=== PATIENT | female | born 1960 | race Caucasian/White ===

== ENCOUNTER → 2016-05-19 | Outpatient (CLI) | payer MEDICARE, MEDICAID ==
[~2016-05-19] MED LIST: AGM875T PO; ALBU17AE23 IH; ALBU8.5H2 IH; ALEN70TA2 PO; ALEN70TA47 PO; ALLERGY RELIEF PO; ALN70T PO; ARTHROTEC; ASP325T PO; ASP81TEC PO; ASPIRIN; AZMACORT INH; CHOL10003 PO; CHOL100084 PO; CRESTOR40 MG PO; CYCL10TA9 PO; CYMBALTA; DCS100C PO; DICL/MIS50 PO; DICL1TAB27 PO; DOXY-233 PO; DULO60CA6 PO; ESOM20SU PO; FEXO-104 PO; FLOVENT; FLT11013 IH; FLUT50DI2 INH; FOSAMAX; GABA300T PO; GABA600T2 PO; GABA800T2 PO; GABAPENTIN; GBPN300C PO; GLIP5TAB13 PO; HCT25T PO; HYDR-2890 PO; HYDR-34 PO; HYDR-3816 PO; HYDR-700 PO; HYDR12.56 PO; HYDR1TAB66 PO; IPRA3AMP11 INH; LEVO500T69 PO; LISI1TAB6 PO; LISI2.5T56 PO; LISINOPRIL; LOTREL PO; LRT10T PO; METF-380 PO; METF1000 PO; METFORMIN; METO-354 PO; METO10TA3 PO; METO25TA2 PO; MIRT15TA6 PO; MIRT30TA6 PO; MIRT45TA5 PO; MTF500T PO; MTP50T PO; NF-ESOM40C PO; OMEG-34 PO; OMG1KC PO; OXYC-309 PO; PREG100C22 PO; PREVACID; PROVENTIL; REGLAN; RNT150T PO; SCR1T1 PO; SIMV20TA3 PO; SIMV80TA3 PO; SIMVASTATIN; SRTR100T PO; SULF1TAB23 PO; TIZA4CAP PO; TRM50T PO
--- NOTE | 2016-05-19 14:46 | Diagnostic Imaging Report ---
EXAMINATION: DEXA scan. INDICATION: Osteopenia. TECHNIQUE: Bone mineral density estimated based on dual energy radiography over the lumbar spine and femoral necks, was performed. FINDINGS: The lumbar spine T-score is -1.2. This is 6% increased density compared to the previous study. The T score over the left femoral neck is -0.2 and on the right is -0.6. This is unchanged from previous measurements in 2014. IMPRESSION: Osteopenia. Dictated by: Dictated on workstation # [id number]
--- NOTE | 2016-05-19 18:27 | Diagnostic Imaging Report ---
Bilateral screening mammogram The current study was also evaluated with a Computer Aided Detection (CAD) system. INDICATION: Screening. No current complaints stated on the questionnaire. COMPARISON: 04/25/2014. FINDINGS: The breasts are composed of scattered fibroglandular densities. There are scattered benign-appearing calcifications. Allowing for technique and positional differences, no suspicious change is seen. IMPRESSION: No significant change. ACR BI-RADS Category 2: Benign findings. Result letter will be mailed to the patient. Note: At least 10% of breast cancer is not imaged by mammography. Dictated by: Dictated on workstation # [id number]
== END ==
LOC: RAD 10:16
PROVIDERS: ATTEND Nurse Practitioner Family
DX: Z12.31 Encounter for screening mammogram for malignant neoplasm of breast (principal); M85.88 Other specified disorders of bone density and structure, other site
CPT/HCPCS: 77080

== ENCOUNTER → 2016-10-13 | Outpatient (CLI) | payer MEDICARE, MEDICAID ==
--- NOTE | 2016-10-13 18:47 | ECHOCARDIOGRAPHY REPORT ---
DATE OF SERVICE: 10/13/2016 TWO DIMENSIONAL ECHOCARDIOGRAM REFERRING PHYSICIAN: Dr. Ambar Harrison MEASUREMENT: LVID end diastolic 3.7. IVS thickness 1.0. LVPW thickness 0.7. Left atrial diameter 4.6. Ejection fraction 60%. FINDINGS: 1. Technical quality is good. 2. The left ventricle is normal in size with normal contractility, systolic function appeared to be normal, estimated ejection fraction 60%, diastolic dysfunction is suggested by Doppler. 3. The left atrium is dilated. No clot or thrombus were seen within the left atrium. 4. The right atrium and right ventricle are normal in size. No clot or thrombus were seen within the right side. 5. Mitral valve is normal in morphology with mild mitral regurgitation noted by color Doppler flow. Doppler across the mitral valve showed E-A reversal, which is suggestive of diastolic dysfunction. 6. Aortic valve is trileaflet with normal opening and closing pattern. No significant aortic stenosis or regurgitation was seen. 7. Tricuspid valve is normal in morphology with mild tricuspid regurgitation noted by color Doppler flow. Doppler across the tricuspid valve estimated pulmonary artery pressure of 24+ right atrial pressure. 8. Pulmonic valve is functioning normally. 9. No pericardial effusion. CONCLUSION: 1. Normal left ventricular size and systolic function. Estimated ejection fraction 60%. Diastolic dysfunction is suggested by Doppler. 2. Left atrial dilatation. 3. Mild mitral and tricuspid regurgitation. 4. Estimated pulmonary artery pressure of 30 mmHg. Job ID: [id number] DocumentID: [id number] Dictated Date: 10/13/2016 12:32:42 Rn Homecare Date: 10/13/2016 13:00:16 Dictated By: CAROLINA ABAD MD
== END ==
LOC: CARD 11:06
PROVIDERS: ATTEND Physician Assistant
DX: I25.10 Atherosclerotic heart disease of native coronary artery without angina pectoris (principal); R00.2 Palpitations; E78.2 Mixed hyperlipidemia; E66.01 Morbid (severe) obesity due to excess calories; I08.1 Rheumatic disorders of both mitral and tricuspid valves
CPT/HCPCS: 93306

== ENCOUNTER → 2016-12-28 | Outpatient (CLI) | payer MEDICARE, MEDICAID ==
[~2016-12-28] VITALS: Ht 165.1 cm; Wt 113.4 kg
[~2016-12-28] MED LIST changes: +CATHETER FLUSH 10 ML SYR IV PRN; +REGADENOSON 0.4 MG/5 ML SYR (LEXISCAN) IV ONE
[2016-12-28 09:00] VITALS: BP 144/83
--- NOTE | 2016-12-29 04:59 | STRESS TEST ---
DATE OF SERVICE: 12/28/2016 LEXISCAN MYOVIEW STRESS TEST REPORT REFERRING PHYSICIAN: Dr. Indira Skaggs, [facility]. Baseline heart rate is 87. Baseline blood pressure is 144/83. Baseline EKG is sinus rhythm with no ischemic changes. In summary, the patient was injected with 10.53 mCi of technetium-99 Myoview and the resting images were obtained and the patient received 0.4 mg of Lexiscan followed by 31.1 mCi of technetium-99 Myoview. Throughout the test, there were no EKG changes. The resting and stress images were reviewed and compared in the short axis, horizontal long axis and vertical long axis views. Review of the images showed breast attenuation affecting the quality of the images, overall there is no significant ischemia or infarction on SPECT images. SSS is 1, SDS 1, TID value 1.01. On the gated images, the left ventricle appeared to be prominent with normal contractility, calculated ejection fraction 50%. CONCLUSION: 1. The patient tolerated Lexiscan well. 2. Breast attenuation with typical female pattern with no significant ischemia or infarction on SPECT images. 3. Prominent left ventricle with normal contractility, calculated ejection fraction 50%. Job ID: [id number] DocumentID: [id number] Dictated Date: 12/28/2016 16:11:45 Nutritional Assistant Date: 12/28/2016 17:22:16 Dictated By: CAROLINA ABAD MD
== END ==
LOC: CARD 07:30
PROVIDERS: ATTEND Physician Assistant
DX: I25.10 Atherosclerotic heart disease of native coronary artery without angina pectoris (principal); R00.2 Palpitations; E78.2 Mixed hyperlipidemia; E66.01 Morbid (severe) obesity due to excess calories; Z68.41 Body mass index [BMI] 40.0-44.9, adult
CPT/HCPCS: 78452; 93017

== ENCOUNTER → 2017-05-18 | Outpatient (CLI) | payer MEDICARE, MEDICAID ==
[~2017-05-18] MED LIST changes: -CATHETER FLUSH 10 ML SYR IV PRN; -REGADENOSON 0.4 MG/5 ML SYR (LEXISCAN) IV ONE
--- NOTE | 2017-05-18 16:33 | Diagnostic Imaging Report ---
EXAMINATION: Digital mammogram bilateral screening with CAD. INDICATION: Screening. COMPARISON: 05/19/2016, 05/07/2015, and 04/25/2014. PERSONAL HISTORY: At this time, there are no current complaints. FINDINGS: There are scattered fibroglandular densities in both breasts which could obscure a lesion. Overall, there does not appear to have been any significant change when compared to the prior exam. No primary or secondary sign of malignancy is noted. IMPRESSION: There is no radiographic evidence for malignancy. ACR BI-RADS Category 2: Benign findings. Result letter will be mailed to the patient. Note: At least 10% of breast cancer is not imaged by mammography. Dictated by: Dictated on workstation # [id number]
== END ==
LOC: RAD 08:59
PROVIDERS: ATTEND Nurse Practitioner Family
DX: Z12.31 Encounter for screening mammogram for malignant neoplasm of breast (principal)
CPT/HCPCS: 77067

== ENCOUNTER → 2017-05-31 | Outpatient (CLI) | payer MEDICARE, MEDICAID ==
--- NOTE | 2017-05-31 15:00 | Diagnostic Imaging Report ---
INDICATION: [id number] history of smoking. COMPARISON: None. TECHNIQUE: Routine noncontrast low-dose CT of the chest was performed per department protocol. FINDINGS: Evaluation of the lung osorio demonstrates no suspicious pulmonary nodules or masses. There is mild scarring and/or atelectasis within the left lower lobe. There is otherwise no focal consolidation, large effusion, nor pneumothorax. Cardiomediastinal structures show normal heart size. There are a few calcified right perihilar lymph nodes. Otherwise, no pathologically enlarged or morphologically abnormal adenopathy is seen within the mediastinum, fuad, nor axillae. There is no large pericardial effusion. Bony structures show age-related degenerative changes of the thoracic spine. No acute osseous abnormalities are identified. Included portions of the upper abdomen are also heavily obscured, but show no gross acute abnormalities. IMPRESSION: 1. No suspicious pulmonary nodules or masses. Continued annual screening with low-dose CT of the chest is recommended. 2. No other acute cardiopulmonary process is identified. LUNG-RADS CATEGORY: 1 MODIFIER: None. OTHER SIGNIFICANT FINDINGS: None. Dictated by: Dictated on workstation # [id number]
== END ==
LOC: RAD 11:26
PROVIDERS: ATTEND Nurse Practitioner Family
DX: Z12.2 Encounter for screening for malignant neoplasm of respiratory organs (principal); Z87.891 Personal history of nicotine dependence

== ENCOUNTER 2017-11-22 09:30 | Emergency (ER) | payer MEDICARE, MEDICAID ==
[~2017-11-22] VITALS: Ht 165.1 cm; Wt 113.4 kg
--- OUTSIDE RECORDS SUMMARY | 2017-11-22 09:38 | XMS REPORT ---
Author Author KELSIE JENNIFER [facility] Address [address] [place] [address] Care Team Providers Care Popcorn Vendor Name Role Phone JENNIFER IGLESIAS Unavailable PROBLEMS Type Condition ICD9-CM Code LSZ16-SG Code Onset Dates Condition Status SNOMED Code Problem Depressive disorder, not elsewhere classified F32.9 Active 10497642 Problem DM neuro manif type II E11.40 Active 06599344 Problem Diabetes mellitus, controlled E11.9 Active 509473246 Problem Anxiety disorder, unspecified F41.9 Active 279498791 Problem Abscess, ear canal H60.00 Active 53419639 Problem Type 2 diabetes mellitus without complications E11.9 Active 841215693 Problem Encounter for Zostavax administration Z23 Active 495310815 Problem Morbid obesity due to excess calories E66.01 Active 651885993 Problem Other infective otitis externa of left ear H60.392 Active 25568963 Problem Contusion of right foot, initial encounter S90.31XA Active 33293130 Problem DM neuro manif type II E11.49 Active 04494900 Problem High risk medication use Z79.899 Active 485314657274387 Problem Hyperlipidemia, unspecified hyperlipidemia type E78.5 Active 32942415 Problem Breast cancer screening Z12.31 Active 681280196 Problem Personal history of nicotine dependence Z87.891 Active 62310476 Problem Medicare annual wellness visit, initial Z00.00 Active 663352741 Problem Strep throat J02.0 Active 73725941 Problem Other microscopic hematuria R31.29 Active 595797177 Problem Other hammer toe(s) (acquired), left foot M20.42 Active 86500078 Problem Mild persistent asthma without complication J45.30 Active 696255061 Problem Essential hypertension I10 Active 97012181 Problem Pain in right ankle and joints of right foot M25.571 Active 706070152 Problem Pain in left ankle and joints of left foot M25.572 Active 006866203 Problem BMI 40.0-44.9, adult Z68.41 Active 109886329 Problem Other chronic pain G89.29 Active 13531772 Problem Gynecologic exam normal Z01.419 Active 022743763 Problem Breast cancer screening Z12.39 Active 607796097 Problem Other hammer toe(s) (acquired), right foot M20.41 Active 239644798 Problem Osteopenia M85.80 Active 667686530 Problem Anxiety associated with depression F41.8 Active 656534165 Problem Type 2 diabetes mellitus with diabetic neuropathy, without long-term current use of insulin E11.40 Active 60935566 Problem Creatinine elevation R79.89 Active 896363099 Problem Lobar pneumonia J18.1 Active 743468338 ALLERGIES No Information ENCOUNTERS Encounter Location Date Diagnosis [facility] [id number] [id number] Oct, DM neuro manif type II E11.49 [facility] [address] [id number] [place] [address] September, DM neuro manif type II E11.49 and BMI 40.0-44.9, adult Z68.41 [facility] [address] [id number] [place] [address] Aug, Anxiety disorder, unspecified F41.9 [place] [address] [place] [address]153- 0793 Aug, [place] [id number] [place] [address]57- 2256 Aug, Onychocryptosis L60.0 and DM neuro manif type II E11.40 [facility] [address] [id number] [place]IST[place] [address] Aug, 2018 Acute bronchitis due to other specified organisms J20.8 and BMI 40.0-44.9, adult Z68.41 [facility] [id number] [place] [address] 57988- 1765 Aug, [facility] [address] [id number] [place] [address] Aug, [place] [address] [facility] [id number], [place] [address] Aug, Onychocryptosis L60.0 [facility] [address] [id number] [place] [address] Aug, [facility] [address] [id number] [place] [address] Jul, Strep throat J02.0 ; Other microscopic hematuria R31.29 and BMI 40.0-44.9, adult Z68.41 [facility] [address] [facility] [id number] [place] [address] Jul, [facility] [address] [id number] [place] [address] Jun, [facility] [place] [address] AVE [id number] [place] [address] Jun, [facility] [address] [place] [address] [id number] [place] [address] Jun, Type 2 diabetes mellitus without complications E11.9 ; BMI 40.0- 44.9, adult Z68.41 ; Pain in right ankle and joints of right foot M25.571 ; Pain in left ankle and joints of left foot M25.572 and Other chronic pain G89.29 [place] [address] [facility] [id number], [place] [address] May, Onychomycosis B35.1 ; Onychocryptosis L60.0 and DM neuro manif type II E11.40 [facility] [address] [id number] [place] [address] May, [facility] [address] [id number] [place] [address] May, [facility] [address] [id number] [place] [address] Apr, Medicare annual wellness visit, initial Z00.00 ; Personal history of nicotine dependence Z87.891 ; Breast cancer screening Z12.31 and BMI 40.0- 44.9, adult Z68.[address] [facility] [address] [id number] [place] [address] Apr, Anxiety disorder, unspecified F41.[address] [facility] [address] [id number] [place] [address] Feb, [facility] [address] [facility] [id number], [place] [address] Feb, Onychomycosis B35.1 and DM neuro manif type II E11.[address] [facility] [address] [id number] [place] [address] Feb, Type 2 diabetes mellitus without complications E11.9 and Encounter for immunization Z23 [facility] [address] [id number] [place] [address] Jan, Anxiety disorder, unspecified F41.9 [facility] [address] [address] [id number] [place] [address] Dec, [facility] [address] [facility] [id number], [place] [address] Nov, Right foot sprain, initial encounter S93.601A ; Onychomycosis B35.1 and DM neuro manif type II E11.[address] [facility] [address] [id number] [place] [address] Nov, Type 2 diabetes mellitus without complications E11.[address] [facility] [address] [id number] [place] [address] Nov, [facility] [address] [id number] [place] [address] Nov, Type 2 diabetes mellitus without complications E11.[address] [facility] [address] [id number] [place] [address] Nov, [facility] [address] [id number] [place] [address] Nov, [facility] [address] [id number] [place] [address] Nov, Type 2 diabetes mellitus without complications E11.9 ; Contusion of right foot, initial encounter S90.31XA and High risk medication use Z79.899 [facility] [address] [id number] [place] [address] Oct, High risk medication use Z79.899 [facility] [address] [id number] [place] [address] Oct, Anxiety disorder, unspecified F41.9 [facility] [address] [id number] [place] [address] September, Type 2 diabetes mellitus with diabetic neuropathy, without long- term current use of insulin E11.40 [facility] [address] [facility] [id number] [place] [address] [address] Aug, Onychomycosis B35.1 ; DM neuro manif type II E11.40 and Other hammer toe(s) (acquired), right foot M20.41 [facility] [address] [id number] [place] [address] Aug, Type 2 diabetes mellitus without complications E11.9 ; Morbid obesity due to excess calories E66.01 and Encounter for immunization Z23 [facility] [address] [id number] [place] [address] Aug, [facility] [address] [id number] [place] [address] Aug, Anxiety associated with depression F41.8 [facility] [address] [id number] [place] [address] Jul, Anxiety disorder, unspecified F41.9 [facility] [address] [id number] [place] [address] Jun, Anxiety associated with depression F41.8 [facility] [address] [id number] [place] 201[address]86 Jun, Lobar pneumonia J18.1 [facility] [address] [id number] [place] [address] Jun, Pneumonia of left lower lobe due to infectious organism J18.1 [facility] [address] [id number] [place] [address] Jun, [facility] [address] [id number] [place] [address] Jun, [facility] [address] [address] May, Onychomycosis B35.1 ; Other hammer toe(s) (acquired), right foot M20.41 ; Other hammer toe(s) (acquired), left foot M20.42 and DM neuro manif type II E11.40 [facility] [address] [id number] [place] [address] May, [facility] [address] [id number] [place] [address]4762[address] May, [facility] [place] [address] [id number] [place] [address] May, [facility] [address] [place] [address] [id number] [place] [address] May, [facility] [address] [id number] [place] [address] May, Gynecologic exam normal Z01.419 ; Breast cancer screening Z12.39 and Creatinine elevation R79.89 [facility] [address] [id number] [place] 8[address]76[address] Apr, [facility] [address] [id number] [place] [address]771404[address] Apr, Creatinine elevation R79.89 [facility] [address] [id number] [place] [address] Apr, DM neuro manif type II E11.[address] [facility] [address]65[address], [place] [address]- [address] Feb, Onychomycosis B35.1 and DM neuro manif type II E11.[address] [id number] [place] [address] Feb, [address] [id number] [place] [address] Jan, Mild persistent asthma without complication J45.30 ; Anxiety disorder, unspecified F41.9 and Essential hypertension I10 [place] [address] [place] [address] 84414- 7632 Jan, Anxiety disorder, unspecified F41.9 and Depressive disorder , not elsewhere classified F32.9 [place] [address] [place] [id number] [place] [address] 48176- 3481 Dec, Anxiety disorder, unspecified F41.9 and Depressive disorder , not elsewhere classified F32.9 [facility] [id number] [place] [address] 13146 -3822 Dec, Left elbow pain M25.522 [facility] [address] [place] [address] [id number] [place] [address] 03337- 7961 Dec, Anxiety disorder, unspecified F41.9 and Depressive disorder , not elsewhere classified F32.9 [place] [address] [place] [address] 37554- 5793 Nov, Anxiety disorder, unspecified F41.9 and Depressive disorder , not elsewhere classified F32.9 [place] [address] [place] [address] 86315- 3813 Nov, Anxiety disorder, unspecified F41.9 and Depressive disorder , not elsewhere classified F32.[address] [id number] [place] 117314503 Oct, Diabetes mellitus, controlled E11.9 ; Hyperlipidemia, unspecified hyperlipidemia type E78.5 ; Essential hypertension I10 and Mild persistent asthma without complication J45.30 [place] [address] [place] [id number] [place] [address] 74245- 0275 Oct, Anxiety disorder, unspecified F41.9 and Depressive disorder , not elsewhere classified F32.9 [place] [address]65[address], [place] [address] September, Anxiety disorder, unspecified F41.9 and Depressive disorder , not elsewhere classified F32.9 [place] [address]65100[place], [place] [address]- 9057 Aug, Onychomycosis B35.1 and DM neuro manif type II E11.[address] [id number] [place] 862474797 Aug, [place] [address] [place] [address] 50160- 7208 Aug, Anxiety disorder, unspecified F41.9 and Depressive disorder , not elsewhere classified F32.[address] [id number] [place], [place] 372[address]117 Jul, Type 2 diabetes mellitus without complications E11.9 ; Encounter for Zostavax administration Z23 ; Morbid obesity due to excess calories E66.01 and Other infective otitis externa of left ear H60.[address] [place] [id number] [place] 664483744 Jul, [place] [address]00565100[place], [place] [address]- 9710 Jul, [place] [address]100[place], [place] [address]- 8584 Jul, [place] [address] [id number] [place] 038943958 Jun, [place] [address] [place] [address] 14537- 9503 Jun, Anxiety disorder, unspecified F41.9 and Depressive disorder , not elsewhere classified F32.[address] [place] [address] [id number] [place] 845955110 Jun, Abscess, ear canal H60.00 [facility] [address] [id number] [place] 077753144 Jun, Abscess, ear canal H60.[address] [id number] [place] 601[address] Jun, [facility] [address] [place] [id number]054[place]- 5214 May, Anxiety disorder, unspecified F41.9 and Depressive disorder , not elsewhere classified F32.[address] [id number] [place], [place] 863074747 Apr, Diabetes mellitus, controlled E11.9 and Breast cancer screening Z12.[address] [id number] [place] 445049859 Apr, Diabetes mellitus, controlled E11.9 ; Breast cancer screening Z12.39 and Morbid obesity due to excess calories E66.01 [facility] [address] [place] [address] 69596- 1055 Apr, Anxiety disorder, unspecified F41.9 and Depressive disorder , not elsewhere classified F32.[address] [id number] [place] [address] Mar, [facility] [address] [place] [id number] [place] [address] 31628- 9790 Mar, Encounter for immunization Z23 [facility] [address] [place] [address] 07637- 8721 Mar, Anxiety disorder, unspecified F41.9 and Depressive disorder , not elsewhere classified F32.9 [facility] [address] [place] [address] 70970- 0756 Feb, Foot ulcer, right L97.519 and DM neuro manif type II E11.40 [facility] [address] [place] [id number] [place] [address] 53973- 0379 Jan, Anxiety disorder, unspecified 300.00 and Depressive disorder , not elsewhere classified 311 [facility] [place] [address] [facility] [id number][place] [address] Jan, [facility] [address]100[place], [place] [address]- 5494 Jan, Cellulitis of right foot 682.7 ; Onychomycosis 110.1 ; Neuropathy 355.9 and Foot ulcer 707.15 [place] [address]65100[place], [place] [address]- 5948 Jan, Anxiety disorder, unspecified 300.00 and Depressive disorder , not elsewhere classified [address] [id number] [place] 135076807 Jan, Anxiety disorder, unspecified 300.00 ; Shortness of breath 786.05 and Coronary atherosclerosis of unspecified type of vessel, duckwater or graft 414.00 [place] [address] [place] [id number], [place] [address]- 6930 Dec, Anxiety disorder, unspecified 300.00 and Depressive disorder , not elsewhere classified [address] [place] [address], [place] [address]- 6573 Dec, Anxiety disorder, unspecified 300.00 and Depressive disorder , not elsewhere classified [address] [id number] [place] 3[address]10961 Nov, [place] [address] [place] [id number], [place] [address]- 8564 Nov, Anxiety disorder, unspecified 300.00 and Depressive disorder , not elsewhere classified [address] [id number] [place] 430681141 Nov, Shortness of breath 786.05 and Morbid obesity 278.01 [place] [address] [place] [id number] 39566049- 5618 Nov, Anxiety disorder, unspecified 300.00 and Depressive disorder , not elsewhere classified [address] [id number] [place], [place] 693828908 Oct, Asthma, moderate persistent 493.90 [facility] [address] [place] [id number], [place] 768144- 9545 Oct, Anxiety disorder, unspecified 300.00 and Depressive disorder , not elsewhere classified [address] [facility] [address] [place] [id number], [place] [address]- 1506 September, Hammertoe 735.4 ; Onychomycosis 110.1 and Type I diabetes mellitus with neurological manifestations 250.61 [facility] [address] [facility] [id number] [place]IST[place] 587[place] September, [facility] [address] [place] [address] 13826- 3676 September, Anxiety disorder, unspecified 300.00 and Depressive disorder , not elsewhere classified 311 [facility] [address] [facility] [id number] [place] 624033105 September, Diabetes type 2, controlled 250.00 ; Asthma, mild persistent 493.90 and Dermatitis, contact 692.9 [facility] [address] [facility] [id number] [place] [address] September, [facility] [address]65100[place], [place] [address]- 6960 September, Anxiety state, unspecified 300.00 and Depressive disorder, not elsewhere classified [address] [facility] [address] [place] [id number], [place] [address]- 8093 Aug, [facility] [address], [place] 14548274- [address]94 Aug, [facility] [address]65100[place], [place] [address]632059- 1992 Jul, [facility] [address], [place] 640912- [address]25 Jul, [facility] [address] [place] [id number], [place] [address]8911029- 8413 Jul, [facility] [address] [id number] [address]- 9317 Jul, 2014 [facility] [place] [facility] [address] [id number] [place] [address]- 1703 Jul, 2014 [facility] [place] [facility] [address] [id number] [place] [address]- 7304 Jul, 2014 [facility] [place] [facility] [address] [id number] [place] [address]- 4287 Jul, 2014 [facility] [place] [facility] [address] [id number] [place] [address]- 8946 Jul, [facility] [place] [facility] [address] [id number] [place] [address]- 4796 Jun, 2014 [facility] [place] [facility] [address] [facility] [id number] [place] [address]- 1274 Jun, 2014 [facility] [place] [facility] [address] [facility] [id number] [place] [address]- 7960 Jun, 2014 [facility] [place] [facility] [address] [facility] [id number] [place] [address]- 0345 Jun, 2014 [facility] [place] [facility] [address] [facility] [id number] [place] [address]- 5167 17 Jun, 2014 [facility] [place] [facility] [address] [facility] [id number] [place] [address]- 2030 17 Jun, 2014 [facility] [place] [facility] [address] [facility] [id number] [place] [address]- 4730 16 Jun, 2014 [facility] [place] [facility] [address] [facility] [id number] [place] [address]- 9046 16 Jun, 2014 [facility] [place] [facility] [address] [facility] [id number] [place] [address]- 3616 Jun, 2014 [facility] [place] [facility] [address] [facility] [id number] [place] [address]- 4676 11 Jun, 2014 [facility] [place] [facility] [address] [facility] [id number], [place] [address]- 2546 Jun, [facility] [place] [facility] [address] [id number] [place] [address]- 6242 Jun, [facility] [place] [facility] [address] [id number] [place] [address]- 2512 Jun, [facility] [place] [facility] [address] [id number] [place] [address]- 5060 Jun, [facility] [place] [facility] [address] [id number] [place] [address]- 9204 May, [facility] [place] [facility] [address] [id number] [place] [address]- 0440 May, [facility] [place] [facility] [address] [id number] [place] [address]- 1435 May, [facility] [place] [facility] [address] [id number] [place] [address]- 4165 May, [facility] [place] [facility] [address] [id number] [place] [address]- 3461 May, [facility] [place] [facility] [address] [id number] [place] [address]- 9665 May, [facility] [place] [facility] [address] [facility] [id number] [place] [address]- 4855 May, [facility] [place] [facility] [address] [id number] [place] [address]- 2062 May, [facility] [place] [facility] [address] [id number] [place] [address]- 8330 Apr, [facility] [place] [facility] [address] [id number] [place] [address]- 7756 Apr, [facility] [place] [facility] [address] [id number] [place] [address]- 7594 Apr, [facility] [place] [facility] [address] [id number] [place] [address]- 7578 Apr, [facility] [place] [facility] [address] [id number] [place] [address]- 3333 20 Apr, 2014 [facility] [place] [facility] [address] [id number] [place] [address]- 9806 20 Apr, 2014 [facility] [place] [facility] [address] [id number] [place] [address]- 0696 15 Apr, 2014 [facility] [place] [facility] [address] [id number] [place] [address]- 4536 15 Apr, 2014 [facility] [place] [facility] [address] [id number] [place] [address]- 0107 10 Apr, 2014 [facility] [place] [facility] [address] [id number] [place] [address]- 5573 Apr, [facility] [place] [facility] [address] [id number] [place] [address]- 4306 Apr, [facility] [place] [facility] [address] [id number] [place] [address] Apr, [facility] [place] [facility] [address] [id number] [place] [address] Mar, [facility] [place] [facility] [address] [id number] [place] [address] Mar, [facility] [place] [facility] [address] [id number] [place] [address] 18 Mar, 2014 [facility] [place] [facility] [address] [id number] [place] [address] 18 Mar, 2014 [facility] [place] [facility] [address] [id number] [place] [address] 17 Mar, 2014 [facility] [place] [facility] [address] [id number] [place] [address] 17 Mar, 2014 [facility] [place] [facility] [address] [id number] [place] [address] 12 Mar, 2014 [facility] [place] [facility] [address] [id number] [place] [address] Mar, [facility] [place] [facility] [address] [id number] [place] [address] Feb, [facility] [place] [facility] [address] [id number] [place] [address] Feb, [facility] [place] [facility] [address] [id number] [place] [address] Feb, [facility] [place] [facility] [address] [id number] [place] [address] Feb, [facility] [place] [facility] [address] [id number] [place] [address] Feb, [facility] [place] [facility] [address] [id number] [place] [address] Feb, [facility] [place] [facility] [address] [id number] [place] [address] Feb, [facility] [place] [facility] [address] [id number] [place] [address]- [address] Feb, [facility] [place] [facility] [address] [id number] [place] [address] 19 Jan, 2014 [facility] [place] [facility] [address] [id number] [place] [address] 19 Jan, 2014 [facility] [place] [facility] [address] [id number], [place] [address] 17 Sep, 2013 [facility] [place] [facility] [address] [id number], [place] [address] 17 Sep, 2013 [facility] [place] [facility] [address] [id number] [place] [address] 16 Sep, 2013 [facility] [place] [facility] [address] [id number], [place] [address] 16 Sep, 2013 [facility] [place] [facility] [address] [id number], [place] [address] 15 Jan, 2013 [facility] [place] [facility] [address] [id number] [place] [address] 2750 15 Jan, 2013 [facility] [place] [facility] [address] [id number] [place] [address]- 0346 15 Jan, 2014 [facility] [place] [facility] [address] [id number] [place] [address]- 1366 15 Jan, 2014 [facility] [place] [facility] [address] [id number] [place] [address]- 9666 09 Jan, 2014 [facility] [place] [facility] [address] [id number] [place] [address]- 4906 Jan, [facility] [place] [facility] [address] [id number] [place] [address]- 0560 Dec, [facility] [place] [facility] [address] [id number] [place] [address]- 0357 Dec, [facility] [place] [facility] [address] [id number] [place] [address]- 6035 Dec, [facility] [place] [facility] [address] [id number] [place] [address]- 1060 Dec, [facility] [place] [facility] [address] [id number] [place] [address]- 4167 Nov, [facility] [place] [facility] [address] [id number] [place] [address]- 6981 Nov, [facility] [place] [facility] [address] [id number] [place] [address]- 0177 Nov, [facility] [place] [facility] [address] [id number] [place] [address]- 1575 Nov, [facility] [place] [facility] [address] [id number] [place] [address]- 0906 Oct, [facility] [place] [facility] [address] [id number] [place] [address]- 1618 Oct, [facility] [place] [facility] [address] [id number] [place] [address]- 5597 Oct, [facility] [place] [facility] [address] [id number] [place] [address]- 8467 Oct, [facility] [place] [facility] [address] [id number] [place] [address]- 2819 Oct, [facility] [place] [facility] [address] [id number] [place] [address]- 9082 Oct, [facility] [place] [facility] [address] [id number] [place] [address]- 6631 Oct, [facility] [place] [facility] [address] [id number] [place] [address]- 6961 Oct, [facility] [place] [facility] [address] [id number] [place] [address]- 2569 Oct, [facility] [place] [facility] [address] [id number] [place] [address]- 1129 Oct, [facility] [place] [facility] [address] [id number] [place] [address]- 7517 September, [facility] [place] [facility] [address] [id number] [place] [address]- 7782 September, [facility] [place] [facility] [address] [id number] [place] [address]- 5882 September, [facility] [place] [facility] [address] [id number] [place] [address]- 6278 September, [facility] [place] [facility] [address] [id number] [place] [address]- 5987 September, [facility] [place] [facility] [address] [id number] [place] [address]- 5749 September, [facility] [place] [facility] [address] [id number] [place] [address]- 0628 September, [facility] [place] [facility] [address] [id number] [place] [address]- 6049 September, [facility] [place] [facility] [address] [id number] [place] [address]- 4261 Aug, [facility] [place] [facility] [address] [id number] [place] [address]- 2594 Aug, [facility] [place] [facility] [address] [id number] [place] [address]- 2179 Aug, [facility] [place] [facility] [address] [id number] [place] [address]- 1574 Aug, [facility] [place] [facility] [address] [id number] [place] [address]- 3186 Aug, [facility] [place] [facility] [address] [id number] [place] [address]- 4560 Aug, [facility] [place] [facility] [address] [id number] [place] [address]- 2025 Aug, [facility] [place] [facility] [address] [id number] [place] [address]- 5748 Aug, [facility] [place] [facility] [address] [id number] [place] [address]- 9551 Aug, [facility] [place] [facility] [address] [id number] [place] [address]- 4088 Jul, [facility] [place] [facility] [address] [id number] [place] [address]- 2658 Jul, [facility] [place] [facility] [address] [id number] [place] [address]- 8790 Jul, [facility] [place] [facility] [address] [id number] [place] [address]- 6958 Jul, [facility] [place] [facility] [address] [id number] [place] [address]- 0177 Jul, [facility] [place] [facility] [address] [id number] [place] [address]- 7476 Jul, [facility] [place] [facility] [address] [id number] [place] [address]- 2924 Jul, [facility] [place] [facility] [address] [id number] [place] [address]- 8876 24 Jul, 2013 [facility] [place] [facility] [address] [id number] [place] [address]- 1536 18 Jul, 2013 [facility] [place] [facility] [address] [id number] [place] [address]- 2976 18 Jul, 2013 [facility] [place] [facility] [address] [id number] [place] [address]- 0599 17 Jul, 2013 [facility] [place] [facility] [address] [id number] [place] [address]- 7566 Jul, [facility] [place] [facility] [address] [id number] [place] [address]- 5036 Jul, [facility] [place] [facility] [address] [id number] [place] [address]- 7276 Jul, [facility] [place] [facility] [address] [id number] [place] [address]- 6643 Jul, [facility] [place] [facility] [address] [id number] [place] [address]- 5882 Jul, [facility] [place] [facility] [address] [id number] [place] [address]- 9435 Jul, [facility] [place] [facility] [address] [id number] [place] [address]- 5327 Jul, [facility] [place] [facility] [address] [id number] [place] [address]- 7796 Jul, [facility] [place] [facility] [address] [id number] [place] [address]- 4416 Jul, [facility] [place] [facility] [address] [id number] [place] [address]- 7826 Jun, [facility] [place] [facility] [address] [id number] [place] [address]- 2836 Jun, [facility] [place] [facility] [address] [id number] [place] [address]- 8469 Jun, [facility] [place] [facility] [address] [id number] [place] [address]- 1983 Jun, [facility] [place] [facility] [address] [id number] [place] [address]- 6716 Jun, [facility] [place] [facility] [address] [facility] [id number] [place] [address]- 6186 Jun, [facility] [place] [facility] [address] [id number] [place] [address]- 1618 Jun, [facility] [place] [facility] [address] [id number] [place] [address]- 6681 Jun, [facility] [place] [facility] [address] [facility] [id number] [place] [address]- 8416 Jun, [facility] [place] [facility] [address] [facility] [id number] [place] [address]- 4524 Jun, [facility] [place] [facility] [address] [id number] [place] [address]- 5975 Jun, [facility] [place] [facility] [address] [facility] [id number] [place] [address]- 6989 Jun, [facility] [place] [facility] [address] [facility] [id number] [place] [address]- 5833 May, [facility] [place] [facility] [address] [id number] [place] [address]- 2407 May, [facility] [place] [facility] [address] [id number] [place] [address]- 9166 May, [facility] [place] [facility] [address] [id number] [place] [address]- 6213 May, [facility] [place] [facility] [address] [facility] [id number] [place] [address]- 4271 May, [facility] [place] [facility] [address] [facility] [id number] [place] [address]- 3181 May, [facility] [place] [facility] [address] [id number] [place] [address]- 3105 May, [facility] [place] [facility] [address] [id number] [place] [address]- 2669 May, [facility] [place] [facility] [address] [id number] [place] [address]- 3203 May, [facility] [place] [facility] [address] [id number] [place] [address]- 4964 May, [facility] [place] [facility] [address] [id number] [place] [address]- 3704 May, [facility] [place] [facility] [address] [id number] [place] [address]- 2921 May, [facility] [place] [facility] [address] [id number] [place] [address]- 3792 May, [facility] [place] [facility] [address] [id number] [place] [address]- 5403 May, [facility] [place] [facility] [address] [id number] [place] [address]- 7682 Apr, [facility] [place] [facility] [address] [id number] [place] [address]- 1064 Apr, [facility] [place] [facility] [address] [id number] [place] [address]- 3122 Apr, [facility] [place] [facility] [address] [id number] [place] [address]- 6690 17 Apr, 2013 [facility] [place] [facility] [address] [id number] [place] [address]- 5499 16 Apr, 2013 [facility] [place] [facility] [address] [id number] [place] [address]- 1298 16 Apr, 2013 [facility] [place] [facility] [address] [id number] [place] [address]- 9386 12 Apr, 2013 [facility] [place] [facility] [address] [id number] [place] [address]- 7694 Apr, [facility] [place] [facility] [address] [id number] [place] [address]- 3215 Apr, [facility] [place] [facility] [address] [id number] [place] [address]- 2889 Apr, [facility] [place] [facility] [address] [id number] [place] [address]- 3417 Apr, [facility] [place] [facility] [address] [id number] [place] [address]- 9506 Apr, [facility] [place] [facility] [address] [id number] [place] [address]- 7026 Mar, [facility] [place] [facility] [address] [id number] [place] [address]- 6336 Mar, [facility] [place] [facility] [address] [id number] [place] [address]- 3097 Mar, [facility] [place] [facility] [address] [id number], [place] [address]- 7070 Mar, [facility] [place] [facility] [address] [id number], [place] [address]- 6276 Mar, [facility] [place] [facility] [address] [id number], [place] [address]- 0552 Mar, [facility] [place] [facility] [address] [id number], [place] [address]- 5531 Mar, [facility] [place] [facility] [address] [id number], [place] [address]- 4626 Mar, [facility] [place] [facility] [address] [id number], [place] [address]- 5095 Mar, [facility] [place] [facility] [address] [id number], [place] [address]- 6025 Mar, [facility] [place] [facility] [address] [id number], [place] [address]- 3089 Mar, [facility] [place] [facility] [address] [facility] [id number], [place] [address]- 3665 Mar, [facility] [address] [facility] [id number], [place] 2630 Feb, [facility] [address] [facility] [id number], [place] [address]- 3073 Feb, [facility] [address] [id number][place] [id number] Feb, [facility] [address] [facility] [id number], [place] [address]- 9619 Feb, [facility] [address] [facility] [id number], [place] [address]- 8796 Feb, [facility] [address] [facility] [id number], [place] [address]- 7541 Feb, [facility] [address] [facility] [id number], [place] [address]- 7642 Feb, [facility] [address] [facility] [id number], [place] [address]- 8138 Feb, [facility] [address] [facility] [id number], [place] [address]- 6215 Feb, [facility] [address] [facility] [id number], [place] [address]- 2380 Feb, [facility] [place] [facility] [address] [facility] [id number], [place] [address]- 8800 Feb, [facility] [place] [facility] [address] [facility] [id number], [place] [address]- 6089 Feb, [facility] [address] [facility] [id number], [place] [address]- 9317 Feb, [facility] [place] [facility] [address] [facility] [id number], [place] [address]- 4403 Jan, [facility] [address] [id number][place] [id number] Jan, [facility] [address] [id number] [place] [id number] 16 Jan, 2013 [facility] [place] [address] [id number] [place] [id number] Jan, [facility] [place] [address] [id number] [place] [address] Jan, [facility] [place] [facility] [address] [id number] [place] [address]- 2241 Jan, [facility] [place] [address] [id number] [place] [address] Jan, [facility] [place] [facility] [address] [id number] [place] [address]- 0326 Dec, [facility] [place] [facility] [address] [id number] [place] [address]- 3899 Dec, [facility] [place] [facility] [address] [facility] [id number] [place] [address]- 0006 Dec, [facility] [place] [address] [id number] [place] [id number] Dec, [facility] [place] [address] [id number] [place] [id number] Dec, [facility] [place] [address] [id number] [place] [id number] Dec, [facility] [place] [facility] [address] [id number] [place] [address]- 0432 Dec, [facility] [place] [facility] [address] [facility] [id number] [place] [address]- 7719 Dec, [facility] [place] [address] [id number] [place] [id number] Dec, [facility] [place] [facility] [address] [id number] [place] [address]- 9722 Dec, [facility] [place] [facility] [address] [facility] [id number] [place] [address]- 1536 Nov, [facility] [place] [facility] [address] [facility] [id number] [place] [address]- 5934 Nov, [facility] [place] [facility] [address] [facility] [id number] [place] [address]- 2546 Nov, [facility] [place] [address] [id number] [place] [id number] Nov, [facility] [place] [address] [facility] [id number] [place] [id number] Oct, [facility] [place] [address] [facility] [id number] [place] [id number] Oct, [facility] [place] [facility] [address] [facility] [id number], [place] [address]- 4436 Oct, [facility] [place] [facility] [address] [facility] [id number] [place] [address]- 2546 Oct, [facility] [place] [facility] [address] [facility] [id number], [place] [address]- 6956 Oct, [facility] [place] [address] [facility] [id number] [place] [id number] Oct, [facility] [place] [facility] [id number], [place] [address]- 7666 Oct, [facility] [place] [address] [facility] [id number] [place] [id number] Oct, [facility] [place] [address] [facility] [id number][place] [id number] September, [facility] [place] [facility] [address] [facility] [id number], [place] [address]- 2746 September, [facility] [place] [address] [facility] [id number][place] [address] September, [facility] [place] [facility] [address] [facility] [id number], [place] [address]- 2546 September, [facility] [place] [facility] [address] [facility] [id number], [place] [address]- 8416 September, [facility] [place] [facility] [address] [facility] [id number], [place] [address]- 2546 September, [facility] [place] [address] [facility] [id number][place] [id number] September, [facility] [place] [facility] [address] [id number], [place] [address]- 8376 September, [facility] [address] [facility] [id number] [place] [address]- 4226 September, [facility] [place] [facility] [address] [facility] [id number] [place] [address]- 5686 Aug, [facility] [address] [facility] [id number] [place] [id number] Aug, [facility] [address] [facility] [id number] [place] [id number] Aug, [facility] [address] [facility] [id number], [place] [address]- 7596 Aug, [facility] [place] [facility] [address] [facility] [id number], [place] [address]- 2546 Aug, [facility] [address] [id number][place] [id number] 15 Aug, 2012 [facility] [address] [facility] [id number][place] [id number] Aug, [facility] [address] [facility] [id number], [place] [address]- 8438 Aug, [facility] [place] [facility] [address] [facility] [id number], [place] [address]- 8106 Aug, [facility] [place] [facility] [address] [facility] [id number], [place] [address]- 7567 Jul, [facility] [place] [address] [facility] [id number][place] [id number] Jul, [facility] [place] [facility] [address] [facility] [id number] [place] [address]- 4419 Jul, [facility] [place] [facility] [address] [facility] [id number], [place] [address]- 6970 Jul, [facility] [place] [facility] [address] [facility] [id number], [place] [address]- 3341 Jul, [facility] [place] [facility] [address] [facility] [id number], [place] [address]- 2546 Jul, [facility] [address] [facility] [id number], [place] [address]- 2546 Jul, [facility] [place] [facility] [address] [id number], [place] [address]- 2546 Jul, [facility] [place] [address] [id number][place] [id number] Jul, [facility] [place] [address] [id number][place] [id number] Jun, [facility] [address] [facility] [id number], [place] [address]- 5986 Jun, [facility] [place] [address] [id number][place] [id number] Jun, [facility] [id number], [place] [address] Jun, [facility] [id number], [place] [address] May, [facility] [id number], [place] [address] May, [facility] [id number][place] [id number] May, [facility] [address] [id number][place] [id number] May, [facility] [place] [facility] [id number], [place] [address] May, [facility] [address] [id number], [place] [id number] May, [facility] [place] [facility] [address] [facility] [id number], [place] [address] May, [facility] [place] [facility] [address] [facility] [id number], [place] [address] May, [facility] [address] [id number][place] [id number] Apr, [facility] [address] [id number][place] [id number] Apr, [facility] [address] [facility] [id number] [place] [address] Apr, [facility] [place] [facility] [address] [facility] [id number] [place] [address] Apr, [facility] [place] [facility] [address] [facility] [id number] [place] [address] Apr, [facility] [place] [facility] [address] [facility] [id number] [place] [address] Apr, [facility] [address] [facility] [id number] [place] [id number] Apr, [facility] [place] [facility] [address] [facility] [id number] [place] [address] Apr, [facility] [place] [facility] [id number] [address] Apr, [facility] [place] [facility] [address] [facility] [id number], [place] [address] Apr, [facility] [address] [facility] [id number] [place] [id number] Apr, [facility] [place] [facility] [address] [facility] [id number], [place] [address] Apr, [facility] [place] [facility] [address] [facility] [id number], [place] [address] Apr, [facility] [place] [facility] [address] [facility] [id number], [place] [address] Apr, [facility] [place] [facility] [address] [facility] [id number] [place] [address] Mar, [facility] [place] [facility] [address] [facility] [id number] [place] [address] Mar, [facility] [place] [facility] [address] [facility] [id number] [place] [address] Mar, [facility] [place] [facility] [address] [facility] [id number], [place] [address] Mar, [facility] [address] [facility] [id number][place] [id number] Mar, [facility] [place] [facility] [address] [facility] [id number], [place] [address] Mar, [facility] [address] [facility] [id number], [place] [id number] Mar, [facility] [place] [facility] [address] [facility] [id number], [place] [address] Mar, [facility] [address] [facility] [id number][place] [id number] Feb, [facility] [place] [facility] [address] [facility] [id number], [place] [address] Feb, [facility] [place] [facility] [id number], [place] [address] Feb, [facility] [place] [facility] [address] [facility] [id number], [place] [address] Feb, [facility] [place] [facility] [address] [facility] [id number], [place] [address] Jan, [facility] [id number], [place] [address] Jan, [facility] [place] [facility] [address] [facility] [id number], [place] [address] 13 Jan, 2012 [facility] [place] [facility] [address] [facility] [id number], [place] [address] 10 Jan, 2012 [facility] [place] [facility] [address] [facility] [id number], [place] [address] 05 Jan, 2012 [facility] [address] [facility] [id number][place] [id number] Jan, [facility] [place] [facility] [address] [facility] [id number], [place] [address] Dec, [facility] [address] [facility] [id number], [place] [id number] Dec, [facility] [place] [facility] [address] [id number] [place] [address] Dec, [facility] [place] [facility] [address] [facility] [id number] [place] [address]- [address] Dec, [facility] [place] [facility] [address] [facility] [id number] [place] [address]- [address] Nov, [facility] [place] [facility] [address] [facility] [id number] [place] [address]- [address]87 Nov, [facility] [place] [facility] [address] [facility] [id number] [place] [address]- [address] Nov, [facility] [address] [facility] [id number], [place] [id number] Nov, [facility] [place] [facility] [address] [facility] [id number] [place] [address] Nov, [facility] [address] [facility] [id number], [place] [id number] Nov, [facility] [place] [facility] [address] [facility] [id number] [place] [address] Nov, [facility] [place] [facility] [address] [facility] [id number], [place] [address] Nov, [facility] [place] [facility] [address] [facility] [id number], [place] [address]- [address] Nov, [facility] [place] [facility] [address] [facility] [id number], [place] [address]- 6 Oct, [facility] [place] [facility] [address] [facility] [id number] [place] [address]67 Oct, [facility] [address] [id number] [place] [address] Oct, [facility] [address] [id number], [place] [id number] Oct, [facility] [address] [id number], [place] [id number] Oct, [facility] [place] [facility] [address] [id number] [place] [address]- [address] Oct, [facility] [address] [id number] [place] [address]66 Oct, [facility] [place] [facility] [address] [id number] [place] [address]- 9666 Oct, [facility] [place] [facility] [address] [id number] [place] [address]- 8036 September, [facility] [place] [facility] [address] [id number] [place] [address]- 9477 September, [facility] [place] [facility] [address] [id number] [place] [address] September, [facility] [address] [id number] [place] [address] Aug, [facility] [place] [facility] [address] [id number] [place] [address] Aug, [facility] [address] [id number] [place] [address] Aug, [facility] [address] [facility] [id number] [place] [address] Aug, [facility] [address] [id number] [address] Aug, [facility] [id number] [id number] Jul, [facility] [address] [id number] [place] [address] Jul, [facility] [place] [facility] [address] [facility] [id number] [place] [address] 24 Jun, 2011 [facility] [place] [facility] [address] [id number] [place] [address] Jun, [facility] [place] [facility] [address] [facility] [id number] [place] [address] Jun, [facility] [address] [id number] [place] [address] 10 Jun, 2011 [facility] [place] [facility] [address] [id number] [place] [address] 02 Jun, 2011 [facility] [place] [facility] [address] [id number] [place] [address] May, [facility] [place] [facility] [address] [id number] [place] [address] May, [facility] [address] [id number] [place] [address] May, [facility] [place] [facility] [address] [id number] [place] [address] May, [facility] [place] [facility] [address] [id number] [place] [address] May, [facility] [place] [facility] [address] [id number] [place] [address] May, [facility] [address] [id number] [place] [address] May, [facility] [place] [facility] [address] [id number] [place] [address] May, [facility] [place] [facility] [address] [id number] [place] [address] 27 Apr, 2011 [facility] [place] [facility] [address] [id number] [place] [address] 20 Apr, 2011 [facility] [place] [facility] [address] [id number] [place] [address] 16 Apr, 2011 [facility] [place] [facility] [address] [id number] [place] [address] 15 Apr, 2011 [facility] [place] [facility] [address] [id number] [place] [address] 13 Apr, 2011 [facility] [place] [facility] [address] [id number] [place] [address] 05 Apr, 2011 [facility] [place] [facility] [address] [id number] [place] [address] Mar, [facility] [place] [facility] [address] [id number] [place] [address] Mar, [facility] [place] [facility] [address] [id number] [place] [address] 15 Mar, 2011 [facility] [place] [facility] [address] [id number] [place] [address] 14 Mar, 2011 [facility] [place] [facility] [address] [id number] [place] [address] Mar, [facility] [place] [facility] [address] [id number] [place] [address] Mar, [facility] [place] [facility] [address] [id number] [place] [address] Mar, [facility] [place] [facility] [address] [id number] [place] [address] Mar, [facility] [place] [facility] [address] [id number] [place] [address] Feb, [facility] [place] [facility] [address] [id number] [place] [address] 16 Jun, 2010 [facility] [place] [facility] [address] [id number] [place] [address] May, [facility] [place] [facility] [address] [id number] [place] [address] May, [facility] [place] [facility] [address] [id number] [place] [address] Apr, [facility] [place] [facility] [address] [id number] [place] [address] Apr, [facility] [place] [facility] [address] [id number] [place] [address] Apr, [facility] [place] [facility] [address] [id number] [place] [address] Mar, [facility] [place] [facility] [address] [id number] [place] [address] Mar, [facility] [place] [facility] [address] [id number] [place] [address] Mar, [facility] [place] [facility] [address] [id number] [place] [address] Mar, [facility] [place] [facility] [address] [id number] [place] [address] Mar, [facility] [place] [facility] [address] [id number] [place] [address] Feb, [facility] [place] [facility] [address] [id number] [place] [address] Feb, [facility] [address] [id number] [place] [address] Oct, [facility] [place] [facility] [address] [id number] [place] [address] September, [facility] [place] [facility] [address] [id number] [place] [address] Apr, [facility] [place] [facility] [address] [id number] [place] [address] Apr, [facility] [place] [facility] [address] [id number], [place] [address] 30 Mar, 2009 [facility] [place] [facility] [address] [id number] [place] [address] Mar, [facility] [place] [facility] [address] [id number] [place] [address] Mar, [facility] [place] [facility] [address] [id number] [place] [address] 06 Mar, 2009 [facility] [place] [facility] [address] [id number], [place] [address] Mar, [facility] [address] [facility] [id number] [place] [address] Feb, [facility] [address] [facility] [id number][place] [address] Feb, [facility] [address] [facility] [id number], [place] [address] Jan, [facility] [address] [facility] [id number], [place] [address] 25[address] Oct, IMMUNIZATIONS No Known Immunizations SOCIAL HISTORY Never Assessed REASON FOR VISIT mammo results/letter PLAN OF CARE VITAL SIGNS MEDICATIONS Unknown Medications RESULTS No Results PROCEDURES No Known procedures INSTRUCTIONS MEDICATIONS ADMINISTERED No Known Medications MEDICAL (GENERAL) HISTORY Type Description Date Medical History hypertension Medical History emphysema, asthma Medical History Chronic reflux with Garner's per EGD 04/2011 Medical History hyperlipidemia Medical History type 2 diabetes Medical History osteopenia Medical History Stroke syndrome-left side CVA 10/2009 Medical History chronic pain-on percocet for chronic back pain. Medical History depression and anxiety. Medical History 02/27/15 podiatry visit Medical History DM Neuropathy Medical History 04/2015 normal mammogram Medical History 10/2013 normal dexa of hips, osteopenia to spine Medical History 02/2017 DM foot exam Medical History chest CT no suspicious findings Surgical History appendectomy 1977 Surgical History hysterectomy total due uterine prolapse 1993 Surgical History tubal ligation 1988 Surgical History right tib/fib fracture post/fall at home plate screws 2013 Surgical History carpal tunnel ulnar release 2010 Surgical History right shoulder, right wrist, left wrist 2010 Surgical History cholecystectomy unknown Surgical History non obstructive CAD per Dr. Bah 2012 Surgical History Colonscopy-advised repeat in 5 years 07/09/2013 Surgical History EGD- normal, advised repeat in 5 years 07/09/14 Surgical History left fibula repairs-plates and screws 05/2015 Hospitalization History left ankle fracture and repair 05/2015
--- OUTSIDE RECORDS SUMMARY | 2017-11-22 09:38 | XMS REPORT ---
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 Name Role Phone JENNIFER IGLESIAS Unavailable PROBLEMS Type Condition ICD9-CM Code WMH60-SD Code Onset Dates Condition Status SNOMED Code Problem Osteopenia M85.80 Active 951521841 Problem Gynecologic exam normal Z01.419 Active 186613448 Problem Breast cancer screening Z12.39 Active 805972306 Problem Contusion of right foot, initial encounter S90.31XA Active 16197047 Problem Abscess, ear canal H60.00 Active 35724295 Problem High risk medication use Z79.899 Active 469034799011455 Problem Diabetes mellitus, controlled E11.9 Active 751734879 Problem Depressive disorder, not elsewhere classified F32.9 Active 21805764 Problem Lobar pneumonia J18.1 Active 556360944 Problem Creatinine elevation R79.89 Active 266000805 Problem Type 2 diabetes mellitus with diabetic neuropathy, without long-term current use of insulin E11.40 Active 86552449 Problem Anxiety associated with depression F41.8 Active 183717243 Problem Encounter for Zostavax administration Z23 Active 594298787 Problem Other infective otitis externa of left ear H60.392 Active 03311408 Problem Type 2 diabetes mellitus without complications E11.9 Active 583955502 Problem Morbid obesity due to excess calories E66.01 Active 592219924 Problem Mild persistent asthma without complication J45.30 Active 141165457 Problem Essential hypertension I10 Active 28426764 Problem DM neuro manif type II E11.40 Active 71543792 Problem DM neuro manif type II E11.49 Active 18986369 Problem Other hammer toe(s) (acquired), left foot M20.42 Active 75481407 Problem Anxiety disorder, unspecified F41.9 Active 984212373 Problem Hyperlipidemia, unspecified hyperlipidemia type E78.5 Active 44199801 Problem Other hammer toe(s) (acquired), right foot M20.41 Active 250145271 ALLERGIES Unknown Allergies SOCIAL HISTORY No smoking Hx information available PLAN OF CARE VITAL SIGNS MEDICATIONS Unknown Medications RESULTS No Results PROCEDURES No Known procedures IMMUNIZATIONS No Known Immunizations
--- OUTSIDE RECORDS SUMMARY | 2017-11-22 09:38 | XMS REPORT ---
Author RICK Kate Organization [employer] Address Unknown Phone Unavailable Care Team Providers Care Quantitative Equity Head Name Role Phone RICK BHARDWAJ CP Unavailable Allergies No Known Allergies Problems Problem Type Condition Code Onset Dates Condition Status Problem Anxiety disorder, unspecified F41.9 Active Problem Depressive disorder, not elsewhere classified F32.9 Active Problem Diabetes mellitus, controlled E11.9 Active Assessment Breast cancer screening Z12.39 Active Problem DM neuro manif type II E11.40 Active Assessment Diabetes mellitus, controlled E11.9 Active Medications No Known Medications Procedures Procedure Coding System Code Date VENIPUNCT, ROUTINE* CPT-4 81447 Apr 29, 2015 [facility] C[facility] NOBLL Apr 29, 2015 Results Name Result Date Reference Range Unit Abnormality Flag ROUTINE VENIPUNCTURE Summary Purpose [employer] Submission
--- OUTSIDE RECORDS SUMMARY | 2017-11-22 09:38 | XMS REPORT ---
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 Name Role Phone JENNIFER IGLESIAS CP Unavailable Allergies No Known Allergies Problems Problem Type Condition ICD-9 Code Onset Dates Condition Status Problem Obstructive sleep apnea (adult) (pediatric) 327.23 Active Problem Nausea alone 787.02 Active Problem Unspecified sleep disturbance 780.50 Active Problem Unspecified transient cerebral ischemia 435.9 Active Problem Coronary atherosclerosis of unspecified type of vessel, [place] or graft 414.00 Active Problem Anxiety disorder, unspecified 300.00 Active Problem Unspecified gastritis and gastroduodenitis without mention of hemorrhage 535.50 Active Problem Morbid obesity 278.01 Active Problem Other general symptoms 780.99 Active Problem Garner's esophagus 530.85 Active Problem Encounter for long-term (current) use of other medications V58.69 Active Problem Other chronic pain 338.29 Active Problem Shortness of breath 786.05 Active Medications Medication Code System Code Instructions Start Date End Date Status Dosage Crestor [facility] [address]-94 40 MG Orally Once a day May 29, 2014 1 tablet Results No Known Results Summary Purpose [employer] Submission
--- OUTSIDE RECORDS SUMMARY | 2017-11-22 09:39 | XMS REPORT ---
Author Author TRAE ELZA Organization [facility] Address [address] [place] [address] Care Team Providers Care Fire Captain Marine Name Role Phone ELZA LARKIN Unavailable PROBLEMS Type Condition ICD9-CM Code [id number] Code Onset Dates Condition Status SNOMED Code Problem Depressive disorder, not elsewhere classified F32.9 Active 10993386 Problem DM neuro manif type II E11.40 Active 45810627 Problem Diabetes mellitus, controlled E11.9 Active 687281611 Problem Anxiety disorder, unspecified F41.9 Active 924084661 Problem Abscess, ear canal H60.00 Active 16809857 Problem Type 2 diabetes mellitus without complications E11.9 Active 727771981 Problem Encounter for Zostavax administration Z23 Active 089312970 Problem Morbid obesity due to excess calories E66.01 Active 878094961 Problem Other infective otitis externa of left ear H60.392 Active 64630181 Problem Contusion of right foot, initial encounter S90.31XA Active 06834025 Problem DM neuro manif type II E11.49 Active 49723200 Problem High risk medication use Z79.899 Active 771097494044882 Problem Hyperlipidemia, unspecified hyperlipidemia type E78.5 Active 57913540 Problem Breast cancer screening Z12.31 Active 435401159 Problem Personal history of nicotine dependence Z87.891 Active 50339092 Problem Medicare annual wellness visit, initial Z00.00 Active 331673252 Problem Strep throat J02.0 Active 01256301 Problem Other microscopic hematuria R31.29 Active 238396227 Problem Other hammer toe(s) (acquired), left foot M20.42 Active 94175890 Problem Mild persistent asthma without complication J45.30 Active 097336810 Problem Essential hypertension I10 Active 47841404 Problem Pain in right ankle and joints of right foot M25.571 Active 763884083 Problem Pain in left ankle and joints of left foot M25.572 Active 039420124 Problem BMI 40.0-44.9, adult Z68.41 Active 657734374 Problem Other chronic pain G89.29 Active 55024209 Problem Gynecologic exam normal Z01.419 Active 926241830 Problem Breast cancer screening Z12.39 Active 887680959 Problem Other hammer toe(s) (acquired), right foot M20.41 Active 254643261 Problem Osteopenia M85.80 Active 612329220 Problem Anxiety associated with depression F41.8 Active 200743442 Problem Type 2 diabetes mellitus with diabetic neuropathy, without long-term current use of insulin E11.40 Active 45672126 Problem Creatinine elevation R79.89 Active 057679616 Problem Lobar pneumonia J18.1 Active 194548933 ALLERGIES Substance Reaction Event Type Date Status Ultram Unknown Drug Allergy Feb, Active Theophylline Unknown Drug Allergy Feb, Active Tegretol Unknown Drug Allergy Feb, Active Talacen Unknown Drug Allergy Feb, Active Imitrex Unknown Drug Allergy Feb, Active Erythromycin Unknown Drug Allergy Feb, Active Emcyt Unknown Drug Allergy Feb, Active Dilantin Unknown Drug Allergy Feb, Active Darvon Unknown Drug Allergy Feb, Active Byetta 10 MCG Pen Unknown Drug Allergy Feb, Active ENCOUNTERS Encounter Location Date Diagnosis [facility] [address] [id number] [id number] September, [facility] [employer] [place] [address] [id number] [place] [id number] Aug, Anxiety disorder, unspecified F41.9 [place] [address] [id number] [address] Aug, [facility] [address] [id number] [address] Aug, Onychocryptosis L60.0 and DM neuro manif type II E11.40 [facility] [address] [id number][place] [address] 12 Aug, 2017 Acute bronchitis due to other specified organisms J20.8 and BMI 40.0-44.9, adult Z68.41 [facility] [id number] [place] [address] Aug, [facility] [address] [id number][place] [address] Aug, [place] [address] [facility] [id number], [place] [address] Aug, Onychocryptosis L60.0 [facility] [address] [id number], [place] [address] Aug, [facility] [address] [id number][place] [address] Jul, Strep throat J02.0 ; Other microscopic hematuria R31.29 and BMI 40.0-44.9, adult Z68.41 [facility] [address] [id number], [place] [address] Jul, [facility] [address] [id number], [place] [address] Jun, [facility] [address] [id number], [place] [address] Jun, [facility] [address] [id number], [place] [address] Jun, Type 2 diabetes mellitus without complications E11.9 ; BMI 40.0- 44.9, adult Z68.41 ; Pain in right ankle and joints of right foot M25.571 ; Pain in left ankle and joints of left foot M25.572 and Other chronic pain G89.29 [place] [address] [facility] [id number][place] 64051758[place] [address] May, Onychomycosis B35.1 ; Onychocryptosis L60.0 and DM neuro manif type II E11.40 [facility] [address] [id number][place] [address] May, [facility] [address] [id number][place] [address] May, [facility] [address] [id number][place] [address] Apr, Medicare annual wellness visit, initial Z00.00 ; Personal history of nicotine dependence Z87.891 ; Breast cancer screening Z12.31 and BMI 40.0- 44.9, adult Z68.41 [facility] [address] [id number][place] [address] Apr, Anxiety disorder, unspecified F41.9 [facility] [address] [id number], [place] [address] Feb, [facility] [address] [facility] [id number][place] [address] Feb, Onychomycosis B35.1 and DM neuro manif type II E11.40 [facility] [address] [id number], [place] [address] Feb, Type 2 diabetes mellitus without complications E11.9 and Encounter for immunization Z23 [facility] [address] [id number], [place] [address] Jan, Anxiety disorder, unspecified F41.9 [facility] [address] [id number], [place] [address] Dec, [facility] [address] [facility] [id number][place] [address] Nov, Right foot sprain, initial encounter S93.601A ; Onychomycosis B35.1 and DM neuro manif type II E11.49 [facility] [address] [id number][place] [address] Nov, Type 2 diabetes mellitus without complications E11.9 [facility] [address] [id number], [place] [address] Nov, [facility] [address] [id number], [place] [address] Nov, Type 2 diabetes mellitus without complications E11.9 [facility] [address] [id number], [place] 1988[address] Nov, [facility] [address] [facility] [address] [id number], [place] [id number] Nov, [facility] [address] [place] [address] AVE [id number], [place] [address]386 Nov, Type 2 diabetes mellitus without complications E11.9 ; Contusion of right foot, initial encounter S90.31XA and High risk medication use Z79.899 [facility] [place] [address] [place] [address] AVE [id number], [place] [address] Oct, High risk medication use Z79.899 [facility] [address] [id number], [place] [address] Oct, Anxiety disorder, unspecified F41.9 [facility] [address] [id number], [place] [address] September, Type 2 diabetes mellitus with diabetic neuropathy, without long- term current use of insulin E11.40 [facility] [address] [place] [address] [id number][place] [address] Aug, Onychomycosis B35.1 ; DM neuro manif type II E11.40 and Other hammer toe(s) (acquired), right foot M20.41 [facility] [address] [place] [address] AV [id number], [place] [id number] Aug, Type 2 diabetes mellitus without complications E11.9 ; Morbid obesity due to excess calories E66.01 and Encounter for immunization Z23 [facility] [address] [facility] [address] [id number], [place] [id number] Aug, [facility] [address] [place] [address] AVE [id number], [place] 854167396 Aug, Anxiety associated with depression F41.8 [facility] [address] [facility] [address] [id number], [place] [address]47 Jul, Anxiety disorder, unspecified F41.9 [facility] [address] [id number], [place] 313284[address] Jun, Anxiety associated with depression F41.8 [facility] [address] [id number], [place] [address]1341 Jun, Lobar pneumonia J18.1 [facility] [address] [id number], [place] [id number] Jun, Pneumonia of left lower lobe due to infectious organism J18.1 [facility] [address] [id number], [place] [address]32 Jun, [facility] [address] [id number], [place] 69[address]78 Jun, [facility] [address] [facility] [id number], [place] 58336858- [address] May, Onychomycosis B35.1 ; Other hammer toe(s) (acquired), right foot M20.41 ; Other hammer toe(s) (acquired), left foot M20.42 and DM neuro manif type II E11.40 [facility] [address] [id number], [place] [address]37[address] May, [facility] [address] [id number], [place] 68506[address]87 May, [facility] [address] [id number], [place] [address]70904273 May, [facility] [address] [id number], [place] [address]7224 May, [facility] [address] [id number], [place] 49[address]263[address] May, Gynecologic exam normal Z01.419 ; Breast cancer screening Z12.39 and Creatinine elevation R79.89 [facility] [address] [id number], [place] 1690[address]871 Apr, [facility] [address] [id number], [place] 797238629 Apr, Creatinine elevation R79.89 [facility] [address] [id number], [place] [address]69818923 Apr, DM neuro manif type II E11.40 and Osteopenia M85.80 [place] [address] [place] [address] Feb, Onychomycosis B35.1 and DM neuro manif type II E11.[address] [id number], [place] [address]996[address] Feb, [address] [id number], [place] 320481815 Jan, Mild persistent asthma without complication J45.30 ; Anxiety disorder, unspecified F41.9 and Essential hypertension I10 [place] [address] [place] [id number] [place] [address]- 2367 Jan, Anxiety disorder, unspecified F41.9 and Depressive disorder , not elsewhere classified F32.9 [place] [address] [id number] [place] [address] 60935- 5149 Dec, Anxiety disorder, unspecified F41.9 and Depressive disorder , not elsewhere classified F32.9 [facility] [id number] [place] [address] -[address]92 Dec, Left elbow pain M25.522 [place] [address] [place] [id number] [place] [address] 65303- 2113 Dec, Anxiety disorder, unspecified F41.9 and Depressive disorder , not elsewhere classified F32.9 [place] [address] [id number] [place] [address] 98226- 5371 Nov, Anxiety disorder, unspecified F41.9 and Depressive disorder , not elsewhere classified F32.9 [place] [address] [id number] [place] [address] 15260- 3899 Nov, Anxiety disorder, unspecified F41.9 and Depressive disorder , not elsewhere classified F32.9 [place] [address] [facility] [address] [id number], [place] 130788085 Oct, Diabetes mellitus, controlled E11.9 ; Hyperlipidemia, unspecified hyperlipidemia type E78.5 ; Essential hypertension I10 and Mild persistent asthma without complication J45.30 [place] [address] [place] [address] 16915- 0316 Oct, Anxiety disorder, unspecified F41.9 and Depressive disorder , not elsewhere classified F32.9 [place] [address] [place] [address] 16427- 4331 September, Anxiety disorder, unspecified F41.9 and Depressive disorder , not elsewhere classified F32.9 [place] [address] [place] [id number] [place] [address]34- 5453 Aug, Onychomycosis B35.1 and DM neuro manif type II E11.[address] [id number], [place] [id number] Aug, [place] [address] [place] [address] 98320- 0009 Aug, Anxiety disorder, unspecified F41.9 and Depressive disorder , not elsewhere classified F32.[address] [id number], [place] 740553633 Jul, Type 2 diabetes mellitus without complications E11.9 ; Encounter for Zostavax administration Z23 ; Morbid obesity due to excess calories E66.01 and Other infective otitis externa of left ear H60.[address] [id number], [place] 184150102 Jul, [place] [address], [place] [address] Jul, [place] [address] [place] [address] 92566- 9729 Jul, [place] [address] [id number], [place] 959820497 Jun, [place] [address] [place] [address] 84081- 5031 Jun, Anxiety disorder, unspecified F41.9 and Depressive disorder , not elsewhere classified F32.9 [facility] [address] [id number], [place] 501441375 Jun, Abscess, ear canal H60.00 [facility] [address] [id number], [place] [id number] Jun, Abscess, ear canal H60.[address] [id number], [place] 764460414 Jun, [place] [address] [id number] [address]- [address] May, Anxiety disorder, unspecified F41.9 and Depressive disorder , not elsewhere classified F32.[address] [id number], [place] [id number] Apr, Diabetes mellitus, controlled E11.9 and Breast cancer screening Z12.[address] [id number], [place] 817671479 Apr, Diabetes mellitus, controlled E11.9 ; Breast cancer screening Z12.39 and Morbid obesity due to excess calories E66.01 [place] [address] [place] [address] 25780- 0900 Apr, Anxiety disorder, unspecified F41.9 and Depressive disorder , not elsewhere classified F32.[address] [id number], [place] [id number] Mar, [place] [address] [place] [address] 34406- 9671 Mar, Encounter for immunization Z23 [place] [address] [place] [id number] [place] [address] 49984- 5960 Mar, Anxiety disorder, unspecified F41.9 and Depressive disorder , not elsewhere classified F32.9 [place] [address] [place] [address] 11329- 3358 Feb, Foot ulcer, right L97.519 and DM neuro manif type II E11.40 [place] [address] [facility] [id number] [address]- [address]30 Jan, Anxiety disorder, unspecified 300.00 and Depressive disorder , not elsewhere classified 311 [facility] [address] [facility] [id number] [place] [id number] Jan, [place] [id number] [address] Jan, Cellulitis of right foot 682.7 ; Onychomycosis 110.1 ; Neuropathy 355.9 and Foot ulcer 707.15 [place] [id number] [address]- 3262 Jan, Anxiety disorder, unspecified 300.00 and Depressive disorder , not elsewhere classified [address] [id number], [place] 17[address]00665 Jan, Anxiety disorder, unspecified 300.00 ; Shortness of breath 786.05 and Coronary atherosclerosis of unspecified type of vessel, shoalwater or graft 414.00 [place] [id number] [address]- 2653 Dec, Anxiety disorder, unspecified 300.00 and Depressive disorder , not elsewhere classified 311 [place] [address] [id number] [address]- 8267 Dec, Anxiety disorder, unspecified 300.00 and Depressive disorder , not elsewhere classified 311 [facility] [address] [place], [place] [address] [id number], [place] [address]47841021 Nov, [address] [id number][place] [address]- [address] Nov, Anxiety disorder, unspecified 300.00 and Depressive disorder , not elsewhere classified [address] [id number], [place] 050865884 Nov, Shortness of breath 786.05 and Morbid obesity 278.01 [address], [place] [address]- 6[address] Nov, Anxiety disorder, unspecified 300.00 and Depressive disorder , not elsewhere classified 311 [facility] [address] [facility] [address] [id number], [place] [id number] Oct, Asthma, moderate persistent 493.90 [facility] [address] [id number] 94389742- 2115 Oct, Anxiety disorder, unspecified 300.00 and Depressive disorder , not elsewhere classified 311 [facility] [address], [place] [address]- [address]82 September, Hammertoe 735.4 ; Onychomycosis 110.1 and Type I diabetes mellitus with neurological manifestations 250.[address] [id number], [place] [id number] September, [facility] [address] [id number], [place] [address]- 3[address] September, Anxiety disorder, unspecified 300.00 and Depressive disorder , not elsewhere classified 311 [facility] [address] [place] [address] AVE [id number], [place] 507264298 September, Diabetes type 2, controlled 250.00 ; Asthma, mild persistent 493.90 and Dermatitis, contact 692.9 [address] [id number], [place] 57[address]2515 September, [facility] [address] [id number], [place] [address] 1985 September, Anxiety state, unspecified 300.00 and Depressive disorder, not elsewhere classified 311 [facility] [address]100[place], [place] [address]- 3674 Aug, [facility] [address] [place] [address] 49243- 6085 Aug, [facility] [address] [id number] 81933893- 9525 Jul, [facility] [address] [place] [address] 86429- 0321 30 Jul, 2014 [facility] [place] [facility] [address] [id number] [place] [address]- 9878 Jul, [facility] [place] [facility] [address] [id number] [place] [address]- 6951 Jul, [facility] [place] [facility] [address] [facility] [id number] [place] [address]- 7998 Jul, [facility] [place] [facility] [address] [facility] [id number] [place] [address]- 3797 13 Jul, 2014 [facility] [place] [facility] [address] [id number] [place] [address]- 6573 Jul, [facility] [place] [facility] [address] [facility] [id number] [place] [address]- 1455 Jul, [facility] [place] [facility] [address] [facility] [id number] [place] [address]- 7082 Jun, 2014 [facility] [place] [facility] [address] [facility] [id number] [place] [address]- 5479 Jun, 2014 [facility] [place] [facility] [address] [facility] [id number] [place] [address]- 7198 20 Jun, 2014 [facility] [place] [facility] [address] [facility] [id number] [place] [address]- 9426 20 Jun, 2014 [facility] [place] [facility] [address] [facility] [id number] [place] [address]- 7708 17 Jun, 2014 [facility] [place] [facility] [address] [facility] [id number] [place] [address]- 9634 17 Jun, 2014 [facility] [place] [facility] [address] [facility] [id number] [place] [address]- 4849 16 Jun, 2014 [facility] [place] [facility] [address] [facility] [id number] [place] [address]- 7465 16 Jun, 2014 [facility] [place] [facility] [id number] [place] [address]- 4072 11 Jun, 2014 [facility] [place] [facility] [address] [id number] [place] [address]- 9059 Jun, [facility] [place] [facility] [address] [id number] [place] [address]- 3371 Jun, [facility] [place] [facility] [address] [id number] [place] [address]- 7674 Jun, [facility] [place] [facility] [address] [id number] [place] [address]- 9999 Jun, [facility] [place] [facility] [address] [id number] [place] [address]- 7364 Jun, [facility] [place] [facility] [address] [id number] [place] [address]- 6705 May, [facility] [place] [facility] [address] [id number] [place] [address]- 5519 May, [facility] [place] [facility] [address] [id number] [place] [address]- 9988 May, [facility] [place] [facility] [address] [id number] [place] [address]- 7567 May, [facility] [place] [facility] [address] [id number] [place] [address]- 3731 May, [facility] [place] [facility] [address] [id number] [place] [address]- 7212 May, [facility] [place] [facility] [address] [id number] [place] [address]- 9846 May, [facility] [place] [facility] [address] [id number] [place] [address]- 8057 May, [facility] [place] [facility] [address] [id number] [place] [address]- 4870 Apr, [facility] [place] [facility] [address] [id number] [place] [address]- 9195 Apr, [facility] [place] [facility] [address] [id number] [place] [address]- 5500 Apr, [facility] [place] [facility] [address] [id number] [place] [address]- 4232 Apr, [facility] [place] [facility] [address] [id number] [place] [address]- 2811 Apr, [facility] [place] [facility] [address] [id number] [place] [address]- 3331 Apr, [facility] [place] [facility] [address] [id number] [place] [address]- 3814 15 Apr, 2014 [facility] [place] [facility] [address] [id number] [place] [address]- 6732 15 Apr, 2014 [facility] [place] [facility] [address] [id number] [place] [address]- 9564 Apr, [facility] [place] [facility] [address] [id number] [place] [address]- 1831 Apr, [facility] [place] [facility] [address] [id number] [place] [address]- 2655 Apr, [facility] [place] [facility] [address] [id number] [place] [address] Apr, [facility] [place] [facility] [address] [id number] [place] [address] Mar, [facility] [place] [facility] [address] [id number] [place] [address] Mar, [facility] [place] [facility] [address] [id number] [place] [address] 18 Mar, 2014 [facility] [place] [facility] [address] [id number] [place] [address] 18 Mar, 2014 [facility] [place] [facility] [address] [id number] [place] [address] 17 Mar, 2014 [facility] [place] [facility] [address] [id number] [place] [address] 17 Mar, 2014 [facility] [place] [facility] [address] [id number] [place] [address] Mar, [facility] [place] [facility] [address] [id number] [place] [address] Mar, [facility] [place] [facility] [address] [id number] [place] [address] Feb, [facility] [place] [facility] [address] [id number] [place] [address] Feb, [facility] [place] [facility] [address] [id number] [place] [address] Feb, [facility] [place] [facility] [address] [id number] [place] [address] Feb, [facility] [place] [facility] [address] [id number] [place] [address] Feb, [facility] [place] [facility] [address] [id number] [place] [address] Feb, [facility] [place] [facility] [address] [id number] [place] [address] Feb, [facility] [place] [facility] [address] [id number] [place] [address]- 3085 Feb, [facility] [place] [facility] [address] [id number] [place] [address] 19 Jan, 2014 [facility] [place] [facility] [address] [id number] [place] [address]- 7[address] 19 Jan, 2013 [facility] [place] [facility] [address] [id number] [place] [address]- 7376 17 Sep, 2013 [facility] [place] [facility] [address] [id number] [place] [address] 9834 17 Jan, 2013 [facility] [place] [facility] [address] [id number] [place] [address]- 9077 16 Jan, 2013 [facility] [place] [facility] [address] [id number] [place] [address]- 6333 16 Jan, 2014 [facility] [place] [facility] [address] [id number] [place] [address]- 9489 15 Jan, 2014 [facility] [place] [facility] [address] [id number] [place] [address]- 0890 15 Jan, 2014 [facility] [place] [facility] [address] [id number] [place] [address]- 9826 15 Jan, 2014 [facility] [place] [facility] [address] [id number] [place] [address]- 2398 15 Jan, 2014 [facility] [place] [facility] [address] [id number] [place] [address]- 5126 09 Jan, 2014 [facility] [place] [facility] [address] [id number] [place] [address]- 3181 09 Jan, 2014 [facility] [place] [facility] [address] [id number] [place] [address]- 4152 Dec, [facility] [place] [facility] [address] [id number] [place] [address]- 3517 Dec, [facility] [place] [facility] [address] [id number] [place] [address]- 7661 Dec, [facility] [place] [facility] [address] [id number] [place] [address]- 6541 Dec, [facility] [place] [facility] [address] [id number] [place] [address]- 2108 Nov, [facility] [place] [facility] [address] [id number] [place] [address]- 2247 Nov, [facility] [place] [facility] [address] [id number] [place] [address]- 8673 Nov, [facility] [place] [facility] [address] [id number] [place] [address]- 3199 Nov, [facility] [place] [facility] [address] [id number] [place] [address]- 0628 Oct, [facility] [place] [facility] [address] [id number] [place] [address]- 2760 30 Oct, 2013 [facility] [place] [facility] [address] [id number] [place] [address]- 8929 Oct, [facility] [place] [facility] [address] [id number] [place] [address]- 0701 Oct, [facility] [place] [facility] [address] [id number] [place] [address]- 2963 Oct, [facility] [place] [facility] [address] [id number] [place] [address]- 4785 Oct, [facility] [place] [facility] [address] [id number] [place] [address]- 1617 Oct, [facility] [place] [facility] [address] [id number] [place] [address]- 0588 Oct, [facility] [place] [facility] [address] [id number] [place] [address]- 4292 Oct, [facility] [place] [facility] [address] [id number] [place] [address]- 1980 Oct, [facility] [place] [facility] [address] [id number] [place] [address]- 0141 September, [facility] [place] [facility] [address] [id number] [place] [address]- 3311 September, [facility] [place] [facility] [address] [id number] [place] [address]- 2617 September, [facility] [place] [facility] [address] [id number] [place] [address]- 1546 September, [facility] [place] [facility] [address] [id number] [place] [address]- 2092 September, [facility] [place] [facility] [address] [id number] [place] [address]- 7978 September, [facility] [place] [facility] [address] [id number] [place] [address]- 7121 September, [facility] [place] [facility] [address] [id number] [place] [address]- 0800 September, [facility] [place] [facility] [address] [id number] [place] [address]- 3646 Aug, [facility] [place] [facility] [address] [id number] [place] [address]- 5436 Aug, [facility] [place] [facility] [address] [id number] [place] [address]- 9495 Aug, [facility] [place] [facility] [address] [id number] [place] [address]- 2368 Aug, [facility] [place] [facility] [address] [id number] [place] [address]- 3729 Aug, [facility] [place] [facility] [address] [id number] [place] [address]- 9943 Aug, [facility] [place] [facility] [address] [id number] [place] [address]- 4375 Aug, [facility] [place] [facility] [address] [id number] [place] [address]- 4119 Aug, [facility] [place] [facility] [address] [id number] [place] [address]- 1645 Aug, [facility] [place] [facility] [address] [id number] [place] [address]- 2943 Jul, [facility] [place] [facility] [address] [id number] [place] [address]- 9500 Jul, [facility] [place] [facility] [address] [id number] [place] [address]- 3101 Jul, [facility] [place] [facility] [address] [id number] [place] [address]- 7150 Jul, [facility] [place] [facility] [address] [id number] [place] [address]- 5623 Jul, [facility] [place] [facility] [address] [id number] [place] [address]- 6958 Jul, [facility] [place] [facility] [address] [id number] [place] [address]- 8494 Jul, [facility] [place] [facility] [address] [id number] [place] [address]- 9102 Jul, [facility] [place] [facility] [address] [id number] [place] [address]- 2101 Jul, [facility] [place] [facility] [address] [id number] [place] [address]- 4514 Jul, [facility] [place] [facility] [address] [id number] [place] [address]- 9801 Jul, [facility] [place] [facility] [address] [id number] [place] [address]- 5910 Jul, [facility] [place] [facility] [address] [id number] [place] [address]- 1183 Jul, [facility] [place] [facility] [address] [id number] [place] [address]- 9459 Jul, [facility] [place] [facility] [address] [id number] [place] [address]- 4033 Jul, [facility] [place] [facility] [address] [id number] [place] [address]- 5714 Jul, [facility] [place] [facility] [address] [id number] [place] [address]- 7851 Jul, [facility] [place] [facility] [address] [id number] [place] [address]- 9730 Jul, [facility] [place] [facility] [address] [id number] [place] [address]- 7667 Jul, [facility] [place] [facility] [address] [id number] [place] [address]- 0284 Jul, [facility] [place] [facility] [address] [id number] [place] [address]- 5902 Jun, [facility] [place] [facility] [address] [id number] [place] [address]- 9996 Jun, [facility] [place] [facility] [address] [id number] [place] [address]- 2186 Jun, [facility] [place] [facility] [address] [id number] [place] [address]- 9476 Jun, [facility] [place] [facility] [address] [id number] [place] [address]- 5799 Jun, [facility] [place] [facility] [address] [id number] [place] [address]- 1303 Jun, [facility] [place] [facility] [address] [id number] [place] [address]- 3277 Jun, [facility] [place] [facility] [address] [facility] [id number] [place] [address]- 6988 Jun, [facility] [place] [facility] [address] [id number] [place] [address]- 7824 Jun, [facility] [place] [facility] [address] [id number] [place] [address]- 6822 Jun, [facility] [place] [facility] [address] [facility] [id number] [place] [address]- 9280 Jun, [facility] [place] [facility] [address] [facility] [id number] [place] [address]- 9082 Jun, [facility] [place] [facility] [address] [id number], [place] [address]- 2734 May, [facility] [place] [facility] [address] [id number] [place] [address]- 2074 May, [facility] [place] [facility] [address] [id number] [place] [address]- 7306 May, [facility] [place] [facility] [address] [id number] [place] [address]- 7604 May, [facility] [place] [facility] [address] [facility] [id number][place] [address]- 2279 May, [facility] [address] [id number] [place] [address]- 7942 May, [facility] [place] [facility] [address] [id number] [place] [address]- 6389 May, [facility] [address] [id number] [place] [address]- 9236 May, [facility] [place] [facility] [address] [id number] [place] [address]- 3598 May, [facility] [address] [id number] [place] [address]- 3948 May, [facility] [place] [facility] [address] [id number] [place] [address]- 3276 May, [facility] [address] [id number] [place] [address]- 3920 May, [facility] [place] [facility] [address] [id number] [place] [address]- 0021 May, [facility] [address] [id number] [place] [address]- 9575 May, [facility] [address] [id number] [place] [address]- 0677 Apr, [facility] [place] [facility] [address] [id number] [place] [address]- 8129 27 Apr, 2013 [facility] [place] [facility] [address] [id number] [place] [address]- 6892 17 Apr, 2013 [facility] [place] [facility] [address] [id number] [place] [address]- 2948 17 Apr, 2013 [facility] [place] [facility] [address] [id number] [place] [address]6 16 Apr, 2013 [facility] [place] [facility] [address] [id number] [place] 16 Apr, 2013 [facility] [place] [facility] [address] [id number] [place] [address]- 3500 Apr, [facility] [address] [id number] [place] [address]- 5639 Apr, [facility] [place] [facility] [address] [id number] [place] [address]- 1330 Apr, [facility] [place] [facility] [address] [id number] [place] [address]- 4830 Apr, [facility] [place] [facility] [address] [id number] [place] [address]- 3519 Apr, [facility] [place] [facility] [address] [id number] [place] [address]- 9149 Apr, [facility] [place] [facility] [address] [id number] [place] [address]- 0745 Mar, [facility] [place] [facility] [address] [id number] [place] [address]- 8570 Mar, [facility] [address] [id number] [place] [address]- 9844 Mar, [facility] [place] [facility] [address] [id number] [place] [address]- 3710 Mar, [facility] [place] [facility] [address] [id number] [place] [address]- 2375 Mar, [facility] [place] [facility] [address] [id number] [place] [address]- 6610 Mar, [facility] [place] [facility] [address] [id number] [place] [address]- 2192 Mar, [facility] [place] [facility] [address] [id number] [place] [address]- 2830 Mar, [facility] [place] [facility] [address] [id number] [place] [address]- 4065 Mar, [facility] [place] [facility] [address] [id number] [place] [address]- 3527 Mar, [facility] [address] [id number] [place] [address]- 7863 Mar, [facility] [address] [id number] [place] [address]- 3580 Mar, [facility] [address] [id number] [place] [address]- 5929 Feb, [facility] [address] [id number] [place] [address]- 6441 Feb, [facility] [address] [id number] [id number] Feb, [facility] [address] [id number] [place] [address] Feb, [facility] [address] [id number] [place] [address]- 4729 Feb, [facility] [address] [id number], [place] [address]- 2184 Feb, [facility] [place] [facility] [address] [id number] [place] [address]- 6179 Feb, [facility] [address] [id number][place] [address]- 5086 Feb, [facility] [place] [facility] [address] [id number] 2606 Feb, [facility] [place] [facility] [address] [id number], [place] [address]- 3079 Feb, [facility] [place] [facility] [address] [id number][place] [address]- 0460 Feb, [facility] [place] [facility] [address] [id number][place] [address]- 4271 Feb, [facility] [place] [facility] [address] [id number], [place] [address]- 1379 Feb, [facility] [place] [facility] [address] [id number], [place] [address]- 6116 Jan, [facility] [address] [id number] [place] [id number] Jan, [facility] [address] [id number] [place] [address] Jan, [facility] [address] [id number] [place] [id number] Jan, [facility] [address] [id number] [place] [address] Jan, [facility] [address] [facility] [id number][place] [address]- 8635 Jan, [facility] [address] [id number] [place] [id number] Jan, [facility] [address] [id number], [place] [address]- 9084 Dec, [facility] [address]00565100[place], [place] [address]- 1735 Dec, [facility] [address] [facility] [id number][place] [address]- 6878 Dec, [facility] [address] [id number] [place] [id number] Dec, [facility] [address] [id number] [place] [address] Dec, [facility] [address] [id number] [place] [address] Dec, [facility] [address] [facility] [id number], [place] [address]- 1533 Dec, [facility] [place] [facility] [address] [facility] [id number][place] [address]- 4384 Dec, [facility] [address] [id number] [place] [id number] Dec, [facility] [place] [facility] [address] [id number], [place] [address]- 7244 Dec, [facility] [address]00565100[place], [place] [address]- 2546 Nov, [facility] [place] [facility] [address] [id number], [place] [address]- 2976 Nov, [facility] [address] [facility] [id number], [place] [address]- 4276 Nov, [facility] [address] [id number] [place] [id number] Nov, [facility] [address] [id number] [place] [address] Oct, [facility] [address] [id number] [place] [id number] Oct, [facility] [place] [facility] [address] [facility] [id number] [place] [address]- 6486 Oct, [facility] [place] [facility] [address] [id number], [place] [address]- 3836 Oct, [facility] [place] [facility] [address] [facility] [id number], [place] [address]- 8563 Oct, [facility] [address] [id number][place] [address] Oct, [facility] [place] [facility] [address]00565100[place], [place] [address]- 7996 Oct, [facility] [address] [id number][place] [address] Oct, [facility] [address] [id number][place] [address] September, [facility] [place] [facility] [address] [facility] [id number], [place] [address]- 2546 September, [facility] [address] [id number][place] [id number] September, [facility] [place] [facility] [address] [facility] [id number], [place] [address]- 3786 September, [facility] [place] [facility] [address] [facility] [id number], [place] [address]- 2076 September, [facility] [place] [facility] [address] [facility] [id number], [place] [address]- 2446 September, [facility] [address] [facility] [id number] [place] [id number] September, [facility] [place] [facility] [address] [facility] [id number] [place] [address]- 7206 September, [facility] [address] [facility] [id number] [place] [address]- 8786 September, [facility] [place] [facility] [address] [facility] [id number] [place] [address]- 5914 Aug, [facility] [address] [id number] [place] [id number] Aug, [facility] [address] [facility] [id number] [place] [id number] Aug, [facility] [address] [id number] [place] [address]- 7136 Aug, [facility] [address] [facility] [id number][place] [address]- 9096 Aug, [facility] [address] [facility] [id number] [place] [id number] Aug, [facility] [address] [facility] [id number] [place] [id number] Aug, [facility] [address] [facility] [id number], [place] [address]- 7989 Aug, [facility] [place] [facility] [address] [facility] [id number][place] [address]- 6276 Aug, [facility] [place] [facility] [address] [facility] [id number][place] [address]- 1961 Jul, [facility] [address] [facility] [id number] [place] [id number] Jul, [facility] [place] [facility] [address] [facility] [id number] [place] [address]- 2546 Jul, [facility] [place] [facility] [address] [facility] [id number][place] [address]- 9228 Jul, [facility] [address] [id number], [place] [address]- 9076 Jul, [facility] [address] [facility] [id number] [place] [address]- 2546 08 Jul, 2012 [facility] [address] [facility] [id number], [place] [address]- 9446 Jul, [facility] [address] [facility] [id number][place] [address]- 2546 Jul, [facility] [address] [id number][place] [id number] Jul, [facility] [address] [facility] [id number][place] [id number] Jun, [facility] [address] [id number], [place] [address]- 6646 Jun, [facility] [id number][place] [id number] Jun, [facility] [address] [id number], [place] [address]- 4426 Jun, [facility] [address]00565100[place], [place] [address]- 8726 May, [facility] [address]00565100[place], [place] [address]- 8460 May, [facility] [id number][place] [id number] May, [facility] [address] [facility] [id number][place] [id number] May, [facility] [address] [id number], [place] [address]- 9166 18 May, 2012 [facility] [address] [facility] [id number][place] [id number] 14 May, 2012 [facility] [place] [facility] [address] [facility] [id number], [place] [address]- 2756 May, [facility] [place] [facility] [address]00565100[place], [place] [address]- 3926 May, [facility] [address] [facility] [id number] [place] [id number] Apr, [facility] [address] [facility] [id number][place] [id number] Apr, [facility] [place] [facility] [address] [facility] [id number][place] [address] Apr, [facility] [place] [facility] [address] [facility] [id number][place] [address] Apr, [facility] [place] [facility] [address] [facility] [id number][place] [address] Apr, [facility] [place] [facility] [address] [facility] [id number], [place] [address] Apr, [facility] [address] [id number] [id number] Apr, [facility] [place] [facility] [address] [facility] [id number][place] [address] Apr, [facility] [place] [facility] [address] [facility] [id number], [place] [address] Apr, [facility] [place] [facility] [address] [facility] [id number], [place] [address] Apr, [facility] [address] [facility] [id number][place] [id number] Apr, [facility] [place] [facility] [address] [facility] [id number], [place] [address] Apr, [facility] [place] [facility] [address] [facility] [id number], [place] [address] Apr, [facility] [place] [facility] [address] [facility] [id number], [place] [address] Apr, [facility] [place] [facility] [address] [facility] [id number][place] [address] Mar, [facility] [place] [facility] [address] [facility] [id number], [place] [address] Mar, [facility] [place] [facility] [address] [id number], [place] [address] Mar, [facility] [place] [facility] [address] [facility] [id number], [place] [address] Mar, [facility] [address] [id number], [place] [id number] Mar, [facility] [place] [facility] [address] [id number], [place] [address] Mar, [facility] [address] [id number][place] [id number] Mar, [facility] [place] [facility] [address] [id number], [place] [address] Mar, [facility] [address] [facility] [id number][place] [id number] Feb, [facility] [place] [facility] [address] [facility] [id number], [place] [address] Feb, [facility] [place] [facility] [address] [facility] [id number][place] [address] Feb, [facility] [place] [facility] [address] [facility] [id number][place] [address] Feb, [facility] [place] [facility] [address] [facility] [id number][place] [address] Jan, [facility] [address] [facility] [id number][place] [id number] Jan, [facility] [place] [facility] [address] [id number], [place] [address] 13 Jan, 2012 [facility] [place] [facility] [address] [facility] [id number][place] [address] 10 Jan, 2012 [facility] [place] [facility] [address] [facility] [id number][place] [address] 05 Jan, 2012 [facility] [address] [id number][place] [id number] Jan, [facility] [place] [facility] [address] [id number] [place] [address] Dec, [facility] [address] [facility] [id number] [place] [id number] Dec, [facility] [place] [facility] [address] [id number] [place] [address] 2546 Dec, [facility] [place] [facility] [address] [facility] [id number] [place] [address] Dec, [facility] [place] [facility] [address] [id number] [place] [address] Nov, [facility] [place] [facility] [address] [facility] [id number] [place] [address]006 Nov, [facility] [place] [facility] [address] [facility] [id number] [place] [address] Nov, [facility] [id number][place] [id number] Nov, [facility] [place] [facility] [address] [facility] [id number] [place] [address] Nov, [facility] [address] [facility] [id number] [place] [id number] Nov, [facility] [place] [facility] [address] [facility] [id number] [place] [address]46 Nov, [facility] [place] [facility] [address] [facility] [id number] [place] [address]- [address]46 Nov, [facility] [place] [facility] [address] [facility] [id number] [place] [address]46 Nov, [facility] [place] [facility] [address] [facility] [id number] [place] [address] Oct, [facility] [place] [facility] [address] [facility] [id number] [place] [address]46 Oct, [facility] [address] [id number] [place] [id number] Oct, [facility] [address] [facility] [id number] [place] [id number] Oct, [facility] [address] [id number] [place] [id number] Oct, [facility] [place] [facility] [address] [id number] [place] [address]96 Oct, [facility] [place] [facility] [address] [facility] [id number] [place] [address]662 Oct, [facility] [place] [facility] [address] [id number] [place] [address] Oct, [facility] [place] [facility] [address] [id number] [place] [address] September, [facility] [place] [facility] [address] [facility] [id number] [place] [address]385 September, [facility] [place] [facility] [address] [id number] [place] [address] September, [facility] [place] [facility] [address] [facility] [id number] [place] [address] Aug, [facility] [place] [facility] [address] [id number] [place] [address] Aug, [facility] [facility] [address] [facility] [id number] [place] [address] Aug, [facility] [facility] [address] [id number] [address] Aug, [facility] [place] [facility] [address] [facility] [id number][place] [address] Aug, [facility] [address] [id number] [place] [id number] Jul, [facility] [facility] [address] [facility] [id number][place] [address] Jul, [facility] [place] [facility] [address] [facility] [id number] [place] [address] Jun, [facility] [place] [facility] [address] [facility] [id number] [place] [address] 22 Jun, 2011 [facility] [address] [id number] [place] [address] 13 Jun, 2011 [facility] [address] [id number] [place] [address] 10 Jun, 2011 [facility] [address] [id number] [place] [address] 02 Jun, 2011 [facility] [address] [id number] [place] [address] May, [facility] [address] [id number] [place] [address] May, [facility] [address] [id number] [place] [address] 17 May, 2011 [facility] [address] [id number] [place] [address] May, [facility] [address] [id number] [place] [address] 16 May, 2011 [facility] [address] [id number] [place] [address] May, [facility] [address] [id number] [place] [address] May, [facility] [address] [id number] [place] [address] May, [facility] [address] [id number] [place] [address] Apr, [facility] [facility] [address] [id number] [place] [address] Apr, [facility] [address] [id number] [place] [address] 16 Apr, 2011 [facility] [address] [id number] [place] [address] Apr, [facility] [place] [facility] [address] [id number] [place] [address] 13 Apr, 2011 [facility] [place] [facility] [address] [id number] [place] [address] 05 Apr, 2011 [facility] [facility] [address] [id number] [place] [address] Mar, [facility] [place] [facility] [address] [id number] [place] [address] Mar, [facility] [facility] [address] [id number] [place] [address] 15 Mar, 2011 [facility] [facility] [address] [id number] [place] [address] 14 Mar, 2011 [facility] [place] [facility] [address] [id number] [place] [address] Mar, [facility] [facility] [address] [id number] [place] [address] Mar, [facility] [facility] [address] [id number] [place] [address] Mar, [facility] [facility] [address] [id number] [place] [address] Mar, [facility] [address] [id number] [place] [address] Feb, [facility] [address] [id number], [place] [address] 16 Jun, 2010 [facility] [facility] [address] [id number] [place] [address] May, [facility] [facility] [address] [id number][place] [address] May, [facility] [facility] [address] [id number] [place] [address] Apr, [facility] [place] [facility] [address] [id number] [place] [address] 13 Apr, 2010 [facility] [address] [id number] [place] [address] Apr, [facility] [address] [id number] [place] [address] 24 Mar, 2010 [facility] [facility] [address] [id number] [place] [address] 15 Mar, 2010 [facility] [facility] [address] [id number] [place] [address] 08 Mar, 2010 [facility] [address] [id number] [place] [address] Mar, [facility] [address] [id number] [place] [address] Mar, [facility] [address] [id number] [place] [address] Feb, [facility] [address] [id number] [place] [address] Feb, [facility] [address] [id number] [place] [address] Oct, [facility] [facility] [address] [facility] [id number] [place] [address] September, [facility] [address] [id number] [place] [address] Apr, [facility] [address] [id number] [place] [address] Apr, [facility] [facility] [address] [id number] [place] [address]- [address] 30 Mar, 2009 [facility] [address] [id number] [place] [address] Mar, [facility] [address] [id number], [place] [address] Mar, [facility] [address] [facility] [id number], [place] [address] Mar, [facility] [address] [id number], [place] [address] Mar, [facility] [address] [id number], [place] [address] Feb, [facility] [address] [id number], [place] [address] Feb, [facility] [address] [id number], [place] [address] Jan, [facility] [id number], [place] [address] Oct, IMMUNIZATIONS No Known Immunizations SOCIAL HISTORY Never Assessed REASON FOR VISIT 3 mo f/u PLAN OF CARE Activity Details Follow Up 3 Months Reason: VITAL SIGNS MEDICATIONS Unknown Medications RESULTS No Results PROCEDURES Procedure Date Ordered Result Body Site DEBRIDE NAIL, 1-5 Feb 24, 2017 [facility] VISIT ESTABLISHED PATIENT Feb 24, 2017 INSTRUCTIONS MEDICATIONS ADMINISTERED No Known Medications MEDICAL [...]
--- OUTSIDE RECORDS SUMMARY | 2017-11-22 09:40 | XMS REPORT ---
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 Name Role Phone JENNIFER IGLESIAS Unavailable PROBLEMS Type Condition ICD9-CM Code CIB69-QH Code Onset Dates Condition Status SNOMED Code Problem Depressive disorder, not elsewhere classified F32.9 Active 37458108 Problem DM neuro manif type II E11.40 Active 83279215 Problem Diabetes mellitus, controlled E11.9 Active 757557492 Problem Anxiety disorder, unspecified F41.9 Active 925853860 Problem Abscess, ear canal H60.00 Active 85831004 Problem Type 2 diabetes mellitus without complications E11.9 Active 788847892 Problem Encounter for Zostavax administration Z23 Active 752011776 Problem Morbid obesity due to excess calories E66.01 Active 606827184 Problem Other infective otitis externa of left ear H60.392 Active 21586696 Problem Contusion of right foot, initial encounter S90.31XA Active 19328429 Problem DM neuro manif type II E11.49 Active 82493336 Problem High risk medication use Z79.899 Active [id number] Problem Hyperlipidemia, unspecified hyperlipidemia type E78.5 Active 82742726 Problem Breast cancer screening Z12.31 Active 507149253 Problem Personal history of nicotine dependence Z87.891 Active 78313153 Problem Medicare annual wellness visit, initial Z00.00 Active 251244497 Problem Strep throat J02.0 Active 99476410 Problem Other microscopic hematuria R31.29 Active 782177042 Problem Other hammer toe(s) (acquired), left foot M20.42 Active 46073853 Problem Mild persistent asthma without complication J45.30 Active 191170063 Problem Essential hypertension I10 Active 72673661 Problem Pain in right ankle and joints of right foot M25.571 Active 973715646 Problem Pain in left ankle and joints of left foot M25.572 Active 404566363 Problem BMI 40.0-44.9, adult Z68.41 Active 001684865 Problem Other chronic pain G89.29 Active 55244308 Problem Gynecologic exam normal Z01.419 Active 101373088 Problem Breast cancer screening Z12.39 Active 779206306 Problem Other hammer toe(s) (acquired), right foot M20.41 Active 795576583 Problem Osteopenia M85.80 Active 254575250 Problem Anxiety associated with depression F41.8 Active 979900366 Problem Type 2 diabetes mellitus with diabetic neuropathy, without long-term current use of insulin E11.40 Active 96208499 Problem Creatinine elevation R79.89 Active 291241014 Problem Lobar pneumonia J18.1 Active 984488518 ALLERGIES No Information ENCOUNTERS Encounter Location Date Diagnosis [facility] [id number] [id number] Oct, DM neuro manif type II E11.49 [facility] [address] [id number] [address] September, DM neuro manif type II E11.49 and BMI 40.0-44.9, adult Z68.41 [facility] [address] [id number][place] [address] Aug, Anxiety disorder, unspecified F41.9 [place] [address] [place] [address]- 6713 Aug, [place] [id number] [place] [address] 91561- 2435 Aug, Onychocryptosis L60.0 and DM neuro manif type II E11.40 [facility] [address] [id number], [place] [address]335[address] Aug, 2018 Acute bronchitis due to other specified organisms J20.8 and BMI 40.0-44.9, adult Z68.41 [facility] [place] [id number] [place] [address]31- 3963 Aug, [facility] [address] [id number], [place] [address]004[address] Aug, [place] [address] [facility] [id number], [place] [address] Aug, Onychocryptosis L60.0 [facility] [address] [address] [id number], [place] [address] Aug, [facility] [address] [id number], [place] [address]35[address] Jul, Strep throat J02.0 ; Other microscopic hematuria R31.29 and BMI 40.0-44.9, adult Z68.41 [facility] [address] [facility] [id number], [place] [address]2468 Jul, [facility] [address] [id number], [place] [address]8836 Jun, [facility] [address] [place] [address] AVE [id number], [place] [id number] Jun, [facility] [address] [place] [address] [id number], [place] [address]100[address] Jun, Type 2 diabetes mellitus without complications E11.9 ; BMI 40.0- 44.9, adult Z68.41 ; Pain in right ankle and joints of right foot M25.571 ; Pain in left ankle and joints of left foot M25.572 and Other chronic pain G89.29 [place] [address] [facility] [id number], [place] [address] May, Onychomycosis B35.1 ; Onychocryptosis L60.0 and DM neuro manif type II E11.40 [facility] [address] [id number], [place] 628484063 May, [facility] [address] [id number], [place] [address]33780675 May, [facility] [address] [id number], [place] 555[address]204 Apr, Medicare annual wellness visit, initial Z00.00 ; Personal history of nicotine dependence Z87.891 ; Breast cancer screening Z12.31 and BMI 40.0- 44.9, adult Z68.[address] [facility] [address] [id number] [place] [address] Apr, Anxiety disorder, unspecified F41.[address] [facility] [address] [id number] [place] [address] Feb, [facility] [place] [address] [facility] [id number], [place] [address] Feb, Onychomycosis B35.1 and DM neuro manif type II E11.[address] [facility] [address] [id number] [place] 9[address]17 Feb, Type 2 diabetes mellitus without complications E11.9 and Encounter for immunization Z23 [facility] [address] [id number], [place] 448367864 Jan, Anxiety disorder, unspecified F41.9 [facility] [address] [id number], [place] 877240230 Dec, [facility] [address] [facility] [id number], [place] [address] Nov, Right foot sprain, initial encounter S93.601A ; Onychomycosis B35.1 and DM neuro manif type II E11.[address] [facility] [address] [id number], [place] 940296599 Nov, Type 2 diabetes mellitus without complications E11.[address] [facility] [address] [id number] [place] [address] Nov, [facility] [address] [id number] [place] [address] Nov, Type 2 diabetes mellitus without complications E11.[address] [facility] [address] [id number] [place] [id number] Nov, [facility] [address] [id number], [place] 846180492 Nov, [facility] [address] [id number], [place] 927409095 Nov, Type 2 diabetes mellitus without complications E11.9 ; Contusion of right foot, initial encounter S90.31XA and High risk medication use Z79.899 [facility] [address] [id number], [place] 084349467 Oct, High risk medication use Z79.899 [facility] [address] [id number], [place] [id number] Oct, Anxiety disorder, unspecified F41.9 [facility] [address] [id number], [place] 467[address]892 September, Type 2 diabetes mellitus with diabetic neuropathy, without long- term current use of insulin E11.40 [facility] [place] [address] [facility] [id number] [place] [address] Aug, Onychomycosis B35.1 ; DM neuro manif type II E11.40 and Other hammer toe(s) (acquired), right foot M20.41 [facility] [address] [id number], [place] 457873778 Aug, Type 2 diabetes mellitus without complications E11.9 ; Morbid obesity due to excess calories E66.01 and Encounter for immunization Z23 [facility] [address] [facility] [address] [id number], [place] [address]185[address]308 Aug, [facility] [address] [id number], [place] 763180706 Aug, Anxiety associated with depression F41.8 [facility] [address] [id number], [place] 435[address]356 Jul, Anxiety disorder, unspecified F41.9 [facility] [address] [id number], [place] 657521003 Jun, Anxiety associated with depression F41.8 [facility] [address] [id number], [place] 863992588 Jun, Lobar pneumonia J18.1 [facility] [address] [id number], [place] 291194023 Jun, Pneumonia of left lower lobe due to infectious organism J18.1 [facility] [address] [id number], [place] 145953825 Jun, [facility] [address] [id number], [place] [id number] Jun, [facility] [place] [address]00565100[place] 17988[address]- [address] May, Onychomycosis B35.1 ; Other hammer toe(s) (acquired), right foot M20.41 ; Other hammer toe(s) (acquired), left foot M20.42 and DM neuro manif type II E11.40 [facility] [address] [id number], [place] [id number] May, [facility] [address] [id number], [place] 115954086 May, [facility] [address] [place] [address] [id number], [place] 133254764 May, [facility] [address] [place] [address] [id number], [place] [address] May, [facility] [address] [id number], [place] 222222655 May, Gynecologic exam normal Z01.419 ; Breast cancer screening Z12.39 and Creatinine elevation R79.89 [facility] [address] [id number], [place] 441501384 Apr, [facility] [address] [id number], [place] 938355366 Apr, Creatinine elevation R79.89 [facility] [address] [address] [id number], [place] [id number] Apr, DM neuro manif type II E11.40 and Osteopenia M85.80 [facility] [place] [address]00565100[place], [place] [address]- [address] Feb, Onychomycosis B35.1 and DM neuro manif type II E11.[address] [id number], [place] 162114743 Feb, [address] [id number], [place] 149114674 Jan, Mild persistent asthma without complication J45.30 ; Anxiety disorder, unspecified F41.9 and Essential hypertension I10 [place] [address] [place] [address] 22024- 3062 Jan, Anxiety disorder, unspecified F41.9 and Depressive disorder , not elsewhere classified F32.9 [place] [address] [place] [id number] [place] [address] 94737- 0610 Dec, Anxiety disorder, unspecified F41.9 and Depressive disorder , not elsewhere classified F32.9 [facility] [id number] [place] [address] 88243 -0065 Dec, Left elbow pain M25.522 [facility] [place] [address] [place] [id number] [place] [address] 65054- 7822 Dec, Anxiety disorder, unspecified F41.9 and Depressive disorder , not elsewhere classified F32.9 [place] [address] [place] [address] 15790- 2182 Nov, Anxiety disorder, unspecified F41.9 and Depressive disorder , not elsewhere classified F32.9 [place] [address] [place] [address] 83011- 3656 Nov, Anxiety disorder, unspecified F41.9 and Depressive disorder , not elsewhere classified F32.[address] [id number], [place] 535049757 Oct, Diabetes mellitus, controlled E11.9 ; Hyperlipidemia, unspecified hyperlipidemia type E78.5 ; Essential hypertension I10 and Mild persistent asthma without complication J45.30 [place] [address] [place] [id number] [place] [address] 34239- 2277 Oct, Anxiety disorder, unspecified F41.9 and Depressive disorder , not elsewhere classified F32.9 [place] [address]65100[place], [place] [address]- 8830 September, Anxiety disorder, unspecified F41.9 and Depressive disorder , not elsewhere classified F32.9 [place] [address]65100[place], [place] [address]- 0945 Aug, Onychomycosis B35.1 and DM neuro manif type II E11.[address] [id number], [place] [id number] Aug, [place] [address] [place] [address] 86025- 0919 Aug, Anxiety disorder, unspecified F41.9 and Depressive disorder , not elsewhere classified F32.[address] [id number], [place] 785347148 Jul, Type 2 diabetes mellitus without complications E11.9 ; Encounter for Zostavax administration Z23 ; Morbid obesity due to excess calories E66.01 and Other infective otitis externa of left ear H60.[address] [place] [address] [id number], [place] 127579830 Jul, [place] [address]00565100[place], [place] [address]- 2120 Jul, [place] [address]65100[place], [place] [address]- 1273 Jul, [place] [address] [id number], [place] [id number] Jun, [place] [address] [place] [address] 03990- 3912 Jun, Anxiety disorder, unspecified F41.9 and Depressive disorder , not elsewhere classified F32.[address] [place] [address] [id number], [place] 098992159 Jun, Abscess, ear canal H60.00 [facility] [address] [id number], [place] 559311620 Jun, Abscess, ear canal H60.[address] [id number], [place] [id number] Jun, [facility] [place] [address] [place] [id number]- 2516 May, Anxiety disorder, unspecified F41.9 and Depressive disorder , not elsewhere classified F32.[address] [id number], [place] 862608610 Apr, Diabetes mellitus, controlled E11.9 and Breast cancer screening Z12.[address] [id number], [place] 902249223 Apr, Diabetes mellitus, controlled E11.9 ; Breast cancer screening Z12.39 and Morbid obesity due to excess calories E66.01 [facility] [place] [address] [place] [address] 67392- 2665 Apr, Anxiety disorder, unspecified F41.9 and Depressive disorder , not elsewhere classified F32.[address] [id number], [place] [id number] Mar, [facility] [place] [address] [place] [id number] [place] [address] 96425- 4918 Mar, Encounter for immunization Z23 [facility] [place] [address] [place] [address] 88092- 9338 Mar, Anxiety disorder, unspecified F41.9 and Depressive disorder , not elsewhere classified F32.9 [facility] [place] [address] [place] [address] 41198- 7728 Feb, Foot ulcer, right L97.519 and DM neuro manif type II E11.40 [facility] [place] [address] [place] [id number] [place] [address] 99281- 5993 Jan, Anxiety disorder, unspecified 300.00 and Depressive disorder , not elsewhere classified 311 [facility] [address] [facility] [id number][place] 537187944 Jan, [facility] [place] [address]65100[place], [place] [address]- [address]35 Jan, Cellulitis of right foot 682.7 ; Onychomycosis 110.1 ; Neuropathy 355.9 and Foot ulcer 707.15 [place] [address]65100[place], [place] [address]- 6974 Jan, Anxiety disorder, unspecified 300.00 and Depressive disorder , not elsewhere classified [address] [id number], [place] 524002230 Jan, Anxiety disorder, unspecified 300.00 ; Shortness of breath 786.05 and Coronary atherosclerosis of unspecified type of vessel, tangirnaq or graft 414.00 [place] [address] [place] [id number], [place] [address]- 6674 Dec, Anxiety disorder, unspecified 300.00 and Depressive disorder , not elsewhere classified 311 [place] [address]65100[place], [place] [address]- 0215 Dec, Anxiety disorder, unspecified 300.00 and Depressive disorder , not elsewhere classified [address] [id number], [place] [id number] Nov, [place] [address] [place] [id number], [place] [address]- 8309 Nov, Anxiety disorder, unspecified 300.00 and Depressive disorder , not elsewhere classified [address] [id number], [place] 645179702 Nov, Shortness of breath 786.05 and Morbid obesity 278.01 [place] [address] [place] [id number], [place] 92661247- 5275 Nov, Anxiety disorder, unspecified 300.00 and Depressive disorder , not elsewhere classified [address] [id number], [place] 965997941 Oct, Asthma, moderate persistent 493.90 [facility] [place] [address] [place] [address] [id number] 793352- 6302 Oct, Anxiety disorder, unspecified 300.00 and Depressive disorder , not elsewhere classified 311 [facility] [address] [place] [id number], [place] [address]- 5986 September, Hammertoe 735.4 ; Onychomycosis 110.1 and Type I diabetes mellitus with neurological manifestations 250.61 [facility] [address] [facility] [id number], [place] 727164587 September, [facility] [place] [address] [place] [address] 18708- 3126 September, Anxiety disorder, unspecified 300.00 and Depressive disorder , not elsewhere classified [address] [facility] [address] [facility] [id number], [place] [id number] September, Diabetes type 2, controlled 250.00 ; Asthma, mild persistent 493.90 and Dermatitis, contact 692.9 [facility] [address] [facility] [id number], [place] 115920175 September, [facility] [place] [address]65100[place], [place] [address]- 6697 September, Anxiety state, unspecified 300.00 and Depressive disorder, not elsewhere classified 311 [facility] [address] [place] [address] [id number], [place] [address]- 6061 Aug, [facility] [place] [address]65100[place], [place] 58016403- 3980 Aug, [facility] [address]65100[place], [place] 68364621- 3555 Jul, [facility] [address]65100[place], [place] 4654[place]- 5468 Jul, [facility] [address] [place] [address] [id number], [place] 60230504- 6649 Jul, [facility] [address] [place] [id number] [place] [address]- 7873 Jul, 2014 [facility] [place] [facility] [address] [id number] [place] [address]- 2158 Jul, 2014 [facility] [place] [facility] [address] [id number] [place] [address]- 2780 Jul, 2014 [facility] [place] [facility] [address] [id number] [place] [address]- 9436 Jul, 2014 [facility] [place] [facility] [address] [id number] [place] [address]- 9187 Jul, [facility] [place] [facility] [address] [id number] [place] [address]- 5801 Jun, 2014 [facility] [place] [facility] [address] [facility] [id number] [place] [address]- 4542 Jun, 2014 [facility] [place] [facility] [address] [facility] [id number] [place] [address]- 2521 Jun, 2014 [facility] [place] [facility] [address] [facility] [id number] [place] [address]- 6997 Jun, 2014 [facility] [place] [facility] [address] [facility] [id number] [place] [address]- 2632 17 Jun, 2014 [facility] [place] [facility] [address] [facility] [id number] [place] [address]- 7103 17 Jun, 2014 [facility] [place] [facility] [address] [facility] [id number] [place] [address]- 0035 16 Jun, 2014 [facility] [place] [facility] [address] [facility] [id number] [place] [address]- 0889 16 Jun, 2014 [facility] [place] [facility] [address] [facility] [id number] [place] [address]- 1471 Jun, 2014 [facility] [place] [facility] [address] [facility] [id number] [place] [address]- 2042 11 Jun, 2014 [facility] [place] [facility] [address] [facility] [id number], [place] [address]- 2546 Jun, [facility] [place] [facility] [address] [id number] [place] [address]- 7882 Jun, [facility] [place] [facility] [address] [id number] [place] [address]- 8513 Jun, [facility] [place] [facility] [address] [id number] [place] [address]- 8193 Jun, [facility] [place] [facility] [address] [id number] [place] [address]- 4540 May, [facility] [place] [facility] [address] [id number] [place] [address]- 0171 May, [facility] [place] [facility] [address] [id number] [place] [address]- 7234 May, [facility] [place] [facility] [address] [id number] [place] [address]- 7249 May, [facility] [place] [facility] [address] [id number] [place] [address]- 4660 May, [facility] [place] [facility] [address] [id number] [place] [address]- 7519 May, [facility] [place] [facility] [address] [facility] [id number] [place] [address]- 4640 May, [facility] [place] [facility] [address] [id number] [place] [address]- 8781 May, [facility] [place] [facility] [address] [id number] [place] [address]- 3595 Apr, [facility] [place] [facility] [address] [id number] [place] [address]- 8325 Apr, [facility] [place] [facility] [address] [id number] [place] [address]- 2791 Apr, [facility] [place] [facility] [address] [id number] [place] [address]- 7020 Apr, [facility] [place] [facility] [address] [id number] [place] [address]- 3870 20 Apr, 2014 [facility] [place] [facility] [address] [id number] [place] [address]- 2676 20 Apr, 2014 [facility] [place] [facility] [address] [id number] [place] [address]- 0796 15 Apr, 2014 [facility] [place] [facility] [address] [id number] [place] [address]- 18[address] 15 Apr, 2014 [facility] [place] [facility] [address] [id number] [place] [address] 10 Apr, 2014 [facility] [place] [facility] [address] [id number] [place] [address] Apr, [facility] [place] [facility] [address] [id number] [place] [address] Apr, [facility] [place] [facility] [address] [id number] [place] [address] Apr, [facility] [place] [facility] [address] [id number] [place] [address] Mar, [facility] [place] [facility] [address] [id number] [place] [address] Mar, [facility] [place] [facility] [address] [id number] [place] [address] 18 Mar, 2014 [facility] [place] [facility] [address] [id number] [place] [address] 18 Mar, 2014 [facility] [place] [facility] [address] [id number] [place] [address] 17 Mar, 2014 [facility] [place] [facility] [address] [id number] [place] [address] 17 Mar, 2014 [facility] [place] [facility] [address] [id number] [place] [address] 12 Mar, 2014 [facility] [place] [facility] [address] [id number] [place] [address] Mar, [facility] [place] [facility] [address] [id number] [place] [address] Feb, [facility] [place] [facility] [address] [id number] [place] [address] Feb, [facility] [place] [facility] [address] [id number] [place] [address] Feb, [facility] [place] [facility] [address] [id number] [place] [address] Feb, [facility] [place] [facility] [address] [id number] [place] [address] Feb, [facility] [place] [facility] [address] [id number] [place] [address] Feb, [facility] [place] [facility] [address] [id number] [place] [address] 44[address] Feb, [facility] [place] [facility] [address] [id number] [place] [address] 2758 Feb, [facility] [place] [facility] [address] [id number] [place] [address] 9141 19 Jan, 2014 [facility] [place] [facility] [address] [id number] [place] [address]- 1272 19 Jan, 2014 [facility] [place] [facility] [address] [id number], [place] [address] 17 Sep, 2013 [facility] [place] [facility] [address] [id number], [place] [address] 9828 17 Sep, 2013 [facility] [place] [facility] [address] [id number] [place] [address]- 8448 16 Sep, 2013 [facility] [place] [facility] [address] [id number], [place] [address] 7471 16 Sep, 2013 [facility] [place] [facility] [address] [id number], [place] [address] 4864 15 Jan, 2013 [facility] [place] [facility] [address] [id number] [place] [address]- 5491 15 Jan, 2013 [facility] [place] [facility] [address] [id number] [place] [address]- 4096 15 Jan, 2014 [facility] [place] [facility] [address] [id number] [place] [address]- 6086 15 Jan, 2014 [facility] [place] [facility] [address] [id number] [place] [address]- 1426 09 Jan, 2014 [facility] [place] [facility] [address] [id number] [place] [address]- 7906 Jan, [facility] [place] [facility] [address] [id number] [place] [address]- 3465 Dec, [facility] [place] [facility] [address] [id number] [place] [address]- 0163 Dec, [facility] [place] [facility] [address] [id number] [place] [address]- 6970 Dec, [facility] [place] [facility] [address] [id number] [place] [address]- 1981 Dec, [facility] [place] [facility] [address] [id number] [place] [address]- 5800 Nov, [facility] [place] [facility] [address] [id number] [place] [address]- 9736 Nov, [facility] [place] [facility] [address] [id number] [place] [address]- 1068 Nov, [facility] [place] [facility] [address] [id number] [place] [address]- 4403 Nov, [facility] [place] [facility] [address] [id number] [place] [address]- 9970 Oct, [facility] [place] [facility] [address] [id number] [place] [address]- 4603 Oct, [facility] [place] [facility] [address] [id number] [place] [address]- 3169 Oct, [facility] [place] [facility] [address] [id number] [place] [address]- 4438 Oct, [facility] [place] [facility] [address] [id number] [place] [address]- 0037 Oct, [facility] [place] [facility] [address] [id number] [place] [address]- 9384 Oct, [facility] [place] [facility] [address] [id number] [place] [address]- 4312 Oct, [facility] [place] [facility] [address] [id number] [place] [address]- 6374 Oct, [facility] [place] [facility] [address] [id number] [place] [address]- 7985 Oct, [facility] [place] [facility] [address] [id number] [place] [address]- 4144 Oct, [facility] [place] [facility] [address] [id number] [place] [address]- 1842 September, [facility] [place] [facility] [address] [id number] [place] [address]- 6615 September, [facility] [place] [facility] [address] [id number] [place] [address]- 0961 September, [facility] [place] [facility] [address] [id number] [place] [address]- 4536 September, [facility] [place] [facility] [address] [id number] [place] [address]- 1474 September, [facility] [place] [facility] [address] [id number] [place] [address]- 9621 September, [facility] [place] [facility] [address] [id number] [place] [address]- 2487 September, [facility] [place] [facility] [address] [id number] [place] [address]- 0272 September, [facility] [place] [facility] [address] [id number] [place] [address]- 5175 Aug, [facility] [place] [facility] [address] [id number] [place] [address]- 0798 Aug, [facility] [place] [facility] [address] [id number] [place] [address]- 2396 Aug, [facility] [place] [facility] [address] [id number] [place] [address]- 1939 Aug, [facility] [place] [facility] [address] [id number] [place] [address]- 7354 Aug, [facility] [place] [facility] [address] [id number] [place] [address]- 6564 Aug, [facility] [place] [facility] [address] [id number] [place] [address]- 1018 Aug, [facility] [place] [facility] [address] [id number] [place] [address]- 2326 Aug, [facility] [place] [facility] [address] [id number] [place] [address]- 2807 Aug, [facility] [place] [facility] [address] [id number] [place] [address]- 8799 Jul, [facility] [place] [facility] [address] [id number] [place] [address]- 8890 Jul, [facility] [place] [facility] [address] [id number] [place] [address]- 8391 Jul, [facility] [place] [facility] [address] [id number] [place] [address]- 1564 Jul, [facility] [place] [facility] [address] [id number] [place] [address]- 7625 Jul, [facility] [place] [facility] [address] [id number] [place] [address]- 0627 Jul, [facility] [place] [facility] [address] [id number] [place] [address]- 7743 Jul, [facility] [place] [facility] [address] [id number] [place] [address]- 8516 24 Jul, 2013 [facility] [place] [facility] [address] [id number] [place] [address]- 4903 18 Jul, 2013 [facility] [place] [facility] [address] [id number] [place] [address]- 5856 18 Jul, 2013 [facility] [place] [facility] [address] [id number] [place] [address]- 7083 17 Jul, 2013 [facility] [place] [facility] [address] [id number] [place] [address]- 3106 Jul, [facility] [place] [facility] [address] [id number] [place] [address]- 2163 Jul, [facility] [place] [facility] [address] [id number] [place] [address]- 9336 Jul, [facility] [place] [facility] [address] [id number] [place] [address]- 1990 Jul, [facility] [place] [facility] [address] [id number] [place] [address]- 9231 Jul, [facility] [place] [facility] [address] [id number] [place] [address]- 4625 Jul, [facility] [place] [facility] [address] [id number] [place] [address]- 8151 Jul, [facility] [place] [facility] [address] [id number] [place] [address]- 3766 Jul, [facility] [place] [facility] [address] [id number] [place] [address]- 0456 Jul, [facility] [place] [facility] [address] [id number] [place] [address]- 6846 Jun, [facility] [place] [facility] [address] [id number] [place] [address]- 8226 Jun, [facility] [place] [facility] [address] [id number] [place] [address]- 4878 Jun, [facility] [place] [facility] [address] [id number] [place] [address]- 6490 Jun, [facility] [place] [facility] [address] [id number] [place] [address]- 9436 Jun, [facility] [place] [facility] [address] [facility] [id number] [place] [address]- 4356 Jun, [facility] [place] [facility] [address] [id number] [place] [address]- 3310 Jun, [facility] [place] [facility] [address] [id number] [place] [address]- 8996 Jun, [facility] [place] [facility] [address] [facility] [id number] [place] [address]- 6777 Jun, [facility] [place] [facility] [address] [facility] [id number] [place] [address]- 8847 Jun, [facility] [place] [facility] [address] [id number] [place] [address]- 8416 Jun, [facility] [place] [facility] [address] [facility] [id number] [place] [address]- 1110 Jun, [facility] [place] [facility] [address] [facility] [id number] [place] [address]- 8093 May, [facility] [place] [facility] [address] [id number] [place] [address]- 5400 May, [facility] [place] [facility] [address] [id number] [place] [address]- 1992 May, [facility] [place] [facility] [address] [id number] [place] [address]- 4110 May, [facility] [place] [facility] [address] [facility] [id number] [place] [address]- 2511 May, [facility] [place] [facility] [address] [facility] [id number] [place] [address]- 5176 May, [facility] [place] [facility] [address] [id number] [place] [address]- 8756 May, [facility] [place] [facility] [address] [id number] [place] [address]- 9476 May, [facility] [place] [facility] [address] [id number] [place] [address]- 1556 May, [facility] [place] [facility] [address] [id number] [place] [address]- 1371 May, [facility] [place] [facility] [address] [id number] [place] [address]- 5145 May, [facility] [place] [facility] [address] [id number] [place] [address]- 4982 May, [facility] [place] [facility] [address] [id number] [place] [address]- 4763 May, [facility] [place] [facility] [address] [id number] [place] [address]- 3461 May, [facility] [place] [facility] [address] [id number] [place] [address]- 0490 Apr, [facility] [place] [facility] [address] [id number] [place] [address]- 3446 Apr, [facility] [place] [facility] [address] [id number] [place] [address]- 5382 Apr, [facility] [place] [facility] [address] [id number] [place] [address]- 5032 17 Apr, 2013 [facility] [place] [facility] [address] [id number] [place] [address]- 4313 16 Apr, 2013 [facility] [place] [facility] [address] [id number] [place] [address]- 9982 16 Apr, 2013 [facility] [place] [facility] [address] [id number] [place] [address]- 3707 12 Apr, 2013 [facility] [place] [facility] [address] [id number] [place] [address]- 8898 Apr, [facility] [place] [facility] [address] [id number] [place] [address]- 3836 Apr, [facility] [place] [facility] [address] [id number] [place] [address]- 6384 Apr, [facility] [place] [facility] [address] [id number] [place] [address]- 9611 Apr, [facility] [place] [facility] [address] [id number] [place] [address]- 6633 Apr, [facility] [place] [facility] [address] [id number] [place] [address]- 6524 Mar, [facility] [place] [facility] [address] [id number] [place] [address]- 2360 Mar, [facility] [place] [facility] [address] [id number] [place] [address]- 5846 Mar, [facility] [place] [facility] [address] [id number], [place] [address]- 3041 Mar, [facility] [place] [facility] [address] [id number], [place] [address]- 3789 Mar, [facility] [place] [facility] [address] [id number], [place] [address]- 7668 Mar, [facility] [place] [facility] [address] [id number], [place] [address]- 0411 Mar, [facility] [place] [facility] [address] [id number], [place] [address]- 6355 Mar, [facility] [place] [facility] [address] [id number], [place] [address]- 4510 Mar, [facility] [place] [facility] [address] [id number], [place] [address]- 7428 Mar, [facility] [place] [facility] [address] [id number], [place] [address]- 6312 Mar, [facility] [place] [facility] [address] [facility] [id number], [place] [address]- 7713 Mar, [facility] [address] [facility] [id number][place] 6632 Feb, [facility] [address] [facility] [id number], [place] [address]- 4351 Feb, [facility] [address] [id number][place] [id number] Feb, [facility] [address] [facility] [id number], [place] [address]- 5039 Feb, [facility] [address] [facility] [id number], [place] [address]- 6014 Feb, [facility] [address] [facility] [id number], [place] [address]- 1520 Feb, [facility] [address] [facility] [id number], [place] [address]- 6004 Feb, [facility] [address] [facility] [id number], [place] [address]- 6138 Feb, [facility] [address] [facility] [id number], [place] [address]- 2940 Feb, [facility] [address] [facility] [id number], [place] [address]- 9596 Feb, [facility] [place] [facility] [address] [facility] [id number], [place] [address]- 8561 Feb, [facility] [place] [facility] [address] [facility] [id number], [place] [address]- 0946 Feb, [facility] [address] [facility] [id number], [place] [address]- 8258 Feb, [facility] [place] [facility] [address] [facility] [id number], [place] [address]- 5889 Jan, [facility] [address] [id number][place] [id number] Jan, [facility] [address] [id number] [place] [id number] 16 Jan, 2013 [facility] [place] [address] [id number] [place] [id number] Jan, [facility] [place] [address] [id number] [place] [address] Jan, [facility] [place] [facility] [address] [id number] [place] [address]- 8319 Jan, [facility] [place] [address] [id number] [place] [id number] Jan, [facility] [place] [facility] [address] [id number] [place] [address]- 2952 Dec, [facility] [place] [facility] [address] [id number] [place] [address]- 9986 Dec, [facility] [place] [facility] [address] [facility] [id number] [place] [address]- 9982 Dec, [facility] [place] [address] [id number] [place] [id number] Dec, [facility] [place] [address] [id number] [place] [address] Dec, [facility] [place] [address] [id number] [place] [id number] Dec, [facility] [place] [facility] [address] [id number] [place] [address]- 0398 Dec, [facility] [place] [facility] [address] [facility] [id number] [place] [address]- 9980 Dec, [facility] [place] [address] [id number] [place] [id number] Dec, [facility] [place] [facility] [address] [id number] [place] [address]- 0422 Dec, [facility] [place] [facility] [address] [facility] [id number] [place] [address]- 0188 Nov, [facility] [place] [facility] [address] [facility] [id number] [place] [address]- 1333 Nov, [facility] [place] [facility] [address] [facility] [id number] [place] [address]- 2546 Nov, [facility] [place] [address] [id number] [place] [id number] Nov, [facility] [place] [address] [facility] [id number] [place] [id number] Oct, [facility] [place] [address] [facility] [id number] [place] [id number] Oct, [facility] [place] [facility] [address] [facility] [id number], [place] [address]- 6706 Oct, [facility] [place] [facility] [address] [facility] [id number] [place] [address]- 2546 Oct, [facility] [place] [facility] [address] [facility] [id number], [place] [address]- 7826 Oct, [facility] [place] [address] [facility] [id number] [place] [id number] Oct, [facility] [place] [facility] [id number], [place] [address]- 4326 Oct, [facility] [place] [address] [facility] [id number] [place] [id number] Oct, [facility] [place] [address] [facility] [id number][place] [id number] September, [facility] [place] [facility] [address] [facility] [id number], [place] [address]- 1226 September, [facility] [place] [address] [facility] [id number][place] [id number] September, [facility] [place] [facility] [address] [facility] [id number], [place] [address]- 2546 September, [facility] [place] [facility] [address] [facility] [id number], [place] [address]- 5946 September, [facility] [place] [facility] [address] [facility] [id number], [place] [address]- 2546 September, [facility] [place] [address] [facility] [id number][place] [id number] September, [facility] [place] [facility] [address] [id number], [place] [address]- 9416 September, [facility] [address] [facility] [id number] [place] [address]- 8106 September, [facility] [place] [facility] [address] [facility] [id number] [place] [address]- 9066 Aug, [facility] [address] [facility] [id number] [place] [id number] Aug, [facility] [address] [facility] [id number] [place] [id number] Aug, [facility] [address] [facility] [id number], [place] [address]- 1136 Aug, [facility] [place] [facility] [address] [facility] [id number], [place] [address]- 2546 Aug, [facility] [address] [id number][place] [id number] 15 Aug, 2012 [facility] [address] [facility] [id number][place] [id number] Aug, [facility] [address] [facility] [id number], [place] [address]- 3486 Aug, [facility] [place] [facility] [address] [facility] [id number], [place] [address]- 1296 Aug, [facility] [place] [facility] [address] [facility] [id number], [place] [address]- 3341 Jul, [facility] [place] [address] [facility] [id number][place] [id number] Jul, [facility] [place] [facility] [address] [facility] [id number] [place] [address]- 0192 Jul, [facility] [place] [facility] [address] [facility] [id number], [place] [address]- 6096 Jul, [facility] [place] [facility] [address] [facility] [id number], [place] [address]- 6439 Jul, [facility] [place] [facility] [address] [facility] [id number], [place] [address]- 2546 Jul, [facility] [address] [facility] [id number], [place] [address]- 2546 Jul, [facility] [place] [facility] [address] [id number], [place] [address]- 2546 Jul, [facility] [place] [address] [id number][place] [id number] Jul, [facility] [place] [address] [id number][place] [id number] Jun, [facility] [address] [facility] [id number], [place] [address]- 2676 Jun, [facility] [place] [address] [id number][place] [id number] Jun, [facility] [id number], [place] [address]- 3776 Jun, [facility] [id number], [place] [address]- 5276 May, [facility] [id number], [place] [address]- 3352 May, [facility] [place] [id number], [place] [id number] May, [facility] [place] [address] [id number][place] [id number] May, [facility] [place] [facility] [id number], [place] [address]- 9716 May, [facility] [address] [id number][place] [id number] May, [facility] [place] [facility] [address] [facility] [id number], [place] [address] May, [facility] [place] [facility] [address] [facility] [id number], [place] [address] May, [facility] [address] [id number][place] [id number] Apr, [facility] [address] [id number][place] [id number] Apr, [facility] [address] [facility] [id number] [place] [address] Apr, [facility] [place] [facility] [address] [facility] [id number] [place] [address] Apr, [facility] [place] [facility] [address] [facility] [id number] [place] [address] Apr, [facility] [place] [facility] [address] [facility] [id number] [place] [address] Apr, [facility] [address] [facility] [id number] [place] [id number] Apr, [facility] [place] [facility] [address] [facility] [id number] [place] [address] Apr, [facility] [place] [facility] [id number] [place] [address] Apr, [facility] [place] [facility] [address] [facility] [id number], [place] [address] Apr, [facility] [address] [facility] [id number] [place] [id number] Apr, [facility] [place] [facility] [address] [facility] [id number], [place] [address] Apr, [facility] [place] [facility] [address] [facility] [id number], [place] [address] Apr, [facility] [place] [facility] [address] [facility] [id number], [place] [address] Apr, [facility] [place] [facility] [address] [facility] [id number] [place] [address] Mar, [facility] [place] [facility] [address] [facility] [id number] [place] [address] Mar, [facility] [place] [facility] [address] [facility] [id number] [place] [address] Mar, [facility] [place] [facility] [address] [facility] [id number], [place] [address] Mar, [facility] [address] [facility] [id number][place] [id number] Mar, [facility] [place] [facility] [address] [facility] [id number], [place] [address] Mar, [facility] [address] [facility] [id number][place] [id number] Mar, [facility] [place] [facility] [address] [facility] [id number], [place] [address] Mar, [facility] [address] [facility] [id number][place] [id number] Feb, [facility] [place] [facility] [address] [facility] [id number], [place] [address] Feb, [facility] [place] [facility] [id number], [place] [address] Feb, [facility] [place] [facility] [address] [facility] [id number], [place] [address] Feb, [facility] [place] [facility] [address] [facility] [id number], [place] [address] Jan, [facility] [id number], [place] [id number] Jan, [facility] [place] [facility] [address] [facility] [id number], [place] [address] 13 Jan, 2012 [facility] [place] [facility] [address] [facility] [id number], [place] [address] 10 Jan, 2012 [facility] [place] [facility] [address] [facility] [id number], [place] [address] 05 Jan, 2012 [facility] [address] [facility] [id number][place] [id number] Jan, [facility] [place] [facility] [address] [facility] [id number], [place] [address] Dec, [facility] [address] [facility] [id number], [place] [id number] Dec, [facility] [place] [facility] [address] [id number] [place] [address] Dec, [facility] [place] [facility] [address] [facility] [id number] [place] [address] Dec, [facility] [place] [facility] [address] [facility] [id number] [place] [address] 114[address] Nov, [facility] [place] [facility] [address] [facility] [id number] [place] [address] Nov, [facility] [place] [facility] [address] [facility] [id number] [place] [address] Nov, [facility] [address] [facility] [id number][place] [id number] Nov, [facility] [place] [facility] [address] [facility] [id number] [place] [address] Nov, [facility] [address] [facility] [id number], [place] [id number] Nov, [facility] [place] [facility] [address] [facility] [id number] [place] [address] Nov, [facility] [place] [facility] [address] [facility] [id number], [place] [address] Nov, [facility] [place] [facility] [address] [facility] [id number], [place] [address] Nov, [facility] [place] [facility] [address] [facility] [id number], [place] [address] Oct, [facility] [place] [facility] [address] [facility] [id number] [place] [address] Oct, [facility] [address] [id number] [place] [id number] Oct, [facility] [address] [id number][place] [id number] Oct, [facility] [address] [id number][place] [id number] Oct, [facility] [place] [facility] [address] [id number] [place] [address] Oct, [facility] [address] [id number] [place] [address] Oct, [facility] [place] [facility] [address] [id number] [place] [address] 76[address] Oct, [facility] [place] [facility] [address] [id number] [place] [address]- [address] September, [facility] [place] [facility] [address] [id number] [place] [address] September, [facility] [place] [facility] [address] [id number] [place] [address] 78[address] September, [facility] [address] [id number] [place] [address] Aug, [facility] [place] [facility] [address] [id number] [place] [address]25 Aug, [facility] [address] [id number] [place] [address] Aug, [facility] [address] [facility] [id number] [place] [address]- 9736 Aug, [facility] [id number] [place] [address] Aug, [facility] [id number] [id number] Jul, [facility] [address] [id number] [place] [address] Jul, [facility] [place] [facility] [address] [facility] [id number] [place] [address] 24 Jun, 2011 [facility] [place] [facility] [address] [id number] [place] [address] Jun, [facility] [place] [facility] [address] [facility] [id number] [place] [address] Jun, [facility] [address] [id number] [place] [address] 10 Jun, 2011 [facility] [place] [facility] [address] [id number] [place] [address] 02 Jun, 2011 [facility] [place] [facility] [address] [id number] [place] [address] May, [facility] [place] [facility] [address] [id number] [place] [address] May, [facility] [address] [id number] [place] [address] May, [facility] [place] [facility] [address] [id number] [place] [address] May, [facility] [place] [facility] [address] [id number] [place] [address] May, [facility] [place] [facility] [address] [id number] [place] [address] May, [facility] [address] [id number] [place] [address] May, [facility] [place] [facility] [address] [id number] [place] [address] May, [facility] [place] [facility] [address] [id number] [place] [address] 27 Apr, 2011 [facility] [place] [facility] [address] [id number] [place] [address] 20 Apr, 2011 [facility] [place] [facility] [address] [id number] [place] [address] 16 Apr, 2011 [facility] [place] [facility] [address] [id number] [place] [address] 15 Apr, 2011 [facility] [place] [facility] [address] [id number] [place] [address] 13 Apr, 2011 [facility] [place] [facility] [address] [id number] [place] [address] 05 Apr, 2011 [facility] [place] [facility] [address] [id number] [place] [address] Mar, [facility] [place] [facility] [address] [id number] [place] [address] Mar, [facility] [place] [facility] [address] [id number] [place] [address] 15 Mar, 2011 [facility] [place] [facility] [address] [id number] [place] [address] 14 Mar, 2011 [facility] [place] [facility] [address] [id number] [place] [address] Mar, [facility] [place] [facility] [address] [id number] [place] [address] Mar, [facility] [place] [facility] [address] [id number] [place] [address] Mar, [facility] [place] [facility] [address] [id number] [place] [address] Mar, [facility] [place] [facility] [address] [id number] [place] [address] Feb, [facility] [place] [facility] [address] [id number] [place] [address] 16 Jun, 2010 [facility] [place] [facility] [address] [id number] [place] [address] May, [facility] [place] [facility] [address] [id number] [place] [address] May, [facility] [place] [facility] [address] [id number] [place] [address] Apr, [facility] [place] [facility] [address] [id number] [place] [address] Apr, [facility] [place] [facility] [address] [id number] [place] [address] Apr, [facility] [place] [facility] [address] [id number] [place] [address] Mar, [facility] [place] [facility] [address] [id number] [place] [address] Mar, [facility] [place] [facility] [address] [id number] [place] [address] Mar, [facility] [place] [facility] [address] [id number] [place] [address] Mar, [facility] [place] [facility] [address] [id number] [place] [address] Mar, [facility] [place] [facility] [address] [id number] [place] [address] Feb, [facility] [place] [facility] [address] [id number] [place] [address] Feb, [facility] [address] [id number] [place] [address] Oct, [facility] [place] [facility] [address] [id number] [place] [address] September, [facility] [place] [facility] [address] [id number] [place] [address] Apr, [facility] [place] [facility] [address] [id number] [place] [address] Apr, [facility] [place] [facility] [address] [id number], [place] [address] 30 Mar, 2009 [facility] [place] [facility] [address] [id number] [place] [address] Mar, [facility] [place] [facility] [address] [id number] [place] [address] Mar, [facility] [place] [facility] [address] [id number] [place] [address] 06 Mar, 2009 [facility] [place] [facility] [address] [id number], [place] [address] Mar, [facility] [place] [address] [facility] [id number] [place] [address] Feb, [facility] [place] [address] [facility] [id number], [place] [address] Feb, [facility] [place] [address] [facility] [id number], [place] [address] Jan, [facility] [place] [address] [facility] [id number], [place] [address] Oct, IMMUNIZATIONS No Known Immunizations SOCIAL HISTORY Never Assessed REASON FOR VISIT change nexium PLAN OF CARE VITAL SIGNS MEDICATIONS Medication Instructions Dosage Frequency Start Date End Date Duration Status Esomeprazole Magnesium 40 mg Orally Once a day 1 capsule 24h 90 days Active RESULTS No Results PROCEDURES No Known procedures [...]
--- OUTSIDE RECORDS SUMMARY | 2017-11-22 09:41 | XMS REPORT ---
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 Name Role Phone JENNIFER IGLESIAS Unavailable PROBLEMS Type Condition ICD9-CM Code [id number] Code Onset Dates Condition Status SNOMED Code Problem Osteopenia M85.80 Active 018663043 Problem Gynecologic exam normal Z01.419 Active 720754720 Problem Breast cancer screening Z12.39 Active 862677822 Problem Contusion of right foot, initial encounter S90.31XA Active 16882701 Problem Abscess, ear canal H60.00 Active 06610754 Problem High risk medication use Z79.899 Active 269387841305164 Problem Diabetes mellitus, controlled E11.9 Active 381262405 Problem Depressive disorder, not elsewhere classified F32.9 Active 85090586 Problem Lobar pneumonia J18.1 Active 786054911 Problem Creatinine elevation R79.89 Active 143552500 Problem Type 2 diabetes mellitus with diabetic neuropathy, without long-term current use of insulin E11.40 Active 45992595 Problem Anxiety associated with depression F41.8 Active 482428004 Problem Encounter for Zostavax administration Z23 Active 936159645 Problem Other infective otitis externa of left ear H60.392 Active 36530505 Problem Type 2 diabetes mellitus without complications E11.9 Active 998981761 Problem Morbid obesity due to excess calories E66.01 Active 393014612 Problem Mild persistent asthma without complication J45.30 Active 169191020 Problem Essential hypertension I10 Active 72951948 Problem DM neuro manif type II E11.40 Active 10853495 Problem DM neuro manif type II E11.49 Active 70081489 Problem Other hammer toe(s) (acquired), left foot M20.42 Active 98278610 Problem Anxiety disorder, unspecified F41.9 Active 390519462 Problem Hyperlipidemia, unspecified hyperlipidemia type E78.5 Active 35165046 Problem Other hammer toe(s) (acquired), right foot M20.41 Active 858662629 ALLERGIES Unknown Allergies SOCIAL HISTORY No smoking Hx information available PLAN OF CARE VITAL SIGNS MEDICATIONS Unknown Medications RESULTS No Results PROCEDURES No Known procedures IMMUNIZATIONS No Known Immunizations
--- OUTSIDE RECORDS SUMMARY | 2017-11-22 09:41 | XMS REPORT ---
Author Author JENNIFER IGLESIAS [facility] Address [address] [place] [address] Care Team Providers Care [employer] De[employer] Remover Name Role Phone JENNIFER IGLESIAS Unavailable PROBLEMS Type Condition ICD9-CM Code [id number] Code Onset Dates Condition Status SNOMED Code Problem Osteopenia M85.80 Active 097822867 Problem Gynecologic exam normal Z01.419 Active 577934182 Problem Breast cancer screening Z12.39 Active 140486006 Problem Contusion of right foot, initial encounter S90.31XA Active 59983710 Problem Abscess, ear canal H60.00 Active 79831431 Problem High risk medication use Z79.899 Active 178276313297459 Problem Diabetes mellitus, controlled E11.9 Active 678364068 Problem Anxiety disorder, unspecified F41.9 Active 178311549 Problem Lobar pneumonia J18.1 Active 175102718 Problem Creatinine elevation R79.89 Active 187525699 Problem Type 2 diabetes mellitus with diabetic neuropathy, without long-term current use of insulin E11.40 Active 49657285 Problem Anxiety associated with depression F41.8 Active 744171242 Problem Encounter for Zostavax administration Z23 Active 495422762 Problem Type 2 diabetes mellitus without complications E11.9 Active 719446378 Problem Other infective otitis externa of left ear H60.392 Active 67325796 Problem Morbid obesity due to excess calories E66.01 Active 962242502 Problem Essential hypertension I10 Active 87914401 Problem Hyperlipidemia, unspecified hyperlipidemia type E78.5 Active 39112819 Problem DM neuro manif type II E11.40 Active 66333183 Problem DM neuro manif type II E11.49 Active 27190472 Problem Other hammer toe(s) (acquired), left foot M20.42 Active 51062529 Problem Depressive disorder, not elsewhere classified F32.9 Active 65138131 Problem Mild persistent asthma without complication J45.30 Active 203267383 Problem Other hammer toe(s) (acquired), right foot M20.41 Active 475969079 ALLERGIES Unknown Allergies SOCIAL HISTORY No smoking Hx information available PLAN OF CARE VITAL SIGNS MEDICATIONS Unknown Medications RESULTS No Results PROCEDURES No Known procedures IMMUNIZATIONS No Known Immunizations
--- OUTSIDE RECORDS SUMMARY | 2017-11-22 09:42 | XMS REPORT ---
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 Designer Name Role Phone JENNIFER IGLESIAS Unavailable PROBLEMS Type Condition ICD9-CM Code CWD16-KC Code Onset Dates Condition Status SNOMED Code Problem Depressive disorder, not elsewhere classified F32.9 Active 40283135 Problem DM neuro manif type II E11.40 Active 36531183 Problem Diabetes mellitus, controlled E11.9 Active 997800096 Problem Anxiety disorder, unspecified F41.9 Active 383077029 Problem Abscess, ear canal H60.00 Active 09191225 Problem Type 2 diabetes mellitus without complications E11.9 Active 431364250 Problem Encounter for Zostavax administration Z23 Active 313765946 Problem Morbid obesity due to excess calories E66.01 Active 011933952 Problem Other infective otitis externa of left ear H60.392 Active 55697813 Problem Contusion of right foot, initial encounter S90.31XA Active 10028113 Problem DM neuro manif type II E11.49 Active 60147978 Problem High risk medication use Z79.899 Active 086873643468844 Problem Hyperlipidemia, unspecified hyperlipidemia type E78.5 Active 05611460 Problem Breast cancer screening Z12.31 Active 525860333 Problem Personal history of nicotine dependence Z87.891 Active 32435328 Problem Medicare annual wellness visit, initial Z00.00 Active 410387671 Problem Strep throat J02.0 Active 29255278 Problem Other microscopic hematuria R31.29 Active 569118079 Problem Other hammer toe(s) (acquired), left foot M20.42 Active 45535594 Problem Mild persistent asthma without complication J45.30 Active 529951053 Problem Essential hypertension I10 Active 07135897 Problem Pain in right ankle and joints of right foot M25.571 Active 374004432 Problem Pain in left ankle and joints of left foot M25.572 Active 312702690 Problem BMI 40.0-44.9, adult Z68.41 Active 200896347 Problem Other chronic pain G89.29 Active 49901783 Problem Gynecologic exam normal Z01.419 Active 491223528 Problem Breast cancer screening Z12.39 Active 085430134 Problem Other hammer toe(s) (acquired), right foot M20.41 Active 050700216 Problem Osteopenia M85.80 Active 522170243 Problem Anxiety associated with depression F41.8 Active 125135219 Problem Type 2 diabetes mellitus with diabetic neuropathy, without long-term current use of insulin E11.40 Active 68490096 Problem Creatinine elevation R79.89 Active 192089779 Problem Lobar pneumonia J18.1 Active 456834734 ALLERGIES No Information ENCOUNTERS Encounter Location Date Diagnosis [facility] [address] [id number] [address] September, DM neuro manif type II E11.49 and BMI 40.0-44.9, adult Z68.41 [place] [address] [id number][place] [address] Aug, Anxiety disorder, unspecified F41.9 [facility] [address] [address] Aug, [facility] [id number] [place] [address] Aug, Onychocryptosis L60.0 and DM neuro manif type II E11.40 [facility] [address] [id number][place] [id number] Aug, Acute bronchitis due to other specified organisms J20.8 and BMI 40.0-44.9, adult Z68.41 [facility] [id number] [place] [address]- 2333 Aug, [facility] [address] [id number][place] [id number] Aug, [facility] [address] [place] [address] 899[address]- 9701 Aug, Onychocryptosis L60.[address] [facility] [address] [id number][place] [address] Aug, [facility] [address] [id number][place] [address] Jul, Strep throat J02.0 ; Other microscopic hematuria R31.29 and BMI 40.0-44.9, adult Z68.41 [facility] [address] [id number], [place] [address] Jul, [facility] [address] [id number], [place] [id number] Jun, [facility] [address] [id number], [place] [address] Jun, [facility] [address] [id number], [place] [address] Jun, Type 2 diabetes mellitus without complications E11.9 ; BMI 40.0- 44.9, adult Z68.41 ; Pain in right ankle and joints of right foot M25.571 ; Pain in left ankle and joints of left foot M25.572 and Other chronic pain G89.29 [facility] [address] [facility] [id number] [place] [address] [address] May, Onychomycosis B35.1 ; Onychocryptosis L60.0 and DM neuro manif type II E11.40 [facility] [address] [id number], [place] [address] May, [facility] [address] [id number], [place] [address] May, [facility] [address] [id number][place] [address] Apr, Medicare annual wellness visit, initial Z00.00 ; Personal history of nicotine dependence Z87.891 ; Breast cancer screening Z12.31 and BMI 40.0- 44.9, adult Z68.41 [facility] [address] [id number], [place] [address] Apr, Anxiety disorder, unspecified F41.9 [facility] [address] [address] [id number], [place] [address]40 Feb, [facility] [address] [id number] [address] Feb, Onychomycosis B35.1 and DM neuro manif type II E11.40 [facility] [address] [address] [id number], [place] [id number] Feb, Type 2 diabetes mellitus without complications E11.9 and Encounter for immunization Z23 [facility] [address] [id number], [place] [address] Jan, Anxiety disorder, unspecified F41.9 [facility] [address] [id number], [place] [address] Dec, [facility] [address] [id number] [address] Nov, Right foot sprain, initial encounter S93.601A ; Onychomycosis B35.1 and DM neuro manif type II E11.49 [facility] [address] [id number], [place] [id number] Nov, Type 2 diabetes mellitus without complications E11.9 [facility] [address] [id number], [place] [address] Nov, [facility] [address] [id number], [place] [address] Nov, Type 2 diabetes mellitus without complications E11.9 [facility] [address] [id number], [place] [id number] Nov, [facility] [address] [id number], [place] [address] Nov, [facility] [address] [id number], [place] [address] Nov, Type 2 diabetes mellitus without complications E11.9 ; Contusion of right foot, initial encounter S90.31XA and High risk medication use Z79.899 [facility] [address] [id number], [place] [address] Oct, High risk medication use Z79.899 [facility] [address] [id number], [place] [address]686[address] Oct, Anxiety disorder, unspecified F41.9 [facility] [address] [place] [address] AVE [id number], [place] [address] September, Type 2 diabetes mellitus with diabetic neuropathy, without long- term current use of insulin E11.40 [facility] [address] [facility] [id number][place] [address] Aug, Onychomycosis B35.1 ; DM neuro manif type II E11.40 and Other hammer toe(s) (acquired), right foot M20.41 [facility] [address] [place] [address] AVE [id number], [place] [address] Aug, Type 2 diabetes mellitus without complications E11.9 ; Morbid obesity due to excess calories E66.01 and Encounter for immunization Z23 [facility] [address] [id number], [place] [address] Aug, [facility] [address] [id number], [place] [address] Aug, Anxiety associated with depression F41.8 [facility] [address] [id number], [place] [address]80 Jul, Anxiety disorder, unspecified F41.9 [facility] [address] [id number], [place] [address]284 Jun, Anxiety associated with depression F41.8 [facility] [address] [id number], [place] [address]40 Jun, Lobar pneumonia J18.1 [facility] [address] [id number], [place] [address]66 Jun, Pneumonia of left lower lobe due to infectious organism J18.[address] [facility] [address] [id number], [place] [address] Jun, [facility] [address] [id number], [place] [address] Jun, [facility] [address] [facility] [id number] [place] [address] May, Onychomycosis B35.1 ; Other hammer toe(s) (acquired), right foot M20.41 ; Other hammer toe(s) (acquired), left foot M20.42 and DM neuro manif type II E11.40 [facility] [address] [id number], [place] [id number] May, [facility] [address] [id number], [place] 285[address] May, [facility] [address] [id number], [place] [address] May, [facility] [address] [id number], [place] [address] May, [facility] [address] [id number], [place] [address] May, Gynecologic exam normal Z01.419 ; Breast cancer screening Z12.39 and Creatinine elevation R79.89 [facility] [address] [id number], [place] [address]66[address] Apr, [facility] [address] [address] [id number], [place] 209223668 Apr, Creatinine elevation R79.89 [facility] [address] [id number], [place] [address] 14 Apr, 2016 DM neuro manif type II E11.40 and Osteopenia M85.80 [facility] [address] [facility] [id number] [place] [address] Feb, Onychomycosis B35.1 and DM neuro manif type II E11.49 [facility] [address] [id number], [place] [id number] Feb, [facility] [address] [id number], [place] [address]76168[address] Jan, Mild persistent asthma without complication J45.30 ; Anxiety disorder, unspecified F41.9 and Essential hypertension I10 [facility] [address] [address] Jan, Anxiety disorder, unspecified F41.9 and Depressive disorder , not elsewhere classified F32.9 [facility] [address], [place] [address]- [address] Dec, Anxiety disorder, unspecified F41.9 and Depressive disorder , not elsewhere classified F32.9 [facility] [address], [place] [address] Dec, Left elbow pain M25.522 [facility] [id number] [place] [address] 88212- 3396 Dec, Anxiety disorder, unspecified F41.9 and Depressive disorder , not elsewhere classified F32.9 [place] [id number] [place] [address] 21674- 0363 Nov, Anxiety disorder, unspecified F41.9 and Depressive disorder , not elsewhere classified F32.9 [place] [address], [place] [address]- [address] Nov, Anxiety disorder, unspecified F41.9 and Depressive disorder , not elsewhere classified F32.9 [facility] [address] [id number], [place] 340[address]385 Oct, Diabetes mellitus, controlled E11.9 ; Hyperlipidemia, unspecified hyperlipidemia type E78.5 ; Essential hypertension I10 and Mild persistent asthma without complication J45.30 [facility] [address] [id number] [address]- [address]124 Oct, Anxiety disorder, unspecified F41.9 and Depressive disorder , not elsewhere classified F32.9 [facility] [address] [address]- [address] September, Anxiety disorder, unspecified F41.9 and Depressive disorder , not elsewhere classified F32.9 [place] [address] [id number] [address]- [address]99 Aug, Onychomycosis B35.1 and DM neuro manif type II E11.[address] [id number], [place] [address] Aug, [place] [address] [address] [id number] [address]- [address]14 Aug, Anxiety disorder, unspecified F41.9 and Depressive disorder , not elsewhere classified F32.[address] [id number], [place] 431878195 Jul, Type 2 diabetes mellitus without complications E11.9 ; Encounter for Zostavax administration Z23 ; Morbid obesity due to excess calories E66.01 and Other infective otitis externa of left ear H60.[address] [id number], [place] 123840981 Jul, [place] [address], [place] [address]- 4976 Jul, [place] [address], [place] [address]- [address] Jul, [place] [place] [address] [id number], [place] [id number] Jun, [place] [address] [facility] [id number], [place] [address]- [address]70 Jun, Anxiety disorder, unspecified F41.9 and Depressive disorder , not elsewhere classified F32.9 [facility] [address] [id number], [place] [address]74 Jun, Abscess, ear canal H60.00 [facility] [address] [id number], [place] 866187984 Jun, Abscess, ear canal H60.00 [facility] [address] [id number], [place] [id number] Jun, [facility] [address], [place]66[place]- [address] May, Anxiety disorder, unspecified F41.9 and Depressive disorder , not elsewhere classified F32.[address] [id number], [place] 60[address]32150 Apr, Diabetes mellitus, controlled E11.9 and Breast cancer screening Z12.[address] [id number], [place] [id number] Apr, Diabetes mellitus, controlled E11.9 ; Breast cancer screening Z12.39 and Morbid obesity due to excess calories E66.01 [place] [address] [place] [address] 74900- 3368 Apr, Anxiety disorder, unspecified F41.9 and Depressive disorder , not elsewhere classified F32.[address] [id number], [place] 389108890 Mar, [place] [id number] [place] [address]17- 7366 Mar, Encounter for immunization Z23 [facility] [id number] [place] [address] 29610- 0129 Mar, Anxiety disorder, unspecified F41.9 and Depressive disorder , not elsewhere classified F32.9 [place] [address] [place] [address] 97562- 0759 Feb, Foot ulcer, right L97.519 and DM neuro manif type II E11.40 [place] [address] [place] [address] 62851- 3995 24 Jan, 2015 Anxiety disorder, unspecified 300.00 and Depressive disorder , not elsewhere classified 311 [facility] [address] [id number] [address]446 Jan, [place] [address] [address]- 0973 Jan, Cellulitis of right foot 682.7 ; Onychomycosis 110.1 ; Neuropathy 355.9 and Foot ulcer 707.15 [place] [address], [place] [address]- 7435 Jan, Anxiety disorder, unspecified 300.00 and Depressive disorder , not elsewhere classified [address] [id number], [place] 222525607 Jan, Anxiety disorder, unspecified 300.00 ; Shortness of breath 786.05 and Coronary atherosclerosis of unspecified type of vessel, table mountain or graft 414.[address] [place] [address] 68287- 7255 Dec, Anxiety disorder, unspecified 300.00 and Depressive disorder , not elsewhere classified [id number] [place] [address] 36376- 2190 Dec, Anxiety disorder, unspecified 300.00 and Depressive disorder , not elsewhere classified [address] [id number], [place] 569083222 Nov, [address] [place] [address] 66552- 2394 Nov, Anxiety disorder, unspecified 300.00 and Depressive disorder , not elsewhere classified [address] [id number], [place] [id number] Nov, Shortness of breath 786.05 and Morbid obesity 278.[address] [place] [address] 35051- 7925 Nov, Anxiety disorder, unspecified 300.00 and Depressive disorder , not elsewhere classified [address] [id number], [place] 568348550 Oct, Asthma, moderate persistent 493.[address] [id number] [place] [address] 35486- 3013 Oct, Anxiety disorder, unspecified 300.00 and Depressive disorder , not elsewhere classified 311 [facility] [address], [place] [address]- 8[address] September, Hammertoe 735.4 ; Onychomycosis 110.1 and Type I diabetes mellitus with neurological manifestations 250.[address] [id number], [place] [id number] September, [facility] [id number] [place] [address] 93077- 0606 September, Anxiety disorder, unspecified 300.00 and Depressive disorder , not elsewhere classified 311 [facility] [address] [place], [place] [address] [id number], [place] 807844789 September, Diabetes type 2, controlled 250.00 ; Asthma, mild persistent 493.90 and Dermatitis, contact 692.[address] [id number], [place] 426882751 September, [facility] [address], [place] [address]- 6214 September, Anxiety state, unspecified 300.00 and Depressive disorder, not elsewhere classified 311 [facility] [address], [place] [address]- 1180 Aug, [facility] [address], [place] [address]- 5376 Aug, [facility] [id number] [place] [address] 66475237- 6075 Jul, [facility] [address]100[place], [place] [address]- 1713 Jul, [facility] [id number] [place] [address] 22079369- 9111 Jul, [facility] [address], [place] 44790744- 6886 Jul, [facility] [id number] [place] [address]- 6[address] 13 Jul, 2014 [facility] [place] [facility] [address] [id number] [place] [address]- 5212 13 Jul, 2014 [facility] [place] [facility] [address] [id number] [place] [address]- 6436 02 Jul, 2014 [facility] [place] [facility] [address] [facility] [id number] [place] [address]- 6094 02 Jul, 2014 [facility] [place] [facility] [address] [id number] [place] [address]- 1568 27 Jun, 2014 [facility] [place] [facility] [address] [id number] [place] [address]- 4820 27 Jun, 2014 [facility] [place] [facility] [address] [facility] [id number] [place] [address]- 1885 20 Jun, 2014 [facility] [place] [facility] [address] [facility] [id number] [place] [address]- 3854 20 Jun, 2014 [facility] [place] [facility] [address] [facility] [id number] [place] [address]- 8676 17 Jun, 2014 [facility] [place] [facility] [address] [facility] [id number] [place] [address]- 6568 17 Jun, 2014 [facility] [place] [facility] [address] [facility] [id number] [place] [address]- 2390 16 Jun, 2014 [facility] [place] [facility] [address] [facility] [id number] [place] [address]- 0634 16 Jun, 2014 [facility] [place] [facility] [address] [facility] [id number] [place] [address]- 2541 11 Jun, 2014 [facility] [place] [facility] [address] [facility] [id number] [place] [address]- 6287 11 Jun, 2014 [facility] [place] [facility] [address] [facility] [id number] [place] [address]- 2323 10 Jun, 2014 [facility] [place] [facility] [address] [facility] [id number] [place] [address]- 8643 Jun, [facility] [place] [facility] [address] [id number] [place] [address]- 0306 Jun, [facility] [place] [facility] [address] [id number] [place] [address]- 4830 Jun, [facility] [place] [facility] [address] [id number] [place] [address]- 2383 May, [facility] [place] [facility] [address] [id number] [place] [address]- 6516 May, [facility] [place] [facility] [address] [id number] [place] [address]- 5859 May, [facility] [place] [facility] [address] [id number] [place] [address]- 6092 May, [facility] [place] [facility] [address] [id number] [place] [address]- 5098 May, [facility] [place] [facility] [address] [id number] [place] [address]- 1887 May, [facility] [place] [facility] [address] [id number] [place] [address]- 7045 May, [facility] [place] [facility] [address] [id number] [place] [address]- 9934 May, [facility] [place] [facility] [address] [id number] [place] [address]- 7751 Apr, [facility] [place] [facility] [address] [id number] [place] [address]- 3570 Apr, [facility] [place] [facility] [address] [id number] [place] [address]- 8559 Apr, [facility] [place] [facility] [address] [id number] [place] [address]- 8673 Apr, [facility] [place] [facility] [address] [id number] [place] [address]- 1534 Apr, [facility] [place] [facility] [address] [id number] [place] [address]- 6936 20 Apr, 2014 [facility] [place] [facility] [address] [id number] [place] [address]- 1162 15 Apr, 2014 [facility] [place] [facility] [address] [id number] [place] [address]- 6153 Apr, [facility] [place] [facility] [address] [id number] [place] [address]- 9923 Apr, [facility] [place] [facility] [address] [id number] [place] [address]- 2823 Apr, [facility] [place] [facility] [address] [id number] [place] [address]- 2161 Apr, [facility] [place] [facility] [address] [id number] [place] [address]- 0652 Apr, [facility] [place] [facility] [address] [id number] [place] [address] Mar, [facility] [place] [facility] [address] [id number] [place] [address] Mar, [facility] [place] [facility] [address] [id number] [place] [address] Mar, [facility] [place] [facility] [address] [id number] [place] [address] Mar, [facility] [place] [facility] [address] [id number] [place] [address] Mar, [facility] [place] [facility] [address] [id number] [place] [address] Mar, [facility] [place] [facility] [address] [id number] [place] [address] Mar, [facility] [place] [facility] [address] [id number] [place] [address] Mar, [facility] [place] [facility] [address] [id number] [place] [address] Feb, [facility] [place] [facility] [address] [id number] [place] [address] Feb, [facility] [place] [facility] [address] [id number] [place] [address] Feb, [facility] [place] [facility] [address] [id number] [place] [address] Feb, [facility] [place] [facility] [address] [id number] [place] [address] Feb, [facility] [place] [facility] [address] [id number] [place] [address] Feb, [facility] [place] [facility] [address] [id number] [place] [address] Feb, [facility] [place] [facility] [address] [id number] [place] [address] Feb, [facility] [place] [facility] [address] [id number] [place] [address]- [address] 19 Jan, 2013 [facility] [place] [facility] [address] [id number] [place] [address] 19 Jan, 2013 [facility] [place] [facility] [address] [id number] [place] [address] 17 Sep, 2013 [facility] [place] [facility] [address] [id number] [place] [address] 17 Sep, 2013 [facility] [place] [facility] [address] [id number] [address] 16 Sep, 2013 [facility] [place] [facility] [address] [id number] [place] [address] 16 Sep, 2013 [facility] [place] [facility] [address] [id number] [place] [address] 15 Sep, 2013 [facility] [place] [facility] [address] [id number] [place] [address] 15 Jan, 2013 [facility] [place] [facility] [address] [id number] [place] [address] 9440 15 Jan, 2014 [facility] [place] [facility] [address] [id number] [place] [address]- 6882 15 Jan, 2014 [facility] [place] [facility] [address] [id number] [place] [address]- 4206 09 Jan, 2014 [facility] [place] [facility] [address] [id number] [place] [address] 6006 Jan, [facility] [place] [facility] [address] [id number] [place] [address]- 2773 Dec, [facility] [place] [facility] [address] [id number] [place] [address]- 4339 Dec, [facility] [place] [facility] [address] [id number] [place] [address]- 5900 Dec, [facility] [place] [facility] [address] [id number] [place] [address]- 2636 Dec, [facility] [place] [facility] [address] [id number] [place] [address]- 5407 Nov, [facility] [place] [facility] [address] [id number] [place] [address]- 3588 Nov, [facility] [place] [facility] [address] [id number] [place] [address]- 6499 Nov, [facility] [place] [facility] [address] [id number] [place] [address]- 6582 Nov, [facility] [place] [facility] [address] [id number] [place] [address]- 1470 Oct, [facility] [place] [facility] [address] [id number] [place] [address]- 8709 Oct, [facility] [place] [facility] [address] [id number] [place] [address]- 0774 Oct, [facility] [place] [facility] [address] [id number] [place] [address]- 7095 Oct, [facility] [place] [facility] [address] [id number] [place] [address]- 4956 Oct, [facility] [place] [facility] [address] [id number] [place] [address]- 8155 Oct, [facility] [place] [facility] [address] [id number] [place] [address]- 9732 Oct, [facility] [place] [facility] [address] [id number] [place] [address]- 7141 Oct, [facility] [place] [facility] [address] [id number] [place] [address]- 1114 Oct, [facility] [place] [facility] [address] [id number] [place] [address]- 3041 Oct, [facility] [place] [facility] [address] [id number] [place] [address]- 4750 September, [facility] [place] [facility] [address] [id number] [place] [address]- 9781 September, [facility] [place] [facility] [address] [id number] [place] [address]- 4760 September, [facility] [place] [facility] [address] [id number] [place] [address]- 9059 September, [facility] [place] [facility] [address] [id number] [place] [address]- 2493 September, [facility] [place] [facility] [address] [id number] [place] [address]- 3215 September, [facility] [place] [facility] [address] [id number] [place] [address]- 9528 September, [facility] [place] [facility] [address] [id number] [place] [address]- 3617 September, [facility] [place] [facility] [address] [id number] [place] [address]- 1021 Aug, [facility] [place] [facility] [address] [id number] [place] [address]- 1740 Aug, [facility] [place] [facility] [address] [id number] [place] [address]- 1736 Aug, [facility] [place] [facility] [address] [id number] [place] [address]- 0746 Aug, [facility] [place] [facility] [address] [id number] [place] [address]- 9138 Aug, [facility] [place] [facility] [address] [id number] [place] [address]- 0707 Aug, [facility] [place] [facility] [address] [id number] [place] [address]- 2545 Aug, [facility] [place] [facility] [address] [id number] [place] [address]- 0523 Aug, [facility] [place] [facility] [address] [id number] [place] [address]- 9785 Aug, [facility] [place] [facility] [address] [id number] [place] [address]- 8694 Jul, [facility] [place] [facility] [address] [id number] [place] [address]- 7388 Jul, [facility] [place] [facility] [address] [id number] [place] [address]- 4950 Jul, [facility] [place] [facility] [address] [id number] [place] [address]- 7139 Jul, [facility] [place] [facility] [address] [id number] [place] [address]- 3292 Jul, [facility] [place] [facility] [address] [id number] [place] [address]- 2457 Jul, [facility] [place] [facility] [address] [id number] [place] [address]- 4147 Jul, [facility] [place] [facility] [address] [id number] [place] [address]- 3391 Jul, [facility] [place] [facility] [address] [id number] [place] [address]- 2393 18 Jul, 2013 [facility] [place] [facility] [address] [id number] [place] [address]- 6841 18 Jul, 2013 [facility] [place] [facility] [address] [id number] [place] [address]- 1156 Jul, [facility] [place] [facility] [address] [id number] [place] [address]- 3045 Jul, [facility] [place] [facility] [address] [id number] [place] [address]- 0318 Jul, [facility] [place] [facility] [address] [id number] [place] [address]- 2392 Jul, [facility] [place] [facility] [address] [id number] [place] [address]- 0834 Jul, [facility] [place] [facility] [address] [id number] [place] [address]- 7299 Jul, [facility] [place] [facility] [address] [id number] [place] [address]- 6027 Jul, [facility] [place] [facility] [address] [id number] [place] [address]- 4177 Jul, [facility] [place] [facility] [address] [facility] [id number] [place] [address]- 9909 Jul, [facility] [place] [facility] [address] [id number] [place] [address]- 3581 Jul, [facility] [place] [facility] [address] [id number] [place] [address]- 2939 Jun, [facility] [place] [facility] [address] [id number] [place] Jun, [facility] [place] [facility] [address] [id number] [place] [address]- 6000 Jun, [facility] [place] [facility] [address] [id number] [place] [address] Jun, [facility] [place] [facility] [address] [id number] [place] [address]- 9734 Jun, [facility] [place] [facility] [address] [id number] [place] [address]- 3002 Jun, [facility] [place] [facility] [address] [id number] [place] [address]- 5670 Jun, [facility] [place] [facility] [address] [id number] [place] [address]- 4412 Jun, [facility] [place] [facility] [address] [id number] [place] [address]- 3117 Jun, [facility] [place] [facility] [address] [id number] [place] [address]- 1647 Jun, [facility] [place] [facility] [address] [id number] [place] [address]- 9520 Jun, [facility] [place] [facility] [address] [id number] [place] [address]- 3210 Jun, [facility] [place] [facility] [address] [id number] [place] [address]- 9361 May, [facility] [place] [facility] [address] [id number] [place] [address]- 1331 May, [facility] [place] [facility] [address] [id number] [place] [address]- 5174 May, [facility] [place] [facility] [address] [id number] [place] [address]- 4439 May, [facility] [place] [facility] [address] [id number] [place] [address]- 8865 May, [facility] [place] [facility] [address] [id number] [place] [address]- 6355 May, [facility] [place] [facility] [address] [id number] [place] [address]- 5141 May, [facility] [place] [facility] [address] [id number] [place] [address]- 9913 May, [facility] [address] [id number] [place] [address]- 8064 May, [facility] [address] [id number] [place] [address]- 9736 May, [facility] [address] [id number] [place] [address]- 6024 May, [facility] [address] [id number] [place] [address]- 2404 May, [facility] [address] [id number] [place] [address]- 2350 May, [facility] [address] [id number] [place] [address]- 9248 May, [facility] [address] [id number] [place] [address]- 9080 Apr, [facility] [address] [id number] [place] [address]- 7151 Apr, [facility] [address] [id number] [place] [address]- 4576 Apr, [facility] [address] [id number] [place] [address]- 1462 17 Apr, 2013 [facility] [address] [id number] [place] [address]- 2768 16 Apr, 2013 [facility] [address] [id number] [place] [address]- 9409 16 Apr, 2013 [facility] [address] [id number] [place] [address]- 4276 12 Apr, 2013 [facility] [address] [id number] [place] [address]- 6516 12 Apr, 2013 [facility] [address] [id number] [place] [address]35 Apr, [facility] [place] [facility] [address] [id number] [place] [address]- 7325 Apr, [facility] [place] [facility] [address] [id number] [place] [address]- 9296 Apr, [facility] [place] [facility] [address] [id number] [place] [address]- 9307 Apr, [facility] [place] [facility] [address] [id number] [place] [address]- 5503 Mar, [facility] [place] [facility] [address] [id number] [place] [address]- 5359 Mar, [facility] [place] [facility] [address] [id number] [place] [address]- 0752 Mar, [facility] [place] [facility] [address] [id number] [place] [address]- 4360 Mar, [facility] [place] [facility] [address] [id number] [place] [address]- 4663 Mar, [facility] [place] [facility] [address] [id number] [place] [address]- 3847 Mar, [facility] [place] [facility] [address] [id number][place] [address]- 3705 Mar, [facility] [place] [facility] [address] [id number][place] [address]- 9712 Mar, [facility] [place] [facility] [address] [id number], [place] [address]- 9182 Mar, [facility] [place] [facility] [address] [id number] [place] [address]- 5765 Mar, [facility] [place] [facility] [address] [id number][place] [address]- 0211 Mar, [facility] [place] [facility] [address] [id number], [place] [address]- 5129 Mar, [facility] [place] [facility] [address] [id number], [place] [address]- 8193 Feb, [facility] [address] [id number], [place] [address]- 4818 Feb, [facility] [address] [id number][place] [address] Feb, [facility] [address] [facility] [id number][place] [address]- 0988 Feb, [facility] [address] [id number], [place] [address]- 9290 Feb, [facility] [address] [id number], [place] [address]- 9643 Feb, [facility] [address] [facility] [id number], [place] [address]- 1189 Feb, [facility] [address] [facility] [id number], [place] [address]- 4116 Feb, [facility] [address] [facility] [id number][place] [address]- 2655 Feb, [facility] [address] [facility] [id number][place] [address]- 6172 Feb, [facility] [place] [facility] [address] [facility] [id number], [place] [address]- 0937 Feb, [facility] [address] [facility] [id number][place] [address]- 6632 Feb, [facility] [place] [facility] [address] [facility] [id number], [place] [address]- 0443 Feb, [facility] [place] [facility] [address] [facility] [id number][place] [address]- 7057 Jan, [facility] [address] [id number] [id number] 19 Jan, 2013 [facility] [address] [id number][place] [id number] 16 Jan, 2013 [facility] [address] [facility] [id number][place] [id number] Jan, [facility] [address] [id number] [place] [address] Jan, [facility] [place] [facility] [address] [id number] [place] [address]- 0146 Jan, [facility] [address] [id number] [place] [address] Jan, [facility] [place] [facility] [address] [id number] [place] [address]- 4850 Dec, [facility] [place] [facility] [address] [id number] [place] [address]- 5448 Dec, [facility] [place] [facility] [address] [id number] [place] [address]- 8606 Dec, [facility] [address] [id number] [place] [id number] Dec, [facility] [address] [id number] [place] [address] Dec, [facility] [address] [id number] [place] [address] Dec, [facility] [place] [facility] [address] [id number] [place] [address]- 3001 Dec, [facility] [place] [facility] [address] [id number], [place] [address]- 5313 Dec, [facility] [address] [id number][place] [id number] Dec, [facility] [place] [facility] [address] [id number], [place] [address]- 5907 Dec, [facility] [place] [facility] [address] [id number] [place] [address]- 8180 Nov, [facility] [place] [facility] [address] [facility] [id number] [place] [address]- 9350 Nov, [facility] [place] [facility] [address] [id number] [place] [address]- 3054 Nov, [facility] [address] [id number] [place] [id number] 10 Nov, 2012 [facility] [address] [id number] [place] [address] Oct, [facility] [address] [id number] [place] [id number] Oct, [facility] [place] [facility] [address] [facility] [id number] [place] [address]- 4156 Oct, [facility] [place] [facility] [address] [facility] [id number] [place] [address]- 6288 Oct, [facility] [place] [facility] [address] [id number] [place] [address]- 4741 Oct, [facility] [address] [id number] [place] [id number] Oct, [facility] [place] [facility] [address] [id number] [place] [address]- 8272 Oct, [facility] [address] [id number] [place] [id number] Oct, [facility] [address] [id number] [place] [id number] September, [facility] [place] [facility] [id number] [place] [address]- 9986 September, [facility] [address] [id number] [place] [id number] September, [facility] [place] [facility] [id number] [place] [address]- 5816 September, [facility] [place] [facility] [address] [facility] [id number], [place] [address]- 4476 September, [facility] [place] [facility] [address] [facility] [id number] [place] [address]- 9506 September, [facility] [address] [facility] [id number] [place] [id number] September, [facility] [place] [facility] [address] [facility] [id number] [place] [address]- 7532 September, [facility] [place] [facility] [address] [facility] [id number], [place] [address]- 9606 September, [facility] [address] [facility] [id number], [place] [address]- 8521 Aug, [facility] [address] [id number] [place] [id number] Aug, [facility] [address] [facility] [id number] [place] [id number] Aug, [facility] [place] [facility] [address] [facility] [id number], [place] [address]- 8756 Aug, [facility] [address] [facility] [id number], [place] [address]- 4596 17 Aug, 2012 [facility] [address] [id number][place] [id number] 15 Aug, 2012 [facility] [address] [facility] [id number] [place] [id number] Aug, [facility] [place] [facility] [address] [facility] [id number], [place] [address]- 0117 Aug, [facility] [place] [facility] [address] [facility] [id number], [place] [address]- 7064 Aug, [facility] [place] [facility] [address] [id number], [place] [address]- 4395 Jul, [facility] [address] [facility] [id number][place] [id number] Jul, [facility] [place] [facility] [address] [facility] [id number], [place] [address]- 4038 Jul, [facility] [place] [facility] [address] [facility] [id number], [place] [address]- 5531 Jul, [facility] [place] [facility] [address] [facility] [id number][place] [address]- 7149 Jul, [facility] [place] [facility] [address] [facility] [id number][place] [address]- 9993 08 Jul, 2012 [facility] [place] [facility] [address] [facility] [id number][place] [address]- 2546 Jul, [facility] [address] [facility] [id number], [place] [address]- 5856 Jul, [facility] [address] [id number] [place] [id number] Jul, [facility] [address] [facility] [id number] [place] [id number] Jun, [facility] [place] [facility] [address] [facility] [id number], [place] [address]- 5566 Jun, [facility] [address] [facility] [id number] [place] [address] Jun, [facility] [place] [facility] [address] [facility] [id number], [place] [address]- 4546 Jun, [facility] [place] [facility] [id number], [place] [address]- 8488 May, [facility] [address] [id number], [place] [address]- 2059 May, [facility] [address] [facility] [id number][place] [id number] May, [facility] [address] [facility] [id number][place] [id number] May, [facility] [address]00565100[place], [place] [address]- 4295 May, [facility] [address] [facility] [id number][place] [id number] May, [facility] [place] [facility] [address] [facility] [id number], [place] [address]- 6808 May, [facility] [place] [facility] [address] [facility] [id number][place] [address]- 5726 May, [facility] [address] [facility] [id number][place] [id number] Apr, [facility] [address] [facility] [id number][place] [id number] Apr, [facility] [place] [facility] [id number] [place] [address]- 6896 Apr, [facility] [address] [id number] [place] [address] Apr, [facility] [place] [facility] [address] [id number] [place] [address] Apr, [facility] [address] [id number] [place] [address] Apr, [facility] [address] [facility] [id number][place] [id number] Apr, [facility] [place] [facility] [address] [id number] [place] [address] Apr, [facility] [place] [facility] [address] [id number] [place] [address] Apr, [facility] [address] [id number], [place] [address] Apr, [facility] [address] [facility] [id number][place] [id number] Apr, [facility] [place] [facility] [address] [id number] [place] [address] Apr, [facility] [place] [facility] [address] [id number], [place] [address] Apr, [facility] [place] [facility] [address] [id number], [place] [address] Apr, [facility] [place] [facility] [address] [id number], [place] [address] Mar, [facility] [place] [facility] [address] [id number] [place] [address] Mar, [facility] [place] [facility] [address] [facility] [id number], [place] [address] Mar, [facility] [place] [facility] [address] [id number], [place] [address] Mar, [facility] [address] [facility] [id number] [place] [id number] 14 Mar, 2012 [facility] [place] [facility] [address] [id number] [place] [address] Mar, [facility] [address] [facility] [id number] [place] [id number] Mar, [facility] [place] [facility] [address] [facility] [id number], [place] [address] Mar, [facility] [address] [facility] [id number][place] [id number] Feb, [facility] [place] [facility] [address] [facility] [id number] [place] [address]65 Feb, [facility] [place] [facility] [address] [facility] [id number], [place] [address] Feb, [facility] [place] [facility] [id number], [place] [address] Feb, [facility] [place] [facility] [address] [facility] [id number], [place] [address] Jan, [facility] [address] [facility] [id number][place] [id number] Jan, [facility] [place] [facility] [address] [facility] [id number], [place] [address] Jan, [facility] [place] [facility] [id number] [address] Jan, [facility] [place] [facility] [address] [facility] [id number], [place] [address] 05 Jan, 2012 [facility] [address] [facility] [id number][place] [id number] Jan, [facility] [place] [facility] [address] [facility] [id number], [place] [address] Dec, [facility] [address] [facility] [id number][place] [id number] Dec, [facility] [place] [facility] [address] [facility] [id number], [place] [address] Dec, [facility] [place] [facility] [address] [id number] [place] [address]647 Dec, [facility] [place] [facility] [address] [id number] [place] [address] 270[address] Nov, [facility] [place] [facility] [address] [id number] [place] [address] 6527 Nov, [facility] [place] [facility] [address] [id number] [place] [address] Nov, [facility] [address] [id number] [place] [id number] Nov, [facility] [place] [facility] [address] [id number] [place] [address] Nov, [facility] [address] [facility] [id number] [place] [id number] Nov, [facility] [place] [facility] [address] [facility] [id number], [place] [address] Nov, [facility] [place] [facility] [address] [facility] [id number] [place] [address]- [address] Nov, [facility] [place] [facility] [address] [facility] [id number], [place] [address]283 Nov, [facility] [place] [facility] [address] [facility] [id number], [place] [address] Oct, [facility] [place] [facility] [address] [id number], [place] [address] Oct, [facility] [address] [id number] [place] [id number] Oct, [facility] [address] [id number] [place] [id number] Oct, [facility] [address] [id number] [place] [id number] Oct, [facility] [place] [facility] [address] [id number] [place] [address] Oct, [facility] [place] [facility] [address] [id number] [place] [address]706 Oct, [facility] [address] [id number] [place] [address]- [address]36 Oct, [facility] [address] [id number] [place] [address] September, [facility] [address] [id number] [place] [address]6 September, [facility] [address] [id number] [place] [address] September, [facility] [address] [id number] [place] [address]- [address]252 Aug, [facility] [address] [id number] [place] [address] Aug, [facility] [address] [id number] [place] [address]- 7921 Aug, [facility] [address] [id number] [place] [address] Aug, [facility] [address] [place] [id number] [place] [address] Aug, [facility] [address] [id number][place] [id number] Jul, [facility] [address] [id number] [place] [address] Jul, [facility] [address] [id number], [place] [address] Jun, [facility] [address] [id number] [place] [address]- 6256 Jun, [facility] [address] [id number] [place] [address]- [address]26 13 Jun, 2011 [facility] [address] [id number] [place] [address]- 8741 Jun, [facility] [address] [id number] [place] [address]- [address]706 02 Jun, 2011 [facility] [place] [facility] [address] [id number] [place] [address]396 May, [facility] [place] [facility] [address] [id number] [place] [address]- [address] May, [facility] [facility] [address] [id number] [place] [address] May, [facility] [address] [id number] [place] [address] May, [facility] [place] [facility] [address] [id number] [place] [address] May, [facility] [place] [facility] [address] [id number] [place] [address] May, [facility] [address] [id number] [place] [address] May, [facility] [place] [facility] [address] [id number] [place] [address] May, [facility] [place] [facility] [address] [id number] [place] [address] Apr, [facility] [address] [id number] [place] [address] Apr, [facility] [place] [facility] [address] [id number] [place] [address] 16 Apr, 2011 [facility] [place] [facility] [address] [id number] [place] [address] 15 Apr, 2011 [facility] [place] [facility] [address] [id number] [place] [address] 13 Apr, 2011 [facility] [place] [facility] [address] [id number] [place] [address] 05 Apr, 2011 [facility] [place] [facility] [address] [id number] [place] [address] Mar, [facility] [place] [facility] [address] [id number] [place] [address] Mar, [facility] [place] [facility] [address] [id number] [place] [address] 15 Mar, 2011 [facility] [place] [facility] [address] [id number] [place] [address] 14 Mar, 2011 [facility] [place] [address] [id number] [place] [address] 14 Mar, 2011 [facility] [place] [facility] [address] [id number] [place] [address] Mar, [facility] [place] [address] [id number] [place] [address] Mar, [facility] [place] [address] [id number] [place] [address] Mar, [facility] [place] [address] [id number] [place] [address] 14 Feb, 2011 [facility] [address] [id number] [place] [address] 16 Jun, 2010 [facility] [address] [id number] [place] [address] May, [facility] [address] [id number] [place] [address] 13 May, 2010 [facility] [address] [id number], [place] [address] Apr, [facility] [address] [id number] [place] [address] Apr, [facility] [address] [id number] [place] [address] Apr, [facility] [address] [id number], [place] [address] 24 Mar, 2010 [facility] [address] [id number] [place] [address] 15 Mar, 2010 [facility] [address] [id number] [place] [address] Mar, [facility] [address] [id number] [place] [address] Mar, [facility] [address] [id number] [place] [address] Mar, [facility] [address] [id number] [place] [address] Feb, [facility] [address] [id number] [place] [address] Feb, [facility] [address] [id number] [place] [address] Oct, [facility] [address] [id number] [place] [address] September, [facility] [address] [id number] [place] [address] Apr, [facility] [address] [id number] [place] [address] Apr, [facility] [address] [id number] [place] [address] Mar, [facility] [address] [id number] [place] [address] Mar, [facility] [address] [id number] [place] [address] Mar, [facility] [address] [id number] [place] [address] Mar, [facility] [address] [id number] [place] [address] Mar, [facility] [address] [id number] [place] [address] Feb, [facility] [address] [facility] [id number] [place] [address] Feb, [facility] [address] [facility] [id number] [place] [address] Jan, [facility] [address] [facility] [id number] [place] [address] Oct, IMMUNIZATIONS No Known Immunizations SOCIAL HISTORY Never Assessed REASON FOR VISIT refill PLAN OF CARE VITAL SIGNS MEDICATIONS Medication Instructions Dosage Frequency Start Date End Date Duration Status Ativan 0.5 MG Orally Two times per day, must last 30 days 1 tablet as needed for severe anxiety Active RESULTS No Results PROCEDURES No Known [...] Medical History chest CT no suspicious findings Medical History Zostavax 2012 Surgical History appendectomy 1977 Surgical History hysterectomy [...]
--- OUTSIDE RECORDS SUMMARY | 2017-11-22 09:42 | XMS REPORT ---
Author SAUD Lugo [facility] Address Unknown Phone Unavailable Care Team Providers Care Oil Furnace Installer Name Role Phone SAUD DUTTA CP Unavailable Allergies, Adverse Reactions, Alerts Substance Reaction Event Type Ultram Info Not Available Drug Allergy Theophylline Info Not Available Drug Allergy Tegretol Info Not Available Drug Allergy Talacen Info Not Available Drug Allergy Imitrex Info Not Available Drug Allergy Erythromycin Info Not Available Drug Allergy Emcyt Info Not Available Drug Allergy Dilantin Info Not Available Drug Allergy Darvon Info Not Available Drug Allergy Byetta 10 MCG Pen Info Not Available Drug Allergy Problems Problem Type Condition Code Onset Dates Condition Status Problem Diabetes mellitus, controlled E11.9 Active Problem Anxiety disorder, unspecified F41.9 Active Problem Abscess, ear canal H60.00 Active Assessment Abscess, ear canal H60.00 Active Problem Depressive disorder, not elsewhere classified F32.9 Active Problem DM neuro manif type II E11.40 Active Medications Medication Code System Code Instructions Start Date End Date Status Dosage Metoprolol Tartrate [facility] [address]-62 25 MG Orally Twice a day TAKE TWO TABLETS BY MOUTH DAILY IN THE MORNING, AND ONE TABLET BY MOUTH DAILY IN THE EVENING. Sertraline HCl [facility] [address]-10 100 MG Orally Once a day 1 1/2 tablets Bacitracin [facility] [address]-40 500 UNIT/GM Externally-to left external ear canal, use cotton tip applicator 2 times a day Jun 12, 2015 1 application to affected area Ativan [facility] [address]-11 0.5 MG Orally Two times per day 1 tablet as needed Vitamin D [facility] [address]-10 1000 UNIT Orally Once a day 1 capsule Zanaflex [facility] [address]-32 4 MG Orally every 8 hrs not defined Gabapentin [facility] [address]-38 800 MG Orally Four times a day not defined Crestor [facility] 01768412613 40 MG Orally Once a day 1 tablet Bactrim DS [facility] [address]-07 800-160 MG Orally Twice a day Jun 12, 2015 Jun 22, 2015 1 tablet Zoloft NDC 0 100 mg Oral once a day 1.5 E-Z Spacer [facility] [address]-44 Two times a day not defined ProAir HFA [facility] [address]-76 108 (90 Base) MCG/ACT Inhalation PRN 2 puffs as needed [place] [facility] [address]-90 7.5-325 MG Orally every 6 hrs 1 tablet as needed Colace [facility] [address]-37 100 MG Orally Two times per day PRN 1 capsule as needed Metformin HCl [facility] 60831988074 1000 MG Orally Twice a day 1 tablet with meals Fosamax [facility] 81279728500 70 MG Orally once a week Take 1 tablet by Oral route 1 time per week Lyrica [facility] [address]-58 100 MG Orally Twice a day 1 capsule Cipro HC [facility] [address]-36 0.2-1 % Otic Twice a day Jun 18, 2015 3 drops into affected ear Lovenox [facility] [address]-53 Injection Once a day not defined Lisinopril [facility] [address]-49 2.5 MG Orally Once a day Mar 25, 2015 1 tablet Hydrochlorothiazide [facility] [address]-44 25 MG Orally Once a day 1 tablet nexium NDC 0 40 mg 2 times per day 1 Fish Oil [facility] [address]-16 500 MG Orally Once a day 1 capsule Claritin [facility] [address]-07 10 MG Orally Once a day 1 tablet Flovent HFA [facility] 33741336495 110 MCG/ACT 2 puffs Twice a day Inhalation 30 days Carafate [facility] [address]-72 1 GM Orally Four times a day 1 tablet on an empty stomach Procedures Procedure Coding System Code Date Office Visit, Est Pt., Level 3 CPT-4 58001 Jun 18, 2015 [facility] VISIT ESTABLISHED PATIENT CPT-4 G0467 Jun 18, 2015 Vital Signs Date/Time: Jun 18, 2015 Temperature 98.4 F Weight 240.2 lbs Height 65 in BMI 39.97 Index Blood Pressure Diastolic 78 mmHg Blood Pressure Systolic 126 mmHg Cardiac Monitoring Heart Rate 85 bpm Results No Known Results Summary Purpose eClinicalWorks Submission
--- OUTSIDE RECORDS SUMMARY | 2017-11-22 09:42 | XMS REPORT ---
Author Author JENNIFER IGLESIAS [facility] Address [address] [place] [address] Care Team Providers Care Savings Teller Name Role Phone JENNIFER IGLESIAS Unavailable PROBLEMS Type Condition ICD9-CM Code [id number] Code Onset Dates Condition Status SNOMED Code Problem Osteopenia M85.80 Active 194591642 Problem Gynecologic exam normal Z01.419 Active 809631901 Problem Breast cancer screening Z12.39 Active 964901219 Problem Contusion of right foot, initial encounter S90.31XA Active 30245872 Problem Abscess, ear canal H60.00 Active 30341927 Problem High risk medication use Z79.899 Active 130273250109104 Problem Diabetes mellitus, controlled E11.9 Active 035070928 Problem Depressive disorder, not elsewhere classified F32.9 Active 86079841 Problem Lobar pneumonia J18.1 Active 904074056 Problem Creatinine elevation R79.89 Active 501734374 Problem Type 2 diabetes mellitus with diabetic neuropathy, without long-term current use of insulin E11.40 Active 47914585 Problem Anxiety associated with depression F41.8 Active 758507599 Problem Encounter for Zostavax administration Z23 Active 031252938 Problem Other infective otitis externa of left ear H60.392 Active 64695490 Problem Type 2 diabetes mellitus without complications E11.9 Active 484497160 Problem Morbid obesity due to excess calories E66.01 Active 359606099 Problem Mild persistent asthma without complication J45.30 Active 381405362 Problem Essential hypertension I10 Active 75502127 Problem DM neuro manif type II E11.40 Active 58678196 Problem DM neuro manif type II E11.49 Active 34709735 Problem Other hammer toe(s) (acquired), left foot M20.42 Active 51359998 Problem Anxiety disorder, unspecified F41.9 Active 918886818 Problem Hyperlipidemia, unspecified hyperlipidemia type E78.5 Active 62012458 Problem Other hammer toe(s) (acquired), right foot M20.41 Active 456170404 ALLERGIES No Information SOCIAL HISTORY Never Assessed PLAN OF CARE VITAL SIGNS MEDICATIONS Medication Instructions Dosage Frequency Start Date End Date Duration Status Ativan 0.5 MG Orally Two times per day, must last 30 days 1 tablet as needed for severe anxiety Active RESULTS No Results PROCEDURES No Known procedures IMMUNIZATIONS No Known Immunizations MEDICAL (GENERAL) HISTORY Type Description Date Medical [...] of hips, osteopenia to spine Medical History 02/2016 DM foot exam Surgical History appendectomy 1977 Surgical History hysterectomy [...]
--- OUTSIDE RECORDS SUMMARY | 2017-11-22 09:42 | XMS REPORT ---
Author SAUD Lugo [facility] Address Unknown Phone Unavailable Care Team Providers Care Firefighting Equipment Specialist Name Role Phone SAUD DUTTA CP Unavailable [...] Instructions Start Date End Date Status Dosage Flovent HFA [facility] 80893621655 110 MCG/ACT 2 puffs Twice a day Inhalation 30 days Bacitracin [facility] [address]-53 500 UNIT/GM Externally-to left external ear canal, use cotton tip applicator 2 times a day Jun 12, 2015 1 application to affected area Crestor [facility] 94087172794 40 MG Orally Once a day 1 tablet Metoprolol Tartrate [facility] [address]-46 25 MG Orally Twice a day TAKE TWO TABLETS BY MOUTH DAILY IN THE MORNING, AND ONE TABLET BY MOUTH DAILY IN THE EVENING. Zanaflex [facility] [address]-25 4 MG Orally every 8 hrs not defined Lyrica [facility] [address]-83 100 MG Orally Twice a day 1 capsule Bactrim DS [facility] [address]-20 800-160 MG Orally Twice a day Jun 12, 2015 Jun 22, 2015 1 tablet Lisinopril [facility] [address]-22 2.5 MG Orally Once a day Mar 25, 2015 1 tablet Metformin HCl [facility] 15107203005 1000 MG Orally Twice a day 1 tablet with meals Vitamin D [facility] [address]-91 1000 UNIT Orally Once a day 1 capsule Gabapentin [facility] [address]-50 800 MG Orally Four times a day not defined Colace [facility] [address]-45 100 MG Orally Two times per day PRN 1 capsule as needed Lovenox [facility] [address]-88 Injection Once a day not defined nexium ND 0 40 mg 2 times per day 1 Claritin [facility] [address]-42 10 MG Orally Once a day 1 tablet Zoloft NDC 0 100 mg Oral once a day 1.5 Ativan [facility] [address]-78 0.5 MG Orally Two times per day 1 tablet as needed Sertraline HCl [facility] [address]-18 100 MG Orally Once a day 1 1/2 tablets Fosamax [facility] 08625686555 70 MG Orally once a week Take 1 tablet by Oral route 1 time per week Hydrochlorothiazide [facility] [address]-21 25 MG Orally Once a day 1 tablet ProAir HFA [facility] [address]-25 108 (90 Base) MCG/ACT Inhalation PRN 2 puffs as needed [place] [facility] [address]-63 7.5-325 MG Orally every 6 hrs 1 tablet as needed Carafate [facility] [address]-26 1 GM Orally Four times a day 1 tablet on an empty stomach E-Z Spacer [facility] [address]-44 Two times a day not defined Fish Oil [facility] [address]-82 500 MG Orally Once a day 1 capsule Procedures Procedure Coding System Code Date Office Visit, Est Pt., Level 3 CPT-4 02377 Jun 12, 2015 [facility] VISIT ESTABLISHED PATIENT CPT-4 G0467 Jun 12, 2015 Vital Signs Date/Time: Jun 12, 2015 Temperature 98.6 F Weight 240.2 lbs Height 65 in BMI 39.97 Index Blood Pressure Diastolic 80 mmHg Blood Pressure Systolic 128 mmHg Cardiac Monitoring Heart Rate 79 bpm Results No Known Results Summary Purpose eClinicalWorks Submission
--- OUTSIDE RECORDS SUMMARY | 2017-11-22 09:42 | XMS REPORT ---
Author Author JENNIFER IGLESIAS [facility] Address [address] [place] [address] Care Team Providers Care Business Law Professor Name Role Phone JENNIFER IGLESIAS Unavailable PROBLEMS Type Condition ICD9-CM Code [id number] Code Onset Dates Condition Status SNOMED Code Problem Osteopenia M85.80 Active 838430714 Problem Gynecologic exam normal Z01.419 Active 278498116 Problem Breast cancer screening Z12.39 Active 912929343 Problem Contusion of right foot, initial encounter S90.31XA Active 65072815 Problem Abscess, ear canal H60.00 Active 90061227 Problem High risk medication use Z79.899 Active 886621897992985 Problem Diabetes mellitus, controlled E11.9 Active 383275760 Problem Depressive disorder, not elsewhere classified F32.9 Active 80671565 Problem Lobar pneumonia J18.1 Active 386408253 Problem Creatinine elevation R79.89 Active 505919936 Problem Type 2 diabetes mellitus with diabetic neuropathy, without long-term current use of insulin E11.40 Active 77548949 Problem Anxiety associated with depression F41.8 Active 948903921 Problem Encounter for Zostavax administration Z23 Active 315790389 Problem Other infective otitis externa of left ear H60.392 Active 10896308 Problem Type 2 diabetes mellitus without complications E11.9 Active 277167365 Problem Morbid obesity due to excess calories E66.01 Active 952035116 Problem Mild persistent asthma without complication J45.30 Active 355578788 Problem Essential hypertension I10 Active 94367044 Problem DM neuro manif type II E11.40 Active 84199558 Problem DM neuro manif type II E11.49 Active 44560274 Problem Other hammer toe(s) (acquired), left foot M20.42 Active 39658550 Problem Anxiety disorder, unspecified F41.9 Active 181018499 Problem Hyperlipidemia, unspecified hyperlipidemia type E78.5 Active 59836997 Problem Other hammer toe(s) (acquired), right foot M20.41 Active 827116462 ALLERGIES Substance Reaction Event Type Date Status Ultram Unknown Drug Allergy May, Active Theophylline Unknown Drug Allergy May, Active Tegretol Unknown Drug Allergy May, Active Talacen Unknown Drug Allergy May, Active Imitrex Unknown Drug Allergy May, Active Erythromycin Unknown Drug Allergy May, Active Emcyt Unknown Drug Allergy May, Active Dilantin Unknown Drug Allergy May, Active Darvon Unknown Drug Allergy May, Active Byetta 10 MCG Pen Unknown Drug Allergy May, Active SOCIAL HISTORY No smoking Hx information available PLAN OF CARE Activity Details Follow Up 3 Months Reason:DM VITAL SIGNS Height 65 in 2016-05-17 Weight 247.7 lbs 2016-05-17 Temperature 97.4 degrees Fahrenheit 2016-05-17 Heart Rate 76 bpm 2016-05-17 Respiratory Rate 18 2016-05-17 BMI 41.21 kg/m2 2016-05-17 Blood pressure systolic 124 mmHg 2016-05-17 Blood pressure diastolic 80 mmHg 2016-05-17 MEDICATIONS Medication Instructions Dosage Frequency Start Date End Date Duration Status Hydrochlorothiazide 25 TAKE 1 TABLET BY MOUTH EVERY DAY 30 Active Crestor 40 mg Orally Once a day 1 tablet 24h Active Metformin HCl 1000 MG Orally Twice a day 1 tablet with meals 12h 30 Active Metoprolol Tartrate 25 MG Orally Twice a day TAKE TWO TABLETS BY MOUTH DAILY IN THE MORNING, AND ONE TABLET BY MOUTH DAILY IN THE EVENING. 12h Active Lyrica 100 MG Orally Twice a day 1 capsule 12h Active Nebulizer 1 by inhalation route 4 times a day 3 mls 6h Active nexium 40 mg Orally 2 times per day 1 capsule Active Gabapentin 800 MG Orally Four times a day 6h Active Ventolin HFA 108 (90 Base) MCG/ACT Inhalation 4 times a day as needed for shortness of breath/cough 2 puffs Jul, Active Carafate 1 GM Orally Four times a day 1 tablet on an empty stomach 6h Active Colace 100 MG Orally Two times per day PRN 1 capsule as needed Active Claritin 10 MG Orally Once a day 1 tablet 24h Active Sertraline HCl 100 MG Orally Once a day 1 1/2 tablets 24h Active Baclofen 10 MG/20ML Active Nexium 40 TAKE ONE CAPSULE BY MOUTH TWICE DAILY 30 Active Calcium + D 315-200 MG-UNIT Orally Twice a day 1 tablet with meals 12h Active Fish Oil 500 MG Orally Once a day 3 capsule 24h Active Alendronate Sodium 70 TAKE 1 TABLET BY MOUTH ONCE WEEKLY 4 Active Ipratropium-Albuterol 0.5-2.5 (3) MG/3ML Inhalation every 6 hrs 3 ml 6h Active Lisinopril 2.5 MG Orally Once a day 1 tablet 24h 18 Mar, 2015 Active Ativan 0.5 MG Orally Two times per day 1 tablet as needed for severe anxiety Active Flovent HFA 110 Inhalation Twice a day rinse mouth after use 2 puffs Active [place] 7.5-325 MG Orally 3 times a day 1 tablet as needed 8h Active E-Z Spacer 12h Active RESULTS Name Result Date Reference Range BACTERIAL VAGINOSIS (IN HOUSE) 2016-05-17 RESULTS NEG Control POS Lot # [id number] Exp date 10/2016 Mammogram, Bilateral Screening 2016-05-19 PAP TEST W/ HPV REGARDLESS 2016-05-17 DIAGNOSIS: Specimen adequacy: Clinician provided ICD10: Performed by: QC reviewed by: . . Note: HPV, high-risk Negative Negative PDF Report 2016-05-17 PDF Report1 [facility] URINE PROTEIN TO CREATININE RATIO 2016-05-17 Creatinine, Urine 69.6 Not Estab. Protein,Total,Urine 13.0 Not Estab. Protein/Creat Ratio 187 0-200 UA W/ MICROSCOPY 2016-05-17 Specific [place] 1.015 1.005-1.030 pH 7.5 5.0-7.5 Urine-Color Yellow Yellow Appearance Clear Clear WBC Esterase 2+ Negative Protein Negative Negative/Trace Glucose Negative Negative Ketones Negative Negative Occult Blood Negative Negative Bilirubin Negative Negative Urobilinogen,Semi-Qn 1.0 0.2-1.0 Nitrite, Urine Negative Negative Microscopic Examination See below: WBC 11-30 0 - 5 RBC 0-2 0 - 2 Epithelial Cells (non renal) 0-10 0 - 10 Mucus Threads Present Not Estab. Bacteria Few None seen/Few CULTURE, URINE 2016-05-17 Urine Culture, Routine Final report Result 1 RENAL PROFILE 2016-05-17 Glucose, Serum 87 65-99 BUN 14 6-24 Creatinine, Serum 0.81 0.57-1.00 eGFR If NonAfricn Am 81 >59 eGFR If Africn Am 94 >59 BUN/Creatinine Ratio 17 9-23 Sodium, Serum 140 134-144 Potassium, Serum 4.3 3.5-5.2 Chloride, Serum 97 96-106 Carbon Dioxide, Total 25 18-29 Calcium, Serum 9.4 8.7-10.2 Phosphorus, Serum 3.9 2.5-4.5 Albumin, Serum 4.6 3.5-5.5 PROCEDURES Procedure Date Ordered Related Diagnosis Body Site SPECIMEN HANDLING May 17, 2016 LAB NOT BILLED BY [facility] May 17, 2016 Office Visit, Est Pt., Level 4 May 17, 2016 [facility] VISIT ESTABLISHED PATIENT May 17, 2016 VENIPUNCT, ROUTINE* May 17, 2016 AMOS VAG, DNA, DIR PROBE May 17, 2016 IMMUNIZATIONS No Known Immunizations
--- OUTSIDE RECORDS SUMMARY | 2017-11-22 09:42 | XMS REPORT ---
Author Author JENNIFER IGLESIAS [facility] Address [address] [place] [address] Care Team Providers Care Bi Consultant Name Role Phone JENNIFER IGLESIAS Unavailable PROBLEMS Type Condition ICD9-CM Code [id number] Code Onset Dates Condition Status SNOMED Code Problem Osteopenia M85.80 Active 512475227 Problem Gynecologic exam normal Z01.419 Active 121990552 Problem Breast cancer screening Z12.39 Active 421967053 Problem Contusion of right foot, initial encounter S90.31XA Active 54272050 Problem Abscess, ear canal H60.00 Active 32395041 Problem High risk medication use Z79.899 Active 847229558522175 Problem Diabetes mellitus, controlled E11.9 Active 016297867 Problem Depressive disorder, not elsewhere classified F32.9 Active 87681670 Problem Lobar pneumonia J18.1 Active 368835703 Problem Creatinine elevation R79.89 Active 277689864 Problem Type 2 diabetes mellitus with diabetic neuropathy, without long-term current use of insulin E11.40 Active 36927307 Problem Anxiety associated with depression F41.8 Active 312732935 Problem Encounter for Zostavax administration Z23 Active 772894132 Problem Other infective otitis externa of left ear H60.392 Active 57828093 Problem Type 2 diabetes mellitus without complications E11.9 Active 976642062 Problem Morbid obesity due to excess calories E66.01 Active 823301269 Problem Mild persistent asthma without complication J45.30 Active 850871801 Problem Essential hypertension I10 Active 43867405 Problem DM neuro manif type II E11.40 Active 55999440 Problem DM neuro manif type II E11.49 Active 76115252 Problem Other hammer toe(s) (acquired), left foot M20.42 Active 68113483 Problem Anxiety disorder, unspecified F41.9 Active 041931371 Problem Hyperlipidemia, unspecified hyperlipidemia type E78.5 Active 42559376 Problem Other hammer toe(s) (acquired), right foot M20.41 Active 633154126 ALLERGIES Unknown Allergies SOCIAL HISTORY No smoking Hx information available PLAN OF CARE VITAL SIGNS MEDICATIONS Unknown Medications RESULTS No Results PROCEDURES No Known procedures IMMUNIZATIONS No Known Immunizations
--- OUTSIDE RECORDS SUMMARY | 2017-11-22 09:42 | XMS REPORT ---
Author JENNIFER Kaba Organization [employer] Address Unknown Phone Unavailable Care Team Providers Care Director Of Enrollment Name Role Phone JENNIFER IGLESIAS CP Unavailable Allergies No Known Allergies Problems Problem Type Condition Code Onset Dates Condition Status Problem Anxiety disorder, unspecified F41.9 Active Problem Depressive disorder, not elsewhere classified F32.9 Active Problem Diabetes mellitus, controlled E11.9 Active Problem DM neuro manif type II E11.40 Active Medications Medication Code System Code Instructions Start Date End Date Status Dosage Metoprolol Tartrate [facility] [address]-32 25 MG Orally Twice a day TAKE TWO TABLETS BY MOUTH DAILY IN THE MORNING, AND ONE TABLET BY MOUTH DAILY IN THE EVENING. Sertraline HCl [facility] [address]-10 100 MG Orally Once a day 1 1/2 tablets Results No Known Results Summary Purpose [employer] Submission
--- OUTSIDE RECORDS SUMMARY | 2017-11-22 09:43 | XMS REPORT ---
Author Author TRAE ELZA Organization [facility] Address [address] [place] [address] Care Team Providers Care Rating Examiner Name Role Phone ELZA LARKIN Unavailable PROBLEMS Type Condition ICD9-CM Code GYB09-LS Code Onset Dates Condition Status SNOMED Code Problem Osteopenia M85.80 Active 081535101 Problem Gynecologic exam normal Z01.419 Active 058822498 Problem Breast cancer screening Z12.39 Active 869283721 Problem Contusion of right foot, initial encounter S90.31XA Active 40246949 Problem Abscess, ear canal H60.00 Active 73620063 Problem High risk medication use Z79.899 Active 807467624237539 Problem Diabetes mellitus, controlled E11.9 Active 007805786 Problem Depressive disorder, not elsewhere classified F32.9 Active 64748759 Problem Lobar pneumonia J18.1 Active 217349849 Problem Creatinine elevation R79.89 Active 943674325 Problem Type 2 diabetes mellitus with diabetic neuropathy, without long-term current use of insulin E11.40 Active 99238358 Problem Anxiety associated with depression F41.8 Active 977622691 Problem Encounter for Zostavax administration Z23 Active 452088172 Problem Other infective otitis externa of left ear H60.392 Active 44766059 Problem Type 2 diabetes mellitus without complications E11.9 Active 521161254 Problem Morbid obesity due to excess calories E66.01 Active 927070817 Problem Mild persistent asthma without complication J45.30 Active 063405585 Problem Essential hypertension I10 Active 71474729 Problem DM neuro manif type II E11.40 Active 98532707 Problem DM neuro manif type II E11.49 Active 73122451 Problem Other hammer toe(s) (acquired), left foot M20.42 Active 09475336 Problem Anxiety disorder, unspecified F41.9 Active 111719453 Problem Hyperlipidemia, unspecified hyperlipidemia type E78.5 Active 79474846 Problem Other hammer toe(s) (acquired), right foot M20.41 Active 077060472 ALLERGIES No Information SOCIAL HISTORY Never Assessed PLAN OF CARE Activity Details Follow Up 6 Weeks Reason: VITAL SIGNS Height 65 in 2016-06-03 Blood pressure systolic 124 mmHg 2016-06-03 Blood pressure diastolic 78 mmHg 2016-06-03 MEDICATIONS Unknown Medications RESULTS No Results PROCEDURES Procedure Date Ordered Result Body Site DEBRIDE NAIL, 6 OR MORE Jun 03, 2016 [facility] VISIT ESTABLISHED PATIENT Jun 03, 2016 IMMUNIZATIONS No Known Immunizations MEDICAL (GENERAL) HISTORY [...]
--- OUTSIDE RECORDS SUMMARY | 2017-11-22 09:43 | XMS REPORT ---
Author Author JENNIFER IGLESIAS [facility] Address [address] [place] [address] Care Team Providers Care Carbon Brushes Assembler Name Role Phone JENNIFER IGLESIAS Unavailable PROBLEMS Type Condition ICD9-CM Code ACK12-ZE Code Onset Dates Condition Status SNOMED Code Problem Osteopenia M85.80 Active 130253713 Problem Gynecologic exam normal Z01.419 Active 268132899 Problem Breast cancer screening Z12.39 Active 545105376 Problem Contusion of right foot, initial encounter S90.31XA Active 38493036 Problem Abscess, ear canal H60.00 Active 54578415 Problem High risk medication use Z79.899 Active 609262480683810 Problem Diabetes mellitus, controlled E11.9 Active 451892639 Problem Depressive disorder, not elsewhere classified F32.9 Active 55386152 Problem Lobar pneumonia J18.1 Active 662396019 Problem Creatinine elevation R79.89 Active 457478208 Problem Type 2 diabetes mellitus with diabetic neuropathy, without long-term current use of insulin E11.40 Active 85176862 Problem Anxiety associated with depression F41.8 Active 277224945 Problem Encounter for Zostavax administration Z23 Active 430609881 Problem Other infective otitis externa of left ear H60.392 Active 40169770 Problem Type 2 diabetes mellitus without complications E11.9 Active 498415697 Problem Morbid obesity due to excess calories E66.01 Active 606406193 Problem Mild persistent asthma without complication J45.30 Active 039660239 Problem Essential hypertension I10 Active 17964639 Problem DM neuro manif type II E11.40 Active 37534666 Problem DM neuro manif type II E11.49 Active 63281439 Problem Other hammer toe(s) (acquired), left foot M20.42 Active 75745471 Problem Anxiety disorder, unspecified F41.9 Active 738850396 Problem Hyperlipidemia, unspecified hyperlipidemia type E78.5 Active 49178932 Problem Other hammer toe(s) (acquired), right foot M20.41 Active 338275458 ALLERGIES No Information SOCIAL HISTORY Never Assessed PLAN OF CARE VITAL SIGNS MEDICATIONS Medication Instructions Dosage Frequency Start Date End Date Duration Status Nebulizer/Tubing/Mouthpiece 1 kit as directed Jun, Active RESULTS No Results PROCEDURES No Known [...]
--- OUTSIDE RECORDS SUMMARY | 2017-11-22 09:43 | XMS REPORT ---
Author Author JEN LU [facility] [employer] Address Unknown Phone Unavailable Care Team Providers Care Spring Clipper Name Role Phone JEN LU Unavailable Allergies No Known Allergies Problems Problem Type Condition ICD-9 Code Onset Dates Condition Status Problem Obstructive sleep apnea (adult) (pediatric) 327.23 Active Problem Nausea alone 787.02 Active Problem Unspecified sleep disturbance 780.50 Active Problem Unspecified transient cerebral ischemia 435.9 Active Problem Coronary atherosclerosis of unspecified type of vessel, [place] or graft 414.00 Active Problem Anxiety disorder, unspecified 300.00 Active Problem Unspecified gastritis and gastroduodenitis without mention of hemorrhage 535.50 Active Problem Morbid obesity 278.01 Active Problem Other general symptoms 780.99 Active Problem Garner's esophagus 530.85 Active Assessment Anxiety disorder, unspecified 300.00 Active Problem Encounter for long-term (current) use of other medications V58.69 Active Problem Other chronic pain 338.29 Active Assessment Depressive disorder, not elsewhere classified 311 Active Problem Shortness of breath 786.05 Active Medications No Known Medications Procedures Procedure Coding System Code Date Psychotherapy, patient &/family, 45 minutes, established patient CPT-4 76098 Jan 15, 2015 Results No Known Results Summary Purpose [employer] Submission
--- OUTSIDE RECORDS SUMMARY | 2017-11-22 09:44 | XMS REPORT ---
Author Author KELSIE JENNIFER [facility] Address [address] [place] [address] Care Team Providers Care Complex Care Nurse Name Role Phone JENNIFER IGLESIAS Unavailable PROBLEMS Type Condition ICD9-CM Code QBV66-BB Code Onset Dates Condition Status SNOMED Code Problem Depressive disorder, not elsewhere classified F32.9 Active 34491093 Problem DM neuro manif type II E11.40 Active 32252018 Problem Diabetes mellitus, controlled E11.9 Active 025506338 Problem Anxiety disorder, unspecified F41.9 Active 979945315 Problem Abscess, ear canal H60.00 Active 50740517 Problem Type 2 diabetes mellitus without complications E11.9 Active 184904351 Problem Encounter for Zostavax administration Z23 Active 940990927 Problem Morbid obesity due to excess calories E66.01 Active 814883259 Problem Other infective otitis externa of left ear H60.392 Active 94604807 Problem Contusion of right foot, initial encounter S90.31XA Active 00697215 Problem DM neuro manif type II E11.49 Active 39270601 Problem High risk medication use Z79.899 Active 030125514204626 Problem Hyperlipidemia, unspecified hyperlipidemia type E78.5 Active 97594896 Problem Breast cancer screening Z12.31 Active 427227271 Problem Personal history of nicotine dependence Z87.891 Active 42482732 Problem Medicare annual wellness visit, initial Z00.00 Active 665750999 Problem Strep throat J02.0 Active 20024978 Problem Other microscopic hematuria R31.29 Active 925788912 Problem Other hammer toe(s) (acquired), left foot M20.42 Active 01858849 Problem Mild persistent asthma without complication J45.30 Active 003876264 Problem Essential hypertension I10 Active 48856233 Problem Pain in right ankle and joints of right foot M25.571 Active 233049949 Problem Pain in left ankle and joints of left foot M25.572 Active 849549761 Problem BMI 40.0-44.9, adult Z68.41 Active 676517168 Problem Other chronic pain G89.29 Active 21897348 Problem Gynecologic exam normal Z01.419 Active 706142201 Problem Breast cancer screening Z12.39 Active 131928939 Problem Other hammer toe(s) (acquired), right foot M20.41 Active 391868324 Problem Osteopenia M85.80 Active 653551537 Problem Anxiety associated with depression F41.8 Active 448435839 Problem Type 2 diabetes mellitus with diabetic neuropathy, without long-term current use of insulin E11.40 Active 95941024 Problem Creatinine elevation R79.89 Active 679243236 Problem Lobar pneumonia J18.1 Active 495258753 ALLERGIES No Information ENCOUNTERS Encounter Location Date Diagnosis [place] [id number] [place] [address] 6331 Aug, [place] [address] [address] Aug, [facility] [address] [id number] [place] [id number] Jul, Strep throat J02.0 ; Other microscopic hematuria R31.29 and BMI 40.0-44.9, adult Z68.41 [facility] [address] [id number], [place] [address] Jul, [email or web address] [address] [id number], [place] [address]0124 Jun, [facility] [address] [id number], [place] [address] Jun, [facility] [address] [id number], [place] [address] Jun, 2018 Type 2 diabetes mellitus without complications E11.9 ; BMI 40.0- 44.9, adult Z68.41 ; Pain in right ankle and joints of right foot M25.571 ; Pain in left ankle and joints of left foot M25.572 and Other chronic pain G89.29 [place] [id number] [place] [address]- 7326 May, Onychomycosis B35.1 ; Onychocryptosis L60.0 and DM neuro manif type II E11.40 [facility] [address] [id number], [place] [address] May, [facility] [address] [id number], [place] [address]2614[address] May, [facility] [address] [place] [address] AVE [id number], [place] [address]245[address]195 Apr, Medicare annual wellness visit, initial Z00.00 ; Personal history of nicotine dependence Z87.891 ; Breast cancer screening Z12.31 and BMI 40.0- 44.9, adult Z68.41 [facility] [address] [id number], [place] [address] Apr, Anxiety disorder, unspecified F41.9 [facility] [address] [id number], [place] [address] Feb, [facility] [address] [id number] [address] Feb, Onychomycosis B35.1 and DM neuro manif type II E11.40 [facility] [address] [place] [address] AVE [id number], [place] [id number] Feb, Type 2 diabetes mellitus without complications E11.9 and Encounter for immunization Z23 [facility] [address] [employer] [place] [address] AVE [id number], [place] [address]75231586 Jan, Anxiety disorder, unspecified F41.9 [facility] [address] [employer] [place], [place] [address] [id number], [place] [address]3593 Dec, [facility] [address]00565[address] [address] Nov, Right foot sprain, initial encounter S93.601A ; Onychomycosis B35.1 and DM neuro manif type II E11.49 [facility] BUT[address]ERROSS [employer] [place] [address] AVE [id number], [place] [address] Nov, Type 2 diabetes mellitus without complications E11.9 [facility] [address] [id number], [place] [address]64[address] Nov, [facility] [address] [id number], [place] [address] Nov, Type 2 diabetes mellitus without complications E11.9 [facility] [address] [id number], [place] [address] Nov, [facility] Formerly named [facility] A[address] [id number], [place] [address]472 Nov, [facility] [address] [id number], [place] [address] Nov, Type 2 diabetes mellitus without complications E11.9 ; Contusion of right foot, initial encounter S90.31XA and High risk medication use Z79.899 [facility] [address] [id number], [place] [address] Oct, High risk medication use Z79.899 [facility]ITALSEViamet PharmaceuticalsROSS[address] [id number], [place] [address] Oct, Anxiety disorder, unspecified F41.9 [facility] [address] [id number], [place] [address] September, Type 2 diabetes mellitus with diabetic neuropathy, without long- term current use of insulin E11.40 [facility] [address] [facility] [id number], [place] 35110473- [address] Aug, Onychomycosis B35.1 ; DM neuro manif type II E11.40 and Other hammer toe(s) (acquired), right foot M20.41 [facility] [address] [id number], [place] [address] Aug, Type 2 diabetes mellitus without complications E11.9 ; Morbid obesity due to excess calories E66.01 and Encounter for immunization Z23 [facility] [address] [place] [address] AVE [id number], [place] [id number] Aug, [facility] [address] [id number], [place] [address] Aug, Anxiety associated with depression F41.8 [facility] [address] [id number], [place] [address] Jul, Anxiety disorder, unspecified F41.9 [facility] [address] [id number], [place] [address] Jun, Anxiety associated with depression F41.8 [facility] [address] [id number], [place] [address]750[address] Jun, Lobar pneumonia J18.1 [facility] Formerly named [facility] [address] [id number], [place] [id number] Jun, Pneumonia of left lower lobe due to infectious organism J18.1 [facility] [address] [id number], [place] [id number] Jun, [facility] ROSS [address] [place] [address] AVE [id number], [place] 738668009 Jun, [facility] [address] [facility] [id number], [place] [address]4421653- [address] May, Onychomycosis B35.1 ; Other hammer toe(s) (acquired), right foot M20.41 ; Other hammer toe(s) (acquired), left foot M20.42 and DM neuro manif type II E11.40 [facility] [address] [address] [id number], [place] [address]7089481 May, [facility] [address] [id number], [place] [id number] May, [facility] [address] [id number], [place] [address]57[address]1657 May, [facility] [address] [id number], [place] [address] May, [facility] VANDA[address] [id number], [place] [address] May, Gynecologic exam normal Z01.419 ; Breast cancer screening Z12.39 and Creatinine elevation R79.89 [facility] [address] [id number], [place] [address]37735358 Apr, [facility] [address] [id number], [place] [address] Apr, Creatinine elevation R79.89 [facility] [id number] [place] [address] [id number] Apr, DM neuro manif type II E11.40 and Osteopenia M85.80 [facility] [id number] [place] [address]362- 3081 Feb, Onychomycosis B35.1 and DM neuro manif type II E11.49 [facility] [address] [place] [address] AVE [id number], [place] [id number] Feb, [facility] [address] [place] [address] [id number] [place] [address] [id number] Jan, Mild persistent asthma without complication J45.30 ; Anxiety disorder, unspecified F41.9 and Essential hypertension I10 [facility] [address] [address]- [address] Jan, Anxiety disorder, unspecified F41.9 and Depressive disorder , not elsewhere classified F32.9 [facility] [id number] [place] [address] 04378- 9717 Dec, Anxiety disorder, unspecified F41.9 and Depressive disorder , not elsewhere classified F32.9 [facility] [id number] [place] [address]879 -3178 Dec, Left elbow pain M25.522 [facility] [address] [address]- 6642 Dec, Anxiety disorder, unspecified F41.9 and Depressive disorder , not elsewhere classified F32.9 [facility] [id number] [place] [address] 78350- 7387 Nov, Anxiety disorder, unspecified F41.9 and Depressive disorder , not elsewhere classified F32.9 [place] [address]00565100[place] [address]- 8178 Nov, Anxiety disorder, unspecified F41.9 and Depressive disorder , not elsewhere classified F32.[address] [id number], [place] 112999195 Oct, Diabetes mellitus, controlled E11.9 ; Hyperlipidemia, unspecified hyperlipidemia type E78.5 ; Essential hypertension I10 and Mild persistent asthma without complication J45.30 [place] [id number] [place] [address] 97876- 3169 Oct, Anxiety disorder, unspecified F41.9 and Depressive disorder , not elsewhere classified F32.9 [place] [address] [place] [address] 30368- 0969 September, Anxiety disorder, unspecified F41.9 and Depressive disorder , not elsewhere classified F32.9 [place] [address]00565100[place], [place] [address]- 2570 Aug, Onychomycosis B35.1 and DM neuro manif type II E11.[address] [id number], [place] 905295832 Aug, [place] [address]65100[place], [place] [address]- 4988 Aug, Anxiety disorder, unspecified F41.9 and Depressive disorder , not elsewhere classified F32.[address] [id number], [place] 155216269 Jul, Type 2 diabetes mellitus without complications E11.9 ; Encounter for Zostavax administration Z23 ; Morbid obesity due to excess calories E66.01 and Other infective otitis externa of left ear H60.[address] [id number], [place] 800437966 Jul, [place] [address] [place] [address] 65923- 4629 Jul, [facility] [address] [facility] [id number], [place] [address]- 3384 Jul, [facility] [address] [id number], [place] 134305052 Jun, [facility] [address] [facility] [id number], [place] [address]- 6542 Jun, Anxiety disorder, unspecified F41.9 and Depressive disorder , not elsewhere classified F32.9 [facility] [address] [id number], [place] 828646769 Jun, Abscess, ear canal H60.00 [facility] [address] [id number], [place] 014411619 Jun, Abscess, ear canal H60.00 [facility] [address] [id number], [place] 525304944 Jun, [facility] [address] [facility] [id number], [place] 518917- 8175 May, Anxiety disorder, unspecified F41.9 and Depressive disorder , not elsewhere classified F32.9 [facility] [address] [id number], [place] 410896783 Apr, Diabetes mellitus, controlled E11.9 and Breast cancer screening Z12.39 [facility] [address] [address] [id number], [place] 562127935 Apr, Diabetes mellitus, controlled E11.9 ; Breast cancer screening Z12.39 and Morbid obesity due to excess calories E66.01 [facility] [address] [facility] [id number], [place] [address]- 8409 Apr, Anxiety disorder, unspecified F41.9 and Depressive disorder , not elsewhere classified F32.9 [facility] [address] [id number], [place] 636165042 Mar, [facility] [address] [facility] [id number][place] [address]- 4253 Mar, Encounter for immunization Z23 [facility] [address]00565100[place] [address]- 5355 Mar, Anxiety disorder, unspecified F41.9 and Depressive disorder , not elsewhere classified F32.9 [place] [address]00565100[place], [place] [address]- 8658 Feb, Foot ulcer, right L97.519 and DM neuro manif type II E11.40 [place] [address]00565100[place], [place] [address]- 4058 Jan, Anxiety disorder, unspecified 300.00 and Depressive disorder , not elsewhere classified [address] [place] [address]00565100[place] [address] Jan, [address] [place] [address] 56229- 0951 Jan, Cellulitis of right foot 682.7 ; Onychomycosis 110.1 ; Neuropathy 355.9 and Foot ulcer 707.15 [address]00565100[place], [place] [address]- 5176 Jan, Anxiety disorder, unspecified 300.00 and Depressive disorder , not elsewhere classified [address] [id number], [place] 759515247 Jan, Anxiety disorder, unspecified 300.00 ; Shortness of breath 786.05 and Coronary atherosclerosis of unspecified type of vessel, [place] or graft 414.00 [place] [address] [id number] [address]- 8580 Dec, Anxiety disorder, unspecified 300.00 and Depressive disorder , not elsewhere classified [id number] [place] [address] 20374- 9731 Dec, Anxiety disorder, unspecified 300.00 and Depressive disorder , not elsewhere classified 311 [facility] [address] [id number], [place] [id number] Nov, [place] [address] [id number] 6000[place]- 2626 Nov, Anxiety disorder, unspecified 300.00 and Depressive disorder , not elsewhere classified [address] [id number], [place] 884997321 Nov, Shortness of breath 786.05 and Morbid obesity 278.01 [place] [address]00565100[place], [place] [address]- 1771 Nov, Anxiety disorder, unspecified 300.00 and Depressive disorder , not elsewhere classified [address] [id number], [place] 888257192 Oct, Asthma, moderate persistent 493.90 [place] [address] [id number], [place] 35738683- 2711 Oct, Anxiety disorder, unspecified 300.00 and Depressive disorder , not elsewhere classified [address] [place] [address]00565100[place], [place] [address]- 4808 September, Hammertoe 735.4 ; Onychomycosis 110.1 and Type I diabetes mellitus with neurological manifestations 250.[address] [id number], [place] 567925065 September, [place] [address] [id number], [place] [address]- 9145 September, Anxiety disorder, unspecified 300.00 and Depressive disorder , not elsewhere classified [address] [id number], [place] [id number] September, Diabetes type 2, controlled 250.00 ; Asthma, mild persistent 493.90 and Dermatitis, contact 692.[address] [id number], [place] 307672827 September, [facility] [address] [facility] [id number], [place] 265289- 5527 September, Anxiety state, unspecified 300.00 and Depressive disorder, not elsewhere classified 311 [facility] [address] [id number] [place] [address]- 4141 14 Aug, 2014 [facility] [place] [facility] [address] [id number] [place] [address]- 2622 13 Aug, 2014 [facility] [place] [facility] [address] [id number] [place] [address]- 5546 30 Jul, 2014 [facility] [place] [facility] [address] [id number] [place] [address]- 1811 30 Jul, 2014 [facility] [place] [facility] [address] [id number] [place] [address]- 5655 Jul, [facility] [place] [facility] [address] [id number] [place] [address]- 7565 Jul, [facility] [place] [facility] [address] [facility] [id number] [place] [address]- 3150 Jul, [facility] [place] [facility] [address] [id number] [place] [address]- 8262 Jul, [facility] [place] [facility] [address] [id number] [place] [address]- 9880 Jul, [facility] [place] [facility] [address] [id number] [place] [address]- 4976 Jul, [facility] [place] [facility] [address] [facility] [id number] [place] [address]- 2528 Jun, [facility] [place] [facility] [address] [id number] [place] [address]- 8812 Jun, 2014 [facility] [place] [facility] [address] [id number] [place] [address]- 6060 Jun, [facility] [place] [facility] [address] [id number] [place] [address]- 6436 Jun, [facility] [place] [facility] [address] [id number] [place] [address]- 6036 Jun, [facility] [place] [facility] [address] [id number] [place] [address]- 2758 Jun, 2014 [facility] [place] [facility] [address] [id number] [place] [address]- 1426 Jun, 2014 [facility] [place] [facility] [address] [id number] [place] [address]- 5476 Jun, 2014 [facility] [place] [facility] [address] [facility] [id number] [place] [address]- 7576 Jun, 2014 [facility] [place] [facility] [address] [id number] [place] [address]- 2931 Jun, 2014 [facility] [place] [facility] [address] [id number] [place] [address]- 0212 Jun, 2014 [facility] [place] [facility] [address] [facility] [id number] [place] [address]- 5514 Jun, 2014 [facility] [place] [facility] [address] [facility] [id number] [place] [address]- 6760 Jun, [facility] [place] [facility] [address] [facility] [id number] [place] [address]- 9328 Jun, [facility] [place] [facility] [address] [facility] [id number] [place] [address]- 1239 May, [facility] [place] [facility] [address] [facility] [id number] [place] [address]- 2050 May, [facility] [place] [facility] [address] [facility] [id number] [place] [address]- 7246 May, [facility] [place] [facility] [address] [facility] [id number] [place] [address]- 4086 May, [facility] [place] [facility] [address] [facility] [id number] [place] [address]- 0920 May, [facility] [place] [facility] [address] [facility] [id number] [place] [address]- 4562 May, [facility] [place] [facility] [address] [facility] [id number] [place] [address]- 9981 May, [facility] [place] [facility] [address] [id number] [place] [address]- 4346 May, [facility] [place] [facility] [address] [id number] [place] [address]- 8348 Apr, [facility] [place] [facility] [address] [id number] [place] [address]- 3306 Apr, [facility] [place] [facility] [address] [id number] [place] [address]- 6113 Apr, [facility] [place] [facility] [address] [id number] [place] [address]- 3767 Apr, [facility] [place] [facility] [address] [id number] [place] [address]- 7966 Apr, [facility] [place] [facility] [address] [id number] [place] [address]- 9975 Apr, [facility] [place] [facility] [address] [id number] [place] [address]- 0128 Apr, [facility] [place] [facility] [address] [id number] [place] [address]- 8159 Apr, [facility] [place] [facility] [address] [id number] [place] [address]- 2184 Apr, [facility] [place] [facility] [address] [id number] [place] [address]- 1164 10 Apr, 2014 [facility] [place] [facility] [address] [id number] [place] [address]- 9667 Apr, [facility] [place] [facility] [address] [id number] [place] [address]- 2398 Apr, [facility] [place] [facility] [address] [id number] [place] [address]- 0841 Mar, [facility] [place] [facility] [address] [id number] [place] [address]- 1567 Mar, [facility] [place] [facility] [address] [id number] [place] [address]- 4527 Mar, [facility] [place] [facility] [address] [id number] [place] [address]- 2644 Mar, [facility] [place] [facility] [address] [id number] [place] [address]- 2233 Mar, [facility] [place] [facility] [address] [id number] [place] [address]- 1363 Mar, [facility] [place] [facility] [address] [id number] [place] [address]- 4904 Mar, [facility] [place] [facility] [address] [id number] [place] [address]- 6863 Mar, [facility] [place] [facility] [address] [id number] [place] [address]- 7398 Feb, [facility] [place] [facility] [address] [id number] [place] [address]- 6403 Feb, [facility] [place] [facility] [address] [id number], [place] [address]- 1397 Feb, [facility] [place] [facility] [address] [id number] [place] [address]- 0323 Feb, [facility] [place] [facility] [address] [id number], [place] [address]- 7603 Feb, [facility] [place] [facility] [address] [id number], [place] [address]- 9143 Feb, [facility] [place] [facility] [address] [id number], [place] [address] Feb, [facility] [place] [facility] [address] [id number] [place] [address] Feb, [facility] [place] [facility] [address] [id number], [place] [address] Jan, [facility] [place] [facility] [address] [id number] [place] [address] Jan, [facility] [place] [facility] [address] [id number] [place] [address] 17 Jan, 2013 [facility] [place] [facility] [address] [id number] [place] [address] 17 Jan, 2013 [facility] [place] [facility] [address] [id number] [place] [address] 16 Jan, 2013 [facility] [place] [facility] [address] [id number] [place] [address] 16 Jan, 2013 [facility] [place] [facility] [address] [id number] [place] [address] 15 Jan, 2013 [facility] [place] [facility] [address] [id number] [place] [address] 15 Jan, 2013 [facility] [place] [facility] [address] [id number] [place] [address] 15 Jan, 2013 [facility] [place] [facility] [address] [id number] [place] [address] 15 Jan, 2013 [facility] [place] [facility] [address] [id number] [place] [address] 09 Jan, 2013 [facility] [place] [facility] [address] [id number] [place] [address] 09 Jan, 2013 [facility] [place] [facility] [address] [id number] [place] [address] Dec, [facility] [place] [facility] [address] [id number] [place] [address] Dec, [facility] [place] [facility] [address] [id number] [place] [address] Dec, [facility] [place] [facility] [address] [id number] [place] [address] Dec, [facility] [place] [facility] [address] [id number] [place] [address] Nov, [facility] [place] [facility] [address] [id number] [place] [address] Nov, [facility] [place] [facility] [address] [id number] [place] [address] Nov, [facility] [place] [facility] [address] [id number] [place] [address] Nov, [facility] [place] [facility] [address] [id number] [place] [address]- [address] Oct, [facility] [place] [facility] [address] [id number] [place] [address]- [address] Oct, [facility] [place] [facility] [address] [id number] [place] [address] 8[address] Oct, [facility] [place] [facility] [address] [id number] [place] [address]- 58[address] Oct, [facility] [place] [facility] [address] [id number] [place] [address]- 3708 Oct, [facility] [place] [facility] [address] [id number] [place] [address]- 1060 Oct, [facility] [place] [facility] [address] [id number] [place] [address]- 1558 Oct, [facility] [place] [facility] [address] [id number] [place] [address]- 5383 Oct, [facility] [place] [facility] [address] [id number] [place] [address]- 0694 Oct, [facility] [place] [facility] [address] [id number] [place] [address]- 1264 Oct, [facility] [place] [facility] [address] [id number] [place] [address]- 07[address] September, [facility] [place] [facility] [address] [id number] [place] [address]- 9618 September, [facility] [place] [facility] [address] [id number] [place] [address]- 7362 September, [facility] [place] [facility] [address] [id number] [place] [address]- 4188 September, [facility] [place] [facility] [address] [id number] [place] [address]- 4572 September, [facility] [place] [facility] [address] [id number] [place] [address]- 1218 September, [facility] [place] [facility] [address] [id number] [place] [address]- 7091 September, [facility] [place] [facility] [address] [id number] [place] [address]- 5704 September, [facility] [place] [facility] [address] [id number] [place] [address]- 6408 Aug, [facility] [place] [facility] [address] [id number] [place] [address]- 7591 Aug, [facility] [place] [facility] [address] [id number] [place] [address]- 8739 Aug, [facility] [place] [facility] [address] [id number] [place] [address]- 4596 Aug, [facility] [place] [facility] [address] [id number] [place] [address]- 0611 Aug, [facility] [place] [facility] [address] [id number] [place] [address]- 8172 Aug, [facility] [place] [facility] [address] [id number] [place] [address]- 9373 Aug, [facility] [place] [facility] [address] [id number] [place] [address]- 7851 Aug, [facility] [place] [facility] [address] [id number] [place] [address] Aug, [facility] [place] [facility] [address] [id number] [place] [address] Jul, [facility] [place] [facility] [address] [id number] [place] [address] Jul, [facility] [place] [facility] [address] [id number] [place] [address]- 7521 26 Jul, 2013 [facility] [place] [facility] [address] [id number] [place] [address]- 2226 Jul, [facility] [place] [facility] [address] [id number] [place] [address]- 7866 Jul, [facility] [place] [facility] [address] [id number] [place] [address]- 2796 Jul, [facility] [place] [facility] [address] [id number] [place] [address]- 9452 Jul, [facility] [place] [facility] [address] [id number] [place] [address]- 8926 Jul, [facility] [place] [facility] [address] [id number] [place] [address]- 9055 Jul, [facility] [place] [facility] [address] [id number] [place] [address]- 3697 Jul, [facility] [address] [id number] [place] [address]- 1171 Jul, [facility] [place] [facility] [address] [id number] [place] [address]- 3495 17 Jul, 2013 [facility] [place] [facility] [address] [id number] [place] [address]- 7844 17 Jul, 2013 [facility] [place] [facility] [address] [id number] [place] [address]- 6222 Jul, [facility] [place] [facility] [address] [id number] [place] [address]- 3387 Jul, [facility] [place] [facility] [address] [id number] [place] [address]- 0506 Jul, [facility] [place] [facility] [address] [id number] [place] [address]- 2186 Jul, [facility] [place] [facility] [address] [id number] [place] [address]- 5665 Jul, [facility] [place] [facility] [address] [id number] [place] [address]- 1190 Jul, [facility] [place] [facility] [address] [id number] [place] [address]- 2762 Jul, [facility] [place] [facility] [address] [id number] [place] [address]- 6708 Jun, [facility] [place] [facility] [address] [id number] [place] [address]- 8600 Jun, [facility] [place] [facility] [address] [id number] [place] [address]- 5612 Jun, [facility] [place] [facility] [address] [id number] [place] [address]- 7840 Jun, [facility] [place] [facility] [address] [id number] [place] [address]- 1132 Jun, [facility] [place] [facility] [address] [id number] [place] [address]- 7955 Jun, [facility] [place] [facility] [address] [id number] [place] [address]- 0948 Jun, [facility] [place] [facility] [address] [id number] [place] [address]- 7029 Jun, [facility] [place] [facility] [address] [id number] [place] [address]- 9512 Jun, [facility] [place] [facility] [address] [id number] [place] [address]- 6244 Jun, [facility] [place] [facility] [address] [id number] [place] [address]- 5366 Jun, [facility] [place] [facility] [address] [id number] [place] [address]- 4326 Jun, [facility] [place] [facility] [address] [id number] [place] [address]- 4296 May, [facility] [place] [facility] [address] [id number] [place] [address]- 4385 May, [facility] [place] [facility] [address] [id number] [place] [address]- 4852 May, [facility] [place] [facility] [address] [id number] [place] [address]- 2363 May, [facility] [place] [facility] [address] [id number] [place] [address]- 6207 May, [facility] [place] [facility] [address] [id number] [place] [address]- 5992 May, [facility] [place] [facility] [address] [id number] [place] [address]- 3224 May, [facility] [place] [facility] [address] [id number] [place] [address]- 0699 May, [facility] [place] [facility] [address] [id number] [place] [address]- 7641 May, [facility] [place] [facility] [address] [id number] [place] [address]- 4251 May, [facility] [place] [facility] [address] [id number] [place] [address]- 9052 May, [facility] [place] [facility] [address] [id number] [place] [address]- 2610 May, [facility] [place] [facility] [address] [id number] [place] [address]- 9514 May, [facility] [place] [facility] [address] [id number] [place] [address]- 9309 May, [facility] [place] [facility] [address] [id number] [place] [address]- 9218 Apr, [facility] [place] [facility] [address] [id number] [place] [address]- 0283 Apr, [facility] [place] [facility] [address] [id number] [place] [address]- 1042 17 Apr, 2013 [facility] [address] [id number] [place] [address] 17 Apr, 2013 [facility] [place] [facility] [address] [id number] [place] [address]- 0706 16 Apr, 2013 [facility] [place] [facility] [address] [facility] [id number] [place] [address]- 6176 16 Apr, 2013 [facility] [place] [facility] [address] [id number] [place] [address]185 12 Apr, 2013 [facility] [place] [facility] [address] [id number] [place] [address]- 8750 Apr, [facility] [place] [facility] [address] [id number] [place] [address]- 3613 Apr, [facility] [place] [facility] [address] [id number] [place] [address]- 8456 Apr, [facility] [place] [facility] [address] [id number], [place] [address]- 7685 Apr, [facility] [place] [facility] [address] [id number], [place] [address]- 7570 Apr, [facility] [place] [facility] [address] [id number], [place] [address]- 0478 Mar, [facility] [place] [facility] [address] [id number], [place] [address]- 7922 Mar, [facility] [place] [facility] [address] [id number], [place] [address]- 7944 Mar, [facility] [place] [facility] [address] [id number], [place] [address]- 2581 Mar, [facility] [place] [facility] [address] [id number], [place] [address]- 7601 Mar, [facility] [place] [facility] [address] [id number][place] 1735 Mar, [facility] [place] [facility] [address] [id number][place] 5980 Mar, [facility] [address] [id number] [place] [address]853 Mar, [facility] [place] [facility] [address] [id number] 2426 Mar, [facility] [address] [id number], [place] [address]- 2721 Mar, [facility] [place] [facility] [address] [id number] [place] [address]- 9157 Mar, [facility] [address] [id number] [place] [address]496 Mar, [facility] [place] [facility] [address] [id number] [place] [address]- 0168 Feb, [facility] [address] [id number], [place] [address]- 7027 Feb, [facility] [address] [id number] [place] [id number] Feb, [facility] [address] [id number], [place] [address]- 4622 Feb, [facility] [place] [facility] [address] [id number], [place] [address]- 1733 Feb, [facility] [place] [facility] [address] [id number], [place] [address]- 6837 Feb, [facility] [place] [facility] [address] [id number], [place] [address]- 0893 Feb, [facility] [place] [facility] [address] [id number][place]- 9453 Feb, [facility] [place] [facility] [address] [id number] 3905 Feb, [facility] [place] [facility] [address] [id number] 4701 Feb, [facility] [place] [facility] [address] [facility] [id number], [place] [address]- 1930 Feb, [facility] [place] [facility] [address] [facility] [id number], [place] [address]- 0004 Feb, [facility] [place] [facility] [address] [facility] [id number][place] 1424 Feb, [facility] [place] [facility] [address] [facility] [id number][place] [address]- [address]63 Jan, [facility] [address] [id number] [place] [id number] Jan, [facility] [address] [id number] [place] [id number] Jan, [facility] [address] [id number] [place] [id number] Jan, [facility] [address] [id number] [place] [id number] Jan, [facility] [address] [facility] [id number][place] [address] 3593 Jan, [facility] [address] [id number] [place] [id number] Jan, [facility] [address] [facility] [id number], [place] [address]- 8869 Dec, [facility] [place] [facility] [address] [facility] [id number], [place] [address]- 7214 Dec, [facility] [place] [facility] [address] [facility] [id number][place]- 9427 Dec, [facility] [address] [id number] [place] [id number] Dec, [facility] [address] [id number] [place] [id number] Dec, [facility] [address] [id number] [place] [address] Dec, [facility] [place] [facility] [address] [facility] [id number], [place] [address]- 0540 Dec, [facility] [place] [facility] [address] [id number] [place] [address]- 2546 Dec, [facility] [address] [facility] [id number] [place] [id number] Dec, [facility] [place] [facility] [address] [facility] [id number] [place] [address]- 2546 Dec, [facility] [place] [facility] [address] [facility] [id number] [place] [address]- 5371 Nov, [facility] [place] [facility] [address] [facility] [id number] [place] [address]- 8365 Nov, [facility] [place] [facility] [address] [facility] [id number] [place] [address]- 7308 Nov, [facility] [address] [facility] [id number] [place] [id number] Nov, [facility] [address] [id number] [place] [id number] Oct, [facility] [address] [facility] [id number] [place] [id number] Oct, [facility] [place] [facility] [address] [facility] [id number], [place] [address]- 7136 Oct, [facility] [place] [facility] [address] [facility] [id number], [place] [address]- 1556 Oct, [facility] [place] [facility] [address] [facility] [id number], [place] [address]- 9686 Oct, [facility] [address] [facility] [id number] [place] [id number] Oct, [facility] [place] [facility] [address] [facility] [id number] [place] [address]- 2544 Oct, [facility] [address] [id number] [place] [id number] Oct, [facility] [address] [facility] [id number] [place] [id number] September, [facility] [place] [facility] [address] [facility] [id number] [place] [address]- 9691 September, [facility] [address] [id number] [place] [id number] September, [facility] [address] [id number] [place] [address]- 2546 September, [facility] [address] [id number] [place] [address]- 5196 September, [facility] [address] [id number] [place] [address]- 4076 September, [facility] [address] [id number] [id number] September, [facility] [address] [id number] [place] [address]- 9906 September, [facility] [address] [facility] [id number] [place] [address]- 6006 September, [facility] [address] [facility] [id number] [place] [address]- 2081 Aug, [facility] [address] [id number] [place] [id number] Aug, [facility] [address] [id number] [place] [id number] Aug, [facility] [address] [id number] [place] [address]- 0966 Aug, [facility] [place] [facility] [address] [id number] [place] [address]- 1256 Aug, [facility] [address] [id number] [place] [id number] 15 Aug, 2012 [facility] [address] [id number] [place] [id number] Aug, [facility] [place] [facility] [address] [id number] [place] [address]- 8096 Aug, [facility] [place] [facility] [address] [id number] [place] [address]- 3686 Aug, [facility] [place] [facility] [address] [facility] [id number], [place] [address]- 7466 Jul, [facility] [address] [facility] [id number] [place] [id number] Jul, [facility] [address] [facility] [id number], [place] [address]- 5244 Jul, [facility] [address] [facility] [id number], [place] [address]- 7696 Jul, [facility] [place] [facility] [address] [facility] [id number], [place] [address] 2541 Jul, [facility] [address] [facility] [id number], [place] [address]- 3236 Jul, [facility] [address] [facility] [id number], [place] [address]- 2546 Jul, [facility] [id number], [place] [address]- 7269 Jul, [facility] [address] [id number] [place] [id number] Jul, [facility] [address] [facility] [id number] [place] [id number] Jun, [facility] [address] [id number], [place] [address] 2546 Jun, [facility] [address] [id number] [place] [id number] Jun, [facility] [place] [facility] [address] [facility] [id number], [place] [address] 2546 Jun, [facility] [place] [facility] [address] [facility] [id number], [place] [address]- 2546 May, [facility] [address] [facility] [id number], [place] [address]- 0546 May, [facility] [address] [facility] [id number] [place] [id number] May, [facility] [address] [id number] [place] [id number] May, [facility] [place] [facility] [address] [id number] [place] [address]- 9928 May, [facility] [address] [id number] [place] [id number] May, [facility] [address] [id number] [place] [address]- 1786 May, [facility] [place] [facility] [address] [id number] [place] [address]- 2936 May, [facility] [address] [id number] [place] [id number] Apr, [facility] [address] [id number] [place] [id number] Apr, [facility] [address] [facility] [id number] [place]- 4329 Apr, [facility] [place] [facility] [address] [facility] [id number], [place] [address]- 7176 Apr, [facility] [place] [facility] [address] [id number], [place] [address]- 8312 Apr, [facility] [place] [facility] [address] [id number], [place] [address]- 7256 Apr, [facility] [address] [facility] [id number] [place] [id number] Apr, [facility] [place] [facility] [address] [facility] [id number], [place] [address]- 7726 Apr, [facility] [place] [facility] [address] [facility] [id number], [place] [address]- 5926 Apr, [facility] [place] [facility] [address] [id number], [place] [address]- 0290 Apr, [facility] [address] [facility] [id number] [place] [id number] Apr, [facility] [place] [facility] [address] [facility] [id number], [place] [address]- 6507 Apr, [facility] [place] [facility] [address] [id number], [place] [address]- 3551 Apr, [facility] [place] [facility] [address] [id number] [place] [address]- 7086 Apr, [facility] [place] [facility] [address] [id number] [place] [address]- 9229 Mar, [facility] [place] [facility] [address] [id number] [place] [address]- 0979 Mar, [facility] [place] [facility] [address] [id number], [place] [address]- 0924 Mar, [facility] [place] [facility] [address] [id number] [place] [address]- 1551 Mar, [facility] [address] [facility] [id number] [place] [id number] Mar, [facility] [place] [facility] [address] [facility] [id number], [place] [address]- 9729 Mar, [facility] [address] [facility] [id number] [place] [id number] Mar, [facility] [place] [facility] [address] [id number], [place] [address]- 5413 Mar, [facility] [address] [facility] [id number] [place] [id number] Feb, [facility] [place] [facility] [address] [id number], [place] [address] Feb, [facility] [place] [facility] [address] [facility] [id number], [place] [address] Feb, [facility] [place] [facility] [address] [id number], [place] [address] Feb, [facility] [place] [facility] [address] [facility] [id number], [place] [address] Jan, [facility] [address] [facility] [id number] [place] [id number] Jan, [facility] [place] [facility] [address] [facility] [id number] [place] [address] 13 Jan, 2012 [facility] [place] [facility] [address] [facility] [id number] [place] [address] Jan, [facility] [place] [facility] [address] [facility] [id number] [place] [address] 05 Jan, 2012 [facility] [address] [facility] [id number] [place] [id number] Jan, [facility] [place] [facility] [address] [facility] [id number] [place] [address] Dec, [facility] [address] [facility] [id number] [place] [id number] Dec, [facility] [place] [facility] [address] [facility] [id number], [place] [address] Dec, [facility] [place] [facility] [address] [facility] [id number], [place] [address] Dec, [facility] [place] [facility] [address] [facility] [id number], [place] [address] Nov, [facility] [place] [facility] [address] [facility] [id number], [place] [address] Nov, [facility] [place] [facility] [address] [facility] [id number], [place] [address] Nov, [facility] [address] [facility] [id number] [place] [id number] Nov, [facility] [place] [facility] [address] [facility] [id number], [place] [address] Nov, [facility] [address] [facility] [id number] [place] [id number] Nov, [facility] [place] [facility] [address] [facility] [id number] [place] [address] Nov, [facility] [place] [facility] [address] [facility] [id number], [place] [address] Nov, [facility] [place] [facility] [address] [facility] [id number], [place] [address] Nov, [facility] [place] [facility] [address] [id number], [place] [address] Oct, [facility] [place] [facility] [address] [id number], [place] [address] Oct, [facility] [address] [id number] [place] [id number] Oct, [facility] [address] [id number] [place] [id number] Oct, [facility] [address] [id number] [place] [id number] Oct, [facility] [place] [facility] [address] [id number] [place] [address] Oct, [facility] [place] [facility] [address] [facility] [id number], [place] [address] Oct, [facility] [place] [facility] [address] [facility] [id number], [place] [address] Oct, [facility] [place] [facility] [address] [facility] [id number], [place] [address] September, [facility] [place] [facility] [address] [facility] [id number], [place] [address] September, [facility] [place] [facility] [address] [facility] [id number], [place] [address] September, [facility] [place] [facility] [address] [facility] [id number], [place] [address] Aug, [facility] [place] [facility] [address] [id number], [place] [address] Aug, [facility] [place] [facility] [address] [facility] [id number] [place] [id number] Aug, [facility] [place] [facility] [address] [facility] [id number], [place] [address] 18 Aug, 2011 [facility] [place] [facility] [address] [facility] [id number][place] [id number] [address] Aug, [facility] [address] [facility] [id number] [place] [id number] Jul, [facility] [address] [id number] [place] [address] Jul, [facility] [address] [id number] [place] [address] Jun, [facility] [address] [id number] [place] [address] Jun, [facility] [address] [id number] [place] [address] Jun, [facility] [address] [id number] [place] [address] Jun, [facility] [address] [id number] [place] [address] Jun, [facility] [address] [id number], [place] [address] May, [facility] [address] [id number] [place] [address] May, [facility] [id number] [place] [address] May, [facility] [address] [id number], [place] [address] May, [facility] [place] [facility] [address] [id number], [place] [address] 16 May, 2011 [facility] [place] [facility] [address] [id number] [place] [address] May, [facility] [place] [facility] [address] [facility] [id number], [place] [address] May, [facility] [place] [facility] [address] [id number] [place] [address] May, [facility] [address] [id number] [place] [address] 27 Apr, 2011 [facility] [place] [facility] [address] [id number] [place] [address] 1252 20 Apr, 2011 [facility] [place] [facility] [address] [id number] [place] [address] 5764 16 Apr, 2011 [facility] [place] [facility] [address] [id number] [place] [address] 89[address] 15 Apr, 2011 [facility] [place] [facility] [address] [id number] [place] [address] 13 Apr, 2011 [facility] [place] [facility] [address] [id number] [place] [address] 05 Apr, 2011 [facility] [place] [facility] [address] [id number] [place] [address] 9648 22 Mar, 2011 [facility] [place] [facility] [address] [id number] [place] [address] Mar, [facility] [place] [facility] [address] [id number] [place] [address]- [address] 15 Mar, 2011 [facility] [place] [facility] [address] [id number] [place] [address] 14 Mar, 2011 [facility] [place] [facility] [address] [facility] [id number] [place] [address] 65[address] 14 Mar, 2011 [facility] [place] [facility] [address] [id number] [place] [address]- 1020 07 Mar, 2011 [facility] [place] [facility] [address] [id number] [place] [address] 7094 04 Mar, 2011 [facility] [place] [facility] [address] [id number] [place] [address] Mar, [facility] [place] [facility] [address] [id number] [place] [address] 478[address] 14 Feb, 2011 [facility] [place] [facility] [address] [id number] [place] [address]- 6813 16 Jun, 2010 [facility] [place] [facility] [address] [id number] [place] [address] 19 May, 2010 [facility] [address] [id number] [place] [address] 13 May, 2010 [facility] [address] [id number] [place] [address] 13 Apr, 2010 [facility] [place] [facility] [address] [id number] [place] [address] Apr, [facility] [address] [id number] [place] [address] Apr, [facility] [place] [facility] [address] [id number] [place] [address] Mar, [facility] [address] [id number] [place] [address] 15 Mar, 2010 [facility] [address] [id number] [place] [address] Mar, [facility] [address] [id number] [place] [address] Mar, [facility] [place] [facility] [address] [id number] [place] [address] Mar, [facility] [place] [facility] [address] [id number] [place] [address] Feb, [facility] [place] [facility] [address] [id number], [place] [address] Feb, [facility] [place] [facility] [address] [id number] [place] [address] Oct, [facility] [place] [facility] [address] [id number], [place] [address] September, [facility] [place] [facility] [address] [id number], [place] [address] Apr, [facility] [place] [facility] [address] [id number][place] [address] Apr, [facility] [id number] [address] Mar, [facility] [id number] [address] Mar, [facility] [id number] [address] Mar, [facility] [id number] [place] [address] Mar, [facility] [id number] [place] [address] Mar, [facility] [id number] [place] [address] Feb, [facility] [id number] [place] [address] Feb, [facility] [address] [address] Jan, [facility] [address] [address] Oct, IMMUNIZATIONS No Known Immunizations SOCIAL HISTORY Never Assessed REASON FOR VISIT fish oil PLAN OF CARE VITAL SIGNS MEDICATIONS Unknown [...]
--- OUTSIDE RECORDS SUMMARY | 2017-11-22 09:44 | XMS REPORT ---
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 Name Role Phone JENNIFER IGLESIAS Unavailable PROBLEMS Type Condition ICD9-CM Code [id number]-BO Code Onset Dates Condition Status SNOMED Code Problem Osteopenia M85.80 Active 005749061 Problem Gynecologic exam normal Z01.419 Active 920058452 Problem Breast cancer screening Z12.39 Active 755402336 Problem Contusion of right foot, initial encounter S90.31XA Active 48379526 Problem Abscess, ear canal H60.00 Active 14394969 Problem High risk medication use Z79.899 Active 329816858448546 Problem Diabetes mellitus, controlled E11.9 Active 909445977 Problem Depressive disorder, not elsewhere classified F32.9 Active 22058428 Problem Lobar pneumonia J18.1 Active 575341407 Problem Creatinine elevation R79.89 Active 448468228 Problem Type 2 diabetes mellitus with diabetic neuropathy, without long-term current use of insulin E11.40 Active 66962556 Problem Anxiety associated with depression F41.8 Active 555389948 Problem Encounter for Zostavax administration Z23 Active 430909948 Problem Other infective otitis externa of left ear H60.392 Active 27450968 Problem Type 2 diabetes mellitus without complications E11.9 Active 742826810 Problem Morbid obesity due to excess calories E66.01 Active 846901969 Problem Mild persistent asthma without complication J45.30 Active 535360244 Problem Essential hypertension I10 Active 60686023 Problem DM neuro manif type II E11.40 Active 55622572 Problem DM neuro manif type II E11.49 Active 17838247 Problem Other hammer toe(s) (acquired), left foot M20.42 Active 11519407 Problem Anxiety disorder, unspecified F41.9 Active 821061355 Problem Hyperlipidemia, unspecified hyperlipidemia type E78.5 Active 60503997 Problem Other hammer toe(s) (acquired), right foot M20.41 Active 353050416 ALLERGIES Unknown Allergies SOCIAL HISTORY No smoking Hx information available PLAN OF CARE VITAL SIGNS MEDICATIONS Unknown Medications RESULTS No Results PROCEDURES No Known procedures IMMUNIZATIONS No Known Immunizations
--- OUTSIDE RECORDS SUMMARY | 2017-11-22 09:44 | XMS REPORT ---
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 Name Role Phone JEN LU Unavailable Allergies No Known Allergies Problems Problem Type Condition ICD-9 Code Onset Dates Condition Status Problem Shortness of breath 786.05 Active Problem Unspecified sleep disturbance 780.50 Active Problem Obstructive sleep apnea (adult) (pediatric) 327.23 Active Problem Coronary atherosclerosis of unspecified type of vessel, grayling or graft 414.00 Active Problem Other general symptoms 780.99 Active Problem Unspecified transient cerebral ischemia 435.9 Active Problem Morbid obesity 278.01 Active Problem Nausea alone 787.02 Active Problem Garner's esophagus 530.85 Active Problem Unspecified gastritis and gastroduodenitis without mention of hemorrhage 535.50 Active Assessment Depressive disorder, not elsewhere classified 311 Active Assessment Anxiety disorder, unspecified 300.00 Active Problem Encounter for long-term (current) use of other medications V58.69 Active Problem Other chronic pain 338.29 Active Medications No Known Medications Procedures Procedure Coding System Code Date Psychotherapy, patient &/family, 45 minutes, established patient CPT-4 67008 Jan 01, 2015 Results No Known Results Summary Purpose eClinicalWorks Submission
--- OUTSIDE RECORDS SUMMARY | 2017-11-22 09:46 | XMS REPORT ---
Author Author KELSIE JENNIFER [facility] Address [address] [place] [address] Care Team Providers Care Bedspring Assembler Name Role Phone JENNIFER IGLESIAS Unavailable PROBLEMS Type Condition ICD9-CM Code UGJ00-LO Code Onset Dates Condition Status SNOMED Code Problem Depressive disorder, not elsewhere classified F32.9 Active 38238984 Problem DM neuro manif type II E11.40 Active 27634756 Problem Diabetes mellitus, controlled E11.9 Active 413867520 Problem Anxiety disorder, unspecified F41.9 Active 842543249 Problem Abscess, ear canal H60.00 Active 39642117 Problem Type 2 diabetes mellitus without complications E11.9 Active 084902256 Problem Encounter for Zostavax administration Z23 Active 964458741 Problem Morbid obesity due to excess calories E66.01 Active 725950244 Problem Other infective otitis externa of left ear H60.392 Active 47596009 Problem Contusion of right foot, initial encounter S90.31XA Active 19925608 Problem DM neuro manif type II E11.49 Active 54461388 Problem High risk medication use Z79.899 Active 586450841411496 Problem Hyperlipidemia, unspecified hyperlipidemia type E78.5 Active 27127686 Problem Breast cancer screening Z12.31 Active 797481199 Problem Personal history of nicotine dependence Z87.891 Active 12832371 Problem Medicare annual wellness visit, initial Z00.00 Active 101732297 Problem Strep throat J02.0 Active 15180444 Problem Other microscopic hematuria R31.29 Active 845057412 Problem Other hammer toe(s) (acquired), left foot M20.42 Active 29361372 Problem Mild persistent asthma without complication J45.30 Active 117460254 Problem Essential hypertension I10 Active 70087594 Problem Pain in right ankle and joints of right foot M25.571 Active 197070205 Problem Pain in left ankle and joints of left foot M25.572 Active 318668339 Problem BMI 40.0-44.9, adult Z68.41 Active 133687876 Problem Other chronic pain G89.29 Active 56094029 Problem Gynecologic exam normal Z01.419 Active 660815075 Problem Breast cancer screening Z12.39 Active 533524065 Problem Other hammer toe(s) (acquired), right foot M20.41 Active 101483042 Problem Osteopenia M85.80 Active 752263583 Problem Anxiety associated with depression F41.8 Active 702469674 Problem Type 2 diabetes mellitus with diabetic neuropathy, without long-term current use of insulin E11.40 Active 64311891 Problem Creatinine elevation R79.89 Active 027450813 Problem Lobar pneumonia J18.1 Active 431539919 ALLERGIES No Information ENCOUNTERS Encounter Location Date Diagnosis [facility] [id number] [id number] Oct, DM neuro manif type II E11.49 [facility] [address] [id number][place] [address] September, DM neuro manif type II E11.49 and BMI 40.0-44.9, adult Z68.41 [facility] [address] [id number][place] [address] Aug, Anxiety disorder, unspecified F41.9 [place] [address] [place] [address] 26660- 0907 Aug, [place] [id number] [place] [address]27[address]- 3731 Aug, Onychocryptosis L60.0 and DM neuro manif type II E11.40 [facility] [address] [id number][place] [address] Aug, 2018 Acute bronchitis due to other specified organisms J20.8 and BMI 40.0-44.9, adult Z68.41 [facility] [id number] [place] [address]79- [address]479 Aug, [facility] [address] [id number], [place] [id number] Aug, [place] [address] [facility] [id number], [place] [address] Aug, Onychocryptosis L60.0 [facility] [address] [id number], [place] [address] Aug, [facility] [address] [id number][place] [address] Jul, Strep throat J02.0 ; Other microscopic hematuria R31.29 and BMI 40.0-44.9, adult Z68.41 [facility] [address] [facility] [id number], [place] [address] Jul, [facility] [address] [id number], [place] [address] Jun, [facility] [address] [place] [address] [address]VE [id number], [place] [address] Jun, [facility] [address] [id number], [place] [address] Jun, Type 2 diabetes mellitus without complications E11.9 ; BMI 40.0- 44.9, adult Z68.41 ; Pain in right ankle and joints of right foot M25.571 ; Pain in left ankle and joints of left foot M25.572 and Other chronic pain G89.29 [place] [address] [facility] [id number], [place] [address] May, Onychomycosis B35.1 ; Onychocryptosis L60.0 and DM neuro manif type II E11.40 [facility] [address] [id number], [place] [address] May, [facility] [address] [id number], [place] [address] May, [facility] [address] [id number], [place] [address] Apr, Medicare annual wellness visit, initial Z00.00 ; Personal history of nicotine dependence Z87.891 ; Breast cancer screening Z12.31 and BMI 40.0- 44.9, adult Z68.[address] [facility] [address] [id number] [place] [id number] Apr, Anxiety disorder, unspecified F41.[address] [facility] [address] [id number] [place] [address] Feb, [facility] [address] [facility] [id number], [place] [address] Feb, Onychomycosis B35.1 and DM neuro manif type II E11.[address] [facility] [address] [id number] [place] [address] Feb, Type 2 diabetes mellitus without complications E11.9 and Encounter for immunization Z23 [facility] [address] [id number], [place] [address] Jan, Anxiety disorder, unspecified F41.9 [facility] [address] [address] [id number], [place] [address] Dec, [facility] [address] [facility] [id number], [place] [address] Nov, Right foot sprain, initial encounter S93.601A ; Onychomycosis B35.1 and DM neuro manif type II E11.[address] [facility] [address] [id number], [place] [address] Nov, Type 2 diabetes mellitus without complications E11.[address] [facility] [address] [id number] [place] [address] Nov, [facility] [address] [id number] [place] [address] Nov, Type 2 diabetes mellitus without complications E11.[address] [facility] [address] [id number] [place] [address] Nov, [facility] [address] [id number], [place] [address] Nov, [facility] [address] [id number], [place] [address] Nov, Type 2 diabetes mellitus without complications E11.9 ; Contusion of right foot, initial encounter S90.31XA and High risk medication use Z79.899 [facility] [address] [id number], [place] [address] Oct, High risk medication use Z79.899 [facility] [address] [id number], [place] [address] Oct, Anxiety disorder, unspecified F41.9 [facility] [address] [id number], [place] [address] September, Type 2 diabetes mellitus with diabetic neuropathy, without long- term current use of insulin E11.40 [facility] [address] [facility] [id number] [place] [address] Aug, Onychomycosis B35.1 ; DM neuro manif type II E11.40 and Other hammer toe(s) (acquired), right foot M20.41 [facility] [address] [id number], [place] [address] Aug, Type 2 diabetes mellitus without complications E11.9 ; Morbid obesity due to excess calories E66.01 and Encounter for immunization Z23 [facility] [facility] [address] [id number], [place] [id number] Aug, [facility] [address] [id number], [place] [address] Aug, Anxiety associated with depression F41.8 [facility] [address] [id number], [place] [address] Jul, Anxiety disorder, unspecified F41.9 [facility] [address] [id number], [place] [address] Jun, Anxiety associated with depression F41.8 [facility] [address] [id number], [place] [address] Jun, Lobar pneumonia J18.1 [facility] [address] [id number], [place] [address] Jun, Pneumonia of left lower lobe due to infectious organism J18.1 [facility] [address] [id number], [place] [address] Jun, [facility] [address] [id number], [place] [address] Jun, [facility] [address]100[place] [address]- [address] May, Onychomycosis B35.1 ; Other hammer toe(s) (acquired), right foot M20.41 ; Other hammer toe(s) (acquired), left foot M20.42 and DM neuro manif type II E11.40 [facility] [address] [id number], [place] [address] May, [facility] [address] [id number], [place] [address] May, [facility] [address] [address] [id number], [place] [address] May, [facility] [address] [place] [id number], [place] [address] May, [facility] [address] [id number], [place] [address] May, Gynecologic exam normal Z01.419 ; Breast cancer screening Z12.39 and Creatinine elevation R79.89 [facility] [address] [id number], [place] [address] Apr, [facility] [id number], [place] [address] Apr, Creatinine elevation R79.89 [facility] [address] [address] [id number], [place] [address] Apr, DM neuro manif type II E11.40 and Osteopenia M85.80 [facility] [address]00565100[place], [place] [address] Feb, Onychomycosis B35.1 and DM neuro manif type II E11.[address] [id number], [place] [address] Feb, [address] [id number], [place] [address] Jan, Mild persistent asthma without complication J45.30 ; Anxiety disorder, unspecified F41.9 and Essential hypertension I10 [place] [address] [place] [address] 94544- 7845 Jan, Anxiety disorder, unspecified F41.9 and Depressive disorder , not elsewhere classified F32.9 [place] [address] [place] [id number] [place] [address] 34784- 6833 Dec, Anxiety disorder, unspecified F41.9 and Depressive disorder , not elsewhere classified F32.9 [facility] [id number] [place] [address] 92511 -3111 Dec, Left elbow pain M25.522 [facility] [address] [place] [id number] [place] [address] 55129- 5692 Dec, Anxiety disorder, unspecified F41.9 and Depressive disorder , not elsewhere classified F32.9 [place] [address] [place] [address] 15064- 4962 Nov, Anxiety disorder, unspecified F41.9 and Depressive disorder , not elsewhere classified F32.9 [place] [address] [place] [address] 06863- 2119 Nov, Anxiety disorder, unspecified F41.9 and Depressive disorder , not elsewhere classified F32.[address] [id number], [place] 76[address] Oct, Diabetes mellitus, controlled E11.9 ; Hyperlipidemia, unspecified hyperlipidemia type E78.5 ; Essential hypertension I10 and Mild persistent asthma without complication J45.30 [place] [address] [place] [id number] [place] [address] 41347- 8707 Oct, Anxiety disorder, unspecified F41.9 and Depressive disorder , not elsewhere classified F32.9 [place] [address]00565100[place] [address]- [address] September, Anxiety disorder, unspecified F41.9 and Depressive disorder , not elsewhere classified F32.9 [place] [address]65[address], [place] [address]- 3181 Aug, Onychomycosis B35.1 and DM neuro manif type II E11.[address] [id number], [place] [address]98[address] Aug, [place] [address] [place] [address] 24914- 3905 Aug, Anxiety disorder, unspecified F41.9 and Depressive disorder , not elsewhere classified F32.[address] [id number], [place] 46[address]308[address] Jul, Type 2 diabetes mellitus without complications E11.9 ; Encounter for Zostavax administration Z23 ; Morbid obesity due to excess calories E66.01 and Other infective otitis externa of left ear H60.[address] [place] [address] [id number], [place] [address] Jul, [place] [address]00565100[place], [place] [address]- 6229 Jul, [place] [address]00565100[place], [place] [address]- 2051 Jul, [place] [address] [id number], [place] 68[address] Jun, [place] [address] [place] [address] 40742- 4537 Jun, Anxiety disorder, unspecified F41.9 and Depressive disorder , not elsewhere classified F32.[address] [place] [address] [id number], [place] 426[address] Jun, Abscess, ear canal H60.00 [facility] [address] [id number], [place] 747051622 Jun, Abscess, ear canal H60.[address] [id number], [place] 455[address]33 Jun, [facility] [address] [place] [id number] [address]645[place]- 8108 May, Anxiety disorder, unspecified F41.9 and Depressive disorder , not elsewhere classified F32.[address] [id number], [place] 75[address] Apr, Diabetes mellitus, controlled E11.9 and Breast cancer screening Z12.[address] [id number], [place] 79[address] Apr, Diabetes mellitus, controlled E11.9 ; Breast cancer screening Z12.39 and Morbid obesity due to excess calories E66.01 [facility] [address] [place] [address] 98662- 8308 Apr, Anxiety disorder, unspecified F41.9 and Depressive disorder , not elsewhere classified F32.[address] [id number], [place] [address] Mar, [facility] [address] [place] [id number] [place] [address] 48883- 6105 Mar, Encounter for immunization Z23 [facility] [address] [place] [address] 08207- 0215 Mar, Anxiety disorder, unspecified F41.9 and Depressive disorder , not elsewhere classified F32.9 [facility] [address] [place] [address] 64674- 4203 Feb, Foot ulcer, right L97.519 and DM neuro manif type II E11.40 [facility] [address] [place] [id number] [place] [address] 79109- 1481 Jan, Anxiety disorder, unspecified 300.00 and Depressive disorder , not elsewhere classified 311 [facility] [place] [address] [facility] [id number] [place] 8[place] Jan, [facility] [address]65100[place], [place] [address]- 1341 Jan, Cellulitis of right foot 682.7 ; Onychomycosis 110.1 ; Neuropathy 355.9 and Foot ulcer 707.15 [place] [address]65[address], [place] [address]- 8237 Jan, Anxiety disorder, unspecified 300.00 and Depressive disorder , not elsewhere classified [address] [id number], [place] [address] Jan, Anxiety disorder, unspecified 300.00 ; Shortness of breath 786.05 and Coronary atherosclerosis of unspecified type of vessel, [place] or graft 414.00 [place] [address] [place] [id number], [place] [address]- 6825 Dec, Anxiety disorder, unspecified 300.00 and Depressive disorder , not elsewhere classified 311 [place] [address], [place] [address]- 6336 Dec, Anxiety disorder, unspecified 300.00 and Depressive disorder , not elsewhere classified [address] [id number], [place] [address] Nov, [place] [address] [place] [id number], [place] [address]- 4730 Nov, Anxiety disorder, unspecified 300.00 and Depressive disorder , not elsewhere classified [address] [id number], [place] 828794653 Nov, Shortness of breath 786.05 and Morbid obesity 278.01 [place] [address] [place] [id number], [place] 78389210- 5131 Nov, Anxiety disorder, unspecified 300.00 and Depressive disorder , not elsewhere classified [address] [id number], [place] 510863565 Oct, Asthma, moderate persistent 493.90 [facility] [address] [place] [id number] 661787- 0387 Oct, Anxiety disorder, unspecified 300.00 and Depressive disorder , not elsewhere classified 311 [facility] [address] [place] [id number], [place] [address]- 9046 September, Hammertoe 735.4 ; Onychomycosis 110.1 and Type I diabetes mellitus with neurological manifestations 250.61 [facility] [address] [facility] [id number], [place] 496337909 September, [facility] [address] [place] [address] 16157- 8846 September, Anxiety disorder, unspecified 300.00 and Depressive disorder , not elsewhere classified 311 [facility] [address] [facility] [id number], [place] 805560217 September, Diabetes type 2, controlled 250.00 ; Asthma, mild persistent 493.90 and Dermatitis, contact 692.9 [facility] [address] [facility] [id number], [place] 15[address]31052 September, [facility] [address]65100[place], [place] [address]- 2170 September, Anxiety state, unspecified 300.00 and Depressive disorder, not elsewhere classified 311 [facility] [address] [place] [id number], [place] [address]- 9496 Aug, [facility] [address]005[address], [place] 30845224- 4853 Aug, [facility] [address]005[address], [place] 54360611- 5280 Jul, [facility] [address], [place] 350544- 5342 Jul, [facility] [address] [place] [id number], [place] 15166802- 7827 Jul, [facility] [address] [place] [address] [id number] [place] [address]- 0958 Jul, 2014 [facility] [place] [facility] [address] [id number] [place] [address]- 6110 Jul, 2014 [facility] [place] [facility] [address] [id number] [place] [address]- 2902 Jul, 2014 [facility] [place] [facility] [address] [id number] [place] [address]- 8107 Jul, 2014 [facility] [place] [facility] [address] [id number] [place] [address]- 7829 Jul, [facility] [place] [facility] [address] [id number] [place] [address]- 9442 Jun, 2014 [facility] [place] [facility] [address] [facility] [id number] [place] [address]- 7142 Jun, 2014 [facility] [place] [facility] [address] [facility] [id number] [place] [address]- 4680 Jun, 2014 [facility] [place] [facility] [address] [facility] [id number] [place] [address]- 6493 Jun, 2014 [facility] [place] [facility] [address] [facility] [id number] [place] [address]- 6212 17 Jun, 2014 [facility] [place] [facility] [address] [facility] [id number] [place] [address]- 5423 17 Jun, 2014 [facility] [place] [facility] [address] [facility] [id number] [place] [address]- 5171 16 Jun, 2014 [facility] [place] [facility] [address] [facility] [id number] [place] [address]- 0396 16 Jun, 2014 [facility] [place] [facility] [address] [facility] [id number] [place] [address]- 0660 Jun, 2014 [facility] [place] [facility] [address] [facility] [id number] [place] [address]- 4278 11 Jun, 2014 [facility] [place] [facility] [address] [facility] [id number], [place] [address]- 2546 Jun, [facility] [place] [facility] [address] [id number] [place] [address]- 7571 Jun, [facility] [place] [facility] [address] [id number] [place] [address]- 9571 Jun, [facility] [place] [facility] [address] [id number] [place] [address]- 4872 Jun, [facility] [place] [facility] [address] [id number] [place] [address]- 1040 May, [facility] [place] [facility] [address] [id number] [place] [address]- 0366 May, [facility] [place] [facility] [address] [id number] [place] [address]- 1437 May, [facility] [place] [facility] [address] [id number] [place] [address]- 5091 May, [facility] [place] [facility] [address] [id number] [place] [address]- 8445 May, [facility] [place] [facility] [address] [id number] [place] [address]- 2396 May, [facility] [place] [facility] [address] [facility] [id number] [place] [address]- 9954 May, [facility] [place] [facility] [address] [id number] [place] [address]- 8931 May, [facility] [place] [facility] [address] [id number] [place] [address]- 9017 Apr, [facility] [place] [facility] [address] [id number] [place] [address]- 6355 Apr, [facility] [place] [facility] [address] [id number] [place] [address]- 9056 Apr, [facility] [place] [facility] [address] [id number] [place] [address]- 1368 Apr, [facility] [place] [facility] [address] [id number] [place] [address]- 4678 20 Apr, 2014 [facility] [place] [facility] [address] [id number] [place] [address]- 5696 20 Apr, 2014 [facility] [place] [facility] [address] [id number] [place] [address]- 6506 15 Apr, 2014 [facility] [place] [facility] [address] [id number] [place] [address]- 7816 15 Apr, 2014 [facility] [place] [facility] [address] [id number] [place] [address]- 2126 10 Apr, 2014 [facility] [place] [facility] [address] [id number] [place] [address]- 9397 Apr, [facility] [place] [facility] [address] [id number] [place] [address]- 3698 Apr, [facility] [place] [facility] [address] [id number] [place] [address]- 2733 Apr, [facility] [place] [facility] [address] [id number] [place] [address]- 4524 Mar, [facility] [place] [facility] [address] [id number] [place] [address] Mar, [facility] [place] [facility] [address] [id number] [place] [address] 18 Mar, 2014 [facility] [place] [facility] [address] [id number] [place] [address] 18 Mar, 2014 [facility] [place] [facility] [address] [id number] [place] [address] 17 Mar, 2014 [facility] [place] [facility] [address] [id number] [place] [address] 17 Mar, 2014 [facility] [place] [facility] [address] [id number] [place] [address] 12 Mar, 2014 [facility] [place] [facility] [address] [id number] [place] [address] Mar, [facility] [place] [facility] [address] [id number] [place] [address] Feb, [facility] [place] [facility] [address] [id number] [place] [address] Feb, [facility] [place] [facility] [address] [id number] [place] [address] Feb, [facility] [place] [facility] [address] [id number] [place] [address] Feb, [facility] [place] [facility] [address] [id number] [place] [address] Feb, [facility] [place] [facility] [address] [id number] [place] [address] Feb, [facility] [place] [facility] [address] [id number] [place] [address] Feb, [facility] [place] [facility] [address] [id number] [place] [address] Feb, [facility] [place] [facility] [address] [id number] [place] [address] 19 Jan, 2014 [facility] [place] [facility] [address] [id number] [place] [address] 19 Jan, 2014 [facility] [place] [facility] [address] [id number], [place] [address] 17 Sep, 2013 [facility] [place] [facility] [address] [id number], [place] [address] 17 Sep, 2013 [facility] [place] [facility] [address] [id number] [place] [address] 16 Sep, 2013 [facility] [place] [facility] [address] [id number], [place] [address] 16 Sep, 2013 [facility] [place] [facility] [address] [id number], [place] [address] 15 Jan, 2013 [facility] [place] [facility] [address] [id number] [place] [address] 15 Jan, 2013 [facility] [facility] [address] [id number] [place] [address] 15 Jan, 2014 [facility] [place] [facility] [address] [id number] [place] [address] 15 Jan, 2014 [facility] [place] [facility] [address] [id number] [place] [address] 1196 09 Jan, 2014 [facility] [place] [facility] [address] [id number] [place] [address] 3[address] Jan, [facility] [place] [facility] [address] [id number] [place] [address]- 2230 Dec, [facility] [place] [facility] [address] [id number] [place] [address] 3099 Dec, [facility] [place] [facility] [address] [id number] [place] [address]160 Dec, [facility] [place] [facility] [address] [id number] [place] [address]- 2198 Dec, [facility] [place] [facility] [address] [id number] [place] [address]- 7163 Nov, [facility] [place] [facility] [address] [id number] [place] [address]- 2313 Nov, [facility] [place] [facility] [address] [id number] [place] [address]- 2956 Nov, [facility] [place] [facility] [address] [id number] [place] [address]- 3719 Nov, [facility] [place] [facility] [address] [id number] [place] [address]- 2482 Oct, [facility] [place] [facility] [address] [id number] [place] [address]- 7852 Oct, [facility] [place] [facility] [address] [id number] [place] [address]- 1054 Oct, [facility] [place] [address] [id number] [place] [address]- 5453 Oct, [facility] [place] [address] [id number] [place] [address]- 9281 Oct, [facility] [place] [facility] [address] [id number] [place] [address]- 5940 Oct, [facility] [place] [facility] [address] [id number] [place] [address]- 6602 Oct, [facility] [place] [address] [id number] [place] [address] 3732 Oct, [facility] [place] [address] [id number] [place] [address]- 8293 Oct, [facility] [place] [facility] [address] [id number] [place] [address]- 7077 Oct, [facility] [address] [id number] [place] [address]- 9871 September, [facility] [address] [id number] [place] [address]- 2922 September, [facility] [place] [facility] [address] [id number] [place] [address]- 9700 September, [facility] [address] [id number] [place] [address]- 0921 September, [facility] [address] [id number] [place] [address]- 0674 September, [facility] [place] [facility] [address] [id number] [place] [address]- 6938 September, [facility] [address] [id number] [place] [address]- 4822 September, [facility] [address] [id number] [place] [address]- 5714 September, [facility] [place] [facility] [address] [id number] [place] [address]- 7880 Aug, [facility] [address] [id number] [place] [address]- 5701 Aug, [facility] [place] [address] [id number] [place] [address]- 9522 Aug, [facility] [address] [id number] [place] [address]- 9292 Aug, [facility] [address] [id number] [place] [address]- 8268 Aug, [facility] [address] [id number] [place] [address]- 3151 Aug, [facility] [address] [id number] [place] [address]- 8916 Aug, [facility] [address] [id number] [place] [address]- 7000 Aug, [facility] [place] [facility] [address] [id number] [place] [address]- 9820 Aug, [facility] [place] [facility] [address] [id number] [place] [address]- 7232 Jul, [facility] [address] [id number] [place] [address]- 3314 Jul, [facility] [address] [id number] [place] [address]- 7394 Jul, [facility] [address] [id number] [place] [address]- 7398 Jul, [facility] [address] [id number] [place] [address]- 3022 Jul, [facility] [address] [id number] [place] [address]- 7120 Jul, [facility] [address] [id number] [place] [address]- 4462 Jul, [facility] [address] [id number] [place] [address]- 9116 24 Jul, 2013 [facility] [address] [id number] [place] [address]- 6787 18 Jul, 2013 [facility] [address] [id number] [place] [address]- 3786 18 Jul, 2013 [facility] [address] [id number] [place] [address]- 4858 17 Jul, 2013 [facility] [address] [id number] [place] [address]- 1436 Jul, [facility] [address] [id number] [place] [address]- 6566 Jul, [facility] [address] [id number] [place] [address]- 3206 Jul, [facility] [address] [id number] [place] [address]- 9059 Jul, [facility] [address] [id number] [place] [address]- 2171 Jul, [facility] [address] [id number] [place] [address]- 2665 Jul, [facility] [address] [id number] [place] [address]- 9600 Jul, [facility] [address] [id number] [place] [address]- 9726 Jul, [facility] [address] [id number] [place] [address]- 0776 Jul, [facility] [address] [id number] [place] [address]- 2986 Jun, [facility] [address] [id number] [place] [address]- 8146 Jun, [facility] [address] [id number] [place] [address]- 0750 Jun, [facility] [address] [id number] [place] [address]- 1929 Jun, [facility] [address] [id number] [place] [address]- 7126 Jun, [facility] [address] [facility] [id number] [place] [address]- 2896 Jun, [facility] [address] [id number] [place] [address]- 3277 Jun, [facility] [address] [id number] [place] [address]- 1443 Jun, [facility] [address] [facility] [id number] [place] [address]- 7844 Jun, [facility] [address] [facility] [id number] [place] [address]- 2757 Jun, [facility] [address] [id number] [place] [address]- 2503 Jun, [facility] [address] [facility] [id number] [place] [address]- 5236 Jun, [facility] [address] [facility] [id number] [place] [address]- 1732 May, [facility] [address] [id number] [place] [address]- 4771 May, [facility] [address] [id number] [place] [address]- 3130 May, [facility] [address] [id number] [place] [address]- 4199 May, [facility] [address] [facility] [id number] [place] [address]- 9383 May, [facility] [address] [facility] [id number] [place] [address]- 4498 May, [facility] [address] [id number] [place] [address]- 4241 May, [facility] [address] [id number] [place] [address]- 8664 May, [facility] [address] [id number] [place] [address]- 5740 May, [facility] [address] [id number] [place] [address]- 3755 May, [facility] [address] [id number] [place] [address]- 3008 May, [facility] [address] [id number] [place] [address]- 9805 May, [facility] [address] [id number] [place] [address]- 9125 May, [facility] [address] [id number] [place] [address]- 7357 May, [facility] [address] [id number] [place] [address]- 8621 Apr, [facility] [address] [id number] [place] [address]- 9439 Apr, [facility] [address] [id number] [place] [address]- 4422 Apr, [facility] [address] [id number] [place] [address]- 7620 17 Apr, 2013 [facility] [address] [id number] [place] [address]- 8356 16 Apr, 2013 [facility] [address] [id number] [place] [address]- 3583 16 Apr, 2013 [facility] [address] [id number] [place] [address]- 7685 12 Apr, 2013 [facility] [address] [id number] [place] [address]- 8321 Apr, [facility] [address] [id number] [place] [address]- 8750 Apr, [facility] [address] [id number] [place] [address]- 8447 Apr, [facility] [address] [id number] [place] [address]- 4490 Apr, [facility] [address] [id number] [place] [address]- 7600 Apr, [facility] [address] [id number] [place] [address]- 4151 Mar, [facility] [address] [id number] [place] [address]- 7997 Mar, [facility] [address] [id number] [place] [address]- 4807 Mar, [facility] [address] [id number], [place] [address]- 4711 Mar, [facility] [address] [id number], [place] [address]- 9945 Mar, [facility] [address] [id number], [place] [address]- 9293 Mar, [facility] [address] [id number], [place] [address]- 5856 Mar, [facility] [address] [id number], [place] [address]- 3591 Mar, [facility] [address] [id number], [place] [address]- 3424 Mar, [facility] [address] [id number], [place] [address]- 4143 Mar, [facility] [address] [id number], [place] [address]- 7752 Mar, [facility] [address] [facility] [id number], [place] [address]- 5343 Mar, [facility] [address] [facility] [id number][place] 9469 Feb, [facility] [address] [facility] [id number], [place] [address]- 7196 Feb, [facility] [address] [id number] [place] [id number] Feb, [facility] [address] [facility] [id number][place] [address]- 9388 Feb, [facility] [address] [facility] [id number], [place] [address]- 2027 Feb, [facility] [address] [facility] [id number], [place] [address]- 5172 Feb, [facility] [address] [facility] [id number], [place] [address]- 0075 Feb, [facility] [address] [facility] [id number], [place] [address]- 6644 Feb, [facility] [address] [facility] [id number], [place] [address]- 3031 Feb, [facility] [address] [facility] [id number], [place] [address]- 6388 Feb, [facility] [address] [facility] [id number], [place] [address]- 7069 Feb, [facility] [address] [facility] [id number], [place] [address]- 8479 Feb, [facility] [address] [facility] [id number], [place] [address]- 0384 Feb, [facility] [address] [facility] [id number], [place] [address]- 1761 Jan, [facility] [address] [id number] [place] [address] Jan, [facility] [address] [id number] [place] [address] 16 Jan, 2013 [facility] [place] [address] [id number] [place] [id number] Jan, [facility] [place] [address] [id number] [place] [address] Jan, [facility] [address] [id number] [place] [address]- 2476 Jan, [facility] [place] [address] [id number] [place] [address] Jan, [facility] [address] [id number] [place] [address]- 3749 Dec, [facility] [address] [id number] [place] [address]- 3243 Dec, [facility] [address] [facility] [id number] [place] [address]- 2508 Dec, [facility] [place] [address] [id number] [place] [id number] Dec, [facility] [place] [address] [id number] [place] [address] Dec, [facility] [place] [address] [id number] [place] [address] Dec, [facility] [address] [id number] [place] [address]- 6201 Dec, [facility] [address] [facility] [id number] [place] [address]- 2583 Dec, [facility] [place] [address] [id number] [place] [id number] Dec, [facility] [address] [id number] [place] [address]- 1133 Dec, [facility] [address] [facility] [id number] [place] [address]- 1540 Nov, [facility] [address] [facility] [id number] [place] [address]- 6712 Nov, [facility] [address] [facility] [id number] [place] [address]- 2546 Nov, [facility] [place] [address] [id number] [place] [address] Nov, [facility] [place] [address] [facility] [id number] [place] [address] Oct, [facility] [place] [address] [facility] [id number] [place] [address] Oct, [facility] [address] [facility] [id number], [place] [address]- 5176 Oct, [facility] [place] [facility] [address] [facility] [id number] [place] [address]- 2546 Oct, [facility] [place] [facility] [address] [facility] [id number], [place] [address]- 6516 Oct, [facility] [place] [address] [facility] [id number] [place] [id number] Oct, [facility] [facility] [id number], [place] [address]- 7776 Oct, [facility] [place] [address] [facility] [id number] [place] [id number] Oct, [facility] [place] [address] [facility] [id number] [place] [address] September, [facility] [facility] [address] [facility] [id number], [place] [address]- 7086 September, [facility] [place] [address] [facility] [id number] [place] [address] September, [facility] [place] [facility] [address] [facility] [id number], [place] [address]- 2546 September, [facility] [place] [facility] [address] [facility] [id number], [place] [address]- 5076 September, [facility] [place] [facility] [address] [facility] [id number], [place] [address]- 2546 September, [facility] [place] [address] [facility] [id number] [place] [id number] September, [facility] [place] [facility] [address] [id number], [place] [address]- 8826 September, [facility] [address] [facility] [id number] [place] [address]- 8566 September, [facility] [place] [facility] [address] [facility] [id number] [place] [address]- 8126 Aug, [facility] [address] [facility] [id number] [place] [address] Aug, [facility] [address] [facility] [id number] [place] [id number] Aug, [facility] [address] [facility] [id number], [place] [address]- 8866 Aug, [facility] [place] [facility] [address] [facility] [id number], [place] [address]- 2546 Aug, [facility] [address] [id number] [place] [id number] 15 Aug, 2012 [facility] [address] [facility] [id number] [place] [address] Aug, [facility] [address] [facility] [id number], [place] [address]- 3402 Aug, [facility] [place] [facility] [address] [facility] [id number][place] [address]- 1266 Aug, [facility] [place] [facility] [address] [facility] [id number], [place] [address]- 1057 Jul, [facility] [place] [address] [facility] [id number] [place] [id number] Jul, [facility] [place] [facility] [address] [facility] [id number] [place] [address]- 3840 Jul, [facility] [place] [facility] [address] [facility] [id number], [place] [address]- 9846 Jul, [facility] [place] [facility] [address] [facility] [id number], [place] [address]- 0195 Jul, [facility] [place] [facility] [address] [facility] [id number], [place] [address]- 2546 Jul, [facility] [address] [facility] [id number], [place] [address]- 2546 Jul, [facility] [place] [facility] [address] [id number], [place] [address]- 2546 Jul, [facility] [place] [address] [id number] [place] [id number] Jul, [facility] [place] [address] [id number] [place] [address] Jun, [facility] [address] [facility] [id number], [place] [address]- 4616 Jun, [facility] [place] [address] [id number] [place] [id number] Jun, [facility] [id number], [place] [address]- 1126 Jun, [facility] [id number], [place] [address]- 4016 May, [facility] [address]00565100[place], [place] [address]- 2595 May, [facility] [place] [id number] [place] [id number] May, [facility] [place] [address] [id number] [place] [address] May, [facility] [place] [facility] [address]00565100[place], [place] [address]- 0506 May, [facility] [place] [address] [id number] CITY[place] [id number] May, [facility] [place] [facility] [address] [facility] [id number], [place] [address] May, [facility] [place] [facility] [address] [facility] [id number][place] [address] May, [facility] [address] [id number] [place] [id number] Apr, [facility] [address] [id number] [place] [id number] Apr, [facility] [address] [facility] [id number] [place] [address] Apr, [facility] [place] [facility] [address] [facility] [id number] [place] [address] Apr, [facility] [place] [facility] [address] [facility] [id number] [place] [address] Apr, [facility] [place] [facility] [address] [facility] [id number] [place] [address] Apr, [facility] [address] [facility] [id number] [place] [id number] Apr, [facility] [place] [facility] [address] [facility] [id number] [place] [address] Apr, [facility] [place] [facility] [id number] [place] [address] Apr, [facility] [place] [facility] [address] [facility] [id number], [place] [address] Apr, [facility] [address] [facility] [id number] [place] [id number] Apr, [facility] [place] [facility] [address] [facility] [id number], [place] [address] Apr, [facility] [place] [facility] [address] [facility] [id number], [place] [address] Apr, [facility] [place] [facility] [address] [facility] [id number], [place] [address] Apr, [facility] [place] [facility] [address] [facility] [id number] [place] [address] Mar, [facility] [place] [facility] [address] [facility] [id number] [place] [address] Mar, [facility] [place] [facility] [address] [facility] [id number] [place] [address] Mar, [facility] [place] [facility] [address] [facility] [id number], [place] [address] Mar, [facility] [address] [facility] [id number] [place] [id number] Mar, [facility] [place] [facility] [address] [facility] [id number], [place] [address] Mar, [facility] [address] [facility] [id number] [place] [id number] Mar, [facility] [place] [facility] [address] [facility] [id number], [place] [address] Mar, [facility] [address] [facility] [id number] [id number] Feb, [facility] [place] [facility] [address] [facility] [id number], [place] [address] Feb, [facility] [place] [facility] [id number], [place] [address] Feb, [facility] [place] [facility] [address] [facility] [id number], [place] [address] Feb, [facility] [place] [facility] [address] [facility] [id number][place] [address] Jan, [facility] [id number] [id number] Jan, [facility] [place] [facility] [address] [facility] [id number], [place] [address] 13 Jan, 2012 [facility] [place] [facility] [address] [facility] [id number], [place] [address] 10 Jan, 2012 [facility] [place] [facility] [address] [facility] [id number], [place] [address] 05 Jan, 2012 [facility] [address] [facility] [id number] [place] [id number] Jan, [facility] [place] [facility] [address] [facility] [id number][place] [address] Dec, [facility] [address] [facility] [id number] [place] [id number] Dec, [facility] [place] [facility] [address] [id number] [place] [address] Dec, [facility] [place] [facility] [address] [facility] [id number] [place] [address] 4316 Dec, [facility] [place] [facility] [address] [facility] [id number] [place] [address]- 4069 Nov, [facility] [place] [facility] [address] [facility] [id number] [place] [address]17 Nov, [facility] [place] [facility] [address] [facility] [id number] [place] [address] Nov, [facility] [address] [facility] [id number] [place] [id number] Nov, [facility] [place] [facility] [address] [facility] [id number] [place] [address]- [address] Nov, [facility] [address] [facility] [id number] [place] [id number] Nov, [facility] [place] [facility] [address] [facility] [id number] [place] [address]- [address] Nov, [facility] [place] [facility] [address] [facility] [id number], [place] [address] Nov, [facility] [place] [facility] [address] [facility] [id number][place] [address] Nov, [facility] [place] [facility] [address] [facility] [id number], [place] [address]36 Oct, [facility] [place] [facility] [address] [facility] [id number] [place] [address] Oct, [facility] [address] [id number] [place] [id number] Oct, [facility] [address] [id number] [place] [id number] Oct, [facility] [address] [id number] [place] [id number] Oct, [facility] [place] [facility] [address] [id number] [place] [address]- [address]26 Oct, [facility] [address] [id number] [place] [address] Oct, [facility] [place] [facility] [address] [id number] [place] [address]- [address] Oct, [facility] [place] [facility] [address] [id number] [place] [address]- [address] September, [facility] [place] [facility] [address] [id number] [place] [address]- 6[address] September, [facility] [place] [facility] [address] [id number] [place] [address]- 3930 September, [facility] [address] [id number] [place] [address]- [address]44 Aug, [facility] [place] [facility] [address] [id number] [place] [address]- 1484 Aug, [facility] [address] [id number] [place] [address]- 8817 Aug, [facility] [address] [facility] [id number] [place] [address]- 8566 Aug, [facility] [address] [id number] [place] [address] Aug, [facility] [address] [id number] [id number] Jul, [facility] [address] [id number] [place] [address] Jul, [facility] [place] [facility] [address] [facility] [id number] [place] [address] 24 Jun, 2011 [facility] [place] [facility] [address] [id number] [place] [address] Jun, [facility] [place] [facility] [address] [facility] [id number] [place] [address] Jun, [facility] [address] [id number] [place] [address] 10 Jun, 2011 [facility] [place] [facility] [address] [id number] [place] [address] 02 Jun, 2011 [facility] [place] [facility] [address] [id number] [place] [address] May, [facility] [place] [facility] [address] [id number] [place] [address] May, [facility] [address] [id number] [place] [address] May, [facility] [place] [facility] [address] [id number] [place] [address] May, [facility] [place] [facility] [address] [id number] [place] [address] May, [facility] [place] [facility] [address] [id number] [place] [address] May, [facility] [address] [id number] [place] [address] May, [facility] [place] [facility] [address] [id number] [place] [address] May, [facility] [place] [facility] [address] [id number] [place] [address] 27 Apr, 2011 [facility] [place] [facility] [address] [id number] [place] [address] 20 Apr, 2011 [facility] [place] [facility] [address] [id number] [place] [address] 16 Apr, 2011 [facility] [place] [facility] [address] [id number] [place] [address] 15 Apr, 2011 [facility] [place] [facility] [address] [id number] [place] [address] 13 Apr, 2011 [facility] [place] [facility] [address] [id number] [place] [address] 05 Apr, 2011 [facility] [place] [facility] [address] [id number] [place] [address] Mar, [facility] [place] [facility] [address] [id number] [place] [address] Mar, [facility] [place] [facility] [address] [id number] [place] [address]68 15 Mar, 2011 [facility] [place] [facility] [address] [id number] [place] [address] 14 Mar, 2011 [facility] [place] [facility] [address] [id number] [place] [address] Mar, [facility] [place] [facility] [address] [id number] [place] [address] Mar, [facility] [place] [facility] [address] [id number] [place] [address] Mar, [facility] [place] [facility] [address] [id number] [place] [address] 110[address] Mar, [facility] [place] [facility] [address] [id number] [place] [address] Feb, [facility] [place] [facility] [address] [id number] [place] [address] 16 Jun, 2010 [facility] [place] [facility] [address] [id number] [place] [address] May, [facility] [place] [facility] [address] [id number] [place] [address] May, [facility] [place] [facility] [address] [id number] [place] [address] Apr, [facility] [place] [facility] [address] [id number] [place] [address] Apr, [facility] [place] [facility] [address] [id number] [place] [address] Apr, [facility] [place] [facility] [address] [id number] [place] [address] Mar, [facility] [place] [facility] [address] [id number] [place] [address] Mar, [facility] [place] [facility] [address] [id number] [place] [address] Mar, [facility] [place] [facility] [address] [id number] [place] [address] Mar, [facility] [place] [facility] [address] [id number] [place] [address] Mar, [facility] [place] [facility] [address] [id number] [place] [address] Feb, [facility] [place] [facility] [address] [id number] [place] [address] Feb, [facility] [address] [id number] [place] [address] Oct, [facility] [place] [facility] [address] [id number] [place] [address] September, [facility] [place] [facility] [address] [id number] [place] [address] Apr, [facility] [place] [facility] [address] [id number] [place] [address] Apr, [facility] [place] [facility] [address] [id number] [address] 30 Mar, 2009 [facility] [place] [facility] [address] [id number] [place] [address] Mar, [facility] [place] [facility] [address] [id number] [place] [address] Mar, [facility] [place] [facility] [address] [id number] [place] [address] 06 Mar, 2009 [facility] [place] [facility] [address] [id number], [place] [address] Mar, [facility] [address] [facility] [id number] [place] [address] 25[address] Feb, [facility] [address] [facility] [id number], [place] [address] Feb, [facility] [address] [facility] [id number], [place] [address] Jan, [facility] [address] [facility] [id number], [place] [address] 2546 Oct, IMMUNIZATIONS No Known Immunizations SOCIAL HISTORY Never Assessed REASON FOR VISIT labs/ PLAN OF CARE VITAL SIGNS MEDICATIONS Unknown [...]
--- OUTSIDE RECORDS SUMMARY | 2017-11-22 09:46 | XMS REPORT ---
Author Author SAUD DUTTA [facility] Address [address] [place] [address] Care Team Providers Care Homicide Detective Name Role Phone SAUD DUTTA Unavailable PROBLEMS Type Condition ICD9-CM Code CTS30-GG Code Onset Dates Condition Status SNOMED Code Problem Osteopenia M85.80 Active 388435515 Problem Gynecologic exam normal Z01.419 Active 760966402 Problem Breast cancer screening Z12.39 Active 278610580 Problem Contusion of right foot, initial encounter S90.31XA Active 91683544 Problem Abscess, ear canal H60.00 Active 60549048 Problem High risk medication use Z79.899 Active 148570204566659 Problem Diabetes mellitus, controlled E11.9 Active 985086769 Problem Depressive disorder, not elsewhere classified F32.9 Active 46910904 Problem Lobar pneumonia J18.1 Active 891816717 Problem Creatinine elevation R79.89 Active 159879822 Problem Type 2 diabetes mellitus with diabetic neuropathy, without long-term current use of insulin E11.40 Active 70991478 Problem Anxiety associated with depression F41.8 Active 517159087 Problem Encounter for Zostavax administration Z23 Active 039879476 Problem Other infective otitis externa of left ear H60.392 Active 90783990 Problem Type 2 diabetes mellitus without complications E11.9 Active 319290548 Problem Morbid obesity due to excess calories E66.01 Active 112394778 Problem Mild persistent asthma without complication J45.30 Active 223178472 Problem Essential hypertension I10 Active 05290706 Problem DM neuro manif type II E11.40 Active 25400829 Problem DM neuro manif type II E11.49 Active 11180525 Problem Other hammer toe(s) (acquired), left foot M20.42 Active 56241648 Problem Anxiety disorder, unspecified F41.9 Active 427123743 Problem Hyperlipidemia, unspecified hyperlipidemia type E78.5 Active 96311161 Problem Other hammer toe(s) (acquired), right foot M20.41 Active 122947984 ALLERGIES Substance Reaction Event Type Date Status Ultram Unknown Drug Allergy Jun, Active Theophylline Unknown Drug Allergy Jun, Active Tegretol Unknown Drug Allergy Jun, Active Talacen Unknown Drug Allergy Jun, Active Imitrex Unknown Drug Allergy Jun, Active Erythromycin Unknown Drug Allergy Jun, Active Emcyt Unknown Drug Allergy Jun, Active Dilantin Unknown Drug Allergy Jun, Active Darvon Unknown Drug Allergy Jun, Active Byetta 10 MCG Pen Unknown Drug Allergy Jun, Active SOCIAL HISTORY Never Assessed PLAN OF CARE Activity Details Follow Up Monday Reason:recheck lungs VITAL SIGNS Height 65 in 2016-06-22 Weight 247.0 lbs 2016-06-22 Temperature 97.7 degrees Fahrenheit 2016-06-22 Heart Rate 82 bpm 2016-06-22 Respiratory Rate 18 2016-06-22 Oximetry 88 % 2016-06-22 BMI 41.10 kg/m2 2016-06-22 Blood pressure systolic 120 mmHg 2016-06-22 Blood pressure diastolic 80 mmHg 2016-06-22 MEDICATIONS Medication Instructions Dosage Frequency Start Date End Date Duration Status nexium 40 mg Orally 2 times per day 1 capsule Active Sertraline HCl 100 MG Orally Once a day 1 1/2 tablets 24h Active Ipratropium-Albuterol 0.5-2.5 (3) Inhalation every 6 hrs 3 ml 6h Active Ativan 0.5 MG Orally Two times per day 1 tablet as needed for severe anxiety Active Ventolin HFA 108 (90 Base) MCG/ACT Inhalation 4 times a day as needed for shortness of breath/cough 2 puffs Active Fish Oil 500 MG Orally Once a day 3 capsule 24h Active E-Z Spacer 12h Active Doxycycline Monohydrate 100 mg Orally every 12 hrs 1 capsule 12h Jun, Jun, 10 days Active Lisinopril 2.5 MG Orally Once a day 1 tablet 24h Mar, Active Gabapentin 800 MG Orally Four times a day 6h Active Claritin 10 MG Orally Once a day 1 tablet 24h Active Flovent HFA 110 INHALE 2 PUFFS TWICE DAILY(SCHEDULED PREVENTION MEDICINE) RINSE MOUTH AFTER EACH USE 30 Active Colace 100 MG Orally Two times per day PRN 1 capsule as needed Active Lyrica 100 MG Orally Twice a day 1 capsule 12h Active [place] 7.5-325 MG Orally 3 times a day 1 tablet as needed 8h Active Carafate 1 GM Orally Four times a day 1 tablet on an empty stomach 6h Active Hydrochlorothiazide 25 TAKE 1 TABLET BY MOUTH EVERY DAY 30 Active Alendronate Sodium 70 TAKE 1 TABLET BY MOUTH ONCE WEEKLY 4 Active Metoprolol Tartrate 25 MG Orally Twice a day TAKE TWO TABLETS BY MOUTH DAILY IN THE MORNING, AND ONE TABLET BY MOUTH DAILY IN THE EVENING. 12h Active Crestor 40 mg Orally Once a day 1 tablet 24h Active Ipratropium-Albuterol 0.5-2.5 (3) MG/3ML Inhalation every 6 hrs 3 ml 6h Active Nebulizer/Tubing/Mouthpiece 1 kit as directed Jun, Active Nexium 40 TAKE ONE CAPSULE BY MOUTH TWICE DAILY 30 Active Calcium + D 315-200 MG-UNIT Orally Twice a day 1 tablet with meals 12h Active Loratadine 10 TAKE 1 TABLET BY MOUTH DAILY 30 Active Nebulizer 1 by inhalation route 4 times a day 3 mls 6h Active Metformin HCl 1000 MG Orally Twice a day 1 tablet with meals 12h 30 Active Baclofen 10 MG/20ML Active RESULTS Name Result Date Reference Range INFLUENZA A & B (IN HOUSE) INFLUENZA A neg INFLUENZA B neg Control + Lot # [id number] Exp date 04/2018 Xray : Chest (IN HOUSE) 2016-06-22 PROCEDURES Procedure Date Ordered Result Body Site CHEST X-RAY Jun 22, 2016 NEBULIZER TREATMENT 2016-06-22 N/A ALBUTEROL UNIT DOSE FORM INHALED 2016-06-22 N/A INFLUENZA ASSAY W/OPTIC Jun 22, 2016 THER/PROPH/DIAG INJ, SC/IM Jun 22, 2016 FQ VISIT ESTABLISHED PATIENT Jun 22, 2016 NEB/MDI RX INITIAL Jun 22, 2016 MEASURE BLOOD OXYGEN LEVEL Jun 22, 2016 ROCEPHIN 1 GM (IM) Jun 22, 2016 ALBUTEROL INHAL UNIT DOSE 1 MG Jun 22, 2016 IMMUNIZATIONS Vaccine Route Administration Date Status ROCEPHIN 1 GM (IM) IM Intramuscular Jun 22, 2016 Administered MEDICAL (GENERAL) HISTORY Type Description Date Medical [...]
--- OUTSIDE RECORDS SUMMARY | 2017-11-22 09:46 | XMS REPORT ---
Author JEN Rock Organization [employer] Address Unknown Phone Unavailable Care Team Providers Care Machine Technician Name Role Phone JEN LU CP Unavailable Allergies No Known Allergies Problems Problem Type Condition Code Onset Dates Condition Status Problem Morbid obesity 278.01 Active Problem Garner's esophagus 530.85 Active Problem Unspecified gastritis and gastroduodenitis without mention of hemorrhage 535.50 Active Problem Depressive disorder, not elsewhere classified F32.9 Active Problem DM neuro manif type II E11.40 Active Problem Anxiety disorder, unspecified F41.9 Active Problem Coronary atherosclerosis of unspecified type of vessel, [place] or graft 414.00 Active Problem Other general symptoms 780.99 Active Problem Anxiety disorder, unspecified 300.00 Active Problem Unspecified transient cerebral ischemia 435.9 Active Assessment Depressive disorder, not elsewhere classified F32.9 Active Assessment Anxiety disorder, unspecified F41.9 Active Problem Shortness of breath 786.05 Active Problem Obstructive sleep apnea (adult) (pediatric) 327.23 Active Problem Encounter for long-term (current) use of other medications V58.69 Active Problem Unspecified sleep disturbance 780.50 Active Problem Other chronic pain 338.29 Active Problem Nausea alone 787.02 Active Medications No Known Medications Procedures Procedure Coding System Code Date Psychotherapy, patient &/family, 45 minutes, established patient CPT-4 08999 Apr 20, 2015 [facility] VISIT MENTAL HEALTH ESTAB PT CPT-4 G0470 Apr 20, 2015 Results No Known Results Summary Purpose [employer] Submission
--- OUTSIDE RECORDS SUMMARY | 2017-11-22 09:47 | XMS REPORT ---
Author JENNIFER Kaba Organization [employer] Address Unknown Phone Unavailable Care Team Providers Care Sap Sd Analyst Name Role Phone JENNIFER IGLESIAS CP Unavailable Allergies, Adverse Reactions, Alerts Substance [...] Active Assessment Breast cancer screening Z12.39 Active Assessment Morbid obesity due to excess calories E66.01 Active Problem DM neuro manif type II E11.40 Active Assessment Diabetes mellitus, controlled E11.9 Active Medications Medication Code System Code Instructions Start Date End Date Status Dosage Metoprolol Tartrate [facility] 73023948478 25 MG TAKE TWO TABLETS BY MOUTH DAILY IN THE MORNING, AND ONE TABLET BY MOUTH DAILY IN THE EVENING. Metformin HCl [facility] 42126959643 1000 MG Orally Twice a day 1 tablet with meals Sertraline HCl [facility] 61281880387 100 MG TAKE ONE AND ONE-HALF TABLETS BY MOUTH ONCE DAILY. Zoloft ND 0 100 mg Oral once a day 1.5 E-Z Spacer [facility] [address]-58 Two times a day not defined Ativan [facility] [address]-72 0.5 MG Orally Two times per day 1 tablet as needed Gabapentin [facility] [address]-32 800 MG Orally Four times a day not defined Crestor [facility] [address]-39 40 MG Orally Once a day May 29, 2014 1 tablet Flovent HFA [facility] 63213716589 110 MCG/ACT 2 puffs Twice a day Inhalation 30 days [place] [facility] [address]-27 7.5-325 MG Orally every 6 hrs 1 tablet as needed Claritin [facility] [address]-33 10 MG Orally Once a day 1 tablet Lyrica [facility] [address]-81 100 MG Orally Twice a day 1 capsule nexium [facility] 0 40 mg 2 times per day 1 Vitamin D [facility] [address]-78 1000 UNIT Orally Once a day 1 capsule ProAir HFA [facility] [address]-52 108 (90 Base) MCG/ACT Inhalation PRN 2 puffs as needed Fosamax [facility] 03714750764 70 MG Orally once a week Take 1 tablet by Oral route 1 time per week Lisinopril [facility] [address]-99 2.5 MG Orally Once a day Mar 25, 2015 1 tablet Fish Oil [facility] [address]-30 500 MG Orally Once a day 1 capsule Colace [facility] [address]-95 100 MG Orally Two times per day PRN 1 capsule as needed Hydrochlorothiazide [facility] [address]-26 25 MG Orally Once a day 1 tablet Carafate [facility] [address]-92 1 GM Orally Four times a day 1 tablet on an empty stomach Zanaflex [facility] [address]-81 4 MG Orally every 8 hrs not defined Procedures Procedure Coding System Code Date MICROALBUMIN, SEMIQUANT CPT-4 83100 Apr 23, 2015 LAB NOT BILLED BY [facility] CPT-4 NOBLL Apr 23, 2015 GLYCATED HEMOGLOBIN TEST CPT-4 95573 Apr 23, 2015 Office Visit, Est Pt., Level 3 CPT-4 71442 Apr 23, 2015 [facility] VISIT ESTABLISHED PATIENT CPT-4 G0467 Apr 23, 2015 Vital Signs Date/Time: Apr 23, 2015 Temperature 98.5 F Weight 240.2 lbs Height 65 in BMI 39.97 Index Blood Pressure Diastolic 82 mmHg Blood Pressure Systolic 128 mmHg Cardiac Monitoring Heart Rate 76 bpm Results Name Result Date Reference Range Unit Abnormality Flag A1C (IN HOUSE) ----A1C IN HOUSE 6.6 [id number] 4.30 - 5.6 % ----Previous A1c 5.6 [id number] ----Lot # [id number] ----Exp date 20150423 MICROALBUMIN, URINE (IN HOUSE) ----CRE 100 [id number] ----ALB 30 [id number] ----A:C (IN HOUSE) 30-300 20150423 ----Clarity CLEAR 20150423 ----Color YELLOW [id number] ----Lot # [id number] ----Exp date 20150423 ----MICROALBUMIN ABNORMAL [id number] Summary Purpose [employer] Submission
--- OUTSIDE RECORDS SUMMARY | 2017-11-22 09:48 | XMS REPORT ---
Author Author KELSIE JENNIFER [facility] Address [address] [place] [address] Care Team Providers Care Rigger Chief Name Role Phone JENNIFER IGLESIAS Unavailable PROBLEMS Type Condition ICD9-CM Code JXR10-ST Code Onset Dates Condition Status SNOMED Code Problem Depressive disorder, not elsewhere classified F32.9 Active 55094419 Problem DM neuro manif type II E11.40 Active 92195000 Problem Diabetes mellitus, controlled E11.9 Active 299488159 Problem Anxiety disorder, unspecified F41.9 Active 064138570 Problem Abscess, ear canal H60.00 Active 42366738 Problem Type 2 diabetes mellitus without complications E11.9 Active 211032549 Problem Encounter for Zostavax administration Z23 Active 815674625 Problem Morbid obesity due to excess calories E66.01 Active 991426798 Problem Other infective otitis externa of left ear H60.392 Active 64339979 Problem Contusion of right foot, initial encounter S90.31XA Active 67927760 Problem DM neuro manif type II E11.49 Active 70227961 Problem High risk medication use Z79.899 Active 342299276001519 Problem Hyperlipidemia, unspecified hyperlipidemia type E78.5 Active 96931450 Problem Breast cancer screening Z12.31 Active 978346054 Problem Personal history of nicotine dependence Z87.891 Active 68722666 Problem Medicare annual wellness visit, initial Z00.00 Active 221492334 Problem Strep throat J02.0 Active 56377284 Problem Other microscopic hematuria R31.29 Active 342714664 Problem Other hammer toe(s) (acquired), left foot M20.42 Active 76110389 Problem Mild persistent asthma without complication J45.30 Active 080171176 Problem Essential hypertension I10 Active 39069465 Problem Pain in right ankle and joints of right foot M25.571 Active 356732156 Problem Pain in left ankle and joints of left foot M25.572 Active 631769794 Problem BMI 40.0-44.9, adult Z68.41 Active 136264532 Problem Other chronic pain G89.29 Active 52748732 Problem Gynecologic exam normal Z01.419 Active 268237882 Problem Breast cancer screening Z12.39 Active 005019432 Problem Other hammer toe(s) (acquired), right foot M20.41 Active 562228579 Problem Osteopenia M85.80 Active 516734557 Problem Anxiety associated with depression F41.8 Active 377411712 Problem Type 2 diabetes mellitus with diabetic neuropathy, without long-term current use of insulin E11.40 Active 79270476 Problem Creatinine elevation R79.89 Active 113775559 Problem Lobar pneumonia J18.1 Active 278071537 ALLERGIES No Information ENCOUNTERS Encounter Location Date Diagnosis [facility] [address] [id number], [place] [id number] September, [facility] [address] [facility] [address] [id number], [place] [address]13 Aug, Anxiety disorder, unspecified F41.9 [facility] [address] [address] Aug, [facility] [id number] [place] [address] 20 Aug, 2018 Onychocryptosis L60.0 and DM neuro manif type II E11.40 [facility] [address] [id number], [place] 376857337 12 Aug, 2018 Acute bronchitis due to other specified organisms J20.8 and BMI 40.0-44.9, adult Z68.41 [facility] [address] [id number] [address] 12 Aug, 2017 [facility] [address] [id number], [place] [address] Aug, [facility] [address] [id number], [place] [address] Aug, Onychocryptosis L60.0 [facility] [address] [id number], [place] [address] Aug, [facility] [address] [id number], [place] [address]96[address] Jul, Strep throat J02.0 ; Other microscopic hematuria R31.29 and BMI 40.0-44.9, adult Z68.41 [facility] [address] [id number][place] [address] Jul, [facility] [address] [id number], [place] [address]1647 Jun, [facility] [address] [id number], [place] [address] Jun, [facility] [address] [id number], [place] 605658146 Jun, Type 2 diabetes mellitus without complications E11.9 ; BMI 40.0- 44.9, adult Z68.41 ; Pain in right ankle and joints of right foot M25.571 ; Pain in left ankle and joints of left foot M25.572 and Other chronic pain G89.29 [facility] [address] [facility] [id number][place] [address] May, Onychomycosis B35.1 ; Onychocryptosis L60.0 and DM neuro manif type II E11.[address] [id number], [place] [address] May, [facility] [address] [id number], [place] 096637380 May, [facility] [address] [id number], [place] [address] Apr, Medicare annual wellness visit, initial Z00.00 ; Personal history of nicotine dependence Z87.891 ; Breast cancer screening Z12.31 and BMI 40.0- 44.9, adult Z68.41 [facility] [address] [id number], [place] [address] Apr, Anxiety disorder, unspecified F41.[address] [facility] [address] [id number] [place] [address] Feb, [facility] [address] [facility] [address] [facility] [id number], [place] [address] Feb, Onychomycosis B35.1 and DM neuro manif type II E11.40 [facility] [address] [address] [id number], [place] 313690578 Feb, Type 2 diabetes mellitus without complications E11.9 and Encounter for immunization Z23 [facility] [address] [id number], [place] 108181677 Jan, Anxiety disorder, unspecified F41.9 [facility] [address] [id number], [place] 8[address] Dec, [facility] [address] [facility] [address] [facility] [id number], [place] [address] Nov, Right foot sprain, initial encounter S93.601A ; Onychomycosis B35.1 and DM neuro manif type II E11.49 [facility] [address] [id number], [place] 62[address] Nov, Type 2 diabetes mellitus without complications E11.9 [facility] [address] [id number], [place] 081201772 Nov, [facility] [address] [id number], [place] 930331459 Nov, Type 2 diabetes mellitus without complications E11.9 [facility] [address] [id number], [place] 579[address]228 Nov, [facility] [address] [id number], [place] [address]65647962 Nov, [facility] [address] [id number], [place] 295203005 Nov, Type 2 diabetes mellitus without complications E11.9 ; Contusion of right foot, initial encounter S90.31XA and High risk medication use Z79.899 [facility] [address] [id number], [place] 417251260 Oct, High risk medication use Z79.899 [facility] [address] [facility] [address] [id number], [place] [address]63[address] Oct, Anxiety disorder, unspecified F41.9 [facility] [address] [facility] [address] [id number], [place] [address] September, Type 2 diabetes mellitus with diabetic neuropathy, without long- term current use of insulin E11.40 [facility] [address] [facility] [id number] [place] [address] Aug, Onychomycosis B35.1 ; DM neuro manif type II E11.40 and Other hammer toe(s) (acquired), right foot M20.41 [facility] [address] [facility] [address] [id number], [place] 100[address]18620 Aug, Type 2 diabetes mellitus without complications E11.9 ; Morbid obesity due to excess calories E66.01 and Encounter for immunization Z23 [facility] [address] [facility] [address] [id number], [place] [id number] Aug, [facility] [address] [facility] [address] [id number], [place] 858957965 Aug, Anxiety associated with depression F41.8 [facility] [address] [id number], [place] 560506197 Jul, Anxiety disorder, unspecified F41.9 [facility] [address] [place] [address] AV [id number], [place] 172930509 Jun, Anxiety associated with depression F41.8 [facility] [address] [facility] [address] [id number], [place] 164819025 Jun, Lobar pneumonia J18.1 [facility] [address] [facility] [address] [id number], [place] 658365684 Jun, Pneumonia of left lower lobe due to infectious organism J18.1 [facility] [address] [facility] [address] [id number], [place] [id number] Jun, [facility] [address] [id number], [place] [id number] Jun, [facility] [address] [facility] [address] [facility] [id number], [place] [address] May, Onychomycosis B35.1 ; Other hammer toe(s) (acquired), right foot M20.41 ; Other hammer toe(s) (acquired), left foot M20.42 and DM neuro manif type II E11.40 [facility] [address] [id number], [place] 714316722 May, [facility] [address] [id number], [place] 725162519 May, [facility] [address] [id number], [place] 408565467 May, [facility] [address] [id number], [place] 821248385 May, [facility] [address] [id number], [place] 384571735 May, Gynecologic exam normal Z01.419 ; Breast cancer screening Z12.39 and Creatinine elevation R79.89 [facility] [address] [id number], [place] 430839722 Apr, [facility] [address] [id number], [place] 468590182 Apr, Creatinine elevation R79.89 [facility] [address] [id number], [place] 179942918 Apr, DM neuro manif type II E11.40 and Osteopenia M85.80 [facility] [address] [facility] [address] [facility] [id number], [place] [address] Feb, Onychomycosis B35.1 and DM neuro manif type II E11.49 [facility] [address] [id number], [place] 392937762 Feb, [facility] [address] [id number], [place] 669558763 Jan, Mild persistent asthma without complication J45.30 ; Anxiety disorder, unspecified F41.9 and Essential hypertension I10 [facility] [address] [address] Jan, Anxiety disorder, unspecified F41.9 and Depressive disorder , not elsewhere classified F32.9 [facility] [address] [place] [address]- [address]858 Dec, Anxiety disorder, unspecified F41.9 and Depressive disorder , not elsewhere classified F32.9 [facility] [id number] [place] [address]73 -[address]286 Dec, Left elbow pain M25.522 [facility] [address] [place] [address]1818- 3114 Dec, Anxiety disorder, unspecified F41.9 and Depressive disorder , not elsewhere classified F32.9 [address] [place] [address] [place] [address]690- 3593 Nov, Anxiety disorder, unspecified F41.9 and Depressive disorder , not elsewhere classified F32.9 [address] [place] [address] [place] [address] 71374- 2112 Nov, Anxiety disorder, unspecified F41.9 and Depressive disorder , not elsewhere classified F32.9 [facility] [address] [facility] [address] [id number], [place] 780270185 Oct, Diabetes mellitus, controlled E11.9 ; Hyperlipidemia, unspecified hyperlipidemia type E78.5 ; Essential hypertension I10 and Mild persistent asthma without complication J45.30 [address] [place] [address] [place] [address]92- 7859 Oct, Anxiety disorder, unspecified F41.9 and Depressive disorder , not elsewhere classified F32.9 [address] [place] [address] [place] [address]78- 0067 September, Anxiety disorder, unspecified F41.9 and Depressive disorder , not elsewhere classified F32.9 [facility] [address] [id number], [place] [address] Aug, Onychomycosis B35.1 and DM neuro manif type II E11.40 [facility] [address] [id number], [place] 946754766 Aug, [facility] [address] [address] Aug, Anxiety disorder, unspecified F41.9 and Depressive disorder , not elsewhere classified F32.9 [facility] [address] [id number], [place] 817860766 Jul, Type 2 diabetes mellitus without complications E11.9 ; Encounter for Zostavax administration Z23 ; Morbid obesity due to excess calories E66.01 and Other infective otitis externa of left ear H60.392 [facility] [address] [id number], [place] [id number] Jul, [address] [address], [place] [address] Jul, [address] [place] [address], [place] [address] Jul, [facility] [address] [id number], [place] 727623180 Jun, [address] [address], [place] 34975[address]- [address] Jun, Anxiety disorder, unspecified F41.9 and Depressive disorder , not elsewhere classified F32.9 [facility] [address] [id number], [place] 867722758 Jun, Abscess, ear canal H60.00 [facility] [address] [id number], [place] 632137637 Jun, Abscess, ear canal H60.00 [facility] [address] [id number], [place] 083537050 04 Jun, 2015 [facility] [address] [id number] [address] May, Anxiety disorder, unspecified F41.9 and Depressive disorder , not elsewhere classified F32.9 [facility] [address] [facility] [address] [id number], [place] 900318965 Apr, Diabetes mellitus, controlled E11.9 and Breast cancer screening Z12.39 [facility] [address] [id number], [place] 137737305 Apr, Diabetes mellitus, controlled E11.9 ; Breast cancer screening Z12.39 and Morbid obesity due to excess calories E66.01 [facility] [address], [place] [address] 1773 Apr, Anxiety disorder, unspecified F41.9 and Depressive disorder , not elsewhere classified F32.9 [facility] [address] [facility] [address] [id number], [place] 799364166 Mar, [facility] [address] [place] [address] 24732- 4403 Mar, Encounter for immunization Z23 [facility] [address] [place] [address] 62781- 4314 Mar, Anxiety disorder, unspecified F41.9 and Depressive disorder , not elsewhere classified F32.9 [facility] [address] [id number], [place] [address]- [address]66 Feb, Foot ulcer, right L97.519 and DM neuro manif type II E11.40 [facility] [address] [id number], [place] [address]- [address] 24 Jan, 2015 Anxiety disorder, unspecified 300.00 and Depressive disorder , not elsewhere classified 311 [facility] [address] [facility] [id number], [place] [id number] 15 Jan, 2015 [facility] [address] [place] [address] 32762- 8346 Jan, Cellulitis of right foot 682.7 ; Onychomycosis 110.1 ; Neuropathy 355.9 and Foot ulcer 707.15 [address] [address], [place] 624879- 9655 Jan, Anxiety disorder, unspecified 300.00 and Depressive disorder , not elsewhere classified [address] [id number], [place] 436482002 Jan, Anxiety disorder, unspecified 300.00 ; Shortness of breath 786.05 and Coronary atherosclerosis of unspecified type of vessel, [place] or graft 414.00 [address] [place] [address] [place] [address]54- 8439 Dec, Anxiety disorder, unspecified 300.00 and Depressive disorder , not elsewhere classified [id number] [place] [address] 80918- 2820 Dec, Anxiety disorder, unspecified 300.00 and Depressive disorder , not elsewhere classified [address] [id number], [place] 205472099 Nov, [place] [id number] [place] [address] 50970- 0932 Nov, Anxiety disorder, unspecified 300.00 and Depressive disorder , not elsewhere classified [address] [place], [place] [address] [id number], [place] 349775647 Nov, Shortness of breath 786.05 and Morbid obesity 278.01 [place] [address], [place] [address]- 3971 Nov, Anxiety disorder, unspecified 300.00 and Depressive disorder , not elsewhere classified [address] [place], [place] [address] [id number], [place] 741464689 Oct, Asthma, moderate persistent 493.90 [address] [place] [address] [place] [address] 476547- 1468 Oct, Anxiety disorder, unspecified 300.00 and Depressive disorder , not elsewhere classified 311 [facility] [address] [id number], [place] [address]- [address] September, Hammertoe 735.4 ; Onychomycosis 110.1 and Type I diabetes mellitus with neurological manifestations 250.61 [facility] [address] [id number], [place] 298119221 September, [facility] [address], [place] [address]- 7086 September, Anxiety disorder, unspecified 300.00 and Depressive disorder , not elsewhere classified 311 [facility] [address] [id number], [place] 360825268 September, Diabetes type 2, controlled 250.00 ; Asthma, mild persistent 493.90 and Dermatitis, contact 692.9 [facility] [address] [facility] [address] [id number], [place] 618422284 September, [facility] [address], [place] [address]- [address] September, Anxiety state, unspecified 300.00 and Depressive disorder, not elsewhere classified 311 [facility] [address], [place] [address]- 8399 Aug, [facility] [address], [place] [address]- 6461 Aug, [facility] [address]100[place], [place] [address]- 9643 Jul, [facility] [address], [place] 09420816- 2501 Jul, [facility] [address]100[place], [place] [address]- 0491 Jul, [facility] [address]100[place], [place] 43105095- 3373 Jul, [facility] [address], [place] [address]- 2923 Jul, [facility] [place] [facility] [address] [id number] [place] [address]- 4152 13 Jul, 2014 [facility] [place] [facility] [address] [id number] [place] [address]- 5336 02 Jul, 2014 [facility] [place] [facility] [address] [id number] [place] [address]- 0062 Jul, 2014 [facility] [place] [facility] [address] [id number] [place] [address]- 3825 Jun, 2014 [facility] [place] [facility] [address] [id number] [place] [address]- 4930 27 Jun, 2014 [facility] [place] [facility] [address] [id number] [place] [address]- 5896 20 Jun, 2014 [facility] [place] [facility] [address] [facility] [address] [facility] [id number] [place] [address]- 9931 20 Jun, 2014 [facility] [place] [facility] [address] [facility] [address] [facility] [id number] [place] [address]- 8227 17 Jun, 2014 [facility] [place] [facility] [address] [facility] [address] [facility] [id number] [place] [address]- 0862 17 Jun, 2014 [facility] [place] [facility] [address] [facility] [address] [facility] [id number] [place] [address]- 1929 16 Jun, 2014 [facility] [place] [facility] [address] [facility] [address] [facility] [id number] [place] [address]- 0297 16 Jun, 2014 [facility] [place] [facility] [address] [facility] [address] [facility] [id number] [place] [address]- 3332 11 Jun, 2014 [facility] [place] [facility] [address] [facility] [address] [facility] [id number] [place] [address]- 2546 11 Jun, 2014 [facility] [place] [facility] [address] [id number] [place] [address]- 1246 10 Jun, 2014 [facility] [place] [facility] [address] [facility] [address] [facility] [id number] [place] [address]- 8036 10 Jun, 2014 [facility] [place] [facility] [address] [facility] [address] [facility] [id number] [place] [address]- 5629 Jun, [facility] [address] [id number] [place] [address]- 5668 Jun, [facility] [address] [id number] [place] [address]- 6582 May, [facility] [address] [id number] [place] [address]- 6560 May, [facility] [address] [id number] [place] [address]- 3509 May, [facility] [address] [id number] [place] [address]- 4368 May, [facility] [address] [id number] [place] [address]- 1194 May, [facility] [address] [id number] [place] [address]- 1581 May, [facility] [address] [id number] [place] [address]- 0327 May, [facility] [address] [id number] [place] [address]- 6851 May, [facility] [address] [id number] [place] [address]- 5427 Apr, [facility] [address] [id number] [place] [address]- 5714 Apr, [facility] [address] [id number] [place] [address]- 7770 Apr, [facility] [place] [facility] [address] [id number] [place] [address]- [address] Apr, [facility] [address] [id number] [place] [address] Apr, [facility] [address] [id number] [place] [address] Apr, [facility] [place] [facility] [address] [id number] [place] [address] 15 Apr, 2014 [facility] [place] [facility] [address] [id number] [place] [address] 15 Apr, 2014 [facility] [place] [facility] [address] [id number] [place] [address] Apr, [facility] [place] [facility] [address] [id number] [place] [address] Apr, [facility] [place] [facility] [address] [id number] [place] [address] Apr, [facility] [place] [facility] [address] [id number] [place] [address] Apr, [facility] [place] [facility] [address] [id number] [place] [address] Mar, [facility] [place] [facility] [address] [id number] [place] [address] Mar, [facility] [place] [facility] [address] [id number] [place] [address] Mar, [facility] [place] [facility] [address] [id number] [place] [address] Mar, [facility] [place] [facility] [address] [id number] [place] [address] Mar, [facility] [place] [facility] [address] [id number] [place] [address] Mar, [facility] [place] [facility] [address] [id number] [place] [address] Mar, [facility] [place] [facility] [address] [id number] [place] [address] Mar, [facility] [place] [facility] [address] [id number] [place] [address]33 Feb, [facility] [place] [facility] [address] [id number] [address] Feb, [facility] [place] [facility] [address] [id number] [place] [address] 17 Feb, 2014 [facility] [place] [facility] [address] [id number] [place] [address] 2633 17 Feb, 2014 [facility] [place] [facility] [address] [id number] [place] [address] 3043 Feb, [facility] [place] [facility] [address] [id number] [place] [address]- 7774 Feb, [facility] [place] [facility] [address] [id number] [place] [address] 3515 Feb, [facility] [place] [facility] [address] [id number] [place] [address]- 6045 Feb, [facility] [place] [facility] [address] [id number] [place] [address]- 2349 19 Jan, 2014 [facility] [place] [facility] [address] [id number] [place] [address] 5450 19 Jan, 2013 [facility] [place] [facility] [address] [id number] [place] [address] 7122 17 Jan, 2014 [facility] [place] [facility] [address] [id number] [place] [address]- 9958 17 Jan, 2013 [facility] [place] [facility] [address] [id number] [address] 3892 16 Jan, 2013 [facility] [place] [facility] [address] [id number] [address]- 4298 16 Sep, 2013 [facility] [place] [facility] [address] [id number] [address]- 4993 15 Sep, 2013 [facility] [place] [facility] [address] [id number] [address]- 2796 15 Sep, 2013 [facility] [place] [facility] [address] [id number] [place] [address]- 1379 15 Jan, 2013 [facility] [place] [facility] [address] [id number] [place] [address]- 5673 15 Jan, 2014 [facility] [place] [facility] [address] [id number] [place] [address]- 3292 09 Jan, 2014 [facility] [place] [facility] [address] [id number] [place] [address]- 9826 Jan, [facility] [place] [facility] [address] [id number] [place] [address]- 8055 Dec, [facility] [place] [facility] [address] [id number] [place] [address]- 7679 Dec, [facility] [place] [facility] [address] [id number] [place] [address]- 3672 Dec, [facility] [place] [facility] [address] [id number] [place] [address]- 1715 Dec, [facility] [place] [facility] [address] [id number] [place] [address]- 7291 Nov, [facility] [place] [facility] [address] [id number] [place] [address]- 2131 Nov, [facility] [place] [facility] [address] [id number] [place] [address]- 8584 Nov, [facility] [place] [facility] [address] [id number] [place] [address]- 7593 Nov, [facility] [place] [facility] [address] [id number] [place] [address]- 2059 Oct, [facility] [place] [facility] [address] [id number] [place] [address]- 4548 Oct, [facility] [place] [facility] [address] [id number] [place] [address]- 4978 Oct, [facility] [place] [facility] [address] [id number] [place] [address]- 9074 Oct, [facility] [place] [facility] [address] [id number] [place] [address]- 8082 Oct, [facility] [place] [facility] [address] [id number] [place] [address]- 0491 Oct, [facility] [place] [facility] [address] [id number] [place] [address]- 2386 Oct, [facility] [place] [facility] [address] [id number] [place] [address]- 4514 Oct, [facility] [place] [facility] [address] [id number] [place] [address]- 5511 Oct, [facility] [place] [facility] [address] [id number] [place] [address]- 8383 Oct, [facility] [place] [facility] [address] [id number] [place] [address]- 0754 September, [facility] [place] [facility] [address] [id number] [place] [address]- 5460 September, [facility] [place] [facility] [address] [id number] [place] [address]- 4059 September, [facility] [place] [facility] [address] [id number] [place] [address]- 7356 September, [facility] [place] [facility] [address] [id number] [place] [address]- 1937 September, [facility] [place] [facility] [address] [id number] [place] [address]- 0905 September, [facility] [place] [facility] [address] [id number] [place] [address]- 6338 September, [facility] [place] [facility] [address] [id number] [place] [address]- 2058 September, [facility] [place] [facility] [address] [id number] [place] [address]- 6668 Aug, [facility] [place] [facility] [address] [id number] [place] [address]- 7993 Aug, [facility] [place] [facility] [address] [id number] [place] [address]- 6723 Aug, [facility] [place] [facility] [address] [id number] [place] [address]- 8822 Aug, [facility] [place] [facility] [address] [id number] [place] [address]- 3792 Aug, [facility] [place] [facility] [address] [id number] [place] [address]- 5366 Aug, [facility] [place] [facility] [address] [id number] [place] [address]- 3221 Aug, [facility] [place] [facility] [address] [id number] [place] [address]- 3962 Aug, [facility] [place] [facility] [address] [id number] [place] [address]- 8738 Aug, [facility] [place] [facility] [address] [id number] [place] [address]- 5460 Jul, [facility] [place] [facility] [address] [id number] [place] [address]- 6919 Jul, [facility] [place] [facility] [address] [id number] [place] [address]- 5742 Jul, [facility] [place] [facility] [address] [id number] [place] [address]- 7931 Jul, [facility] [place] [facility] [address] [id number] [place] [address]- 6103 Jul, [facility] [place] [facility] [address] [id number] [place] [address]- 0297 Jul, [facility] [place] [facility] [address] [id number] [place] [address]- 2098 Jul, [facility] [place] [facility] [address] [id number] [place] [address]- 8475 Jul, [facility] [place] [facility] [address] [id number] [place] [address]- 4904 Jul, [facility] [place] [facility] [address] [id number] [place] [address]- 2614 18 Jul, 2013 [facility] [place] [facility] [address] [id number] [place] [address]- 6531 Jul, [facility] [place] [facility] [address] [id number] [place] Jul, [facility] [place] [facility] [address] [id number] [place] [address]- 9641 Jul, [facility] [place] [facility] [address] [id number] [place] [address]- 5146 Jul, [facility] [place] [facility] [address] [id number] [place] [address]- 4254 Jul, [facility] [place] [facility] [address] [id number] [place] [address]- 0838 Jul, [facility] [place] [facility] [address] [id number] [place] [address]- 6099 Jul, [facility] [place] [facility] [address] [id number] [place] [address]- 5690 Jul, [facility] [place] [facility] [address] [id number] [place] [address]- 4016 Jul, [facility] [place] [facility] [address] [id number] [place] [address]- 6569 Jul, [facility] [place] [facility] [address] [id number] [place] [address]- 3042 Jun, [facility] [place] [facility] [address] [id number] [place] [address]- 8436 Jun, [facility] [place] [facility] [address] [id number] [place] [address]- 9669 Jun, [facility] [place] [facility] [address] [id number] [place] [address] Jun, [facility] [place] [facility] [address] [id number] [place] [address]- 5796 Jun, [facility] [place] [facility] [address] [id number] [place] [address]- 8516 Jun, [facility] [place] [facility] [address] [id number] [place] [address]- 4606 Jun, [facility] [place] [facility] [address] [id number] [place] [address]- 9126 Jun, [facility] [place] [facility] [address] [id number] [place] [address]- 7546 Jun, [facility] [place] [facility] [address] [id number] [place] [address]- 7600 Jun, [facility] [place] [facility] [address] [id number] [place] [address]- 0633 Jun, [facility] [place] [facility] [address] [id number] [place] [address]- 9658 Jun, [facility] [place] [facility] [address] [id number] [place] [address]- 2057 May, [facility] [place] [facility] [address] [id number] [place] [address]- 1180 May, [facility] [place] [facility] [address] [address] [facility] [id number] [place] [address]- 7545 May, [facility] [place] [facility] [address] [id number] [place] [address]- 4016 May, [facility] [place] [facility] [address] [id number] [place] [address]- 2334 May, [facility] [place] [facility] [address] [id number] [place] [address]- 2352 May, [facility] [place] [facility] [address] [id number] [place] [address]- 9815 May, [facility] [place] [facility] [address] [id number] [place] [address]- 6046 May, [facility] [place] [facility] [address] [id number] [place] [address]- 0465 May, [facility] [address] [id number] [place] [address]- 8220 May, [facility] [address] [id number] [place] [address]- 7008 May, [facility] [address] [id number] [place] [address]- 6337 May, [facility] [address] [id number] [place] [address]- 1242 May, [facility] [address] [id number] [place] [address]- 6855 May, [facility] [address] [id number] [place] [address]- 5140 Apr, [facility] [address] [id number] [place] [address]- 5960 27 Apr, 2013 [facility] [address] [id number] [place] [address]- 9504 17 Apr, 2013 [facility] [address] [id number] [place] [address]- 6502 17 Apr, 2013 [facility] [address] [id number] [place] [address]- 2666 16 Apr, 2013 [facility] [place] [facility] [address] [id number] [place] [address]- 5243 16 Apr, 2013 [facility] [place] [facility] [address] [id number] [place] [address]- 2609 12 Apr, 2013 [facility] [place] [facility] [address] [id number] [place] [address]- 7929 12 Apr, 2013 [facility] [place] [facility] [address] [id number] [place] [address]- 8226 11 Apr, 2013 [facility] [place] [facility] [address] [id number] [address]- 2717 Apr, [facility] [place] [facility] [address] [id number] [place] [address]- 5854 Apr, [facility] [place] [facility] [address] [id number], [place] [address]- 5103 Apr, [facility] [place] [facility] [address] [id number] [place] [address]- 8283 Mar, [facility] [place] [facility] [address] [id number] [address]- 6649 Mar, [facility] [place] [facility] [address] [id number] [place] [address]- 8128 Mar, [facility] [place] [facility] [address] [id number], [place] [address]- 7488 Mar, [facility] [place] [facility] [address] [id number], [place] [address]- 0383 Mar, [facility] [place] [facility] [address] [id number], [place] [address]- 8949 Mar, [facility] [place] [facility] [address] [id number], [place] [address]- 1473 Mar, [facility] [place] [facility] [address] [id number] [address]- 0547 Mar, [facility] [place] [facility] [address] [id number], [place] [address]- 6496 Mar, [facility] [place] [facility] [address] [id number] [address]- 5917 Mar, [facility] [place] [facility] [address] [id number][place] [address]- 4905 Mar, [facility] [place] [facility] [address] [id number], [place] [address]- 0282 Mar, [facility] [place] [facility] [address] [id number], [place] [address]- 2201 Feb, [facility] [place] [facility] [address] [id number], [place] [address]- 4635 Feb, [facility] [address] [id number][place] [id number] Feb, [facility] [address] [id number], [place] [address]- 5895 Feb, [facility] [address] [id number], [place] [address]- 3072 Feb, [facility] [place] [facility] [address] [id number], [place] [address]- 6773 Feb, [facility] [address] [address] [facility] [id number], [place] [address]- 1949 Feb, [facility] [place] [facility] [address] [facility] [id number], [place] [address]- 5973 Feb, [facility] [address] [facility] [id number], [place] [address]- 4261 Feb, [facility] [place] [facility] [address] [facility] [id number], [place] [address]- 0739 Feb, [facility] [place] [facility] [address] [facility] [id number], [place] [address]- 8782 Feb, [facility] [address] [facility] [id number], [place] [address]- 3165 Feb, [facility] [place] [facility] [address] [facility] [id number], [place] [address]- 8623 Feb, [facility] [place] [facility] [address] [facility] [id number], [place] [address]- 8437 Jan, [facility] [address] [id number][place] [id number] Jan, [facility] [address] [id number][place] [id number] 16 Jan, 2013 [facility] [address] [id number][place] [address] Jan, [facility] [address] [id number][place] [address] Jan, [facility] [place] [facility] [address] [id number] [place] [address]- 6143 Jan, [facility] [address] [id number] [place] [address] Jan, [facility] [place] [facility] [address] [id number] [place] [address]- 0336 Dec, [facility] [place] [facility] [address] [id number] [place] [address]- 2452 Dec, [facility] [place] [facility] [address] [id number] [place] [address]- 4673 Dec, [facility] [address] [id number] [place] [address] Dec, [facility] [address] [id number] [place] [address] Dec, [facility] [address] [id number] [place] [address] Dec, [facility] [place] [facility] [address] [id number] [place] [address]- 9047 Dec, [facility] [place] [facility] [address] [address] [facility] [id number] [place] [address]- 4390 Dec, [facility] [address] [id number] [place] [address] Dec, [facility] [place] [facility] [address] [facility] [id number] [place] [address]- 4448 Dec, [facility] [place] [facility] [address] [id number], [place] [address]- 9648 Nov, [facility] [place] [facility] [address] [facility] [id number] [place] [address]- 5361 Nov, [facility] [place] [facility] [address] [facility] [id number] [place] [address]- 1840 Nov, [facility] [address] [id number] [place] [address] Nov, [facility] [address] [id number] [place] [address] Oct, [facility] [address] [id number] [place] [address] Oct, [facility] [place] [facility] [address] [facility] [id number] [place] [address]- 5936 Oct, [facility] [place] [facility] [address] [facility] [id number] [place] [address]- 4277 Oct, [facility] [place] [facility] [address] [facility] [id number] [place] [address]- 1881 Oct, [facility] [address] [id number] [place] [address] Oct, [facility] [place] [facility] [address] [id number] [place] [address]- 1932 Oct, [facility] [address] [id number] [place] [address] Oct, [facility] [address] [id number][place] [id number] September, [facility] [place] [facility] [address] [facility] [id number], [place] [address]- 4723 September, [facility] [address] [facility] [id number][place] [id number] September, [facility] [place] [facility] [address] [facility] [id number], [place] [address]- 2926 September, [facility] [place] [facility] [address] [facility] [id number], [place] [address]- 5636 September, [facility] [place] [facility] [address] [facility] [id number], [place] [address]- 0522 September, [facility] [address] [facility] [id number] [place] [id number] September, [facility] [place] [facility] [address] [facility] [id number] [place] [address]- 2495 September, [facility] [place] [facility] [address] [id number], [place] [address]- 0838 September, [facility] [address] [id number], [place] [address]- 5246 Aug, [facility] [address] [id number] [place] [id number] Aug, [facility] [address] [id number] [place] [address] Aug, [facility] [address] [facility] [id number] [place] [address]- 2546 Aug, [facility] [address] [id number] [place] [address]- 2546 17 Aug, 2012 [facility] [address] [id number] [place] [id number] 15 Aug, 2012 [facility] [address] [facility] [id number] [place] [id number] Aug, [facility] [address] [facility] [id number] [address] Aug, [facility] [address] [facility] [id number] [address] Aug, [facility] [address] [facility] [id number] [address] Jul, [facility] [address] [facility] [id number] [place] [id number] Jul, [facility] [address] [facility] [id number] [address] Jul, [facility] [place] [facility] [address] [facility] [id number] [address] Jul, [facility] [place] [facility] [address] [id number] [address] Jul, [facility] [place] [facility] [address] [facility] [id number] [address] 08 Jul, 2012 [facility] [place] [facility] [address] [facility] [id number] [address] Jul, [facility] [address] [facility] [id number] [address] Jul, [facility] [address] [facility] [id number] [place] [id number] Jul, [facility] [address] [facility] [id number][place] [id number] Jun, [facility] [address] [facility] [id number], [place] [address] Jun, [facility] [address] [facility] [id number][place] [id number] Jun, [facility] [address] [facility] [id number] [place] [address] Jun, [facility] [address] [id number], [place] [address] May, [facility] [id number], [place] [address] May, [facility] [address] [facility] [id number][place] [id number] May, [facility] [address] [facility] [id number][place] [id number] May, [facility] [id number] [address] May, [facility] [address] [id number][place] [id number] May, [facility] [id number] [address] May, [facility] [address] [facility] [id number], [place] [address] May, [facility] [address] [facility] [id number][place] [id number] Apr, [facility] [address] [facility] [id number][place] [id number] Apr, [facility] [address] [id number], [place] [address] Apr, [facility] [place] [facility] [address] [id number] [place] [address] Apr, [facility] [place] [facility] [address] [id number] [place] [address] Apr, [facility] [place] [facility] [address] [id number] [place] [address] Apr, [facility] [address] [facility] [id number][place] [address] Apr, [facility] [place] [facility] [address] [id number] [place] [address] Apr, [facility] [place] [facility] [address] [id number] [place] [address] Apr, [facility] [place] [facility] [address] [facility] [id number] [place] [address] Apr, [facility] [address] [id number][place] [id number] Apr, [facility] [place] [facility] [address] [id number] [place] [address] Apr, [facility] [place] [facility] [address] [facility] [id number] [place] [address] Apr, [facility] [place] [facility] [address] [facility] [id number][place] [address] Apr, [facility] [place] [facility] [address] [id number] [place] [address] Mar, [facility] [place] [facility] [address] [id number][place] [address] Mar, [facility] [place] [facility] [address] [id number] [place] [address] Mar, [facility] [place] [facility] [address] [facility] [id number] [place] [address] Mar, [facility] [address] [facility] [id number][place] [address] Mar, [facility] [place] [facility] [address] [facility] [id number], [place] [address] Mar, [facility] [address] [facility] [id number][place] [address] Mar, [facility] [place] [facility] [address] [facility] [id number], [place] [address] Mar, [facility] [address] [facility] [id number], [place] [id number] Feb, [facility] [place] [facility] [address] [facility] [id number], [place] [address] Feb, [facility] [place] [facility] [address] [facility] [id number], [place] [address] Feb, [facility] [place] [facility] [address] [facility] [id number][place] [address] Feb, [facility] [place] [facility] [id number], [place] [address] Jan, [facility] [id number], [place] [id number] Jan, [facility] [place] [facility] [address] [facility] [id number], [place] [address] Jan, [facility] [place] [facility] [address] [id number], [place] [address] Jan, [facility] [place] [facility] [address] [id number], [place] [address] 05 Jan, 2012 [facility] [address] [facility] [id number], [place] [id number] Jan, [facility] [place] [facility] [address] [facility] [id number], [place] [address] Dec, [facility] [address] [facility] [id number][place] [id number] Dec, [facility] [place] [facility] [address] [facility] [id number], [place] [address] Dec, [facility] [facility] [address] [facility] [id number], [place] [address] Dec, [facility] [place] [facility] [address] [id number] [place] [address] Nov, [facility] [place] [facility] [address] [facility] [id number] [place] [address] Nov, [facility] [place] [facility] [address] [facility] [id number] [place] [address] Nov, [facility] [address] [facility] [id number][place] [id number] Nov, [facility] [place] [facility] [address] [facility] [id number] [place] [address] Nov, [facility] [address] [facility] [id number][place] [id number] Nov, [facility] [place] [facility] [address] [facility] [id number] [place] [address] Nov, [facility] [facility] [address] [facility] [id number], [place] [address] Nov, [facility] [facility] [address] [facility] [id number] [place] [address] Nov, [facility] [place] [facility] [address] [facility] [id number], [place] [address] Oct, [facility] [address] [facility] [id number], [place] [address] Oct, [facility] [address] [facility] [id number][place] [id number] Oct, [facility] [address] [id number][place] [id number] Oct, [facility] [address] [facility] [id number] [place] [id number] Oct, [facility] [address] [facility] [id number] [place] [address] Oct, [facility] [address] [facility] [id number], [place] [address] Oct, [facility] [facility] [address] [id number] [place] [address] Oct, [facility] [address] [id number] [place] [address] September, [facility] [address] [id number] [place] [address] September, [facility] [address] [id number] [place] [address] September, [facility] [address] [id number] [place] [address] Aug, [facility] [address] [id number] [place] [address] Aug, [facility] [address] [id number] [place] [address] Aug, [facility] [address] [id number] [address] Aug, [facility] [address] [id number], [place] [address] Aug, [facility] [id number] [id number] Jul, [facility] [address] [id number], [place] [address] Jul, [facility] [address] [id number], [place] [address] Jun, [facility] [address] [id number], [place] [address] Jun, [facility] [address] [id number] [place] [address] 13 Jun, 2011 [facility] [address] [id number], [place] [address] Jun, [facility] [address] [id number], [place] [address] Jun, [facility] [address] [id number] [place] [address] May, [facility] [address] [id number] [place] [address] May, [facility] [address] [id number] [place] [address] May, [facility] [address] [id number] [place] [address] May, [facility] [address] [id number] [place] [address] May, [facility] [address] [id number] [place] [address] 15[address] May, [facility] [address] [id number] [place] [address] May, [facility] [address] [id number] [place] [address] May, [facility] [address] [id number] [place] [address] Apr, [facility] [address] [id number] [place] [address] Apr, [facility] [address] [id number], [place] [address] 16 Apr, 2011 [facility] [address] [id number] [place] [address] 15 Apr, 2011 [facility] [address] [id number] [place] [address] 13 Apr, 2011 [facility] [address] [id number] [place] [address] 05 Apr, 2011 [facility] [address] [id number] [place] [address]- [address] 22 Mar, 2011 [facility] [address] [id number] [place] [address] 21 Mar, 2011 [facility] [address] [id number] [place] [address] 15 Mar, 2011 [facility] [address] [id number] [place] [address] 1546 14 Mar, 2011 [facility] [address] [id number] [place] [address] 14 Mar, 2011 [facility] [address] [id number] [place] [address] 07 Mar, 2011 [facility] [address] [id number] [place] [address]- 3527 04 Mar, 2011 [facility] [address] [id number] [place] [address] 1747 Mar, [facility] [address] [id number] [place] [address]- 2688 14 Feb, 2011 [facility] [address] [id number] [place] [address] 1261 16 Jun, 2010 [facility] [address] [id number] [place] [address] May, [facility] [address] [id number] [place] [address]- 2410 13 May, 2010 [facility] [address] [id number] [place] [address]- [address]111 Apr, [facility] [address] [id number] [place] [address]- 9257 Apr, [facility] [address] [id number] [place] [address]- 6005 Apr, [facility] [address] [id number] [place] [address]- 4[address] 24 Mar, 2010 [facility] [address] [id number] [place] [address]- 0238 15 Mar, 2010 [facility] [address] [id number] [place] [address]- 5797 08 Mar, 2010 [facility] [address] [id number] [place] [address]- 50[address] Mar, [facility] [address] [id number] [place] [address]- 8755 Mar, [facility] [address] [id number] [place] [address]- 7928 Feb, [facility] [address] [id number] [place] [address]- 0561 Feb, [facility] [address] [id number], [place] [address] 69[address] Oct, [facility] [address] [id number] [place] [address] 8538 September, [facility] [address] [id number], [place] [address] 6370 Apr, [facility] [address] [id number], [place] [address]- [address] Apr, [facility] [address] [id number], [place] [address]- 3835 Mar, [facility] [address] [id number], [place] [address]- 0964 Mar, [facility] [address] [id number], [place] [address]- 7256 Mar, [facility] [address] [id number], [place] [address]- 6093 Mar, [facility] [address] [id number], [place] [address]- 8748 Mar, [facility] [address] [id number], [place] [address] Feb, [facility] [address] [facility] [id number] [place] [address] Feb, [facility] [address] [facility] [id number] [place] [address] Jan, [facility] [address] [facility] [id number] [place] [address] 4668 Oct, IMMUNIZATIONS No Known Immunizations SOCIAL HISTORY [...]
--- OUTSIDE RECORDS SUMMARY | 2017-11-22 09:49 | XMS REPORT ---
Author Author TRAE ELZA Organization [facility] [place] Address [address] [place] [address] Care Team Providers Care Pet Care Attendant Name Role Phone ELZA LARKIN Unavailable PROBLEMS Type Condition ICD9-CM Code QXI45-MY Code Onset Dates Condition Status SNOMED Code Problem Osteopenia M85.80 Active 805853602 Problem Gynecologic exam normal Z01.419 Active 574584721 Problem Breast cancer screening Z12.39 Active 911117441 Problem Contusion of right foot, initial encounter S90.31XA Active 56270585 Problem Abscess, ear canal H60.00 Active 79247905 Problem High risk medication use Z79.899 Active 564524657378106 Problem Diabetes mellitus, controlled E11.9 Active 392580232 Problem Depressive disorder, not elsewhere classified F32.9 Active 09938629 Problem Lobar pneumonia J18.1 Active 765882252 Problem Creatinine elevation R79.89 Active 174244271 Problem Type 2 diabetes mellitus with diabetic neuropathy, without long-term current use of insulin E11.40 Active 16256627 Problem Anxiety associated with depression F41.8 Active 165033653 Problem Encounter for Zostavax administration Z23 Active 012433480 Problem Other infective otitis externa of left ear H60.392 Active 91447046 Problem Type 2 diabetes mellitus without complications E11.9 Active 021035896 Problem Morbid obesity due to excess calories E66.01 Active 371907398 Problem Mild persistent asthma without complication J45.30 Active 036521032 Problem Essential hypertension I10 Active 76226918 Problem DM neuro manif type II E11.40 Active 77958017 Problem DM neuro manif type II E11.49 Active 33048530 Problem Other hammer toe(s) (acquired), left foot M20.42 Active 81637370 Problem Anxiety disorder, unspecified F41.9 Active 599320121 Problem Hyperlipidemia, unspecified hyperlipidemia type E78.5 Active 10003091 Problem Other hammer toe(s) (acquired), right foot M20.41 Active 078612124 ALLERGIES No Information SOCIAL HISTORY Never Assessed PLAN OF CARE Activity Details Follow Up 3 Months Reason: VITAL SIGNS Height 65 in 2016-08-26 Blood pressure systolic 120 mmHg 2016-08-26 Blood pressure diastolic 84 mmHg 2016-08-26 MEDICATIONS Unknown Medications RESULTS No Results PROCEDURES Procedure Date Ordered Result Body Site DEBRIDE NAIL, 6 OR MORE August 26, 2016 [facility] VISIT ESTABLISHED PATIENT August 26, 2016 IMMUNIZATIONS No Known Immunizations MEDICAL (GENERAL) [...]
--- OUTSIDE RECORDS SUMMARY | 2017-11-22 09:49 | XMS REPORT ---
Author Author KELSIE JENNIFER [facility] Address [address] [place] [address] Care Team Providers Care Conformal Pad Former Name Role Phone JENNIFER IGLESIAS Unavailable PROBLEMS Type Condition ICD9-CM Code VRU81-PG Code Onset Dates Condition Status SNOMED Code Problem Depressive disorder, not elsewhere classified F32.9 Active 78514126 Problem DM neuro manif type II E11.40 Active 82031135 Problem Diabetes mellitus, controlled E11.9 Active 637132204 Problem Anxiety disorder, unspecified F41.9 Active 679580487 Problem Abscess, ear canal H60.00 Active 22375311 Problem Type 2 diabetes mellitus without complications E11.9 Active 285471824 Problem Encounter for Zostavax administration Z23 Active 377714815 Problem Morbid obesity due to excess calories E66.01 Active 847086441 Problem Other infective otitis externa of left ear H60.392 Active 10510491 Problem Contusion of right foot, initial encounter S90.31XA Active 84773383 Problem DM neuro manif type II E11.49 Active 80095651 Problem High risk medication use Z79.899 Active 355172638218583 Problem Hyperlipidemia, unspecified hyperlipidemia type E78.5 Active 79514514 Problem Breast cancer screening Z12.31 Active 984698905 Problem Personal history of nicotine dependence Z87.891 Active 94312593 Problem Medicare annual wellness visit, initial Z00.00 Active 067054479 Problem Strep throat J02.0 Active 64258370 Problem Other microscopic hematuria R31.29 Active 385097936 Problem Other hammer toe(s) (acquired), left foot M20.42 Active 50304040 Problem Mild persistent asthma without complication J45.30 Active 152292601 Problem Essential hypertension I10 Active 46676262 Problem Pain in right ankle and joints of right foot M25.571 Active 414614630 Problem Pain in left ankle and joints of left foot M25.572 Active 297830851 Problem BMI 40.0-44.9, adult Z68.41 Active 036583885 Problem Other chronic pain G89.29 Active 85208693 Problem Gynecologic exam normal Z01.419 Active 932250423 Problem Breast cancer screening Z12.39 Active 755902946 Problem Other hammer toe(s) (acquired), right foot M20.41 Active 618249820 Problem Osteopenia M85.80 Active 716037205 Problem Anxiety associated with depression F41.8 Active 919710313 Problem Type 2 diabetes mellitus with diabetic neuropathy, without long-term current use of insulin E11.40 Active 84224635 Problem Creatinine elevation R79.89 Active 791626889 Problem Lobar pneumonia J18.1 Active 934794483 ALLERGIES No Information ENCOUNTERS Encounter Location Date Diagnosis [facility] [address] [address] Aug, [facility] [id number] [place] [address]- 2041 Aug, Onychocryptosis L60.0 [facility] [address] [id number], [place] [address] Aug, [facility] [address] [id number], [place] [address]68[address] Jul, Strep throat J02.0 ; Other microscopic hematuria R31.29 and BMI 40.0-44.9, adult Z68.41 [facility] [address] [id number], [place] [address] Jul, [facility]ITALIowa Approach[facility] [employer] [id number], [place] [address] Jun, [facility] [id number], [place] [address] Jun, [facility] [id number], [place] [address] Jun, 2018 Type 2 diabetes mellitus without complications E11.9 ; BMI 40.0- 44.9, adult Z68.41 ; Pain in right ankle and joints of right foot M25.571 ; Pain in left ankle and joints of left foot M25.572 and Other chronic pain G89.29 [facility] [address] [facility] [id number] [address] May, Onychomycosis B35.1 ; Onychocryptosis L60.0 and DM neuro manif type II E11.[address] [id number], [place] [address] May, [address] [id number], [place] [address] May, [address] [id number], [place] 3078427[address] Apr, Medicare annual wellness visit, initial Z00.00 ; Personal history of nicotine dependence Z87.891 ; Breast cancer screening Z12.31 and BMI 40.0- 44.9, adult Z68.[address] [id number], [place] [address]40[address] Apr, Anxiety disorder, unspecified F41.[address] [id number], [place] [address] Feb, [place] [address] [address] Feb, Onychomycosis B35.1 and DM neuro manif type II E11.[address] [id number], [place] 962375[address] Feb, Type 2 diabetes mellitus without complications E11.9 and Encounter for immunization Z23 [address] [id number], [place] 275[address] Jan, Anxiety disorder, unspecified F41.[address] [id number], [place] [address]18397754 Dec, [facility] [address] [facility] [id number], [place] 155024[place] [address] Nov, Right foot sprain, initial encounter S93.601A ; Onychomycosis B35.1 and DM neuro manif type II E11.49 [facility] [address] [id number], [place] 574150377 Nov, Type 2 diabetes mellitus without complications E11.9 [facility] [address] [address] [id number], [place] 538263123 18 Nov, 2016 [facility] [address] [id number], [place] [address] Nov, Type 2 diabetes mellitus without complications E11.9 [facility] [address] [address] [id number], [place] 2593988[address] Nov, [facility] [address] [id number], [place] [id number] Nov, [facility] [address] [facility] [address] [id number], [place] [address]66[address] Nov, Type 2 diabetes mellitus without complications E11.9 ; Contusion of right foot, initial encounter S90.31XA and High risk medication use Z79.899 [facility] [address] [facility] [address] [id number], [place] 236158083 16 Oct, 2016 High risk medication use Z79.899 [facility] [address] [facility] [address] [id number], [place] [address] 15 Oct, 2016 Anxiety disorder, unspecified F41.9 [facility] [address] [facility] [address] [id number], [place] [address]687[address]703 September, Type 2 diabetes mellitus with diabetic neuropathy, without long- term current use of insulin E11.40 [facility] [address] [facility] [id number] [address] Aug, 2017 Onychomycosis B35.1 ; DM neuro manif type II E11.40 and Other hammer toe(s) (acquired), right foot M20.41 [facility] [address] [address] [id number], [place] [address] Aug, Type 2 diabetes mellitus without complications E11.9 ; Morbid obesity due to excess calories E66.01 and Encounter for immunization Z23 [facility] [address] [id number], [place] [address] Aug, [facility] [address] [id number], [place] 781477876 Aug, Anxiety associated with depression F41.8 [facility] [address] [id number], [place] 269342883 Jul, Anxiety disorder, unspecified F41.9 [facility] [address] [id number], [place] [address] Jun, Anxiety associated with depression F41.8 [facility] [address] [id number], [place] [address] Jun, Lobar pneumonia J18.1 [facility] [address] [id number], [place] [address] Jun, Pneumonia of left lower lobe due to infectious organism J18.1 [facility] [address] [id number], [place] 1599[address] Jun, [facility] [address] [place] [address] AVE [id number], [place] 794632555 Jun, [facility]ITAL[facility] [address] [facility] [id number][place] [address]7639132[address] May, Onychomycosis B35.1 ; Other hammer toe(s) (acquired), right foot M20.41 ; Other hammer toe(s) (acquired), left foot M20.42 and DM neuro manif type II E11.40 [facility] [address] [id number], [place] 2841681[address] May, [facility]ALSE[facility] [address] [id number], [place] [address]49475[address] May, [facility] [address] [id number], [place] 721227[address] May, [facility] [address] [id number], [place] [address]476[address] May, [facility] [facility] [address] [id number], [place] 641168641 May, Gynecologic exam normal Z01.419 ; Breast cancer screening Z12.39 and Creatinine elevation R79.[address] [facility] [address] [id number], [place] 316[address]265 Apr, [facility] [address] [id number], [place] 270454549 Apr, Creatinine elevation R79.[address] [id number], [place] 567961099 Apr, DM neuro manif type II E11.40 and Osteopenia M85.80 [facility] [id number] [place] [address]12- 1952 Feb, Onychomycosis B35.1 and DM neuro manif type II E11.[address] [id number], [place] 27539[address] Feb, [facility] [address] [id number], [place] [address]67[address] Jan, Mild persistent asthma without complication J45.30 ; Anxiety disorder, unspecified F41.9 and Essential hypertension I10 [facility] [id number] [place] [address] 35471- 8900 Jan, Anxiety disorder, unspecified F41.9 and Depressive disorder , not elsewhere classified F32.9 [facility] [id number] [place] [address] 08386- 3713 Dec, Anxiety disorder, unspecified F41.9 and Depressive disorder , not elsewhere classified F32.9 [facility] [address] [address] Dec, Left elbow pain M25.522 [facility] [id number] [place] [address] 11943- 6697 Dec, Anxiety disorder, unspecified F41.9 and Depressive disorder , not elsewhere classified F32.9 [place] [address] [place] [address] 22919- 4355 Nov, Anxiety disorder, unspecified F41.9 and Depressive disorder , not elsewhere classified F32.9 [place] [address] [address]- [address] Nov, Anxiety disorder, unspecified F41.9 and Depressive disorder , not elsewhere classified F32.[address] [id number], [place] 777043661 Oct, Diabetes mellitus, controlled E11.9 ; Hyperlipidemia, unspecified hyperlipidemia type E78.5 ; Essential hypertension I10 and Mild persistent asthma without complication J45.30 [place] [id number] [place] [address] 19807- 7310 Oct, Anxiety disorder, unspecified F41.9 and Depressive disorder , not elsewhere classified F32.9 [place] [id number] [place] [address] 70519- 4333 September, Anxiety disorder, unspecified F41.9 and Depressive disorder , not elsewhere classified F32.9 [place] [id number] [place] [address] 09682- 3021 Aug, Onychomycosis B35.1 and DM neuro manif type II E11.[address] [id number], [place] 598292490 Aug, [place] [address] [place] [address] 72782- 8458 Aug, Anxiety disorder, unspecified F41.9 and Depressive disorder , not elsewhere classified F32.[address] [id number], [place] 825186917 Jul, Type 2 diabetes mellitus without complications E11.9 ; Encounter for Zostavax administration Z23 ; Morbid obesity due to excess calories E66.01 and Other infective otitis externa of left ear H60.[address] [id number], [place] [address]75[address] Jul, [facility] [address] [id number] [address] Jul, [facility] [address] [id number]- 0379 Jul, [facility] [address] [id number], [place] 182982295 Jun, [facility] [address] [id number] [address]3661880- [address]99 Jun, Anxiety disorder, unspecified F41.9 and Depressive disorder , not elsewhere classified F32.9 [facility] [address] [id number], [place] 558494334 Jun, Abscess, ear canal H60.00 [facility] [address] [address] [id number], [place] 181301382 Jun, Abscess, ear canal H60.00 [facility] [address] [id number], [place] [id number] Jun, [facility] [address] [id number] 36933256- [address]178 May, Anxiety disorder, unspecified F41.9 and Depressive disorder , not elsewhere classified F32.9 [facility] [address] [id number], [place] 286696561 Apr, Diabetes mellitus, controlled E11.9 and Breast cancer screening Z12.39 [facility] [address] [id number], [place] 908340095 Apr, Diabetes mellitus, controlled E11.9 ; Breast cancer screening Z12.39 and Morbid obesity due to excess calories E66.01 [facility] [address] [facility] [id number], [place] 71527147- 9992 Apr, Anxiety disorder, unspecified F41.9 and Depressive disorder , not elsewhere classified F32.9 [facility] [address] [id number], [place] [id number] Mar, [place] [address] [place] [address] 44893- 5564 Mar, Encounter for immunization Z23 [place] [address] [place] [address] 48080- 5800 Mar, Anxiety disorder, unspecified F41.9 and Depressive disorder , not elsewhere classified F32.9 [place] [id number] [place] [address] 94657- 5656 Feb, Foot ulcer, right L97.519 and DM neuro manif type II E11.40 [address] [id number] [place] [address] 06847- 3006 Jan, Anxiety disorder, unspecified 300.00 and Depressive disorder , not elsewhere classified [address] [place] [address] [id number] Jan, [address] [place] [address] 37930- 0589 Jan, Cellulitis of right foot 682.7 ; Onychomycosis 110.1 ; Neuropathy 355.9 and Foot ulcer 707.[address] [place] [address] 73628- 8475 10 Jan, 2015 Anxiety disorder, unspecified 300.00 and Depressive disorder , not elsewhere classified [address] [facility] [address] [id number], [place] [id number] 08 Jan, 2015 Anxiety disorder, unspecified 300.00 ; Shortness of breath 786.05 and Coronary atherosclerosis of unspecified type of vessel, mi'kmaq or graft 414.[address] [place] [address] 15593- 7379 Dec, Anxiety disorder, unspecified 300.00 and Depressive disorder , not elsewhere classified [address] [address] [place] [address] 12960- 7015 Dec, Anxiety disorder, unspecified 300.00 and Depressive disorder , not elsewhere classified [address] [id number], [place] 703068371 Nov, [facility] [address] [address]- 6846 Nov, Anxiety disorder, unspecified 300.00 and Depressive disorder , not elsewhere classified [address] [id number], [place] 38[address]65737 Nov, Shortness of breath 786.05 and Morbid obesity 278.01 [place] [address] [facility] [id number][place] [address]- 0789 Nov, Anxiety disorder, unspecified 300.00 and Depressive disorder , not elsewhere classified [address] [id number], [place] 008128638 Oct, Asthma, moderate persistent 493.90 [place] [address] [address]- 6023 Oct, Anxiety disorder, unspecified 300.00 and Depressive disorder , not elsewhere classified [address] [place] [address] [facility] [id number], [place] [address]- 7591 September, Hammertoe 735.4 ; Onychomycosis 110.1 and Type I diabetes mellitus with neurological manifestations 250.[address] [id number], [place] 328263018 September, [place] [address] [facility] [id number][place] [address]- 5539 September, Anxiety disorder, unspecified 300.00 and Depressive disorder , not elsewhere classified [address] [id number], [place] 743767721 September, Diabetes type 2, controlled 250.00 ; Asthma, mild persistent 493.90 and Dermatitis, contact 692.9 [address] [id number], [place] 193188195 September, [place] [address] [facility] [id number], [place] [address]- 4703 September, Anxiety state, unspecified 300.00 and Depressive disorder, not elsewhere classified 311 [facility] [address] [id number] [address]- 9632 14 Aug, 2014 [facility] [address] [facility] [id number], [place] [address]- 7365 Aug, [facility] [address] [address]- 0294 Jul, [facility] [address] [facility] [id number] [place] [address]- 9157 Jul, [facility] [address] [address]- 5427 Jul, [facility] [address] [address]- 6240 Jul, [facility] [address], [place] [address]- 5861 Jul, [facility] [address] [id number] [address]- 8961 Jul, [facility] [address] [address]- 0513 Jul, [facility] [address] [address]- 5635 Jul, [facility] [address] [id number] [address]- 0403 Jun, [facility] [address] [id number]- 9880 Jun, [facility] [address] [address]- 5183 Jun, [facility] [address] [id number] [address]- 1996 Jun, [facility] [address] [address]- 3616 Jun, 2014 [facility] [place] [facility] [address] [id number] [place] [address] 2546 17 Jun, 2014 [facility] [place] [facility] [address] [id number] [place] [address] 2546 16 Jun, 2014 [facility] [place] [facility] [address] [id number] [place] [address]- 2216 16 Jun, 2014 [facility] [place] [facility] [address] [id number] [place] [address]- 2546 Jun, 2014 [facility] [place] [facility] [address] [id number] [place] [address]- 0676 Jun, 2014 [facility] [place] [facility] [address] [id number] [place] [address]- 2546 10 Jun, 2014 [facility] [place] [facility] [address] [facility] [id number] [place] [address]- 2406 Jun, 2014 [facility] [place] [facility] [address] [id number] [place] [address]- 6175 Jun, [facility] [place] [facility] [address] [facility] [id number] [place] [address]- 3210 Jun, [facility] [place] [facility] [address] [facility] [id number] [place] [address]- 3649 May, [facility] [place] [facility] [address] [id number] [place] [address] 254 May, [facility] [place] [facility] [address] [id number] [place] [address]- 2549 May, [facility] [place] [facility] [address] [id number] [place]- 8791 May, [facility] [place] [facility] [address] [id number] [place] [address]- 2546 May, [facility] [place] [facility] [address] [facility] [id number] [place] [address]- 8055 May, [facility] [place] [facility] [address] [id number] [place] [address]- 5974 May, [facility] [place] [facility] [address] [id number] [place] [address]- 3699 May, [facility] [place] [facility] [address] [id number] [place] [address]- 5041 Apr, [facility] [place] [facility] [address] [id number] [place] [address]- 6473 Apr, [facility] [place] [facility] [address] [id number] [place] [address]- 9950 Apr, [facility] [place] [facility] [address] [id number] [place] [address]- 6934 Apr, [facility] [place] [facility] [address] [id number] [place] [address]- 3852 Apr, [facility] [place] [facility] [address] [id number] [place] [address]- 2064 Apr, [facility] [place] [facility] [address] [id number] [place] [address]- 3875 Apr, [facility] [place] [facility] [address] [id number] [place] [address]- 3697 Apr, [facility] [place] [facility] [address] [id number] [place] [address]- 7980 Apr, [facility] [place] [facility] [address] [id number] [place] [address]- 0238 Apr, [facility] [place] [facility] [address] [id number] [place] [address]- 0020 Apr, [facility] [place] [facility] [address] [id number] [place] [address]- 8342 Apr, [facility] [place] [facility] [address] [id number] [place] [address]- 3091 Mar, [facility] [place] [facility] [address] [id number][place] [address]- 4033 Mar, [facility] [place] [facility] [address] [id number] [place] [address]- 0581 Mar, [facility] [place] [facility] [address] [id number] [place] [address]- 9081 Mar, [facility] [place] [facility] [address] [id number] [place] [address]- 4499 Mar, [facility] [place] [facility] [address] [id number] [place] [address]- 5529 Mar, [facility] [place] [facility] [address] [id number] [place] [address]- 5145 Mar, [facility] [place] [facility] [address] [id number] [place] [address]- 8169 Mar, [facility] [place] [facility] [address] [id number] [place] [address]- 2861 Feb, [facility] [place] [facility] [address] [id number] [place] [address]- 8156 Feb, [facility] [place] [facility] [address] [id number] [place] [address] Feb, [facility] [place] [facility] [address] [id number] [place] [address] Feb, [facility] [place] [facility] [address] [id number] [place] [address] Feb, [facility] [place] [facility] [address] [id number] [address] Feb, [facility] [place] [facility] [address] [id number] [place] [address] Feb, [facility] [place] [facility] [address] [id number] [place] [address] Feb, [facility] [place] [facility] [address] [id number], [place] [address] Jan, [facility] [place] [facility] [address] [id number] [place] [address] 19 Sep, 2013 [facility] [place] [facility] [address] [id number] [place] [id number] 17 Jan, 2013 [facility] [place] [facility] [address] [id number] [place] [address] 17 Jan, 2013 [facility] [place] [facility] [address] [id number] [place] [address] 16 Jan, 2013 [facility] [place] [facility] [address] [id number] [place] [address] 16 Jan, 2013 [facility] [place] [facility] [address] [id number] [place] [address] 15 Jan, 2013 [facility] [place] [facility] [address] [id number] [place] [address] 15 Jan, 2013 [facility] [place] [facility] [address] [id number] [place] [address] 15 Jan, 2013 [facility] [place] [facility] [address] [id number] [place] [address] 15 Jan, 2013 [facility] [place] [facility] [address] [id number] [place] [address] 09 Jan, 2013 [facility] [place] [facility] [address] [id number] [place] [address] 09 Jan, 2013 [facility] [place] [facility] [address] [id number] [place] [address] Dec, [facility] [place] [facility] [address] [id number] [place] [address] Dec, [facility] [place] [facility] [address] [id number] [place] [address] Dec, [facility] [facility] [address] [id number] [place] [address] Dec, [facility] [place] [facility] [address] [id number] [place] [address] 8566 Nov, [facility] [place] [facility] [address] [id number] [place] [address] 46[address] Nov, [facility] [place] [facility] [address] [id number] [place] [address]- 7077 Nov, [facility] [place] [facility] [address] [id number] [place] [address]- 3712 Nov, [facility] [place] [facility] [address] [id number] [place] [address] 5957 Oct, [facility] [place] [facility] [address] [id number] [place] [address]- [address]121 30 Oct, 2013 [facility] [place] [facility] [address] [id number] [place] [address]- 2860 Oct, [facility] [place] [facility] [address] [id number] [place] [address]- 1496 Oct, [facility] [place] [facility] [address] [id number] [place] [address]- 3609 16 Oct, 2013 [facility] [place] [facility] [address] [id number] [place] [address]- 0324 Oct, [facility] [place] [facility] [address] [id number] [place] [address]- 0627 Oct, [facility] [place] [facility] [address] [id number] [place] [address]- 0920 Oct, [facility] [place] [facility] [address] [id number] [address] Oct, [facility] [place] [facility] [address] [id number] [place] [address]- 6919 Oct, [facility] [place] [facility] [address] [id number] [place] [address]- 9649 September, [facility] [place] [facility] [address] [id number] [place] [address]- 4414 September, [facility] [place] [facility] [address] [id number] [place] [address]- 3421 September, [facility] [place] [facility] [address] [id number] [place] [address] September, [facility] [place] [facility] [address] [id number] [place] [address]- 5519 September, [facility] [place] [facility] [address] [id number] [place] [address]- 8199 September, [facility] [place] [facility] [address] [id number] [place] [address]- 5619 September, [facility] [place] [facility] [address] [id number] [place] [address]- 5780 September, [facility] [address] [id number] [place] [address]- 9057 Aug, [facility] [facility] [address] [id number] [place] [address]- 3373 Aug, [facility] [address] [id number] [place] [address]- 4117 Aug, [facility] [facility] [address] [id number] [place] [address]- 9776 Aug, [facility] [address] [id number] [place] [address]- 7061 Aug, [facility] [address] [id number] [place] [address]- 2349 Aug, [facility] [address] [id number] [place] [address]- 2635 Aug, [facility] [place] [facility] [address] [id number] [place] [address] Aug, [facility] [place] [facility] [address] [id number] [place] [address]- 4536 Aug, [facility] [place] [address] [id number] [place] [address]- 7954 Jul, [facility] [place] [address] [id number] [place] [address]- 0385 Jul, [facility] [address] [id number] [place] [address]- 5197 Jul, [facility] [address] [id number] [place] [address]- 6095 Jul, [facility] [place] [address] [id number] [place] [address]- 8452 Jul, [facility] [address] [id number] [place] [address]- 8820 Jul, [facility] [address] [id number] [place] [address]- 9994 Jul, [facility] [address] [id number] [place] [address]- 2100 Jul, [facility] [address] [id number] [place] [address]- 4566 Jul, [facility] [address] [id number] [place] [address]- 3916 Jul, [facility] [address] [id number] [place] [address]- 0635 Jul, [facility] [address] [id number] [place] [address]- 4769 Jul, [facility] [address] [id number] [place] [address]- 0769 Jul, [facility] [address] [id number] [place] [address]- 7815 Jul, [facility] [address] [id number] [place] [address]- 9664 Jul, [facility] [address] [id number] [place] [address]- 6716 Jul, [facility] [address] [id number] [place] [address]- 3918 Jul, [facility] [address] [id number] [place] [address]- 3865 Jul, [facility] [address] [id number] [place] [address]- 2132 Jul, [facility] [address] [facility] [id number] [place] [address]- 1646 Jul, [facility] [address] [id number] [place] [address]- 0804 Jun, [facility] [address] [id number] [place] [address]- 9208 Jun, [facility] [address] [facility] [id number] [place] [address]- 5717 Jun, [facility] [address] [facility] [id number] [place] [address]- 6211 Jun, [facility] [address] [facility] [id number] [place] [address]- 0875 Jun, [facility] [address] [facility] [id number] [place] [address]- 3464 Jun, [facility] [address] [facility] [id number] [place] [address]- 9364 Jun, [facility] [address] [facility] [id number] [place] [address]- 2196 14 Jun, 2013 [facility] [address] [facility] [id number] [place] [address]- 3623 Jun, [facility] [address] [id number] [place] [address]- 7560 Jun, [facility] [address] [facility] [id number] [place] [address]- 5519 Jun, [facility] [address] [facility] [id number] [place] [address]- 0119 Jun, [facility] [address] [id number] [place] [address]- 8868 May, [facility] [address] [id number] [place] [address]- 3569 May, [facility] [address] [id number] [place] [address]- 8294 May, [facility] [address] [id number] [place] [address]- 7140 May, [facility] [address] [id number] [place] [address]- 2010 May, [facility] [address] [id number] [place] [address]- 6577 May, [facility] [address] [id number] [place] [address]- 7791 May, [facility] [address] [id number] [place] [address]- 0114 May, [facility] [address] [id number] [place] [address]- 0893 May, [facility] [address] [id number] [place] [address]- 3345 May, [facility] [address] [id number] [place] [address]- 4107 May, [facility] [address] [id number] [place] [address]- 1335 May, [facility] [address] [id number] [place] [address]- 8319 May, [facility] [address] [id number] [place] [address]- 8151 May, [facility] [address] [id number] [place] [address]- 3948 Apr, [facility] [address] [id number] [place] [address]- 4161 27 Apr, 2013 [facility] [address] [id number] [place] [address]- 4866 17 Apr, 2013 [facility] [address] [id number] [place] 17 Apr, 2013 [facility] [address] [id number] [place] 16 Apr, 2013 [facility] [address] [id number] [place] [address]- 8418 16 Apr, 2013 [facility] [address] [id number] [place] [address]- 5385 12 Apr, 2013 [facility] [address] [id number] [place] [address]- 7633 12 Apr, 2013 [facility] [address] [id number] [place] [address]- 7065 Apr, [facility] [address] [id number] [place] [address]- 8890 Apr, [facility] [address] [id number] [place] [address]- 3056 06 Apr, 2013 [facility] [address] [id number] [place] [address]- 5966 06 Apr, 2013 [facility] [address] [id number] [place] [address]- 7990 Mar, [facility] [address] [id number], [place] [address]- 9149 Mar, [facility] [address] [id number] [place] [address]- 6274 Mar, [facility] [address] [id number] [place] [address]- 9403 Mar, [facility] [address] [id number] 6526 Mar, [facility] [address] [id number] [place] [address]- 2393 Mar, [facility] [address] [id number] [place] [address]- 9793 Mar, [facility] [address] [id number] [place] [address]- 4786 Mar, [facility] [address] [id number] [place] [address]- 3963 Mar, [facility] [address] [id number] [place] [address]- 4310 Mar, [facility] [address] [id number] [place] [address]- 1539 Mar, [facility] [address] [id number] [place] [address]- 4590 Mar, [facility] [address] [id number] [place] [address]- 6101 Feb, [facility] [address] [id number] [place] [address]- 8399 Feb, [facility] [address] [id number] [id number] Feb, [facility] [address] [id number], [place] [address]- 5112 Feb, [facility] [address] [id number], [place] [address]- 5763 Feb, [facility] [address] [id number], [place] [address]- 3506 Feb, [facility] [address] [id number] [place] [address]- 2815 Feb, [facility] [address] [id number] [place] [address]- 8706 Feb, [facility] [address] [id number], [place] [address]- 1559 Feb, [facility] [address] [id number], [place] [address]- 9036 Feb, [facility] [address] [facility] [id number], [place] [address]- 2703 Feb, [facility] [address] [facility] [id number], [place] [address]- 4681 Feb, [facility] [address] [facility] [id number], [place] [address]- 3416 Feb, [facility] [address] [id number], [place] [address]- 0791 Jan, [facility] [address] [id number] [place] [id number] Jan, [facility] [address] [id number] [place] [id number] 16 Jan, 2013 [facility] [address] [id number] [place] [id number] Jan, [facility] [address] [id number] [place] [address] Jan, [facility] [address] [facility] [id number], [place] [address]- 4127 Jan, [facility] [address] [id number] [place] [id number] Jan, [facility] [address] [facility] [id number], [place] [address]- 4234 Dec, [facility] [address] [facility] [id number], [place] [address]- 3138 Dec, [facility] [address] [id number][place] [address]- 4462 Dec, [facility] [address] [id number] [id number] Dec, [facility] [address] [id number] [place] [id number] Dec, [facility] [address] [id number] [id number] Dec, [facility] [address] [id number] [place] [address]- 0403 Dec, [facility] [address] [facility] [id number] [place] [address]- 1745 Dec, [facility] [address] [id number] [place] [id number] Dec, [facility] [address] [facility] [id number] [place] [address]- 6524 Dec, [facility] [address] [facility] [id number] [place] [address]- 3451 Nov, [facility] [address] [facility] [id number] [place] [address]- 2077 Nov, [facility] [address] [facility] [id number] [place] [address]- 2272 Nov, [facility] [address] [id number] [place] [id number] Nov, [facility] [address] [id number] [place] [id number] Oct, [facility] [address] [id number] [place] [id number] Oct, [facility] [address] [facility] [id number], [place] [address]- 5088 Oct, [facility] [address] [facility] [id number], [place] [address]- 7727 Oct, [facility] [address] [facility] [id number], [place] [address]- 9121 Oct, [facility] [address] [id number] [place] [id number] Oct, [facility] [address] [facility] [id number] [place] [address]- 3487 Oct, [facility] [address] [id number] [place] [id number] Oct, [facility] [address] [id number] [place] [id number] September, [facility] [address] [id number] [place] [address]- 7376 September, [facility] [address] [id number] [place] [id number] September, [facility] [address] [facility] [id number] [place] [address]- 3266 September, [facility] [address] [facility] [id number], [place] [address]- 7986 September, [facility] [address] [facility] [id number] [place] [address]- 8383 September, [facility] [address] [facility] [id number] [place] [id number] September, [facility] [address] [id number], [place] [address]- 1216 September, [facility] [address] [facility] [id number], [place] [address]- 5586 September, [facility] [address] [facility] [id number], [place] [address]- 5670 Aug, [facility] [address] [facility] [id number] [place] [id number] Aug, [facility] [address] [facility] [id number] [place] [id number] Aug, [facility] [address] [facility] [id number], [place] [address]- 9476 18 Aug, 2012 [facility] [address] [id number], [place] [address]- 7596 17 Aug, 2012 [facility] [address] [id number] [place] [id number] 15 Aug, 2012 [facility] [address] [id number] [place] [id number] Aug, [facility] [address] [facility] [id number], [place] [address]- 8376 Aug, [facility] [address] [id number] [place] [address]- 2546 Aug, [facility] [address] [id number] [place] [address]- 0216 Jul, [facility] [address] [id number] [place] [id number] Jul, [facility] [address] [facility] [id number] [place] [address]- 8156 Jul, [facility] [address] [id number] [place] [address] 2546 Jul, [facility] [address] [id number] [place] [address]- 2936 Jul, [facility] [address] [facility] [id number] [place] [address]- 1956 Jul, [facility] [address] [id number] [address]- 8476 Jul, [facility] [address] [id number], [place] [address]- 3106 Jul, [facility] [address] [id number] [place] [id number] Jul, [facility] [address] [id number] [place] [id number] Jun, [facility] [address] [facility] [id number], [place] [address]- 2546 Jun, [facility] [address] [id number] [place] [address] Jun, [facility] [address] [facility] [id number] [place] [address]- 2546 Jun, [facility] [place] [facility] [address] [facility] [id number] [place] [address] 2546 May, [facility] [address] [facility] [id number] [place] [address]- 2546 May, [facility] [address] [id number] [id number] May, [facility] [address] [id number] [place] [id number] May, [facility] [place] [facility] [address] [facility] [id number] [place] [address]- 0446 May, [facility] [address] [id number] [place] [id number] May, [facility] [place] [facility] [address] [id number], [place] [address]- 4316 May, [facility] [place] [facility] [address] [id number] [place] [address]- 5896 May, [facility] [address] [facility] [id number] [place] [id number] Apr, [facility] [address] [facility] [id number] [place] [id number] Apr, [facility] [place] [facility] [address] [facility] [id number], [place] [address]- 7905 Apr, [facility] [place] [facility] [address] [facility] [id number] 7785 Apr, [facility] [place] [facility] [address] [facility] [id number]- 7972 Apr, [facility] [place] [facility] [address] [facility] [id number], [place] [address]- 5467 Apr, [facility] [address] [facility] [id number] [place] [id number] Apr, [facility] [place] [facility] [address] [id number], [place] [address]- 1736 Apr, [facility] [place] [facility] [address] [facility] [id number] [place] [address]- 4765 Apr, [facility] [place] [facility] [address] [facility] [id number], [place] [address]- [address] Apr, [facility] [address] [facility] [id number] [place] [id number] Apr, [facility] [address] [id number] [place] [address] Apr, [facility] [place] [facility] [address] [id number] [place] [address] Apr, [facility] [address] [id number] [place] [address] Apr, [facility] [place] [facility] [address] [id number] [place] [address] Mar, [facility] [address] [id number] [place] [address] Mar, [facility] [place] [facility] [address] [facility] [id number] [place] [address] Mar, [facility] [address] [facility] [id number] [place] [address] Mar, [facility] [address] [facility] [id number] [place] [id number] Mar, [facility] [address] [facility] [id number], [place] [address] Mar, [facility] [address] [facility] [id number] [place] [id number] Mar, [facility] [address] [facility] [id number], [place] [address] Mar, [facility] [address] [facility] [id number] [place]INT[place] [id number] Feb, [facility] [place] [facility] [address] [id number], [place] [address] Feb, [facility] [place] [facility] [address] [id number], [place] [address] Feb, [facility] [place] [facility] [address] [facility] [id number], [place] [address] Feb, [facility] [place] [facility] [address] [id number], [place] [address] Jan, [facility] [address] [id number] [place] [id number] Jan, [facility] [place] [facility] [address] [id number] [place] [address] Jan, [facility] [place] [facility] [address] [id number] [place] [address] 3926 Jan, [facility] [place] [facility] [address] [id number] [place] [address] 05 Jan, 2012 [facility] [address] [id number] [place] [id number] Jan, [facility] [place] [facility] [address] [id number] [place] [address] Dec, [facility] [address] [facility] [id number] [place] [id number] Dec, [facility] [place] [facility] [address] [id number] [place] [address] Dec, [facility] [place] [facility] [address] [id number] [place] [address]607 Dec, [facility] [place] [facility] [address] [facility] [id number] [place] [address] Nov, [facility] [place] [facility] [address] [facility] [id number] [place] [address] Nov, [facility] [place] [facility] [address] [id number] [place] [address] Nov, [facility] [address] [facility] [id number] [place] [id number] Nov, [facility] [place] [facility] [address] [id number] [place] [address] Nov, [facility] [address] [facility] [id number] [place] [id number] Nov, [facility] [place] [facility] [address] [id number] [place] [address] Nov, [facility] [place] [facility] [address] [facility] [id number], [place] [address] Nov, [facility] [place] [facility] [address] [id number], [place] [address] Nov, [facility] [place] [facility] [address] [facility] [id number], [place] [address] Oct, [facility] [place] [facility] [address] [id number], [place] [address] Oct, [facility] [address] [id number] [place] [id number] Oct, [facility] [address] [facility] [id number] [place] [id number] Oct, [facility] [address] [facility] [id number] [place] [id number] Oct, [facility] [place] [facility] [address] [id number], [place] [address] Oct, [facility] [place] [facility] [address] [facility] [id number], [place] [address] Oct, [facility] [place] [facility] [address] [facility] [id number] [place] [address]6 Oct, [facility] [place] [facility] [address] [facility] [id number], [place] [address] September, [facility] [place] [facility] [address] [facility] [id number], [place] [address] September, [facility] [place] [facility] [address] [facility] [id number], [place] [address] September, [facility] [place] [facility] [address] [facility] [id number] [place] [address] 2541 Aug, [facility] [place] [facility] [address] [facility] [id number] [place] [address]- [address]335 Aug, [facility] [place] [facility] [address] [facility] [id number] [place] [address] Aug, [facility] [place] [facility] [address] [id number] [place] [address]- [address]86 Aug, [facility] [address] [id number] [place] [address] 9766 Aug, [facility] [address] [facility] [id number] [place] [id number] Jul, [facility] [address] [id number] [place] [address] Jul, [facility] [address] [id number] [place] [address]696 Jun, [facility] [address] [id number] [place] [address]- 3508 Jun, [facility] [address] [id number] [place] [address]- [address] Jun, [facility] [address] [id number] [place] [address] Jun, [facility] [address] [id number] [place] [address]25 Jun, [facility] [address] [id number] [place] [address]- [address] May, [facility] [address] [id number] [place] [address]- [address]286 May, [facility] [address] [id number] [place] [address] May, [facility] [address] [id number], [place] [address] May, [facility] [address] [id number] [place] [address]- [address] 16 May, 2011 [facility] [address] [id number] [place] [address]- [address] 10 May, 2011 [facility] [address] [id number] [address] May, [facility] [place] [facility] [address] [id number] [place] [address] 05 May, 2011 [facility] [place] [facility] [address] [id number] [place] [address] 27 Apr, 2011 [facility] [place] [facility] [address] [id number] [place] [address] 20 Apr, 2011 [facility] [place] [facility] [address] [id number] [place] [address] 16 Apr, 2011 [facility] [place] [facility] [address] [id number] [place] [address] 15 Apr, 2011 [facility] [place] [facility] [address] [id number] [place] [address] 13 Apr, 2011 [facility] [place] [facility] [address] [id number] [place] [address] 05 Apr, 2011 [facility] [place] [facility] [address] [id number] [place] [address] 22 Mar, 2011 [facility] [place] [facility] [address] [id number] [place] [address] Mar, [facility] [place] [facility] [address] [id number] [place] [address] 15 Mar, 2011 [facility] [place] [facility] [address] [id number] [place] [address] 14 Mar, 2011 [facility] [place] [facility] [address] [id number] [place] [address] 5826 14 Mar, 2011 [facility] [place] [facility] [address] [id number] [place] [address] 07 Mar, 2011 [facility] [place] [facility] [address] [id number] [place] [address] 98[address] 04 Mar, 2011 [facility] [place] [facility] [address] [id number] [place] [address] 01 Mar, 2011 [facility] [place] [facility] [address] [id number] [place] [address] 9768 14 Feb, 2011 [facility] [place] [facility] [address] [id number] [place] [address] 16 Jun, 2010 [facility] [place] [facility] [address] [id number] [place] [address] 5936 19 May, 2010 [facility] [place] [facility] [address] [facility] [id number] [place] [address] 13 May, 2010 [facility] [place] [facility] [address] [id number] [place] [address] 13 Apr, 2010 [facility] [place] [facility] [address] [id number] [place] [address] Apr, [facility] [place] [facility] [address] [id number] [place] [address] Apr, [facility] [place] [facility] [address] [id number] [place] [address] 33[address] 24 Mar, 2010 [facility] [place] [facility] [address] [id number], [place] [address] 15 Mar, 2010 [facility] [place] [facility] [address] [id number], [place] [address] Mar, [facility] [place] [facility] [address] [id number], [place] [address] Mar, [facility] [place] [facility] [address] [id number], [place] [address] Mar, [facility] [place] [facility] [address] [id number], [place] [address] Feb, [facility] [place] [facility] [address] [id number], [place] [address] Feb, [facility] [place] [facility] [address] [id number], [place] [address] Oct, [facility] [place] [facility] [address] [id number], [place] [address] September, [facility] [place] [facility] [id number] [address] Apr, [facility] [id number] [address] Apr, [facility] [id number] [address] Mar, [facility] [id number] [address] Mar, [facility] [id number] [address] Mar, [facility] [id number] [place] [address] Mar, [facility] [address] [address] Mar, [facility] [id number] [place] [address] Feb, [facility] [id number] Feb, [facility] [address] [address] Jan, [facility] [address] [address] Oct, IMMUNIZATIONS No Known Immunizations SOCIAL HISTORY Never Assessed REASON FOR VISIT med refill PLAN OF CARE VITAL SIGNS MEDICATIONS Medication Instructions Dosage Frequency Start Date End Date Duration Status Crestor 40 mg Orally Once a day 1 tablet 24h 0 days Active RESULTS No Results PROCEDURES No [...]
--- OUTSIDE RECORDS SUMMARY | 2017-11-22 09:49 | XMS REPORT ---
Author Author BRANDO ANGULO [facility] Address [address] [place] [address] Care Team Providers Care Motor And Controls Tester Name Role Phone BRANDO ANGULO Unavailable PROBLEMS Type Condition ICD9-CM Code PVH50-QO Code Onset Dates Condition Status SNOMED Code Problem Osteopenia M85.80 Active 504417021 Problem Gynecologic exam normal Z01.419 Active 983394276 Problem Breast cancer screening Z12.39 Active 578076168 Problem Contusion of right foot, initial encounter S90.31XA Active 33312518 Problem Abscess, ear canal H60.00 Active 10969485 Problem High risk medication use Z79.899 Active 998139745136904 Problem Diabetes mellitus, controlled E11.9 Active 577212925 Problem Depressive disorder, not elsewhere classified F32.9 Active 86848184 Problem Lobar pneumonia J18.1 Active 688647931 Problem Creatinine elevation R79.89 Active 289993972 Problem Type 2 diabetes mellitus with diabetic neuropathy, without long-term current use of insulin E11.40 Active 61265997 Problem Anxiety associated with depression F41.8 Active 032177314 Problem Encounter for Zostavax administration Z23 Active 006877425 Problem Other infective otitis externa of left ear H60.392 Active 59507735 Problem Type 2 diabetes mellitus without complications E11.9 Active 236109954 Problem Morbid obesity due to excess calories E66.01 Active 199727740 Problem Mild persistent asthma without complication J45.30 Active 457893704 Problem Essential hypertension I10 Active 11650313 Problem DM neuro manif type II E11.40 Active 15637280 Problem DM neuro manif type II E11.49 Active 06114194 Problem Other hammer toe(s) (acquired), left foot M20.42 Active 37191307 Problem Anxiety disorder, unspecified F41.9 Active 701229173 Problem Hyperlipidemia, unspecified hyperlipidemia type E78.5 Active 09630279 Problem Other hammer toe(s) (acquired), right foot M20.41 Active 103775794 ALLERGIES Substance Reaction Event Type Date Status Ultram Unknown Drug Allergy September, Active Theophylline Unknown Drug Allergy September, Active Tegretol Unknown Drug Allergy September, Active Talacen Unknown Drug Allergy September, Active Imitrex Unknown Drug Allergy September, Active Erythromycin Unknown Drug Allergy September, Active Emcyt Unknown Drug Allergy September, Active Dilantin Unknown Drug Allergy September, Active Darvon Unknown Drug Allergy September, Active Byetta 10 MCG Pen Unknown Drug Allergy September, Active SOCIAL HISTORY Never Assessed PLAN OF CARE Activity Details Follow Up Regular intervals with Christy for DM control Reason: VITAL SIGNS Height 65 in 2016-10-05 Weight 247.6 lbs 2016-10-05 Temperature 97.9 degrees Fahrenheit 2016-10-05 Heart Rate 94 bpm 2016-10-05 Respiratory Rate 18 2016-10-05 BMI 41.20 kg/m2 2016-10-05 Blood pressure systolic 138 mmHg 2016-10-05 Blood pressure diastolic 86 mmHg 2016-10-05 MEDICATIONS Medication Instructions Dosage Frequency Start Date End Date Duration Status Gabapentin 800 MG Orally Four times a day 6h Active Sucralfate 1 TAKE 1 TABLET BY MOUTH FOUR TIMES DAILY 30 MINUTES BEFORE BEDTIME AND MEALS 30 Active Crestor 40 Orally Once a day 1 tablet 24h 90 Active Baclofen 10 MG/20ML Active Ipratropium-Albuterol 0.5-2.5 (3) Inhalation every 6 hrs 3 ml 6h Active Lyrica 100 MG Orally Twice a day 1 capsule 12h Active Ipratropium-Albuterol 0.5-2.5 (3) MG/3ML Inhalation every 6 hrs 3 ml 6h Active Ventolin HFA 108 (90 Base) MCG/ACT Inhalation 4 times a day as needed for shortness of breath/cough 2 puffs Active Varina 7.5-325 MG Orally 3 times a day 1 tablet as needed 8h Active Calcium + D 315-200 MG-UNIT Orally Twice a day 1 tablet with meals 12h Active Fish Oil 500 MG Orally Once a day 3 capsule 24h Active E-Z Spacer 12h Active Loratadine 10 TAKE 1 TABLET BY MOUTH DAILY 30 Active Flovent HFA 110 INHALE 2 PUFFS TWICE DAILY(SCHEDULED PREVENTION MEDICINE) RINSE MOUTH AFTER EACH USE 30 Active Nebulizer/Tubing/Mouthpiece 1 kit as directed Jun, Active Colace 100 MG Orally Two times per day PRN 1 capsule as needed Active Crestor 40 mg Orally Once a day 1 tablet 24h Active Metformin HCl 1000 MG Orally Twice a day 1 tablet with meals 12h 30 Active Ativan 0.5 MG Orally Two times per day, must last 30 days 1 tablet as needed for severe anxiety Active Claritin 10 MG Orally Once a day 1 tablet 24h Active Sertraline HCl 100 MG Orally Once a day 1 1/2 tablets 24h Active Nexium 40 TAKE ONE CAPSULE BY MOUTH TWICE DAILY 30 Active Alendronate Sodium 70 TAKE 1 TABLET BY MOUTH ONCE WEEKLY 4 Active Metoprolol Tartrate 25 MG Orally Twice a day TAKE TWO TABLETS BY MOUTH DAILY IN THE MORNING, AND ONE TABLET BY MOUTH DAILY IN THE EVENING. 12h Active Hydrochlorothiazide 25 TAKE 1 TABLET BY MOUTH EVERY DAY 30 Active Nebulizer 1 by inhalation route 4 times a day 3 mls 6h Active nexium 40 mg Orally 2 times per day 1 capsule Active Trulicity 0.75 MG/0.5ML Subcutaneous once weekly 0.5 ml Aug, Active Carafate 1 GM Orally Four times a day 1 tablet on an empty stomach 6h Active Metformin HCl 1000 TAKE 1 TABLET BY MOUTH TWICE DAILY WITH MEALS 90 Active Lisinopril 2.5 MG Orally Once a day 1 tablet 24h Mar, Active RESULTS No Results PROCEDURES Procedure Date Ordered Result Body Site [facility] VISIT ESTABLISHED PATIENT October 05, 2016 IMMUNIZATIONS No Known Immunizations MEDICAL (GENERAL) [...]
--- OUTSIDE RECORDS SUMMARY | 2017-11-22 09:50 | XMS REPORT ---
Author Author KELSIE JENNIFER [facility] Address [address] [place] [address] Care Team Providers Care Wardrobe Attendant Name Role Phone JENNIFER IGLESIAS Unavailable PROBLEMS Type Condition ICD9-CM Code [id number] Code Onset Dates Condition Status SNOMED Code Problem Depressive disorder, not elsewhere classified F32.9 Active 03900368 Problem DM neuro manif type II E11.40 Active 29836761 Problem Diabetes mellitus, controlled E11.9 Active 630021301 Problem Anxiety disorder, unspecified F41.9 Active 675823107 Problem Abscess, ear canal H60.00 Active 44051970 Problem Type 2 diabetes mellitus without complications E11.9 Active 126977313 Problem Encounter for Zostavax administration Z23 Active 070911392 Problem Morbid obesity due to excess calories E66.01 Active 671456514 Problem Other infective otitis externa of left ear H60.392 Active 67860356 Problem Contusion of right foot, initial encounter S90.31XA Active 93370266 Problem DM neuro manif type II E11.49 Active 93800655 Problem High risk medication use Z79.899 Active 391235850527483 Problem Hyperlipidemia, unspecified hyperlipidemia type E78.5 Active 75418476 Problem Breast cancer screening Z12.31 Active 199133900 Problem Personal history of nicotine dependence Z87.891 Active 87185835 Problem Medicare annual wellness visit, initial Z00.00 Active 138391625 Problem Strep throat J02.0 Active 03757502 Problem Other microscopic hematuria R31.29 Active 115632656 Problem Other hammer toe(s) (acquired), left foot M20.42 Active 93353939 Problem Mild persistent asthma without complication J45.30 Active 910653508 Problem Essential hypertension I10 Active 48212985 Problem Pain in right ankle and joints of right foot M25.571 Active 169956753 Problem Pain in left ankle and joints of left foot M25.572 Active 008068126 Problem BMI 40.0-44.9, adult Z68.41 Active 196667442 Problem Other chronic pain G89.29 Active 04953058 Problem Gynecologic exam normal Z01.419 Active 977408687 Problem Breast cancer screening Z12.39 Active 654208008 Problem Other hammer toe(s) (acquired), right foot M20.41 Active 389505067 Problem Osteopenia M85.80 Active 829530966 Problem Anxiety associated with depression F41.8 Active 712328319 Problem Type 2 diabetes mellitus with diabetic neuropathy, without long-term current use of insulin E11.40 Active 66356839 Problem Creatinine elevation R79.89 Active 467206268 Problem Lobar pneumonia J18.1 Active 794387704 ALLERGIES No Information ENCOUNTERS Encounter Location Date Diagnosis [facility] [id number] [address] Oct, DM neuro manif type II E11.49 [facility] [address] [id number] [place] [address] September, DM neuro manif type II E11.49 and BMI 40.0-44.9, adult Z68.41 [facility] [address] [id number] LAKE[place] [address] Aug, Anxiety disorder, unspecified F41.9 [place] [address] [place] [address]3479- 1795 Aug, [place] [id number] [place] [address]11- 3036 Aug, Onychocryptosis L60.0 and DM neuro manif type II E11.40 [facility] [address] [id number] [place] [address] Aug, 2018 Acute bronchitis due to other specified organisms J20.8 and BMI 40.0-44.9, adult Z68.41 [facility] [id number] [place] [address] 31156- 8217 Aug, [facility] [address] [id number] [place]KE[place] [address] Aug, [place] [address] [facility] [id number], [place] [address] Aug, Onychocryptosis L60.0 [facility] [address] [address] [id number] [place]KE[place] [address] Aug, [facility] [address] [id number] [place]KE[place] [address] Jul, Strep throat J02.0 ; Other microscopic hematuria R31.29 and BMI 40.0-44.9, adult Z68.41 [facility] [address] [facility] [id number] [place] [address] Jul, [facility] [address] [id number] [place] [address] Jun, [facility] [address] [place] [address] AVE [id number] [place]KE[place] [address] Jun, [facility] [address] [id number] [place] [address] Jun, Type 2 diabetes mellitus without complications E11.9 ; BMI 40.0- 44.9, adult Z68.41 ; Pain in right ankle and joints of right foot M25.571 ; Pain in left ankle and joints of left foot M25.572 and Other chronic pain G89.29 [place] [address] [facility] [id number], [place] [address] May, Onychomycosis B35.1 ; Onychocryptosis L60.0 and DM neuro manif type II E11.40 [facility] [address] [id number] [place]KE[place] [address] May, [facility] [address] [id number] [place] [address] May, [facility] [address] [id number] [place]KE[place] [address] Apr, Medicare annual wellness visit, initial Z00.00 ; Personal history of nicotine dependence Z87.891 ; Breast cancer screening Z12.31 and BMI 40.0- 44.9, adult Z68.[address] [facility] [address] [id number] [place] [address] Apr, Anxiety disorder, unspecified F41.[address] [facility] [address] [id number] [place] [address] Feb, [facility] [address] [facility] [id number][place] [address] Feb, Onychomycosis B35.1 and DM neuro manif type II E11.[address] [facility] [address] [id number] [place] [address] Feb, Type 2 diabetes mellitus without complications E11.9 and Encounter for immunization Z23 [facility] [address] [id number] LAKE[place] [address] Jan, Anxiety disorder, unspecified F41.9 [facility] [address] [address] [id number] [place]KE[place] [address] Dec, [facility] [address] [facility] [id number], [place] [address] Nov, Right foot sprain, initial encounter S93.601A ; Onychomycosis B35.1 and DM neuro manif type II E11.[address] [facility] [address] [id number] [place]KE[place] [address] Nov, Type 2 diabetes mellitus without complications E11.[address] [facility] [address] [id number] [place] [address] Nov, [facility] [address] [id number] [place] [address] Nov, Type 2 diabetes mellitus without complications E11.[address] [facility] [address] [id number] [place] [address] Nov, [facility] [address] [id number] [place]KE[place] [address] Nov, [facility] [address] [id number] [place] [address] Nov, Type 2 diabetes mellitus without complications E11.9 ; Contusion of right foot, initial encounter S90.31XA and High risk medication use Z79.899 [facility] [address] [id number] [place] [address] Oct, High risk medication use Z79.899 [facility] [address] [id number] [place]KE[place] [address] Oct, Anxiety disorder, unspecified F41.9 [facility] [address] [id number] [place]KE[place] [address] September, Type 2 diabetes mellitus with diabetic neuropathy, without long- term current use of insulin E11.40 [facility] [address] [facility] [id number] [place] [address] Aug, Onychomycosis B35.1 ; DM neuro manif type II E11.40 and Other hammer toe(s) (acquired), right foot M20.41 [facility] [address] [id number] [place]KE[place] [address] Aug, Type 2 diabetes mellitus without complications E11.9 ; Morbid obesity due to excess calories E66.01 and Encounter for immunization Z23 [facility] [address] [facility] [address] [id number] [place] [address] Aug, [facility] [address] [id number] [place]KE[place] [address] Aug, Anxiety associated with depression F41.8 [facility] [address] [id number] [place] [address] Jul, Anxiety disorder, unspecified F41.9 [facility] [address] [id number] [place] [address] Jun, Anxiety associated with depression F41.8 [facility] [address] [id number] [place] [address] Jun, Lobar pneumonia J18.1 [facility] [address] [id number] [place] [address] Jun, Pneumonia of left lower lobe due to infectious organism J18.1 [facility] [address] [id number] [place] [address] Jun, [facility] [address] [id number] [place] [address] Jun, [facility] [address] [address] May, Onychomycosis B35.1 ; Other hammer toe(s) (acquired), right foot M20.41 ; Other hammer toe(s) (acquired), left foot M20.42 and DM neuro manif type II E11.40 [facility] [address] [id number] [place]KE[place] [address] May, [facility] [address] [id number] [place]KE[place] [address] May, [facility] [address] [place] [id number] [place] [address] May, [facility] [address]SL[address] [place] [id number] [place]KE[place] [address] May, [facility] [address] [id number] [place] [address] May, Gynecologic exam normal Z01.419 ; Breast cancer screening Z12.39 and Creatinine elevation R79.89 [facility] [address] [id number] [place]KE[place] [address] Apr, [facility] [address] [id number] [place] [address] Apr, Creatinine elevation R79.89 [facility] [address] [id number] [place] [address] Apr, DM neuro manif type II E11.40 and Osteopenia M85.80 [facility] [address]65[address] [address] Feb, Onychomycosis B35.1 and DM neuro manif type II E11.[address] [id number] [place]KE[place] [address] Feb, [address] [id number] [place]KE[place] [address] Jan, Mild persistent asthma without complication J45.30 ; Anxiety disorder, unspecified F41.9 and Essential hypertension I10 [place] [address] [place] [address] 07401- 3055 Jan, Anxiety disorder, unspecified F41.9 and Depressive disorder , not elsewhere classified F32.9 [place] [address] [place] [id number] [place] [address] 64889- 5184 Dec, Anxiety disorder, unspecified F41.9 and Depressive disorder , not elsewhere classified F32.9 [facility] [id number] [place] [address] 82743 -9625 Dec, Left elbow pain M25.522 [facility] [address] [place] [id number] [place] [address] 01656- 2692 Dec, Anxiety disorder, unspecified F41.9 and Depressive disorder , not elsewhere classified F32.9 [place] [address] [place] [address] 56142- 2965 Nov, Anxiety disorder, unspecified F41.9 and Depressive disorder , not elsewhere classified F32.9 [place] [address] [place] [address] 80699- 5589 Nov, Anxiety disorder, unspecified F41.9 and Depressive disorder , not elsewhere classified F32.[address] [id number] LAKE[place] [address] Oct, Diabetes mellitus, controlled E11.9 ; Hyperlipidemia, unspecified hyperlipidemia type E78.5 ; Essential hypertension I10 and Mild persistent asthma without complication J45.30 [place] [address] [place] [id number] [place] [address] 61413- 2569 Oct, Anxiety disorder, unspecified F41.9 and Depressive disorder , not elsewhere classified F32.9 [place] [address]65100[place] [address] September, Anxiety disorder, unspecified F41.9 and Depressive disorder , not elsewhere classified F32.9 [place] [address]65100[place], [place] [address]- 7625 Aug, Onychomycosis B35.1 and DM neuro manif type II E11.[address] [id number] [place]KE[place] [address] Aug, [place] [address] [place] [address] 44182- 1237 Aug, Anxiety disorder, unspecified F41.9 and Depressive disorder , not elsewhere classified F32.[address] [id number] [place] [address] Jul, Type 2 diabetes mellitus without complications E11.9 ; Encounter for Zostavax administration Z23 ; Morbid obesity due to excess calories E66.01 and Other infective otitis externa of left ear H60.[address] [place] [address] [id number] [place] [address] Jul, [place] [address]65100[place] [address]- 5328 Jul, [place] [address]100[place] [address]- [address] Jul, [place] [address] [id number] [place]KE[place] 556[address] Jun, [place] [address] [place] [address] 78504- 4656 Jun, Anxiety disorder, unspecified F41.9 and Depressive disorder , not elsewhere classified F32.[address] [address] [id number] [place]KE[place] [address] Jun, Abscess, ear canal H60.00 [facility] [address] [id number] [place]KE[place] [address] Jun, Abscess, ear canal H60.[address] [id number] [place] [address] Jun, [facility] [address] [place] [id number] 6737[address]- 8329 May, Anxiety disorder, unspecified F41.9 and Depressive disorder , not elsewhere classified F32.[address] [id number] [place]KE[place] [address] Apr, Diabetes mellitus, controlled E11.9 and Breast cancer screening Z12.[address] [id number] [place]KE[place] [address] Apr, Diabetes mellitus, controlled E11.9 ; Breast cancer screening Z12.39 and Morbid obesity due to excess calories E66.01 [facility] [address] [place] [address] 16253- 6113 Apr, Anxiety disorder, unspecified F41.9 and Depressive disorder , not elsewhere classified F32.[address] [id number] [place]KE[place] [address] Mar, [facility] [address] [place] [id number] [place] [address] 72594- 1499 Mar, Encounter for immunization Z23 [facility] [address] [place] [address] 21684- 0916 Mar, Anxiety disorder, unspecified F41.9 and Depressive disorder , not elsewhere classified F32.9 [facility] [address] [place] [address] 97805- 9516 Feb, Foot ulcer, right L97.519 and DM neuro manif type II E11.40 [facility] [address] [place] [id number] [place] [address] 36115- 9148 Jan, Anxiety disorder, unspecified 300.00 and Depressive disorder , not elsewhere classified 311 [facility] [address] [facility] [id number][place] [address] Jan, [facility] [address]65100[place], [place] [address]- 1728 Jan, Cellulitis of right foot 682.7 ; Onychomycosis 110.1 ; Neuropathy 355.9 and Foot ulcer 707.15 [place] [address], [place] [address]- 7754 Jan, Anxiety disorder, unspecified 300.00 and Depressive disorder , not elsewhere classified [address] [id number] [place]KE[place] [address] Jan, Anxiety disorder, unspecified 300.00 ; Shortness of breath 786.05 and Coronary atherosclerosis of unspecified type of vessel, umkumiut or graft 414.00 [place] [address] [place] [id number], [place] [address]- 6177 Dec, Anxiety disorder, unspecified 300.00 and Depressive disorder , not elsewhere classified 311 [place] [address], [place] [address]- 0669 Dec, Anxiety disorder, unspecified 300.00 and Depressive disorder , not elsewhere classified [address] [id number] [place]KE[place] [address]781 Nov, [place] [address] [place] [id number], [place] [address]- 4580 Nov, Anxiety disorder, unspecified 300.00 and Depressive disorder , not elsewhere classified [address] [id number] [place] [address] Nov, Shortness of breath 786.05 and Morbid obesity 278.01 [place] [address] [place] [id number] [address]1892- 4076 Nov, Anxiety disorder, unspecified 300.00 and Depressive disorder , not elsewhere classified [address] [id number] LAKE[place] 614967233 Oct, Asthma, moderate persistent 493.90 [facility] [address] [place] [address] [id number] 373471- 0980 Oct, Anxiety disorder, unspecified 300.00 and Depressive disorder , not elsewhere classified 311 [facility] [address] [place] [id number], [place] [address]- 7266 September, Hammertoe 735.4 ; Onychomycosis 110.1 and Type I diabetes mellitus with neurological manifestations 250.61 [facility] [address] [facility] [id number] [place]KE[place] [address]1334[address] September, [facility] [address] [place] [address] 54407- 6516 September, Anxiety disorder, unspecified 300.00 and Depressive disorder , not elsewhere classified 311 [facility] [address] [facility] [id number] [place] [address] September, Diabetes type 2, controlled 250.00 ; Asthma, mild persistent 493.90 and Dermatitis, contact 692.9 [facility] [address] [facility] [id number] [place]KE[place] [address] September, [facility] [address], [place] [address]- 4685 September, Anxiety state, unspecified 300.00 and Depressive disorder, not elsewhere classified 311 [facility] [address] [place] [id number], [place] [address]- 4779 Aug, [facility] [address]100[place] [address]681- 8809 Aug, [facility] [address]100[place] [address]687[address]76- 0063 Jul, [facility] [address]100[place] 103402- 9830 Jul, [facility] [address] [place] [id number] [address]2690244- 4432 Jul, [facility] [address] [place] [address] [id number] [place] [address]- 3274 Jul, 2014 [facility] [place] [facility] [address] [id number] [place] [address]- 2426 Jul, 2014 [facility] [place] [facility] [address] [id number] [place] [address]- 9046 Jul, 2014 [facility] [place] [facility] [address] [id number] [place] [address]- 5386 Jul, 2014 [facility] [place] [facility] [address] [id number] [place] [address]- 4985 Jul, [facility] [place] [facility] [address] [id number] [place] [address]- 2703 Jun, 2014 [facility] [place] [facility] [address] [facility] [id number] [place] [address]- 7723 Jun, 2014 [facility] [place] [facility] [address] [facility] [id number] [place] [address]- 7822 Jun, 2014 [facility] [place] [facility] [address] [facility] [id number] [place] [address]- 2808 Jun, 2014 [facility] [place] [facility] [address] [facility] [id number] [place] [address]- 8367 17 Jun, 2014 [facility] [place] [facility] [address] [facility] [id number] [place] [address]- 2640 17 Jun, 2014 [facility] [place] [facility] [address] [facility] [id number] [place] [address]- 9579 16 Jun, 2014 [facility] [place] [facility] [address] [facility] [id number] [place] [address]- 0553 16 Jun, 2014 [facility] [place] [facility] [address] [facility] [id number] [place] [address]- 7736 Jun, 2014 [facility] [place] [facility] [address] [facility] [id number] [place] [address]- 1656 11 Jun, 2014 [facility] [place] [facility] [address] [facility] [id number], [place] [address]- 2546 Jun, [facility] [place] [facility] [address] [id number] [place] [address]- 2261 Jun, [facility] [place] [facility] [address] [id number] [place] [address]- 4822 Jun, [facility] [place] [facility] [address] [id number] [place] [address]- 3542 Jun, [facility] [place] [facility] [address] [id number] [place] [address]- 3221 May, [facility] [place] [facility] [address] [id number] [place] [address]- 2130 May, [facility] [place] [facility] [address] [id number] [place] [address]- 1351 May, [facility] [place] [facility] [address] [id number] [place] [address]- 6775 May, [facility] [place] [facility] [address] [id number] [place] [address]- 8382 May, [facility] [place] [facility] [address] [id number] [place] [address]- 5402 May, [facility] [place] [facility] [address] [facility] [id number] [place] [address]- 9937 May, [facility] [place] [facility] [address] [id number] [place] [address]- 3281 May, [facility] [place] [facility] [address] [id number] [place] [address]- 2305 Apr, [facility] [place] [facility] [address] [id number] [place] [address]- 4270 Apr, [facility] [place] [facility] [address] [id number] [place] [address]- 9626 Apr, [facility] [place] [facility] [address] [id number] [place] [address]- 3706 Apr, [facility] [place] [facility] [address] [id number] [place] [address]- 3439 20 Apr, 2014 [facility] [place] [facility] [address] [id number] [place] [address]- 6826 20 Apr, 2014 [facility] [place] [facility] [address] [id number] [place] [address]- 8816 15 Apr, 2014 [facility] [place] [facility] [address] [id number] [place] [address]- 3306 15 Apr, 2014 [facility] [place] [facility] [address] [id number] [place] [address]- 8639 10 Apr, 2014 [facility] [place] [facility] [address] [id number] [place] [address]- 6645 Apr, [facility] [place] [facility] [address] [id number] [place] [address]- 2398 Apr, [facility] [place] [facility] [address] [id number] [place] [address]- 4863 Apr, [facility] [place] [facility] [address] [id number] [place] [address]- 1333 Mar, [facility] [place] [facility] [address] [id number] [place] [address]- 6156 Mar, [facility] [place] [facility] [address] [id number] [place] [address]- 5187 18 Mar, 2014 [facility] [place] [facility] [address] [id number] [place] [address]- 4277 18 Mar, 2014 [facility] [place] [facility] [address] [id number] [place] [address]- 3819 17 Mar, 2014 [facility] [place] [facility] [address] [id number] [place] [address]- 6503 17 Mar, 2014 [facility] [place] [facility] [address] [id number] [place] [address]- 9445 12 Mar, 2014 [facility] [place] [facility] [address] [id number] [place] [address] Mar, [facility] [place] [facility] [address] [id number] [place] [address] Feb, [facility] [place] [facility] [address] [id number] [place] [address] Feb, [facility] [place] [facility] [address] [id number] [place] [address] Feb, [facility] [place] [facility] [address] [id number] [place] [address] Feb, [facility] [place] [facility] [address] [id number] [place] [address] Feb, [facility] [place] [facility] [address] [id number] [place] [address] Feb, [facility] [place] [facility] [address] [id number] [place] [address] Feb, [facility] [place] [facility] [address] [id number] [place] [address] Feb, [facility] [place] [facility] [address] [id number] [place] [address] 19 Jan, 2014 [facility] [place] [facility] [address] [id number] [place] [address] 19 Jan, 2014 [facility] [place] [facility] [address] [id number], [place] [address] 17 Sep, 2013 [facility] [place] [facility] [address] [id number], [place] [address] 17 Sep, 2013 [facility] [place] [facility] [address] [id number] [place] [address] 16 Sep, 2013 [facility] [place] [facility] [address] [id number], [place] [address] 16 Sep, 2013 [facility] [place] [facility] [address] [id number], [place] [address] 15 Jan, 2013 [facility] [place] [facility] [address] [id number] [place] [address] 15 Jan, 2013 [facility] [place] [facility] [address] [id number] [place] [address] 15 Jan, 2014 [facility] [place] [facility] [address] [id number] [place] [address] 15 Jan, 2014 [facility] [place] [facility] [address] [address] [id number] [place] [address] 09 Jan, 2014 [facility] [place] [facility] [address] [id number] [place] [address] Jan, [facility] [place] [facility] [address] [id number] [place] [address] 8652 Dec, [facility] [place] [facility] [address] [id number] [place] [address]- 5821 Dec, [facility] [place] [facility] [address] [id number] [place] [address] 2413 Dec, [facility] [place] [facility] [address] [id number] [place] [address] 0426 Dec, [facility] [place] [facility] [address] [id number] [place] [address] 8902 Nov, [facility] [place] [facility] [address] [id number] [place] [address] 4319 Nov, [facility] [place] [facility] [address] [id number] [place] [address]- 8235 Nov, [facility] [place] [facility] [address] [id number] [place] [address]- 3730 Nov, [facility] [place] [facility] [address] [id number] [place] [address]- 1221 Oct, [facility] [place] [facility] [address] [id number] [place] [address]- 1839 Oct, [facility] [place] [facility] [address] [id number] [place] [address]- 4324 Oct, [facility] [place] [facility] [address] [id number] [place] [address]- 6496 Oct, [facility] [place] [facility] [address] [id number] [place] [address]- 3068 Oct, [facility] [place] [facility] [address] [id number] [place] [address]- 0271 Oct, [facility] [place] [facility] [address] [id number] [place] [address]- 8441 Oct, [facility] [place] [facility] [address] [id number] [place] [address]- 8769 Oct, [facility] [place] [facility] [address] [id number] [place] [address]- 9556 Oct, [facility] [place] [facility] [address] [id number] [place] [address]- 4246 Oct, [facility] [place] [facility] [address] [id number] [place] [address]- 5477 September, [facility] [place] [facility] [address] [id number] [place] [address]- 4589 September, [facility] [place] [facility] [address] [id number] [place] [address]- 6090 September, [facility] [place] [facility] [address] [id number] [place] [address]- 5406 September, [facility] [place] [facility] [address] [id number] [place] [address]- 9347 September, [facility] [place] [facility] [address] [id number] [place] [address]- 6617 September, [facility] [place] [facility] [address] [id number] [place] [address]- 9481 September, [facility] [place] [facility] [address] [id number] [place] [address]- 9614 September, [facility] [place] [facility] [address] [id number] [place] [address]- 3371 Aug, [facility] [place] [facility] [address] [id number] [place] [address]- 0457 Aug, [facility] [place] [facility] [address] [id number] [place] [address]- 8413 Aug, [facility] [place] [facility] [address] [id number] [place] [address]- 6727 Aug, [facility] [place] [facility] [address] [id number] [place] [address]- 4059 Aug, [facility] [place] [facility] [address] [id number] [place] [address]- 0357 Aug, [facility] [place] [facility] [address] [id number] [place] [address]- 8445 Aug, [facility] [place] [facility] [address] [id number] [place] [address]- 0671 Aug, [facility] [place] [facility] [address] [id number] [place] [address]- 5732 Aug, [facility] [place] [facility] [address] [id number] [place] [address]- 1853 Jul, [facility] [place] [facility] [address] [id number] [place] [address]- 4433 Jul, [facility] [place] [facility] [address] [id number] [place] [address]- 7615 Jul, [facility] [place] [facility] [address] [id number] [place] [address]- 0563 Jul, [facility] [place] [facility] [address] [id number] [place] [address]- 6216 Jul, [facility] [place] [facility] [address] [id number] [place] [address]- 2814 Jul, [facility] [place] [facility] [address] [id number] [place] [address]- 5337 Jul, [facility] [place] [facility] [address] [id number] [place] [address]- 1106 24 Jul, 2013 [facility] [place] [facility] [address] [id number] [place] [address]- 2607 18 Jul, 2013 [facility] [place] [facility] [address] [id number] [place] [address]- 5126 18 Jul, 2013 [facility] [place] [facility] [address] [id number] [place] [address]- 8226 17 Jul, 2013 [facility] [place] [facility] [address] [id number] [place] [address]- 0906 Jul, [facility] [place] [facility] [address] [id number] [place] [address]- 5738 Jul, [facility] [place] [facility] [address] [id number] [place] [address]- 9436 Jul, [facility] [place] [facility] [address] [id number] [place] [address]- 9132 Jul, [facility] [place] [facility] [address] [id number] [place] [address]- 6543 Jul, [facility] [place] [facility] [address] [id number] [place] [address]- 4203 Jul, [facility] [place] [facility] [address] [id number] [place] [address]- 8352 Jul, [facility] [place] [facility] [address] [id number] [place] [address]- 2806 Jul, [facility] [place] [facility] [address] [id number] [place] [address]- 3476 Jul, [facility] [place] [facility] [address] [id number] [place] [address]- 6206 Jun, [facility] [place] [facility] [address] [id number] [place] [address]- 1226 Jun, [facility] [place] [facility] [address] [id number] [place] [address]- 6731 Jun, [facility] [place] [facility] [address] [id number] [place] [address]- 5899 Jun, [facility] [place] [facility] [address] [id number] [place] [address]- 1226 Jun, [facility] [place] [facility] [address] [facility] [id number] [place] [address]- 5626 Jun, [facility] [place] [facility] [address] [id number] [place] [address]- 1356 Jun, [facility] [place] [facility] [address] [id number] [place] [address]- 5846 Jun, [facility] [place] [facility] [address] [facility] [id number] [place] [address]- 8332 Jun, [facility] [place] [facility] [address] [facility] [id number] [place] [address]- 6821 Jun, [facility] [place] [facility] [address] [id number] [place] [address]- 4923 Jun, [facility] [place] [facility] [address] [facility] [id number] [place] [address]- 9039 Jun, [facility] [place] [facility] [address] [facility] [id number] [place] [address]- 7303 May, [facility] [place] [facility] [address] [id number] [place] [address]- 5322 May, [facility] [place] [facility] [address] [id number] [place] [address]- 5667 May, [facility] [place] [facility] [address] [id number] [place] [address]- 7598 May, [facility] [place] [facility] [address] [facility] [id number] [place] [address]- 6947 May, [facility] [place] [facility] [address] [facility] [id number] [place] [address]- 3732 May, [facility] [place] [facility] [address] [id number] [place] [address]- 5538 May, [facility] [place] [facility] [address] [id number] [place] [address]- 1496 May, [facility] [place] [facility] [address] [id number] [place] [address]- 7043 May, [facility] [place] [facility] [address] [id number] [place] [address]- 1275 May, [facility] [place] [facility] [address] [id number] [place] [address]- 3173 May, [facility] [place] [facility] [address] [id number] [place] [address]- 3525 May, [facility] [place] [facility] [address] [id number] [place] [address]- 8575 May, [facility] [place] [facility] [address] [id number] [place] [address]- 4422 May, [facility] [place] [facility] [address] [id number] [place] [address]- 7868 Apr, [facility] [place] [facility] [address] [id number] [place] [address]- 2322 Apr, [facility] [place] [facility] [address] [id number] [place] [address]- 3781 Apr, [facility] [place] [facility] [address] [id number] [place] [address]- 8228 17 Apr, 2013 [facility] [place] [facility] [address] [id number] [place] [address]- 5774 16 Apr, 2013 [facility] [place] [facility] [address] [id number] [place] [address]- 7721 16 Apr, 2013 [facility] [place] [facility] [address] [id number] [place] [address]- 8644 12 Apr, 2013 [facility] [place] [facility] [address] [id number] [place] [address]- 6012 Apr, [facility] [place] [facility] [address] [id number] [place] [address]- 4182 Apr, [facility] [place] [facility] [address] [id number] [place] [address]- 7794 Apr, [facility] [place] [facility] [address] [id number] [place] [address]- 4468 Apr, [facility] [place] [facility] [address] [id number] [place] [address]- 2573 Apr, [facility] [place] [facility] [address] [id number] [place] [address]- 0771 Mar, [facility] [place] [facility] [address] [id number] [place] [address]- 7775 Mar, [facility] [place] [facility] [address] [id number] [place] [address]- 3852 Mar, [facility] [place] [facility] [address] [id number], [place] [address]- 0932 Mar, [facility] [place] [facility] [address] [id number], [place] [address]- 8682 Mar, [facility] [place] [facility] [address] [id number], [place] [address]- 9183 Mar, [facility] [place] [facility] [address] [id number], [place] [address]- 6661 Mar, [facility] [place] [facility] [address] [id number], [place] [address]- 2194 Mar, [facility] [place] [facility] [address] [id number], [place] [address]- 3260 Mar, [facility] [place] [facility] [address] [id number], [place] [address]- 8020 Mar, [facility] [place] [facility] [address] [id number], [place] [address]- 9379 Mar, [facility] [place] [facility] [address] [facility] [id number], [place] [address]- 0351 Mar, [facility] [address] [facility] [id number] 2887 Feb, [facility] [address] [facility] [id number], [place] [address]- 5230 Feb, [facility] [address] [id number] [place] [id number] Feb, [facility] [address] [facility] [id number], [place] [address]- 3617 Feb, [facility] [address] [facility] [id number], [place] [address]- 9647 Feb, [facility] [address] [facility] [id number], [place] [address]- 1028 Feb, [facility] [address] [facility] [id number], [place] [address]- 5979 Feb, [facility] [address] [facility] [id number], [place] [address]- 8607 Feb, [facility] [address] [facility] [id number], [place] [address]- 1918 Feb, [facility] [address] [facility] [id number], [place] [address]- 7672 Feb, [facility] [place] [facility] [address] [facility] [id number], [place] [address]- 1442 Feb, [facility] [place] [facility] [address] [facility] [id number], [place] [address]- 5132 Feb, [facility] [address] [facility] [id number], [place] [address]- 6642 Feb, [facility] [place] [facility] [address] [facility] [id number], [place] [address]- 9033 Jan, [facility] [address] [id number] [place]ILLS[place] [id number] Jan, [facility] [address] [id number] [place] [id number] 16 Jan, 2013 [facility] [place] [address] [id number] [place] [id number] Jan, [facility] [place] [address] [id number] [place] [id number] Jan, [facility] [place] [facility] [address] [id number] [place] [address]- 6543 Jan, [facility] [address] [id number] [place] [id number] Jan, [facility] [place] [facility] [address] [id number] [place] [address]- 2363 Dec, [facility] [place] [facility] [address] [id number] [place] [address]- 2231 Dec, [facility] [place] [facility] [address] [facility] [id number] [place] [address]- 4903 Dec, [facility] [place] [address] [id number] [place] [id number] Dec, [facility] [address] [id number] [place] [address] Dec, [facility] [place] [address] [id number] [place] [id number] Dec, [facility] [place] [facility] [address] [id number] [place] [address]- 7750 Dec, [facility] [place] [facility] [address] [facility] [id number] [place] [address]- 4340 Dec, [facility] [place] [address] [id number] [place] [id number] Dec, [facility] [place] [facility] [address] [id number] [place] [address]- 2774 Dec, [facility] [place] [facility] [address] [facility] [id number] [place] [address]- 5642 Nov, [facility] [place] [facility] [address] [facility] [id number] [place] [address]- 9029 Nov, [facility] [place] [facility] [address] [facility] [id number] [place] [address]- 2546 Nov, [facility] [place] [address] [id number] [place] [id number] Nov, [facility] [place] [address] [facility] [id number] [place] [id number] Oct, [facility] [place] [address] [facility] [id number] [place] [id number] Oct, [facility] [place] [facility] [address] [facility] [id number], [place] [address]- 9226 Oct, [facility] [place] [facility] [address] [facility] [id number] [place] [address]- 2546 Oct, [facility] [place] [facility] [address] [facility] [id number], [place] [address]- 7586 Oct, [facility] [place] [address] [facility] [id number] [place] [id number] Oct, [facility] [place] [facility] [id number], [place] [address]- 7676 Oct, [facility] [place] [address] [facility] [id number] [place] [id number] Oct, [facility] [place] [address] [facility] [id number] [place] [id number] September, [facility] [place] [facility] [address] [facility] [id number], [place] [address]- 2636 September, [facility] [place] [address] [facility] [id number] [place] [id number] September, [facility] [place] [facility] [address] [facility] [id number], [place] [address]- 2546 September, [facility] [place] [facility] [address] [facility] [id number], [place] [address]- 6586 September, [facility] [place] [facility] [address] [facility] [id number], [place] [address]- 2546 September, [facility] [place] [address] [facility] [id number] [place] [id number] September, [facility] [place] [facility] [address] [id number], [place] [address]- 6066 September, [facility] [address] [facility] [id number] [place] [address]- 2576 September, [facility] [place] [facility] [address] [facility] [id number] [place] [address]- 6026 Aug, [facility] [address] [facility] [id number] [place] [id number] Aug, [facility] [address] [facility] [id number] [place] [id number] Aug, [facility] [address] [facility] [id number], [place] [address]- 0076 Aug, [facility] [place] [facility] [address] [facility] [id number], [place] [address]- 2546 Aug, [facility] [address] [id number] [place] [id number] 15 Aug, 2012 [facility] [address] [facility] [id number] [place] [id number] Aug, [facility] [address] [facility] [id number], [place] [address]- 5246 Aug, [facility] [place] [facility] [address] [facility] [id number], [place] [address]- 1216 Aug, [facility] [place] [facility] [address] [facility] [id number], [place] [address]- 3493 Jul, [facility] [place] [address] [facility] [id number] [place]ILLS[place] [id number] Jul, [facility] [place] [facility] [address] [facility] [id number] [place] [address]- 5041 Jul, [facility] [place] [facility] [address] [facility] [id number], [place] [address]- 1674 Jul, [facility] [place] [facility] [address] [facility] [id number], [place] [address]- 2603 Jul, [facility] [place] [facility] [address] [facility] [id number], [place] [address]- 2546 Jul, [facility] [address] [facility] [id number], [place] [address]- 2546 Jul, [facility] [place] [facility] [address] [id number], [place] [address]- 2546 Jul, [facility] [place] [address] [id number] [place] [id number] Jul, [facility] [place] [address] [id number] [place]ILL[place] [id number] Jun, [facility] [address] [facility] [id number], [place] [address]- 7706 Jun, [facility] [address] [id number] [place]ILL[place] [id number] Jun, [facility] [id number], [place] [address]- 8816 Jun, [facility] [id number], [place] [address]- 0616 May, [facility] [id number], [place] [address]- 9271 May, [facility] [place] [id number] [place] [id number] May, [facility] [address] [id number] [place] [address] May, [facility] [place] [facility] [id number], [place] [address]- 9906 May, [facility] [place] [address] [id number] [place] [id number] May, [facility] [place] [facility] [address] [facility] [id number], [place] [address]- 5466 May, [facility] [place] [facility] [address] [facility] [id number], [place] [address]- 2546 May, [facility] [place] [address] [id number] [place] [id number] Apr, [facility] [address] [id number] [place] [id number] Apr, [facility] [address] [facility] [id number] [place] [address]- 1616 Apr, [facility] [place] [facility] [address] [facility] [id number] [place] [address]- 8606 Apr, [facility] [place] [facility] [address] [facility] [id number] [place] [address]- 6396 Apr, [facility] [place] [facility] [address] [facility] [id number] [place] [address]- 2306 Apr, [facility] [place] [address] [facility] [id number] [place] [id number] Apr, [facility] [place] [facility] [address] [id number] [place] [address] Apr, [facility] [place] [facility] [id number] [address] Apr, [facility] [place] [facility] [address] [id number] [address] Apr, [facility] [address] [facility] [id number] [place] [id number] Apr, [facility] [place] [facility] [address] [id number], [place] [address] Apr, [facility] [place] [facility] [address] [id number], [place] [address] Apr, [facility] [place] [facility] [address] [id number], [place] [address] Apr, [facility] [place] [facility] [address] [id number] [place] [address] Mar, [facility] [place] [facility] [address] [id number] [place] [address] Mar, [facility] [place] [facility] [address] [id number] [place] [address] 95[address] Mar, [facility] [place] [facility] [address] [id number], [place] [address] Mar, [facility] [address] [facility] [id number] [place] [id number] Mar, [facility] [place] [facility] [address] [id number], [place] [address] Mar, [facility] [address] [facility] [id number] [place] [id number] Mar, [facility] [place] [facility] [address] [id number], [place] [address] 6768 Mar, [facility] [address] [facility] [id number] [place] [id number] Feb, [facility] [place] [facility] [address] [id number], [place] [address] Feb, [facility] [place] [facility] [id number] [address] Feb, [facility] [place] [facility] [address] [id number], [place] [address] Feb, [facility] [place] [facility] [address] [id number], [place] [address] Jan, [facility] [id number] [place] [id number] Jan, [facility] [place] [facility] [address] [id number], [place] [address] 13 Jan, 2012 [facility] [place] [facility] [address] [id number], [place] [address] 10 Jan, 2012 [facility] [place] [facility] [address] [id number], [place] [address] 05 Jan, 2012 [facility] [address] [facility] [id number] [place]ILL[place] [id number] Jan, [facility] [place] [facility] [address] [id number], [place] [address] Dec, [facility] [address] [facility] [id number] [place] [id number] Dec, [facility] [place] [facility] [address] [id number] [place] [address] Dec, [facility] [place] [facility] [address] [id number] [place] [address] 8786 Dec, [facility] [place] [facility] [address] [id number] [place] [address] 4077 Nov, [facility] [place] [facility] [address] [id number] [place] [address]33 Nov, [facility] [place] [facility] [address] [id number] [place] [address]995 Nov, [facility] [address] [facility] [id number] [place]ILLS[place] [id number] Nov, [facility] [place] [facility] [address] [id number] [place] [address] Nov, [facility] [address] [facility] [id number] [place] [id number] Nov, [facility] [place] [facility] [address] [id number] [place] [address] Nov, [facility] [place] [facility] [address] [id number], [place] [address] Nov, [facility] [place] [facility] [address] [id number], [place] [address] Nov, [facility] [place] [facility] [address] [id number], [place] [address] Oct, [facility] [place] [facility] [address] [id number] [place] [address]076 Oct, [facility] [address] [id number] [place] [id number] Oct, [facility] [address] [id number] [place] [id number] Oct, [facility] [address] [id number] [place]ILL[place] [id number] Oct, [facility] [place] [facility] [address] [id number] [place] [address] Oct, [facility] [address] [id number] [place] [address]176 Oct, [facility] [place] [facility] [address] [id number] [place] [address]- 8396 Oct, [facility] [place] [facility] [address] [id number] [place] [address] September, [facility] [place] [facility] [address] [id number] [place] [address] 8026 September, [facility] [place] [facility] [address] [id number] [place] [address] September, [facility] [address] [id number] [place] [address] 6253 Aug, [facility] [place] [facility] [address] [id number] [place] [address] 4209 Aug, [facility] [address] [id number] [place] [address] 6154 Aug, [facility] [address] [id number] [place] [address]- 6616 Aug, [facility] [address] [id number] [address] Aug, [facility] [place] [id number] [id number] Jul, [facility] [address] [id number] [place] [address] 7986 Jul, [facility] [place] [facility] [address] [id number] [place] [address]- 2696 24 Jun, 2011 [facility] [place] [facility] [address] [id number] [place] [address]- [address] Jun, [facility] [place] [facility] [address] [id number] [place] [address]- 6086 Jun, [facility] [address] [id number] [place] [address]- [address]88 10 Jun, 2011 [facility] [place] [facility] [address] [id number] [place] [address]- 2986 02 Jun, 2011 [facility] [place] [facility] [address] [id number] [place] [address]- 8126 May, [facility] [place] [facility] [address] [id number] [place] [address]- 8336 May, [facility] [address] [id number] [place] [address]- 0706 May, [facility] [place] [facility] [address] [id number] [place] [address]- 4226 May, [facility] [place] [facility] [address] [id number] [place] [address]- 9156 May, [facility] [place] [facility] [address] [id number] [place] [address]- 2940 May, [facility] [address] [id number] [place] [address]- 6526 May, [facility] [place] [facility] [address] [id number] [place] [address] May, [facility] [place] [facility] [address] [id number] [place] [address] 27 Apr, 2011 [facility] [place] [facility] [address] [id number] [place] [address] 20 Apr, 2011 [facility] [place] [facility] [address] [id number] [place] [address] 16 Apr, 2011 [facility] [place] [facility] [address] [id number] [place] [address] 15 Apr, 2011 [facility] [place] [facility] [address] [id number] [place] [address] 13 Apr, 2011 [facility] [place] [facility] [address] [id number] [place] [address] 05 Apr, 2011 [facility] [place] [facility] [address] [id number] [place] [address] Mar, [facility] [place] [facility] [address] [id number] [place] [address] Mar, [facility] [place] [facility] [address] [id number] [place] [address] 15 Mar, 2011 [facility] [place] [facility] [address] [id number] [place] [address] 14 Mar, 2011 [facility] [place] [facility] [address] [id number] [place] [address] Mar, [facility] [place] [facility] [address] [id number] [place] [address] Mar, [facility] [place] [facility] [address] [id number] [place] [address] Mar, [facility] [place] [facility] [address] [id number] [place] [address] Mar, [facility] [place] [facility] [address] [id number] [place] [address] Feb, [facility] [place] [facility] [address] [id number] [place] [address] 16 Jun, 2010 [facility] [place] [facility] [address] [id number] [place] [address] May, [facility] [place] [facility] [address] [id number] [place] [address] May, [facility] [place] [facility] [address] [id number] [place] [address] Apr, [facility] [place] [facility] [address] [id number] [place] [address] Apr, [facility] [place] [facility] [address] [id number] [place] Apr, [facility] [place] [facility] [address] [id number] [place] [address] Mar, [facility] [place] [facility] [address] [id number] [place] [address] Mar, [facility] [place] [facility] [address] [id number] [place] [address] Mar, [facility] [place] [facility] [address] [id number] [place] [address] Mar, [facility] [place] [facility] [address] [id number] [place] [address] Mar, [facility] [place] [facility] [address] [id number] [place] [address] Feb, [facility] [place] [facility] [address] [id number] [place] [address] Feb, [facility] [address] [id number] [place] [address] Oct, [facility] [place] [facility] [address] [id number] [place] [address] September, [facility] [place] [facility] [address] [id number] [place] [address] Apr, [facility] [place] [facility] [address] [id number] [place] [address] Apr, [facility] [place] [facility] [address] [id number], [place] [address] 30 Mar, 2009 [facility] [place] [facility] [address] [id number] [place] [address] Mar, [facility] [place] [facility] [address] [id number] [place] [address] Mar, [facility] [place] [facility] [address] [id number] [place] [address] 06 Mar, 2009 [facility] [place] [facility] [address] [id number], [place] [address] Mar, [facility] [address] [id number] [place] [address] Feb, [facility] [address] [id number], [place] [address] Feb, [facility] [address] [id number], [place] [address] Jan, [facility] [address] [id number], [place] [address] Oct, IMMUNIZATIONS No Known Immunizations SOCIAL HISTORY Never Assessed REASON FOR VISIT refill PLAN OF CARE VITAL SIGNS MEDICATIONS Medication Instructions Dosage Frequency Start Date End Date Duration Status Metformin HCl 1000 MG Orally 2 times a day 1 tablet 12h 90 days Active RESULTS No Results PROCEDURES [...]
--- OUTSIDE RECORDS SUMMARY | 2017-11-22 09:51 | XMS REPORT ---
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 Builder Name Role Phone JENNIFER IGLESIAS Unavailable PROBLEMS Type Condition ICD9-CM Code [id number] Code Onset Dates Condition Status SNOMED Code Problem Abscess, ear canal H60.00 Active 14527505 Problem Morbid obesity due to excess calories E66.01 Active 985006023 Problem Other infective otitis externa of left ear H60.392 Active 12259614 Problem Hyperlipidemia, unspecified hyperlipidemia type E78.5 Active 62631289 Problem Essential hypertension I10 Active 48661394 Problem Type 2 diabetes mellitus without complications E11.9 Active 877290557 Problem Encounter for Zostavax administration Z23 Active 577230738 Problem Mild persistent asthma without complication J45.30 Active 567786965 Problem DM neuro manif type II E11.49 Active 92850770 Problem DM neuro manif type II E11.40 Active 69498650 Problem Depressive disorder, not elsewhere classified F32.9 Active 75905671 Problem Anxiety disorder, unspecified F41.9 Active 473443100 Assessment Mild persistent asthma without complication J45.30 Jan, Active 747363818 Problem Diabetes mellitus, controlled E11.9 Active 288097337 ALLERGIES Substance Reaction Event Type Date Status Ultram Unknown Drug Allergy Jan, Active Theophylline Unknown Drug Allergy Jan, Active Tegretol Unknown Drug Allergy Jan, Active Talacen Unknown Drug Allergy Jan, Active Imitrex Unknown Drug Allergy Jan, Active Erythromycin Unknown Drug Allergy Jan, Active Emcyt Unknown Drug Allergy Jan, Active Dilantin Unknown Drug Allergy Jan, Active Darvon Unknown Drug Allergy Jan, Active Byetta 10 MCG Pen Unknown Drug Allergy Jan, Active SOCIAL HISTORY No smoking Hx information available PLAN OF CARE VITAL SIGNS Height 65 in 2016-02-02 Weight 244.5 lbs 2016-02-02 Heart Rate 87 bpm 2016-02-02 Respiratory Rate 18 2016-02-02 Oximetry 97 % 2016-02-02 BMI 40.68 kg/m2 2016-02-02 Blood pressure systolic 118 mmHg 2016-02-02 Blood pressure diastolic 80 mmHg 2016-02-02 MEDICATIONS Medication Instructions Dosage Frequency Start Date End Date Duration Status Metformin HCl 1000 MG Orally Twice a day 1 tablet with meals 12h 30 Active Ventolin HFA 108 (90 Base) MCG/ACT Inhalation 4 times a day as needed for shortness of breath/cough 2 puffs Jul, Active Hydrochlorothiazide 25 TAKE 1 TABLET BY MOUTH EVERY DAY 30 Active Zanaflex 4 MG Orally every 8 hrs 8h Active Lisinopril 2.5 TAKE 1 TABLET BY MOUTH EVERY DAY 90 Active E-Z Spacer 12h Active Lisinopril 2.5 MG Orally Once a day 1 tablet 24h Mar, Active Nebulizer 1 by inhalation route 4 times a day 3 mls 6h Active Fish Oil 500 MG Orally Once a day 3 capsule 24h Active Carafate 1 GM Orally Four times a day 1 tablet on an empty stomach 6h Active Fosamax 70 MG Orally once a week Take 1 tablet by Oral route 1 time per week 30 Active Sucralfate 1 TAKE 1 TABLET BY MOUTH FOUR TIMES DAILY 30 MINUTES BEFORE BEDTIME AND MEALS 30 Active Flovent HFA 110 Inhalation Twice a day rinse mouth after use 2 puffs Active Colace 100 MG Orally Two times per day PRN 1 capsule as needed Active Gabapentin 800 MG Orally Four times a day 6h Active Claritin 10 MG Orally Once a day 1 tablet 24h Active Loratadine 10 TAKE 1 TABLET BY MOUTH DAILY 30 Active Crestor 40 mg Orally Once a day 1 tablet 24h Active Calcium + D 315-200 MG-UNIT Orally Twice a day 1 tablet with meals 12h Active Lyrica 100 MG Orally Twice a day 1 capsule 12h Active Sertraline HCl 100 MG Orally Once a day 1 1/2 tablets 24h Active Metoprolol Tartrate 25 MG Orally Twice a day TAKE TWO TABLETS BY MOUTH DAILY IN THE MORNING, AND ONE TABLET BY MOUTH DAILY IN THE EVENING. 12h Active Alendronate Sodium 70 TAKE 1 TABLET BY MOUTH ONCE WEEKLY 4 Active Kent 7.5-325 MG Orally 3 times a day 1 tablet as needed 8h Active Flovent HFA 110 MCG/ACT 2 puffs Twice a day Inhalation 30 days 30 Active Ativan 0.5 MG Orally Two times per day 1 tablet as needed for severe anxiety Active nexium 40 mg Orally 2 times per day 1 capsule Active Ipratropium-Albuterol 0.5-2.5 (3) MG/3ML Inhalation every 6 hrs 3 ml 6h Active RESULTS No Results PROCEDURES Procedure Date Ordered Related Diagnosis Body Site MEASURE BLOOD OXYGEN LEVEL Feb 02, 2016 [facility] VISIT ESTABLISHED PATIENT Feb 02, 2016 Office Visit, Est Pt., Level 4 Feb 02, 2016 IMMUNIZATIONS No Known Immunizations
--- OUTSIDE RECORDS SUMMARY | 2017-11-22 09:52 | XMS REPORT ---
Author Author JENNIFER IGLESIAS [facility] Address [address] [place] [address] Care Team Providers Care Industrial Editor Name Role Phone JENNIFER IGLESIAS Unavailable PROBLEMS Type Condition ICD9-CM Code MFS07-EU Code Onset Dates Condition Status SNOMED Code Problem Osteopenia M85.80 Active 965897592 Problem Gynecologic exam normal Z01.419 Active 928053579 Problem Breast cancer screening Z12.39 Active 232730916 Problem Contusion of right foot, initial encounter S90.31XA Active 19915710 Problem Abscess, ear canal H60.00 Active 01993976 Problem High risk medication use Z79.899 Active 342001777574913 Problem Diabetes mellitus, controlled E11.9 Active 384008572 Problem Anxiety disorder, unspecified F41.9 Active 202425736 Problem Lobar pneumonia J18.1 Active 065976555 Problem Creatinine elevation R79.89 Active 301529026 Problem Type 2 diabetes mellitus with diabetic neuropathy, without long-term current use of insulin E11.40 Active 55853923 Problem Anxiety associated with depression F41.8 Active 617022573 Problem Encounter for Zostavax administration Z23 Active 569289907 Problem Type 2 diabetes mellitus without complications E11.9 Active 090029320 Problem Other infective otitis externa of left ear H60.392 Active 71340296 Problem Morbid obesity due to excess calories E66.01 Active 737590391 Problem Essential hypertension I10 Active 52340679 Problem Hyperlipidemia, unspecified hyperlipidemia type E78.5 Active 52398534 Problem DM neuro manif type II E11.40 Active 38741233 Problem DM neuro manif type II E11.49 Active 96342993 Problem Other hammer toe(s) (acquired), left foot M20.42 Active 90181288 Problem Depressive disorder, not elsewhere classified F32.9 Active 91291192 Problem Mild persistent asthma without complication J45.30 Active 884985671 Problem Other hammer toe(s) (acquired), right foot M20.41 Active 252263719 ALLERGIES Unknown Allergies SOCIAL HISTORY No smoking Hx information available PLAN OF CARE VITAL SIGNS MEDICATIONS Unknown Medications RESULTS No Results PROCEDURES No Known procedures IMMUNIZATIONS No Known Immunizations
--- OUTSIDE RECORDS SUMMARY | 2017-11-22 09:52 | XMS REPORT ---
Author Author JEN LU Organization [employer] Address Unknown Phone Unavailable Care Team Providers Care Radio Interference Trouble Shooter Name Role Phone JEN LU Unavailable Allergies No Known Allergies Problems Problem Type Condition Code Onset Dates Condition Status Problem Anxiety disorder, unspecified F41.9 Active Problem Abscess, ear canal H60.00 Active Problem Diabetes mellitus, controlled E11.9 Active Problem Essential hypertension I10 Active Problem Mild persistent asthma without complication J45.30 Active Problem Hyperlipidemia, unspecified hyperlipidemia type E78.5 Active Problem Morbid obesity due to excess calories E66.01 Active Problem Other infective otitis externa of left ear H60.392 Active Problem Type 2 diabetes mellitus without complications E11.9 Active Problem Encounter for Zostavax administration Z23 Active Assessment Depressive disorder, not elsewhere classified F32.9 Active Assessment Anxiety disorder, unspecified F41.9 Active Problem DM neuro manif type II E11.40 Active Problem Depressive disorder, not elsewhere classified F32.9 Active Medications No Known Medications Procedures Procedure Coding System Code Date Psychotherapy, patient &/family, 45 minutes, established patient CPT-4 [id number] November 30, 2015 [facility] VISIT MENTAL HEALTH ESTAB PT CPT-4 G0470 November 30, 2015 Results No Known Results Summary Purpose [employer] Submission
--- OUTSIDE RECORDS SUMMARY | 2017-11-22 09:52 | XMS REPORT ---
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 Name Role Phone JENNIFER IGLESIAS Unavailable PROBLEMS Type Condition ICD9-CM Code JHD46-EB Code Onset Dates Condition Status SNOMED Code Problem Depressive disorder, not elsewhere classified F32.9 Active 74151706 Problem DM neuro manif type II E11.40 Active 35574344 Problem Diabetes mellitus, controlled E11.9 Active 522775222 Problem Anxiety disorder, unspecified F41.9 Active 674131841 Problem Abscess, ear canal H60.00 Active 96958873 Problem Type 2 diabetes mellitus without complications E11.9 Active 732280473 Problem Encounter for Zostavax administration Z23 Active 987204201 Problem Morbid obesity due to excess calories E66.01 Active 265521163 Problem Other infective otitis externa of left ear H60.392 Active 60863843 Problem Contusion of right foot, initial encounter S90.31XA Active 47755846 Problem DM neuro manif type II E11.49 Active 00349761 Problem High risk medication use Z79.899 Active 938982933867831 Problem Hyperlipidemia, unspecified hyperlipidemia type E78.5 Active 92401194 Problem Breast cancer screening Z12.31 Active 267826743 Problem Personal history of nicotine dependence Z87.891 Active 62326306 Problem Medicare annual wellness visit, initial Z00.00 Active 983837582 Problem Strep throat J02.0 Active 33077990 Problem Other microscopic hematuria R31.29 Active 000694887 Problem Other hammer toe(s) (acquired), left foot M20.42 Active 79914431 Problem Mild persistent asthma without complication J45.30 Active 431175214 Problem Essential hypertension I10 Active 04286809 Problem Pain in right ankle and joints of right foot M25.571 Active 193453630 Problem Pain in left ankle and joints of left foot M25.572 Active 058136723 Problem BMI 40.0-44.9, adult Z68.41 Active 495032656 Problem Other chronic pain G89.29 Active 32931576 Problem Gynecologic exam normal Z01.419 Active 440670439 Problem Breast cancer screening Z12.39 Active 379227537 Problem Other hammer toe(s) (acquired), right foot M20.41 Active 008921333 Problem Osteopenia M85.80 Active 146727022 Problem Anxiety associated with depression F41.8 Active 561436675 Problem Type 2 diabetes mellitus with diabetic neuropathy, without long-term current use of insulin E11.40 Active 64706220 Problem Creatinine elevation R79.89 Active 579723710 Problem Lobar pneumonia J18.1 Active 302700247 ALLERGIES No Information ENCOUNTERS Encounter Location Date Diagnosis [place] [id number] [place] [address] Aug, [place] [address] [address] Aug, [facility] [id number] [place] [id number] Jul, Strep throat J02.0 ; Other microscopic hematuria R31.29 and BMI 40.0-44.9, adult Z68.41 [facility] [address] [id number], [place] [id number] Jul, [facility] [address] [id number], [place] [id number] Jun, [facility] [address] [id number][place] [address] Jun, [facility] [address] [id number], [place] [address] Jun, 2018 Type 2 diabetes mellitus without complications E11.9 ; BMI 40.0- 44.9, adult Z68.41 ; Pain in right ankle and joints of right foot M25.571 ; Pain in left ankle and joints of left foot M25.572 and Other chronic pain G89.29 [place] [id number] [place] [address]886- 9341 May, Onychomycosis B35.1 ; Onychocryptosis L60.0 and DM neuro manif type II E11.40 [facility] [address] [id number], [place] [address] May, [facility] [address] [id number], [place] [id number] May, [facility] [address] [place] [address] AVE [id number], [place] [id number] Apr, Medicare annual wellness visit, initial Z00.00 ; Personal history of nicotine dependence Z87.891 ; Breast cancer screening Z12.31 and BMI 40.0- 44.9, adult Z68.41 [facility] [address] [id number][place] [address] Apr, Anxiety disorder, unspecified F41.9 [facility] [address] [id number], [place] [id number] Feb, [facility] [address] [id number], [place] [address] Feb, Onychomycosis B35.1 and DM neuro manif type II E11.40 [facility] [address] [place] [address] AVE [id number], [place] 040429190 Feb, Type 2 diabetes mellitus without complications E11.9 and Encounter for immunization Z23 [facility] [address] [facility] [place] [address] AVE [id number], [place] [address] Jan, Anxiety disorder, unspecified F41.9 [facility] [address] [place], [place] [address] [id number], [place] [address]337703 Dec, [facility] [address]00565[address] [address] Nov, Right foot sprain, initial encounter S93.601A ; Onychomycosis B35.1 and DM neuro manif type II E11.49 [facility] [address] [place] [address] AVE [id number], [place] [address] Nov, Type 2 diabetes mellitus without complications E11.9 [facility] [address] [id number], [place] 557[address]3894 Nov, [facility] [address] [id number], [place] 214441230 Nov, Type 2 diabetes mellitus without complications E11.9 [facility] [address] [id number], [place] [address]000175 Nov, [facility] [address] [facility] [address] [id number], [place] [id number] Nov, [facility] [address] [id number], [place] [address] Nov, Type 2 diabetes mellitus without complications E11.9 ; Contusion of right foot, initial encounter S90.31XA and High risk medication use Z79.899 [facility] [address] [id number], [place] 323[address]8610 Oct, High risk medication use Z79.899 [facility] [id number], [place] [id number] Oct, Anxiety disorder, unspecified F41.9 [facility] [address] [id number], [place] [address]289 September, Type 2 diabetes mellitus with diabetic neuropathy, without long- term current use of insulin E11.40 [facility] [address] [facility] [id number], [place] 26747461- [address] Aug, Onychomycosis B35.1 ; DM neuro manif type II E11.40 and Other hammer toe(s) (acquired), right foot M20.41 [facility] [address] [facility] [address] [id number], [place] [address]457[address] Aug, Type 2 diabetes mellitus without complications E11.9 ; Morbid obesity due to excess calories E66.01 and Encounter for immunization Z23 [facility] [address] [place] [address] AVE [id number], [place] 299239585 Aug, [facility] [address] [id number], [place] [address]43[address] Aug, Anxiety associated with depression F41.8 [facility] [address] [id number], [place] 73[address] Jul, Anxiety disorder, unspecified F41.9 [facility] [address] [id number], [place] 131106094 Jun, Anxiety associated with depression F41.8 [facility] [address] [id number], [place] 142902488 Jun, Lobar pneumonia J18.1 [facility] [facility] [address] [id number], [place] 134984796 Jun, Pneumonia of left lower lobe due to infectious organism J18.1 [facility] [address] [id number], [place] [address] Jun, [facility] [address] [place] [address] A[address] [id number], [place] 28[address] Jun, [facility] [address] [facility] [id number], [place] 65181946- [address] May, Onychomycosis B35.1 ; Other hammer toe(s) (acquired), right foot M20.41 ; Other hammer toe(s) (acquired), left foot M20.42 and DM neuro manif type II E11.40 [facility] [address] [id number], [place] [id number] May, [facility] [address] [id number], [place] 123556752 May, [facility] [address] [id number], [place] 465587033 May, [facility] [address] [id number], [place] 34840[address]40 May, [facility] [address] [id number], [place] 595946457 May, Gynecologic exam normal Z01.419 ; Breast cancer screening Z12.39 and Creatinine elevation R79.89 [facility] [address] [id number], [place] [id number] Apr, [facility] [address] [id number], [place] [id number] Apr, Creatinine elevation R79.89 [facility] [id number] [place] [address] [id number] Apr, DM neuro manif type II E11.40 and Osteopenia M85.80 [facility] [id number] [place] [address]10- 3296 Feb, Onychomycosis B35.1 and DM neuro manif type II E11.49 [facility] [address] [place] [address] AVE [id number], [place] 699472549 Feb, [facility] [address] [place] [address] [id number] [place] [address] [id number] Jan, Mild persistent asthma without complication J45.30 ; Anxiety disorder, unspecified F41.9 and Essential hypertension I10 [facility] [address] [address]- [address] Jan, Anxiety disorder, unspecified F41.9 and Depressive disorder , not elsewhere classified F32.9 [facility] [id number] [place] [address] 88248- 5113 Dec, Anxiety disorder, unspecified F41.9 and Depressive disorder , not elsewhere classified F32.9 [facility] [id number] [place] [address] -[address]19 Dec, Left elbow pain M25.522 [facility] [address] [address]- 9804 Dec, Anxiety disorder, unspecified F41.9 and Depressive disorder , not elsewhere classified F32.9 [facility] [id number] [place] [address] 89787- 0498 Nov, Anxiety disorder, unspecified F41.9 and Depressive disorder , not elsewhere classified F32.9 [place] [address], [place] [address]- [address] Nov, Anxiety disorder, unspecified F41.9 and Depressive disorder , not elsewhere classified F32.[address] [id number], [place] [id number] Oct, Diabetes mellitus, controlled E11.9 ; Hyperlipidemia, unspecified hyperlipidemia type E78.5 ; Essential hypertension I10 and Mild persistent asthma without complication J45.30 [place] [id number] [place] [address] 29174- 5302 Oct, Anxiety disorder, unspecified F41.9 and Depressive disorder , not elsewhere classified F32.9 [place] [address] [place] [address] 51890- 6696 September, Anxiety disorder, unspecified F41.9 and Depressive disorder , not elsewhere classified F32.9 [place] [address], [place] [address]- [address] Aug, Onychomycosis B35.1 and DM neuro manif type II E11.[address] [id number], [place] 614879246 Aug, [place] [address], [place] [address]- [address] Aug, Anxiety disorder, unspecified F41.9 and Depressive disorder , not elsewhere classified F32.[address] [id number], [place] [id number] Jul, Type 2 diabetes mellitus without complications E11.9 ; Encounter for Zostavax administration Z23 ; Morbid obesity due to excess calories E66.01 and Other infective otitis externa of left ear H60.[address] [id number], [place] 111581608 Jul, [place] [address] [place] [address] 87516- 1575 Jul, [facility] [address] [facility] [id number], [place] [address]- 5831 Jul, [facility] [address] [id number], [place] [id number] Jun, [facility] [address] [facility] [id number], [place] [address]- 8371 Jun, Anxiety disorder, unspecified F41.9 and Depressive disorder , not elsewhere classified F32.9 [facility] [address] [id number], [place] [id number] Jun, Abscess, ear canal H60.00 [facility] [address] [id number], [place] 840110198 Jun, Abscess, ear canal H60.00 [facility] [address] [id number], [place] [id number] Jun, [facility] [address] [facility] [id number], [place] 510734- [address] May, Anxiety disorder, unspecified F41.9 and Depressive disorder , not elsewhere classified F32.9 [facility] [address] [id number], [place] [id number] Apr, Diabetes mellitus, controlled E11.9 and Breast cancer screening Z12.39 [facility] [address] [id number], [place] 665976035 Apr, Diabetes mellitus, controlled E11.9 ; Breast cancer screening Z12.39 and Morbid obesity due to excess calories E66.01 [facility] [address] [facility] [id number], [place] [address]- 5552 Apr, Anxiety disorder, unspecified F41.9 and Depressive disorder , not elsewhere classified F32.9 [facility] [address] [id number], [place] [id number] Mar, [facility] [address] [facility] [id number], [place] [address]- 2974 Mar, Encounter for immunization Z23 [facility] [address]65100[place], [place] [address]- 6876 Mar, Anxiety disorder, unspecified F41.9 and Depressive disorder , not elsewhere classified F32.9 [place] [address], [place] [address]- 365[address] Feb, Foot ulcer, right L97.519 and DM neuro manif type II E11.40 [place] [address], [place] [address]- 4[address] Jan, Anxiety disorder, unspecified 300.00 and Depressive disorder , not elsewhere classified [address]00565100[place], [place] [id number] Jan, [address] [place] [address] 47665- 6724 Jan, Cellulitis of right foot 682.7 ; Onychomycosis 110.1 ; Neuropathy 355.9 and Foot ulcer 707.15 [address]65100[place], [place] [address]- 9068 Jan, Anxiety disorder, unspecified 300.00 and Depressive disorder , not elsewhere classified [address] [id number], [place] [id number] Jan, Anxiety disorder, unspecified 300.00 ; Shortness of breath 786.05 and Coronary atherosclerosis of unspecified type of vessel, burns paiute or graft 414.00 [place] [address] [id number], [place] [address]- 2368 Dec, Anxiety disorder, unspecified 300.00 and Depressive disorder , not elsewhere classified [id number] [place] [address] 59529- 8332 Dec, Anxiety disorder, unspecified 300.00 and Depressive disorder , not elsewhere classified 311 [facility] [address] [id number], [place] [id number] Nov, [place] [address] [id number], [place] 166333- 3676 Nov, Anxiety disorder, unspecified 300.00 and Depressive disorder , not elsewhere classified [address] [id number], [place] [id number] Nov, Shortness of breath 786.05 and Morbid obesity 278.01 [place] [address], [place] [address]- 6783 Nov, Anxiety disorder, unspecified 300.00 and Depressive disorder , not elsewhere classified [address] [id number], [place] [address]23881978 Oct, Asthma, moderate persistent 493.90 [place] [address] [id number], [place] 61704141- 4063 Oct, Anxiety disorder, unspecified 300.00 and Depressive disorder , not elsewhere classified [address] [place] [address] [address], [place] [address]- 7280 September, Hammertoe 735.4 ; Onychomycosis 110.1 and Type I diabetes mellitus with neurological manifestations 250.[address] [id number], [place] [id number] September, [place] [address] [id number], [place] [address]- 6342 September, Anxiety disorder, unspecified 300.00 and Depressive disorder , not elsewhere classified [address] [id number], [place] 230228101 September, Diabetes type 2, controlled 250.00 ; Asthma, mild persistent 493.90 and Dermatitis, contact 692.[address] [id number], [place] [id number] September, [facility] [address] [facility] [id number], [place] 970276- 1815 September, Anxiety state, unspecified 300.00 and Depressive disorder, not elsewhere classified 311 [facility] [address] [id number] [place] [address]- 6543 14 Aug, 2014 [facility] [place] [facility] [address] [id number] [place] [address]- 7134 13 Aug, 2014 [facility] [place] [facility] [address] [id number] [place] [address]- 5536 30 Jul, 2014 [facility] [place] [facility] [address] [id number] [place] [address]- 2513 30 Jul, 2014 [facility] [place] [facility] [address] [id number] [place] [address]- 0761 Jul, [facility] [place] [facility] [address] [id number] [place] [address]- 2029 Jul, [facility] [place] [facility] [address] [facility] [id number] [place] [address]- 1623 Jul, [facility] [place] [facility] [address] [id number] [place] [address]- 4220 Jul, [facility] [place] [facility] [address] [id number] [place] [address]- 4078 Jul, [facility] [place] [facility] [address] [id number] [place] [address]- 1114 Jul, [facility] [place] [facility] [address] [facility] [id number] [place] [address]- 8541 Jun, [facility] [place] [facility] [address] [id number] [place] [address]- 4078 Jun, 2014 [facility] [place] [facility] [address] [id number] [place] [address]- 0580 Jun, [facility] [place] [facility] [address] [id number] [place] [address]- 9556 Jun, [facility] [place] [facility] [address] [id number] [place] [address]- 1806 Jun, [facility] [place] [facility] [address] [id number] [place] [address]- 3457 Jun, 2014 [facility] [place] [facility] [address] [id number] [place] [address]- 9775 Jun, 2014 [facility] [place] [facility] [address] [id number] [place] [address]- 0436 Jun, 2014 [facility] [place] [facility] [address] [facility] [id number] [place] [address]- 5136 Jun, 2014 [facility] [place] [facility] [address] [id number] [place] [address]- 1972 Jun, 2014 [facility] [place] [facility] [address] [id number] [place] [address]- 5968 Jun, 2014 [facility] [place] [facility] [address] [facility] [id number] [place] [address]- 5352 Jun, 2014 [facility] [place] [facility] [address] [facility] [id number] [place] [address]- 8709 Jun, [facility] [place] [facility] [address] [facility] [id number] [place] [address]- 2300 Jun, [facility] [place] [facility] [address] [facility] [id number] [place] [address]- 7909 May, [facility] [place] [facility] [address] [facility] [id number] [place] [address]- 8460 May, [facility] [place] [facility] [address] [facility] [id number] [place] [address]- 5122 May, [facility] [place] [facility] [address] [facility] [id number] [place] [address]- 5344 May, [facility] [place] [facility] [address] [facility] [id number] [place] [address]- 1605 May, [facility] [place] [facility] [address] [facility] [id number] [place] [address]- 8452 May, [facility] [place] [facility] [address] [facility] [id number] [place] [address]- 3960 May, [facility] [place] [facility] [address] [id number] [place] [address]- 3691 May, [facility] [place] [facility] [address] [id number] [place] [address]- 8380 Apr, [facility] [place] [facility] [address] [id number] [place] [address]- 5826 Apr, [facility] [place] [facility] [address] [id number] [place] [address]- 7656 Apr, [facility] [place] [facility] [address] [id number] [place] [address]- 4413 Apr, [facility] [place] [facility] [address] [id number] [place] [address]- 2707 Apr, [facility] [place] [facility] [address] [id number] [place] [address]- 5642 Apr, [facility] [place] [facility] [address] [id number] [place] [address]- 6508 Apr, [facility] [place] [facility] [address] [id number] [place] [address]- 3502 Apr, [facility] [place] [facility] [address] [id number] [place] [address]- 6214 Apr, [facility] [place] [facility] [address] [id number] [place] [address]- 4461 10 Apr, 2014 [facility] [place] [facility] [address] [id number] [place] [address]- 3496 Apr, [facility] [place] [facility] [address] [id number] [place] [address]- 6320 Apr, [facility] [place] [facility] [address] [id number] [place] [address]- 7235 Mar, [facility] [place] [facility] [address] [id number] [place] [address]- 9968 Mar, [facility] [place] [facility] [address] [id number] [place] [address]- 8817 Mar, [facility] [place] [facility] [address] [id number] [place] [address]- 3833 Mar, [facility] [place] [facility] [address] [id number] [place] [address]- 4347 Mar, [facility] [place] [facility] [address] [id number] [place] [address]- 1946 Mar, [facility] [place] [facility] [address] [id number] [place] [address]- 5779 Mar, [facility] [place] [facility] [address] [id number] [place] [address]- 1375 Mar, [facility] [place] [facility] [address] [id number] [place] [address]- 2271 Feb, [facility] [place] [facility] [address] [id number] [place] [address]- 9693 Feb, [facility] [place] [facility] [address] [id number], [place] [address]- 7408 Feb, [facility] [place] [facility] [address] [id number] [place] [address] Feb, [facility] [place] [facility] [address] [id number], [place] [address] Feb, [facility] [place] [facility] [address] [id number], [place] [address] Feb, [facility] [place] [facility] [address] [id number], [place] [address] Feb, [facility] [place] [facility] [address] [id number] [place] [address] Feb, [facility] [place] [facility] [address] [id number], [place] [address] Jan, [facility] [place] [facility] [address] [id number] [place] [address] Jan, [facility] [place] [facility] [address] [id number] [place] [address] 17 Jan, 2013 [facility] [place] [facility] [address] [id number] [place] [address] 17 Jan, 2013 [facility] [place] [facility] [address] [id number] [place] [address] 16 Jan, 2013 [facility] [place] [facility] [address] [id number] [place] [address] 16 Jan, 2013 [facility] [place] [facility] [address] [id number] [place] [address] 15 Jan, 2013 [facility] [place] [facility] [address] [id number] [place] [address] 15 Jan, 2013 [facility] [place] [facility] [address] [id number] [place] [address] 15 Jan, 2013 [facility] [place] [facility] [address] [id number] [place] [address] 15 Jan, 2013 [facility] [place] [facility] [address] [id number] [place] [address] 09 Jan, 2013 [facility] [place] [facility] [address] [id number] [place] [address] 09 Jan, 2013 [facility] [place] [facility] [address] [id number] [place] [address] Dec, [facility] [place] [facility] [address] [id number] [place] [address] Dec, [facility] [place] [facility] [address] [id number] [place] [address]- [address] Dec, [facility] [place] [facility] [address] [id number] [place] [address]- 9078 Dec, [facility] [place] [facility] [address] [id number] [place] [address] Nov, [facility] [place] [facility] [address] [id number] [place] [address] Nov, [facility] [place] [facility] [address] [id number] [place] [address] 1993 Nov, [facility] [place] [facility] [address] [id number] [place] [address]- 0680 Nov, [facility] [place] [facility] [address] [id number] [place] [address]- 2410 Oct, [facility] [place] [facility] [address] [id number] [place] [address]- 4467 Oct, [facility] [place] [facility] [address] [id number] [place] [address]- 0988 Oct, [facility] [place] [facility] [address] [id number] [place] [address]- 1620 Oct, [facility] [place] [facility] [address] [id number] [place] [address]- 6914 Oct, [facility] [place] [facility] [address] [id number] [place] [address]- 6649 Oct, [facility] [place] [facility] [address] [id number] [place] [address]- 6826 Oct, [facility] [place] [facility] [address] [id number] [place] [address]- 0279 Oct, [facility] [place] [facility] [address] [id number] [place] [address]- 1138 Oct, [facility] [place] [facility] [address] [id number] [place] [address]- 3026 Oct, [facility] [place] [facility] [address] [id number] [place] [address]- 1513 September, [facility] [place] [facility] [address] [id number] [place] [address]- 4946 September, [facility] [place] [facility] [address] [id number] [place] [address]- 9878 September, [facility] [place] [facility] [address] [id number] [place] [address]- 6267 September, [facility] [place] [facility] [address] [id number] [place] [address]- 5536 September, [facility] [place] [facility] [address] [id number] [place] [address]- 8446 September, [facility] [place] [facility] [address] [id number] [place] [address]- 3944 September, [facility] [place] [facility] [address] [id number] [place] [address]- 9017 September, [facility] [place] [facility] [address] [id number] [place] [address]- 3165 Aug, [facility] [place] [facility] [address] [id number] [place] [address]- 6298 Aug, [facility] [place] [facility] [address] [id number] [place] [address]- 7197 Aug, [facility] [place] [facility] [address] [id number] [place] [address]- 5320 Aug, [facility] [place] [facility] [address] [id number] [place] [address]- 1347 Aug, [facility] [place] [facility] [address] [id number] [place] [address]- 4092 Aug, [facility] [place] [facility] [address] [id number] [place] [address]- 0313 Aug, [facility] [place] [facility] [address] [id number] [place] [address]- 3505 Aug, [facility] [place] [facility] [address] [id number] [place] [address] Aug, [facility] [place] [facility] [address] [id number] [place] [address] Jul, [facility] [place] [facility] [address] [id number] [place] [address] Jul, [facility] [place] [facility] [address] [id number] [place] [address]- 8381 26 Jul, 2013 [facility] [place] [facility] [address] [id number] [place] [address]- 2876 Jul, [facility] [place] [facility] [address] [id number] [place] [address]- 3656 Jul, [facility] [place] [facility] [address] [id number] [place] [address]- 1446 Jul, [facility] [place] [facility] [address] [id number] [place] [address]- 0729 Jul, [facility] [place] [facility] [address] [id number] [place] [address]- 1947 Jul, [facility] [place] [facility] [address] [id number] [place] [address]- 0257 Jul, [facility] [place] [facility] [address] [id number] [place] [address]- 1464 Jul, [facility] [address] [id number] [place] [address]- 9669 Jul, [facility] [place] [facility] [address] [id number] [place] [address]- 9228 17 Jul, 2013 [facility] [place] [facility] [address] [id number] [place] [address]- 1401 17 Jul, 2013 [facility] [place] [facility] [address] [id number] [place] [address]- 6012 Jul, [facility] [place] [facility] [address] [id number] [place] [address]- 8979 Jul, [facility] [place] [facility] [address] [id number] [place] [address]- 5541 Jul, [facility] [place] [facility] [address] [id number] [place] [address]- 6056 Jul, [facility] [place] [facility] [address] [id number] [place] [address]- 3199 Jul, [facility] [place] [facility] [address] [id number] [place] [address]- 0203 Jul, [facility] [place] [facility] [address] [id number] [place] [address]- 2633 Jul, [facility] [place] [facility] [address] [id number] [place] [address]- 1584 Jun, [facility] [place] [facility] [address] [id number] [place] [address]- 9016 Jun, [facility] [place] [facility] [address] [id number] [place] [address]- 8863 Jun, [facility] [place] [facility] [address] [id number] [place] [address]- 9669 Jun, [facility] [place] [facility] [address] [id number] [place] [address]- 0074 Jun, [facility] [place] [facility] [address] [id number] [place] [address]- 8605 Jun, [facility] [place] [facility] [address] [id number] [place] [address]- 9387 Jun, [facility] [place] [facility] [address] [id number] [place] [address]- 6335 Jun, [facility] [place] [facility] [address] [id number] [place] [address]- 2796 Jun, [facility] [place] [facility] [address] [id number] [place] [address]- 4967 Jun, [facility] [place] [facility] [address] [id number] [place] [address]- 6194 Jun, [facility] [place] [facility] [address] [id number] [place] [address]- 6828 Jun, [facility] [place] [facility] [address] [id number] [place] [address]- 6479 May, [facility] [place] [facility] [address] [id number] [place] [address]- 4495 May, [facility] [place] [facility] [address] [id number] [place] [address]- 2718 May, [facility] [place] [facility] [address] [id number] [place] [address]- 1316 May, [facility] [place] [facility] [address] [id number] [place] [address]- 4648 May, [facility] [place] [facility] [address] [id number] [place] [address]- 2657 May, [facility] [place] [facility] [address] [id number] [place] [address]- 8519 May, [facility] [place] [facility] [address] [id number] [place] [address]- 8059 May, [facility] [place] [facility] [address] [id number] [place] [address]- 0585 May, [facility] [place] [facility] [address] [id number] [place] [address]- 7102 May, [facility] [place] [facility] [address] [id number] [place] [address]- 7012 May, [facility] [place] [facility] [address] [id number] [place] [address]- 0066 May, [facility] [place] [facility] [address] [id number] [place] [address]- 5381 May, [facility] [place] [facility] [address] [id number] [place] [address]- 7354 May, [facility] [place] [facility] [address] [id number] [place] [address]- 8258 Apr, [facility] [place] [facility] [address] [id number] [place] [address]- 0204 Apr, [facility] [place] [facility] [address] [id number] [place] [address]- 3481 17 Apr, 2013 [facility] [address] [id number] [place] [address] 17 Apr, 2013 [facility] [place] [facility] [address] [id number] [place] [address]- 6676 16 Apr, 2013 [facility] [place] [facility] [address] [facility] [id number] [place] [address]- 4656 16 Apr, 2013 [facility] [place] [facility] [address] [id number] [place]24 12 Apr, 2013 [facility] [place] [facility] [address] [id number] [place] [address]- 1627 Apr, [facility] [place] [facility] [address] [id number] [place] [address]- 2128 Apr, [facility] [place] [facility] [address] [id number] [place] [address]- 2338 Apr, [facility] [place] [facility] [address] [id number], [place] [address]- 8709 Apr, [facility] [place] [facility] [address] [id number], [place] [address]- 6864 Apr, [facility] [place] [facility] [address] [id number], [place] [address]- 5652 Mar, [facility] [place] [facility] [address] [id number], [place] [address]- 2747 Mar, [facility] [place] [facility] [address] [id number], [place] [address]- 3096 Mar, [facility] [place] [facility] [address] [id number], [place] [address]- 0405 Mar, [facility] [place] [facility] [address] [id number], [place] [address]- 1155 Mar, [facility] [place] [facility] [address] [id number] 0919 Mar, [facility] [place] [facility] [address] [id number] 3461 Mar, [facility] [address] [id number] [place] [address]20 Mar, [facility] [place] [facility] [address] [id number][place] 3563 Mar, [facility] [address] [id number], [place] [address]- 9174 Mar, [facility] [place] [facility] [address] [id number] [place] [address]- 9306 Mar, [facility] [address] [id number] [place]20 Mar, [facility] [place] [facility] [address] [id number] [place] [address]- 5006 Feb, [facility] [address] [id number][place] [address]- 0546 Feb, [facility] [address] [id number][place] [id number] Feb, [facility] [address] [id number], [place] [address]- 0354 Feb, [facility] [place] [facility] [address] [id number], [place] [address]- 1993 Feb, [facility] [place] [facility] [address] [id number], [place] [address]- 7891 Feb, [facility] [place] [facility] [address] [id number], [place] [address]- 2856 Feb, [facility] [place] [facility] [address] [id number][place]- 4403 Feb, [facility] [place] [facility] [address] [id number][place] 3749 Feb, [facility] [place] [facility] [address] [id number], [place] 4158 Feb, [facility] [place] [facility] [address] [facility] [id number], [place] [address]- 0944 Feb, [facility] [place] [facility] [address] [facility] [id number], [place] [address]- 1257 Feb, [facility] [place] [facility] [address] [facility] [id number][place] 9630 Feb, [facility] [place] [facility] [address] [facility] [id number][place]29- 9028 Jan, [facility] [address] [id number] [place] [id number] Jan, [facility] [address] [id number] [place] [id number] Jan, [facility] [address] [id number] [place] [id number] Jan, [facility] [address] [id number] [place] [id number] Jan, [facility] [address] [facility] [id number][place] [address]- 5829 Jan, [facility] [address] [id number] [place] [id number] Jan, [facility] [address] [facility] [id number], [place] [address]- 8968 Dec, [facility] [place] [facility] [address] [facility] [id number], [place] [address]- 0232 Dec, [facility] [place] [facility] [address] [facility] [id number][place] [address]64717- 2520 Dec, [facility] [address] [id number] [place] [id number] Dec, [facility] [address] [id number] [place] [id number] Dec, [facility] [address] [id number] [place] [id number] Dec, [facility] [place] [facility] [address] [facility] [id number], [place] [address]- 7861 Dec, [facility] [place] [facility] [address] [id number] [place] [address]- 2546 Dec, [facility] [address] [facility] [id number] [place] [id number] Dec, [facility] [place] [facility] [address] [facility] [id number] [place] [address]- 2546 Dec, [facility] [place] [facility] [address] [facility] [id number] [place] [address]- 3789 Nov, [facility] [place] [facility] [address] [facility] [id number] [place] [address]- 0028 Nov, [facility] [place] [facility] [address] [facility] [id number] [place] [address]- 3637 Nov, [facility] [address] [facility] [id number] [place] [id number] Nov, [facility] [address] [id number] [place] [id number] Oct, [facility] [address] [facility] [id number] [place] [id number] Oct, [facility] [place] [facility] [address] [facility] [id number], [place] [address]- 0842 Oct, [facility] [place] [facility] [address] [facility] [id number], [place] [address]- 9296 Oct, [facility] [place] [facility] [address] [facility] [id number], [place] [address]- 2076 Oct, [facility] [address] [facility] [id number][place] [id number] Oct, [facility] [place] [facility] [address] [facility] [id number] [place] [address]- 254 Oct, [facility] [address] [id number][place] [id number] Oct, [facility] [address] [facility] [id number][place] [id number] September, [facility] [place] [facility] [address] [facility] [id number] [place] [address]- 6049 September, [facility] [address] [id number] [place] [id number] September, [facility] [address] [id number] [place] [address]- 2546 September, [facility] [address] [id number] [place] [address]- 8906 September, [facility] [address] [id number] [place] [address]- 9586 September, [facility] [address] [id number] [place] [id number] September, [facility] [address] [id number] [place] [address]- 4216 September, [facility] [address] [facility] [id number] [place] [address]- 3366 September, [facility] [address] [facility] [id number] [place] [address]- 4073 Aug, [facility] [address] [id number] [place] [id number] Aug, [facility] [address] [id number] [place] [id number] Aug, [facility] [address] [id number] [place] [address]- 5156 Aug, [facility] [place] [facility] [address] [id number] [place] [address]- 7536 Aug, [facility] [address] [id number] [place] [id number] Aug, 2012 [facility] [address] [id number] [place] [id number] Aug, [facility] [place] [facility] [address] [id number] [place] [address]- 2996 Aug, [facility] [place] [facility] [address] [id number] [place] [address]- 8956 Aug, [facility] [place] [facility] [address] [facility] [id number], [place] [address]- 8166 Jul, [facility] [address] [facility] [id number][place] [id number] Jul, [facility] [address] [facility] [id number], [place] [address]- 0312 Jul, [facility] [address] [facility] [id number], [place] [address]- 2836 Jul, [facility] [place] [facility] [address] [facility] [id number], [place] [address] 2542 Jul, [facility] [address] [facility] [id number], [place] [address]- 2736 Jul, [facility] [address] [facility] [id number], [place] [address]- 2546 Jul, [facility] [id number], [place] [address]- 8142 Jul, [facility] [address] [id number][place] [id number] Jul, [facility] [address] [facility] [id number][place] [id number] Jun, [facility] [address] [id number], [place] [address] 2546 Jun, [facility] [address] [id number][place] [id number] Jun, [facility] [place] [facility] [address] [facility] [id number], [place] [address] 2546 Jun, [facility] [place] [facility] [address] [facility] [id number], [place] [address]- 2546 May, [facility] [address] [facility] [id number], [place] [address]- 5146 May, [facility] [address] [facility] [id number][place] [id number] May, [facility] [address] [id number][place] [id number] May, [facility] [place] [facility] [address] [id number] [place] [address]- 0490 May, [facility] [address] [id number] [place] [id number] May, [facility] [address] [id number] [place] [address]- 3756 May, [facility] [place] [facility] [address] [id number] [place] [address]- 9956 May, [facility] [address] [id number] [place] [id number] Apr, [facility] [address] [id number] [id number] Apr, [facility] [address] [facility] [id number] [place] 8662 Apr, [facility] [place] [facility] [address] [facility] [id number], [place] [address]- 9286 Apr, [facility] [place] [facility] [address] [id number], [place] [address]- 0770 Apr, [facility] [place] [facility] [address] [id number], [place] [address]- 2906 Apr, [facility] [address] [facility] [id number], [place] [id number] Apr, [facility] [place] [facility] [address] [facility] [id number], [place] [address]- 0246 Apr, [facility] [place] [facility] [address] [facility] [id number], [place] [address]- 2986 Apr, [facility] [place] [facility] [address] [id number], [place] [address]- 1752 Apr, [facility] [address] [facility] [id number] [place] [id number] Apr, [facility] [place] [facility] [address] [facility] [id number], [place] [address]- 3658 Apr, [facility] [place] [facility] [address] [id number], [place] [address]- 0201 Apr, [facility] [place] [facility] [address] [id number] [place] [address]- 8896 Apr, [facility] [place] [facility] [address] [id number] [place] [address]- 9575 Mar, [facility] [place] [facility] [address] [id number] [place] [address]- 3822 Mar, [facility] [place] [facility] [address] [id number], [place] [address]- 7366 Mar, [facility] [place] [facility] [address] [id number] [place] [address] Mar, [facility] [address] [facility] [id number][place] [id number] Mar, [facility] [place] [facility] [address] [facility] [id number], [place] [address] Mar, [facility] [address] [facility] [id number][place] [id number] Mar, [facility] [place] [facility] [address] [id number], [place] [address] Mar, [facility] [address] [facility] [id number][place] [id number] Feb, [facility] [place] [facility] [address] [id number], [place] [address] Feb, [facility] [place] [facility] [address] [facility] [id number], [place] [address] Feb, [facility] [place] [facility] [address] [id number], [place] [address] Feb, [facility] [place] [facility] [address] [facility] [id number], [place] [address] Jan, [facility] [address] [facility] [id number][place] [id number] Jan, [facility] [place] [facility] [address] [facility] [id number] [place] [address] 13 Jan, 2012 [facility] [place] [facility] [address] [facility] [id number] [place] [address] Jan, [facility] [place] [facility] [address] [facility] [id number] [place] [address] 05 Jan, 2012 [facility] [address] [facility] [id number] [place] [id number] Jan, [facility] [place] [facility] [address] [facility] [id number] [place] [address] Dec, [facility] [address] [facility] [id number] [place] [id number] Dec, [facility] [place] [facility] [address] [facility] [id number], [place] [address] Dec, [facility] [place] [facility] [address] [facility] [id number], [place] [address] Dec, [facility] [place] [facility] [address] [facility] [id number], [place] [address] Nov, [facility] [place] [facility] [address] [facility] [id number], [place] [address] Nov, [facility] [place] [facility] [address] [facility] [id number], [place] [address] Nov, [facility] [address] [facility] [id number][place] [id number] Nov, [facility] [place] [facility] [address] [facility] [id number], [place] [address] Nov, [facility] [address] [facility] [id number][place] [id number] Nov, [facility] [place] [facility] [address] [facility] [id number] [place] [address] Nov, [facility] [place] [facility] [address] [facility] [id number], [place] [address] Nov, [facility] [place] [facility] [address] [facility] [id number], [place] [address] Nov, [facility] [place] [facility] [address] [id number], [place] [address] Oct, [facility] [place] [facility] [address] [id number], [place] [address] Oct, [facility] [address] [id number] [place] [id number] Oct, [facility] [address] [id number] [place] [id number] Oct, [facility] [address] [id number] [place] [id number] Oct, [facility] [place] [facility] [address] [id number] [place] [address] Oct, [facility] [place] [facility] [address] [facility] [id number], [place] [address] Oct, [facility] [place] [facility] [address] [facility] [id number], [place] [address] Oct, [facility] [place] [facility] [address] [facility] [id number], [place] [address] September, [facility] [place] [facility] [address] [facility] [id number], [place] [address] September, [facility] [place] [facility] [address] [facility] [id number], [place] [address] September, [facility] [place] [facility] [address] [facility] [id number], [place] [address] Aug, [facility] [place] [facility] [address] [id number], [place] [address] Aug, [facility] [place] [facility] [address] [facility] [id number] [place] [id number] Aug, [facility] [place] [facility] [address] [facility] [id number], [place] [address] 18 Aug, 2011 [facility] [place] [facility] [address] [facility] [id number], [place] [id number] Aug, [facility] [address] [facility] [id number][place] [id number] Jul, [facility] [address] [id number] [place] [address] Jul, [facility] [address] [id number] [place] [address] Jun, [facility] [address] [id number] [place] [address] Jun, [facility] [address] [id number] [place] [address] Jun, [facility] [address] [id number] [place] [address] Jun, [facility] [address] [id number] [place] [address]- 8668 Jun, [facility] [address] [id number], [place] [address] May, [facility] [address] [id number] [place] [address] May, [facility] [address] [id number] [address] May, [facility] [address] [id number], [place] [address] May, [facility] [place] [facility] [address] [id number], [place] [address] 16 May, 2011 [facility] [place] [facility] [address] [id number] [place] [address] May, [facility] [place] [facility] [address] [facility] [id number], [place] [address] May, [facility] [place] [facility] [address] [id number] [place] [address]- [address] May, [facility] [address] [id number] [place] [address]- 3851 27 Apr, 2011 [facility] [place] [facility] [address] [id number] [place] [address] 20 Apr, 2011 [facility] [place] [facility] [address] [id number] [place] [address] 16 Apr, 2011 [facility] [place] [facility] [address] [id number] [place] [address] 15 Apr, 2011 [facility] [place] [facility] [address] [id number] [place] [address] 13 Apr, 2011 [facility] [place] [facility] [address] [id number] [place] [address] 05 Apr, 2011 [facility] [place] [facility] [address] [id number] [place] [address] 22 Mar, 2011 [facility] [place] [facility] [address] [id number] [place] [address] Mar, [facility] [place] [facility] [address] [id number] [place] [address] 15 Mar, 2011 [facility] [place] [facility] [address] [id number] [place] [address] 14 Mar, 2011 [facility] [place] [facility] [address] [facility] [id number] [place] [address] 14 Mar, 2011 [facility] [place] [facility] [address] [id number] [place] [address] 07 Mar, 2011 [facility] [place] [facility] [address] [id number] [place] [address] 04 Mar, 2011 [facility] [place] [facility] [address] [id number] [place] [address] Mar, [facility] [place] [facility] [address] [id number] [place] [address] 14 Feb, 2011 [facility] [place] [facility] [address] [id number] [place] [address] 16 Jun, 2010 [facility] [place] [facility] [address] [id number] [place] [address] 19 May, 2010 [facility] [address] [id number] [place] [address] 13 May, 2010 [facility] [address] [id number] [place] [address] 13 Apr, 2010 [facility] [place] [facility] [address] [id number] [place] [address] Apr, [facility] [address] [id number] [place] [address] Apr, [facility] [place] [facility] [address] [id number] [place] [address] Mar, [facility] [address] [id number] [place] [address] 15 Mar, 2010 [facility] [address] [id number] [place] [address] Mar, [facility] [address] [id number] [place] [address] Mar, [facility] [place] [facility] [address] [id number] [place] [address] Mar, [facility] [place] [facility] [address] [id number] [place] [address] Feb, [facility] [place] [facility] [address] [id number], [place] [address] Feb, [facility] [place] [facility] [address] [id number] [place] [address] Oct, [facility] [place] [facility] [address] [id number], [place] [address] September, [facility] [place] [facility] [address] [id number], [place] [address] Apr, [facility] [place] [facility] [address] [id number], [place] [address] Apr, [facility] [address] [address] Mar, [facility] [address] [address] Mar, [facility] [id number] [address] Mar, [facility] [id number] [place] [address] Mar, [facility] [id number] [place] [address] Mar, [facility] [id number] [place] [address] Feb, [facility] [id number] [place] [address] Feb, [facility] [address] [address] Jan, [facility] [address] [address] Oct, IMMUNIZATIONS No Known Immunizations SOCIAL HISTORY Never Assessed REASON FOR VISIT refill PLAN OF CARE VITAL SIGNS MEDICATIONS Medication Instructions Dosage Frequency Start Date End Date Duration Status Trulicity 0.75 MG/0.5ML Subcutaneous once weekly 0.5 ml Aug, Nov, 90 days Active RESULTS No Results PROCEDURES [...]
--- OUTSIDE RECORDS SUMMARY | 2017-11-22 09:52 | XMS REPORT ---
Author Author JEN LU Organization [employer] Address Unknown Phone Unavailable Care Team Providers Care Customs Opener Verifier Packer Name Role Phone JEN LU CP Unavailable [...] Coronary atherosclerosis of unspecified type of vessel, [place] or graft 414.00 Active Problem Other general [...] patient &/family, 45 minutes, established patient CPT-4 42023 Mar 19, 2015 [facility] VISIT MENTAL HEALTH ESTAB PT CPT-4 G0470 Mar 19, 2015 Results No Known Results Summary Purpose [employer] Submission
--- OUTSIDE RECORDS SUMMARY | 2017-11-22 09:52 | XMS REPORT ---
Author Author ELZA LARKIN Organization [employer] Address Unknown Phone Unavailable Care Team Providers Care Clutch Inspector Name Role Phone ELZA LARKIN CP Unavailable Allergies No Known Allergies Problems Problem Type Condition ICD-9 Code Onset Dates Condition Status Problem Obstructive sleep apnea (adult) (pediatric) 327.23 Active Problem Nausea alone 787.02 Active Problem Unspecified sleep disturbance 780.50 Active Problem Unspecified transient cerebral ischemia 435.9 Active Problem Coronary atherosclerosis of unspecified type of vessel, [place] or graft 414.00 Active Problem Anxiety disorder, unspecified 300.00 Active Problem Unspecified gastritis and gastroduodenitis without mention of hemorrhage 535.50 Active Problem Morbid obesity 278.01 Active Problem Other general symptoms 780.99 Active Problem Garner's esophagus 530.85 Active Assessment Foot ulcer 707.15 Active Assessment Cellulitis of right foot 682.7 Active Problem Encounter for long-term (current) use of other medications V58.69 Active Assessment Neuropathy 355.9 Active Problem Other chronic pain 338.29 Active Assessment Onychomycosis 110.1 Active Problem Shortness of breath 786.05 Active Medications Medication Code System Code Instructions Start Date End Date Status Dosage Keflex [facility] [address]-97 500 MG Orally three times daily Jan 16, 2015 Jan 23, 2015 1 capsule Procedures Procedure Coding System Code Date [facility] VISIT ESTABLISHED PATIENT CPT-4 G0467 Jan 16, 2015 Office Visit, Est Pt., Level 3 CPT-4 82403 Jan 16, 2015 DEBRIDE NAIL, 6 OR MORE CPT-4 28937 Jan 16, 2015 Results Name Result Date Reference Range Unit Abnormality Flag DEBRIDE NAIL >6 Summary Purpose [employer] Submission
--- OUTSIDE RECORDS SUMMARY | 2017-11-22 09:54 | XMS REPORT ---
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 Active Problem Garner's esophagus 530.85 Active Problem Unspecified gastritis and gastroduodenitis without mention of hemorrhage 535.50 Active Problem Coronary atherosclerosis of unspecified type of vessel, [place] or graft 414.00 Active Problem Other general symptoms 780.99 Active Problem Encounter for long-term (current) use of other medications V58.69 Active Problem Other chronic pain 338.29 Active Assessment DM 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
--- OUTSIDE RECORDS SUMMARY | 2017-11-22 09:54 | XMS REPORT ---
Author Author KELSIE JENNIFER [facility] Address [address] [place] [address] Care Team Providers Care Tile Erector Name Role Phone JENNIFER IGLESIAS Unavailable PROBLEMS Type Condition ICD9-CM Code MMA42-UX Code Onset Dates Condition Status SNOMED Code Problem Depressive disorder, not elsewhere classified F32.9 Active 58187491 Problem DM neuro manif type II E11.40 Active 80500705 Problem Diabetes mellitus, controlled E11.9 Active 755447488 Problem Anxiety disorder, unspecified F41.9 Active 184318150 Problem Abscess, ear canal H60.00 Active 30447030 Problem Type 2 diabetes mellitus without complications E11.9 Active 253052600 Problem Encounter for Zostavax administration Z23 Active 834267652 Problem Morbid obesity due to excess calories E66.01 Active 493031339 Problem Other infective otitis externa of left ear H60.392 Active 35892407 Problem Contusion of right foot, initial encounter S90.31XA Active 80978388 Problem DM neuro manif type II E11.49 Active 59931569 Problem High risk medication use Z79.899 Active 255523706691915 Problem Hyperlipidemia, unspecified hyperlipidemia type E78.5 Active 59168375 Problem Breast cancer screening Z12.31 Active 559600634 Problem Personal history of nicotine dependence Z87.891 Active 50005017 Problem Medicare annual wellness visit, initial Z00.00 Active 734964672 Problem Strep throat J02.0 Active 07233307 Problem Other microscopic hematuria R31.29 Active 567554483 Problem Other hammer toe(s) (acquired), left foot M20.42 Active 27076861 Problem Mild persistent asthma without complication J45.30 Active 980612938 Problem Essential hypertension I10 Active 01132642 Problem Pain in right ankle and joints of right foot M25.571 Active 290154228 Problem Pain in left ankle and joints of left foot M25.572 Active 187557658 Problem BMI 40.0-44.9, adult Z68.41 Active 770733630 Problem Other chronic pain G89.29 Active 45939644 Problem Gynecologic exam normal Z01.419 Active 295230698 Problem Breast cancer screening Z12.39 Active 061345490 Problem Other hammer toe(s) (acquired), right foot M20.41 Active 017140217 Problem Osteopenia M85.80 Active 269796789 Problem Anxiety associated with depression F41.8 Active 009575660 Problem Type 2 diabetes mellitus with diabetic neuropathy, without long-term current use of insulin E11.40 Active 96229189 Problem Creatinine elevation R79.89 Active 416549378 Problem Lobar pneumonia J18.1 Active 944762020 ALLERGIES No Information ENCOUNTERS Encounter Location Date Diagnosis [place] [id number] [place] [address]23- 6174 Aug, [place] [address] [address] Aug, [facility] [address] [id number] [place] [id number] Jul, Strep throat J02.0 ; Other microscopic hematuria R31.29 and BMI 40.0-44.9, adult Z68.41 [facility] [address] [id number], [place] [id number] Jul, [facility] [address] [id number], [place] [address] Jun, [facility] [address] [id number][place] [address] Jun, [facility] [address] [id number], [place] [address]696277 Jun, 2018 Type 2 diabetes mellitus without complications E11.9 ; BMI 40.0- 44.9, adult Z68.41 ; Pain in right ankle and joints of right foot M25.571 ; Pain in left ankle and joints of left foot M25.572 and Other chronic pain G89.29 [place] [id number] [place] [address] 23162- 5800 May, Onychomycosis B35.1 ; Onychocryptosis L60.0 and DM neuro manif type II E11.40 [facility] [address] [id number], [place] [address] May, [facility] [address] [id number], [place] 200789836 May, [facility] [address] [place] [address] AVE [id number], [place] 478396578 Apr, Medicare annual wellness visit, initial Z00.00 ; Personal history of nicotine dependence Z87.891 ; Breast cancer screening Z12.31 and BMI 40.0- 44.9, adult Z68.41 [facility] [address] [id number][place] [address]77[address] Apr, Anxiety disorder, unspecified F41.[address] [facility] CAMPUSElvie [address] [id number], [place] [address]60288[address] Feb, [facility] [address] [id number], [place] [address] Feb, Onychomycosis B35.1 and DM neuro manif type II E11.40 [facility] [address] [place] [address] AVE [id number], [place] [id number] Feb, Type 2 diabetes mellitus without complications E11.9 and Encounter for immunization Z23 [facility] [address] [employer] [place] [address] AVE [id number], [place] 394514293 Jan, Anxiety disorder, unspecified F41.[address] [facility] [address]S [employer] [place], [place] [address] [id number], [place] [address]4063600 Dec, [facility] [address], [place] 690827[address] Nov, Right foot sprain, initial encounter S93.601A ; Onychomycosis B35.1 and DM neuro manif type II E11.49 [facility] [address]OSS [employer] [place] [address] AVE [id number], [place] 627295758 Nov, Type 2 diabetes mellitus without complications E11.9 [facility] [address] [id number], [place] [id number] Nov, [facility] [address] [id number], [place] 995666388 Nov, Type 2 diabetes mellitus without complications E11.9 [facility] [address] [id number], [place] [id number] Nov, [facility] [address] [id number], [place] [id number] Nov, [facility] [address] [id number], [place] [id number] Nov, Type 2 diabetes mellitus without complications E11.9 ; Contusion of right foot, initial encounter S90.31XA and High risk medication use Z79.899 [facility] [address] [id number], [place] [address]85 Oct, High risk medication use Z79.899 [facility]ALSEMobiscopeROSS[address] [id number], [place] [address] Oct, Anxiety disorder, unspecified F41.9 [facility] [address] [id number], [place] [address]23 September, Type 2 diabetes mellitus with diabetic neuropathy, without long- term current use of insulin E11.40 [facility] [address] [facility] [id number], [place] [address]7788344- [address] Aug, Onychomycosis B35.1 ; DM neuro manif type II E11.40 and Other hammer toe(s) (acquired), right foot M20.41 [facility] [address] [id number], [place] [address] Aug, Type 2 diabetes mellitus without complications E11.9 ; Morbid obesity due to excess calories E66.01 and Encounter for immunization Z23 [facility] [address] [place] [address] AVE [id number], [place] [id number] Aug, [facility] [address] [id number], [place] 112805415 Aug, Anxiety associated with depression F41.8 [facility] [address] [id number], [place] [id number] Jul, Anxiety disorder, unspecified F41.9 [facility] [address] [id number], [place] 810844817 Jun, Anxiety associated with depression F41.8 [facility] [address] [id number], [place] 609756532 Jun, Lobar pneumonia J18.1 [facility] [address] [id number], [place] [id number] Jun, Pneumonia of left lower lobe due to infectious organism J18.1 [facility] [address] [id number], [place] 610373919 Jun, [facility] ROSS [address] [place] [address] AVE [id number], [place] [address] Jun, [facility] [address] [facility] [id number], [place] 40703425- [address] May, Onychomycosis B35.1 ; Other hammer toe(s) (acquired), right foot M20.41 ; Other hammer toe(s) (acquired), left foot M20.42 and DM neuro manif type II E11.40 [facility] [address] [id number], [place] [id number] May, [facility] [address] [id number], [place] [id number] May, [facility] [address] [id number], [place] 159018445 May, [facility] [address] [id number], [place] 047971222 May, [facility] [address] [id number], [place] 939274[address] May, Gynecologic exam normal Z01.419 ; Breast cancer screening Z12.39 and Creatinine elevation R79.89 [facility] [address] [id number], [place] [id number] Apr, [facility] [address] [id number], [place] 595702636 Apr, Creatinine elevation R79.89 [facility] [id number] [place] [address] [id number] Apr, DM neuro manif type II E11.40 and Osteopenia M85.80 [facility] [id number] [place] [address] 23805- 5275 Feb, Onychomycosis B35.1 and DM neuro manif type II E11.49 [facility] [address] [place] [address] AVE [id number], [place] [id number] Feb, [facility] [address] [place] [address] [id number] [place] [address] [id number] Jan, Mild persistent asthma without complication J45.30 ; Anxiety disorder, unspecified F41.9 and Essential hypertension I10 [facility] [address] [address]- [address]42 Jan, Anxiety disorder, unspecified F41.9 and Depressive disorder , not elsewhere classified F32.9 [facility] [id number] [place] [address] 68362- 6529 Dec, Anxiety disorder, unspecified F41.9 and Depressive disorder , not elsewhere classified F32.9 [facility] [id number] [place] [address] 76098 -[address]79 Dec, Left elbow pain M25.522 [facility] [address] [address]- [address]11 Dec, Anxiety disorder, unspecified F41.9 and Depressive disorder , not elsewhere classified F32.9 [facility] [id number] [place] [address] 10420- 9783 Nov, Anxiety disorder, unspecified F41.9 and Depressive disorder , not elsewhere classified F32.9 [place] [address], [place] [address] Nov, Anxiety disorder, unspecified F41.9 and Depressive disorder , not elsewhere classified F32.[address] [id number], [place] [id number] Oct, Diabetes mellitus, controlled E11.9 ; Hyperlipidemia, unspecified hyperlipidemia type E78.5 ; Essential hypertension I10 and Mild persistent asthma without complication J45.30 [place] [id number] [place] [address] 93566- 5379 Oct, Anxiety disorder, unspecified F41.9 and Depressive disorder , not elsewhere classified F32.9 [place] [address] [place] [address] 52858- 4965 September, Anxiety disorder, unspecified F41.9 and Depressive disorder , not elsewhere classified F32.9 [place] [address], [place] [address]- [address] Aug, Onychomycosis B35.1 and DM neuro manif type II E11.[address] [id number], [place] 190486993 Aug, [place] [address], [place] [address]- [address] Aug, Anxiety disorder, unspecified F41.9 and Depressive disorder , not elsewhere classified F32.[address] [id number], [place] 474804511 Jul, Type 2 diabetes mellitus without complications E11.9 ; Encounter for Zostavax administration Z23 ; Morbid obesity due to excess calories E66.01 and Other infective otitis externa of left ear H60.[address] [id number], [place] 197919668 Jul, [place] [address] [place] [address] 82232- 3155 Jul, [facility] [place] [address] [facility] [id number][place] [address]- 4[address] Jul, [facility] [address] [id number], [place] [id number] Jun, [facility] [address] [facility] [id number], [place] [address]- [address] Jun, Anxiety disorder, unspecified F41.9 and Depressive disorder , not elsewhere classified F32.9 [facility] [address] [id number], [place] 436148954 Jun, Abscess, ear canal H60.00 [facility] [address] [id number], [place] 101234045 Jun, Abscess, ear canal H60.00 [facility] [address] [id number], [place] 012456094 Jun, [facility] [address] [facility] [id number], [place] 161788- 9460 May, Anxiety disorder, unspecified F41.9 and Depressive disorder , not elsewhere classified F32.9 [facility] [address] [id number], [place] 085192726 Apr, Diabetes mellitus, controlled E11.9 and Breast cancer screening Z12.39 [facility] [address] [id number], [place] 127431543 Apr, Diabetes mellitus, controlled E11.9 ; Breast cancer screening Z12.39 and Morbid obesity due to excess calories E66.01 [facility] [address] [facility] [id number], [place] [address]- 1760 Apr, Anxiety disorder, unspecified F41.9 and Depressive disorder , not elsewhere classified F32.9 [facility] [address] [id number], [place] [id number] Mar, [facility] [address] [facility] [id number], [place] [address]- 6228 Mar, Encounter for immunization Z23 [facility] [address]100[place], [place] [address]- 8084 Mar, Anxiety disorder, unspecified F41.9 and Depressive disorder , not elsewhere classified F32.9 [place] [address], [place] [address]- 96[address] Feb, Foot ulcer, right L97.519 and DM neuro manif type II E11.40 [place] [address], [place] [address]- 0[address] Jan, Anxiety disorder, unspecified 300.00 and Depressive disorder , not elsewhere classified [address] [place] [address]00565100[place] [address] Jan, [address] [place] [address] 99977- 7378 Jan, Cellulitis of right foot 682.7 ; Onychomycosis 110.1 ; Neuropathy 355.9 and Foot ulcer 707.[address], [place] [address]- 7526 Jan, Anxiety disorder, unspecified 300.00 and Depressive disorder , not elsewhere classified [address] [id number], [place] 403279057 Jan, Anxiety disorder, unspecified 300.00 ; Shortness of breath 786.05 and Coronary atherosclerosis of unspecified type of vessel, match-[employer]-be[employer] or graft 414.00 [place] [address] [id number], [place] [address]- 5238 Dec, Anxiety disorder, unspecified 300.00 and Depressive disorder , not elsewhere classified [id number] [place] [address] 33250- 9038 Dec, Anxiety disorder, unspecified 300.00 and Depressive disorder , not elsewhere classified 311 [facility] [address] [id number], [place] 344366476 Nov, [place] [address] [id number] 090148- 8876 Nov, Anxiety disorder, unspecified 300.00 and Depressive disorder , not elsewhere classified [address] [id number], [place] 893563247 Nov, Shortness of breath 786.05 and Morbid obesity 278.01 [place] [address], [place] [address]- 4766 Nov, Anxiety disorder, unspecified 300.00 and Depressive disorder , not elsewhere classified [address] [id number], [place] 634008185 Oct, Asthma, moderate persistent 493.90 [place] [id number] 27276369- 4816 Oct, Anxiety disorder, unspecified 300.00 and Depressive disorder , not elsewhere classified [address] [place] [address], [place] [address]- 9[address] September, Hammertoe 735.4 ; Onychomycosis 110.1 and Type I diabetes mellitus with neurological manifestations 250.[address] [id number], [place] [id number] September, [place] [address] [id number], [place] [address]- 5231 September, Anxiety disorder, unspecified 300.00 and Depressive disorder , not elsewhere classified [address] [id number], [place] 541486518 September, Diabetes type 2, controlled 250.00 ; Asthma, mild persistent 493.90 and Dermatitis, contact 692.[address] [id number], [place] 715806909 September, [facility] [address] [facility] [id number], [place] 642632- 7840 September, Anxiety state, unspecified 300.00 and Depressive disorder, not elsewhere classified 311 [facility] [id number] [address]- [address] 14 Aug, 2014 [facility] [place] [facility] [address] [id number] [place] [address]- 5704 13 Aug, 2014 [facility] [place] [facility] [address] [id number] [place] [address]- 6266 30 Jul, 2014 [facility] [place] [facility] [address] [id number] [place] [address]- 5299 30 Jul, 2014 [facility] [place] [facility] [address] [id number] [place] [address]- 0856 Jul, [facility] [place] [facility] [address] [id number] [place] [address]- 4021 Jul, [facility] [place] [facility] [address] [facility] [id number] [place] [address]- 6237 Jul, [facility] [place] [facility] [address] [id number] [place] [address]- 4609 Jul, [facility] [place] [facility] [address] [id number] [place] [address]- 0506 Jul, [facility] [place] [facility] [address] [id number] [place] [address]- 3422 Jul, [facility] [place] [facility] [address] [facility] [id number] [place] [address]- 7292 Jun, [facility] [place] [facility] [address] [id number] [place] [address]- 2777 Jun, 2014 [facility] [place] [facility] [address] [id number] [place] [address]- 6459 Jun, [facility] [place] [facility] [address] [id number] [place] [address]- 7486 Jun, [facility] [place] [facility] [address] [id number] [place] [address]- 2246 Jun, [facility] [place] [facility] [address] [id number] [place] [address]- 0883 Jun, 2014 [facility] [place] [facility] [address] [id number] [place] [address]- 4026 Jun, 2014 [facility] [place] [facility] [address] [id number] [place] [address]- 1236 Jun, 2014 [facility] [place] [facility] [address] [facility] [id number] [place] [address]- 8156 Jun, 2014 [facility] [place] [facility] [address] [id number] [place] [address]- 4468 Jun, 2014 [facility] [place] [facility] [address] [id number] [place] [address]- 4981 Jun, 2014 [facility] [place] [facility] [address] [facility] [id number] [place] [address]- 8199 Jun, 2014 [facility] [place] [facility] [address] [facility] [id number] [place] [address]- 8740 Jun, [facility] [place] [facility] [address] [facility] [id number] [place] [address]- 6992 Jun, [facility] [place] [facility] [address] [facility] [id number] [place] [address]- 9497 May, [facility] [place] [facility] [address] [facility] [id number] [place] [address]- 3653 May, [facility] [place] [facility] [address] [facility] [id number] [place] [address]- 9052 May, [facility] [place] [facility] [address] [facility] [id number] [place] [address]- 9044 May, [facility] [place] [facility] [address] [facility] [id number] [place] [address]- 7293 May, [facility] [place] [facility] [address] [facility] [id number] [place] [address]- 5025 May, [facility] [place] [facility] [address] [facility] [id number] [place] [address]- 2087 May, [facility] [place] [facility] [address] [id number] [place] [address]- 1577 May, [facility] [place] [facility] [address] [id number] [place] [address]- 5848 Apr, [facility] [place] [facility] [address] [id number] [place] [address]- 0196 Apr, [facility] [place] [facility] [address] [id number] [place] [address]- 1410 Apr, [facility] [place] [facility] [address] [id number] [place] [address]- 1992 Apr, [facility] [place] [facility] [address] [id number] [place] [address]- 1596 Apr, [facility] [place] [facility] [address] [id number] [place] [address]- 6967 Apr, [facility] [place] [facility] [address] [id number] [place] [address]- 3478 Apr, [facility] [place] [facility] [address] [id number] [place] [address]- 8609 Apr, [facility] [place] [facility] [address] [id number] [place] [address]- 3846 Apr, [facility] [place] [facility] [address] [id number] [place] [address]- 4296 10 Apr, 2014 [facility] [place] [facility] [address] [id number] [place] [address]- 1508 Apr, [facility] [place] [facility] [address] [id number] [place] [address]- 7779 Apr, [facility] [place] [facility] [address] [id number] [place] [address]- 1012 Mar, [facility] [place] [facility] [address] [id number] [place] [address] Mar, [facility] [place] [facility] [address] [id number] [place] [address] Mar, [facility] [place] [facility] [address] [id number] [place] [address] Mar, [facility] [place] [facility] [address] [id number] [place] [address] Mar, [facility] [place] [facility] [address] [id number] [place] [address] Mar, [facility] [place] [facility] [address] [id number] [place] [address] Mar, [facility] [place] [facility] [address] [id number] [place] [address] Mar, [facility] [place] [facility] [address] [id number] [place] [address] Feb, [facility] [place] [facility] [address] [id number] [place] [address] Feb, [facility] [place] [facility] [address] [id number], [place] [address] Feb, [facility] [place] [facility] [address] [id number] [place] [address] Feb, [facility] [place] [facility] [address] [id number], [place] [address] Feb, [facility] [place] [facility] [address] [id number], [place] [address] Feb, [facility] [place] [facility] [address] [id number], [place] [address] Feb, [facility] [place] [facility] [address] [id number] [place] [address] Feb, [facility] [place] [facility] [address] [id number], [place] [address] Jan, [facility] [place] [facility] [address] [id number] [place] [address] Jan, [facility] [place] [facility] [address] [id number] [place] [address] 17 Jan, 2013 [facility] [place] [facility] [address] [id number] [place] [address] 17 Jan, 2013 [facility] [place] [facility] [address] [id number] [place] [address] 16 Jan, 2013 [facility] [place] [facility] [address] [id number] [place] [address] 16 Jan, 2013 [facility] [place] [facility] [address] [id number] [place] [address] 15 Jan, 2013 [facility] [place] [facility] [address] [id number] [place] [address] 15 Jan, 2013 [facility] [place] [facility] [address] [id number] [place] [address] 15 Jan, 2013 [facility] [place] [facility] [address] [id number] [place] [address] 15 Jan, 2013 [facility] [place] [facility] [address] [id number] [place] [address] 1242 09 Jan, 2013 [facility] [place] [facility] [address] [id number] [place] [address] 2549 09 Jan, 2013 [facility] [place] [facility] [address] [id number] [place] [address] 8304 Dec, [facility] [place] [facility] [address] [id number] [place] [address]- 2543 Dec, [facility] [place] [facility] [address] [id number] [place] [address]- 2549 Dec, [facility] [place] [facility] [address] [id number] [place] [address]- 0048 Dec, [facility] [place] [facility] [address] [id number] [place] [address]- 3158 Nov, [facility] [place] [facility] [address] [id number] [place] [address]- 6146 Nov, [facility] [place] [facility] [address] [id number] [place] [address]- 9162 Nov, [facility] [place] [facility] [address] [id number] [place] [address]- 1610 Nov, [facility] [place] [facility] [address] [id number] [place] [address]- 2036 Oct, [facility] [place] [facility] [address] [id number] [place] [address]- 2457 Oct, [facility] [place] [facility] [address] [id number] [place] [address]- 8097 Oct, [facility] [place] [facility] [address] [id number] [place] [address]- 0661 Oct, [facility] [place] [facility] [address] [id number] [place] [address]- 9010 Oct, [facility] [place] [facility] [address] [id number] [place] [address]- 4048 Oct, [facility] [place] [facility] [address] [id number] [place] [address]- 4592 Oct, [facility] [place] [facility] [address] [id number] [place] [address]- 9496 Oct, [facility] [place] [facility] [address] [id number] [place] [address]- 1991 Oct, [facility] [place] [facility] [address] [id number] [place] [address]- 5128 Oct, [facility] [place] [facility] [address] [id number] [place] [address]- 9735 September, [facility] [place] [facility] [address] [id number] [place] [address]- 0757 September, [facility] [place] [facility] [address] [id number] [place] [address]- 4838 September, [facility] [place] [facility] [address] [id number] [place] [address]- 6361 September, [facility] [place] [facility] [address] [id number] [place] [address]- 4800 September, [facility] [place] [facility] [address] [id number] [place] [address]- 5024 September, [facility] [place] [facility] [address] [id number] [place] [address]- 5728 September, [facility] [place] [facility] [address] [id number] [place] [address]- 7896 September, [facility] [place] [facility] [address] [id number] [place] [address]- 5030 Aug, [facility] [place] [facility] [address] [id number] [place] [address]- 4197 Aug, [facility] [place] [facility] [address] [id number] [place] [address]- 4574 Aug, [facility] [place] [facility] [address] [id number] [place] [address]- 5060 Aug, [facility] [place] [facility] [address] [id number] [place] [address]- 8216 Aug, [facility] [place] [facility] [address] [id number] [place] [address]- 1997 Aug, [facility] [place] [facility] [address] [id number] [place] [address]- 7060 Aug, [facility] [place] [facility] [address] [id number] [place] [address]- 6119 Aug, [facility] [place] [facility] [address] [id number] [place] [address] Aug, [facility] [place] [facility] [address] [id number] [place] [address] Jul, [facility] [place] [facility] [address] [id number] [place] [address] Jul, [facility] [place] [facility] [address] [id number] [place] [address]- 9632 26 Jul, 2013 [facility] [place] [facility] [address] [id number] [place] [address]- 0476 Jul, [facility] [place] [facility] [address] [id number] [place] [address]- 6266 Jul, [facility] [place] [facility] [address] [id number] [place] [address]- 2506 Jul, [facility] [place] [facility] [address] [id number] [place] [address]- 5487 Jul, [facility] [place] [facility] [address] [id number] [place] [address]- 9673 Jul, [facility] [place] [facility] [address] [id number] [place] [address]- 9893 Jul, [facility] [place] [facility] [address] [id number] [place] [address]- 4988 Jul, [facility] [address] [id number] [place] [address]- 4354 Jul, [facility] [place] [facility] [address] [id number] [place] [address]- 6215 17 Jul, 2013 [facility] [place] [facility] [address] [id number] [place] [address]- 7734 17 Jul, 2013 [facility] [place] [facility] [address] [id number] [place] [address]- 5358 Jul, [facility] [place] [facility] [address] [id number] [place] [address]- 5435 Jul, [facility] [place] [facility] [address] [id number] [place] [address]- 2147 Jul, [facility] [place] [facility] [address] [id number] [place] [address]- 1806 Jul, [facility] [place] [facility] [address] [id number] [place] [address]- 6888 Jul, [facility] [place] [facility] [address] [id number] [place] [address]- 8237 Jul, [facility] [place] [facility] [address] [id number] [place] [address]- 3548 Jul, [facility] [place] [facility] [address] [id number] [place] [address]- 0118 Jun, [facility] [place] [facility] [address] [id number] [place] [address]- 3373 Jun, [facility] [place] [facility] [address] [id number] [place] [address]- 3105 Jun, [facility] [place] [facility] [address] [id number] [place] [address]- 3180 Jun, [facility] [place] [facility] [address] [id number] [place] [address]- 9219 Jun, [facility] [place] [facility] [address] [id number] [place] [address]- 9753 Jun, [facility] [place] [facility] [address] [id number] [place] [address]- 4518 Jun, [facility] [place] [facility] [address] [id number] [place] [address]- 5010 Jun, [facility] [place] [facility] [address] [id number] [place] [address]- 9622 Jun, [facility] [place] [facility] [address] [id number] [place] [address]- 0001 Jun, [facility] [place] [facility] [address] [id number] [place] [address]- 8238 Jun, [facility] [place] [facility] [address] [id number] [place] [address]- 7925 Jun, [facility] [place] [facility] [address] [id number] [place] [address]- 6853 May, [facility] [place] [facility] [address] [id number] [place] [address]- 8709 May, [facility] [place] [facility] [address] [id number] [place] [address]- 0741 May, [facility] [place] [facility] [address] [id number] [place] [address]- 7060 May, [facility] [place] [facility] [address] [id number] [place] [address]- 9971 May, [facility] [place] [facility] [address] [id number] [place] [address]- 8942 May, [facility] [place] [facility] [address] [id number] [place] [address]- 8172 May, [facility] [place] [facility] [address] [id number] [place] [address]- 4409 May, [facility] [place] [facility] [address] [id number] [place] [address]- 5470 May, [facility] [place] [facility] [address] [id number] [place] [address]- 3880 May, [facility] [place] [facility] [address] [id number] [place] [address]- 9699 May, [facility] [place] [facility] [address] [id number] [place] [address]- 4047 May, [facility] [place] [facility] [address] [id number] [place] [address]- 5193 May, [facility] [place] [facility] [address] [id number] [place] [address]- 0184 May, [facility] [place] [facility] [address] [id number] [place] [address]- 7377 Apr, [facility] [place] [facility] [address] [id number] [place] [address]- 9811 Apr, [facility] [place] [facility] [address] [id number] [place] [address]- 3557 17 Apr, 2013 [facility] [address] [id number] [place] 1667 17 Apr, 2013 [facility] [place] [facility] [address] [id number] [place] [address]- 9526 16 Apr, 2013 [facility] [place] [facility] [address] [facility] [id number] [place] [address]- 7386 16 Apr, 2013 [facility] [place] [facility] [address] [id number] [place] [address]897 12 Apr, 2013 [facility] [place] [facility] [address] [id number] [place] [address]- 0293 Apr, [facility] [place] [facility] [address] [id number] [place] [address]- 3975 Apr, [facility] [place] [facility] [address] [id number] [place] [address]- 8426 Apr, [facility] [place] [facility] [address] [id number], [place] [address]- 3067 Apr, [facility] [place] [facility] [address] [id number], [place] [address]- 1162 Apr, [facility] [place] [facility] [address] [id number], [place] [address]- 3803 Mar, [facility] [place] [facility] [address] [id number], [place] [address]- 4411 Mar, [facility] [place] [facility] [address] [id number], [place] [address]- 6203 Mar, [facility] [place] [facility] [address] [id number], [place] [address]- 2390 Mar, [facility] [place] [facility] [address] [id number], [place] [address]- 3875 Mar, [facility] [place] [facility] [address] [id number][place]- 7272 Mar, [facility] [place] [facility] [address] [id number][place] 0528 Mar, [facility] [address] [id number] [place] 3034 Mar, [facility] [place] [facility] [address] [id number][place] 3247 Mar, [facility] [address] [id number], [place] [address]- 4825 Mar, [facility] [place] [facility] [address] [id number] [place] [address]- 7643 Mar, [facility] [address] [id number] [place] 1270 Mar, [facility] [place] [facility] [address] [id number] [place] [address]- 5546 Feb, [facility] [address] [id number], [place] [address]- 5921 Feb, [facility] [address] [id number] [id number] Feb, [facility] [address] [id number], [place] [address]- 8261 Feb, [facility] [place] [facility] [address] [id number], [place] [address]- 1284 Feb, [facility] [place] [facility] [address] [id number], [place] [address]- 5664 Feb, [facility] [place] [facility] [address] [id number], [place] [address]- 1266 Feb, [facility] [place] [facility] [address] [id number][place] 8811 Feb, [facility] [place] [facility] [address] [id number][place]- 9986 Feb, [facility] [place] [facility] [address] [id number][place] 9353 Feb, [facility] [place] [facility] [address] [facility] [id number], [place] [address]- 4134 Feb, [facility] [place] [facility] [address] [facility] [id number], [place] [address]- 4838 Feb, [facility] [place] [facility] [address] [facility] [id number][place] 7032 Feb, [facility] [place] [facility] [address] [facility] [id number][id number]- 1798 Jan, [facility] [address] [id number] [place] [id number] Jan, [facility] [address] [id number] [place] [id number] Jan, [facility] [address] [id number] [place] [id number] Jan, [facility] [address] [id number] [place] [id number] Jan, [facility] [address] [facility] [id number][place] [address]- 4248 Jan, [facility] [address] [id number] [place] [id number] Jan, [facility] [address] [facility] [id number], [place] [address]- 7241 Dec, [facility] [place] [facility] [address] [facility] [id number], [place] [address]- 8994 Dec, [facility] [place] [facility] [address] [facility] [id number][place]- 3229 Dec, [facility] [address] [id number] [place] [id number] Dec, [facility] [address] [id number] [place] [id number] Dec, [facility] [address] [id number] [place] [id number] Dec, [facility] [place] [facility] [address] [facility] [id number], [place] [address]- 7149 Dec, [facility] [place] [facility] [address] [id number] [place] [address]- 2546 Dec, [facility] [address] [facility] [id number] [place] [id number] Dec, [facility] [place] [facility] [address] [facility] [id number] [place] [address]- 2546 Dec, [facility] [place] [facility] [address] [facility] [id number] [place] [address]- 4937 Nov, [facility] [place] [facility] [address] [facility] [id number] [place] [address]- 4250 Nov, [facility] [place] [facility] [address] [facility] [id number] [place] [address]- 7333 Nov, [facility] [address] [facility] [id number] [place] [id number] Nov, [facility] [address] [id number] [place] [id number] Oct, [facility] [address] [facility] [id number] [place] [id number] Oct, [facility] [place] [facility] [address] [facility] [id number], [place] [address]- 3374 Oct, [facility] [place] [facility] [address] [facility] [id number], [place] [address]- 7416 Oct, [facility] [place] [facility] [address] [facility] [id number], [place] [address]- 6656 Oct, [facility] [address] [facility] [id number][place] [id number] Oct, [facility] [place] [facility] [address] [facility] [id number] [place] [address]- 2545 Oct, [facility] [address] [id number][place] [id number] Oct, [facility] [address] [facility] [id number][place] [address] September, [facility] [place] [facility] [address] [facility] [id number] [place] [address]- 1251 September, [facility] [address] [id number] [place] [id number] September, [facility] [address] [id number] [place] [address]- 2546 September, [facility] [address] [id number] [place] [address]- 2666 September, [facility] [address] [id number] [place] [address]- 2666 September, [facility] [address] [id number] [place] [id number] September, [facility] [address] [id number] [place] [address]- 6136 September, [facility] [address] [facility] [id number] [place] [address]- 3616 September, [facility] [address] [facility] [id number] [place] [address]- 1502 Aug, [facility] [address] [id number] [place] [id number] Aug, [facility] [address] [id number] [place] [id number] Aug, [facility] [address] [id number] [place] [address]- 4416 Aug, [facility] [place] [facility] [address] [id number] [place] [address]- 2276 Aug, [facility] [address] [id number] [place] [id number] 15 Aug, 2012 [facility] [address] [id number] [place] [id number] Aug, [facility] [place] [facility] [address] [id number] [place] [address]- 3386 Aug, [facility] [place] [facility] [address] [id number] [place] [address]- 3036 Aug, [facility] [place] [facility] [address] [facility] [id number], [place] [address]- 0306 Jul, [facility] [address] [facility] [id number][place] [id number] Jul, [facility] [address] [facility] [id number], [place] [address]- 3536 Jul, [facility] [address] [facility] [id number], [place] [address]- 6726 Jul, [facility] [place] [facility] [address] [facility] [id number], [place] [address] 2541 Jul, [facility] [address] [facility] [id number], [place] [address]- 8416 Jul, [facility] [address] [facility] [id number], [place] [address]- 2546 Jul, [facility] [id number], [place] [address]- 0991 Jul, [facility] [address] [id number] [id number] Jul, [facility] [address] [facility] [id number][place] [id number] Jun, [facility] [address] [id number], [place] [address] 2546 Jun, [facility] [address] [id number][place] [id number] Jun, [facility] [place] [facility] [address] [facility] [id number], [place] [address] 2546 Jun, [facility] [place] [facility] [address] [facility] [id number], [place] [address]- 2546 May, [facility] [address] [facility] [id number], [place] [address]- 8426 May, [facility] [address] [facility] [id number][place] [id number] May, [facility] [address] [id number][place] [id number] May, [facility] [place] [facility] [address] [id number] [place] [address]- 8707 May, [facility] [address] [id number] [place] [id number] May, [facility] [address] [id number] [place] [address]- 8106 May, [facility] [place] [facility] [address] [id number] [place] [address]- 0186 May, [facility] [address] [id number] [place] [id number] Apr, [facility] [address] [id number] [id number] Apr, [facility] [address] [facility] [id number] [place] 4385 Apr, [facility] [place] [facility] [address] [facility] [id number], [place] [address]- 9956 Apr, [facility] [place] [facility] [address] [id number], [place] [address]- 9923 Apr, [facility] [place] [facility] [address] [id number], [place] [address]- 1396 Apr, [facility] [address] [facility] [id number][place] [id number] Apr, [facility] [place] [facility] [address] [facility] [id number], [place] [address]- 7936 Apr, [facility] [place] [facility] [address] [facility] [id number], [place] [address]- 0206 Apr, [facility] [place] [facility] [address] [id number], [place] [address]- 1249 Apr, [facility] [address] [facility] [id number] [place] [id number] Apr, [facility] [place] [facility] [address] [facility] [id number], [place] [address]- 7242 Apr, [facility] [place] [facility] [address] [id number], [place] [address]- 2743 Apr, [facility] [place] [facility] [address] [id number] [place] [address] Apr, [facility] [place] [facility] [address] [id number] [place] [address] Mar, [facility] [place] [facility] [address] [id number] [place] [address] Mar, [facility] [place] [facility] [address] [id number], [place] [address] Mar, [facility] [place] [facility] [address] [id number] [place] [address] 2007 Mar, [facility] [address] [facility] [id number] [id number] Mar, [facility] [place] [facility] [address] [facility] [id number], [place] [address] Mar, [facility] [address] [facility] [id number][place] [id number] Mar, [facility] [place] [facility] [address] [id number], [place] [address] Mar, [facility] [address] [facility] [id number][place] [id number] Feb, [facility] [place] [facility] [address] [id number], [place] [address] Feb, [facility] [place] [facility] [address] [facility] [id number], [place] [address] Feb, [facility] [place] [facility] [address] [id number], [place] [address] Feb, [facility] [place] [facility] [address] [facility] [id number], [place] [address] Jan, [facility] [address] [facility] [id number][place] [id number] Jan, [facility] [place] [facility] [address] [facility] [id number] [place] [address] 13 Jan, 2012 [facility] [place] [facility] [address] [facility] [id number] [place] [address] Jan, [facility] [place] [facility] [address] [facility] [id number] [place] [address] 05 Jan, 2012 [facility] [address] [facility] [id number] [place] [id number] Jan, [facility] [place] [facility] [address] [facility] [id number] [place] [address] Dec, [facility] [address] [facility] [id number] [place] [id number] Dec, [facility] [place] [facility] [address] [facility] [id number], [place] [address] Dec, [facility] [place] [facility] [address] [facility] [id number], [place] [address] Dec, [facility] [place] [facility] [address] [facility] [id number], [place] [address] Nov, [facility] [place] [facility] [address] [facility] [id number], [place] [address] Nov, [facility] [place] [facility] [address] [facility] [id number], [place] [address] Nov, [facility] [address] [facility] [id number][place] [id number] Nov, [facility] [place] [facility] [address] [facility] [id number], [place] [address] Nov, [facility] [address] [facility] [id number][place] [id number] Nov, [facility] [place] [facility] [address] [facility] [id number] [place] [address] Nov, [facility] [place] [facility] [address] [facility] [id number], [place] [address] Nov, [facility] [place] [facility] [address] [facility] [id number], [place] [address]- [address] Nov, [facility] [place] [facility] [address] [id number], [place] [address] Oct, [facility] [place] [facility] [address] [id number], [place] [address] Oct, [facility] [address] [id number] [place] [id number] Oct, [facility] [address] [id number] [place] [id number] Oct, [facility] [address] [id number] [place] [id number] Oct, [facility] [place] [facility] [address] [id number] [place] [address] Oct, [facility] [place] [facility] [address] [facility] [id number], [place] [address] Oct, [facility] [place] [facility] [address] [facility] [id number], [place] [address] Oct, [facility] [place] [facility] [address] [facility] [id number], [place] [address] September, [facility] [place] [facility] [address] [facility] [id number], [place] [address] September, [facility] [place] [facility] [address] [facility] [id number], [place] [address] September, [facility] [place] [facility] [address] [facility] [id number], [place] [address] Aug, [facility] [place] [facility] [address] [id number], [place] [address] Aug, [facility] [place] [facility] [address] [facility] [id number] [place] [id number] Aug, [facility] [place] [facility] [address] [facility] [id number], [place] [address] 18 Aug, 2011 [facility] [place] [facility] [address] [facility] [id number][place] [id number] [address] Aug, [facility] [address] [facility] [id number][place] [id number] Jul, [facility] [address] [id number] [place] [address] Jul, [facility] [address] [id number] [place] [address] Jun, [facility] [address] [id number] [place] [address] Jun, [facility] [address] [id number] [place] [address]- [address]86 Jun, [facility] [address] [id number] [place] [address] 18[address] Jun, [facility] [address] [id number] [place] [address]- 7640 Jun, [facility] [address] [id number], [place] [address] May, [facility] [address] [id number] [place] [address]27 May, [facility] [address] [id number] [address] May, [facility] [address] [id number], [place] [address] May, [facility] [place] [facility] [address] [id number], [place] [address] 16 May, 2011 [facility] [place] [facility] [address] [id number] [place] [address] 9085 May, [facility] [place] [facility] [address] [facility] [id number], [place] [address]- [address] May, [facility] [place] [facility] [address] [id number] [place] [address]- [address] May, [facility] [address] [id number] [place] [address]- [address]395 27 Apr, 2011 [facility] [place] [facility] [address] [id number] [place] [address]- 1167 20 Apr, 2011 [facility] [place] [facility] [address] [id number] [place] [address]- 1147 16 Apr, 2011 [facility] [place] [facility] [address] [id number] [place] [address]- 3835 15 Apr, 2011 [facility] [place] [facility] [address] [id number] [place] [address]- 4170 13 Apr, 2011 [facility] [place] [facility] [address] [id number] [place] [address]- [address]89 05 Apr, 2011 [facility] [place] [facility] [address] [id number] [place] [address]- 6470 22 Mar, 2011 [facility] [place] [facility] [address] [id number] [place] [address]- [address]903 Mar, [facility] [place] [facility] [address] [id number] [place] [address]- 0441 15 Mar, 2011 [facility] [place] [facility] [address] [id number] [place] [address]- 7989 14 Mar, 2011 [facility] [place] [facility] [address] [facility] [id number] [place] [address]- [address]335 14 Mar, 2011 [facility] [place] [facility] [address] [id number] [place] [address]- [address]759 07 Mar, 2011 [facility] [place] [facility] [address] [address] [id number] [place] [address] 04 Mar, 2011 [facility] [place] [facility] [address] [id number] [place] [address] Mar, [facility] [place] [facility] [address] [id number] [place] [address] 14 Feb, 2011 [facility] [place] [facility] [address] [id number] [place] [address] 16 Jun, 2010 [facility] [place] [facility] [address] [id number] [place] [address] 19 May, 2010 [facility] [address] [id number] [place] [address] 13 May, 2010 [facility] [address] [id number] [place] [address] 13 Apr, 2010 [facility] [place] [facility] [address] [id number] [place] [address] Apr, [facility] [address] [id number] [place] [address] Apr, [facility] [place] [facility] [address] [id number] [place] [address] Mar, [facility] [address] [id number] [place] [address] 15 Mar, 2010 [facility] [address] [id number] [place] [address] Mar, [facility] [address] [id number] [place] [address] Mar, [facility] [place] [facility] [address] [id number] [place] [address] Mar, [facility] [place] [facility] [address] [id number] [place] [address] Feb, [facility] [place] [facility] [address] [id number], [place] [address] Feb, [facility] [place] [facility] [address] [id number] [place] [address] Oct, [facility] [place] [facility] [address] [id number], [place] [address] September, [facility] [place] [facility] [address] [id number], [place] [address] Apr, [facility] [place] [facility] [address] [id number], [place] [address] Apr, [facility] [id number] [address] Mar, [facility] [id number] [address] Mar, [facility] [id number] [address] Mar, [facility] [id number] [place] [address] Mar, [facility] [id number] [place] [address] Mar, [facility] [id number] [place] [address] Feb, [facility] [id number] [place] [address] Feb, [facility] [id number], [place] [address] Jan, [facility] [address] [address] Oct, IMMUNIZATIONS No Known Immunizations SOCIAL HISTORY Never Assessed REASON FOR VISIT results PLAN OF CARE VITAL SIGNS MEDICATIONS Medication Instructions Dosage Frequency Start Date End Date Duration Status Fish Oil 1000 MG Orally twice a day 1 capsule 12h Nov, 30 days Active RESULTS No Results PROCEDURES No [...]
--- OUTSIDE RECORDS SUMMARY | 2017-11-22 09:55 | XMS REPORT ---
Author Author RICK BHARDWAJ [facility] e[employer] Address Unknown Phone Unavailable Care Team Providers Care Hull Outfit Supervisor Name Role Phone RICK BHARDWAJ CP Unavailable Allergies, Adverse Reactions, Alerts Substance [...] Available Drug Allergy Problems Problem Type Condition ICD-9 Code Onset Dates Condition Status Problem Obstructive sleep apnea (adult) (pediatric) 327.23 Active Problem Nausea alone 787.02 Active Problem Unspecified sleep disturbance 780.50 Active Problem Unspecified transient cerebral ischemia 435.9 Active Problem Coronary atherosclerosis of unspecified type of vessel, [place] or graft 414.00 Active Problem Anxiety disorder, unspecified 300.00 Active Problem Unspecified gastritis and gastroduodenitis without mention of hemorrhage 535.50 Active Problem Morbid obesity 278.01 Active Problem Other general symptoms 780.99 Active Problem Garner's esophagus 530.85 Active Assessment Anxiety disorder, unspecified 300.00 Active Problem Encounter for long-term (current) use of other medications V58.69 Active Assessment Coronary atherosclerosis of unspecified type of vessel, [place] or graft 414.00 Active Problem Other chronic pain 338.29 Active Assessment Shortness of breath 786.05 Active Problem Shortness of breath 786.05 Active Medications Medication Code System Code Instructions Start Date End Date Status Dosage Zanaflex [facility] [address]-30 4 mg Apr 23, 2013 take 1 capsule (4 mg ) by oral route 3 times per day Nexium [facility] [address]-73 40 mg Jun 17, 2014 take 1 capsule (40 mg ) by oral route 2 times per day Lyrica [facility] [address]-62 100 mg Jun 18, 2014 take 1 capsule (100 mg) by oral route 2 times per day Zoloft [facility] 00448482281 100 MG 1.5 Tablet by Oral route 1 time per day Claritin [facility] 50704953743 10 MG 1 tablet by Oral route 1 time per day Crestor [facility] [address]-86 40 MG Orally Once a day May 29, 2014 take 1 tablet by Oral route 1 time per day ProAir HFA [facility] [address]-73 108 (90 Base) MCG/ACT Inhalation PRN up to 6 times per day September 18, 2014 2 puffs as needed Colace [facility] [address]-57 100 mg Jan 24, 2014 1 capsule by Oral route 2 times per day PRN Fosamax [facility] [address]-56 70 MG Orally once a week Feb 17, 2014 Take 1 tablet by Oral route 1 time per week Hydrochlorothiazide [facility] 29956939944 25 MG 1 tablet by Oral route 1 time per day Vitamin D [facility] [address]-76 1000 units Jan 04, 2012 1 capsule by Oral route 1 time per day Fish Oil [facility] [address]-06 500 mg July 16, 2012 4 Capsule 1 time per day Metformin HCl [facility] [address]-56 1000 MG Orally Twice a day September 18, 2014 1 tablet with meals E-Z Spacer [facility] [address]-06 1 inhaled 2 times a day October 09, 2014 as directed Plato [facility] [address]-51 7.5-325 mg Jun 18, 2014 take 1 tablet by Oral route every 4-6 hours as needed for pain Metoprolol Tartrate [facility] 04963333879 25 MG 2 times per day take 2 tablets daily in the morning and 1 tablet daily in the evening Gabapentin [facility] [address]-03 800 mg Jun 26, 2013 not defined Ativan [facility] [address]-17 0.5 MG Orally Once a day Jun 06, 2014 1 tablet prn severe anxiety Carafate [facility] [address]-08 1 GM Orally 4 times a day May 20, 2015 1 tablet on an empty stomach Flovent HFA [facility] [address]-51 110 MCG/ACT Inhalation Twice a day September 18, 2014 Feb 06, 2015 2 puffs Procedures Procedure Coding System Code Date Office Visit, Est Pt., Level 3 CPT-4 39896 Jan 13, 2015 [facility] VISIT ESTABLISHED PATIENT CPT-4 G0467 Jan 13, 2015 Vital Signs Date/Time: Jan 13, 2015 Temperature 97.9 F Weight 241.4 lbs Height 65 in BMI 40.17 Index Blood Pressure Diastolic 60 mmHg Blood Pressure Systolic 110 mmHg Cardiac Monitoring Heart Rate 74 bpm Results No Known Results Summary Purpose eClinicalWorks Submission
--- OUTSIDE RECORDS SUMMARY | 2017-11-22 09:56 | XMS REPORT ---
Author Author JUAN LUIS ORDONEZ Organization [facility] Address Unknown Phone Unavailable Care Team Providers Care Sales Agent Financial Report Service Name Role Phone JUAN LUIS ORDONEZ Unavailable Unavailable PROBLEMS Type Condition ICD9-CM Code [id number] Code Onset Dates Condition Status SNOMED Code Problem Osteopenia M85.80 Active 356089874 Problem Gynecologic exam normal Z01.419 Active 307351884 Problem Breast cancer screening Z12.39 Active 330876542 Problem Contusion of right foot, initial encounter S90.31XA Active 62239973 Problem Abscess, ear canal H60.00 Active 47933940 Problem High risk medication use Z79.899 Active 527527627944298 Problem Diabetes mellitus, controlled E11.9 Active 501644650 Problem Depressive disorder, not elsewhere classified F32.9 Active 29429161 Problem Lobar pneumonia J18.1 Active 078996048 Problem Creatinine elevation R79.89 Active 298664600 Problem Type 2 diabetes mellitus with diabetic neuropathy, without long-term current use of insulin E11.40 Active 72384540 Problem Anxiety associated with depression F41.8 Active 942990174 Problem Encounter for Zostavax administration Z23 Active 136697052 Problem Other infective otitis externa of left ear H60.392 Active 04147425 Problem Type 2 diabetes mellitus without complications E11.9 Active 160755058 Problem Morbid obesity due to excess calories E66.01 Active 706955325 Problem Mild persistent asthma without complication J45.30 Active 898318635 Problem Essential hypertension I10 Active 85380194 Problem DM neuro manif type II E11.40 Active 67954095 Problem DM neuro manif type II E11.49 Active 11327468 Problem Other hammer toe(s) (acquired), left foot M20.42 Active 84869881 Problem Anxiety disorder, unspecified F41.9 Active 756696442 Problem Hyperlipidemia, unspecified hyperlipidemia type E78.5 Active 72543866 Problem Other hammer toe(s) (acquired), right foot M20.41 Active 135741063 ALLERGIES Unknown Allergies SOCIAL HISTORY No smoking Hx information available PLAN OF CARE VITAL SIGNS MEDICATIONS Unknown Medications RESULTS No Results PROCEDURES No Known procedures IMMUNIZATIONS No Known Immunizations
--- OUTSIDE RECORDS SUMMARY | 2017-11-22 09:56 | XMS REPORT ---
Author Author KELSIE JENNIFER [facility] Address [address] [place] [address] Care Team Providers Care Lead Scientist Name Role Phone JENNIFER IGLESIAS Unavailable PROBLEMS Type Condition ICD9-CM Code IWA37-BX Code Onset Dates Condition Status SNOMED Code Problem Depressive disorder, not elsewhere classified F32.9 Active 59248000 Problem DM neuro manif type II E11.40 Active 24880527 Problem Diabetes mellitus, controlled E11.9 Active 809302908 Problem Anxiety disorder, unspecified F41.9 Active 215511438 Problem Abscess, ear canal H60.00 Active 83051845 Problem Type 2 diabetes mellitus without complications E11.9 Active 434782816 Problem Encounter for Zostavax administration Z23 Active 084605634 Problem Morbid obesity due to excess calories E66.01 Active 475289371 Problem Other infective otitis externa of left ear H60.392 Active 81517433 Problem Contusion of right foot, initial encounter S90.31XA Active 26891429 Problem DM neuro manif type II E11.49 Active 67605512 Problem High risk medication use Z79.899 Active 298588211766409 Problem Hyperlipidemia, unspecified hyperlipidemia type E78.5 Active 79953593 Problem Breast cancer screening Z12.31 Active 907484970 Problem Personal history of nicotine dependence Z87.891 Active 99730087 Problem Medicare annual wellness visit, initial Z00.00 Active 734062941 Problem Strep throat J02.0 Active 72596260 Problem Other microscopic hematuria R31.29 Active 263853994 Problem Other hammer toe(s) (acquired), left foot M20.42 Active 83032490 Problem Mild persistent asthma without complication J45.30 Active 641949409 Problem Essential hypertension I10 Active 31577638 Problem Pain in right ankle and joints of right foot M25.571 Active 256020224 Problem Pain in left ankle and joints of left foot M25.572 Active 771211034 Problem BMI 40.0-44.9, adult Z68.41 Active 969891444 Problem Other chronic pain G89.29 Active 90679448 Problem Gynecologic exam normal Z01.419 Active 601560138 Problem Breast cancer screening Z12.39 Active 357362805 Problem Other hammer toe(s) (acquired), right foot M20.41 Active 722015075 Problem Osteopenia M85.80 Active 111634603 Problem Anxiety associated with depression F41.8 Active 468530981 Problem Type 2 diabetes mellitus with diabetic neuropathy, without long-term current use of insulin E11.40 Active 66017411 Problem Creatinine elevation R79.89 Active 808138618 Problem Lobar pneumonia J18.1 Active 398980713 ALLERGIES Substance Reaction Event Type Date Status Ultram Unknown Drug Allergy Apr, Active Theophylline Unknown Drug Allergy Apr, Active Tegretol Unknown Drug Allergy Apr, Active Talacen Unknown Drug Allergy Apr, Active Imitrex Unknown Drug Allergy Apr, Active Erythromycin Unknown Drug Allergy Apr, Active Emcyt Unknown Drug Allergy Apr, Active Dilantin Unknown Drug Allergy Apr, Active Darvon Unknown Drug Allergy Apr, Active Byetta 10 MCG Pen Unknown Drug Allergy Apr, Active ENCOUNTERS Encounter Location Date Diagnosis [facility] [address] [id number] [place] [id number] September, DM neuro manif type II E11.49 and BMI 40.0-44.9, adult Z68.41 [facility] [address] [id number] [place] [id number] Aug, Anxiety disorder, unspecified F41.9 [facility] [address] [facility] [id number], [place] [address] Aug, [facility] [address] [facility] [id number], [place] [address] Aug, Onychocryptosis L60.0 and DM neuro manif type II E11.40 [facility] [address] [id number] [place] [address] Aug, Acute bronchitis due to other specified organisms J20.8 and BMI 40.0-44.9, adult Z68.41 [facility] [address] [facility] [id number], [place] [address] Aug, [facility] [address] [id number] [place] [address] Aug, [facility] [address] [facility] [id number][place] [address] Aug, Onychocryptosis L60.[address] [facility] [address] [id number] [place] [address] Aug, [facility] [address] [id number] [place] [address] Jul, Strep throat J02.0 ; Other microscopic hematuria R31.29 and BMI 40.0-44.9, adult Z68.41 [facility] [address] [id number] [place] [address] Jul, [facility] [address] [id number] [place] [address] Jun, [facility] [address] [id number] [place] [address] Jun, [facility] [address] [id number] [place] [address] Jun, Type 2 diabetes mellitus without complications E11.9 ; BMI 40.0- 44.9, adult Z68.41 ; Pain in right ankle and joints of right foot M25.571 ; Pain in left ankle and joints of left foot M25.572 and Other chronic pain G89.29 [facility] [address] [facility] [id number], [place] [address] May, Onychomycosis B35.1 ; Onychocryptosis L60.0 and DM neuro manif type II E11.40 [facility] [address] [id number] [place] [address] May, [facility] [address] [id number] [place] [address] May, [facility] [address] [id number] [place] [address] Apr, Medicare annual wellness visit, initial Z00.00 ; Personal history of nicotine dependence Z87.891 ; Breast cancer screening Z12.31 and BMI 40.0- 44.9, adult Z68.[address] [facility] [address] [id number] [place] [address] Apr, Anxiety disorder, unspecified F41.9 [facility] [address] [id number] [place] [address] Feb, [facility] [address]00565[address], [place] [address] Feb, Onychomycosis B35.1 and DM neuro manif type II E11.40 [facility] [address] [id number] [place] [address] Feb, Type 2 diabetes mellitus without complications E11.9 and Encounter for immunization Z23 [facility] [address] [id number] [place] [address] Jan, Anxiety disorder, unspecified F41.9 [facility] [address] [id number] [place] [address] Dec, [facility] [address] [facility] [id number] [address] Nov, Right foot sprain, initial encounter S93.601A ; Onychomycosis B35.1 and DM neuro manif type II E11.49 [facility] [address] [id number] [place] [address] Nov, Type 2 diabetes mellitus without complications E11.[address] [facility] [address] [id number] [place] [address] Nov, [facility] [address] [id number] [place] [address] Nov, Type 2 diabetes mellitus without complications E11.[address] [facility] [address] [id number] [place] [address] Nov, [facility] [address] [id number] [place] [address] Nov, [facility] [address] [facility] [address] [id number] [place] [address] Nov, Type 2 diabetes mellitus without complications E11.9 ; Contusion of right foot, initial encounter S90.31XA and High risk medication use Z79.899 [facility] [address] [id number] [place] [address] Oct, High risk medication use Z79.899 [facility] [address] [id number] [place] [address] Oct, Anxiety disorder, unspecified F41.9 [facility] [address] [id number] [place] [address] September, Type 2 diabetes mellitus with diabetic neuropathy, without long- term current use of insulin E11.40 [facility] [address] [facility] [id number][place] [address] Aug, Onychomycosis B35.1 ; DM neuro manif type II E11.40 and Other hammer toe(s) (acquired), right foot M20.41 [facility] [address] [place] [address] AVE [id number] [place] [id number] Aug, Type 2 diabetes mellitus without complications E11.9 ; Morbid obesity due to excess calories E66.01 and Encounter for immunization Z23 [facility] [facility] [address] [id number] [place] [id number] Aug, [facility] [address] [id number] [place] [address] Aug, Anxiety associated with depression F41.8 [facility] [address] [id number] [place] [address] Jul, Anxiety disorder, unspecified F41.9 [facility] [address] [id number] [place] [address] Jun, Anxiety associated with depression F41.8 [facility] [address] [id number] [place] [address] Jun, Lobar pneumonia J18.1 [facility] [address] [id number] [place] [id number] Jun, Pneumonia of left lower lobe due to infectious organism J18.1 [facility] [address] [id number] [place] [id number] Jun, [facility] [place] [address] [id number] [place] [address] Jun, [facility] [address] [facility] [id number][place] [address] May, Onychomycosis B35.1 ; Other hammer toe(s) (acquired), right foot M20.41 ; Other hammer toe(s) (acquired), left foot M20.42 and DM neuro manif type II E11.40 [facility] [address] [id number] [place] [id number] May, [facility] [address] [id number] [place] [address] May, [facility] [address] [facility] [address] [id number] [place] [address] May, [facility] [address] [id number] [place] [address] May, [facility] [address] [id number] [place] [address] May, Gynecologic exam normal Z01.419 ; Breast cancer screening Z12.39 and Creatinine elevation R79.89 [facility] [address] [id number] [place] [address] Apr, [facility] [address] [id number] [place] [address] Apr, Creatinine elevation R79.[address] [id number] [place] [address] 14 Apr, 2016 DM neuro manif type II E11.40 and Osteopenia M85.80 [facility] [address]00565100[place], [place] [address] Feb, Onychomycosis B35.1 and DM neuro manif type II E11.[address] [id number] [place] [address] Feb, [place] [address] [id number] [place] [address] Jan, Mild persistent asthma without complication J45.30 ; Anxiety disorder, unspecified F41.9 and Essential hypertension I10 [place] [address] [place] [address] Jan, Anxiety disorder, unspecified F41.9 and Depressive disorder , not elsewhere classified F32.9 [facility] [address] [place] [place] [id number] [place] [address] 04285- 9063 Dec, Anxiety disorder, unspecified F41.9 and Depressive disorder , not elsewhere classified F32.9 [facility] [address] [place] [address]196 -[address]152 Dec, Left elbow pain M25.522 [facility] [address] [place] [place] [id number] [place] [address] 12356- 5870 Dec, Anxiety disorder, unspecified F41.9 and Depressive disorder , not elsewhere classified F32.9 [facility] [address] [place] [address] 28842- 6448 Nov, Anxiety disorder, unspecified F41.9 and Depressive disorder , not elsewhere classified F32.9 [facility] [address] [place] [address] 16382- 6078 Nov, Anxiety disorder, unspecified F41.9 and Depressive disorder , not elsewhere classified F32.[address] [place] [id number] [place] [address]3826 Oct, Diabetes mellitus, controlled E11.9 ; Hyperlipidemia, unspecified hyperlipidemia type E78.5 ; Essential hypertension I10 and Mild persistent asthma without complication J45.30 [place] [address]00565100[place], [place] [address]369 Oct, Anxiety disorder, unspecified F41.9 and Depressive disorder , not elsewhere classified F32.9 [place] [address] [place] [address] 61784- 1764 September, Anxiety disorder, unspecified F41.9 and Depressive disorder , not elsewhere classified F32.9 [place] [address] [place] [id number] [place] [address] 74308- 2784 Aug, Onychomycosis B35.1 and DM neuro manif type II E11.[address] [id number] [place] [address] Aug, [place] [address] [place] [address] 14248- 3953 Aug, Anxiety disorder, unspecified F41.9 and Depressive disorder , not elsewhere classified F32.[address] [id number] [place] [id number] Jul, Type 2 diabetes mellitus without complications E11.9 ; Encounter for Zostavax administration Z23 ; Morbid obesity due to excess calories E66.01 and Other infective otitis externa of left ear H60.[address] [facility] [address] [id number] [place] 392789753 Jul, [place] [address]00565100[place] [address]- [address] Jul, [place] [address] [place] [id number] [place] [address] 07613- 5264 Jul, [facility] [address] [id number] [place] [id number] Jun, [place] [address] [place] [id number], [place] [address]- [address]64 Jun, Anxiety disorder, unspecified F41.9 and Depressive disorder , not elsewhere classified F32.9 [facility] [address] [id number] [place] 143044257 Jun, Abscess, ear canal H60.[address] [id number] [place] [id number] Jun, Abscess, ear canal H60.[address] [id number] [place] 934105568 Jun, [facility] [address] [place] [id number] [place] [address] 21853- 8846 May, Anxiety disorder, unspecified F41.9 and Depressive disorder , not elsewhere classified F32.[address] [place] [id number] [place] [id number] Apr, Diabetes mellitus, controlled E11.9 and Breast cancer screening Z12.[address] [id number] [place] 140273688 Apr, Diabetes mellitus, controlled E11.9 ; Breast cancer screening Z12.39 and Morbid obesity due to excess calories E66.01 [place] [address] [place] [address] 74781- 0592 Apr, Anxiety disorder, unspecified F41.9 and Depressive disorder , not elsewhere classified F32.[address] [id number] [place] 3556055[address] Mar, [facility] [address] [place] [place] [id number] [place] [address] 06547- 0790 Mar, Encounter for immunization Z23 [facility] [address] [place] [id number] [place] [address] 49606- 7065 Mar, Anxiety disorder, unspecified F41.9 and Depressive disorder , not elsewhere classified F32.9 [facility] [address] [place] [id number] [place] [address] 00919- 2286 Feb, Foot ulcer, right L97.519 and DM neuro manif type II E11.40 [place] [address] [place] [id number] [place] [address] 19326- 7453 Jan, Anxiety disorder, unspecified 300.00 and Depressive disorder , not elsewhere classified [address] [facility] [address]65100[place] [address] Jan, [address] [place] [address] 38673- 3548 Jan, Cellulitis of right foot 682.7 ; Onychomycosis 110.1 ; Neuropathy 355.9 and Foot ulcer 707.15 [place] [address] [place] [address] 58877- 0704 Jan, Anxiety disorder, unspecified 300.00 and Depressive disorder , not elsewhere classified [id number] [place] [address] [id number] Jan, Anxiety disorder, unspecified 300.00 ; Shortness of breath 786.05 and Coronary atherosclerosis of unspecified type of vessel, tling[place] & [place] or graft 414.00 [address] [place] [address] 73414- 1897 Dec, Anxiety disorder, unspecified 300.00 and Depressive disorder , not elsewhere classified [address] [place] [address] 60124- 5179 Dec, Anxiety disorder, unspecified 300.00 and Depressive disorder , not elsewhere classified [address] [id number] [place] 722854040 Nov, [place] [address] [place] [address] 02662- 9818 Nov, Anxiety disorder, unspecified 300.00 and Depressive disorder , not elsewhere classified [address] [id number] [place] 478184098 Nov, Shortness of breath 786.05 and Morbid obesity 278.01 [facility] [address] [facility] [id number] [address]- 1782 Nov, Anxiety disorder, unspecified 300.00 and Depressive disorder , not elsewhere classified 311 [facility] [address] [facility] [id number] [place] [address]3076 Oct, Asthma, moderate persistent 493.90 [place] [address]00565100[place], [place] [address]- 9139 Oct, Anxiety disorder, unspecified 300.00 and Depressive disorder , not elsewhere classified [address] [place] [address] [place] [id number] [place] [address] 99915- 3424 September, Hammertoe 735.4 ; Onychomycosis 110.1 and Type I diabetes mellitus with neurological manifestations 250.[address] [id number] [place] 766660[address] September, [place] [address] [place] [address] 99962- 5081 September, Anxiety disorder, unspecified 300.00 and Depressive disorder , not elsewhere classified 311 [facility] [address] [place], [place] [address] [id number] [place] 506003035 September, Diabetes type 2, controlled 250.00 ; Asthma, mild persistent 493.90 and Dermatitis, contact 692.[address] [id number] [place] 569285386 September, [facility] [address] [place] [id number], [place] [address]- 5340 September, Anxiety state, unspecified 300.00 and Depressive disorder, not elsewhere classified [address] [place] [address]00565100[place], [place] [address]- 1307 Aug, [facility] [address]00565100[place] [address]66- 3152 Aug, [place] [address] [place] [address] 52447- 0599 Jul, [facility] [place] [facility] [address] [id number] [place] [address]- 0372 30 Jul, 2014 [facility] [place] [facility] [address] [id number] [place] [address]- 3921 Jul, [facility] [place] [facility] [address] [id number] [place] [address]- 3880 Jul, [facility] [place] [facility] [address] [id number] [place] [address]- 9131 Jul, [facility] [place] [facility] [address] [id number] [place] [address]- 6231 Jul, [facility] [place] [facility] [address] [id number] [place] [address]- 3127 Jul, [facility] [place] [facility] [address] [facility] [id number] [place] [address]- 4221 Jul, [facility] [place] [facility] [address] [id number] [place] [address]- 3974 Jun, 2014 [facility] [place] [facility] [address] [id number] [place] [address]- 3649 Jun, 2014 [facility] [place] [facility] [address] [id number] [place] [address]- 9051 Jun, 2014 [facility] [place] [facility] [address] [id number] [place] [address]- 1487 Jun, 2014 [facility] [place] [facility] [address] [id number] [place] [address]- 5413 Jun, 2014 [facility] [place] [facility] [address] [id number] [place] [address]- 2786 Jun, 2014 [facility] [place] [facility] [address] [id number] [place] [address]- 2326 16 Jun, 2014 [facility] [place] [facility] [address] [facility] [id number] [place] [address]- 4226 16 Jun, 2014 [facility] [place] [facility] [address] [id number] [place] [address]- 3506 Jun, 2014 [facility] [place] [facility] [address] [id number] [place] [address]- 4836 Jun, 2014 [facility] [place] [facility] [address] [id number] [place] [address] 2546 Jun, 2014 [facility] [place] [facility] [address] [id number] [place] [address]- 6926 Jun, 2014 [facility] [place] [facility] [address] [id number] [place] [address] 2546 Jun, [facility] [place] [facility] [address] [id number] [place] [address]- 0266 Jun, [facility] [place] [facility] [address] [facility] [id number] [place] [address]- 4120 May, [facility] [place] [facility] [address] [id number] [place] [address]- 0244 May, [facility] [place] [facility] [address] [id number] [place] [address]- 0670 May, [facility] [place] [facility] [address] [facility] [id number] [place] [address]- 3835 May, [facility] [place] [facility] [address] [facility] [id number] [place] [address]- 3770 May, [facility] [place] [facility] [address] [facility] [id number] [place] [address]- 4272 May, [facility] [place] [facility] [address] [id number] [place] [address] 2543 May, [facility] [place] [facility] [address] [id number] [place] [address]- 5486 May, [facility] [place] [facility] [address] [facility] [id number] [place] [address]- 2546 Apr, [facility] [place] [facility] [address] [id number] [place] [address]- 9486 Apr, [facility] [place] [facility] [address] [id number] [place] [address]- 3320 Apr, [facility] [place] [facility] [address] [id number] [place] [address]- 7854 Apr, [facility] [place] [facility] [address] [id number] [place] [address]- 9781 Apr, [facility] [place] [facility] [address] [id number] [place] [address]- 5685 Apr, [facility] [place] [facility] [address] [id number] [place] [address]- 1150 Apr, [facility] [place] [facility] [address] [id number] [place] [address] Apr, [facility] [place] [facility] [address] [id number] [place] [address] Apr, [facility] [place] [facility] [address] [id number] [place] [address] Apr, [facility] [place] [facility] [address] [id number] [place] [address] Apr, [facility] [place] [facility] [address] [id number] [place] [address] Apr, [facility] [place] [facility] [address] [id number] [place] [address] Mar, [facility] [place] [facility] [address] [id number] [place] [address] Mar, [facility] [place] [facility] [address] [id number] [place] [address] Mar, [facility] [place] [facility] [address] [id number] [place] [address] Mar, [facility] [place] [facility] [address] [id number] [place] [address] 17 Mar, 2014 [facility] [place] [facility] [address] [id number] [place] [address] 17 Mar, 2014 [facility] [place] [facility] [address] [id number] [place] [address] Mar, [facility] [place] [facility] [address] [id number] [place] [address] Mar, [facility] [place] [facility] [address] [id number] [place] [address] Feb, [facility] [place] [facility] [address] [id number] [place] [address] Feb, [facility] [place] [facility] [address] [id number] [place] [address] Feb, [facility] [place] [facility] [address] [id number] [place] [address] Feb, [facility] [place] [facility] [address] [id number] [place] [address] Feb, [facility] [place] [facility] [address] [id number] [place] [address] 1987 Feb, [facility] [place] [facility] [address] [id number] [place] [address] Feb, [facility] [place] [facility] [address] [id number] [place] [address]- 6[address] Feb, [facility] [place] [facility] [address] [id number] [place] [address]- 2954 19 Jan, 2013 [facility] [place] [facility] [address] [id number] [place] [address]- 4622 19 Jan, 2013 [facility] [place] [facility] [address] [id number] [place] [address]- 0625 17 Jan, 2013 [facility] [place] [facility] [address] [id number] [place] [address]- 5762 17 Jan, 2013 [facility] [place] [facility] [address] [id number] [place] [address]- 4723 16 Jan, 2013 [facility] [place] [facility] [address] [id number] [place] [address]- 6709 16 Jan, 2013 [facility] [place] [facility] [address] [id number] [place] [address]- 4996 15 Jan, 2014 [facility] [place] [facility] [address] [id number] [place] [address]- 7686 15 Jan, 2013 [facility] [place] [facility] [address] [id number] [place] [address]- 9706 15 Jan, 2013 [facility] [place] [facility] [address] [id number] [place] [address]- 3459 15 Jan, 2014 [facility] [place] [facility] [address] [id number] [place] [address]- 2769 09 Jan, 2014 [facility] [place] [facility] [address] [id number] [place] [address]- 4589 09 Jan, 2014 [facility] [place] [facility] [address] [id number] [place] [address]- 9448 Dec, [facility] [place] [facility] [address] [id number] [place] [address]- 5898 Dec, [facility] [place] [facility] [address] [id number] [place] [address]- 7923 Dec, [facility] [place] [facility] [address] [id number] [place] [address]- 3316 Dec, [facility] [place] [facility] [address] [id number] [place] [address]- 7428 Nov, [facility] [place] [facility] [address] [id number] [place] [address]- 5656 Nov, [facility] [place] [facility] [address] [id number] [place] [address]- 1567 Nov, [facility] [place] [facility] [address] [id number] [place] [address]- 9105 Nov, [facility] [place] [facility] [address] [id number] [place] [address]- 7847 Oct, [facility] [place] [facility] [address] [id number] [place] [address]- 4869 Oct, [facility] [place] [facility] [address] [id number] [place] [address]- 2828 Oct, [facility] [place] [facility] [address] [id number] [place] [address]- 5477 Oct, [facility] [place] [facility] [address] [id number] [place] [address]- 2961 Oct, [facility] [place] [facility] [address] [id number] [place] [address]- 9502 Oct, [facility] [place] [facility] [address] [id number] [place] [address]- 7545 Oct, [facility] [place] [facility] [address] [id number] [place] [address]- 1181 Oct, [facility] [place] [facility] [address] [id number] [place] [address]- 6881 Oct, [facility] [place] [facility] [address] [id number] [place] [address]- 9581 Oct, [facility] [place] [facility] [address] [id number] [place] [address]- 8809 September, [facility] [place] [facility] [address] [id number] [place] [address]- 8218 September, [facility] [place] [facility] [address] [id number] [place] [address]- 3894 September, [facility] [place] [facility] [address] [id number] [place] [address]- 3731 September, [facility] [place] [facility] [address] [id number] [place] [address]- 9747 September, [facility] [place] [facility] [address] [id number] [place] [address]- 8702 September, [facility] [place] [facility] [address] [id number] [place] [address]- 6599 September, [facility] [address] [id number] [place] [address]- 3815 September, [facility] [place] [facility] [address] [id number] [place] [address]- 6111 Aug, [facility] [address] [id number] [place] [address]- 1730 Aug, [facility] [place] [facility] [address] [id number] [place] [address]- 1877 Aug, [facility] [address] [id number] [place] [address]- 9404 Aug, [facility] [address] [id number] [place] [address]- 7684 Aug, [facility] [place] [facility] [address] [id number] [place] [address]- 6910 Aug, [facility] [address] [id number] [place] [address]- 9536 Aug, [facility] [place] [facility] [address] [id number] [place] [address]- 4969 Aug, [facility] [address] [id number] [place] [address]- 7536 Aug, [facility] [place] [place] [facility] [address] [id number] [place] [address]- 3304 Jul, [facility] [place] [facility] [address] [id number] [place] [address]- 5503 Jul, [facility] [place] [facility] [address] [id number] [place] [address]- 9712 Jul, [facility] [place] [facility] [address] [id number] [place] [address]- 4334 Jul, [facility] [place] [facility] [address] [id number] [place] [address]- 2993 Jul, [facility] [place] [facility] [address] [id number] [place] [address]- 0257 Jul, [facility] [place] [facility] [address] [id number] [place] [address]- 5076 Jul, [facility] [place] [facility] [address] [id number] [place] [address]- 7716 Jul, [facility] [place] [facility] [address] [id number] [place] [address]- 5416 Jul, [facility] [place] [facility] [address] [id number] [place] [address]- 7778 Jul, [facility] [place] [facility] [address] [id number] [place] [address]- 1975 Jul, [facility] [place] [facility] [address] [id number] [place] [address]- 4355 Jul, [facility] [place] [facility] [address] [id number] [place] [address]- 7838 Jul, [facility] [place] [facility] [address] [id number] [place] [address]- 5283 Jul, [facility] [place] [facility] [address] [id number] [place] [address]- 8659 Jul, [facility] [place] [facility] [address] [id number] [place] [address]- 2459 Jul, [facility] [place] [facility] [address] [id number] [place] [address]- 5098 Jul, [facility] [place] [facility] [address] [id number] [place] [address]- 2183 Jul, [facility] [place] [facility] [address] [id number] [place] [address]- 7158 Jul, [facility] [place] [facility] [address] [id number] [place] Jul, [facility] [place] [facility] [address] [id number] [place] [address]- 5953 Jun, [facility] [place] [facility] [address] [id number] [place] [address]- 2086 Jun, [facility] [place] [facility] [address] [id number] [place] [address]- 6226 Jun, [facility] [place] [facility] [address] [facility] [id number] [place] [address]- 5966 Jun, [facility] [place] [facility] [address] [id number] [place] [address]- 2109 Jun, [facility] [place] [facility] [address] [id number] [place] [address]- 8650 Jun, [facility] [place] [facility] [address] [facility] [id number] [place] [address]- 9562 Jun, [facility] [place] [facility] [address] [facility] [id number] [place] [address]- 3293 Jun, [facility] [place] [facility] [address] [facility] [id number] [place] [address]- 2427 Jun, [facility] [place] [facility] [address] [facility] [id number] [place] [address]- 7939 Jun, [facility] [place] [facility] [address] [facility] [id number] [place] [address]- 0111 Jun, [facility] [place] [facility] [address] [facility] [id number] [place] [address]- 4262 Jun, [facility] [place] [facility] [address] [facility] [id number] [place] [address]- 5089 May, [facility] [place] [facility] [address] [id number] [place] [address]- 3866 May, [facility] [place] [facility] [address] [facility] [id number] [place] [address]- 9097 May, [facility] [place] [facility] [address] [facility] [id number] [place] [address]- 6422 May, [facility] [address] [id number] [place] [address]- 2359 May, [facility] [place] [facility] [address] [id number] [place] [address]- 0782 May, [facility] [place] [facility] [address] [id number] [place] [address]- 1781 May, [facility] [place] [facility] [address] [id number] [place] [address]- 5527 May, [facility] [place] [facility] [address] [id number] [place] [address]- 7158 May, [facility] [place] [facility] [address] [id number] [place] [address]- 8475 May, [facility] [place] [facility] [address] [id number] [place] [address]- 6384 May, [facility] [place] [facility] [address] [id number] [place] [address]- 0655 May, [facility] [place] [facility] [address] [id number] [place] [address]- 0092 May, [facility] [place] [facility] [address] [id number] [place] [address]- 5623 May, [facility] [place] [facility] [address] [id number], [place] [address]- 8672 Apr, [facility] [place] [facility] [address] [id number], [place] [address]- 2163 Apr, [facility] [place] [facility] [address] [id number] [place] [address]- 8740 17 Apr, 2013 [facility] [place] [facility] [address] [id number] [place] [address]- 9934 17 Apr, 2013 [facility] [place] [facility] [address] [id number] [place] [address]- 3996 16 Apr, 2013 [facility] [place] [facility] [address] [id number] [place] [address]- 8243 16 Apr, 2013 [facility] [address] [id number] [place] [address]- 5141 Apr, [facility] [place] [facility] [address] [id number] [place] [address]- 3430 Apr, [facility] [address] [id number] [place] [address]- 3713 Apr, [facility] [place] [facility] [address] [id number] [place] [address]- 8511 Apr, [facility] [address] [id number] [place] [address]- 5382 Apr, [facility] [place] [facility] [address] [id number] [place] [address]- 0310 Apr, [facility] [address] [id number] [place] [address]- 2635 Mar, [facility] [place] [facility] [address] [id number] [place] [address]- 4743 Mar, [facility] [place] [facility] [address] [id number] [place] [address]- 2462 Mar, [facility] [place] [facility] [address] [id number] [place] [address]- 1022 Mar, [facility] [place] [facility] [address] [id number] [place] [address]- 1827 Mar, [facility] [place] [facility] [address] [id number], [place] [address]- 6550 Mar, [facility] [place] [facility] [address] [id number] [place] [address]- 4718 Mar, [facility] [place] [facility] [address] [id number] [place] [address]- 5175 Mar, [facility] [place] [facility] [address] [id number], [place] [address]- 1206 Mar, [facility] [place] [facility] [address] [id number] [place] [address]- 2546 Mar, [facility] [place] [facility] [address] [id number] [place] [address]- 8536 Mar, [facility] [place] [facility] [address] [id number] [place] [address]- 2546 Mar, [facility] [place] [facility] [address] [id number] [place] [address]- 4076 Feb, [facility] [address] [id number] [place] [address]- 6623 Feb, [facility] [address] [id number] [place] [id number] Feb, [facility] [address] [id number] [place] [address]- 0881 Feb, [facility] [place] [facility] [address] [id number] [place] [address]- 0650 Feb, [facility] [address] [id number] [place] [address]- 5335 Feb, [facility] [address] [id number] [place] [address]- 8484 Feb, [facility] [address] [id number] [place] [address]- 5041 Feb, [facility] [place] [facility] [address] [id number] [place] [address]- 3856 Feb, [facility] [place] [facility] [address] [id number] [place] [address]- 0876 Feb, [facility] [place] [facility] [address] [id number] [place] [address]- 5236 Feb, [facility] [place] [facility] [address] [id number] [place] [address]- 2546 Feb, [facility] [place] [facility] [address] [id number] [place] [address]- 9376 Feb, [facility] [place] [facility] [address] [id number], [place] [address]- 6955 Jan, [facility] [address] [id number] [place] [id number] Jan, [facility] [address] [id number] [place] [id number] Jan, [facility] [address] [id number] [place] [id number] Jan, [facility] [address] [id number] [place] [id number] Jan, [facility] [place] [facility] [address] [facility] [id number], [place] [address]- 8699 Jan, [facility] [address] [id number] [place] [id number] Jan, [facility] [place] [facility] [id number], [place] [address]- 2396 Dec, [facility] [place] [facility] [address] [facility] [id number], [place] [address]- 5391 Dec, [facility] [place] [facility] [address] [facility] [id number], [place] [address]- 9075 Dec, [facility] [address] [id number] [place] [id number] Dec, [facility] [address] [id number] [place] [id number] Dec, [facility] [address] [id number] [place] [id number] Dec, [facility] [place] [facility] [address] [facility] [id number], [place] [address]- 6246 Dec, [facility] [place] [facility] [address] [facility] [id number][place] [address]- 1625 Dec, [facility] [address] [id number] [place] [id number] Dec, [facility] [place] [facility] [address] [facility] [id number][place] 4938 Dec, [facility] [address] [facility] [id number], [place] [address]- 6999 Nov, [facility] [place] [facility] [address] [facility] [id number], [place] [address]- 0096 Nov, [facility] [address] [facility] [id number], [place] [address]- 9556 Nov, [facility] [address] [id number] [place] [id number] Nov, [facility] [address] [id number] [place] [id number] Oct, [facility] [address] [facility] [id number] [place] [id number] Oct, [facility] [place] [facility] [id number], [place] [address]- 4466 Oct, [facility] [place] [facility] [id number], [place] [address]- 3326 Oct, [facility] [place] [facility] [address] [id number], [place] [address]- 3480 Oct, [facility] [address] [facility] [id number] [place] [id number] Oct, [facility] [place] [facility] [id number], [place] [address]- 6376 Oct, [facility] [address] [id number] [place] [id number] Oct, [facility] [address] [facility] [id number] [place] [id number] September, [facility] [place] [facility] [address] [facility] [id number] [place] [address]- 9646 September, [facility] [address] [facility] [id number] [place] [id number] September, [facility] [place] [facility] [address] [facility] [id number], [place] [address]- 5896 September, [facility] [place] [facility] [address] [id number], [place] [address]- 4546 September, [facility] [address] [id number], [place] [address]- 1216 September, [facility] [address] [id number] [place] [id number] September, [facility] [address] [facility] [id number] [place] [address]- 0946 September, [facility] [address] [facility] [id number], [place] [address]- 7536 September, [facility] [address] [facility] [id number] [place] [address]- 1583 Aug, [facility] [address] [id number] [place] [id number] Aug, [facility] [address] [facility] [id number] [place] [id number] Aug, [facility] [address] [facility] [id number], [place] [address]- 9916 Aug, [facility] [address] [facility] [id number], [place] [address]- 9976 Aug, [facility] [address] [id number] [place] [id number] Aug, [facility] [address] [id number] [place] [id number] Aug, [facility] [address] [facility] [id number], [place] [address]- 3136 Aug, [facility] [address] [facility] [id number], [place] [address]- 7506 Aug, [facility] [place] [facility] [address] [facility] [id number], [place] [address]- 4016 Jul, [facility] [address] [id number] [place] [id number] Jul, [facility] [address] [facility] [id number], [place] [address]- 9319 Jul, [facility] [place] [facility] [address] [facility] [id number], [place] [address]- 3388 Jul, [facility] [place] [facility] [address] [facility] [id number] [place] [address]- 4573 Jul, [facility] [place] [facility] [address] [facility] [id number] [place] [address]- 2546 08 Jul, 2012 [facility] [place] [facility] [address] [facility] [id number] [place] [address] 2546 Jul, [facility] [place] [facility] [address] [facility] [id number] [place] [address] Jul, [facility] [address] [id number] [place] [id number] Jul, [facility] [address] [facility] [id number] [place] [id number] Jun, [facility] [address] [id number] [address] Jun, [facility] [address] [id number] [place] [id number] Jun, [facility] [address] [id number], [place] [address] Jun, [facility] [place] [facility] [address] [id number], [place] [address] May, [facility] [place] [facility] [address] [id number], [place] [address] May, [facility] [address] [facility] [id number] [place] [id number] May, [facility] [address] [facility] [id number] [place] [id number] May, [facility] [place] [facility] [address] [facility] [id number], [place] [address] May, [facility] [address] [facility] [id number] [place] [id number] May, [facility] [place] [facility] [address] [facility] [id number], [place] [address] May, [facility] [address] [id number] [place] [address] May, [facility] [address] [id number] [place] [id number] Apr, [facility] [address] [facility] [id number] [place] [id number] Apr, [facility] [place] [facility] [address] [id number] [place] [address] Apr, [facility] [place] [facility] [address] [id number] [place] [address] Apr, [facility] [place] [facility] [address] [facility] [id number] [place] [address] Apr, [facility] [place] [facility] [address] [facility] [id number] [place] [address] Apr, [facility] [address] [facility] [id number] [place] [id number] Apr, [facility] [place] [facility] [address] [facility] [id number] [place] [address] Apr, [facility] [place] [facility] [address] [facility] [id number] [place] [address] Apr, [facility] [place] [facility] [address] [facility] [id number], [place] [address] Apr, [facility] [address] [facility] [id number] [place] [id number] Apr, [facility] [place] [facility] [address] [id number], [place] [address] Apr, [facility] [place] [facility] [address] [facility] [id number] [place] [address] Apr, [facility] [place] [facility] [address] [facility] [id number] [place] [address] Apr, [facility] [place] [facility] [address] [facility] [id number] [place] [address] Mar, [facility] [place] [facility] [address] [id number] [place] [address] Mar, [facility] [place] [facility] [address] [id number] [place] [address] Mar, [facility] [place] [facility] [address] [id number] [place] [address] Mar, [facility] [address] [facility] [id number] [place] [id number] Mar, [facility] [place] [facility] [address] [id number] [place] [address] Mar, [facility] [address] [facility] [id number] [place] [id number] Mar, [facility] [place] [facility] [address] [facility] [id number], [place] [address] Mar, [facility] [id number] [place] [id number] Feb, [facility] [place] [facility] [address] [id number] [address] Feb, [facility] [place] [facility] [address] [facility] [id number], [place] [address] Feb, [facility] [place] [facility] [address] [id number], [place] [address] Feb, [facility] [place] [facility] [address] [id number], [place] [address] 25 Jan, 2012 [facility] [address] [facility] [id number] [place] [id number] 13 Jan, 2012 [facility] [place] [facility] [address] [id number], [place] [address] 13 Jan, 2012 [facility] [place] [facility] [address] [facility] [id number] [place] [address] 10 Jan, 2012 [facility] [place] [facility] [address] [id number], [place] [address] 05 Jan, 2012 [facility] [address] [id number] [place] [id number] Jan, [facility] [place] [facility] [address] [id number] [place] [address] Dec, [facility] [address] [facility] [id number] [place] [id number] Dec, [facility] [place] [facility] [address] [id number] [place] [address] Dec, [facility] [place] [facility] [address] [id number] [place] [address] Dec, [facility] [place] [facility] [address] [id number] [place] [address]- [address] Nov, [facility] [place] [facility] [address] [facility] [id number] [place] [address] Nov, [facility] [place] [facility] [address] [facility] [id number] [place] [address] Nov, [facility] [address] [facility] [id number] [place] [id number] Nov, [facility] [place] [facility] [address] [id number] [place] [address] Nov, [facility] [address] [facility] [id number] [place] [id number] Nov, [facility] [place] [facility] [address] [facility] [id number] [place] [address] Nov, [facility] [place] [facility] [address] [id number], [place] [address] Nov, [facility] [place] [facility] [address] [id number] [place] [address] Nov, [facility] [place] [facility] [address] [facility] [id number] [place] [address] Oct, [facility] [place] [facility] [address] [id number] [place] [address] Oct, [facility] [address] [id number] [place] [id number] Oct, [facility] [address] [id number] [place] [id number] Oct, [facility] [address] [id number] [place] [id number] Oct, [facility] [place] [facility] [address] [facility] [id number] [place] [address] Oct, [facility] [place] [facility] [address] [id number], [place] [address] Oct, [facility] [place] [facility] [address] [id number] [place] [address] Oct, [facility] [place] [facility] [address] [facility] [id number], [place] [address] September, [facility] [place] [facility] [address], [place] [address] September, [facility] [place] [facility] [address] [facility] [id number], [place] [address] September, [facility] [place] [facility] [address] [facility] [id number], [place] [address] Aug, [facility] [place] [facility] [address] [facility] [id number], [place] [address] Aug, [facility] [place] [facility] [address] [facility] [id number], [place] [address] Aug, [facility] [place] [facility] [address] [facility] [id number], [place] [address] Aug, [facility] [place] [facility] [address] [facility] [id number], [place] [address] Aug, [facility] [address] [id number] [place] [id number] Jul, [facility] [place] [facility] [address] [facility] [id number][place] [id number] Jul, [facility] [place] [facility] [address] [facility] [id number], [place] [address] 24 Jun, 2011 [facility] [address] [id number] [place] [address] Jun, [facility] [address] [id number] [place] [address] 13 Jun, 2011 [facility] [address] [id number] [place] [address] Jun, [facility] [place] [facility] [address] [id number] [place] [address] Jun, [facility] [address] [id number] [place] [address] May, [facility] [address] [id number] [place] [address] May, [facility] [address] [id number] [place] [address] May, [facility] [address] [id number] [place] [address] May, [facility] [address] [id number] [place] [address] May, [facility] [address] [id number] [place] [address] May, [facility] [address] [id number] [place] [address] May, [facility] [address] [id number] [place] [address] May, [facility] [address] [id number] [place] [address] Apr, [facility] [place] [facility] [address] [id number] [place] [address] Apr, [facility] [address] [id number] [place] [address] Apr, [facility] [place] [facility] [address] [id number] [place] [address] 15 Apr, 2011 [facility] [place] [facility] [address] [id number] [place] [address] Apr, [facility] [place] [facility] [address] [id number] [place] [address] 05 Apr, 2011 [facility] [place] [facility] [address] [id number] [place] [address] Mar, [facility] [place] [facility] [address] [id number] [place] [address] Mar, [facility] [place] [facility] [address] [id number] [place] [address] 15 Mar, 2011 [facility] [place] [facility] [address] [id number] [place] [address] 14 Mar, 2011 [facility] [place] [facility] [address] [id number] [place] [address] Mar, [facility] [place] [facility] [address] [id number] [place] [address] Mar, [facility] [place] [facility] [address] [id number] [place] [address] Mar, [facility] [place] [facility] [address] [id number] [place] [address] Mar, [facility] [place] [facility] [address] [id number] [place] [address] 14 Feb, 2011 [facility] [place] [facility] [address] [id number] [place] [address] 16 Jun, 2010 [facility] [place] [facility] [address] [id number] [place] [address] May, [facility] [place] [facility] [address] [id number] [place] [address] 359[address] 13 May, 2010 [facility] [place] [facility] [address] [id number] [place] [address] Apr, [facility] [place] [facility] [address] [id number] [place] [address] Apr, [facility] [place] [facility] [address] [id number] [place] Apr, [facility] [place] [facility] [address] [id number] [place] [address] 24 Mar, 2010 [facility] [place] [facility] [address] [id number] [place] [address] 15 Mar, 2010 [facility] [place] [facility] [address] [id number] [place] [address] Mar, [facility] [place] [facility] [address] [id number] [place] [address] Mar, [facility] [place] [facility] [address] [id number] [place] [address] Mar, [facility] [place] [facility] [address] [id number] [place] [address] Feb, [facility] [place] [facility] [address] [id number] [place] [address] Feb, [facility] [place] [facility] [address] [id number] [place] [address] Oct, [facility] [place] [facility] [address] [id number], [place] [address] September, [facility] [place] [facility] [address] [id number] [place] [address] Apr, [facility] [place] [facility] [address] [id number] [place] [address] Apr, [facility] [place] [facility] [address] [id number] [place] [address] Mar, [facility] [place] [facility] [address] [id number] [place] [address] Mar, [facility] [place] [facility] [address] [id number], [place] [address] Mar, [facility] [address] [id number], [place] [address] Mar, [facility] [address], [place] [address] Mar, [facility] [address], [place] [address] Feb, [facility] [address], [place] [address] Feb, [facility] [address], [place] [address] Jan, [facility] [address] [id number], [place] [address] Oct, IMMUNIZATIONS No Known Immunizations SOCIAL HISTORY Never Assessed REASON FOR VISIT MEDICARE PHYSICAL stevo ramírez PLAN OF CARE Activity Details Follow Up annually for preventive care, sooner for chronic health maintenance Reason: VITAL SIGNS Height 65 in 2017-05-04 Weight 250.0 lbs 2017-05-04 Temperature 97.6 degrees Fahrenheit 2017-05-04 Heart Rate 96 bpm 2017-05-04 Respiratory Rate 20 2017-05-04 Oximetry 96 % 2017-05-04 BMI 41.60 kg/m2 2017-05-04 Blood pressure systolic 138 mmHg 2017-05-04 Blood pressure diastolic 88 mmHg 2017-05-04 MEDICATIONS Medication Instructions Dosage Frequency Start Date End Date Duration Status Metformin HCl 1000 MG Orally Twice a day 1 tablet with meals 12h 30 Not-Taking Nebulizer/Tubing/Mouthpiece 1 kit as directed Jun, Not- Taking Oxycodone-Acetaminophen 10-325 MG Orally every 6 hrs 1 tablet as needed 6h 16 Oct, 2016 Not-Taking Calcium + D 315-200 MG-UNIT Orally Twice a day 1 tablet with meals 12h Not-Taking Sucralfate 1 TAKE 1 TABLET BY MOUTH FOUR TIMES DAILY 30 MINUTES BEFORE BEDTIME AND MEALS 30 Active Nexium 40 TAKE ONE CAPSULE BY MOUTH TWICE DAILY 30 Not-Taking Carafate 1 GM Orally Four times a day 1 tablet on an empty stomach 6h Not-Taking Gabapentin 800 MG Orally Four times a day 6h Not-Taking Flovent HFA 110 MCG/ACT 2 puffs Twice a day Inhalation 30 days 30 Active E-Z Spacer 12h Not-Taking Claritin 10 MG Orally Once a day 1 tablet 24h Not-Taking Lisinopril 2.5 MG Orally Once a day 1 tablet 24h 18 Mar, 2015 Not- Taking Ativan 0.5 MG Orally Two times per day, must last 30 days 1 tablet as needed for severe anxiety Active Alendronate Sodium 70 TAKE 1 TABLET BY MOUTH ONCE WEEKLY 4 Active Lisinopril 2.5 TAKE 1 TABLET BY MOUTH EVERY DAY 90 Not-Taking Loratadine 10 TAKE 1 TABLET BY MOUTH DAILY 30 Active Flovent HFA 110 INHALE 2 PUFFS TWICE DAILY(SCHEDULED PREVENTION MEDICINE) RINSE MOUTH AFTER EACH USE 30 Not-Taking Colace 100 MG Orally Two times per day PRN 1 capsule as needed Not-Taking Ipratropium-Albuterol 0.5-2.5 (3) MG/3ML Inhalation every 6 hrs 3 ml 6h Not-Taking [place] 7.5-325 MG Orally 3 times a day 1 tablet as needed 8h Not- Taking Metoprolol Tartrate 25 MG Orally Twice a day TAKE TWO TABLETS BY MOUTH DAILY IN THE MORNING, AND ONE TABLET BY MOUTH DAILY IN THE EVENING. 12h Active Fish Oil 1000 MG Orally twice a day 1 capsule 12h 12 Nov, 2017 30 days Not-Taking Sertraline HCl 100 MG Orally Once a day 1 1/2 tablets 24h Active Baclofen 10 MG Orally Three times a day as needed Not-Taking Lyrica 100 MG Orally Twice a day 1 capsule 12h Not-Taking Ipratropium-Albuterol 0.5-2.5 (3) Inhalation every 6 hrs 3 ml 6h Not-Taking Zanaflex 4 MG Orally every 8 hrs 8h Not-Taking Crestor 40 mg Orally Once a day 1 tablet 24h 0 days Not-Taking Nebulizer 1 by inhalation route 4 times a day 3 mls 6h Not-Taking Esomeprazole Magnesium 40 TAKE ONE CAPSULE BY MOUTH TWICE DAILY 90 Active Trulicity 0.75 MG/0.5ML Subcutaneous once weekly 0.5 ml Aug, 14 Nov, 2017 90 days Not-Taking Ventolin HFA 108 (90 Base) MCG/ACT Inhalation 4 times a day as needed for shortness of breath/cough 2 puffs Active Metformin HCl 1000 TAKE 1 TABLET BY MOUTH TWICE DAILY WITH MEALS 90 Active Trulicity 0.75 MG/0.5 Subcutaneous once weekly 0.5 ml Active Hydrochlorothiazide 25 TAKE 1 TABLET BY MOUTH EVERY DAY 30 Active nexium 40 mg Orally 2 times per day 1 capsule Not-Taking RESULTS Name Result Date Reference Range Mammogram, Bilateral Screening 2017-05-18 CT Scan : Chest, low dose (Screening) 2017-05-31 PROCEDURES Procedure Date Ordered Result Body Site MEASURE BLOOD OXYGEN LEVEL May 04, 2017 INIT PREV PE LTD DUR 1ST 12 MOS MCR May 04, 2017 [facility] VISIT ESTABLISHED PATIENT May 04, 2017 ANNUAL WELLNESS VST; PPS SUBSQT VST May 04, 2017 ANNUAL WELLNES VST; PERSNL PPS INIT May 04, 2017 PT TOBACCO SCREEN RCVD TLK May 04, 2017 FALL RISK ASSESSMENT DOCD May 04, 2017 INSTRUCTIONS MEDICATIONS ADMINISTERED No Known Medications [...]
--- OUTSIDE RECORDS SUMMARY | 2017-11-22 09:56 | XMS REPORT ---
Author JENNIFER Kaba Organization [employer] Address Unknown Phone Unavailable Care Team Providers Care Batch Dumper Name Role Phone JENNIFER IGLESIAS CP Unavailable [...] Coronary atherosclerosis of unspecified type of vessel, modoc or graft 414.00 Active Problem Other general symptoms 780.99 Active Problem Anxiety disorder, unspecified 300.00 Active Problem Unspecified transient cerebral ischemia 435.9 Active Problem Shortness of breath 786.05 Active Problem Obstructive sleep apnea (adult) (pediatric) 327.23 Active Problem Encounter for long-term (current) use of other medications V58.69 Active Problem Unspecified sleep disturbance 780.50 Active Problem Other chronic pain 338.29 Active Problem Nausea alone 787.02 Active Medications Medication Code System Code Instructions Start Date End Date Status Dosage Lisinopril [facility] [address]-97 2.5 MG Orally Once a day Mar 25, 2015 1 tablet Results No Known Results Summary Purpose [employer] Submission
--- OUTSIDE RECORDS SUMMARY | 2017-11-22 09:56 | XMS REPORT ---
Author Author JENNIFER IGLESIAS [facility] Address [address] [place] [address] Care Team Providers Care Stock Control Supervisor Name Role Phone JENNIFER IGLESIAS Unavailable PROBLEMS Type Condition ICD9-CM Code [id number] Code Onset Dates Condition Status SNOMED Code Problem Osteopenia M85.80 Active 721834930 Problem Gynecologic exam normal Z01.419 Active 325044311 Problem Breast cancer screening Z12.39 Active 348530518 Problem Contusion of right foot, initial encounter S90.31XA Active 57827526 Problem Abscess, ear canal H60.00 Active 14988824 Problem High risk medication use Z79.899 Active 664948904476798 Problem Diabetes mellitus, controlled E11.9 Active 586053305 Problem Depressive disorder, not elsewhere classified F32.9 Active 95735059 Problem Lobar pneumonia J18.1 Active 274280240 Problem Creatinine elevation R79.89 Active 431763936 Problem Type 2 diabetes mellitus with diabetic neuropathy, without long-term current use of insulin E11.40 Active 23378697 Problem Anxiety associated with depression F41.8 Active 775074897 Problem Encounter for Zostavax administration Z23 Active 542844864 Problem Other infective otitis externa of left ear H60.392 Active 69194232 Problem Type 2 diabetes mellitus without complications E11.9 Active 390733221 Problem Morbid obesity due to excess calories E66.01 Active 970576938 Problem Mild persistent asthma without complication J45.30 Active 335630496 Problem Essential hypertension I10 Active 83745461 Problem DM neuro manif type II E11.40 Active 74519577 Problem DM neuro manif type II E11.49 Active 08291044 Problem Other hammer toe(s) (acquired), left foot M20.42 Active 26380104 Problem Anxiety disorder, unspecified F41.9 Active 391889542 Problem Hyperlipidemia, unspecified hyperlipidemia type E78.5 Active 06189220 Problem Other hammer toe(s) (acquired), right foot M20.41 Active 430952379 ALLERGIES Substance Reaction Event Type Date Status [...] PLAN OF CARE Activity Details Follow Up prn Reason: VITAL SIGNS Height 65 in 2016-06-24 Weight 244.0 lbs 2016-06-24 Temperature 96.9 degrees Fahrenheit 2016-06-24 Heart Rate 100 bpm 2016-06-24 Respiratory Rate 22 2016-06-24 BMI 40.60 kg/m2 2016-06-24 Blood pressure systolic 118 mmHg 2016-06-24 Blood pressure diastolic 82 mmHg 2016-06-24 MEDICATIONS Medication Instructions Dosage Frequency Start Date End Date Duration Status Nebulizer 1 by inhalation route 4 times a day 3 mls 6h Active Lisinopril 2.5 MG Orally Once a day 1 tablet 24h Mar, Active Carafate 1 GM Orally Four times a day 1 tablet on an empty stomach 6h Active Hydrochlorothiazide 25 TAKE 1 TABLET BY MOUTH EVERY DAY 30 Active Fish Oil 500 MG Orally Once a day 3 capsule 24h Active Sertraline HCl 100 MG Orally Once a day 1 1/2 tablets 24h Active Ipratropium-Albuterol 0.5-2.5 (3) Inhalation every 6 hrs 3 ml 6h Active Colace 100 MG Orally Two times per day PRN 1 capsule as needed Active Metoprolol Tartrate 25 MG Orally Twice a day TAKE TWO TABLETS BY MOUTH DAILY IN THE MORNING, AND ONE TABLET BY MOUTH DAILY IN THE EVENING. 12h Active Flovent HFA 110 INHALE 2 PUFFS TWICE DAILY(SCHEDULED PREVENTION MEDICINE) RINSE MOUTH AFTER EACH USE 30 Active Alendronate Sodium 70 TAKE 1 TABLET BY MOUTH ONCE WEEKLY 4 Active [place] 7.5-325 MG Orally 3 times a day 1 tablet as needed 8h Active Doxycycline Monohydrate 100 mg Orally every 12 hrs 1 capsule 12h Jun, Jun, 10 days Active Nebulizer/Tubing/Mouthpiece 1 kit as directed Jun, Active Nexium 40 TAKE ONE CAPSULE BY MOUTH TWICE DAILY 30 Active Baclofen 10 MG/20ML Active Calcium + D 315-200 MG-UNIT Orally Twice a day 1 tablet with meals 12h Active nexium 40 mg Orally 2 times per day 1 capsule Active Metformin HCl 1000 MG Orally Twice a day 1 tablet with meals 12h 30 Active Loratadine 10 TAKE 1 TABLET BY MOUTH DAILY 30 Active E-Z Spacer 12h Active Crestor 40 mg Orally Once a day 1 tablet 24h Active Gabapentin 800 MG Orally Four times a day 6h Active Ventolin HFA 108 (90 Base) MCG/ACT Inhalation 4 times a day as needed for shortness of breath/cough 2 puffs Active Ativan 0.5 MG Orally Two times per day 1 tablet as needed for severe anxiety Active Claritin 10 MG Orally Once a day 1 tablet 24h Active Ipratropium-Albuterol 0.5-2.5 (3) MG/3ML Inhalation every 6 hrs 3 ml 6h Active Lyrica 100 MG Orally Twice a day 1 capsule 12h Active RESULTS No Results PROCEDURES Procedure Date Ordered Result Body Site [facility] VISIT ESTABLISHED PATIENT Jun 24, 2016 IMMUNIZATIONS No Known Immunizations MEDICAL (GENERAL) [...]
--- OUTSIDE RECORDS SUMMARY | 2017-11-22 09:56 | XMS REPORT ---
Author Author JENNIFER IGLESIAS Organization [employer] Address Unknown Phone Unavailable Care Team Providers Care Transmission Worker Name Role Phone JENNIFER IGLESIAS CP Unavailable Allergies No Known Allergies Problems Problem Type Condition Code Onset Dates Condition Status Problem Diabetes mellitus, controlled E11.9 Active Problem Other infective otitis externa of left ear H60.392 Active Problem Abscess, ear canal H60.00 Active Problem Essential hypertension I10 Active Problem Mild persistent asthma without complication J45.30 Active Problem Hyperlipidemia, unspecified hyperlipidemia type E78.5 Active Problem Encounter for Zostavax administration Z23 Active Problem Morbid obesity due to excess calories E66.01 Active Problem DM neuro manif type II E11.49 Active Problem Type 2 diabetes mellitus without complications E11.9 Active Problem DM neuro manif type II E11.40 Active Problem Depressive disorder, not elsewhere classified F32.9 Active Problem Anxiety disorder, unspecified F41.9 Active Medications No Known Medications Results No Known Results Summary Purpose [employer] Submission
--- OUTSIDE RECORDS SUMMARY | 2017-11-22 09:57 | XMS REPORT ---
Author Author GIGI ROSE [facility] [employer] Address Unknown Phone Unavailable Care Team Providers Care Mail Forwarding System Markup Clerk Name Role Phone GIGI ROSE CP Unavailable Allergies No Known Allergies Problems [...] Coronary atherosclerosis of unspecified type of vessel, tetlin or graft 414.00 Active Problem Other general symptoms 780.99 Active Problem Anxiety disorder, unspecified 300.00 Active Problem Unspecified transient cerebral ischemia 435.9 Active Assessment Encounter for immunization Z23 Active Problem Shortness of breath 786.05 Active Problem Obstructive sleep apnea (adult) (pediatric) 327.23 Active Problem Encounter for long-term (current) use of other medications V58.69 Active Problem Unspecified sleep disturbance 780.50 Active Problem Other chronic pain 338.29 Active Problem Nausea alone 787.02 Active Medications No Known Medications Procedures Procedure Coding System Code Date SINGLE IMMUNIZATION ADMIN CPT-4 64306 Mar 19, 2015 ADMN FLU VAC NO FEE SCHED SAME DAY CPT-4 G0008 Mar 19, 2015 FLUARIX QUAD (3 & UP)-GSK-2014 CPT-4 07212 Mar 19, 2015 Results No Known Results Immunizations Vaccine Administration Date FLUARIX QUAD (3 & UP)-GSK-2014Mar 19, 2015 Summary Purpose [employer] Submission
--- OUTSIDE RECORDS SUMMARY | 2017-11-22 09:57 | XMS REPORT ---
Author Author BOBENA JENNIFER Organization [facility] Address [address] [place] [address] Care Team Providers Care Fertilizer Mixer Name Role Phone JENNIFER IGLESIAS Unavailable PROBLEMS Type Condition ICD9-CM Code WJS28-ZT Code Onset Dates Condition Status SNOMED Code Problem Other infective otitis externa of left ear H60.392 Active 89938013 Problem Encounter for Zostavax administration Z23 Active 013917331 Problem Morbid obesity due to excess calories E66.01 Active 509926485 Problem Osteopenia M85.80 Active 278557878 Problem Hyperlipidemia, unspecified hyperlipidemia type E78.5 Active 42527317 Problem DM neuro manif type II E11.49 Active 09705903 Problem Type 2 diabetes mellitus without complications E11.9 Active 713711365 Problem Essential hypertension I10 Active 56373849 Problem Mild persistent asthma without complication J45.30 Active 065988964 Problem Depressive disorder, not elsewhere classified F32.9 Active 16590712 Problem Anxiety disorder, unspecified F41.9 Active 653782939 Assessment DM neuro manif type II E11.40 Apr, Active 027474012 Problem Diabetes mellitus, controlled E11.9 Active 422743007 Problem DM neuro manif type II E11.40 Active 04751349 Problem Abscess, ear canal H60.00 Active 57807670 ALLERGIES Substance Reaction Event Type Date Status [...] MCG Pen Unknown Drug Allergy Apr, Active SOCIAL HISTORY No smoking Hx information available PLAN OF CARE Activity Details Pending Test TSH W/ FREE T4 Pending Test CBC Pending Test CMP Pending Test DEXA Hip and Spine 3 Months,Reason: VITAL SIGNS Height 65 in 2016-04-20 Weight 249.1 lbs 2016-04-20 Heart Rate 84 bpm 2016-04-20 Respiratory Rate 17 2016-04-20 BMI 41.45 kg/m2 2016-04-20 Blood pressure systolic 108 mmHg 2016-04-20 Blood pressure diastolic 72 mmHg 2016-04-20 MEDICATIONS Medication Instructions Dosage Frequency Start Date End Date Duration Status Crestor 40 mg Orally Once a day 1 tablet 24h Active [place] 7.5-325 MG Orally 3 times a day 1 tablet as needed 8h Active Ativan 0.5 MG Orally Two times per day 1 tablet as needed for severe anxiety Active Calcium + D 315-200 MG-UNIT Orally Twice a day 1 tablet with meals 12h Active Lisinopril 2.5 MG Orally Once a day 1 tablet 24h Mar, Active Colace 100 MG Orally Two times per day PRN 1 capsule as needed Active Flovent HFA 110 Inhalation Twice a day rinse mouth after use 2 puffs Active Zanaflex 4 MG Orally every 8 hrs 8h Active Alendronate Sodium 70 TAKE 1 TABLET BY MOUTH ONCE WEEKLY 4 Active Claritin 10 MG Orally Once a day 1 tablet 24h Active Metformin HCl 1000 MG Orally Twice a day 1 tablet with meals 12h 30 Active Ipratropium-Albuterol 0.5-2.5 (3) MG/3ML Inhalation every 6 hrs 3 ml 6h Active Nebulizer 1 by inhalation route 4 times a day 3 mls 6h Active Sertraline HCl 100 MG Orally Once a day 1 1/2 tablets 24h Active Fish Oil 500 MG Orally Once a day 3 capsule 24h Active Metoprolol Tartrate 25 MG Orally Twice a day TAKE TWO TABLETS BY MOUTH DAILY IN THE MORNING, AND ONE TABLET BY MOUTH DAILY IN THE EVENING. 12h Active Lyrica 100 MG Orally Twice a day 1 capsule 12h Active Ventolin HFA 108 (90 Base) MCG/ACT Inhalation 4 times a day as needed for shortness of breath/cough 2 puffs Jul, Active Hydrochlorothiazide 25 TAKE 1 TABLET BY MOUTH EVERY DAY 30 Active E-Z Spacer 12h Active Gabapentin 800 MG Orally Four times a day 6h Active Carafate 1 GM Orally Four times a day 1 tablet on an empty stomach 6h Active nexium 40 mg Orally 2 times per day 1 capsule Active RESULTS Name Result Date Reference Range A1C (IN HOUSE) 2016-04-20 A1C IN HOUSE 6.5 4.3 - 5.6 % Previous A1c 6.5 Lot [id number] Exp date 01/2018 TSH W/ FREE T4 2016-04-20 TSH 2.020 0.450-4.500 T4,Free(Direct) 0.95 0.82-1.77 CBC 2016-04-20 WBC 6.5 3.4-10.8 RBC 4.42 3.77-5.28 Hemoglobin 12.0 11.1-15.9 Hematocrit 37.8 34.0-46.6 MCV 86 79-97 MCH 27.1 26.6-33.0 MCHC 31.7 31.5-35.7 RDW 17.2 12.3-15.4 Platelets 270 150-379 Neutrophils 68 Lymphs 22 Monocytes 7 Eos 2 Basos 0 Immature Cells Neutrophils (Absolute) 4.5 1.4-7.0 Lymphs (Absolute) 1.4 0.7-3.1 Monocytes(Absolute) 0.4 0.1-0.9 Eos (Absolute) 0.1 0.0-0.4 Baso (Absolute) 0.0 0.0-0.2 Immature Granulocytes 1 Immature Grans (Abs) 0.0 0.0-0.1 NRBC Hematology Comments: CMP 2016-04-20 Glucose, Serum 116 65-99 BUN 13 6-24 Creatinine, Serum 1.12 0.57-1.00 eGFR If NonAfricn Am 55 >59 eGFR If Africn Am 63 >59 BUN/Creatinine Ratio 12 9-23 Sodium, Serum 144 134-144 Potassium, Serum 5.1 3.5-5.2 Chloride, Serum 98 96-106 Carbon Dioxide, Total 29 18-29 Calcium, Serum 9.7 8.7-10.2 Protein, Total, Serum 6.9 6.0-8.5 Albumin, Serum 4.5 3.5-5.5 Globulin, Total 2.4 1.5-4.5 A/G Ratio 1.9 1.1-2.5 Bilirubin, Total 0.3 0.0-1.2 Alkaline Phosphatase, S 127 39-117 AST (SGOT) 26 0-40 ALT (SGPT) 34 0-32 DEXA Hip and Spine 2016-05-19 PROCEDURES Procedure Date Ordered Related Diagnosis Body Site GLYCATED HEMOGLOBIN TEST Apr 20, 2016 [facility] VISIT ESTABLISHED PATIENT Apr 20, 2016 LAB [facility]ILLED [facility] Apr 20, 2016 Office Visit, Est Pt., Level 3 Apr 20, 2016 VENRAUL, ROUTINE* Apr 20, 2016 IMMUNIZATIONS No Known Immunizations
--- OUTSIDE RECORDS SUMMARY | 2017-11-22 09:57 | XMS REPORT ---
Author Author ELZA LARKIN Organization [employer] Address Unknown Phone Unavailable Care Team Providers Care Shop Steward Name Role Phone ELZA LARKIN CP Unavailable [...] 2 diabetes mellitus without complications E11.9 Active Assessment Onychomycosis B35.1 Active Problem DM neuro manif type II E11.40 Active Problem Depressive disorder, not elsewhere classified F32.9 Active Assessment DM neuro manif type II E11.49 Active Problem Anxiety disorder, unspecified F41.9 Active Medications No Known Medications Procedures Procedure Coding System Code Date [facility] VISIT ESTABLISHED PATIENT CPT-4 G0467 Feb 26, 2016 Office Visit, Est Pt., Level 3 CPT-4 01343 Feb 26, 2016 DEBRIDE NAIL, 1-5 CPT-4 68858 Feb 26, 2016 Results Name Result Date Reference Range Unit Abnormality Flag DEBRIDE NAIL 1-5 Summary Purpose [employer]ClinicalWorks Submission
--- OUTSIDE RECORDS SUMMARY | 2017-11-22 09:57 | XMS REPORT ---
Author Author JENNIFER IGLESIAS Organization [employer] Address Unknown Phone Unavailable Care Team Providers Care Molded Goods Inspector Trimmer Name Role Phone JENNIFER IGLESIAS CP Unavailable Allergies No Known Allergies Problems Problem Type Condition Code Onset Dates Condition Status Problem Depressive disorder, not elsewhere classified F32.9 Active Problem DM neuro manif type II E11.40 Active Problem Encounter for Zostavax administration Z23 Active Problem Morbid obesity due to excess calories E66.01 Active Problem Type 2 diabetes mellitus without complications E11.9 Active Problem Diabetes mellitus, controlled E11.9 Active Problem Anxiety disorder, unspecified F41.9 Active Problem Other infective otitis externa of left ear H60.392 Active Problem Abscess, ear canal H60.00 Active Medications Medication Code System Code Instructions Start Date End Date Status Dosage Crestor [facility] [address]-52 40 mg Orally Once a day 1 tablet Metformin HCl [facility] 41819553168 1000 Orally 2 times a day 1 tablet with meals Results No Known Results Summary Purpose [employer]ClinicalWorks Submission
--- OUTSIDE RECORDS SUMMARY | 2017-11-22 09:57 | XMS REPORT ---
Author Author JEN LU Organization [facility] Address [address] [place] [address] Care Team Providers Care Wood Boatbuilder Name Role Phone JEN LU Unavailable PROBLEMS Type Condition ICD9-CM Code ORQ05-TS Code Onset Dates Condition Status SNOMED Code Problem Abscess, ear canal H60.00 Active 41001563 Problem Morbid obesity due to excess calories E66.01 Active 081041331 Problem Other infective otitis externa of left ear H60.392 Active 32674316 Problem Hyperlipidemia, unspecified hyperlipidemia type E78.5 Active 91547304 Problem Essential hypertension I10 Active 58464316 Problem Type 2 diabetes mellitus without complications E11.9 Active 977821098 Problem Encounter for Zostavax administration Z23 Active 881634447 Problem Mild persistent asthma without complication J45.30 Active 109199719 Problem DM neuro manif type II E11.49 Active 29641682 Problem DM neuro manif type II E11.40 Active 69788919 Problem Depressive disorder, not elsewhere classified F32.9 Active 58193056 Problem Anxiety disorder, unspecified F41.9 Active 318871092 Assessment Anxiety disorder, unspecified F41.9 Jan, Active 713351492 Problem Diabetes mellitus, controlled E11.9 Active 717516665 ALLERGIES Unknown Allergies SOCIAL HISTORY No smoking Hx information available PLAN OF CARE VITAL SIGNS MEDICATIONS Unknown Medications RESULTS No Results PROCEDURES Procedure Date Ordered Related Diagnosis Body Site [facility] VISIT MENTAL HEALTH ESTAB PT Jan 14, 2016 Psychotherapy, patient &/family, 30 minutes, established patient Jan 14, 2016 IMMUNIZATIONS No Known Immunizations
--- OUTSIDE RECORDS SUMMARY | 2017-11-22 09:57 | XMS REPORT ---
Author Author JEN LU Organization [employer] Address Unknown Phone Unavailable Care Team Providers Care Engineering Operator Name Role Phone JEN LU Unavailable Allergies [...] Coding System Code Date Psychotherapy, patient &/family, 30 minutes, established patient CPT-4 06041 Dec 17, 2015 [facility] VISIT MENTAL HEALTH ESTAB PT CPT-4 G0470 Dec 17, 2015 Results No Known Results Summary Purpose [employer]ClinicalWorks Submission
--- OUTSIDE RECORDS SUMMARY | 2017-11-22 09:57 | XMS REPORT ---
Author Author SAEED NATH [facility] [employer] Address Unknown Phone Unavailable Care Team Providers Care College Specialist Name Role Phone SAEED NATH CP Unavailable Allergies, Adverse Reactions, Alerts Substance [...] Encounter for Zostavax administration Z23 Active Assessment Left elbow pain M25.522 Active Problem DM neuro manif type II E11.40 Active Problem Depressive disorder, not elsewhere classified F32.9 Active Medications Medication Code System Code Instructions Start Date End Date Status Dosage Flovent HFA [facility] 46521110839 110 MCG/ACT 2 puffs Twice a day Inhalation 30 days nexium NDC 0 40 mg Orally 2 times per day 1 capsule Fish Oil [facility] [address]-11 500 MG Orally Once a day 3 capsule E-Z Spacer [facility] [address]-75 Two times a day not defined Lyrica [facility] [address]-70 100 MG Orally Twice a day 1 capsule [address]aflex [facility] [address]-04 4 MG Orally every 8 hrs not defined Lisinopril [facility] 56484242278 2.5 TAKE 1 TABLET BY MOUTH EVERY DAY Hydrochlorothiazide [facility] 21623141255 25 TAKE 1 TABLET BY MOUTH EVERY DAY Metformin HCl [facility] 06245538026 1000 MG Orally Twice a day 1 tablet with meals Carafate [facility] [address]-81 1 GM Orally Four times a day 1 tablet on an empty stomach Alendronate Sodium [facility] 66763211006 70 TAKE 1 TABLET BY MOUTH ONCE WEEKLY Gabapentin [facility] [address]-31 800 MG Orally Four times a day not defined Sertraline HCl [facility] 80374344475 100 MG Orally Once a day 1 1/2 tablets Metoprolol Tartrate [facility] 44414724035 25 MG Orally Twice a day TAKE TWO TABLETS BY MOUTH DAILY IN THE MORNING, AND ONE TABLET BY MOUTH DAILY IN THE EVENING. Crestor [facility] [address]-90 40 mg Orally Once a day 1 tablet Ventolin HFA [facility] [address]-28 108 (90 Base) MCG/ACT Inhalation 4 times a day as needed for shortness of breath/cough July 15, 2015 2 puffs Claritin [facility] [address]-30 10 MG Orally Once a day 1 tablet Lisinopril [facility] [address]-16 2.5 MG Orally Once a day Mar 25, 2015 1 tablet Ativan [facility] [address]-27 0.5 MG Orally Two times per day 1 tablet as needed Flovent HFA [facility] 18313668838 110 Inhalation Twice a day rinse mouth after use 2 puffs Colace [facility] [address]-91 100 MG Orally Two times per day PRN 1 capsule as needed Fosamax [facility] 78062926443 70 MG Orally once a week Take 1 tablet by Oral route 1 time per week Edgecomb [facility] [address]-60 7.5-325 MG Orally 3 times a day 1 tablet as needed Calcium + D [facility] [address]783 315-200 MG-UNIT Orally Twice a day 1 tablet with meals Procedures Procedure Coding System Code Date [facility] VISIT ESTABLISHED PATIENT CPT-4 G0467 Dec 17, 2015 Office Visit, Est Pt., Level 3 CPT-4 51431 Dec 17, 2015 X-RAY EXAM OF ELBOW CPT-4 27160 Dec 17, 2015 Vital Signs Date/Time: Dec 17, 2015 Cardiac Monitoring Heart Rate 78 bpm Weight 253.4 lbs Height 65 in BMI 42.16 Index Blood Pressure Diastolic 82 mmHg Blood Pressure Systolic 126 mmHg Results No Known Results Summary Purpose eClinicalWorks Submission
--- OUTSIDE RECORDS SUMMARY | 2017-11-22 09:57 | XMS REPORT ---
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 Name Role Phone JUAN LUIS ORDONEZ Unavailable Unavailable PROBLEMS Type Condition ICD9-CM Code VVQ55-ON Code Onset Dates Condition Status SNOMED Code Problem Osteopenia M85.80 Active 310673053 Problem Gynecologic exam normal Z01.419 Active 593071500 Problem Breast cancer screening Z12.39 Active 642227755 Problem Contusion of right foot, initial encounter S90.31XA Active 04721549 Problem Abscess, ear canal H60.00 Active 40369985 Problem High risk medication use Z79.899 Active 670951111894369 Problem Diabetes mellitus, controlled E11.9 Active 023203360 Problem Depressive disorder, not elsewhere classified F32.9 Active 95017728 Problem Lobar pneumonia J18.1 Active 557569139 Problem Creatinine elevation R79.89 Active 639540866 Problem Type 2 diabetes mellitus with diabetic neuropathy, without long-term current use of insulin E11.40 Active 91810545 Problem Anxiety associated with depression F41.8 Active 288820631 Problem Encounter for Zostavax administration Z23 Active 370308151 Problem Other infective otitis externa of left ear H60.392 Active 75977123 Problem Type 2 diabetes mellitus without complications E11.9 Active 905429922 Problem Morbid obesity due to excess calories E66.01 Active 783397623 Problem Mild persistent asthma without complication J45.30 Active 044207351 Problem Essential hypertension I10 Active 99023214 Problem DM neuro manif type II E11.40 Active 62205706 Problem DM neuro manif type II E11.49 Active 44172775 Problem Other hammer toe(s) (acquired), left foot M20.42 Active 30258176 Problem Anxiety disorder, unspecified F41.9 Active 296726414 Problem Hyperlipidemia, unspecified hyperlipidemia type E78.5 Active 90890469 Problem Other hammer toe(s) (acquired), right foot M20.41 Active 212700076 ALLERGIES No Information SOCIAL HISTORY Never Assessed PLAN OF CARE Activity Details Follow Up next available Reason: VITAL SIGNS MEDICATIONS Unknown Medications RESULTS No Results PROCEDURES Procedure Date Ordered Result Body Site [facility] VISIT MENTAL HEALTH ESTAB PT Jun 30, 2016 Psychotherapy, patient &/family, 30 minutes, established patient Jun 30, 2016 IMMUNIZATIONS No Known Immunizations MEDICAL (GENERAL) [...]
--- OUTSIDE RECORDS SUMMARY | 2017-11-22 09:58 | XMS REPORT ---
Author JEN Rock Organization [employer] Address Unknown Phone Unavailable Care Team Providers Care Home Service Advisor Name Role Phone JEN LU CP Unavailable Allergies No Known Allergies Problems Problem Type Condition Code Onset Dates Condition Status Problem Anxiety disorder, unspecified F41.9 Active Problem Depressive disorder, not elsewhere classified F32.9 Active Problem Diabetes mellitus, controlled E11.9 Active Assessment Depressive disorder, not elsewhere classified F32.9 Active Problem DM neuro manif type II E11.40 Active Assessment Anxiety disorder, unspecified F41.9 Active Medications No Known Medications Procedures Procedure Coding System Code Date Psychotherapy, patient &/family, 45 minutes, established patient CPT-4 55554 May 26, 2015 COUNT [facility]CLUDES [facility] VISIT MENTAL HEALTH ESTAB PT CPT-4 G0470 May 26, 2015 Results No Known Results Summary Purpose eClinicalWorks Submission
--- NOTE | 2017-11-22 10:09 | Diagnostic Imaging Report ---
Indication: Fall. Pain. Comparison: None Findings: Three views of the left foot are obtained. There is a deformity irregularity of the distal third and fourth metatarsals which is likely old healed trauma. No acute fracture, malalignment or osseous destructive process is seen. There are postoperative changes of the distal tibia and fibula. There is mild generalized osteopenia. Impression: No acute abnormality is demonstrated. Dictated by: Dictated on workstation # [id number]
--- OUTSIDE RECORDS SUMMARY | 2017-11-22 10:18 | XMS REPORT | Continuity of Care Document ---
Author Author [facility] Address Unknown Phone Unavailable Allergies Active Description Code Type Severity Reaction Onset Reported/Identified Relationship to Patient Clinical Status Yes Darvon Drug Allergy N/A N/A 10/17/2008 Yes E-Mycin Drug Allergy N/A N/A 10/17/2008 Yes Imitrex Drug Allergy N/A N/A 10/17/2008 Yes Talacen Drug Allergy N/A N/A 10/17/2008 Yes theophylline Drug Allergy N/ A N/A 10/17/2008 Yes Darvon Drug Allergy 10/17/2008 Yes E-Mycin Drug Allergy 10/17/2008 Yes Imitrex Drug Allergy 10/17/2008 Yes Talacen Drug Allergy 10/17/2008 Yes theophylline Drug Allergy 10/17/2008 Yes acetaminophen [id number] Drug Allergy Mild N/A 03/22/2009 Yes carbamazepine [id number] Drug Allergy Mild N/A 03/22/2009 Yes erythromycin base [id number] Drug Allergy Mild N/A 03/22/2009 Yes pentazocine [id number] Drug Allergy Mild N/A 03/22/2009 Yes phenytoin [id number] Drug Allergy Mild N/A 03/22/2009 Yes propoxyphene [id number] Drug Allergy Mild N/A 03/22/2009 Yes theophylline [id number] Drug Allergy Mild N/A 03/22/2009 Yes Dilantin Drug Allergy N/A N/A 09/15/2009 Yes Tegretol Drug Allergy N/A N/A 09/15/2009 Yes Dilantin Drug Allergy 09/15/2009 Yes Tegretol Drug Allergy 09/15/2009 Yes Ultram Drug Allergy N/A N/A 10/26/2009 Yes Ultram Drug Allergy 10/26/2009 Yes Byetta Drug Allergy N/A N/A 01/31/2011 Yes Byetta Drug Allergy 01/31/2011 Medications There is no data. Problems Date Dx Coded Attending Type Code Diagnosis Diagnosed By 12/03/2007 ALY BENITEZ, JEN Odom 250.00 DIABETES MELLITUS TYPE 2 12/03/2007 JEN LU PHD 401.1 ESSENTIAL HYPERTENSION BENIGN 12/03/2007 250.00 DIABETES MELLITUS TYPE 2 12/03/2007 401.1 ESSENTIAL HYPERTENSION BENIGN 12/03/2007 250.00 DIABETES MELLITUS TYPE 2 12/03/2007 401.1 ESSENTIAL HYPERTENSION BENIGN 12/03/2007 JOSEFINA RODRIGUEZ MD 250.00 DIABETES MELLITUS TYPE 2 12/03/2007 JOSEFINA RODRIGUEZ MD 401.1 ESSENTIAL HYPERTENSION BENIGN 12/03/2007 250.00 DIABETES MELLITUS TYPE 2 12/03/2007 401.1 ESSENTIAL HYPERTENSION BENIGN 12/03/2007 JEN LU PHD 250.00 DIABETES MELLITUS TYPE 2 12/03/2007 JEN LU PHD 401.1 ESSENTIAL HYPERTENSION BENIGN 12/03/2007 JOSEFINA RODRIGUEZ MD 250.00 DIABETES MELLITUS TYPE 2 12/03/2007 JOSEFINA RODRIGUEZ MD 401.1 ESSENTIAL HYPERTENSION BENIGN 12/03/2007 JENNIFER IGLESIAS APRN L 250.00 DIABETES MELLITUS TYPE 2 12/03/2007 JENNIFER IGLESIAS APRN L 401.1 ESSENTIAL HYPERTENSION BENIGN 12/03/2007 250.00 DIABETES MELLITUS TYPE 2 12/03/2007 401.1 ESSENTIAL HYPERTENSION BENIGN 12/03/2007 JOSEFINA RODRIGUEZ MD 250.00 DIABETES MELLITUS TYPE 2 12/03/2007 JOSEFINA RODRIGUEZ MD 401.1 ESSENTIAL HYPERTENSION BENIGN 12/03/2007 JOSEFINA RODRIGUEZ MD 250.00 DIABETES MELLITUS TYPE 2 12/03/2007 JOSEFINA RODRIGUEZ MD 401.1 ESSENTIAL HYPERTENSION BENIGN 12/03/2007 250.00 DIABETES MELLITUS TYPE 2 12/03/2007 401.1 ESSENTIAL HYPERTENSION BENIGN 12/03/2007 JOSEFINA RODRIGUEZ MD 250.00 DIABETES MELLITUS TYPE 2 - UNCOMPLICATED, CONTROLLED 12/03/2007 JOSEFINA RODRIGUEZ MD 401.1 ESSENTIAL HYPERTENSION BENIGN 12/03/2007 MOSHE BEAULIEU 250.00 DIABETES MELLITUS TYPE 2 - UNCOMPLICATED, CONTROLLED 12/03/2007 MOSHE BEAULIEU 401.1 ESSENTIAL HYPERTENSION BENIGN 12/03/2007 JENNIFER IGLESIAS APRN L 250.00 DIABETES MELLITUS TYPE 2 - UNCOMPLICATED, CONTROLLED 12/03/2007 JENNIFER IGLESIAS APRN L 401.1 ESSENTIAL HYPERTENSION BENIGN 12/03/2007 250.00 DIABETES MELLITUS TYPE 2 - UNCOMPLICATED, CONTROLLED 12/03/2007 401.1 ESSENTIAL HYPERTENSION BENIGN 12/03/2007 250.00 DIABETES MELLITUS TYPE 2 - UNCOMPLICATED, CONTROLLED 12/03/2007 401.1 ESSENTIAL HYPERTENSION BENIGN 12/03/2007 250.00 DIABETES MELLITUS TYPE 2 - UNCOMPLICATED, CONTROLLED 12/03/2007 401.1 ESSENTIAL HYPERTENSION BENIGN 12/03/2007 250.00 DIABETES MELLITUS TYPE 2 - UNCOMPLICATED, CONTROLLED 12/03/2007 401.1 ESSENTIAL HYPERTENSION BENIGN 12/03/2007 250.00 DIABETES MELLITUS TYPE 2 - UNCOMPLICATED, CONTROLLED 12/03/2007 401.1 ESSENTIAL HYPERTENSION BENIGN 12/03/2007 250.00 DIABETES MELLITUS TYPE 2 - UNCOMPLICATED, CONTROLLED 12/03/2007 401.1 ESSENTIAL HYPERTENSION BENIGN 12/03/2007 250.00 DIABETES MELLITUS TYPE 2 - UNCOMPLICATED, CONTROLLED 12/03/2007 401.1 ESSENTIAL HYPERTENSION BENIGN 12/03/2007 250.00 DIABETES MELLITUS TYPE 2 - UNCOMPLICATED, CONTROLLED 12/03/2007 401.1 ESSENTIAL HYPERTENSION BENIGN 12/03/2007 250.00 DIABETES MELLITUS TYPE 2 - UNCOMPLICATED, CONTROLLED 12/03/2007 401.1 ESSENTIAL HYPERTENSION BENIGN 12/03/2007 250.00 DIABETES MELLITUS TYPE 2 - UNCOMPLICATED, CONTROLLED 12/03/2007 401.1 ESSENTIAL HYPERTENSION BENIGN 12/03/2007 250.00 DIABETES MELLITUS TYPE 2 - UNCOMPLICATED, CONTROLLED 12/03/2007 401.1 ESSENTIAL HYPERTENSION BENIGN 12/03/2007 250.00 DIABETES MELLITUS TYPE 2 - UNCOMPLICATED, CONTROLLED 12/03/2007 401.1 ESSENTIAL HYPERTENSION BENIGN 12/03/2007 GIGI ROSE DO 250.00 DIABETES MELLITUS TYPE 2 - UNCOMPLICATED, CONTROLLED 12/03/2007 GIGI ROSE DO 401.1 ESSENTIAL HYPERTENSION BENIGN 12/03/2007 JEN LU PHD 250.00 DIABETES MELLITUS TYPE 2 - UNCOMPLICATED, CONTROLLED 12/03/2007 JEN LU PHD 401.1 ESSENTIAL HYPERTENSION BENIGN 12/03/2007 LATASHA GRIJALVA APRN 250.00 DIABETES MELLITUS TYPE 2 - UNCOMPLICATED, CONTROLLED 12/03/2007 LATASHA GRIJALVA APRN 401.1 ESSENTIAL HYPERTENSION BENIGN 12/03/2007 GIGI ROSE DO 250.00 DIABETES MELLITUS TYPE 2 - UNCOMPLICATED, CONTROLLED 12/03/2007 GIGI ROSE DO 401.1 ESSENTIAL HYPERTENSION BENIGN 12/03/2007 JEN LU PHD 250.00 DIABETES MELLITUS TYPE 2 - UNCOMPLICATED, CONTROLLED 12/03/2007 ALY PHD, JEN A 401.1 ESSENTIAL HYPERTENSION BENIGN 12/03/2007 ROSE DO, GIGI K 250.00 DIABETES MELLITUS TYPE 2 - UNCOMPLICATED, CONTROLLED 12/03/2007 ROSE DO, GIGI K 401.1 ESSENTIAL HYPERTENSION BENIGN 12/03/2007 EATON RN BSN, JENNIFER L 250.00 DIABETES MELLITUS TYPE 2 - UNCOMPLICATED, CONTROLLED 12/03/2007 EATON RN BSN, JENNIFER L 401.1 ESSENTIAL HYPERTENSION BENIGN 12/03/2007 ALY PHD, JEN A 250.00 DIABETES MELLITUS TYPE 2 - UNCOMPLICATED, CONTROLLED 12/03/2007 AYL PHD, JEN A 401.1 ESSENTIAL HYPERTENSION BENIGN 12/03/2007 EATON RN BSN, JENNIFER L 250.00 DIABETES MELLITUS TYPE 2 - UNCOMPLICATED, CONTROLLED 12/03/2007 KELSIE RN BSN, JENNIFER L 401.1 ESSENTIAL HYPERTENSION BENIGN 12/03/2007 ALY BENITEZ, JEN A 250.00 DIABETES MELLITUS TYPE 2 - UNCOMPLICATED, CONTROLLED 12/03/2007 ALY BENITEZ, JEN A 401.1 ESSENTIAL HYPERTENSION BENIGN 12/03/2007 KELSIE RN BSN, JENNIFER L 250.00 DIABETES MELLITUS TYPE 2 12/03/2007 KELSIE RN BSN, JENNIFER L 401.1 ESSENTIAL HYPERTENSION BENIGN 12/03/2007 ALY BENITEZ, JEN A 250.00 DIABETES MELLITUS TYPE 2 12/03/2007 ALY BENITEZ, JEN A 401.1 ESSENTIAL HYPERTENSION BENIGN 12/03/2007 ROSE DO, GIGI K 250.00 DIABETES MELLITUS TYPE 2 12/03/2007 ROSE DO, GIGI K 401.1 ESSENTIAL HYPERTENSION BENIGN 12/03/2007 EATENA RN BSN, JENNIFER L 250.00 DIABETES MELLITUS TYPE 2 12/03/2007 EATON RN BSN, JENNIFER L 401.1 ESSENTIAL HYPERTENSION BENIGN 12/03/2007 ALY BENITEZ, JEN A 250.00 DIABETES MELLITUS TYPE 2 12/03/2007 ALY BENITEZ, JEN A 401.1 ESSENTIAL HYPERTENSION BENIGN 12/03/2007 ROSE DO, GIGI K 250.00 DIABETES MELLITUS TYPE 2 12/03/2007 ROSE DO, GIGI K 401.1 ESSENTIAL HYPERTENSION BENIGN 12/03/2007 EATON RN BSN, JENNIFER L 250.00 DIABETES MELLITUS TYPE 2 12/03/2007 EATENA RN BSN, JENNIFER L 401.1 ESSENTIAL HYPERTENSION BENIGN 12/03/2007 ALY PHD, JEN A 250.00 DIABETES MELLITUS TYPE 2 12/03/2007 ALY PHD, JEN A 401.1 ESSENTIAL HYPERTENSION BENIGN 12/03/2007 EATON RN BSN, JENNIFER L 250.00 DIABETES MELLITUS TYPE 2 12/03/2007 EATON RN BSN, JENNIFER L 401.1 ESSENTIAL HYPERTENSION BENIGN 12/03/2007 ALY PHD, JEN A 250.00 DIABETES MELLITUS TYPE 2 12/03/2007 ALY PHD, JEN A 401.1 ESSENTIAL HYPERTENSION BENIGN 12/03/2007 EATON RN BSN, JENNIFER L 250.00 DIABETES MELLITUS TYPE 2 12/03/2007 EATON RN BSN, JENNIFER L 401.1 ESSENTIAL HYPERTENSION BENIGN 12/03/2007 ROSE DO, GIGI K 250.00 DIABETES MELLITUS TYPE 2 12/03/2007 ROSE DO, GIGI K 401.1 ESSENTIAL HYPERTENSION BENIGN 12/03/2007 ALY PHD, JEN A 250.00 DIABETES MELLITUS TYPE 2 12/03/2007 ALY PHD, JEN A 401.1 ESSENTIAL HYPERTENSION BENIGN 12/03/2007 ROSE DO, GIGI K 250.00 DIABETES MELLITUS TYPE 2 12/03/2007 ROSE DO, GIGI K 401.1 ESSENTIAL HYPERTENSION BENIGN 12/03/2007 ALY PHD, JEN A 250.00 DIABETES MELLITUS TYPE 2 12/03/2007 ALY PHD, JEN A 401.1 ESSENTIAL HYPERTENSION BENIGN 12/03/2007 ALY PHD, JEN A 250.00 DIABETES MELLITUS TYPE 2 12/03/2007 ALY PHD, JEN A 401.1 ESSENTIAL HYPERTENSION BENIGN 12/03/2007 ROSE DO, GIGI K 250.00 DIABETES MELLITUS TYPE 2 12/03/2007 ROSE DO, GIGI K 401.1 ESSENTIAL HYPERTENSION BENIGN 12/03/2007 ALY PHD, JEN A 250.00 DIABETES MELLITUS TYPE 2 12/03/2007 ALY PHD, JEN A 401.1 ESSENTIAL HYPERTENSION BENIGN 12/03/2007 EATON RN BSN, JENNIFER L 250.00 DIABETES MELLITUS TYPE 2 12/03/2007 EATON RN BSN, JENNIFER L 401.1 ESSENTIAL HYPERTENSION BENIGN 12/03/2007 ALY PHD, JEN A 250.00 DIABETES MELLITUS TYPE 2 12/03/2007 ALY PHD, JEN A 401.1 ESSENTIAL HYPERTENSION BENIGN 12/03/2007 TRAE DPM, GINA 250.00 DIABETES MELLITUS TYPE 2 12/03/2007 TRAE DPM, GINA 401.1 ESSENTIAL HYPERTENSION BENIGN 12/03/2007 ROSE DO, GIGI K 250.00 DIABETES MELLITUS TYPE 2 12/03/2007 ROSE DO, GIGI K 401.1 ESSENTIAL HYPERTENSION BENIGN 12/03/2007 EATENA RN BSN, JENNIFER L 250.00 DIABETES MELLITUS TYPE 2 12/03/2007 EATON RN BSN, JENNIFER L 401.1 ESSENTIAL HYPERTENSION BENIGN 12/03/2007 ALY BENITEZ, JEN Odom 250.00 DIABETES MELLITUS TYPE 2 12/03/2007 ALY BENITEZ, JEN Odom 401.1 ESSENTIAL HYPERTENSION BENIGN 12/03/2007 ROSE DO, GIGI K 250.00 DIABETES MELLITUS TYPE 2 12/03/2007 ROSE DO, GIGI K 401.1 ESSENTIAL HYPERTENSION BENIGN 12/03/2007 ALY BENITEZ, JEN A 250.00 DIABETES MELLITUS TYPE 2 12/03/2007 ALY BENITEZ, JEN Odom 401.1 ESSENTIAL HYPERTENSION BENIGN 12/03/2007 ALY BENITEZ, JEN Odom 250.00 DIABETES MELLITUS TYPE 2 12/03/2007 ALY BENITEZ, JEN Odom 401.1 ESSENTIAL HYPERTENSION BENIGN 12/07/2007 ALY BENITEZ, JEN Odom 558.9 Gastroenteritis Noninfectious 12/07/2007 ALY BENITEZ, JEN Odom V72.31 Clutch Assembler Exam, Routine 12/07/2007 558.9 Gastroenteritis Noninfectious 12/07/2007 V72.31 Clutch Assembler Exam, Routine 12/07/2007 558.9 Gastroenteritis Noninfectious 12/07/2007 V72.31 Clutch Assembler Exam, Routine 12/07/2007 JOSEFINA RODRIGUEZ MD 558.9 Gastroenteritis Noninfectious 12/07/2007 JOSEFINA RODRIGUEZ MD V72.31 Clutch Assembler Exam, Routine 12/07/2007 558.9 Gastroenteritis Noninfectious 12/07/2007 V72.31 Clutch Assembler Exam, Routine 12/07/2007 JEN LU PHD 558.9 Gastroenteritis Noninfectious 12/07/2007 JEN LU PHD V72.31 Clutch Assembler Exam, Routine 12/07/2007 JOSEFINA RODRIGUEZ MD 558.9 Gastroenteritis Noninfectious 12/07/2007 JOSEFINA RODRIGUEZ MD V72.31 Clutch Assembler Exam, Routine 12/07/2007 JENNIFER IGLESIAS APRN 558.9 Gastroenteritis Noninfectious 12/07/2007 JENNIFER IGLESIAS APRN V72.31 Clutch Assembler Exam, Routine 12/07/2007 558.9 Gastroenteritis Noninfectious 12/07/2007 V72.31 Clutch Assembler Exam, Routine 12/07/2007 JOSEFINA RODRIGUEZ MD 558.9 Gastroenteritis Noninfectious 12/07/2007 JENNIFER SANDERSON, JOSEFINA V72.31 Clutch Assembler Exam, Routine 12/07/2007 JOSEFINA RODRIGUEZ MD 558.9 Gastroenteritis Noninfectious 12/07/2007 JOSEFINA RODRIGUEZ MD V72.31 Clutch Assembler Exam, Routine 12/07/2007 558.9 Gastroenteritis Noninfectious 12/07/2007 V72.31 Clutch Assembler Exam, Routine 12/07/2007 JOSEFINA RODRIGUEZ MD 558.9 Gastroenteritis Noninfectious 12/07/2007 JENNIFER SANDERSON, JOSEFINA V72.31 Clutch Assembler Exam, Routine 12/07/2007 MOSHE BEAULIEU 558.9 Gastroenteritis Noninfectious 12/07/2007 MOSHE BEAULIEU V72.31 Clutch Assembler Exam, Routine 12/07/2007 JENNIFER IGLESIAS APRN 558.9 Gastroenteritis Noninfectious 12/07/2007 JENNIFER IGLESIAS APRN V72.31 Clutch Assembler Exam, Routine 12/07/2007 558.9 Gastroenteritis Noninfectious 12/07/2007 V72.31 Clutch Assembler Exam, Routine 12/07/2007 558.9 Gastroenteritis Noninfectious 12/07/2007 V72.31 Clutch Assembler Exam, Routine 12/07/2007 558.9 Gastroenteritis Noninfectious 12/07/2007 V72.31 Clutch Assembler Exam, Routine 12/07/2007 558.9 Gastroenteritis Noninfectious 12/07/2007 V72.31 Clutch Assembler Exam, Routine 12/07/2007 558.9 Gastroenteritis Noninfectious 12/07/2007 V72.31 Clutch Assembler Exam, Routine 12/07/2007 558.9 Gastroenteritis Noninfectious 12/07/2007 V72.31 Clutch Assembler Exam, Routine 12/07/2007 558.9 Gastroenteritis Noninfectious 12/07/2007 V72.31 Clutch Assembler Exam, Routine 12/07/2007 558.9 Gastroenteritis Noninfectious 12/07/2007 V72.31 Clutch Assembler Exam, Routine 12/07/2007 558.9 Gastroenteritis Noninfectious 12/07/2007 V72.31 Clutch Assembler Exam, Routine 12/07/2007 558.9 Gastroenteritis Noninfectious 12/07/2007 V72.31 Clutch Assembler Exam, Routine 12/07/2007 558.9 Gastroenteritis Noninfectious 12/07/2007 V72.31 Clutch Assembler Exam, Routine 12/07/2007 558.9 Gastroenteritis Noninfectious 12/07/2007 V72.31 Clutch Assembler Exam, Routine 12/07/2007 GIGI ROSE DO K 558.9 Gastroenteritis Noninfectious 12/07/2007 GIGI ROSE DO K V72.31 Clutch Assembler Exam, Routine 12/07/2007 ALY BENITEZ, JEN Odom 558.9 Gastroenteritis Noninfectious 12/07/2007 ALY BENITEZ, JEN Odom V72.31 Clutch Assembler Exam, Routine 12/07/2007 LATASHA GRIJALVA APRN S 558.9 Gastroenteritis Noninfectious 12/07/2007 LATASHA GRIJALVA APRN S V72.31 Clutch Assembler Exam, Routine 12/07/2007 GIGI ROSE DO K 558.9 Gastroenteritis Noninfectious 12/07/2007 DANIEL ROSE DOA K V72.31 Clutch Assembler Exam, Routine 12/07/2007 ALY BENITEZ, JEN Odom 558.9 Gastroenteritis Noninfectious 12/07/2007 ALY BENITEZ, JEN Odom V72.31 Clutch Assembler Exam, Routine 12/07/2007 GIGI ROSE DO K 558.9 Gastroenteritis Noninfectious 12/07/2007 GIGI ROSE DO K V72.31 Clutch Assembler Exam, Routine 12/07/2007 EATON JENNIFER GILLESPIE 558.9 Gastroenteritis Noninfectious 12/07/2007 EATJENNIFER SUTHERLAND APRN V72.31 Clutch Assembler Exam, Routine 12/07/2007 JEN LU PHD 558.9 Gastroenteritis Noninfectious 12/07/2007 JEN LU PHD V72.31 Clutch Assembler Exam, Routine 12/07/2007 EATON JENNIFER GILLESPIE L 558.9 Gastroenteritis Noninfectious 12/07/2007 JENNIFER IGLESIAS APRN V72.31 Clutch Assembler Exam, Routine 12/07/2007 JEN LU PHD 558.9 Gastroenteritis Noninfectious 12/07/2007 ALY BENITEZ, JEN Odom V72.31 Clutch Assembler Exam, Routine 12/07/2007 EATON RN BSN, JENNIFER L 558.9 Gastroenteritis Noninfectious 12/07/2007 EATON RN BSN, JENNIFER L V72.31 Clutch Assembler Exam, Routine 12/07/2007 ALY BENITEZ, JEN Odom 558.9 Gastroenteritis Noninfectious 12/07/2007 ALY PHD, JEN Odom V72.31 Clutch Assembler Exam, Routine 12/07/2007 ROSE DODANIELA K 558.9 Gastroenteritis Noninfectious 12/07/2007 ROSE DO GIGI K V72.31 Clutch Assembler Exam, Routine 12/07/2007 EATON RN BSN, JENNIFER L 558.9 Gastroenteritis Noninfectious 12/07/2007 EATON RN BSN, JENNIFER L V72.31 Clutch Assembler Exam, Routine 12/07/2007 ALY BENITEZ, JEN Odom 558.9 Gastroenteritis Noninfectious 12/07/2007 ALY PHD, JEN Odom V72.31 Clutch Assembler Exam, Routine 12/07/2007 ROSE DANIEL HERNANDEZA K 558.9 Gastroenteritis Noninfectious 12/07/2007 DANIEL ROSE DOA K V72.31 Clutch Assembler Exam, Routine 12/07/2007 EATON RN BSN, JENNIFER L 558.9 Gastroenteritis Noninfectious 12/07/2007 EATON RN BSN, JENNIFER L V72.31 Clutch Assembler Exam, Routine 12/07/2007 ALY BENITEZ, JEN Odom 558.9 Gastroenteritis Noninfectious 12/07/2007 ALY PHD, JEN Odom V72.31 Clutch Assembler Exam, Routine 12/07/2007 EATON RN BSN, JENNIFER L 558.9 Gastroenteritis Noninfectious 12/07/2007 EATON RN BSN, JENNIFER L V72.31 Clutch Assembler Exam, Routine 12/07/2007 ALY BENITEZ, JEN A 558.9 Gastroenteritis Noninfectious 12/07/2007 ALY PHD, JEN Odom V72.31 Clutch Assembler Exam, Routine 12/07/2007 EATON RN BSN, JENNIFER L 558.9 Gastroenteritis Noninfectious 12/07/2007 EATON RN BSN, JENNIFER L V72.31 Clutch Assembler Exam, Routine 12/07/2007 ROSE DODANIELA K 558.9 Gastroenteritis Noninfectious 12/07/2007 ROSE DO GIGI K V72.31 Clutch Assembler Exam, Routine 12/07/2007 BOEANSHUL BENITEZ, JEN Odom 558.9 Gastroenteritis Noninfectious 12/07/2007 ALY BENITEZ, JEN Odom V72.31 Clutch Assembler Exam, Routine 12/07/2007 ROSE DOGIGI K 558.9 Gastroenteritis Noninfectious 12/07/2007 ROSE DO, GIGI K V72.31 Clutch Assembler Exam, Routine 12/07/2007 ALY BENITEZ, JEN Odom 558.9 Gastroenteritis Noninfectious 12/07/2007 ALY BENITEZ, JEN Odom V72.31 Clutch Assembler Exam, Routine 12/07/2007 ALY BENITEZ, JEN Odom 558.9 Gastroenteritis Noninfectious 12/07/2007 ALY BENITEZ, JEN Odom V72.31 Clutch Assembler Exam, Routine 12/07/2007 ROSE GIGI HERNANDEZ K 558.9 Gastroenteritis Noninfectious 12/07/2007 ROSE GIGI HERNANDEZ V72.31 Clutch Assembler Exam, Routine 12/07/2007 JEN LU PHD 558.9 Gastroenteritis Noninfectious 12/07/2007 JEN LU PHD V72.31 Clutch Assembler Exam, Routine 12/07/2007 EATJENNIFER SUTHERLAND APRN L 558.9 Gastroenteritis Noninfectious 12/07/2007 EATENA RN BSNJENNIFER Miles L V72.31 Clutch Assembler Exam, Routine 12/07/2007 JEN LU PHD 558.9 Gastroenteritis Noninfectious 12/07/2007 ALY BENITEZ, JEN Odom V72.31 Clutch Assembler Exam, Routine 12/07/2007 TRAE DPM, GINA 558.9 Gastroenteritis Noninfectious 12/07/2007 TRAE DPM, GINA V72.31 Clutch Assembler Exam, Routine 12/07/2007 GIGI ROSE DO K 558.9 Gastroenteritis Noninfectious 12/07/2007 ROSE DODANIELA K V72.31 Clutch Assembler Exam, Routine 12/07/2007 EATON RN BSN, JENNIFER L 558.9 Gastroenteritis Noninfectious 12/07/2007 EATON RN BSN, JENNIFER L V72.31 Clutch Assembler Exam, Routine 12/07/2007 JEN LU PHD 558.9 Gastroenteritis Noninfectious 12/07/2007 JEN LU PHD V72.31 Clutch Assembler Exam, Routine 12/07/2007 ROSE DODANIELA K 558.9 Gastroenteritis Noninfectious 12/07/2007 GIGI ROSE DO V72.31 Clutch Assembler Exam, Routine 12/07/2007 ALY PHD, JEN A 558.9 Gastroenteritis Noninfectious 12/07/2007 ALY PHD, JEN A V72.31 Clutch Assembler Exam, Routine 12/07/2007 ALY PHD, JEN A 558.9 Gastroenteritis Noninfectious 12/07/2007 ALY PHD, JEN A V72.31 Clutch Assembler Exam, Routine 12/31/2007 ALY PHD, JEN A 840.9 SPRAIN/STRAIN SHOULDER/ARM 12/31/2007 840.9 SPRAIN/STRAIN SHOULDER/ARM 12/31/2007 840.9 SPRAIN/STRAIN SHOULDER/ARM 12/31/2007 JENNIFER SANDERSON, JOSEFINA 840.9 SPRAIN/STRAIN SHOULDER/ARM 12/31/2007 840.9 SPRAIN/STRAIN SHOULDER/ARM 12/31/2007 ALY PHD, JEN Odom 840.9 SPRAIN/STRAIN SHOULDER/ARM 12/31/2007 JENNIFER SANDERSON, JOSEFINA 840.9 SPRAIN/STRAIN SHOULDER/ARM 12/31/2007 JENNIFER IGLESIAS APRN 840.9 SPRAIN/STRAIN SHOULDER/ARM 12/31/2007 840.9 SPRAIN/STRAIN SHOULDER/ARM 12/31/2007 JENNIFER SANDERSON, JOSEFINA 840.9 SPRAIN/STRAIN SHOULDER/ARM 12/31/2007 JENNIFER SANDERSON, JOSEFINA 840.9 SPRAIN/STRAIN SHOULDER/ARM 12/31/2007 840.9 SPRAIN/STRAIN SHOULDER/ARM 12/31/2007 JENNIFER SANDERSON, JOSEFINA 840.9 SPRAIN/STRAIN SHOULDER/ARM 12/31/2007 MOSHE BEAULIEU 840.9 SPRAIN/STRAIN SHOULDER/ARM 12/31/2007 JENNIFER IGLESIAS APRN 840.9 SPRAIN/STRAIN SHOULDER/ARM 12/31/2007 840.9 SPRAIN/STRAIN SHOULDER/ARM 12/31/2007 840.9 SPRAIN/STRAIN SHOULDER/ARM 12/31/2007 840.9 SPRAIN/STRAIN SHOULDER/ARM 12/31/2007 840.9 SPRAIN/STRAIN SHOULDER/ARM 12/31/2007 840.9 SPRAIN/STRAIN SHOULDER/ARM 12/31/2007 840.9 SPRAIN/STRAIN SHOULDER/ARM 12/31/2007 840.9 SPRAIN/STRAIN SHOULDER/ARM 12/31/2007 840.9 SPRAIN/STRAIN SHOULDER/ARM 12/31/2007 840.9 SPRAIN/STRAIN SHOULDER/ARM 12/31/2007 840.9 SPRAIN/STRAIN SHOULDER/ARM 12/31/2007 840.9 SPRAIN/STRAIN SHOULDER/ARM 12/31/2007 840.9 SPRAIN/STRAIN SHOULDER/ARM 12/31/2007 ROSE DO GIGI K 840.9 SPRAIN/STRAIN SHOULDER/ARM 12/31/2007 BOEANSHUL PHD, JEN A 840.9 SPRAIN/STRAIN SHOULDER/ARM 12/31/2007 LATASHA GRIJALVA APRN 840.9 SPRAIN/STRAIN SHOULDER/ARM 12/31/2007 ROSE DODANIELA K 840.9 SPRAIN/STRAIN SHOULDER/ARM 12/31/2007 BOEANSHUL PHD, JEN A 840.9 SPRAIN/STRAIN SHOULDER/ARM 12/31/2007 ROSE DODANIELA K 840.9 SPRAIN/STRAIN SHOULDER/ARM 12/31/2007 JENNIFER IGLESIAS APRN L 840.9 SPRAIN/STRAIN SHOULDER/ARM 12/31/2007 BOEANSHUL PHD, JEN A 840.9 SPRAIN/STRAIN SHOULDER/ARM 12/31/2007 JENNIFER IGLESIAS APRN L 840.9 SPRAIN/STRAIN SHOULDER/ARM 12/31/2007 BOEANSHUL PHD, JEN A 840.9 SPRAIN/STRAIN SHOULDER/ARM 12/31/2007 JENNIFER IGLESIAS APRN L 840.9 SPRAIN/STRAIN SHOULDER/ARM 12/31/2007 BOEANSHUL PHD, JEN A 840.9 SPRAIN/STRAIN SHOULDER/ARM 12/31/2007 ROSE DODANIELA K 840.9 SPRAIN/STRAIN SHOULDER/ARM 12/31/2007 YINKA IGLESIAS APRNSON L 840.9 SPRAIN/STRAIN SHOULDER/ARM 12/31/2007 ALY PHD, JEN A 840.9 SPRAIN/STRAIN SHOULDER/ARM 12/31/2007 ROSE DO GIGI K 840.9 SPRAIN/STRAIN SHOULDER/ARM 12/31/2007 YINKA IGLESIAS APRNSON L 840.9 SPRAIN/STRAIN SHOULDER/ARM 12/31/2007 ALY PHD, JEN A 840.9 SPRAIN/STRAIN SHOULDER/ARM 12/31/2007 KELSIE GILLESPIE, JENNIFER L 840.9 SPRAIN/STRAIN SHOULDER/ARM 12/31/2007 BOEANSHUL PHD, JEN A 840.9 SPRAIN/STRAIN SHOULDER/ARM 12/31/2007 KELSIE RN BSN, JENNIFER L 840.9 SPRAIN/STRAIN SHOULDER/ARM 12/31/2007 ROSE DO, GIGI K 840.9 SPRAIN/STRAIN SHOULDER/ARM 12/31/2007 ALY PHD, JEN A 840.9 SPRAIN/STRAIN SHOULDER/ARM 12/31/2007 ROSE DO, GIGI K 840.9 SPRAIN/STRAIN SHOULDER/ARM 12/31/2007 ALY PHD, JEN A 840.9 SPRAIN/STRAIN SHOULDER/ARM 12/31/2007 ALY PHD, JEN A 840.9 SPRAIN/STRAIN SHOULDER/ARM 12/31/2007 ROSE DO, GIGI K 840.9 SPRAIN/STRAIN SHOULDER/ARM 12/31/2007 ALY PHD, JEN A 840.9 SPRAIN/STRAIN SHOULDER/ARM 12/31/2007 KELSIE GILLESPIE, JENNIFER L 840.9 SPRAIN/STRAIN SHOULDER/ARM 12/31/2007 ALY PHD, JEN A 840.9 SPRAIN/STRAIN SHOULDER/ARM 12/31/2007 TRAE OBREGONMGINA 840.9 SPRAIN/STRAIN SHOULDER/ARM 12/31/2007 ROSE DO, GIGI K 840.9 SPRAIN/STRAIN SHOULDER/ARM 12/31/2007 KELSIE GILLESPIE, JENNIFER L 840.9 SPRAIN/STRAIN SHOULDER/ARM 12/31/2007 ALY PHD, JEN A 840.9 SPRAIN/STRAIN SHOULDER/ARM 12/31/2007 ROSE DO GIGI K 840.9 SPRAIN/STRAIN SHOULDER/ARM 12/31/2007 ALY PHD, JEN A 840.9 SPRAIN/STRAIN SHOULDER/ARM 12/31/2007 ALY PHD, JEN A 840.9 SPRAIN/STRAIN SHOULDER/ARM 01/22/2008 ALY PHD, JEN A 719.41 PAIN IN JOINT INVOLVING SHOULDER REGION 01/22/2008 719.41 PAIN IN JOINT INVOLVING SHOULDER REGION 01/22/2008 719.41 PAIN IN JOINT INVOLVING SHOULDER REGION 01/22/2008 JOSEFINA RODRIGUEZ MD 719.41 PAIN IN JOINT INVOLVING SHOULDER REGION 01/22/2008 719.41 PAIN IN JOINT INVOLVING SHOULDER REGION 01/22/2008 ALY BENITEZ, JEN Odom 719.41 PAIN IN JOINT INVOLVING SHOULDER REGION 01/22/2008 JOSEFINA RODRIGUEZ MD 719.41 PAIN IN JOINT INVOLVING SHOULDER REGION 01/22/2008 JENNIFER IGLESIAS APRN 719.41 PAIN IN JOINT INVOLVING SHOULDER REGION 01/22/2008 719.41 PAIN IN JOINT INVOLVING SHOULDER REGION 01/22/2008 JOSEFINA RODRIGUEZ MD 719.41 PAIN IN JOINT INVOLVING SHOULDER REGION 01/22/2008 JOSEFINA RODRIGUEZ MD 719.41 PAIN IN JOINT INVOLVING SHOULDER REGION 01/22/2008 719.41 PAIN IN JOINT INVOLVING SHOULDER REGION 01/22/2008 JOSEFINA RODRIGUEZ MD 719.41 PAIN IN JOINT INVOLVING SHOULDER REGION 01/22/2008 MOSHE BEAULIEU 719.41 PAIN IN JOINT INVOLVING SHOULDER REGION 01/22/2008 JENNIFER IGLESIAS APRN 719.41 PAIN IN JOINT INVOLVING SHOULDER REGION 01/22/2008 719.41 PAIN IN JOINT INVOLVING SHOULDER REGION 01/22/2008 719.41 PAIN IN JOINT INVOLVING SHOULDER REGION 01/22/2008 719.41 PAIN IN JOINT INVOLVING SHOULDER REGION 01/22/2008 719.41 PAIN IN JOINT INVOLVING SHOULDER REGION 01/22/2008 719.41 PAIN IN JOINT INVOLVING SHOULDER REGION 01/22/2008 719.41 PAIN IN JOINT INVOLVING SHOULDER REGION 01/22/2008 719.41 PAIN IN JOINT INVOLVING SHOULDER REGION 01/22/2008 719.41 PAIN IN JOINT INVOLVING SHOULDER REGION 01/22/2008 719.41 PAIN IN JOINT INVOLVING SHOULDER REGION 01/22/2008 719.41 PAIN IN JOINT INVOLVING SHOULDER REGION 01/22/2008 719.41 PAIN IN JOINT INVOLVING SHOULDER REGION 01/22/2008 719.41 PAIN IN JOINT INVOLVING SHOULDER REGION 01/22/2008 GIGI ROSE DO 719.41 PAIN IN JOINT INVOLVING SHOULDER REGION 01/22/2008 ALY BENITEZ, JEN Odom 719.41 PAIN IN JOINT INVOLVING SHOULDER REGION 01/22/2008 LATASHA GRIJALVA APRN 719.41 PAIN IN JOINT INVOLVING SHOULDER REGION 01/22/2008 GIGI ROSE DO 719.41 PAIN IN JOINT INVOLVING SHOULDER REGION 01/22/2008 JEN LU PHD 719.41 PAIN IN JOINT INVOLVING SHOULDER REGION 01/22/2008 GIGI ROSE DO 719.41 PAIN IN JOINT INVOLVING SHOULDER REGION 01/22/2008 JENNIFER IGLESIAS APRN 719.41 PAIN IN JOINT INVOLVING SHOULDER REGION 01/22/2008 JEN LU PHD 719.41 PAIN IN JOINT INVOLVING SHOULDER REGION 01/22/2008 JENNIFER IGLESIAS APRN 719.41 PAIN IN JOINT INVOLVING SHOULDER REGION 01/22/2008 JEN LU PHD 719.41 PAIN IN JOINT INVOLVING SHOULDER REGION 01/22/2008 JENNIFER IGLESIAS APRN 719.41 PAIN IN JOINT INVOLVING SHOULDER REGION 01/22/2008 JEN LU PHD 719.41 PAIN IN JOINT INVOLVING SHOULDER REGION 01/22/2008 GIGI ROSE DO 719.41 PAIN IN JOINT INVOLVING SHOULDER REGION 01/22/2008 JENNIFER IGLESIAS APRN 719.41 PAIN IN JOINT INVOLVING SHOULDER REGION 01/22/2008 JEN LU PHD 719.41 PAIN IN JOINT INVOLVING SHOULDER REGION 01/22/2008 GIGI ROSE DO 719.41 PAIN IN JOINT INVOLVING SHOULDER REGION 01/22/2008 JENNIFER IGLESIAS APRN 719.41 PAIN IN JOINT INVOLVING SHOULDER REGION 01/22/2008 JEN LU PHD 719.41 PAIN IN JOINT INVOLVING SHOULDER REGION 01/22/2008 JENNIFER IGLESIAS APRN 719.41 PAIN IN JOINT INVOLVING SHOULDER REGION 01/22/2008 JEN LU PHD 719.41 PAIN IN JOINT INVOLVING SHOULDER REGION 01/22/2008 JENNIFER IGLESIAS APRN 719.41 PAIN IN JOINT INVOLVING SHOULDER REGION 01/22/2008 GIGI ROSE DO 719.41 PAIN IN JOINT INVOLVING SHOULDER REGION 01/22/2008 JEN LU PHD 719.41 PAIN IN JOINT INVOLVING SHOULDER REGION 01/22/2008 GIGI ROSE DO 719.41 PAIN IN JOINT INVOLVING SHOULDER REGION 01/22/2008 JEN LU PHD 719.41 PAIN IN JOINT INVOLVING SHOULDER REGION 01/22/2008 JEN LU PHD 719.41 PAIN IN JOINT INVOLVING SHOULDER REGION 01/22/2008 GIGI ROSE DO K 719.41 PAIN IN JOINT INVOLVING SHOULDER REGION 01/22/2008 JEN LU PHD 719.41 PAIN IN JOINT INVOLVING SHOULDER REGION 01/22/2008 JENNIFER IGLESIAS APRN 719.41 PAIN IN JOINT INVOLVING SHOULDER REGION 01/22/2008 JEN LU PHD 719.41 PAIN IN JOINT INVOLVING SHOULDER REGION 01/22/2008 GINA ROBISON DPM 719.41 PAIN IN JOINT INVOLVING SHOULDER REGION 01/22/2008 GIGI ROSE DO K 719.41 PAIN IN JOINT INVOLVING SHOULDER REGION 01/22/2008 JENNIFER IGLESIAS APRN 719.41 PAIN IN JOINT INVOLVING SHOULDER REGION 01/22/2008 JEN LU PHD 719.41 PAIN IN JOINT INVOLVING SHOULDER REGION 01/22/2008 GIGI ROSE DO 719.41 PAIN IN JOINT INVOLVING SHOULDER REGION 01/22/2008 JEN LU PHD 719.41 PAIN IN JOINT INVOLVING SHOULDER REGION 01/22/2008 JEN LU PHD 719.41 PAIN IN JOINT INVOLVING SHOULDER REGION 02/22/2008 JEN LU PHD 338.4 CHRONIC PAIN SYNDROME 02/22/2008 JEN LU PHD 463 Tonsillitis Acute 02/22/2008 338.4 CHRONIC PAIN SYNDROME 02/22/2008 463 Tonsillitis Acute 02/22/2008 338.4 CHRONIC PAIN SYNDROME 02/22/2008 463 Tonsillitis Acute 02/22/2008 JOSEFINA RODRIGUEZ MD 338.4 CHRONIC PAIN SYNDROME 02/22/2008 JOSEFINA RODRIGUEZ MD 46Epi Tonsillitis Acute 02/22/2008 338.4 CHRONIC PAIN SYNDROME 02/22/2008 463 Tonsillitis Acute 02/22/2008 JEN LU PHD 338.4 CHRONIC PAIN SYNDROME 02/22/2008 JEN LU PHD 463 Tonsillitis Acute 02/22/2008 JOSEFINA RODRIGUEZ MD 338.4 CHRONIC PAIN SYNDROME 02/22/2008 JOSEFINA RODRIGUEZ MD 463 Tonsillitis Acute 02/22/2008 JENNIFER IGLESIAS APRN 338.4 CHRONIC PAIN SYNDROME 02/22/2008 JENNIFER IGLESIAS APRN 463 Tonsillitis Acute 02/22/2008 338.4 CHRONIC PAIN SYNDROME 02/22/2008 463 Tonsillitis Acute 02/22/2008 JOSEFINA RODRIGUEZ MD 338.4 CHRONIC PAIN SYNDROME 02/22/2008 JOSEFINA RODRIGUEZ MD 463 Tonsillitis Acute 02/22/2008 JOSEFINA RODRIGUEZ MD 338.4 CHRONIC PAIN SYNDROME 02/22/2008 JOSEFINA RODRIGUEZ MD 463 Tonsillitis Acute 02/22/2008 338.4 CHRONIC PAIN SYNDROME 02/22/2008 463 Tonsillitis Acute 02/22/2008 JOSEFINA RODRIGUEZ MD 338.4 CHRONIC PAIN SYNDROME 02/22/2008 JOSEFINA RODRIGUEZ MD 463 Tonsillitis Acute 02/22/2008 BAMOSHE ZHOU 338.4 CHRONIC PAIN SYNDROME 02/22/2008 MOSHE BEAULIEU 463 Tonsillitis Acute 02/22/2008 JENNIFER IGLESIAS APRN 338.4 CHRONIC PAIN SYNDROME 02/22/2008 JENNIFER IGLESIAS APRN 463 Tonsillitis Acute 02/22/2008 338.4 CHRONIC PAIN SYNDROME 02/22/2008 463 Tonsillitis Acute 02/22/2008 338.4 CHRONIC PAIN SYNDROME 02/22/2008 463 Tonsillitis Acute 02/22/2008 338.4 CHRONIC PAIN SYNDROME 02/22/2008 463 Tonsillitis Acute 02/22/2008 338.4 CHRONIC PAIN SYNDROME 02/22/2008 463 Tonsillitis Acute 02/22/2008 338.4 CHRONIC PAIN SYNDROME 02/22/2008 463 Tonsillitis Acute 02/22/2008 338.4 CHRONIC PAIN SYNDROME 02/22/2008 463 Tonsillitis Acute 02/22/2008 338.4 CHRONIC PAIN SYNDROME 02/22/2008 463 Tonsillitis Acute 02/22/2008 338.4 CHRONIC PAIN SYNDROME 02/22/2008 463 Tonsillitis Acute 02/22/2008 338.4 CHRONIC PAIN SYNDROME 02/22/2008 463 Tonsillitis Acute 02/22/2008 338.4 CHRONIC PAIN SYNDROME 02/22/2008 463 Tonsillitis Acute 02/22/2008 338.4 CHRONIC PAIN SYNDROME 02/22/2008 463 Tonsillitis Acute 02/22/2008 338.4 CHRONIC PAIN SYNDROME 02/22/2008 463 Tonsillitis Acute 02/22/2008 ROSE DO, GIGI K 338.4 CHRONIC PAIN SYNDROME 02/22/2008 ROSE DOGIGI K 463 Tonsillitis Acute 02/22/2008 JEN LU PHD 338.4 CHRONIC PAIN SYNDROME 02/22/2008 JEN LU PHD A 463 Tonsillitis Acute 02/22/2008 VALENTINE GILLESPIE, LATASHA S 338.4 CHRONIC PAIN SYNDROME 02/22/2008 VALENTINE APRN, LATASHA S 463 Tonsillitis Acute 02/22/2008 ROSE HERNANDEZDANIELA K 338.4 CHRONIC PAIN SYNDROME 02/22/2008 ROSE DO GIGI K 463 Tonsillitis Acute 02/22/2008 JEN LU PHD 338.4 CHRONIC PAIN SYNDROME 02/22/2008 JEN LU PHD A 463 Tonsillitis Acute 02/22/2008 ROSE DOGIGI K 338.4 CHRONIC PAIN SYNDROME 02/22/2008 ROSE DODANIELA K 463 Tonsillitis Acute 02/22/2008 JENNIFER IGLESIAS APRN L 338.4 CHRONIC PAIN SYNDROME 02/22/2008 EATENA GILLESPIE JENNIFER L 463 Tonsillitis Acute 02/22/2008 JEN LU PHD 338.4 CHRONIC PAIN SYNDROME 02/22/2008 JEN LU PHD A 463 Tonsillitis Acute 02/22/2008 EATENA GILLESPIE, JENNIFER L 338.4 CHRONIC PAIN SYNDROME 02/22/2008 EATENA GILLESPIE, JENNIFER L 463 Tonsillitis Acute 02/22/2008 JEN LU PHD A 338.4 CHRONIC PAIN SYNDROME 02/22/2008 JEN LU PHD A 463 Tonsillitis Acute 02/22/2008 EATENA RN BSN, JENNIFER L 338.4 CHRONIC PAIN SYNDROME 02/22/2008 EATON RN BSN, JENNIFER L 463 Tonsillitis Acute 02/22/2008 JEN LU PHD 338.4 CHRONIC PAIN SYNDROME 02/22/2008 JEN LU PHD A 463 Tonsillitis Acute 02/22/2008 ROSE DOGIGI K 338.4 CHRONIC PAIN SYNDROME 02/22/2008 ROSE DODANIELA K 463 Tonsillitis Acute 02/22/2008 EATENA RN BSN, JENNIFER L 338.4 CHRONIC PAIN SYNDROME 02/22/2008 EATON RN BSN, JENNIFER L 463 Tonsillitis Acute 02/22/2008 ALY BENITEZ, JEN A 338.4 CHRONIC PAIN SYNDROME 02/22/2008 ALY BENITEZ, JEN A 463 Tonsillitis Acute 02/22/2008 ROSE DODANIELA K 338.4 CHRONIC PAIN SYNDROME 02/22/2008 ROSE DO, GIGI K 463 Tonsillitis Acute 02/22/2008 EATON RN BSN, JENNIFER L 338.4 CHRONIC PAIN SYNDROME 02/22/2008 EATON RN BSN, JENNIFER L 463 Tonsillitis Acute 02/22/2008 BOEANSHUL BENITEZ, JEN A 338.4 CHRONIC PAIN SYNDROME 02/22/2008 ALY BENITEZ, JEN A 463 Tonsillitis Acute 02/22/2008 EATON RN BSN, JENNIFER L 338.4 CHRONIC PAIN SYNDROME 02/22/2008 EATON RN BSN, JENNIFER L 463 Tonsillitis Acute 02/22/2008 JEN LU PHD A 338.4 CHRONIC PAIN SYNDROME 02/22/2008 JEN LU PHD A 463 Tonsillitis Acute 02/22/2008 EATON RN BSN, JENNIFER L 338.4 CHRONIC PAIN SYNDROME 02/22/2008 EATON RN BSN, JENNIFER L 463 Tonsillitis Acute 02/22/2008 ROSE DODANIELA K 338.4 CHRONIC PAIN SYNDROME 02/22/2008 ROSE DO GIGI K 463 Tonsillitis Acute 02/22/2008 JEN LU PHD A 338.4 CHRONIC PAIN SYNDROME 02/22/2008 JEN LU PHD A 463 Tonsillitis Acute 02/22/2008 ROSE DO GIGI K 338.4 CHRONIC PAIN SYNDROME 02/22/2008 ROSE DO GIGI K 463 Tonsillitis Acute 02/22/2008 JEN LU PHD 338.4 CHRONIC PAIN SYNDROME 02/22/2008 JEN LU PHD A 463 Tonsillitis Acute 02/22/2008 JEN LU PHD 338.4 CHRONIC PAIN SYNDROME 02/22/2008 ALY BENITEZ, JEN A 463 Tonsillitis Acute 02/22/2008 ROSE DO GIGI K 338.4 CHRONIC PAIN SYNDROME 02/22/2008 ROSE DO GIGI K 463 Tonsillitis Acute 02/22/2008 JEN LU PHD 338.4 CHRONIC PAIN SYNDROME 02/22/2008 JEN LU PHD 463 Tonsillitis Acute 02/22/2008 EATON RN BSNJENNIFER Miles L 338.4 CHRONIC PAIN SYNDROME 02/22/2008 EATON RN BSN, JENNIFER L 463 Tonsillitis Acute 02/22/2008 JEN LU PHD 338.4 CHRONIC PAIN SYNDROME 02/22/2008 JEN LU PHD 463 Tonsillitis Acute 02/22/2008 TRAE DPM, GINA 338.4 CHRONIC PAIN SYNDROME 02/22/2008 TRAE DPM, GINA 463 Tonsillitis Acute 02/22/2008 ROSE DO, GIGI K 338.4 CHRONIC PAIN SYNDROME 02/22/2008 ROSE DO, GIGI K 463 Tonsillitis Acute 02/22/2008 EATENA RN BSN JENNIFER L 338.4 CHRONIC PAIN SYNDROME 02/22/2008 EATENA RN BSNJENNIFER Miles L 463 Tonsillitis Acute 02/22/2008 JEN LU PHD 338.4 CHRONIC PAIN SYNDROME 02/22/2008 JEN LU PHD 463 Tonsillitis Acute 02/22/2008 ROSE DO, GIGI K 338.4 CHRONIC PAIN SYNDROME 02/22/2008 ROSE DO, GIGI K 463 Tonsillitis Acute 02/22/2008 JEN LU PHD 338.4 CHRONIC PAIN SYNDROME 02/22/2008 JEN LU PHD 463 Tonsillitis Acute 02/22/2008 JEN LU PHD 338.4 CHRONIC PAIN SYNDROME 02/22/2008 JEN LU PHD 463 Tonsillitis Acute 03/19/2008 JEN LU PHD 716.90 ARTHRITIS 03/19/2008 JEN LU PHD 787.02 Nausea 03/19/2008 716.90 ARTHRITIS 03/19/2008 787.02 Nausea 03/19/2008 716.90 ARTHRITIS 03/19/2008 787.02 Nausea 03/19/2008 JOSEFINA RODRIGUEZ MD 716.90 ARTHRITIS 03/19/2008 JOSEFINA RODRIGUEZ MD 787.02 Nausea 03/19/2008 716.90 ARTHRITIS 03/19/2008 787.02 Nausea 03/19/2008 JEN LU PHD 716.90 ARTHRITIS 03/19/2008 ALY PHD, JEN Odom 787.02 Nausea 03/19/2008 JOSEFINA RODRIGUEZ MD 716.90 ARTHRITIS 03/19/2008 JOSEFINA RODRIGUEZ MD 787.02 Nausea 03/19/2008 BOBENA JOSE MIGUEL JENNIFER L 716.90 ARTHRITIS 03/19/2008 KELSIE JOSE MIGUEL JENNIFER L 787.02 Nausea 03/19/2008 716.90 ARTHRITIS 03/19/2008 787.02 Nausea 03/19/2008 JOSEFINA RODRIGUEZ MD 716.90 ARTHRITIS 03/19/2008 JOSEFINA RODRIGUEZ MD 787.02 Nausea 03/19/2008 JOSEFINA RODRIGUEZ MD 716.90 ARTHRITIS 03/19/2008 JOSEFINA RODRIGUEZ MD 787.02 Nausea 03/19/2008 716.90 ARTHRITIS 03/19/2008 787.02 Nausea 03/19/2008 JOSEFINA RODRIGUEZ MD 716.90 ARTHRITIS 03/19/2008 JOSEFINA RODRIGUEZ MD 787.02 Nausea 03/19/2008 MOSHE BEAULIEU 716.90 ARTHRITIS 03/19/2008 MOSHE BEAULIEU 787.02 Nausea 03/19/2008 KELSIE GILLESPIE JENNIFER L 716.90 ARTHRITIS 03/19/2008 KELSIE GILLESPIE JENNIFER L 787.02 Nausea 03/19/2008 716.90 ARTHRITIS 03/19/2008 787.02 Nausea 03/19/2008 716.90 ARTHRITIS 03/19/2008 787.02 Nausea 03/19/2008 716.90 ARTHRITIS 03/19/2008 787.02 Nausea 03/19/2008 716.90 ARTHRITIS 03/19/2008 787.02 Nausea 03/19/2008 716.90 ARTHRITIS 03/19/2008 787.02 Nausea 03/19/2008 716.90 ARTHRITIS 03/19/2008 787.02 Nausea 03/19/2008 716.90 ARTHRITIS 03/19/2008 787.02 Nausea 03/19/2008 716.90 ARTHRITIS 03/19/2008 787.02 Nausea 03/19/2008 716.90 ARTHRITIS 03/19/2008 787.02 Nausea 03/19/2008 716.90 ARTHRITIS 03/19/2008 787.02 Nausea 03/19/2008 716.90 ARTHRITIS 03/19/2008 787.02 Nausea 03/19/2008 716.90 ARTHRITIS 03/19/2008 787.02 Nausea 03/19/2008 ROSE DO GIGI K 716.90 ARTHRITIS 03/19/2008 ROSE DO GIGI K 787.02 Nausea 03/19/2008 ALY PHD, JEN A 716.90 ARTHRITIS 03/19/2008 ALY PHD, JEN A 787.02 Nausea 03/19/2008 VALENTINE RN BSN, LATASHA S 716.90 ARTHRITIS 03/19/2008 VALENTINE RN BSN, LATASHA S 787.02 Nausea 03/19/2008 ROSE DO GIGI K 716.90 ARTHRITIS 03/19/2008 ROSE DO GIGI K 787.02 Nausea 03/19/2008 ALY PHD, JEN A 716.90 ARTHRITIS 03/19/2008 ALY PHD, JEN A 787.02 Nausea 03/19/2008 ROSE DODANIELA K 716.90 ARTHRITIS 03/19/2008 ROSE DODANIELA K 787.02 Nausea 03/19/2008 EATON RN BSN, JENNIFER L 716.90 ARTHRITIS 03/19/2008 EATON RN BSN, JENNIFER L 787.02 Nausea 03/19/2008 ALY PHD, JEN A 716.90 ARTHRITIS 03/19/2008 ALY PHD, JEN A 787.02 Nausea 03/19/2008 EATON RN BSN, JENNIFER L 716.90 ARTHRITIS 03/19/2008 EATON RN BSN, JENNIFER L 787.02 Nausea 03/19/2008 ALY BENITEZ, JEN A 716.90 ARTHRITIS 03/19/2008 ALY PHD, JEN A 787.02 Nausea 03/19/2008 EATON RN BSN, JENNIFER L 716.90 ARTHRITIS 03/19/2008 EATON RN BSN, JENNIFER L 787.02 Nausea 03/19/2008 ALY BENITEZ, JEN A 716.90 ARTHRITIS 03/19/2008 ALY PHD, JEN A 787.02 Nausea 03/19/2008 ROSE DO GIGI K 716.90 ARTHRITIS 03/19/2008 ROSE DO GIGI K 787.02 Nausea 03/19/2008 EATON RN BSN, JENNIFER L 716.90 ARTHRITIS 03/19/2008 EATON RN BSN, JENNIFER L 787.02 Nausea 03/19/2008 BOEANSHUL PHD, JEN A 716.90 ARTHRITIS 03/19/2008 BOEANSHUL PHD, JEN A 787.02 Nausea 03/19/2008 ROSE DODANIELA K 716.90 ARTHRITIS 03/19/2008 ROSE DODANIELA K 787.02 Nausea 03/19/2008 EATON RN BSN, JENNIFER L 716.90 ARTHRITIS 03/19/2008 EATON RN BSN, JENNIFER L 787.02 Nausea 03/19/2008 BOEANSHUL PHD, JEN A 716.90 ARTHRITIS 03/19/2008 BOEANSHUL PHD, JEN A 787.02 Nausea 03/19/2008 EATON JENNIFER GILLESPIE L 716.90 ARTHRITIS 03/19/2008 EATON RN BSN, JENNIFER L 787.02 Nausea 03/19/2008 ALY PHD, JEN A 716.90 ARTHRITIS 03/19/2008 ALY BENITEZ, JEN A 787.02 Nausea 03/19/2008 EATON RN BSNJENNIFER L 716.90 ARTHRITIS 03/19/2008 EATON RN BSNJENNIFER Miles L 787.02 Nausea 03/19/2008 ROSE DODANIELA K 716.90 ARTHRITIS 03/19/2008 ROSE DODANIELA K 787.02 Nausea 03/19/2008 ALY PHD, JEN A 716.90 ARTHRITIS 03/19/2008 BOEANSHUL PHD, JEN A 787.02 Nausea 03/19/2008 ROSE DODANIELA K 716.90 ARTHRITIS 03/19/2008 ROSE DO GIGI K 787.02 Nausea 03/19/2008 BOEANSHUL PHD, JEN A 716.90 ARTHRITIS 03/19/2008 BOEANSHUL PHD, JEN A 787.02 Nausea 03/19/2008 BOEANSHUL PHD, JEN A 716.90 ARTHRITIS 03/19/2008 ALY PHD, JEN A 787.02 Nausea 03/19/2008 ROSE DO GIGI K 716.90 ARTHRITIS 03/19/2008 ROSE DO GIGI K 787.02 Nausea 03/19/2008 ALY BENITEZ, JEN A 716.90 ARTHRITIS 03/19/2008 ALY PHD, JEN A 787.02 Nausea 03/19/2008 EATENA RN BSN, JENNIFER L 716.90 ARTHRITIS 03/19/2008 EATON RN BSN, JENNIFER L 787.02 Nausea 03/19/2008 ALY BENITEZ, JEN Odom 716.90 ARTHRITIS 03/19/2008 ALY BENITEZ, JEN Odom 787.02 Nausea 03/19/2008 TRAE DPM, GINA 716.90 ARTHRITIS 03/19/2008 TRAE DPM, GINA 787.02 Nausea 03/19/2008 ROSE DO, GIGI K 716.90 ARTHRITIS 03/19/2008 ROSE DO, GIGI K 787.02 Nausea 03/19/2008 EATON RN BSN, JENNIFER L 716.90 ARTHRITIS 03/19/2008 EATON RN BSN, JENNIFER L 787.02 Nausea 03/19/2008 ALY BENITEZ, JEN Odom 716.90 ARTHRITIS 03/19/2008 ALY BENITEZ, JEN Odom 787.02 Nausea 03/19/2008 ROSE DO, GIGI K 716.90 ARTHRITIS 03/19/2008 ROSE DO, GIGI K 787.02 Nausea 03/19/2008 ALY BENITEZ, JEN Odom 716.90 ARTHRITIS 03/19/2008 ALY BENITEZ, JEN Odom 787.02 Nausea 03/19/2008 ALY BENITEZ, JEN Odom 716.90 ARTHRITIS 03/19/2008 JEN LU PHD 787.02 Nausea 07/15/2008 JEN LU PHD 272.1 HYPERTRIGLYCERIDEMIA 07/15/2008 JEN LU PHD 536.8 DYSPEPSIA 07/15/2008 272.1 HYPERTRIGLYCERIDEMIA 07/15/2008 536.8 DYSPEPSIA 07/15/2008 272.1 HYPERTRIGLYCERIDEMIA 07/15/2008 536.8 DYSPEPSIA 07/15/2008 JOSEFINA RODRIGUEZ MD 272.1 HYPERTRIGLYCERIDEMIA 07/15/2008 JOSEFINA RODRIGUEZ MD 536.8 DYSPEPSIA 07/15/2008 272.1 HYPERTRIGLYCERIDEMIA 07/15/2008 536.8 DYSPEPSIA 07/15/2008 JEN LU PHD 272.1 HYPERTRIGLYCERIDEMIA 07/15/2008 JEN LU PHD 536.8 DYSPEPSIA 07/15/2008 JOSEFINA RODRIGUEZ MD 272.1 HYPERTRIGLYCERIDEMIA 07/15/2008 JOSEFINA RODRIGUEZ MD 536.8 DYSPEPSIA 07/15/2008 JENNIFER IGLESIAS APRN L 272.1 HYPERTRIGLYCERIDEMIA 07/15/2008 YINKA IGLESIAS APRNSON L 536.8 DYSPEPSIA 07/15/2008 272.1 HYPERTRIGLYCERIDEMIA 07/15/2008 536.8 DYSPEPSIA 07/15/2008 JOSEFINA RODRIGUEZ MD 272.1 HYPERTRIGLYCERIDEMIA 07/15/2008 JOSEFINA RODRIGUEZ MD 536.8 DYSPEPSIA 07/15/2008 JOSEFINA RODRIGUEZ MD 272.1 HYPERTRIGLYCERIDEMIA 07/15/2008 JOSEFINA RODRIGUEZ MD 536.8 DYSPEPSIA 07/15/2008 272.1 HYPERTRIGLYCERIDEMIA 07/15/2008 536.8 DYSPEPSIA 07/15/2008 JOSEFINA RODRIGUEZ MD 272.1 HYPERTRIGLYCERIDEMIA 07/15/2008 JOSEFINA RODRIGUEZ MD 536.8 DYSPEPSIA 07/15/2008 BAQIR, MOSHE 272.1 HYPERTRIGLYCERIDEMIA 07/15/2008 BAQIR, MOSHE 536.8 DYSPEPSIA 07/15/2008 JENNIFER IGLESISA APRN L 272.1 HYPERTRIGLYCERIDEMIA 07/15/2008 JENNIFER IGLESIAS APRN L 536.8 DYSPEPSIA 07/15/2008 272.1 HYPERTRIGLYCERIDEMIA 07/15/2008 536.8 DYSPEPSIA 07/15/2008 272.1 HYPERTRIGLYCERIDEMIA 07/15/2008 536.8 DYSPEPSIA 07/15/2008 272.1 HYPERTRIGLYCERIDEMIA 07/15/2008 536.8 DYSPEPSIA 07/15/2008 272.1 HYPERTRIGLYCERIDEMIA 07/15/2008 536.8 DYSPEPSIA 07/15/2008 272.1 HYPERTRIGLYCERIDEMIA 07/15/2008 536.8 DYSPEPSIA 07/15/2008 272.1 HYPERTRIGLYCERIDEMIA 07/15/2008 536.8 DYSPEPSIA 07/15/2008 272.1 HYPERTRIGLYCERIDEMIA 07/15/2008 536.8 DYSPEPSIA 07/15/2008 272.1 HYPERTRIGLYCERIDEMIA 07/15/2008 536.8 DYSPEPSIA 07/15/2008 272.1 HYPERTRIGLYCERIDEMIA 07/15/2008 536.8 DYSPEPSIA 07/15/2008 272.1 HYPERTRIGLYCERIDEMIA 07/15/2008 536.8 DYSPEPSIA 07/15/2008 272.1 HYPERTRIGLYCERIDEMIA 07/15/2008 536.8 DYSPEPSIA 07/15/2008 272.1 HYPERTRIGLYCERIDEMIA 07/15/2008 536.8 DYSPEPSIA 07/15/2008 ROSE DO, GIGI K 272.1 HYPERTRIGLYCERIDEMIA 07/15/2008 ROSE DO, GIGI K 536.8 DYSPEPSIA 07/15/2008 ALY PHD, JEN A 272.1 HYPERTRIGLYCERIDEMIA 07/15/2008 ALY PHD, JEN A 536.8 DYSPEPSIA 07/15/2008 VALENTINE RN BSN, LATASHA S 272.1 HYPERTRIGLYCERIDEMIA 07/15/2008 VALENTINE RN BSN, LATASHA S 536.8 DYSPEPSIA 07/15/2008 ROSE DO, GIGI K 272.1 HYPERTRIGLYCERIDEMIA 07/15/2008 ROSE DO, GIGI K 536.8 DYSPEPSIA 07/15/2008 ALY PHD, JEN A 272.1 HYPERTRIGLYCERIDEMIA 07/15/2008 ALY PHD, JEN A 536.8 DYSPEPSIA 07/15/2008 ROSE DO GIGI K 272.1 HYPERTRIGLYCERIDEMIA 07/15/2008 ROSE DO, GIGI K 536.8 DYSPEPSIA 07/15/2008 EATENA GILLESPIE, JENNIFER L 272.1 HYPERTRIGLYCERIDEMIA 07/15/2008 EATENA GILLESPIE, JENNIFER L 536.8 DYSPEPSIA 07/15/2008 ALY PHD, JEN A 272.1 HYPERTRIGLYCERIDEMIA 07/15/2008 ALY PHD, JEN A 536.8 DYSPEPSIA 07/15/2008 EATON JOSE MIGUEL, JENNIFER L 272.1 HYPERTRIGLYCERIDEMIA 07/15/2008 EATENA GILLESPIE, JENNIFER L 536.8 DYSPEPSIA 07/15/2008 ALY PHD, JEN A 272.1 HYPERTRIGLYCERIDEMIA 07/15/2008 ALY PHD, JEN A 536.8 DYSPEPSIA 07/15/2008 EATON JOSE MIGUEL, JENNIFER L 272.1 HYPERTRIGLYCERIDEMIA 07/15/2008 EATON JOSE MIGUEL, JENNIFER L 536.8 DYSPEPSIA 07/15/2008 ALY PHD, JEN A 272.1 HYPERTRIGLYCERIDEMIA 07/15/2008 ALY PHD, JEN A 536.8 DYSPEPSIA 07/15/2008 ROSE DO GIGI K 272.1 HYPERTRIGLYCERIDEMIA 07/15/2008 ROSE DO, GIGI K 536.8 DYSPEPSIA 07/15/2008 EATON RN BSN, JENNIFER L 272.1 HYPERTRIGLYCERIDEMIA 07/15/2008 EATON RN BSN, JENNIFER L 536.8 DYSPEPSIA 07/15/2008 BOEANSHUL PHD, JEN A 272.1 HYPERTRIGLYCERIDEMIA 07/15/2008 BOEANSHUL PHD, JEN A 536.8 DYSPEPSIA 07/15/2008 ROSE DO, GIGI K 272.1 HYPERTRIGLYCERIDEMIA 07/15/2008 ORSE DO, GIGI K 536.8 DYSPEPSIA 07/15/2008 EATON RN BSN, JENNIFER L 272.1 HYPERTRIGLYCERIDEMIA 07/15/2008 EATON RN BSN, JENNIFER L 536.8 DYSPEPSIA 07/15/2008 BOEANSHUL PHD, JEN A 272.1 HYPERTRIGLYCERIDEMIA 07/15/2008 BOEANSHUL PHD, JEN A 536.8 DYSPEPSIA 07/15/2008 EATON RN BSN, JENNIFER L 272.1 HYPERTRIGLYCERIDEMIA 07/15/2008 EATON RN BSN, JENNIFER L 536.8 DYSPEPSIA 07/15/2008 BOEANSHUL PHD, JEN A 272.1 HYPERTRIGLYCERIDEMIA 07/15/2008 BOEANSHUL PHD, JEN A 536.8 DYSPEPSIA 07/15/2008 EATON RN BSN, JENNIFER L 272.1 HYPERTRIGLYCERIDEMIA 07/15/2008 EATON RN BSN, JENNIFER L 536.8 DYSPEPSIA 07/15/2008 ROSE DO, GIGI K 272.1 HYPERTRIGLYCERIDEMIA 07/15/2008 ROSE DO, GIGI K 536.8 DYSPEPSIA 07/15/2008 BOEANSHUL PHD, JEN A 272.1 HYPERTRIGLYCERIDEMIA 07/15/2008 BOEANSHUL PHD, JEN A 536.8 DYSPEPSIA 07/15/2008 ROSE DO, GIGI K 272.1 HYPERTRIGLYCERIDEMIA 07/15/2008 ROSE DO, GIGI K 536.8 DYSPEPSIA 07/15/2008 BOEANSHUL PHD, JEN A 272.1 HYPERTRIGLYCERIDEMIA 07/15/2008 BOEANSHUL PHD, JEN A 536.8 DYSPEPSIA 07/15/2008 BOEANSHUL PHD, JEN A 272.1 HYPERTRIGLYCERIDEMIA 07/15/2008 BOEANSHUL PHD, JEN A 536.8 DYSPEPSIA 07/15/2008 ROSE DO, GIGI K 272.1 HYPERTRIGLYCERIDEMIA 07/15/2008 ROSE DO, GIGI K 536.8 DYSPEPSIA 07/15/2008 BOEANSHUL PHD, JEN A 272.1 HYPERTRIGLYCERIDEMIA 07/15/2008 BOEANSHUL PHD, JEN A 536.8 DYSPEPSIA 07/15/2008 EATON RN BSN, JENNIFER L 272.1 HYPERTRIGLYCERIDEMIA 07/15/2008 EATON RN BSN, JENNIFER L 536.8 DYSPEPSIA 07/15/2008 BOEANSHUL PHD, JEN A 272.1 HYPERTRIGLYCERIDEMIA 07/15/2008 BOEANSHUL PHD, JEN A 536.8 DYSPEPSIA 07/15/2008 TRAE DPM, GINA 272.1 HYPERTRIGLYCERIDEMIA 07/15/2008 TRAE DPM, GINA 536.8 DYSPEPSIA 07/15/2008 ROSE DO, GIGI K 272.1 HYPERTRIGLYCERIDEMIA 07/15/2008 ROSE DO, GIGI K 536.8 DYSPEPSIA 07/15/2008 EATON RN BSN, JENNIFER L 272.1 HYPERTRIGLYCERIDEMIA 07/15/2008 EATON RN BSN, JENNIFER L 536.8 DYSPEPSIA 07/15/2008 BOEANSHUL PHD, JEN A 272.1 HYPERTRIGLYCERIDEMIA 07/15/2008 BOEANSHUL BENITEZ, JEN A 536.8 DYSPEPSIA 07/15/2008 ROSE DO, GIGI K 272.1 HYPERTRIGLYCERIDEMIA 07/15/2008 ROSE DO, GIGI K 536.8 DYSPEPSIA 07/15/2008 BOEANSHUL PHD, JEN A 272.1 HYPERTRIGLYCERIDEMIA 07/15/2008 BOEANSHUL PHD, JEN A 536.8 DYSPEPSIA 07/15/2008 BOEANSHUL PHD, JEN A 272.1 HYPERTRIGLYCERIDEMIA 07/15/2008 BOEANSHUL BENITEZ, JEN A 536.8 DYSPEPSIA 10/17/2008 JEN LU PHD 346.20 Variants Of Migraine Without Intractable Migraine 10/17/2008 346.20 Variants Of Migraine Without Intractable Migraine 10/17/2008 346.20 Variants Of Migraine Without Intractable Migraine 10/17/2008 JENNIFER SANDERSON, JOSEFINA 346.20 Variants Of Migraine Without Intractable Migraine 10/17/2008 346.20 Variants Of Migraine Without Intractable Migraine 10/17/2008 JEN LU PHD 346.20 Variants Of Migraine Without Intractable Migraine 10/17/2008 JOSEFINA RODRIGUEZ MD 346.20 Variants Of Migraine Without Intractable Migraine 10/17/2008 JENNIFER IGLESIAS APRN 346.20 Variants Of Migraine Without Intractable Migraine 10/17/2008 346.20 Variants Of Migraine Without Intractable Migraine 10/17/2008 JOSEFINA RODRIGUEZ MD 346.20 Variants Of Migraine Without Intractable Migraine 10/17/2008 JOSEFINA RODRIGUEZ MD 346.20 Variants Of Migraine Without Intractable Migraine 10/17/2008 346.20 Variants Of Migraine Without Intractable Migraine 10/17/2008 JOSEFINA RODRIGUEZ MD 346.20 Variants Of Migraine Without Intractable Migraine 10/17/2008 BAMOSHE ZHOU 346.20 Variants Of Migraine Without Intractable Migraine 10/17/2008 JENNIFER IGLESIAS APRN 346.20 Variants Of Migraine Without Intractable Migraine 10/17/2008 346.20 Variants Of Migraine Without Intractable Migraine 10/17/2008 346.20 Variants Of Migraine Without Intractable Migraine 10/17/2008 346.20 Variants Of Migraine Without Intractable Migraine 10/17/2008 346.20 Variants Of Migraine Without Intractable Migraine 10/17/2008 346.20 Variants Of Migraine Without Intractable Migraine 10/17/2008 346.20 Variants Of Migraine Without Intractable Migraine 10/17/2008 346.20 Variants Of Migraine Without Intractable Migraine 10/17/2008 346.20 Variants Of Migraine Without Intractable Migraine 10/17/2008 346.20 Variants Of Migraine Without Intractable Migraine 10/17/2008 346.20 Variants Of Migraine Without Intractable Migraine 10/17/2008 346.20 Variants Of Migraine Without Intractable Migraine 10/17/2008 346.20 Variants Of Migraine Without Intractable Migraine 10/17/2008 GIGI ROSE DO 346.20 Variants Of Migraine Without Intractable Migraine 10/17/2008 JEN LU PHD 346.20 Variants Of Migraine Without Intractable Migraine 10/17/2008 LATASHA GRIJALVA APRN S 346.20 Variants Of Migraine Without Intractable Migraine 10/17/2008 GIGI ROSE DO K 346.20 Variants Of Migraine Without Intractable Migraine 10/17/2008 JEN LU PHD 346.20 Variants Of Migraine Without Intractable Migraine 10/17/2008 DANIEL ROSE DOA K 346.20 Variants Of Migraine Without Intractable Migraine 10/17/2008 JENNIFER IGLESIAS APRN 346.20 Variants Of Migraine Without Intractable Migraine 10/17/2008 JEN LU PHD 346.20 Variants Of Migraine Without Intractable Migraine 10/17/2008 EATON RN BSN, JENNIFER L 346.20 Variants Of Migraine Without Intractable Migraine 10/17/2008 [facility] , JEN A 346.20 Variants Of Migraine Without Intractable Migraine 10/17/2008 EATON RN BSN, JENNIFER L 346.20 Variants Of Migraine Without Intractable Migraine 10/17/2008 [facility] , JEN A 346.20 Variants Of Migraine Without Intractable Migraine 10/17/2008 GIGI ROSE DO K 346.20 Variants Of Migraine Without Intractable Migraine 10/17/2008 EATON RN BSN, JENNIFER L 346.20 Variants Of Migraine Without Intractable Migraine 10/17/2008 [facility] JEN BENITEZ A 346.20 Variants Of Migraine Without Intractable Migraine 10/17/2008 GIGI ROSE DO K 346.20 Variants Of Migraine Without Intractable Migraine 10/17/2008 EATON RN BSN, JENNIFER L 346.20 Variants Of Migraine Without Intractable Migraine 10/17/2008 [facility] JEN BENITEZ A 346.20 Variants Of Migraine Without Intractable Migraine 10/17/2008 EATON RN BSN, JENNIFER L 346.20 Variants Of Migraine Without Intractable Migraine 10/17/2008 [facility] , JEN A 346.20 Variants Of Migraine Without Intractable Migraine 10/17/2008 EATON RN BSN, JENNIFER L 346.20 Variants Of Migraine Without Intractable Migraine 10/17/2008 DANIEL ROSE DOA K 346.20 Variants Of Migraine Without Intractable Migraine 10/17/2008 [facility] JEN BENITEZ A 346.20 Variants Of Migraine Without Intractable Migraine 10/17/2008 DANIEL ROSE DOA K 346.20 Variants Of Migraine Without Intractable Migraine 10/17/2008 [facility] JEN BENITEZ A 346.20 Variants Of Migraine Without Intractable Migraine 10/17/2008 [facility] JEN BENITEZ A 346.20 Variants Of Migraine Without Intractable Migraine 10/17/2008 DANIEL ROSE DOA K 346.20 Variants Of Migraine Without Intractable Migraine 10/17/2008 [facility] JEN BENITEZ A 346.20 Variants Of Migraine Without Intractable Migraine 10/17/2008 EATON RN BSN, JENNIFER L 346.20 Variants Of Migraine Without Intractable Migraine 10/17/2008 [facility] JEN BENITEZ A 346.20 Variants Of Migraine Without Intractable Migraine 10/17/2008 TRAE DPM, GINA 346.20 Variants Of Migraine Without Intractable Migraine 10/17/2008 ROSE DOGIGI K 346.20 Variants Of Migraine Without Intractable Migraine 10/17/2008 JENNIFER IGLESIAS APRN 346.20 Variants Of Migraine Without Intractable Migraine 10/17/2008 ALY BENITEZ, JEN Odom 346.20 Variants Of Migraine Without Intractable Migraine 10/17/2008 ROSE DOGIGI 346.20 Variants Of Migraine Without Intractable Migraine 10/17/2008 ALY BENITEZ, JEN Odom 346.20 Variants Of Migraine Without Intractable Migraine 10/17/2008 ALY BENITEZ, JEN Odom 346.20 Variants Of Migraine Without Intractable Migraine 12/30/2008 ALY BENITEZ, JEN Odom 380.10 Otitis Externa 12/30/2008 380.10 Otitis Externa 12/30/2008 380.10 Otitis Externa 12/30/2008 JENNIFER SANDERSON, JOSEFINA 380.10 Otitis Externa 12/30/2008 380.10 Otitis Externa 12/30/2008 ALY BENITEZ, JEN Odom 380.10 Otitis Externa 12/30/2008 JENNIFER SANDERSON, JOSEFINA 380.10 Otitis Externa 12/30/2008 JENNIFER IGLESIAS APRN 380.10 Otitis Externa 12/30/2008 380.10 Otitis Externa 12/30/2008 JENNIFER SANDERSON, JOSEFINA 380.10 Otitis Externa 12/30/2008 JOSEFINA RODRIGUEZ MD 380.10 Otitis Externa 12/30/2008 380.10 Otitis Externa 12/30/2008 JENNIFER SANDERSON, JOSEFINA 380.10 Otitis Externa 12/30/2008 MOSHE BEAULIEU 380.10 Otitis Externa 12/30/2008 JENNIFER IGLESIAS APRN 380.10 Otitis Externa 12/30/2008 380.10 Otitis Externa 12/30/2008 380.10 Otitis Externa 12/30/2008 380.10 Otitis Externa 12/30/2008 380.10 Otitis Externa 12/30/2008 380.10 Otitis Externa 12/30/2008 380.10 Otitis Externa 12/30/2008 380.10 Otitis Externa 12/30/2008 380.10 Otitis Externa 12/30/2008 380.10 Otitis Externa 12/30/2008 380.10 Otitis Externa 12/30/2008 380.10 Otitis Externa 12/30/2008 380.10 Otitis Externa 12/30/2008 ROSE HERNANDEZ GIGI K 380.10 Otitis Externa 12/30/2008 [facility] PHD, JEN A 380.10 Otitis Externa 12/30/2008 LATASHA GRIJALVA APRN 380.10 Otitis Externa 12/30/2008 ROSE DO, GIGI K 380.10 Otitis Externa 12/30/2008 BOEGIGIOUT PHD, JEN A 380.10 Otitis Externa 12/30/2008 ROSE DO, GIIG K 380.10 Otitis Externa 12/30/2008 EATON RN BSN, JENNIFER L 380.10 Otitis Externa 12/30/2008 BOEGIGIOUT PHD, JEN A 380.10 Otitis Externa 12/30/2008 EATON RN BSN, JENNIFER L 380.10 Otitis Externa 12/30/2008 [facility] PHD, JEN A 380.10 Otitis Externa 12/30/2008 EATON RN BSN, JENNIFER L 380.10 Otitis Externa 12/30/2008 [facility] PHD, JEN A 380.10 Otitis Externa 12/30/2008 ROSE DO, GIGI K 380.10 Otitis Externa 12/30/2008 EATON RN BSN, JENNIFER L 380.10 Otitis Externa 12/30/2008 [facility] PHD, JEN A 380.10 Otitis Externa 12/30/2008 ROSE HERNANDEZ, GIGI K 380.10 Otitis Externa 12/30/2008 EATON RN BSN, JENNIFER L 380.10 Otitis Externa 12/30/2008 [facility] PHD, JEN A 380.10 Otitis Externa 12/30/2008 EATON RN BSN, JENNIFER L 380.10 Otitis Externa 12/30/2008 [facility] PHD, JEN A 380.10 Otitis Externa 12/30/2008 EATON RN BSN, JENNIFER L 380.10 Otitis Externa 12/30/2008 ROSE HERNANDEZ, GIGI K 380.10 Otitis Externa 12/30/2008 [facility] PHD, JEN A 380.10 Otitis Externa 12/30/2008 ROSE HERNANDEZ, GIGI K 380.10 Otitis Externa 12/30/2008 [facility] PHD, JEN A 380.10 Otitis Externa 12/30/2008 [facility] PHD, JEN A 380.10 Otitis Externa 12/30/2008 ROSE HERNANDEZ, GIGI K 380.10 Otitis Externa 12/30/2008 ALY PHD, JEN A 380.10 Otitis Externa 12/30/2008 KELSIE RN BSN, JENNIFER L 380.10 Otitis Externa 12/30/2008 ALY PHD, JEN A 380.10 Otitis Externa 12/30/2008 TRAE DPM, GINA 380.10 Otitis Externa 12/30/2008 ROSE DO, GIGI K 380.10 Otitis Externa 12/30/2008 EATENA RN BSN, JENNIFER L 380.10 Otitis Externa 12/30/2008 ALY PHD, JEN A 380.10 Otitis Externa 12/30/2008 ROSE DO, GIGI K 380.10 Otitis Externa 12/30/2008 ALY PHD, JEN A 380.10 Otitis Externa 12/30/2008 ALY PHD, JEN A 380.10 Otitis Externa 01/19/2009 ALY PHD, JEN A 278.02 Overweight 01/19/2009 ALY PHD, JEN A 357.9 NEUROPATHY UNSP 01/19/2009 ALY PHD, JEN A 492.8 EMPHYSEMA OTHER 01/19/2009 ALY PHD, JEN A 530.81 ESOPHAGEAL REFLUX 01/19/2009 ALY PHD, JEN A 724.5 BACKACHE UNSPECIFIED 01/19/2009 ALY PHD, JEN A 786.2 Cough 01/19/2009 278.02 Overweight 01/19/2009 357.9 NEUROPATHY UNSP 01/19/2009 492.8 EMPHYSEMA OTHER 01/19/2009 530.81 ESOPHAGEAL REFLUX 01/19/2009 724.5 BACKACHE UNSPECIFIED 01/19/2009 786.2 Cough 01/19/2009 278.02 Overweight 01/19/2009 357.9 NEUROPATHY UNSP 01/19/2009 492.8 EMPHYSEMA OTHER 01/19/2009 530.81 ESOPHAGEAL REFLUX 01/19/2009 724.5 BACKACHE UNSPECIFIED 01/19/2009 786.2 Cough 01/19/2009 JENNIFER SANDERSON, JOSEFINA 278.02 Overweight 01/19/2009 JENNIFER SANDERSON, JOSEFINA 357.9 NEUROPATHY UNSP 01/19/2009 JOSEFINA RODRIGUEZ MD 492.8 EMPHYSEMA OTHER 01/19/2009 JOSEFINA RODRIGUEZ MD 530.81 ESOPHAGEAL REFLUX 01/19/2009 JOSEFINA RODRIGUEZ MD 724.5 BACKACHE UNSPECIFIED 01/19/2009 JOSEFINA RODRIGUEZ MD 786.2 Cough 01/19/2009 278.02 Overweight 01/19/2009 357.9 NEUROPATHY UNSP 01/19/2009 492.8 EMPHYSEMA OTHER 01/19/2009 530.81 ESOPHAGEAL REFLUX 01/19/2009 724.5 BACKACHE UNSPECIFIED 01/19/2009 786.2 Cough 01/19/2009 ALY PHD, JEN A 278.02 Overweight 01/19/2009 ALY PHD, JEN A 357.9 NEUROPATHY UNSP 01/19/2009 [facility] PHD, JEN A 492.8 EMPHYSEMA OTHER 01/19/2009 [facility] PHD, JEN A 530.81 ESOPHAGEAL REFLUX 01/19/2009 ALY PHD, JEN A 724.5 BACKACHE UNSPECIFIED 01/19/2009 ALY PHD, JEN A 786.2 Cough 01/19/2009 JOSEFINA RODRIGUEZ MD 278.02 Overweight 01/19/2009 JOSEFINA RODRIGUEZ MD 357.9 NEUROPATHY UNSP 01/19/2009 JOSEFINA RODRIGUEZ MD 492.8 EMPHYSEMA OTHER 01/19/2009 JOSEFINA RODRIGUEZ MD 530.81 ESOPHAGEAL REFLUX 01/19/2009 JOSEFINA RODRIGUEZ MD 724.5 BACKACHE UNSPECIFIED 01/19/2009 JOSEFINA RODRIGUEZ MD 786.2 Cough 01/19/2009 EATON RN BSN, JENNIFER L 278.02 Overweight 01/19/2009 EATON RN BSN, JENNIFER L 357.9 NEUROPATHY UNSP 01/19/2009 EATON RN BSN, JENNIFER L 492.8 EMPHYSEMA OTHER 01/19/2009 EATON RN BSN, JENNIFER L 530.81 ESOPHAGEAL REFLUX 01/19/2009 EATON RN BSN, JENNIFER L 724.5 BACKACHE UNSPECIFIED 01/19/2009 EATON RN BSN, JENNIFER L 786.2 Cough 01/19/2009 278.02 Overweight 01/19/2009 357.9 NEUROPATHY UNSP 01/19/2009 492.8 EMPHYSEMA OTHER 01/19/2009 530.81 ESOPHAGEAL REFLUX 01/19/2009 724.5 BACKACHE UNSPECIFIED 01/19/2009 786.2 Cough 01/19/2009 JOSEFINA RODRIGUEZ MD 278.02 Overweight 01/19/2009 JOSEFINA RODRIGUEZ MD 357.9 NEUROPATHY UNSP 01/19/2009 JOSEFINA RODRIGUEZ MD 492.8 EMPHYSEMA OTHER 01/19/2009 JOSEFINA RODRIGUEZ MD 530.81 ESOPHAGEAL REFLUX 01/19/2009 JOSEFINA RODRIGUEZ MD 724.5 BACKACHE UNSPECIFIED 01/19/2009 JOSEFINA RODRIGUEZ MD 786.2 Cough 01/19/2009 JOSEFINA RODRIGUEZ MD 278.02 Overweight 01/19/2009 JOSEFINA RODRIGUEZ MD 357.9 NEUROPATHY UNSP 01/19/2009 JOSEFINA RODRIGUEZ MD 492.8 EMPHYSEMA OTHER 01/19/2009 JENNIFER SANDERSON, JOSEFINA 530.81 ESOPHAGEAL REFLUX 01/19/2009 JOSEFINA RODRIGUEZ MD 724.5 BACKACHE UNSPECIFIED 01/19/2009 JOSEFINA RODRIGUEZ MD 786.2 Cough 01/19/2009 278.02 Overweight 01/19/2009 357.9 NEUROPATHY UNSP 01/19/2009 492.8 EMPHYSEMA OTHER 01/19/2009 530.81 ESOPHAGEAL REFLUX 01/19/2009 724.5 BACKACHE UNSPECIFIED 01/19/2009 786.2 Cough 01/19/2009 JOSEFINA RODRIGUEZ MD 278.02 Overweight 01/19/2009 JOSEFINA RODRIGUEZ MD 357.9 NEUROPATHY UNSP 01/19/2009 JOSEFINA RODRIGUEZ MD 492.8 EMPHYSEMA OTHER 01/19/2009 JOSEFINA RODRIGUEZ MD 530.81 ESOPHAGEAL REFLUX 01/19/2009 JOSEFINA RODRIGUEZ MD 724.5 BACKACHE UNSPECIFIED 01/19/2009 JOSEFINA RODRIGUEZ MD 786.2 Cough 01/19/2009 BAQIR, MOSHE 278.02 Overweight 01/19/2009 BAQIR, MOSHE 357.9 NEUROPATHY UNSP 01/19/2009 BAQIR, MOSHE 492.8 EMPHYSEMA OTHER 01/19/2009 BAQIR, MOSHE 530.81 ESOPHAGEAL REFLUX 01/19/2009 BAQIR, MOSHE 724.5 BACKACHE UNSPECIFIED 01/19/2009 BAQIR, MOSHE 786.2 Cough 01/19/2009 EATON RN BSN, JENNIFER L 278.02 Overweight 01/19/2009 EATON RN BSN, JENNIFER L 357.9 NEUROPATHY UNSP 01/19/2009 EATON RN BSN, JENNIFER L 492.8 EMPHYSEMA OTHER 01/19/2009 EATON RN BSN, JENNIFER L 530.81 ESOPHAGEAL REFLUX 01/19/2009 EATON RN BSN, JENNIFER L 724.5 BACKACHE UNSPECIFIED 01/19/2009 EATON RN BSN, JENNIFER L 786.2 Cough 01/19/2009 278.02 Overweight 01/19/2009 357.9 NEUROPATHY UNSP 01/19/2009 492.8 EMPHYSEMA OTHER 01/19/2009 530.81 ESOPHAGEAL REFLUX 01/19/2009 724.5 BACKACHE UNSPECIFIED 01/19/2009 786.2 Cough 01/19/2009 278.02 Overweight 01/19/2009 357.9 NEUROPATHY UNSP 01/19/2009 492.8 EMPHYSEMA OTHER 01/19/2009 530.81 ESOPHAGEAL REFLUX 01/19/2009 724.5 BACKACHE UNSPECIFIED 01/19/2009 786.2 Cough 01/19/2009 278.02 Overweight 01/19/2009 357.9 NEUROPATHY UNSP 01/19/2009 492.8 EMPHYSEMA OTHER 01/19/2009 530.81 ESOPHAGEAL REFLUX 01/19/2009 724.5 BACKACHE UNSPECIFIED 01/19/2009 786.2 Cough 01/19/2009 278.02 Overweight 01/19/2009 357.9 NEUROPATHY UNSP 01/19/2009 492.8 EMPHYSEMA OTHER 01/19/2009 530.81 ESOPHAGEAL REFLUX 01/19/2009 724.5 BACKACHE UNSPECIFIED 01/19/2009 786.2 Cough 01/19/2009 278.02 Overweight 01/19/2009 357.9 NEUROPATHY UNSP 01/19/2009 492.8 EMPHYSEMA OTHER 01/19/2009 530.81 ESOPHAGEAL REFLUX 01/19/2009 724.5 BACKACHE UNSPECIFIED 01/19/2009 786.2 Cough 01/19/2009 278.02 Overweight 01/19/2009 357.9 NEUROPATHY UNSP 01/19/2009 492.8 EMPHYSEMA OTHER 01/19/2009 530.81 ESOPHAGEAL REFLUX 01/19/2009 724.5 BACKACHE UNSPECIFIED 01/19/2009 786.2 Cough 01/19/2009 278.02 Overweight 01/19/2009 357.9 NEUROPATHY UNSP 01/19/2009 492.8 EMPHYSEMA OTHER 01/19/2009 530.81 ESOPHAGEAL REFLUX 01/19/2009 724.5 BACKACHE UNSPECIFIED 01/19/2009 786.2 Cough 01/19/2009 278.02 Overweight 01/19/2009 357.9 NEUROPATHY UNSP 01/19/2009 492.8 EMPHYSEMA OTHER 01/19/2009 530.81 ESOPHAGEAL REFLUX 01/19/2009 724.5 BACKACHE UNSPECIFIED 01/19/2009 786.2 Cough 01/19/2009 278.02 Overweight 01/19/2009 357.9 NEUROPATHY UNSP 01/19/2009 492.8 EMPHYSEMA OTHER 01/19/2009 530.81 ESOPHAGEAL REFLUX 01/19/2009 724.5 BACKACHE UNSPECIFIED 01/19/2009 786.2 Cough 01/19/2009 278.02 Overweight 01/19/2009 357.9 NEUROPATHY UNSP 01/19/2009 492.8 EMPHYSEMA OTHER 01/19/2009 530.81 ESOPHAGEAL REFLUX 01/19/2009 724.5 BACKACHE UNSPECIFIED 01/19/2009 786.2 Cough 01/19/2009 278.02 Overweight 01/19/2009 357.9 NEUROPATHY UNSP 01/19/2009 492.8 EMPHYSEMA OTHER 01/19/2009 530.81 ESOPHAGEAL REFLUX 01/19/2009 724.5 BACKACHE UNSPECIFIED 01/19/2009 786.2 Cough 01/19/2009 278.02 Overweight 01/19/2009 357.9 NEUROPATHY UNSP 01/19/2009 492.8 EMPHYSEMA OTHER 01/19/2009 530.81 ESOPHAGEAL REFLUX 01/19/2009 724.5 BACKACHE UNSPECIFIED 01/19/2009 786.2 Cough 01/19/2009 ROSE DO, GIGI K 278.02 Overweight 01/19/2009 ROSE DO, GIGI K 357.9 NEUROPATHY UNSP 01/19/2009 ROSE DO, GIGI K 492.8 EMPHYSEMA OTHER 01/19/2009 ROSE DO, GIGI K 530.81 ESOPHAGEAL REFLUX 01/19/2009 ROSE DO, GIGI K 724.5 BACKACHE UNSPECIFIED 01/19/2009 ROSE DO, GIGI K 786.2 Cough 01/19/2009 ALY PHD, JEN A 278.02 Overweight 01/19/2009 ALY BENITEZ, JEN Odom 357.9 NEUROPATHY UNSP 01/19/2009 ALY PHD, JEN Odom 492.8 EMPHYSEMA OTHER 01/19/2009 ALY BENITEZ, JEN Odom 530.81 ESOPHAGEAL REFLUX 01/19/2009 ALY BENITEZ, JEN Odom 724.5 BACKACHE UNSPECIFIED 01/19/2009 ALY BENITEZ, JEN Odom 786.2 Cough 01/19/2009 VALENTINE RN BSN, LATASHA S 278.02 Overweight 01/19/2009 VALENTINE RN BSN, LATASHA S 357.9 NEUROPATHY UNSP 01/19/2009 VALENTINE RN BSN, LATASHA S 492.8 EMPHYSEMA OTHER 01/19/2009 VALENTINE RN BSN, LATASHA S 530.81 ESOPHAGEAL REFLUX 01/19/2009 VALENTINE RN BSN, LATASHA S 724.5 BACKACHE UNSPECIFIED 01/19/2009 VALENTINE RN BSN, LATASHA S 786.2 Cough 01/19/2009 ROSE DO, GIGI K 278.02 Overweight 01/19/2009 ROSE DO, GIGI K 357.9 NEUROPATHY UNSP 01/19/2009 ROSE DO, GIGI K 492.8 EMPHYSEMA OTHER 01/19/2009 ROSE DO, GIGI K 530.81 ESOPHAGEAL REFLUX 01/19/2009 ROSE DO, GIGI K 724.5 BACKACHE UNSPECIFIED 01/19/2009 ROSE DO, GIGI K 786.2 Cough 01/19/2009 ALY PHDJEN 278.02 Overweight 01/19/2009 ALY PHD, JEN A 357.9 NEUROPATHY UNSP 01/19/2009 ALY BENITEZ, JEN A 492.8 EMPHYSEMA OTHER 01/19/2009 ALY BENITEZ, JEN A 530.81 ESOPHAGEAL REFLUX 01/19/2009 ALY BENITEZ, JEN A 724.5 BACKACHE UNSPECIFIED 01/19/2009 ALY BENITEZ, JEN Odom 786.2 Cough 01/19/2009 ROSE DO, GIGI K 278.02 Overweight 01/19/2009 ROSE DO, GIGI K 357.9 NEUROPATHY UNSP 01/19/2009 ROSE DO, GIGI K 492.8 EMPHYSEMA OTHER 01/19/2009 ROSE DO, GIGI K 530.81 ESOPHAGEAL REFLUX 01/19/2009 ROSE DO, GIGI K 724.5 BACKACHE UNSPECIFIED 01/19/2009 ROSE DO, GIGI K 786.2 Cough 01/19/2009 EATON RN BSN, JENNIFER L 278.02 Overweight 01/19/2009 EATON RN BSN, JENNIFER L 357.9 NEUROPATHY UNSP 01/19/2009 EATON RN BSN, JENNIFER L 492.8 EMPHYSEMA OTHER 01/19/2009 EATON RN BSN, JENNIFER L 530.81 ESOPHAGEAL REFLUX 01/19/2009 EATON RN BSN, JENNIFER L 724.5 BACKACHE UNSPECIFIED 01/19/2009 EATON RN BSN, JENNIFER L 786.2 Cough 01/19/2009 ALY PHD, JEN Odom 278.02 Overweight 01/19/2009 ALY PHD, JEN A 357.9 NEUROPATHY UNSP 01/19/2009 BOEGIGIOUT PHD, JEN A 492.8 EMPHYSEMA OTHER 01/19/2009 ALY PHD, JEN A 530.81 ESOPHAGEAL REFLUX 01/19/2009 [facility] PHD, JEN A 724.5 BACKACHE UNSPECIFIED 01/19/2009 [facility] A 786.2 Cough 01/19/2009 EATON RN BSN, JENNIFER L 278.02 Overweight 01/19/2009 EATON RN BSN, JENNIFER L 357.9 NEUROPATHY UNSP 01/19/2009 EATON RN BSN, JENNIFER L 492.8 EMPHYSEMA OTHER 01/19/2009 EATON RN BSN, JENNIFER L 530.81 ESOPHAGEAL REFLUX 01/19/2009 EATON RN BSN, JENNIFER L 724.5 BACKACHE UNSPECIFIED 01/19/2009 EATON RN BSN, JENNIFER L 786.2 Cough 01/19/2009 ALY BENITEZ, JEN A 278.02 Overweight 01/19/2009 ALY PHD, JEN A 357.9 NEUROPATHY UNSP 01/19/2009 [facility] JEN A 492.8 EMPHYSEMA OTHER 01/19/2009 [facility] PHD, JEN A 530.81 ESOPHAGEAL REFLUX 01/19/2009 ALY BENITEZ, JEN A 724.5 BACKACHE UNSPECIFIED 01/19/2009 ALY BENITEZ, JEN A 786.2 Cough 01/19/2009 EATON RN BSN, JENNIFER L 278.02 Overweight 01/19/2009 EATON RN BSN, JENNIFER L 357.9 NEUROPATHY UNSP 01/19/2009 EATON RN BSN, JENNIFER L 492.8 EMPHYSEMA OTHER 01/19/2009 EATON RN BSN, JENNIFER L 530.81 ESOPHAGEAL REFLUX 01/19/2009 EATON RN BSN, JENNIFER L 724.5 BACKACHE UNSPECIFIED 01/19/2009 EATON RN BSN, JENNIFER L 786.2 Cough 01/19/2009 ALY BENITEZ, JEN A 278.02 Overweight 01/19/2009 BOE[facility] PHD, JEN A 357.9 NEUROPATHY UNSP 01/19/2009 [facility] PHD, JEN A 492.8 EMPHYSEMA OTHER 01/19/2009 ALY PHD, JEN A 530.81 ESOPHAGEAL REFLUX 01/19/2009 ALY BENITEZ, JEN A 724.5 BACKACHE UNSPECIFIED 01/19/2009 ALY PHD, JEN A 786.2 Cough 01/19/2009 ROSE DO, GIGI K 278.02 Overweight 01/19/2009 ROSE DO, GIGI K 357.9 NEUROPATHY UNSP 01/19/2009 ROSE DO, GIGI K 492.8 EMPHYSEMA OTHER 01/19/2009 ROSE DO, GIGI K 530.81 ESOPHAGEAL REFLUX 01/19/2009 ROSE DO, GIGI K 724.5 BACKACHE UNSPECIFIED 01/19/2009 ROSE DO, GIGI K 786.2 Cough 01/19/2009 EATON RN BSN, JENNIFER L 278.02 Overweight 01/19/2009 EATON RN BSN, JENNIFER L 357.9 NEUROPATHY UNSP 01/19/2009 EATON RN BSN, JENNIFER L 492.8 EMPHYSEMA OTHER 01/19/2009 EATON RN BSN, JENNIFER L 530.81 ESOPHAGEAL REFLUX 01/19/2009 EATON RN BSN, JENNIFER L 724.5 BACKACHE UNSPECIFIED 01/19/2009 EATON RN BSN, JENNIFER L 786.2 Cough 01/19/2009 ALY PHD, JEN A 278.02 Overweight 01/19/2009 ALY PHD, JEN A 357.9 NEUROPATHY UNSP 01/19/2009 ALY PHD, JEN A 492.8 EMPHYSEMA OTHER 01/19/2009 [facility], JEN A 530.81 ESOPHAGEAL REFLUX 01/19/2009 ALY PHD, JEN A 724.5 BACKACHE UNSPECIFIED 01/19/2009 ALY BENITEZ, JEN A 786.2 Cough 01/19/2009 ROSE DO, GIGI K 278.02 Overweight 01/19/2009 ROSE DO, GIGI K 357.9 NEUROPATHY UNSP 01/19/2009 ROSE DO, GIGI K 492.8 EMPHYSEMA OTHER 01/19/2009 ROSE DO, GIGI K 530.81 ESOPHAGEAL REFLUX 01/19/2009 ROSE DO, GIGI K 724.5 BACKACHE UNSPECIFIED 01/19/2009 ROSE DO, GIGI K 786.2 Cough 01/19/2009 EATON RN BSN, JENNIFER L 278.02 Overweight 01/19/2009 EATON RN BSN, JENNIFER L 357.9 NEUROPATHY UNSP 01/19/2009 EATON RN BSN, JENNIFER L 492.8 EMPHYSEMA OTHER 01/19/2009 EATON RN BSN, JENNIFER L 530.81 ESOPHAGEAL REFLUX 01/19/2009 EATON RN BSN, JENNIFER L 724.5 BACKACHE UNSPECIFIED 01/19/2009 EATON RN BSN, JENNIFER L 786.2 Cough 01/19/2009 [facility] PHD, JEN A 278.02 Overweight 01/19/2009 [facility] PHD, JEN A 357.9 NEUROPATHY UNSP 01/19/2009 [facility] PHD, JEN A 492.8 EMPHYSEMA OTHER 01/19/2009 [facility] PHD, JEN A 530.81 ESOPHAGEAL REFLUX 01/19/2009 [facility] PHD, JEN A 724.5 BACKACHE UNSPECIFIED 01/19/2009 [facility] PHD, JEN A 786.2 Cough 01/19/2009 EATON RN BSN, JENNIFER L 278.02 Overweight 01/19/2009 EATON RN BSN, JENNIFER L 357.9 NEUROPATHY UNSP 01/19/2009 EATON RN BSN, JENNIFER L 492.8 EMPHYSEMA OTHER 01/19/2009 EATON RN BSN, JENNIFER L 530.81 ESOPHAGEAL REFLUX 01/19/2009 EATON RN BSN, JENNIFER L 724.5 BACKACHE UNSPECIFIED 01/19/2009 EATON RN BSN, JENNIFER L 786.2 Cough 01/19/2009 [facility] PHD, JEN A 278.02 Overweight 01/19/2009 [facility] PHD, JEN A 357.9 NEUROPATHY UNSP 01/19/2009 [facility] PHD, JEN A 492.8 EMPHYSEMA OTHER 01/19/2009 [facility] PHD, JEN A 530.81 ESOPHAGEAL REFLUX 01/19/2009 [facility] PHD, JEN A 724.5 BACKACHE UNSPECIFIED 01/19/2009 [facility] PHD, JEN A 786.2 Cough 01/19/2009 EATON RN BSN, JENNIFER L 278.02 Overweight 01/19/2009 EATON RN BSN, JENNIFER L 357.9 NEUROPATHY UNSP 01/19/2009 EATON RN BSN, JENNIFER L 492.8 EMPHYSEMA OTHER 01/19/2009 EATON RN BSN, JENNIFER L 530.81 ESOPHAGEAL REFLUX 01/19/2009 EATON RN BSN, JENNIFER L 724.5 BACKACHE UNSPECIFIED 01/19/2009 EATON RN BSN, JENNIFER L 786.2 Cough 01/19/2009 ROSE DO, GIGI K 278.02 Overweight 01/19/2009 ROSE DO, GIGI K 357.9 NEUROPATHY UNSP 01/19/2009 ROSE DO, GIGI K 492.8 EMPHYSEMA OTHER 01/19/2009 ROSE DO, GIGI K 530.81 ESOPHAGEAL REFLUX 01/19/2009 ROSE DO, GIGI K 724.5 BACKACHE UNSPECIFIED 01/19/2009 ROSE DO, GIGI K 786.2 Cough 01/19/2009 [facility] PHD, JEN A 278.02 Overweight 01/19/2009 [facility] PHD, JEN A 357.9 NEUROPATHY UNSP 01/19/2009 [facility] PHD, JEN A 492.8 EMPHYSEMA OTHER 01/19/2009 [facility] PHD, JEN A 530.81 ESOPHAGEAL REFLUX 01/19/2009 [facility] PHD, JEN A 724.5 BACKACHE UNSPECIFIED 01/19/2009 [facility] PHD, JEN Odom 786.2 Cough 01/19/2009 ROSE DO, GIGI K 278.02 Overweight 01/19/2009 ROSE DO, GIGI K 357.9 NEUROPATHY UNSP 01/19/2009 ROSE DO, GIGI K 492.8 EMPHYSEMA OTHER 01/19/2009 ROSE DO, GIGI K 530.81 ESOPHAGEAL REFLUX 01/19/2009 ROSE DO, GIGI K 724.5 BACKACHE UNSPECIFIED 01/19/2009 ROSE DO, GIGI K 786.2 Cough 01/19/2009 BOEANSHUL PHD, JEN A 278.02 Overweight 01/19/2009 BOEANSHUL PHD, JEN A 357.9 NEUROPATHY UNSP 01/19/2009 BOEANSHUL PHD, JEN A 492.8 EMPHYSEMA OTHER 01/19/2009 BOEANSHUL PHD, JEN A 530.81 ESOPHAGEAL REFLUX 01/19/2009 BOEANSHUL PHD, JEN A 724.5 BACKACHE UNSPECIFIED 01/19/2009 BOEANSHUL BENITEZ, JEN A 786.2 Cough 01/19/2009 BOEANSHUL PHD, JEN A 278.02 Overweight 01/19/2009 BOEANSHUL PHD, JEN A 357.9 NEUROPATHY UNSP 01/19/2009 BOEANSHUL PHD, JEN A 492.8 EMPHYSEMA OTHER 01/19/2009 BOEANSHUL PHD, JEN A 530.81 ESOPHAGEAL REFLUX 01/19/2009 BOEANSHUL BENITEZ, JEN A 724.5 BACKACHE UNSPECIFIED 01/19/2009 ALY PHD, JEN A 786.2 Cough 01/19/2009 ROSE DO, GIGI K 278.02 Overweight 01/19/2009 ROSE DO, GIGI K 357.9 NEUROPATHY UNSP 01/19/2009 ROSE DO, GIIG K 492.8 EMPHYSEMA OTHER 01/19/2009 ROSE DO, GIGI K 530.81 ESOPHAGEAL REFLUX 01/19/2009 ROSE DO, GIGI K 724.5 BACKACHE UNSPECIFIED 01/19/2009 ROSE DO, GIGI K 786.2 Cough 01/19/2009 BOEANSHUL PHD, JEN A 278.02 Overweight 01/19/2009 ALY PHD, JEN A 357.9 NEUROPATHY UNSP 01/19/2009 ALY PHD, JEN A 492.8 EMPHYSEMA OTHER 01/19/2009 ALY PHD, JEN A 530.81 ESOPHAGEAL REFLUX 01/19/2009 ALY BENITEZ, JEN A 724.5 BACKACHE UNSPECIFIED 01/19/2009 ALY BENITEZ, JEN A 786.2 Cough 01/19/2009 EATON RN BSN, JENNIFER L 278.02 Overweight 01/19/2009 EATON RN BSN, JENNIFER L 357.9 NEUROPATHY UNSP 01/19/2009 EATON RN BSN, JENNIFER L 492.8 EMPHYSEMA OTHER 01/19/2009 EATON RN BSN, JENNIFER L 530.81 ESOPHAGEAL REFLUX 01/19/2009 EATON RN BSN, JENNIFER L 724.5 BACKACHE UNSPECIFIED 01/19/2009 EATON RN BSN, JENNIFER L 786.2 Cough 01/19/2009 ALY PHD, JEN A 278.02 Overweight 01/19/2009 BOEGIGIOUT PHD, JEN A 357.9 NEUROPATHY UNSP 01/19/2009 ALY PHD, JEN A 492.8 EMPHYSEMA OTHER 01/19/2009 ALY PHD, JEN A 530.81 ESOPHAGEAL REFLUX 01/19/2009 ALY BENITEZ, JEN A 724.5 BACKACHE UNSPECIFIED 01/19/2009 ALY PHD, JEN A 786.2 Cough 01/19/2009 TRAE DPM, GINA 278.02 Overweight 01/19/2009 TRAE DPM, GINA 357.9 NEUROPATHY UNSP 01/19/2009 TRAE DPM, GINA 492.8 EMPHYSEMA OTHER 01/19/2009 TRAE DPM, GINA 530.81 ESOPHAGEAL REFLUX 01/19/2009 TRAE DPM, GINA 724.5 BACKACHE UNSPECIFIED 01/19/2009 TRAE DPM, GINA 786.2 Cough 01/19/2009 ROSE DO, GIGI K 278.02 Overweight 01/19/2009 ROSE DO, GIGI K 357.9 NEUROPATHY UNSP 01/19/2009 ROSE DO, GIGI K 492.8 EMPHYSEMA OTHER 01/19/2009 ROSE DO, GIGI K 530.81 ESOPHAGEAL REFLUX 01/19/2009 ROSE DO, GIGI K 724.5 BACKACHE UNSPECIFIED 01/19/2009 ROSE DO, GIGI K 786.2 Cough 01/19/2009 EATON RN BSN, JENNIFER L 278.02 Overweight 01/19/2009 EATON RN BSN, JENNIFER L 357.9 NEUROPATHY UNSP 01/19/2009 EATON RN BSN, JENNIFER L 492.8 EMPHYSEMA OTHER 01/19/2009 EATON RN BSN, JENNIFER L 530.81 ESOPHAGEAL REFLUX 01/19/2009 EATON RN BSN, JENNIFER L 724.5 BACKACHE UNSPECIFIED 01/19/2009 EATON RN BSN, JENNIFER L 786.2 Cough 01/19/2009 ALY BENITEZ, JEN Odom 278.02 Overweight 01/19/2009 ALY BENITEZ, JEN Odom 357.9 NEUROPATHY UNSP 01/19/2009 ALY BENITEZ, JEN A 492.8 EMPHYSEMA OTHER 01/19/2009 ALY BENITEZ, JEN A 530.81 ESOPHAGEAL REFLUX 01/19/2009 ALY BENITEZ, JEN A 724.5 BACKACHE UNSPECIFIED 01/19/2009 ALY PHD, JEN Odom 786.2 Cough 01/19/2009 ROSE DO, GIGI K 278.02 Overweight 01/19/2009 ROSE DO, GIGI K 357.9 NEUROPATHY UNSP 01/19/2009 ROSE DO, GIGI K 492.8 EMPHYSEMA OTHER 01/19/2009 ROSE DO, GIGI K 530.81 ESOPHAGEAL REFLUX 01/19/2009 ROSE DO, GIGI K 724.5 BACKACHE UNSPECIFIED 01/19/2009 ROSE DO, GIGI K 786.2 Cough 01/19/2009 ALY BENITEZ, JEN A 278.02 Overweight 01/19/2009 ALY PHD, JEN A 357.9 NEUROPATHY UNSP 01/19/2009 BOEOUT PHD, JEN A 492.8 EMPHYSEMA OTHER 01/19/2009 BOEOUT PHD, JEN A 530.81 ESOPHAGEAL REFLUX 01/19/2009 BOEOUT PHD, JEN A 724.5 BACKACHE UNSPECIFIED 01/19/2009 BOEOUT PHD, JEN A 786.2 Cough 01/19/2009 BOEOUT PHD, JEN A 278.02 Overweight 01/19/2009 [facility] PHD, JEN A 357.9 NEUROPATHY UNSP 01/19/2009 BOEOUT PHD, JEN A 492.8 EMPHYSEMA OTHER 01/19/2009 BOEOUT PHD, JEN A 530.81 ESOPHAGEAL REFLUX 01/19/2009 BOEOUT PHD, JEN A 724.5 BACKACHE UNSPECIFIED 01/19/2009 [facility] PHD, JEN A 786.2 Cough 02/10/2009 ALY BENITEZ, JEN A 300.4 DEPRESSION WITH ANXIETY 02/10/2009 JEN LU PHD 958.3 Wound Infection 02/10/2009 300.4 DEPRESSION WITH ANXIETY 02/10/2009 958.3 Wound Infection 02/10/2009 300.4 DEPRESSION WITH ANXIETY 02/10/2009 958.3 Wound Infection 02/10/2009 JOSEFINA RODRIGUEZ MD 300.4 DEPRESSION WITH ANXIETY 02/10/2009 JOSEFINA RODRIGUEZ MD 958.3 Wound Infection 02/10/2009 300.4 DEPRESSION WITH ANXIETY 02/10/2009 958.3 Wound Infection 02/10/2009 JEN LU PHD 300.4 DEPRESSION WITH ANXIETY 02/10/2009 JEN LU PHD 958.3 Wound Infection 02/10/2009 JOSEFINA RODRIGUEZ MD 300.4 DEPRESSION WITH ANXIETY 02/10/2009 JOSEFINA RODRIGUEZ MD 958.3 Wound Infection 02/10/2009 JENNIFER IGLESIAS APRN L 300.4 DEPRESSION WITH ANXIETY 02/10/2009 JENNIFER IGLESIAS APRN L 958.3 Wound Infection 02/10/2009 300.4 DEPRESSION WITH ANXIETY 02/10/2009 958.3 Wound Infection 02/10/2009 JOSEFINA RODRIGUEZ MD 300.4 DEPRESSION WITH ANXIETY 02/10/2009 JOSEFINA RODRIGUEZ MD 958.3 Wound Infection 02/10/2009 JOSEFINA RODRIGUEZ MD 300.4 DEPRESSION WITH ANXIETY 02/10/2009 JOSEFINA RODRIGUEZ MD 958.3 Wound Infection 02/10/2009 300.4 DEPRESSION WITH ANXIETY 02/10/2009 958.3 Wound Infection 02/10/2009 JOSEFINA RODRIGUEZ MD 300.4 DEPRESSION WITH ANXIETY 02/10/2009 JOSEFINA RODRIGUEZ MD 958.3 Wound Infection 02/10/2009 BAQIR, MOSHE 300.4 DEPRESSION WITH ANXIETY 02/10/2009 BAQIR, MOSHE 958.3 Wound Infection 02/10/2009 EATON RN BSN, JENNIFER L 300.4 DEPRESSION WITH ANXIETY 02/10/2009 EATON RN BSN, JENNIFER L 958.3 Wound Infection 02/10/2009 300.4 DEPRESSION WITH ANXIETY 02/10/2009 958.3 Wound Infection 02/10/2009 300.4 DEPRESSION WITH ANXIETY 02/10/2009 958.3 Wound Infection 02/10/2009 300.4 DEPRESSION WITH ANXIETY 02/10/2009 958.3 Wound Infection 02/10/2009 300.4 DEPRESSION WITH ANXIETY 02/10/2009 958.3 Wound Infection 02/10/2009 300.4 DEPRESSION WITH ANXIETY 02/10/2009 958.3 Wound Infection 02/10/2009 300.4 DEPRESSION WITH ANXIETY 02/10/2009 958.3 Wound Infection 02/10/2009 300.4 DEPRESSION WITH ANXIETY 02/10/2009 958.3 Wound Infection 02/10/2009 300.4 DEPRESSION WITH ANXIETY 02/10/2009 958.3 Wound Infection 02/10/2009 300.4 DEPRESSION WITH ANXIETY 02/10/2009 958.3 Wound Infection 02/10/2009 300.4 DEPRESSION WITH ANXIETY 02/10/2009 958.3 Wound Infection 02/10/2009 300.4 DEPRESSION WITH ANXIETY 02/10/2009 958.3 Wound Infection 02/10/2009 300.4 DEPRESSION WITH ANXIETY 02/10/2009 958.3 Wound Infection 02/10/2009 ROSE DOGIGI K 300.4 DEPRESSION WITH ANXIETY 02/10/2009 ROSE DOGIGI K 958.3 Wound Infection 02/10/2009 ALY PHD, JEN Odom 300.4 DEPRESSION WITH ANXIETY 02/10/2009 ALY BENITEZ, JEN Odom 958.3 Wound Infection 02/10/2009 VALENTINE RN BSN, LATASHA S 300.4 DEPRESSION WITH ANXIETY 02/10/2009 VALENTINE RN BSN, LATASHA S 958.3 Wound Infection 02/10/2009 ROSE DO, GIGI K 300.4 DEPRESSION WITH ANXIETY 02/10/2009 ROSE DO, GIGI K 958.3 Wound Infection 02/10/2009 BOEGIGIOUT PHD, JEN A 300.4 DEPRESSION WITH ANXIETY 02/10/2009 BOEKHOUT PHD, JEN A 958.3 Wound Infection 02/10/2009 ROSE DO, GIGI K 300.4 DEPRESSION WITH ANXIETY 02/10/2009 ROSE DO, GIGI K 958.3 Wound Infection 02/10/2009 EATON RN BSN, JENNIFER L 300.4 DEPRESSION WITH ANXIETY 02/10/2009 EATON RN BSN, JENNIFER L 958.3 Wound Infection 02/10/2009 BOEOUT PHD, JEN A 300.4 DEPRESSION WITH ANXIETY 02/10/2009 BOEGIGIOUT PHD, JEN A 958.3 Wound Infection 02/10/2009 EATON RN BSN, JENNIFER L 300.4 DEPRESSION WITH ANXIETY 02/10/2009 EATON RN BSN, JENNIFER L 958.3 Wound Infection 02/10/2009 BOEGIGIOUT PHD, JEN A 300.4 DEPRESSION WITH ANXIETY 02/10/2009 BOEGIGIOUT PHD, JEN A 958.3 Wound Infection 02/10/2009 EATON RN BSN, JENNIFER L 300.4 DEPRESSION WITH ANXIETY 02/10/2009 EATON RN BSN, JENNIFER L 958.3 Wound Infection 02/10/2009 BOEGIGIOUT PHD, JEN A 300.4 DEPRESSION WITH ANXIETY 02/10/2009 BOEANSHUL PHD, JEN A 958.3 Wound Infection 02/10/2009 ROSE DO, GIGI K 300.4 DEPRESSION WITH ANXIETY 02/10/2009 ROSE DO, GIGI K 958.3 Wound Infection 02/10/2009 EATON RN BSN, JENNIFER L 300.4 DEPRESSION WITH ANXIETY 02/10/2009 EATON RN BSN, JENNIFER L 958.3 Wound Infection 02/10/2009 BOEGIGIOUT PHD, JEN A 300.4 DEPRESSION WITH ANXIETY 02/10/2009 BOEGIGIOUT PHD, JEN A 958.3 Wound Infection 02/10/2009 ROSE DO, GIGI K 300.4 DEPRESSION WITH ANXIETY 02/10/2009 ROSE DO, GIGI K 958.3 Wound Infection 02/10/2009 EATON RN BSN, JENNIFER L 300.4 DEPRESSION WITH ANXIETY 02/10/2009 EATON RN BSN, JENNIEFR L 958.3 Wound Infection 02/10/2009 BOEKHOUT PHD, JEN A 300.4 DEPRESSION WITH ANXIETY 02/10/2009 BOEKHOUT PHD, JEN A 958.3 Wound Infection 02/10/2009 EATON RN BSN, JENNIFER L 300.4 DEPRESSION WITH ANXIETY 02/10/2009 EATON RN BSN, JENNIFER L 958.3 Wound Infection 02/10/2009 BOEKHOUT PHD, JEN A 300.4 DEPRESSION WITH ANXIETY 02/10/2009 BOEKHOUT PHD, JEN A 958.3 Wound Infection 02/10/2009 EATON RN BSN, JENNIFER L 300.4 DEPRESSION WITH ANXIETY 02/10/2009 EATON RN BSN, JENNIFER L 958.3 Wound Infection 02/10/2009 ROSE DO, GIGI K 300.4 DEPRESSION WITH ANXIETY 02/10/2009 ROSE DO, GIGI K 958.3 Wound Infection 02/10/2009 BOEGIGIOUT PHD, JEN A 300.4 DEPRESSION WITH ANXIETY 02/10/2009 BOEKHOUT PHD, JEN A 958.3 Wound Infection 02/10/2009 ROSE DO, GIGI K 300.4 DEPRESSION WITH ANXIETY 02/10/2009 ROSE DO, GIGI K 958.3 Wound Infection 02/10/2009 BOEGIGIOUT PHD, JEN A 300.4 DEPRESSION WITH ANXIETY 02/10/2009 BOEKHOUT PHD, JEN A 958.3 Wound Infection 02/10/2009 BOEKHOUT PHD, JEN A 300.4 DEPRESSION WITH ANXIETY 02/10/2009 BOEKHOUT PHD, JEN A 958.3 Wound Infection 02/10/2009 ROSE DO, GIGI K 300.4 DEPRESSION WITH ANXIETY 02/10/2009 ROSE DO, GIGI K 958.3 Wound Infection 02/10/2009 BOEKHOUT PHD, JEN A 300.4 DEPRESSION WITH ANXIETY 02/10/2009 BOEKHOUT PHD, JEN A 958.3 Wound Infection 02/10/2009 EATON RN BSN, JENNIFER L 300.4 DEPRESSION WITH ANXIETY 02/10/2009 EATON RN BSN, JENNIFER L 958.3 Wound Infection 02/10/2009 BOEKHOUT PHD, JEN A 300.4 DEPRESSION WITH ANXIETY 02/10/2009 ALY PHD, JEN A 958.3 Wound Infection 02/10/2009 TRAE DPM, GINA 300.4 DEPRESSION WITH ANXIETY 02/10/2009 TRAE DPM, GINA 958.3 Wound Infection 02/10/2009 ROSE DO, GIGI K 300.4 DEPRESSION WITH ANXIETY 02/10/2009 ROSE DO, GIGI K 958.3 Wound Infection 02/10/2009 EATON RN BSN, JENNIFER L 300.4 DEPRESSION WITH ANXIETY 02/10/2009 EATON RN BSN, JENNIFER L 958.3 Wound Infection 02/10/2009 ALY PHD, JEN A 300.4 DEPRESSION WITH ANXIETY 02/10/2009 ALY PHD, JEN A 958.3 Wound Infection 02/10/2009 ROSE DO, GIGI K 300.4 DEPRESSION WITH ANXIETY 02/10/2009 ROSE DO, GIGI K 958.3 Wound Infection 02/10/2009 ALY BENITEZ, JEN A 300.4 DEPRESSION WITH ANXIETY 02/10/2009 ALY PHD, JEN A 958.3 Wound Infection 02/10/2009 ALY PHD, JEN A 300.4 DEPRESSION WITH ANXIETY 02/10/2009 ALY PHD, JEN A 958.3 Wound Infection 02/26/2009 ALY PHD, JEN A 250.60 DIABETES MELLITUS DIABETIC PERIPHERAL NEUROPATHY 02/26/2009 ALY PHD, JEN A 300.00 anxiety 02/26/2009 ALY BENITEZ, JEN A 707.12 Chronic Cutaneous Ulcers Calf Right 02/26/2009 250.60 DIABETES MELLITUS DIABETIC PERIPHERAL NEUROPATHY 02/26/2009 300.00 anxiety 02/26/2009 707.12 Chronic Cutaneous Ulcers Calf Right 02/26/2009 250.60 DIABETES MELLITUS DIABETIC PERIPHERAL NEUROPATHY 02/26/2009 300.00 anxiety 02/26/2009 707.12 Chronic Cutaneous Ulcers Calf Right 02/26/2009 JOSEFINA RODRIGUEZ MD 250.60 DIABETES MELLITUS DIABETIC PERIPHERAL NEUROPATHY 02/26/2009 JOSEFINA RODRIGUEZ MD 300.00 anxiety 02/26/2009 JOSEFINA RODRIGUEZ MD 707.12 Chronic Cutaneous Ulcers Calf Right 02/26/2009 250.60 DIABETES MELLITUS DIABETIC PERIPHERAL NEUROPATHY 02/26/2009 300.00 anxiety 02/26/2009 707.12 Chronic Cutaneous Ulcers Calf Right 02/26/2009 ALY BENITEZ, JEN A 250.60 DIABETES MELLITUS DIABETIC PERIPHERAL NEUROPATHY 02/26/2009 ALY PHD, JEN A 300.00 anxiety 02/26/2009 ALY BENITEZ, JEN A 707.12 Chronic Cutaneous Ulcers Calf Right 02/26/2009 JOSEFINA RODRIGUEZ MD 250.60 DIABETES MELLITUS DIABETIC PERIPHERAL NEUROPATHY 02/26/2009 JOSEFINA RODRIGUEZ MD 300.00 anxiety 02/26/2009 JOSEFINA RODRIGUEZ MD 707.12 Chronic Cutaneous Ulcers Calf Right 02/26/2009 KELSIE GILLESPIE JENNIFER L 250.60 DIABETES MELLITUS DIABETIC PERIPHERAL NEUROPATHY 02/26/2009 EATENA GILLESPIE, JENNIFER L 300.00 anxiety 02/26/2009 KELSIE GILLESPIE JENNIFER L 707.12 Chronic Cutaneous Ulcers Calf Right 02/26/2009 250.60 DIABETES MELLITUS DIABETIC PERIPHERAL NEUROPATHY 02/26/2009 300.00 anxiety 02/26/2009 707.12 Chronic Cutaneous Ulcers Calf Right 02/26/2009 JOSEFINA RODRIGUEZ MD 250.60 DIABETES MELLITUS DIABETIC PERIPHERAL NEUROPATHY 02/26/2009 JOSEFINA RODRIGUEZ MD 300.00 anxiety 02/26/2009 JOSEFINA RODRIGUEZ MD 707.12 Chronic Cutaneous Ulcers Calf Right 02/26/2009 JOSEFINA RODRIGUEZ MD 250.60 DIABETES MELLITUS DIABETIC PERIPHERAL NEUROPATHY 02/26/2009 JOSEFINA RODRIGUEZ MD 300.00 anxiety 02/26/2009 JOSEFINA RODRIGUEZ MD 707.12 Chronic Cutaneous Ulcers Calf Right 02/26/2009 250.60 DIABETES MELLITUS DIABETIC PERIPHERAL NEUROPATHY 02/26/2009 300.00 anxiety 02/26/2009 707.12 Chronic Cutaneous Ulcers Calf Right 02/26/2009 JOSEFINA RODRIGUEZ MD 250.60 DIABETES MELLITUS DIABETIC PERIPHERAL NEUROPATHY 02/26/2009 JOSEFINA RODRIGUEZ MD 300.00 anxiety 02/26/2009 JOSEFINA RODRIGUEZ MD 707.12 Chronic Cutaneous Ulcers Calf Right 02/26/2009 MOSHE BEAULIEU 250.60 DIABETES MELLITUS DIABETIC PERIPHERAL NEUROPATHY 02/26/2009 MOSHE BEAULIEU 300.00 anxiety 02/26/2009 MOSHE BEAULIEU 707.12 Chronic Cutaneous Ulcers Calf Right 02/26/2009 KELSIE GILLESPIE JENNIFER L 250.60 DIABETES MELLITUS DIABETIC PERIPHERAL NEUROPATHY 02/26/2009 KELSIE GILLESPIE, JENNIFER L 300.00 anxiety 02/26/2009 KELSIE GILLESPIE JENNIFER L 707.12 Chronic Cutaneous Ulcers Calf Right 02/26/2009 250.60 DIABETES MELLITUS DIABETIC PERIPHERAL NEUROPATHY 02/26/2009 300.00 anxiety 02/26/2009 707.12 Chronic Cutaneous Ulcers Calf Right 02/26/2009 250.60 DIABETES MELLITUS DIABETIC PERIPHERAL NEUROPATHY 02/26/2009 300.00 anxiety 02/26/2009 707.12 Chronic Cutaneous Ulcers Calf Right 02/26/2009 250.60 DIABETES MELLITUS DIABETIC PERIPHERAL NEUROPATHY 02/26/2009 300.00 anxiety 02/26/2009 707.12 Chronic Cutaneous Ulcers Calf Right 02/26/2009 250.60 DIABETES MELLITUS DIABETIC PERIPHERAL NEUROPATHY 02/26/2009 300.00 anxiety 02/26/2009 707.12 Chronic Cutaneous Ulcers Calf Right 02/26/2009 250.60 DIABETES MELLITUS DIABETIC PERIPHERAL NEUROPATHY 02/26/2009 300.00 anxiety 02/26/2009 707.12 Chronic Cutaneous Ulcers Calf Right 02/26/2009 250.60 DIABETES MELLITUS DIABETIC PERIPHERAL NEUROPATHY 02/26/2009 300.00 anxiety 02/26/2009 707.12 Chronic Cutaneous Ulcers Calf Right 02/26/2009 250.60 DIABETES MELLITUS DIABETIC PERIPHERAL NEUROPATHY 02/26/2009 300.00 anxiety 02/26/2009 707.12 Chronic Cutaneous Ulcers Calf Right 02/26/2009 250.60 DIABETES MELLITUS DIABETIC PERIPHERAL NEUROPATHY 02/26/2009 300.00 anxiety 02/26/2009 707.12 Chronic Cutaneous Ulcers Calf Right 02/26/2009 250.60 DIABETES MELLITUS DIABETIC PERIPHERAL NEUROPATHY 02/26/2009 300.00 anxiety 02/26/2009 707.12 Chronic Cutaneous Ulcers Calf Right 02/26/2009 250.60 DIABETES MELLITUS DIABETIC PERIPHERAL NEUROPATHY 02/26/2009 300.00 anxiety 02/26/2009 707.12 Chronic Cutaneous Ulcers Calf Right 02/26/2009 250.60 DIABETES MELLITUS DIABETIC PERIPHERAL NEUROPATHY 02/26/2009 300.00 anxiety 02/26/2009 707.12 Chronic Cutaneous Ulcers Calf Right 02/26/2009 250.60 DIABETES MELLITUS DIABETIC PERIPHERAL NEUROPATHY 02/26/2009 300.00 anxiety 02/26/2009 707.12 Chronic Cutaneous Ulcers Calf Right 02/26/2009 GIGI ROSE DO 250.60 DIABETES MELLITUS DIABETIC PERIPHERAL NEUROPATHY 02/26/2009 GIGI ROSE DO 300.00 anxiety 02/26/2009 GIGI ROSE DO 707.12 Chronic Cutaneous Ulcers Calf Right 02/26/2009 ALY BENITEZ, JEN A 250.60 DIABETES MELLITUS DIABETIC PERIPHERAL NEUROPATHY 02/26/2009 ALY BENITEZ, JEN A 300.00 anxiety 02/26/2009 ALY BENITEZ, JEN A 707.12 Chronic Cutaneous Ulcers Calf Right 02/26/2009 VALENTINE GILLESPIE, LATASHA S 250.60 DIABETES MELLITUS DIABETIC PERIPHERAL NEUROPATHY 02/26/2009 VALENTINE VILLARREALN, LATASHA S 300.00 anxiety 02/26/2009 VALENTINE GILLESPIE, LATASHA S 707.12 Chronic Cutaneous Ulcers Calf Right 02/26/2009 ROSE DO, GIGI K 250.60 DIABETES MELLITUS DIABETIC PERIPHERAL NEUROPATHY 02/26/2009 ROSE DO, GIGI K 300.00 anxiety 02/26/2009 ROSE DO, GIGI K 707.12 Chronic Cutaneous Ulcers Calf Right 02/26/2009 ALY BENITEZ, JEN A 250.60 DIABETES MELLITUS DIABETIC PERIPHERAL NEUROPATHY 02/26/2009 ALY BENITEZ, JEN A 300.00 anxiety 02/26/2009 JEN LU PHD 707.12 Chronic Cutaneous Ulcers Calf Right 02/26/2009 ROSE DO, GIGI K 250.60 DIABETES MELLITUS DIABETIC PERIPHERAL NEUROPATHY 02/26/2009 ROSE DO, GIGI K 300.00 anxiety 02/26/2009 ROSE DO, GIGI K 707.12 Chronic Cutaneous Ulcers Calf Right 02/26/2009 KELSIE GILLESPIE, JENNIFER L 250.60 DIABETES MELLITUS DIABETIC PERIPHERAL NEUROPATHY 02/26/2009 EATENA GILLESPIE, JENNIFER L 300.00 anxiety 02/26/2009 KELSIE GILLESPIE, JENNIFER L 707.12 Chronic Cutaneous Ulcers Calf Right 02/26/2009 JEN LU PHD A 250.60 DIABETES MELLITUS DIABETIC PERIPHERAL NEUROPATHY 02/26/2009 ALY BENITEZ, JEN A 300.00 anxiety 02/26/2009 ALY BENITEZ, JEN A 707.12 Chronic Cutaneous Ulcers Calf Right 02/26/2009 KELSIE VILLARREALN, JENNIFER L 250.60 DIABETES MELLITUS DIABETIC PERIPHERAL NEUROPATHY 02/26/2009 EATENA VILLARREALN, JENNIFER L 300.00 anxiety 02/26/2009 EATENA VILLARREALN, JENNIFER L 707.12 Chronic Cutaneous Ulcers Calf Right 02/26/2009 JEN LU PHD A 250.60 DIABETES MELLITUS DIABETIC PERIPHERAL NEUROPATHY 02/26/2009 JEN LU PHD A 300.00 anxiety 02/26/2009 ALY BENITEZ, JEN A 707.12 Chronic Cutaneous Ulcers Calf Right 02/26/2009 EATENA GILLESPIE, JENNIFER L 250.60 DIABETES MELLITUS DIABETIC PERIPHERAL NEUROPATHY 02/26/2009 EATON RN BSN, JENNIFER L 300.00 anxiety 02/26/2009 EATON RN BSN, JENNIFER L 707.12 Chronic Cutaneous Ulcers Calf Right 02/26/2009 ALY BENITEZ, JEN A 250.60 DIABETES MELLITUS DIABETIC PERIPHERAL NEUROPATHY 02/26/2009 ALY BENITEZ, JEN A 300.00 anxiety 02/26/2009 ALY BENITEZ, JEN Odom 707.12 Chronic Cutaneous Ulcers Calf Right 02/26/2009 ROSE DO, GIGI K 250.60 DIABETES MELLITUS DIABETIC PERIPHERAL NEUROPATHY 02/26/2009 ROSE DO, GIGI K 300.00 anxiety 02/26/2009 ROSE DO, GIGI K 707.12 Chronic Cutaneous Ulcers Calf Right 02/26/2009 KELSIE GILLESPIE, JENNIFER L 250.60 DIABETES MELLITUS DIABETIC PERIPHERAL NEUROPATHY 02/26/2009 KELSIE GILLESPIE, JENNIFER L 300.00 anxiety 02/26/2009 KELSIE GILLESPIE, JENNIFER L 707.12 Chronic Cutaneous Ulcers Calf Right 02/26/2009 ALY BENITEZ, JEN Odom 250.60 DIABETES MELLITUS DIABETIC PERIPHERAL NEUROPATHY 02/26/2009 ALY BENITEZ, JEN A 300.00 anxiety 02/26/2009 JEN LU PHD A 707.12 Chronic Cutaneous Ulcers Calf Right 02/26/2009 ROSE DO, GIGI K 250.60 DIABETES MELLITUS DIABETIC PERIPHERAL NEUROPATHY 02/26/2009 ROSE DO, GIGI K 300.00 anxiety 02/26/2009 ROSE DO, GIGI K 707.12 Chronic Cutaneous Ulcers Calf Right 02/26/2009 JENNIFER IGLESIAS APRN L 250.60 DIABETES MELLITUS DIABETIC PERIPHERAL NEUROPATHY 02/26/2009 KELSIE GILLESPIE, JENNIFER L 300.00 anxiety 02/26/2009 KELSIE GILLESPIE, JENNIFER L 707.12 Chronic Cutaneous Ulcers Calf Right 02/26/2009 ALY BENITEZ, JEN A 250.60 DIABETES MELLITUS DIABETIC PERIPHERAL NEUROPATHY 02/26/2009 ALY BENITEZ, JEN A 300.00 anxiety 02/26/2009 JEN LU PHD 707.12 Chronic Cutaneous Ulcers Calf Right 02/26/2009 YINKA IGLESIAS APRNSON L 250.60 DIABETES MELLITUS DIABETIC PERIPHERAL NEUROPATHY 02/26/2009 KELSIE VILLARREALN, JENNIFER L 300.00 anxiety 02/26/2009 KELSIE VILLARREALN, JENNIFER L 707.12 Chronic Cutaneous Ulcers Calf Right 02/26/2009 ALY BENITEZ, JEN A 250.60 DIABETES MELLITUS DIABETIC PERIPHERAL NEUROPATHY 02/26/2009 ALY BENITEZ, JEN A 300.00 anxiety 02/26/2009 ALY BENITEZ, JEN A 707.12 Chronic Cutaneous Ulcers Calf Right 02/26/2009 BOBENA VILLARREALN, JENNIFER L 250.60 DIABETES MELLITUS DIABETIC PERIPHERAL NEUROPATHY 02/26/2009 KELSIE RN BSN, JENNIFER L 300.00 anxiety 02/26/2009 KELSIE VILLARREALN, JENNIFER L 707.12 Chronic Cutaneous Ulcers Calf Right 02/26/2009 ROSE DO, GIGI K 250.60 DIABETES MELLITUS DIABETIC PERIPHERAL NEUROPATHY 02/26/2009 ROSE DO, GIGI K 300.00 anxiety 02/26/2009 ROSE DO, GIGI K 707.12 Chronic Cutaneous Ulcers Calf Right 02/26/2009 ALY BENITEZ, JEN A 250.60 DIABETES MELLITUS DIABETIC PERIPHERAL NEUROPATHY 02/26/2009 ALY PHD, JEN A 300.00 anxiety 02/26/2009 ALY BENITEZ, JEN Odom 707.12 Chronic Cutaneous Ulcers Calf Right 02/26/2009 ROSE DO, GIGI K 250.60 DIABETES MELLITUS DIABETIC PERIPHERAL NEUROPATHY 02/26/2009 ROSE DO, GIGI K 300.00 anxiety 02/26/2009 ROSE DO, GIGI K 707.12 Chronic Cutaneous Ulcers Calf Right 02/26/2009 ALY BENITEZ, JEN A 250.60 DIABETES MELLITUS DIABETIC PERIPHERAL NEUROPATHY 02/26/2009 ALY PHD, JEN A 300.00 anxiety 02/26/2009 ALY BENITEZ, JEN A 707.12 Chronic Cutaneous Ulcers Calf Right 02/26/2009 ALY BENITEZ, JEN A 250.60 DIABETES MELLITUS DIABETIC PERIPHERAL NEUROPATHY 02/26/2009 ALY PHD, JEN A 300.00 anxiety 02/26/2009 ALY PHD, JEN A 707.12 Chronic Cutaneous Ulcers Calf Right 02/26/2009 ROSE DO, GIGI K 250.60 DIABETES MELLITUS DIABETIC PERIPHERAL NEUROPATHY 02/26/2009 ROSE DO, GIGI K 300.00 anxiety 02/26/2009 ROSE DO, GIGI K 707.12 Chronic Cutaneous Ulcers Calf Right 02/26/2009 JEN LU PHD A 250.60 DIABETES MELLITUS DIABETIC PERIPHERAL NEUROPATHY 02/26/2009 ALY BENITEZ, JEN A 300.00 anxiety 02/26/2009 ALY BENITEZ, JEN A 707.12 Chronic Cutaneous Ulcers Calf Right 02/26/2009 KELSIE GILLESPIE, JENNIFER L 250.60 DIABETES MELLITUS DIABETIC PERIPHERAL NEUROPATHY 02/26/2009 EATENA RN BSN, JENNIFER L 300.00 anxiety 02/26/2009 EATON RN BSN, JENNIFER L 707.12 Chronic Cutaneous Ulcers Calf Right 02/26/2009 ALY BENITEZ, JEN A 250.60 DIABETES MELLITUS DIABETIC PERIPHERAL NEUROPATHY 02/26/2009 ALY BENITEZ, JEN A 300.00 anxiety 02/26/2009 ALY BENITEZ, JEN A 707.12 Chronic Cutaneous Ulcers Calf Right 02/26/2009 TRAE DPM, GINA 250.60 DIABETES MELLITUS DIABETIC PERIPHERAL NEUROPATHY 02/26/2009 TRAE DPM, GINA 300.00 anxiety 02/26/2009 TRAE DPM, GINA 707.12 Chronic Cutaneous Ulcers Calf Right 02/26/2009 ROSE DO, GIGI K 250.60 DIABETES MELLITUS DIABETIC PERIPHERAL NEUROPATHY 02/26/2009 ROSE DO, GIGI K 300.00 anxiety 02/26/2009 ROSE DO, GIGI K 707.12 Chronic Cutaneous Ulcers Calf Right 02/26/2009 KELSIE GILLESPIE, JENNIFER L 250.60 DIABETES MELLITUS DIABETIC PERIPHERAL NEUROPATHY 02/26/2009 KELSIE GILLESPIE, JENNIFER L 300.00 anxiety 02/26/2009 KELSIE GILLESPIE, JENNIFER L 707.12 Chronic Cutaneous Ulcers Calf Right 02/26/2009 JEN LU PHD A 250.60 DIABETES MELLITUS DIABETIC PERIPHERAL NEUROPATHY 02/26/2009 ALY BENITEZ, JEN A 300.00 anxiety 02/26/2009 ALY BENITEZ, JEN A 707.12 Chronic Cutaneous Ulcers Calf Right 02/26/2009 ROSE DO, GIGI K 250.60 DIABETES MELLITUS DIABETIC PERIPHERAL NEUROPATHY 02/26/2009 ROSE DO, GIGI K 300.00 anxiety 02/26/2009 ROSE DO, GIGI K 707.12 Chronic Cutaneous Ulcers Calf Right 02/26/2009 JEN LU PHD A 250.60 DIABETES MELLITUS DIABETIC PERIPHERAL NEUROPATHY 02/26/2009 ALY BENITEZ, JEN Odom 300.00 anxiety 02/26/2009 ALY BENITEZ, JEN Odom 707.12 Chronic Cutaneous Ulcers Calf Right 02/26/2009 ALY BENITEZ, JEN Odom 250.60 DIABETES MELLITUS DIABETIC PERIPHERAL NEUROPATHY 02/26/2009 ALY BENITEZ, JEN Odom 300.00 anxiety 02/26/2009 ALY BENITEZ, JEN Odom 707.12 Chronic Cutaneous Ulcers Calf Right 03/30/2009 ALY BENITEZ, JEN Odom 552.3 HIATAL HERNIA WITH OBSTRUCTION 03/30/2009 552.3 HIATAL HERNIA WITH OBSTRUCTION 03/30/2009 552.3 HIATAL HERNIA WITH OBSTRUCTION 03/30/2009 JENNIFER SANDERSON, JOSEFINA 552.3 HIATAL HERNIA WITH OBSTRUCTION 03/30/2009 552.3 HIATAL HERNIA WITH OBSTRUCTION 03/30/2009 JEN LU PHD 552.3 HIATAL HERNIA WITH OBSTRUCTION 03/30/2009 JOSEFINA RODRIGUEZ MD 552.3 HIATAL HERNIA WITH OBSTRUCTION 03/30/2009 JENNIFER IGLESIAS APRN 552.3 HIATAL HERNIA WITH OBSTRUCTION 03/30/2009 552.3 HIATAL HERNIA WITH OBSTRUCTION 03/30/2009 JOSEFINA RODRIGUEZ MD 552.3 HIATAL HERNIA WITH OBSTRUCTION 03/30/2009 JOSEFINA RODRIGUEZ MD 552.3 HIATAL HERNIA WITH OBSTRUCTION 03/30/2009 552.3 HIATAL HERNIA WITH OBSTRUCTION 03/30/2009 JOSEFINA RODRIGUEZ MD 552.3 HIATAL HERNIA WITH OBSTRUCTION 03/30/2009 MOSHE BEAULIEU 552.3 HIATAL HERNIA WITH OBSTRUCTION 03/30/2009 JENNIFER IGLESIAS APRN 552.3 HIATAL HERNIA WITH OBSTRUCTION 03/30/2009 552.3 HIATAL HERNIA WITH OBSTRUCTION 03/30/2009 552.3 HIATAL HERNIA WITH OBSTRUCTION 03/30/2009 552.3 HIATAL HERNIA WITH OBSTRUCTION 03/30/2009 552.3 HIATAL HERNIA WITH OBSTRUCTION 03/30/2009 552.3 HIATAL HERNIA WITH OBSTRUCTION 03/30/2009 552.3 HIATAL HERNIA WITH OBSTRUCTION 03/30/2009 552.3 HIATAL HERNIA WITH OBSTRUCTION 03/30/2009 552.3 HIATAL HERNIA WITH OBSTRUCTION 03/30/2009 552.3 HIATAL HERNIA WITH OBSTRUCTION 03/30/2009 552.3 HIATAL HERNIA WITH OBSTRUCTION 03/30/2009 552.3 HIATAL HERNIA WITH OBSTRUCTION 03/30/2009 552.3 HIATAL HERNIA WITH OBSTRUCTION 03/30/2009 DANIEL ROSE DOA K 552.3 HIATAL HERNIA WITH OBSTRUCTION 03/30/2009 ALY PHD, JEN A 552.3 HIATAL HERNIA WITH OBSTRUCTION 03/30/2009 LATASHA GRIJALVA APRN 552.3 HIATAL HERNIA WITH OBSTRUCTION 03/30/2009 ROSE DO GIGI K 552.3 HIATAL HERNIA WITH OBSTRUCTION 03/30/2009 BOEANSHUL PHD, JEN A 552.3 HIATAL HERNIA WITH OBSTRUCTION 03/30/2009 DANIEL ROSE DOA K 552.3 HIATAL HERNIA WITH OBSTRUCTION 03/30/2009 EATENA GILLESPIE, JENNIFER L 552.3 HIATAL HERNIA WITH OBSTRUCTION 03/30/2009 ALY PHD, JEN A 552.3 HIATAL HERNIA WITH OBSTRUCTION 03/30/2009 EATON JOSE MIGUEL, JENNIFER L 552.3 HIATAL HERNIA WITH OBSTRUCTION 03/30/2009 ALY PHD, JEN A 552.3 HIATAL HERNIA WITH OBSTRUCTION 03/30/2009 EATON JOSE MIGUEL, JENNIFER L 552.3 HIATAL HERNIA WITH OBSTRUCTION 03/30/2009 ALY PHD, JEN A 552.3 HIATAL HERNIA WITH OBSTRUCTION 03/30/2009 GIGI ROSE DO K 552.3 HIATAL HERNIA WITH OBSTRUCTION 03/30/2009 EATENA GILELSPIE, JENNIFER L 552.3 HIATAL HERNIA WITH OBSTRUCTION 03/30/2009 ALY PHD, JEN A 552.3 HIATAL HERNIA WITH OBSTRUCTION 03/30/2009 DANIEL ROSE DOA K 552.3 HIATAL HERNIA WITH OBSTRUCTION 03/30/2009 EATON JOSE MIGUEL, JENNIFER L 552.3 HIATAL HERNIA WITH OBSTRUCTION 03/30/2009 BOEANSHUL PHD, JEN A 552.3 HIATAL HERNIA WITH OBSTRUCTION 03/30/2009 EATON JOSE MIGUEL, JENNIFER L 552.3 HIATAL HERNIA WITH OBSTRUCTION 03/30/2009 BOEANSHUL BENITEZ, JEN A 552.3 HIATAL HERNIA WITH OBSTRUCTION 03/30/2009 EATON JOSE MIGUEL, JENNIFER L 552.3 HIATAL HERNIA WITH OBSTRUCTION 03/30/2009 ROSE DO, GIGI K 552.3 HIATAL HERNIA WITH OBSTRUCTION 03/30/2009 BOEKHOUT PHD, JEN A 552.3 HIATAL HERNIA WITH OBSTRUCTION 03/30/2009 ROSE DO, GIGI K 552.3 HIATAL HERNIA WITH OBSTRUCTION 03/30/2009 BOEKHOUT PHD, JEN A 552.3 HIATAL HERNIA WITH OBSTRUCTION 03/30/2009 BOEKHOUT PHD, JEN A 552.3 HIATAL HERNIA WITH OBSTRUCTION 03/30/2009 ROSE DO, GIGI K 552.3 HIATAL HERNIA WITH OBSTRUCTION 03/30/2009 BOEKHOUT PHD, JEN A 552.3 HIATAL HERNIA WITH OBSTRUCTION 03/30/2009 JENNIFER IGLESIAS APRN L 552.3 HIATAL HERNIA WITH OBSTRUCTION 03/30/2009 BOEKHOUT PHD, JEN A 552.3 HIATAL HERNIA WITH OBSTRUCTION 03/30/2009 TRAE DPM, GINA 552.3 HIATAL HERNIA WITH OBSTRUCTION 03/30/2009 ROSE DO, GIGI K 552.3 HIATAL HERNIA WITH OBSTRUCTION 03/30/2009 JENNIFER IGLESIAS APRN L 552.3 HIATAL HERNIA WITH OBSTRUCTION 03/30/2009 BOEGIGIOUT PHD, JEN A 552.3 HIATAL HERNIA WITH OBSTRUCTION 03/30/2009 ROSE DO, GIGI K 552.3 HIATAL HERNIA WITH OBSTRUCTION 03/30/2009 BOEGIGIOUT PHD, JEN A 552.3 HIATAL HERNIA WITH OBSTRUCTION 03/30/2009 BOEGIGIOUT PHD, JEN A 552.3 HIATAL HERNIA WITH OBSTRUCTION 04/06/2009 ALY BENITEZ, JEN A 465.9 Acute Upper Respiratory Infections Of Unspecified Site 04/06/2009 465.9 Acute Upper Respiratory Infections Of Unspecified Site 04/06/2009 465.9 Acute Upper Respiratory Infections Of Unspecified Site 04/06/2009 JOSEFINA RODRIGUEZ MD 465.9 Acute Upper Respiratory Infections Of Unspecified Site 04/06/2009 465.9 Acute Upper Respiratory Infections Of Unspecified Site 04/06/2009 JEN LU PHD 465.9 Acute Upper Respiratory Infections Of Unspecified Site 04/06/2009 JOSEFINA RODRIGUEZ MD 465.9 Acute Upper Respiratory Infections Of Unspecified Site 04/06/2009 JENNIFER IGLESIAS APRN L 465.9 Acute Upper Respiratory Infections Of Unspecified Site 04/06/2009 465.9 Acute Upper Respiratory Infections Of Unspecified Site 04/06/2009 JOSEFINA RODRIGUEZ MD 465.9 Acute Upper Respiratory Infections Of Unspecified Site 04/06/2009 JOSEFINA RODRIGUEZ MD 465.9 Acute Upper Respiratory Infections Of Unspecified Site 04/06/2009 465.9 Acute Upper Respiratory Infections Of Unspecified Site 04/06/2009 JOSEFINA RODRIGUEZ MD 465.9 Acute Upper Respiratory Infections Of Unspecified Site 04/06/2009 MOSHE BEAULIEU 465.9 Acute Upper Respiratory Infections Of Unspecified Site 04/06/2009 JENNIFER IGLESIAS APRN L 465.9 Acute Upper Respiratory Infections Of Unspecified Site 04/06/2009 465.9 Acute Upper Respiratory Infections Of Unspecified Site 04/06/2009 465.9 Acute Upper Respiratory Infections Of Unspecified Site 04/06/2009 465.9 Acute Upper Respiratory Infections Of Unspecified Site 04/06/2009 465.9 Acute Upper Respiratory Infections Of Unspecified Site 04/06/2009 465.9 Acute Upper Respiratory Infections Of Unspecified Site 04/06/2009 465.9 Acute Upper Respiratory Infections Of Unspecified Site 04/06/2009 465.9 Acute Upper Respiratory Infections Of Unspecified Site 04/06/2009 465.9 Acute Upper Respiratory Infections Of Unspecified Site 04/06/2009 465.9 Acute Upper Respiratory Infections Of Unspecified Site 04/06/2009 465.9 Acute Upper Respiratory Infections Of Unspecified Site 04/06/2009 465.9 Acute Upper Respiratory Infections Of Unspecified Site 04/06/2009 465.9 Acute Upper Respiratory Infections Of Unspecified Site 04/06/2009 ROSE DO GIGI K 465.9 Acute Upper Respiratory Infections Of Unspecified Site 04/06/2009 ALY BENITEZ, JEN Odom 465.9 Acute Upper Respiratory Infections Of Unspecified Site 04/06/2009 LATASHA GRIJALVA APRN 465.9 Acute Upper Respiratory Infections Of Unspecified Site 04/06/2009 ROSE DO GIGI K 465.9 Acute Upper Respiratory Infections Of Unspecified Site 04/06/2009 ALY BENITEZ, JEN Odom 465.9 Acute Upper Respiratory Infections Of Unspecified Site 04/06/2009 ROSE DO GIGI K 465.9 Acute Upper Respiratory Infections Of Unspecified Site 04/06/2009 JENNIFER IGLESIAS APRN L 465.9 Acute Upper Respiratory Infections Of Unspecified Site 04/06/2009 ALY BENITEZ, JEN A 465.9 Acute Upper Respiratory Infections Of Unspecified Site 04/06/2009 EATON RN BSN, JENNIFER L 465.9 Acute Upper Respiratory Infections Of Unspecified Site 04/06/2009 BOEGIGIOUT PHD, JEN A 465.9 Acute Upper Respiratory Infections Of Unspecified Site 04/06/2009 EATON RN BSN, JENNIFER L 465.9 Acute Upper Respiratory Infections Of Unspecified Site 04/06/2009 ALY PHD, JEN A 465.9 Acute Upper Respiratory Infections Of Unspecified Site 04/06/2009 ROSE DO, GIGI K 465.9 Acute Upper Respiratory Infections Of Unspecified Site 04/06/2009 EATON RN BSN, JENNIFER L 465.9 Acute Upper Respiratory Infections Of Unspecified Site 04/06/2009 ALY PHD, JEN A 465.9 Acute Upper Respiratory Infections Of Unspecified Site 04/06/2009 ROSE DO, GIGI K 465.9 Acute Upper Respiratory Infections Of Unspecified Site 04/06/2009 EATON RN BSN, JENNIFER L 465.9 Acute Upper Respiratory Infections Of Unspecified Site 04/06/2009 ALY BENITEZ, JEN A 465.9 Acute Upper Respiratory Infections Of Unspecified Site 04/06/2009 EATON RN BSN, JENNIFER L 465.9 Acute Upper Respiratory Infections Of Unspecified Site 04/06/2009 ALY BENITEZ, JEN A 465.9 Acute Upper Respiratory Infections Of Unspecified Site 04/06/2009 EATON RN BSN, JENNIFER L 465.9 Acute Upper Respiratory Infections Of Unspecified Site 04/06/2009 ROSE DO, GIGI K 465.9 Acute Upper Respiratory Infections Of Unspecified Site 04/06/2009 ALY BENITEZ, JEN A 465.9 Acute Upper Respiratory Infections Of Unspecified Site 04/06/2009 ROSE DO, GIGI K 465.9 Acute Upper Respiratory Infections Of Unspecified Site 04/06/2009 ALY BENITEZ, JEN A 465.9 Acute Upper Respiratory Infections Of Unspecified Site 04/06/2009 ALY BENITEZ, JEN A 465.9 Acute Upper Respiratory Infections Of Unspecified Site 04/06/2009 ROSE DO, GIGI K 465.9 Acute Upper Respiratory Infections Of Unspecified Site 04/06/2009 ALY BENITEZ, JEN A 465.9 Acute Upper Respiratory Infections Of Unspecified Site 04/06/2009 EATON RN BSN, JENNIFER L 465.9 Acute Upper Respiratory Infections Of Unspecified Site 04/06/2009 BOEANSHUL PHD, JEN A 465.9 Acute Upper Respiratory Infections Of Unspecified Site 04/06/2009 TRAE DPM, GINA 465.9 Acute Upper Respiratory Infections Of Unspecified Site 04/06/2009 ROSE DO, GIGI K 465.9 Acute Upper Respiratory Infections Of Unspecified Site 04/06/2009 EATON RN BSN, JENNIFER L 465.9 Acute Upper Respiratory Infections Of Unspecified Site 04/06/2009 BOEANSHUL PHD, JEN A 465.9 Acute Upper Respiratory Infections Of Unspecified Site 04/06/2009 ROSE DO, GIGI K 465.9 Acute Upper Respiratory Infections Of Unspecified Site 04/06/2009 BOEGIGIOUT PHD, JEN A 465.9 Acute Upper Respiratory Infections Of Unspecified Site 04/06/2009 BOEGIGIOUT PHD, JEN A 465.9 Acute Upper Respiratory Infections Of Unspecified Site 04/27/2009 ALY BENITEZ, JEN A 278.00 OBESITY 04/27/2009 ALY BENITEZ, JEN A 780.52 INSOMNIA, UNSPECIFIED 04/27/2009 ALY PHD, JEN A 787.20 Dysphagia, Unspecified 04/27/2009 278.00 OBESITY 04/27/2009 780.52 INSOMNIA, UNSPECIFIED 04/27/2009 787.20 Dysphagia, Unspecified 04/27/2009 278.00 OBESITY 04/27/2009 780.52 INSOMNIA, UNSPECIFIED 04/27/2009 787.20 Dysphagia, Unspecified 04/27/2009 JOSEFINA RODRIGUEZ MD 278.00 OBESITY 04/27/2009 JOSEFINA RODRIGUEZ MD 780.52 INSOMNIA, UNSPECIFIED 04/27/2009 JOSEFINA RODRIGUEZ MD 787.20 Dysphagia, Unspecified 04/27/2009 278.00 OBESITY 04/27/2009 780.52 INSOMNIA, UNSPECIFIED 04/27/2009 787.20 Dysphagia, Unspecified 04/27/2009 JEN LU PHD A 278.00 OBESITY 04/27/2009 ALY BENITEZ, JEN A 780.52 INSOMNIA, UNSPECIFIED 04/27/2009 ALY BENITEZ, JEN A 787.20 Dysphagia, Unspecified 04/27/2009 JOSEFINA RODRIGUEZ MD 278.00 OBESITY 04/27/2009 JOSEFINA RODRIGUEZ MD 780.52 INSOMNIA, UNSPECIFIED 04/27/2009 JENNIFER SANDERSON, JOSEFINA 787.20 Dysphagia, Unspecified 04/27/2009 EATON RN BSN, JENNIFER L 278.00 OBESITY 04/27/2009 EATON RN BSN, JENNIFER L 780.52 INSOMNIA, UNSPECIFIED 04/27/2009 EATON RN BSN, JENNIFER L 787.20 Dysphagia, Unspecified 04/27/2009 278.00 OBESITY 04/27/2009 780.52 INSOMNIA, UNSPECIFIED 04/27/2009 787.20 Dysphagia, Unspecified 04/27/2009 JOSEFINA RODRIGUEZ MD 278.00 OBESITY 04/27/2009 JOSEFINA RODRIGUEZ MD 780.52 INSOMNIA, UNSPECIFIED 04/27/2009 JOSEFINA RODRIGUEZ MD 787.20 Dysphagia, Unspecified 04/27/2009 JOSEFINA RODRIGUEZ MD 278.00 OBESITY 04/27/2009 JOSEFINA RODRIGUEZ MD 780.52 INSOMNIA, UNSPECIFIED 04/27/2009 JOSEFINA RODRIGUEZ MD 787.20 Dysphagia, Unspecified 04/27/2009 278.00 OBESITY 04/27/2009 780.52 INSOMNIA, UNSPECIFIED 04/27/2009 787.20 Dysphagia, Unspecified 04/27/2009 JOSEFINA RODRIGUEZ MD 278.00 OBESITY 04/27/2009 JOSEFINA RODRIGUEZ MD 780.52 INSOMNIA, UNSPECIFIED 04/27/2009 JOSEFINA RODRIGUEZ MD 787.20 Dysphagia, Unspecified 04/27/2009 BAQIR, MOSHE 278.00 OBESITY 04/27/2009 BAQIR, MOSHE 780.52 INSOMNIA, UNSPECIFIED 04/27/2009 BAQIR, MOSHE 787.20 Dysphagia, Unspecified 04/27/2009 EATON RN BSN, JENNIFER L 278.00 OBESITY 04/27/2009 EATON RN BSN, JENNIFER L 780.52 INSOMNIA, UNSPECIFIED 04/27/2009 EATON RN BSN, JENNIFER L 787.20 Dysphagia, Unspecified 04/27/2009 278.00 OBESITY 04/27/2009 780.52 INSOMNIA, UNSPECIFIED 04/27/2009 787.20 Dysphagia, Unspecified 04/27/2009 278.00 OBESITY 04/27/2009 780.52 INSOMNIA, UNSPECIFIED 04/27/2009 787.20 Dysphagia, Unspecified 04/27/2009 278.00 OBESITY 04/27/2009 780.52 INSOMNIA, UNSPECIFIED 04/27/2009 787.20 Dysphagia, Unspecified 04/27/2009 278.00 OBESITY 04/27/2009 780.52 INSOMNIA, UNSPECIFIED 04/27/2009 787.20 Dysphagia, Unspecified 04/27/2009 278.00 OBESITY 04/27/2009 780.52 INSOMNIA, UNSPECIFIED 04/27/2009 787.20 Dysphagia, Unspecified 04/27/2009 278.00 OBESITY 04/27/2009 780.52 INSOMNIA, UNSPECIFIED 04/27/2009 787.20 Dysphagia, Unspecified 04/27/2009 278.00 OBESITY 04/27/2009 780.52 INSOMNIA, UNSPECIFIED 04/27/2009 787.20 Dysphagia, Unspecified 04/27/2009 278.00 OBESITY 04/27/2009 780.52 INSOMNIA, UNSPECIFIED 04/27/2009 787.20 Dysphagia, Unspecified 04/27/2009 278.00 OBESITY 04/27/2009 780.52 INSOMNIA, UNSPECIFIED 04/27/2009 787.20 Dysphagia, Unspecified 04/27/2009 278.00 OBESITY 04/27/2009 780.52 INSOMNIA, UNSPECIFIED 04/27/2009 787.20 Dysphagia, Unspecified 04/27/2009 278.00 OBESITY 04/27/2009 780.52 INSOMNIA, UNSPECIFIED 04/27/2009 787.20 Dysphagia, Unspecified 04/27/2009 278.00 OBESITY 04/27/2009 780.52 INSOMNIA, UNSPECIFIED 04/27/2009 787.20 Dysphagia, Unspecified 04/27/2009 ROSE DO GIGI K 278.00 OBESITY 04/27/2009 ROSE DO, GIGI K 780.52 INSOMNIA, UNSPECIFIED 04/27/2009 ROSE DO GIGI K 787.20 Dysphagia, Unspecified 04/27/2009 ALY PHD, JEN A 278.00 OBESITY 04/27/2009 ALY PHD, JEN Odom 780.52 INSOMNIA, UNSPECIFIED 04/27/2009 ALY BENITEZ, JEN Odom 787.20 Dysphagia, Unspecified 04/27/2009 MADYSON GRIJALVA APRNNDA S 278.00 OBESITY 04/27/2009 MADYSON GRIJALVA APRNNDA S 780.52 INSOMNIA, UNSPECIFIED 04/27/2009 VALENTINE GILLESPIE, LATASHA S 787.20 Dysphagia, Unspecified 04/27/2009 ROSE DO GIGI K 278.00 OBESITY 04/27/2009 ROSE DO, GIGI K 780.52 INSOMNIA, UNSPECIFIED 04/27/2009 ROSE DO, GIGI K 787.20 Dysphagia, Unspecified 04/27/2009 BOEKHOUT PHD, JEN A 278.00 OBESITY 04/27/2009 BOEKHOUT PHD, JEN A 780.52 INSOMNIA, UNSPECIFIED 04/27/2009 BOEKHOUT PHD, JEN A 787.20 Dysphagia, Unspecified 04/27/2009 ROSE DO, GIGI K 278.00 OBESITY 04/27/2009 ROSE DO, GIGI K 780.52 INSOMNIA, UNSPECIFIED 04/27/2009 ROSE DO, GIGI K 787.20 Dysphagia, Unspecified 04/27/2009 EATON RN BSN, JENNIFER L 278.00 OBESITY 04/27/2009 EATON RN BSN, JENNIFER L 780.52 INSOMNIA, UNSPECIFIED 04/27/2009 EATON RN BSN, JENNIFER L 787.20 Dysphagia, Unspecified 04/27/2009 BOEKHOUT PHD, JEN A 278.00 OBESITY 04/27/2009 BOEOUT PHD, JEN A 780.52 INSOMNIA, UNSPECIFIED 04/27/2009 [facility] PHD, JEN A 787.20 Dysphagia, Unspecified 04/27/2009 EATON RN BSN, JENNIFER L 278.00 OBESITY 04/27/2009 EATON RN BSN, JENNIFER L 780.52 INSOMNIA, UNSPECIFIED 04/27/2009 EATON RN BSN, JENNIFER L 787.20 Dysphagia, Unspecified 04/27/2009 BOEKHOUT PHD, JEN A 278.00 OBESITY 04/27/2009 BOEKHOUT PHD, JEN A 780.52 INSOMNIA, UNSPECIFIED 04/27/2009 BOEKHOUT PHD, JEN A 787.20 Dysphagia, Unspecified 04/27/2009 EATON RN BSN, JENNIFER L 278.00 OBESITY 04/27/2009 EATON RN BSN, JENNIFER L 780.52 INSOMNIA, UNSPECIFIED 04/27/2009 EATON RN BSN, JENNIFER L 787.20 Dysphagia, Unspecified 04/27/2009 BOEKHOUT PHD, JEN A 278.00 OBESITY 04/27/2009 BOEKHOUT PHD, JEN A 780.52 INSOMNIA, UNSPECIFIED 04/27/2009 BOEKHOUT PHD, JEN A 787.20 Dysphagia, Unspecified 04/27/2009 ROSE DO, GIGI K 278.00 OBESITY 04/27/2009 ROSE DO, GIGI K 780.52 INSOMNIA, UNSPECIFIED 04/27/2009 ROSE DO, GIGI K 787.20 Dysphagia, Unspecified 04/27/2009 EATON RN BSN, JENNIFER L 278.00 OBESITY 04/27/2009 EATON RN BSN, JENNIFER L 780.52 INSOMNIA, UNSPECIFIED 04/27/2009 EATON RN BSN, JENNIFER L 787.20 Dysphagia, Unspecified 04/27/2009 BOEGIGIOUT PHD, JEN A 278.00 OBESITY 04/27/2009 BOEOUT PHD, JEN A 780.52 INSOMNIA, UNSPECIFIED 04/27/2009 BOEKHOUT PHD, JEN A 787.20 Dysphagia, Unspecified 04/27/2009 ROSE DO, GIGI K 278.00 OBESITY 04/27/2009 ROSE DO, GIGI K 780.52 INSOMNIA, UNSPECIFIED 04/27/2009 ROSE DO, GIGI K 787.20 Dysphagia, Unspecified 04/27/2009 EATON RN BSN, JENNIFER L 278.00 OBESITY 04/27/2009 EATON RN BSN, JENNIFER L 780.52 INSOMNIA, UNSPECIFIED 04/27/2009 EATON RN BSN, JENNIFER L 787.20 Dysphagia, Unspecified 04/27/2009 BOEKHOUT PHD, JEN A 278.00 OBESITY 04/27/2009 BOEKHOUT PHD, JEN A 780.52 INSOMNIA, UNSPECIFIED 04/27/2009 BOEKHOUT PHD, JEN A 787.20 Dysphagia, Unspecified 04/27/2009 EATON RN BSN, JENNIFER L 278.00 OBESITY 04/27/2009 EATON RN BSN, JENNIFER L 780.52 INSOMNIA, UNSPECIFIED 04/27/2009 EATON RN BSN, JENNIFER L 787.20 Dysphagia, Unspecified 04/27/2009 BOEKHOUT PHD, JEN A 278.00 OBESITY 04/27/2009 BOEKHOUT PHD, JEN A 780.52 INSOMNIA, UNSPECIFIED 04/27/2009 BOEKHOUT PHD, JEN A 787.20 Dysphagia, Unspecified 04/27/2009 EATON RN BSN, JENNIFER L 278.00 OBESITY 04/27/2009 EATON RN BSN, JENNIFER L 780.52 INSOMNIA, UNSPECIFIED 04/27/2009 EATON RN BSN, JENNIFER L 787.20 Dysphagia, Unspecified 04/27/2009 ROSE DO, GIGI K 278.00 OBESITY 04/27/2009 ROSE DO, GIGI K 780.52 INSOMNIA, UNSPECIFIED 04/27/2009 ROSE DO, GIGI K 787.20 Dysphagia, Unspecified 04/27/2009 BOEKHOUT PHD, JEN A 278.00 OBESITY 04/27/2009 BOEKHOUT PHD, JEN A 780.52 INSOMNIA, UNSPECIFIED 04/27/2009 BOEKHOUT PHD, JEN A 787.20 Dysphagia, Unspecified 04/27/2009 ROSE DO, GIGI K 278.00 OBESITY 04/27/2009 ROSE DO, GIGI K 780.52 INSOMNIA, UNSPECIFIED 04/27/2009 ROSE DO, GIGI K 787.20 Dysphagia, Unspecified 04/27/2009 BOEKHOUT PHD, JEN A 278.00 OBESITY 04/27/2009 BOEKHOUT PHD, JEN A 780.52 INSOMNIA, UNSPECIFIED 04/27/2009 BOEKHOUT PHD, JEN A 787.20 Dysphagia, Unspecified 04/27/2009 BOEKHOUT PHD, JEN A 278.00 OBESITY 04/27/2009 BOEKHOUT PHD, JEN A 780.52 INSOMNIA, UNSPECIFIED 04/27/2009 BOEKHOUT PHD, JEN A 787.20 Dysphagia, Unspecified 04/27/2009 ROSE DO, GIGI K 278.00 OBESITY 04/27/2009 ROSE DO, GIGI K 780.52 INSOMNIA, UNSPECIFIED 04/27/2009 ROSE DO, GIGI K 787.20 Dysphagia, Unspecified 04/27/2009 BOEKHOUT PHD, JEN A 278.00 OBESITY 04/27/2009 BOEKHOUT PHD, JEN A 780.52 INSOMNIA, UNSPECIFIED 04/27/2009 BOEKHOUT PHD, JEN A 787.20 Dysphagia, Unspecified 04/27/2009 EATON RN BSN, JENNIFER L 278.00 OBESITY 04/27/2009 EATON RN BSN, JENNIFER L 780.52 INSOMNIA, UNSPECIFIED 04/27/2009 EATON RN BSN, JENNIFER L 787.20 Dysphagia, Unspecified 04/27/2009 BOEKHOUT PHD, JEN A 278.00 OBESITY 04/27/2009 BOEKHOUT PHD, JEN A 780.52 INSOMNIA, UNSPECIFIED 04/27/2009 BOEKHOUT PHD, JEN A 787.20 Dysphagia, Unspecified 04/27/2009 TRAE DPM, GINA 278.00 OBESITY 04/27/2009 TRAE DPM, GINA 780.52 INSOMNIA, UNSPECIFIED 04/27/2009 TRAE DPM, GINA 787.20 Dysphagia, Unspecified 04/27/2009 ROSE DO, GIGI K 278.00 OBESITY 04/27/2009 ROSE DO, GIGI K 780.52 INSOMNIA, UNSPECIFIED 04/27/2009 ROSE DO, GIGI K 787.20 Dysphagia, Unspecified 04/27/2009 EATON RN BSN, JENNIFER L 278.00 OBESITY 04/27/2009 EATON RN BSN, JENNIFER L 780.52 INSOMNIA, UNSPECIFIED 04/27/2009 EATON RN BSN, JENNIFER L 787.20 Dysphagia, Unspecified 04/27/2009 ALY PHD, JEN Odom 278.00 OBESITY 04/27/2009 ALY PHD, JEN Odom 780.52 INSOMNIA, UNSPECIFIED 04/27/2009 ALY PHD, JEN Odom 787.20 Dysphagia, Unspecified 04/27/2009 ROSE DO, GIGI K 278.00 OBESITY 04/27/2009 ROSE DO, GIGI K 780.52 INSOMNIA, UNSPECIFIED 04/27/2009 ROSE DO, GIGI K 787.20 Dysphagia, Unspecified 04/27/2009 ALY PHD, JEN A 278.00 OBESITY 04/27/2009 BOEANSHUL PHD, JEN A 780.52 INSOMNIA, UNSPECIFIED 04/27/2009 ALY PHD, JEN A 787.20 Dysphagia, Unspecified 04/27/2009 BOEANSHUL PHD, JEN A 278.00 OBESITY 04/27/2009 BOEANSHUL PHD, JEN A 780.52 INSOMNIA, UNSPECIFIED 04/27/2009 ALY PHD, JEN A 787.20 Dysphagia, Unspecified 08/10/2009 ALY BENITEZ, JEN Odom 305.1 Nicotine Dependence 08/10/2009 ALY BENITEZ, JEN Odom 780.2 Presyncope Syndrome 08/10/2009 ALY BENITEZ, JEN Odom 786.50 Chest Pain Or Discomfort 08/10/2009 305.1 Nicotine Dependence 08/10/2009 780.2 Presyncope Syndrome 08/10/2009 786.50 Chest Pain Or Discomfort 08/10/2009 305.1 Nicotine Dependence 08/10/2009 780.2 Presyncope Syndrome 08/10/2009 786.50 Chest Pain Or Discomfort 08/10/2009 JOSEFINA RODRIGUEZ MD 305.1 Nicotine Dependence 08/10/2009 JOSEFINA RODRIGUEZ MD 780.2 Presyncope Syndrome 08/10/2009 JOSEFINA RODRIGUEZ MD 786.50 Chest Pain Or Discomfort 08/10/2009 305.1 Nicotine Dependence 08/10/2009 780.2 Presyncope Syndrome 08/10/2009 786.50 Chest Pain Or Discomfort 08/10/2009 ALY PHD, JEN A 305.1 Nicotine Dependence 08/10/2009 ALY PHD, JEN A 780.2 Presyncope Syndrome 08/10/2009 ALY PHD, JEN A 786.50 Chest Pain Or Discomfort 08/10/2009 JOSEFINA RODRIGUEZ MD 305.1 Nicotine Dependence 08/10/2009 JOSEFINA RODRIGUEZ MD 780.2 Presyncope Syndrome 08/10/2009 JOSEFINA RODRIGUEZ MD 786.50 Chest Pain Or Discomfort 08/10/2009 YINKA IGLESIAS APRNSON L 305.1 Nicotine Dependence 08/10/2009 KELSIE GILLESPIE JENNIFER L 780.2 Presyncope Syndrome 08/10/2009 YINKA IGLESIAS APRNSON L 786.50 Chest Pain Or Discomfort 08/10/2009 305.1 Nicotine Dependence 08/10/2009 780.2 Presyncope Syndrome 08/10/2009 786.50 Chest Pain Or Discomfort 08/10/2009 JOSEFINA RODRIGUEZ MD 305.1 Nicotine Dependence 08/10/2009 JOSEFINA RODRIGUEZ MD 780.2 Presyncope Syndrome 08/10/2009 JOSEFINA RODRIGUEZ MD 786.50 Chest Pain Or Discomfort 08/10/2009 JOSEFINA RODRIGUEZ MD 305.1 Nicotine Dependence 08/10/2009 JOSEFINA RODRIGUEZ MD 780.2 Presyncope Syndrome 08/10/2009 JOSEFINA RODRIGUEZ MD 786.50 Chest Pain Or Discomfort 08/10/2009 305.1 Nicotine Dependence 08/10/2009 780.2 Presyncope Syndrome 08/10/2009 786.50 Chest Pain Or Discomfort 08/10/2009 JOSEFINA RODRIGUEZ MD 305.1 Nicotine Dependence 08/10/2009 JOSEFINA RODRIGUEZ MD 780.2 Presyncope Syndrome 08/10/2009 JOSEFINA RODRIGUEZ MD 786.50 Chest Pain Or Discomfort 08/10/2009 BAQIR, MOSHE 305.1 Nicotine Dependence 08/10/2009 BAQIR, MOSHE 780.2 Presyncope Syndrome 08/10/2009 BAQIR, MOSHE 786.50 Chest Pain Or Discomfort 08/10/2009 JENNIFER IGLESIAS APRN L 305.1 Nicotine Dependence 08/10/2009 KELSIE GILLESPIE, JENNIFER L 780.2 Presyncope Syndrome 08/10/2009 KELSIE GILLESPIE, JENNIFER L 786.50 Chest Pain Or Discomfort 08/10/2009 305.1 Nicotine Dependence 08/10/2009 780.2 Presyncope Syndrome 08/10/2009 786.50 Chest Pain Or Discomfort 08/10/2009 305.1 Nicotine Dependence 08/10/2009 780.2 Presyncope Syndrome 08/10/2009 786.50 Chest Pain Or Discomfort 08/10/2009 305.1 Nicotine Dependence 08/10/2009 780.2 Presyncope Syndrome 08/10/2009 786.50 Chest Pain Or Discomfort 08/10/2009 305.1 Nicotine Dependence 08/10/2009 780.2 Presyncope Syndrome 08/10/2009 786.50 Chest Pain Or Discomfort 08/10/2009 305.1 Nicotine Dependence 08/10/2009 780.2 Presyncope Syndrome 08/10/2009 786.50 Chest Pain Or Discomfort 08/10/2009 305.1 Nicotine Dependence 08/10/2009 780.2 Presyncope Syndrome 08/10/2009 786.50 Chest Pain Or Discomfort 08/10/2009 305.1 Nicotine Dependence 08/10/2009 780.2 Presyncope Syndrome 08/10/2009 786.50 Chest Pain Or Discomfort 08/10/2009 305.1 Nicotine Dependence 08/10/2009 780.2 Presyncope Syndrome 08/10/2009 786.50 Chest Pain Or Discomfort 08/10/2009 305.1 Nicotine Dependence 08/10/2009 780.2 Presyncope Syndrome 08/10/2009 786.50 Chest Pain Or Discomfort 08/10/2009 305.1 Nicotine Dependence 08/10/2009 780.2 Presyncope Syndrome 08/10/2009 786.50 Chest Pain Or Discomfort 08/10/2009 305.1 Nicotine Dependence 08/10/2009 780.2 Presyncope Syndrome 08/10/2009 786.50 Chest Pain Or Discomfort 08/10/2009 305.1 Nicotine Dependence 08/10/2009 780.2 Presyncope Syndrome 08/10/2009 786.50 Chest Pain Or Discomfort 08/10/2009 ROSE DO, GIGI K 305.1 Nicotine Dependence 08/10/2009 ROSE DO, GIGI K 780.2 Presyncope Syndrome 08/10/2009 ROSE DO, GIGI K 786.50 Chest Pain Or Discomfort 08/10/2009 JEN LU PHD 305.1 Nicotine Dependence 08/10/2009 ALY PHD, JEN Odom 780.2 Presyncope Syndrome 08/10/2009 ALY PHD, JEN Odom 786.50 Chest Pain Or Discomfort 08/10/2009 VALENTINE RN BSN, LATASHA S 305.1 Nicotine Dependence 08/10/2009 VALENTINE RN BSN, LATASHA S 780.2 Presyncope Syndrome 08/10/2009 VALENTINE RN BSN, LATASHA S 786.50 Chest Pain Or Discomfort 08/10/2009 ROSE DO, GIGI K 305.1 Nicotine Dependence 08/10/2009 ROSE DO, GIGI K 780.2 Presyncope Syndrome 08/10/2009 ROSE DO, GIGI K 786.50 Chest Pain Or Discomfort 08/10/2009 ALY PHD, JEN A 305.1 Nicotine Dependence 08/10/2009 ALY PHD, JEN Odom 780.2 Presyncope Syndrome 08/10/2009 ALY BENITEZ, JEN Odom 786.50 Chest Pain Or Discomfort 08/10/2009 ROSE DO, GIGI K 305.1 Nicotine Dependence 08/10/2009 ROSE DO, GIGI K 780.2 Presyncope Syndrome 08/10/2009 ROSE DO, GIGI K 786.50 Chest Pain Or Discomfort 08/10/2009 EATON RN BSN, JENNIFER L 305.1 Nicotine Dependence 08/10/2009 EATON RN BSN, JENNIFER L 780.2 Presyncope Syndrome 08/10/2009 EATON RN BSN, JENNIFER L 786.50 Chest Pain Or Discomfort 08/10/2009 JEN LU PHD A 305.1 Nicotine Dependence 08/10/2009 JEN LU PHD A 780.2 Presyncope Syndrome 08/10/2009 ALY BENITEZ, JEN A 786.50 Chest Pain Or Discomfort 08/10/2009 EATON RN BSN, JENNIFER L 305.1 Nicotine Dependence 08/10/2009 EATON RN BSN, JENNIFER L 780.2 Presyncope Syndrome 08/10/2009 EATON RN BSN, JENNIFER L 786.50 Chest Pain Or Discomfort 08/10/2009 ALY PHD, JEN A 305.1 Nicotine Dependence 08/10/2009 ALY PHD, JEN A 780.2 Presyncope Syndrome 08/10/2009 ALY PHD, JEN A 786.50 Chest Pain Or Discomfort 08/10/2009 EATON RN BSN, JENNIFER L 305.1 Nicotine Dependence 08/10/2009 EATON RN BSN, JENNIFER L 780.2 Presyncope Syndrome 08/10/2009 EATON RN BSN, JENNIFER L 786.50 Chest Pain Or Discomfort 08/10/2009 BOEANSHUL PHD, JEN A 305.1 Nicotine Dependence 08/10/2009 BOEANSHUL PHD, JEN Odom 780.2 Presyncope Syndrome 08/10/2009 ALY PHD, JEN A 786.50 Chest Pain Or Discomfort 08/10/2009 ROSE DO, GIGI K 305.1 Nicotine Dependence 08/10/2009 ROSE DO, GIGI K 780.2 Presyncope Syndrome 08/10/2009 ROSE DO, GIGI K 786.50 Chest Pain Or Discomfort 08/10/2009 EATON RN BSN, JENNIFER L 305.1 Nicotine Dependence 08/10/2009 EATON RN BSN, JENNIFER L 780.2 Presyncope Syndrome 08/10/2009 EATON RN BSN, JENNIFER L 786.50 Chest Pain Or Discomfort 08/10/2009 ALY BENITEZ, JEN A 305.1 Nicotine Dependence 08/10/2009 JEN LU PHD 780.2 Presyncope Syndrome 08/10/2009 JEN LU PHD A 786.50 Chest Pain Or Discomfort 08/10/2009 ROSE DO, GIGI K 305.1 Nicotine Dependence 08/10/2009 ROSE DO, GIGI K 780.2 Presyncope Syndrome 08/10/2009 ROSE DO, GIGI K 786.50 Chest Pain Or Discomfort 08/10/2009 EATON RN BSN, JENNIFER L 305.1 Nicotine Dependence 08/10/2009 EATON RN BSN, JENNIFER L 780.2 Presyncope Syndrome 08/10/2009 EATON RN BSN, JENNIFER L 786.50 Chest Pain Or Discomfort 08/10/2009 JEN LU PHD A 305.1 Nicotine Dependence 08/10/2009 ALY BENITEZ, JEN A 780.2 Presyncope Syndrome 08/10/2009 BOEANSHUL PHD, JEN A 786.50 Chest Pain Or Discomfort 08/10/2009 EATON RN BSN, JENNIFER L 305.1 Nicotine Dependence 08/10/2009 EATON RN BSN, JENNIFER L 780.2 Presyncope Syndrome 08/10/2009 EATON RN BSN, JENNIFER L 786.50 Chest Pain Or Discomfort 08/10/2009 BOEANSHUL PHD, JEN A 305.1 Nicotine Dependence 08/10/2009 BOEGIGIOUT PHD, JEN A 780.2 Presyncope Syndrome 08/10/2009 BOEOUT PHD, JEN A 786.50 Chest Pain Or Discomfort 08/10/2009 EATON RN BSN, JENNIFER L 305.1 Nicotine Dependence 08/10/2009 EATON RN BSN, JENNIFER L 780.2 Presyncope Syndrome 08/10/2009 EATON RN BSN, JENNIFER L 786.50 Chest Pain Or Discomfort 08/10/2009 ROSE DO, GIGI K 305.1 Nicotine Dependence 08/10/2009 ROSE DO, GIGI K 780.2 Presyncope Syndrome 08/10/2009 ROSE DO, GIGI K 786.50 Chest Pain Or Discomfort 08/10/2009 BOEANSHUL PHD, JEN A 305.1 Nicotine Dependence 08/10/2009 BOEANSHUL PHD, JEN A 780.2 Presyncope Syndrome 08/10/2009 BOEANSHUL PHD, JEN A 786.50 Chest Pain Or Discomfort 08/10/2009 ROSE DO, GIGI K 305.1 Nicotine Dependence 08/10/2009 ROSE DO, GIGI K 780.2 Presyncope Syndrome 08/10/2009 ROSE DO, GIGI K 786.50 Chest Pain Or Discomfort 08/10/2009 BOEANSHUL PHD, JEN A 305.1 Nicotine Dependence 08/10/2009 BOEANSHUL PHD, JEN A 780.2 Presyncope Syndrome 08/10/2009 BOEANSHUL PHD, JEN A 786.50 Chest Pain Or Discomfort 08/10/2009 BOEANSHUL PHD, JEN A 305.1 Nicotine Dependence 08/10/2009 BOEGIGIOUT PHD, JEN A 780.2 Presyncope Syndrome 08/10/2009 BOEGIGIOUT PHD, JEN A 786.50 Chest Pain Or Discomfort 08/10/2009 ROSE DO, GIGI K 305.1 Nicotine Dependence 08/10/2009 ROSE DO, GIGI K 780.2 Presyncope Syndrome 08/10/2009 ROSE DO, GIGI K 786.50 Chest Pain Or Discomfort 08/10/2009 ALY PHDJEN 305.1 Nicotine Dependence 08/10/2009 BOEANSHUL PHD, JEN A 780.2 Presyncope Syndrome 08/10/2009 BOEGIGIOUT PHD, JEN A 786.50 Chest Pain Or Discomfort 08/10/2009 EATON RN BSN, JENNIFER L 305.1 Nicotine Dependence 08/10/2009 EATON RN BSN, JENNIFER L 780.2 Presyncope Syndrome 08/10/2009 EATON RN BSN, JENNIFER L 786.50 Chest Pain Or Discomfort 08/10/2009 ALY PHDJEN A 305.1 Nicotine Dependence 08/10/2009 ALY PHD, JEN Odom 780.2 Presyncope Syndrome 08/10/2009 BOEANSHUL PHD, JEN A 786.50 Chest Pain Or Discomfort 08/10/2009 TRAE DPM, GINA 305.1 Nicotine Dependence 08/10/2009 TRAE DPM, GINA 780.2 Presyncope Syndrome 08/10/2009 TRAE DPM, GINA 786.50 Chest Pain Or Discomfort 08/10/2009 ROSE DO, GIGI K 305.1 Nicotine Dependence 08/10/2009 ROSE DO, GIGI K 780.2 Presyncope Syndrome 08/10/2009 ROSE DO, GIGI K 786.50 Chest Pain Or Discomfort 08/10/2009 EATON RN BSN, JENNIFER L 305.1 Nicotine Dependence 08/10/2009 EATON RN BSN, JENNIFER L 780.2 Presyncope Syndrome 08/10/2009 EATON RN BSN, JENNIFER L 786.50 Chest Pain Or Discomfort 08/10/2009 ALY PHDJEN A 305.1 Nicotine Dependence 08/10/2009 BOEANSHUL BENITEZ, JEN A 780.2 Presyncope Syndrome 08/10/2009 JEN LU PHD A 786.50 Chest Pain Or Discomfort 08/10/2009 ROSE DO GIGI K 305.1 Nicotine Dependence 08/10/2009 ROSE DO, GIGI K 780.2 Presyncope Syndrome 08/10/2009 ROSE DO, GIGI K 786.50 Chest Pain Or Discomfort 08/10/2009 JNE LU PHD A 305.1 Nicotine Dependence 08/10/2009 JEN LU PHD 780.2 Presyncope Syndrome 08/10/2009 JEN LU PHD 786.50 Chest Pain Or Discomfort 08/10/2009 JEN LU PHD 305.1 Nicotine Dependence 08/10/2009 JEN LU PHD 780.2 Presyncope Syndrome 08/10/2009 JEN LU PHD 786.50 Chest Pain Or Discomfort 10/16/2009 JEN LU PHD 686.9 Unspecified Local Infection Of Skin And Subcutaneous Tissue 10/16/2009 686.9 Unspecified Local Infection Of Skin And Subcutaneous Tissue 10/16/2009 686.9 Unspecified Local Infection Of Skin And Subcutaneous Tissue 10/16/2009 JOSEFINA RODRIGUEZ MD 686.9 Unspecified Local Infection Of Skin And Subcutaneous Tissue 10/16/2009 686.9 Unspecified Local Infection Of Skin And Subcutaneous Tissue 10/16/2009 JEN LU PHD 686.9 Unspecified Local Infection Of Skin And Subcutaneous Tissue 10/16/2009 JOSEFINA RODRIGUEZ MD 686.9 Unspecified Local Infection Of Skin And Subcutaneous Tissue 10/16/2009 JENNIFER IGLESIAS APRN 686.9 Unspecified Local Infection Of Skin And Subcutaneous Tissue 10/16/2009 686.9 Unspecified Local Infection Of Skin And Subcutaneous Tissue 10/16/2009 JOSEFINA RODRIGUEZ MD 686.9 Unspecified Local Infection Of Skin And Subcutaneous Tissue 10/16/2009 JOSEFINA RODRIGUEZ MD 686.9 Unspecified Local Infection Of Skin And Subcutaneous Tissue 10/16/2009 686.9 Unspecified Local Infection Of Skin And Subcutaneous Tissue 10/16/2009 JOSEFINA RODRIGUEZ MD 686.9 Unspecified Local Infection Of Skin And Subcutaneous Tissue 10/16/2009 MOSHE BEAULIEU 686.9 Unspecified Local Infection Of Skin And Subcutaneous Tissue 10/16/2009 JENNIFER IGLESIAS APRN 686.9 Unspecified Local Infection Of Skin And Subcutaneous Tissue 10/16/2009 686.9 Unspecified Local Infection Of Skin And Subcutaneous Tissue 10/16/2009 686.9 Unspecified Local Infection Of Skin And Subcutaneous Tissue 10/16/2009 686.9 Unspecified Local Infection Of Skin And Subcutaneous Tissue 10/16/2009 686.9 Unspecified Local Infection Of Skin And Subcutaneous Tissue 10/16/2009 686.9 Unspecified Local Infection Of Skin And Subcutaneous Tissue 10/16/2009 686.9 Unspecified Local Infection Of Skin And Subcutaneous Tissue 10/16/2009 686.9 Unspecified Local Infection Of Skin And Subcutaneous Tissue 10/16/2009 686.9 Unspecified Local Infection Of Skin And Subcutaneous Tissue 10/16/2009 686.9 Unspecified Local Infection Of Skin And Subcutaneous Tissue 10/16/2009 686.9 Unspecified Local Infection Of Skin And Subcutaneous Tissue 10/16/2009 686.9 Unspecified Local Infection Of Skin And Subcutaneous Tissue 10/16/2009 686.9 Unspecified Local Infection Of Skin And Subcutaneous Tissue 10/16/2009 GIGI ROSE DO K 686.9 Unspecified Local Infection Of Skin And Subcutaneous Tissue 10/16/2009 JEN LU PHD 686.9 Unspecified Local Infection Of Skin And Subcutaneous Tissue 10/16/2009 LATASHA GRIJALVA APRN 686.9 Unspecified Local Infection Of Skin And Subcutaneous Tissue 10/16/2009 GIGI ROSE DO 686.9 Unspecified Local Infection Of Skin And Subcutaneous Tissue 10/16/2009 ALY BENITEZ, JEN Odom 686.9 Unspecified Local Infection Of Skin And Subcutaneous Tissue 10/16/2009 GIGI ROSE DO K 686.9 Unspecified Local Infection Of Skin And Subcutaneous Tissue 10/16/2009 JENNIFER IGLESIAS APRN 686.9 Unspecified Local Infection Of Skin And Subcutaneous Tissue 10/16/2009 ALY BENITEZ, JEN Odom 686.9 Unspecified Local Infection Of Skin And Subcutaneous Tissue 10/16/2009 JENNIFER IGLESIAS APRN 686.9 Unspecified Local Infection Of Skin And Subcutaneous Tissue 10/16/2009 ALY BENITEZ, JEN Odom 686.9 Unspecified Local Infection Of Skin And Subcutaneous Tissue 10/16/2009 JENNIFER IGLESIAS APRN 686.9 Unspecified Local Infection Of Skin And Subcutaneous Tissue 10/16/2009 JEN LU PHD 686.9 Unspecified Local Infection Of Skin And Subcutaneous Tissue 10/16/2009 GIGI ROSE DO K 686.9 Unspecified Local Infection Of Skin And Subcutaneous Tissue 10/16/2009 JENNIFER IGLESIAS APRN 686.9 Unspecified Local Infection Of Skin And Subcutaneous Tissue 10/16/2009 ALY BENITEZ, JEN A 686.9 Unspecified Local Infection Of Skin And Subcutaneous Tissue 10/16/2009 GIGI ROSE DO K 686.9 Unspecified Local Infection Of Skin And Subcutaneous Tissue 10/16/2009 JENNIFER IGLESIAS APRN 686.9 Unspecified Local Infection Of Skin And Subcutaneous Tissue 10/16/2009 ALY BENITEZ, JEN A 686.9 Unspecified Local Infection Of Skin And Subcutaneous Tissue 10/16/2009 JENNIFER IGLESIAS APRN 686.9 Unspecified Local Infection Of Skin And Subcutaneous Tissue 10/16/2009 BOEANSHUL BENITEZ, JEN A 686.9 Unspecified Local Infection Of Skin And Subcutaneous Tissue 10/16/2009 JENNIFER IGLESIAS APRN 686.9 Unspecified Local Infection Of Skin And Subcutaneous Tissue 10/16/2009 GIGI ROSE DO K 686.9 Unspecified Local Infection Of Skin And Subcutaneous Tissue 10/16/2009 ALY BENITEZ, JEN A 686.9 Unspecified Local Infection Of Skin And Subcutaneous Tissue 10/16/2009 ROSE DANIEL HERNANDEZA K 686.9 Unspecified Local Infection Of Skin And Subcutaneous Tissue 10/16/2009 ALY BENITEZ, JEN A 686.9 Unspecified Local Infection Of Skin And Subcutaneous Tissue 10/16/2009 ALY BENITEZ, JEN A 686.9 Unspecified Local Infection Of Skin And Subcutaneous Tissue 10/16/2009 GIGI ROSE DO K 686.9 Unspecified Local Infection Of Skin And Subcutaneous Tissue 10/16/2009 ALY BENITEZ, JEN A 686.9 Unspecified Local Infection Of Skin And Subcutaneous Tissue 10/16/2009 JENNIFER IGLESIAS APRN 686.9 Unspecified Local Infection Of Skin And Subcutaneous Tissue 10/16/2009 ALY BENITEZ, JEN A 686.9 Unspecified Local Infection Of Skin And Subcutaneous Tissue 10/16/2009 GINA ROBISON DPM 686.9 Unspecified Local Infection Of Skin And Subcutaneous Tissue 10/16/2009 ROSE DANIEL HERNANDEZA K 686.9 Unspecified Local Infection Of Skin And Subcutaneous Tissue 10/16/2009 JENNIFER IGLESIAS APRN L 686.9 Unspecified Local Infection Of Skin And Subcutaneous Tissue 10/16/2009 JEN LU PHD A 686.9 Unspecified Local Infection Of Skin And Subcutaneous Tissue 10/16/2009 ROSE GIGI HERNANDEZ Elvie 686.9 Unspecified Local Infection Of Skin And Subcutaneous Tissue 10/16/2009 JEN LU PHD 686.9 Unspecified Local Infection Of Skin And Subcutaneous Tissue 10/16/2009 JEN LU PHD 686.9 Unspecified Local Infection Of Skin And Subcutaneous Tissue 10/26/2009 JEN LU PHD 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 10/26/2009 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 10/26/2009 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 10/26/2009 JOSEFINA RODRIGUEZ MD 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 10/26/2009 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 10/26/2009 JEN LU PHD 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 10/26/2009 JOSEFINA RODRIGUEZ MD 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 10/26/2009 JENNIFER IGLESIAS APRN 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 10/26/2009 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 10/26/2009 JOSEFINA RODRIGUEZ MD 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 10/26/2009 JOSEFINA RODRIGUEZ MD 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 10/26/2009 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 10/26/2009 JOSEFINA RODRIGUEZ MD 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 10/26/2009 MOSHE BEAULIEU 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 10/26/2009 JENNIFER IGLESIAS APRN 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 10/26/2009 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 10/26/2009 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 10/26/2009 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 10/26/2009 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 10/26/2009 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 10/26/2009 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 10/26/2009 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 10/26/2009 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 10/26/2009 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 10/26/2009 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 10/26/2009 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 10/26/2009 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 10/26/2009 GIGI ROSE DO 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 10/26/2009 ALY BENITEZ, JEN A 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 10/26/2009 ALY BENITEZ, JEN A 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 10/26/2009 JENNIFER IGLESIAS APRN 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 10/26/2009 JEN LU PHD 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 10/26/2009 GIGI ROSE DO K 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 10/26/2009 EATON RN BSNYINKA MilesSON L 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 10/26/2009 JEN LU PHD A 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 10/26/2009 GIGI ROSE DO K 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 10/26/2009 EATON RN BSNYINKAJENNIFER L 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 10/26/2009 JEN LU PHD 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 10/26/2009 BOBON RN BSNYINKA MilesSON L 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 10/26/2009 JEN LU PHD 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 10/26/2009 EATON RN BSNYINKAJENNIFER L 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 10/26/2009 GIGI ROSE DO 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 10/26/2009 JEN LU PHD 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 10/26/2009 GIGI ROSE DO 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 10/26/2009 JEN LU PHD 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 10/26/2009 JEN LU PHD 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 10/26/2009 GIGI ROSE DO 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 10/26/2009 JEN LU PHD 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 10/26/2009 BOBON RN BSNYINKA MilesSON L 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 10/26/2009 JEN LU PHD 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 10/26/2009 TRAE DPM, GINA 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 10/26/2009 ROSE DO, GIGI K 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 10/26/2009 JENNIFER IGLESIAS APRN L 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 10/26/2009 ALY BENITEZ, JEN Odom 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8 Back Muscle Spasm 11/10/2009 724.2 lower back pain 11/10/2009 724.8 Back Muscle Spasm 11/10/2009 ALY BENITEZ, JEN A 724.2 lower back pain 11/10/2009 ALY BENITEZ, JEN A 724.8 Back Muscle Spasm 11/10/2009 JOSEFINA RODRIGUEZ MD 724.2 lower back pain 11/10/2009 JOSEFINA RODRIGUEZ MD 724.8 Back Muscle Spasm 11/10/2009 JENNIFER IGLESIAS APRN L 724.2 lower back pain 11/10/2009 JENNIFER IGLESIAS APRN L 724.8 Back Muscle Spasm 11/10/2009 724.2 lower back pain 11/10/2009 724.8 Back Muscle Spasm 11/10/2009 JOSEFINA RODRIGUEZ MD 724.2 lower back pain 11/10/2009 JOSEFINA RODRIGUEZ MD 724.8 Back Muscle Spasm 11/10/2009 JOSEFINA RODRIGUEZ MD 724.2 lower back pain 11/10/2009 JOSEFINA RODRIGUEZ MD 724.8 Back Muscle Spasm 11/10/2009 724.2 lower back pain 11/10/2009 724.8 Back Muscle Spasm 11/10/2009 JOSEFINA RODRIGUEZ MD 724.2 lower back pain 11/10/2009 JOSEFINA RODRIGUEZ MD 724.8 Back Muscle Spasm 11/10/2009 BAQIR, MOSHE 724.2 lower back pain 11/10/2009 BAQIR, MOSHE 724.8 Back Muscle Spasm 11/10/2009 JENNIEFR IGLESIAS APRN L 724.2 lower back pain 11/10/2009 JENNIFER IGLESIAS APRN L 724.8 Back Muscle Spasm 11/10/2009 724.2 lower back pain 11/10/2009 724.8 Back Muscle Spasm 11/10/2009 724.2 lower back pain 11/10/2009 724.8 Back Muscle Spasm 11/10/2009 724.2 lower back pain 11/10/2009 724.8 Back Muscle Spasm 11/10/2009 724.2 lower back pain 11/10/2009 724.8 Back Muscle Spasm 11/10/2009 724.2 lower back pain 11/10/2009 724.8 Back Muscle Spasm 11/10/2009 724.2 lower back pain 11/10/2009 724.8 Back Muscle Spasm 11/10/2009 724.2 lower back pain 11/10/2009 724.8 Back Muscle Spasm 11/10/2009 724.2 lower back pain 11/10/2009 724.8 Back Muscle Spasm 11/10/2009 724.2 lower back pain 11/10/2009 724.8 Back Muscle Spasm 11/10/2009 724.2 lower back pain 11/10/2009 724.8 Back Muscle Spasm 11/10/2009 724.2 lower back pain 11/10/2009 724.8 Back Muscle Spasm 11/10/2009 724.2 lower back pain 11/10/2009 724.8 Back Muscle Spasm 11/10/2009 GIGI ROSE DO 724.2 lower back pain 11/10/2009 ROSE DO, GIGI K 724.8 Back Muscle Spasm 11/10/2009 BOEKHOUT PHD, JEN A 724.2 lower back pain 11/10/2009 BOEKHOUT PHD, JEN A 724.8 Back Muscle Spasm 11/10/2009 VALENTINE RN BSN, LATASHA S 724.2 lower back pain 11/10/2009 VALENTINE RN BSN, LATASHA S 724.8 Back Muscle Spasm 11/10/2009 ROSE DO, GIGI K 724.2 lower back pain 11/10/2009 ROSE DO, GIGI K 724.8 Back Muscle Spasm 11/10/2009 BOEKHOUT PHD, JEN A 724.2 lower back pain 11/10/2009 BOEKHOUT PHD, JEN A 724.8 Back Muscle Spasm 11/10/2009 ROSE DO, GIGI K 724.2 lower back pain 11/10/2009 ROSE DO, GIGI K 724.8 Back Muscle Spasm 11/10/2009 EATON RN BSN, JENNIFER L 724.2 lower back pain 11/10/2009 EATON RN BSN, JENNIFER L 724.8 Back Muscle Spasm 11/10/2009 BOEKHOUT PHD, JEN A 724.2 lower back pain 11/10/2009 BOEOUT PHD, JEN A 724.8 Back Muscle Spasm 11/10/2009 EATON RN BSN, JENNIFER L 724.2 lower back pain 11/10/2009 EATON RN BSN, JENNIFER L 724.8 Back Muscle Spasm 11/10/2009 BOEGIGIOUT PHD, JEN A 724.2 lower back pain 11/10/2009 BOEKHOUT PHD, JEN A 724.8 Back Muscle Spasm 11/10/2009 EATON RN BSN, JENNIFER L 724.2 lower back pain 11/10/2009 EATON RN BSN, JENNIFER L 724.8 Back Muscle Spasm 11/10/2009 BOEGIGIOUT PHD, JEN A 724.2 lower back pain 11/10/2009 BOEKHOUT PHD, JEN A 724.8 Back Muscle Spasm 11/10/2009 ROSE DO, GIGI K 724.2 lower back pain 11/10/2009 ROSE DO, GIGI K 724.8 Back Muscle Spasm 11/10/2009 EATON RN BSN, JENNIFER L 724.2 lower back pain 11/10/2009 EATON RN BSN, JENNIFER L 724.8 Back Muscle Spasm 11/10/2009 BOEKHOUT PHD, JEN A 724.2 lower back pain 11/10/2009 BOEKHOUT PHD, JEN A 724.8 Back Muscle Spasm 11/10/2009 ROSE DO, GIGI K 724.2 lower back pain 11/10/2009 ROSE DO, GIGI K 724.8 Back Muscle Spasm 11/10/2009 EATON RN BSN, JENNIFER L 724.2 lower back pain 11/10/2009 EATON RN BSN, JENNIFER L 724.8 Back Muscle Spasm 11/10/2009 BOEKHOUT PHD, JEN A 724.2 lower back pain 11/10/2009 BOEOUT PHD, JEN A 724.8 Back Muscle Spasm 11/10/2009 EATON RN BSN, JENNIFER L 724.2 lower back pain 11/10/2009 EATON RN BSN, JENNIFER L 724.8 Back Muscle Spasm 11/10/2009 BOEKHOUT PHD, JEN A 724.2 lower back pain 11/10/2009 BOEKHOUT PHD, JEN A 724.8 Back Muscle Spasm 11/10/2009 EATON RN BSN, JENNIFER L 724.2 lower back pain 11/10/2009 EATON RN BSN, JENNIFER L 724.8 Back Muscle Spasm 11/10/2009 ROSE DO, GIGI K 724.2 lower back pain 11/10/2009 ROSE DO, GIGI K 724.8 Back Muscle Spasm 11/10/2009 BOEKHOUT PHD, JEN A 724.2 lower back pain 11/10/2009 BOEKHOUT PHD, JEN A 724.8 Back Muscle Spasm 11/10/2009 ROSE DO, GIGI K 724.2 lower back pain 11/10/2009 ROSE DO, GIGI K 724.8 Back Muscle Spasm 11/10/2009 BOEKHOUT PHD, JEN A 724.2 lower back pain 11/10/2009 BOEKHOUT PHD, JEN A 724.8 Back Muscle Spasm 11/10/2009 BOEKHOUT PHD, JEN A 724.2 lower back pain 11/10/2009 BOEKHOUT PHD, JEN A 724.8 Back Muscle Spasm 11/10/2009 ROSE DO, GIGI K 724.2 lower back pain 11/10/2009 ROSE DO, GIGI K 724.8 Back Muscle Spasm 11/10/2009 BOEANSHUL PHD, JEN A 724.2 lower back pain 11/10/2009 BOEGIGIOUT PHD, JEN A 724.8 Back Muscle Spasm 11/10/2009 EATON RN BSN, JENNIFER L 724.2 lower back pain 11/10/2009 EATON RN BSN, JENNIFER L 724.8 Back Muscle Spasm 11/10/2009 BOEGIGIOUT PHD, JEN A 724.2 lower back pain 11/10/2009 BOEGIGIOUT PHD, JEN A 724.8 Back Muscle Spasm 11/10/2009 TRAE DPM, GINA 724.2 lower back pain 11/10/2009 TRAE DPM, GINA 724.8 Back Muscle Spasm 11/10/2009 ROSE DO, GIGI K 724.2 lower back pain 11/10/2009 ROSE DO, GIGI K 724.8 Back Muscle Spasm 11/10/2009 EATON RN BSN, JENNIFER L 724.2 lower back pain 11/10/2009 EATON RN BSN, JENNIFER L 724.8 Back Muscle Spasm 11/10/2009 BOEANSHUL PHD, JEN A 724.2 lower back pain 11/10/2009 BOEANSHUL PHD, JEN A 724.8 Back Muscle Spasm 11/10/2009 ROSE DO, GIGI K 724.2 lower back pain 11/10/2009 ROSE DO, GIGI K 724.8 Back Muscle Spasm 11/10/2009 BOEANSHUL PHD, JEN A 724.2 lower back pain 11/10/2009 BOEANSHUL PHD, JEN A 724.8 Back Muscle Spasm 11/10/2009 BOEANSHUL PHD, JEN A 724.2 lower back pain 11/10/2009 BOEANSHUL PHD, JEN A 724.8 Back Muscle Spasm 01/12/2010 Ot 250.00 01/12/2010 Ot 272.4 01/12/2010 Ot 345.90 01/12/2010 Ot 401.9 01/12/2010 Ot 412 01/12/2010 Ot 438.11 01/12/2010 Ot 438.89 01/12/2010 Ot 496 01/12/2010 Ot V57.1 01/12/2010 Ot V57.3 04/14/2010 Ot 427.9 04/19/2010 ALY BENITEZ, JEN Odom 701.2 ACQUIRED ACANTHOSIS NIGRICANS 04/19/2010 ALY BENITEZ, JEN Odom 708.9 UNSPECIFIED URTICARIA 04/19/2010 701.2 ACQUIRED ACANTHOSIS NIGRICANS 04/19/2010 708.9 UNSPECIFIED URTICARIA 04/19/2010 701.2 ACQUIRED ACANTHOSIS NIGRICANS 04/19/2010 708.9 UNSPECIFIED URTICARIA 04/19/2010 JOSEFINA RODRIGUEZ MD 701.2 ACQUIRED ACANTHOSIS NIGRICANS 04/19/2010 JOSEFINA RODRIGUEZ MD 708.9 UNSPECIFIED URTICARIA 04/19/2010 701.2 ACQUIRED ACANTHOSIS NIGRICANS 04/19/2010 708.9 UNSPECIFIED URTICARIA 04/19/2010 ALY BENITEZ, JEN Odom 701.2 ACQUIRED ACANTHOSIS NIGRICANS 04/19/2010 JEN LU PHD A 708.9 UNSPECIFIED URTICARIA 04/19/2010 JOSEFINA RODRIGUEZ MD 701.2 ACQUIRED ACANTHOSIS NIGRICANS 04/19/2010 JOSEFINA RODRIGUEZ MD 708.9 UNSPECIFIED URTICARIA 04/19/2010 YINKA IGLESIAS APRNSON L 701.2 ACQUIRED ACANTHOSIS NIGRICANS 04/19/2010 JENNIFER IGLESIAS APRN L 708.9 UNSPECIFIED URTICARIA 04/19/2010 701.2 ACQUIRED ACANTHOSIS NIGRICANS 04/19/2010 708.9 UNSPECIFIED URTICARIA 04/19/2010 JOSEFINA RODRIGUEZ MD 701.2 ACQUIRED ACANTHOSIS NIGRICANS 04/19/2010 JOSEFINA RODRIGUEZ MD 708.9 UNSPECIFIED URTICARIA 04/19/2010 JOSEFINA RODRIGUEZ MD 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.2 ACQUIRED ACANTHOSIS NIGRICANS 04/19/2010 JOSEFINA RODRIGUEZ MD 708.9 UNSPECIFIED URTICARIA 04/19/2010 701.2 ACQUIRED ACANTHOSIS NIGRICANS 04/19/2010 708.9 UNSPECIFIED URTICARIA 04/19/2010 JOSEFINA RODRIGUEZ MD 701.2 ACQUIRED ACANTHOSIS NIGRICANS 04/19/2010 JOSEFINA RODRIGUEZ MD 708.9 UNSPECIFIED URTICARIA 04/19/2010 BAQITIFFANIE WarrenZ 701.2 ACQUIRED ACANTHOSIS NIGRICANS 04/19/2010 BAQIMOSHE Warren 708.9 UNSPECIFIED URTICARIA 04/19/2010 EATON RN BSN, JENNIFER L 701.2 ACQUIRED ACANTHOSIS NIGRICANS 04/19/2010 EATON RN BSN, JENNIFER L 708.9 UNSPECIFIED URTICARIA 04/19/2010 701.2 ACQUIRED ACANTHOSIS NIGRICANS 04/19/2010 708.9 UNSPECIFIED URTICARIA 04/19/2010 701.2 ACQUIRED ACANTHOSIS NIGRICANS 04/19/2010 708.9 UNSPECIFIED URTICARIA 04/19/2010 701.2 ACQUIRED ACANTHOSIS NIGRICANS 04/19/2010 708.9 UNSPECIFIED URTICARIA 04/19/2010 701.2 ACQUIRED ACANTHOSIS NIGRICANS 04/19/2010 708.9 UNSPECIFIED URTICARIA 04/19/2010 701.2 ACQUIRED ACANTHOSIS NIGRICANS 04/19/2010 708.9 UNSPECIFIED URTICARIA 04/19/2010 701.2 ACQUIRED ACANTHOSIS NIGRICANS 04/19/2010 708.9 UNSPECIFIED URTICARIA 04/19/2010 701.2 ACQUIRED ACANTHOSIS NIGRICANS 04/19/2010 708.9 UNSPECIFIED URTICARIA 04/19/2010 701.2 ACQUIRED ACANTHOSIS NIGRICANS 04/19/2010 708.9 UNSPECIFIED URTICARIA 04/19/2010 701.2 ACQUIRED ACANTHOSIS NIGRICANS 04/19/2010 708.9 UNSPECIFIED URTICARIA 04/19/2010 701.2 ACQUIRED ACANTHOSIS NIGRICANS 04/19/2010 708.9 UNSPECIFIED URTICARIA 04/19/2010 701.2 ACQUIRED ACANTHOSIS NIGRICANS 04/19/2010 708.9 UNSPECIFIED URTICARIA 04/19/2010 701.2 ACQUIRED ACANTHOSIS NIGRICANS 04/19/2010 708.9 UNSPECIFIED URTICARIA 04/19/2010 ROSE DO, GIGI K 701.2 ACQUIRED ACANTHOSIS NIGRICANS 04/19/2010 ROSE DO, GIGI K 708.9 UNSPECIFIED URTICARIA 04/19/2010 ALY BENITEZ, JEN Odom 701.2 ACQUIRED ACANTHOSIS NIGRICANS 04/19/2010 ALY BENITEZ, JEN Odom 708.9 UNSPECIFIED URTICARIA 04/19/2010 LATASHA GRIJALVA APRN S 701.2 ACQUIRED ACANTHOSIS NIGRICANS 04/19/2010 LATASHA GRIJALVA APRN S 708.9 UNSPECIFIED URTICARIA 04/19/2010 ROSE DO, GIGI K 701.2 ACQUIRED ACANTHOSIS NIGRICANS 04/19/2010 ROSE DO, GIGI K 708.9 UNSPECIFIED URTICARIA 04/19/2010 [facility] PHD, JEN A 701.2 ACQUIRED ACANTHOSIS NIGRICANS 04/19/2010 [facility] PHD, JEN A 708.9 UNSPECIFIED URTICARIA 04/19/2010 ROSE DO, GIGI K 701.2 ACQUIRED ACANTHOSIS NIGRICANS 04/19/2010 ROSE DO, GIGI K 708.9 UNSPECIFIED URTICARIA 04/19/2010 EATON RN BSN, JENNIFER L 701.2 ACQUIRED ACANTHOSIS NIGRICANS 04/19/2010 EATON RN BSN, JENNIFER L 708.9 UNSPECIFIED URTICARIA 04/19/2010 [facility] PHD, JEN A 701.2 ACQUIRED ACANTHOSIS NIGRICANS 04/19/2010 [facility] PHD, JEN A 708.9 UNSPECIFIED URTICARIA 04/19/2010 EATON RN BSN, JENNIFER L 701.2 ACQUIRED ACANTHOSIS NIGRICANS 04/19/2010 EATON RN BSN, JENNIFER L 708.9 UNSPECIFIED URTICARIA 04/19/2010 [facility] PHD, JEN A 701.2 ACQUIRED ACANTHOSIS NIGRICANS 04/19/2010 [facility] PHD, JEN A 708.9 UNSPECIFIED URTICARIA 04/19/2010 EATON RN BSN, JENNIFER L 701.2 ACQUIRED ACANTHOSIS NIGRICANS 04/19/2010 EATON RN BSN, JENNIFER L 708.9 UNSPECIFIED URTICARIA 04/19/2010 [facility] PHD, JEN A 701.2 ACQUIRED ACANTHOSIS NIGRICANS 04/19/2010 [facility] PHD, JEN A 708.9 UNSPECIFIED URTICARIA 04/19/2010 ROSE DO, IGGI K 701.2 ACQUIRED ACANTHOSIS NIGRICANS 04/19/2010 ROSE DO, GIGI K 708.9 UNSPECIFIED URTICARIA 04/19/2010 EATON RN BSN, JENNIFER L 701.2 ACQUIRED ACANTHOSIS NIGRICANS 04/19/2010 EATON RN BSN, JENNIFER L 708.9 UNSPECIFIED URTICARIA 04/19/2010 [facility] PHD, JEN A 701.2 ACQUIRED ACANTHOSIS NIGRICANS 04/19/2010 [facility] PHD, JEN A 708.9 UNSPECIFIED URTICARIA 04/19/2010 ROSE DO, GIGI K 701.2 ACQUIRED ACANTHOSIS NIGRICANS 04/19/2010 ROSE DO, GIGI K 708.9 UNSPECIFIED URTICARIA 04/19/2010 EATON RN BSN, JENNIFER L 701.2 ACQUIRED ACANTHOSIS NIGRICANS 04/19/2010 EATON RN BSN, JENNIFER L 708.9 UNSPECIFIED URTICARIA 04/19/2010 [facility] PHD, JEN A 701.2 ACQUIRED ACANTHOSIS NIGRICANS 04/19/2010 [facility] PHD, JEN A 708.9 UNSPECIFIED URTICARIA 04/19/2010 EATON RN BSN, JENNIFER L 701.2 ACQUIRED ACANTHOSIS NIGRICANS 04/19/2010 EATON RN BSN, JENNIFER L 708.9 UNSPECIFIED URTICARIA 04/19/2010 [facility] PHD, JEN A 701.2 ACQUIRED ACANTHOSIS NIGRICANS 04/19/2010 [facility] PHD, JEN A 708.9 UNSPECIFIED URTICARIA 04/19/2010 EATON RN BSN, JENNIFER L 701.2 ACQUIRED ACANTHOSIS NIGRICANS 04/19/2010 EATON RN BSN, JENNIFER L 708.9 UNSPECIFIED URTICARIA 04/19/2010 ROSE DO, GIGI K 701.2 ACQUIRED ACANTHOSIS NIGRICANS 04/19/2010 ROSE DO, GIGI K 708.9 UNSPECIFIED URTICARIA 04/19/2010 [facility] PHD, JEN A 701.2 ACQUIRED ACANTHOSIS NIGRICANS 04/19/2010 [facility] PHD, JEN A 708.9 UNSPECIFIED URTICARIA 04/19/2010 ROSE DO, GIGI K 701.2 ACQUIRED ACANTHOSIS NIGRICANS 04/19/2010 ROSE DO, GIGI K 708.9 UNSPECIFIED URTICARIA 04/19/2010 [facility] PHD, JEN A 701.2 ACQUIRED ACANTHOSIS NIGRICANS 04/19/2010 [facility] PHD, JEN A 708.9 UNSPECIFIED URTICARIA 04/19/2010 [facility] PHD, JEN A 701.2 ACQUIRED ACANTHOSIS NIGRICANS 04/19/2010 [facility] PHD, JEN A 708.9 UNSPECIFIED URTICARIA 04/19/2010 ROSE DO, GIGI K 701.2 ACQUIRED ACANTHOSIS NIGRICANS 04/19/2010 ROSE DO, GIGI K 708.9 UNSPECIFIED URTICARIA 04/19/2010 JEN LU PHD A 701.2 ACQUIRED ACANTHOSIS NIGRICANS 04/19/2010 ALY BENITEZ, JEN A 708.9 UNSPECIFIED URTICARIA 04/19/2010 EATON RN BSN, JENNIFER L 701.2 ACQUIRED ACANTHOSIS NIGRICANS 04/19/2010 EATON RN BSN, JENNIFER L 708.9 UNSPECIFIED URTICARIA 04/19/2010 JEN LU PHD A 701.2 ACQUIRED ACANTHOSIS NIGRICANS 04/19/2010 ALY BENITEZ, JEN Odom 708.9 UNSPECIFIED URTICARIA 04/19/2010 TRAE DPM, GINA 701.2 ACQUIRED ACANTHOSIS NIGRICANS 04/19/2010 TRAE DPM, GINA 708.9 UNSPECIFIED URTICARIA 04/19/2010 ROSE DO, GIGI K 701.2 ACQUIRED ACANTHOSIS NIGRICANS 04/19/2010 ROSE DO, GIGI K 708.9 UNSPECIFIED URTICARIA 04/19/2010 EATON RN BSN, JENNIFER L 701.2 ACQUIRED ACANTHOSIS NIGRICANS 04/19/2010 EATON RN BSN, JENNIFER L 708.9 UNSPECIFIED URTICARIA 04/19/2010 JEN LU PHD 701.2 ACQUIRED ACANTHOSIS NIGRICANS 04/19/2010 JEN LU PHD 708.9 UNSPECIFIED URTICARIA 04/19/2010 ROSE DO, GIGI K 701.2 ACQUIRED ACANTHOSIS NIGRICANS 04/19/2010 ROSE DO, GIGI K 708.9 UNSPECIFIED URTICARIA 04/19/2010 JEN LU PHD 701.2 ACQUIRED ACANTHOSIS NIGRICANS 04/19/2010 JEN LU PHD 708.9 UNSPECIFIED URTICARIA 04/19/2010 JEN LU PHD 701.2 ACQUIRED ACANTHOSIS NIGRICANS 04/19/2010 JEN LU PHD 708.9 UNSPECIFIED URTICARIA 06/23/2010 JEN LU PHD 782.3 EDEMA 06/23/2010 782.3 EDEMA 06/23/2010 782.3 EDEMA 06/23/2010 JOSEFINA RODRIGUEZ MD 782.3 EDEMA 06/23/2010 782.3 EDEMA 06/23/2010 JEN LU PHD 782.3 EDEMA 06/23/2010 JENNIFER SANDERSON, JOSEFINA 782.3 EDEMA 06/23/2010 EATON RN BSN, JENNIFER L 782.3 EDEMA 06/23/2010 782.3 EDEMA 06/23/2010 JENNIFER SANDERSON, JOSEFINA 782.3 EDEMA 06/23/2010 JENNIFER SANDERSON, JOSEFINA 782.3 EDEMA 06/23/2010 782.3 EDEMA 06/23/2010 JENNIFER SANDERSON, JSOEFINA 782.3 EDEMA 06/23/2010 MOSHE BEAULIEU 782.3 EDEMA 06/23/2010 EATON RN BSN, JENNIFER L 782.3 EDEMA 06/23/2010 782.3 EDEMA 06/23/2010 782.3 EDEMA 06/23/2010 782.3 EDEMA 06/23/2010 782.3 EDEMA 06/23/2010 782.3 EDEMA 06/23/2010 782.3 EDEMA 06/23/2010 782.3 EDEMA 06/23/2010 782.3 EDEMA 06/23/2010 782.3 EDEMA 06/23/2010 782.3 EDEMA 06/23/2010 782.3 EDEMA 06/23/2010 782.3 EDEMA 06/23/2010 ROSE DO, GIGI K 782.3 EDEMA 06/23/2010 ALY PHD, JEN A 782.3 EDEMA 06/23/2010 LATASHA GRIJALVA APRN 782.3 EDEMA 06/23/2010 ROSE DO, GIGI K 782.3 EDEMA 06/23/2010 ALY PHD, JEN A 782.3 EDEMA 06/23/2010 ROSE DO, GIGI K 782.3 EDEMA 06/23/2010 KELSIE GILLESPIE, JENNIFER L 782.3 EDEMA 06/23/2010 ALY PHD, JEN A 782.3 EDEMA 06/23/2010 KELSIE GILLESPIE, JENNIFER L 782.3 EDEMA 06/23/2010 ALY PHD, JEN A 782.3 EDEMA 06/23/2010 EATENA GILLESPIE, JENNIFER L 782.3 EDEMA 06/23/2010 ALY BENITEZ, JEN A 782.3 EDEMA 06/23/2010 ROES DO, GIGI K 782.3 EDEMA 06/23/2010 EATON RN BSN, JENNIFER L 782.3 EDEMA 06/23/2010 BOEKHOUT PHD, JEN A 782.3 EDEMA 06/23/2010 ROSE DO, GIGI K 782.3 EDEMA 06/23/2010 EATON RN BSN, JENNIFER L 782.3 EDEMA 06/23/2010 BOEKHOUT PHD, JEN A 782.3 EDEMA 06/23/2010 EATON RN BSN, JENNIFER L 782.3 EDEMA 06/23/2010 BOEKHOUT PHD, JEN A 782.3 EDEMA 06/23/2010 EATON RN BSN, JENNIFER L 782.3 EDEMA 06/23/2010 ROSE DO, GIGI K 782.3 EDEMA 06/23/2010 BOEKHOUT PHD, JEN A 782.3 EDEMA 06/23/2010 ROSE DO, GIGI K 782.3 EDEMA 06/23/2010 BOEKHOUT PHD, JEN A 782.3 EDEMA 06/23/2010 BOEKHOUT PHD, JEN A 782.3 EDEMA 06/23/2010 ROSE DO, GIGI K 782.3 EDEMA 06/23/2010 BOEKHOUT PHD, JEN A 782.3 EDEMA 06/23/2010 EATON RN BSN, JENNIFER L 782.3 EDEMA 06/23/2010 BOEKHOUT PHD, JEN A 782.3 EDEMA 06/23/2010 TRAE DPM, GINA 782.3 EDEMA 06/23/2010 ROSE DO, GIGI K 782.3 EDEMA 06/23/2010 EATON RN BSN, JENNIFER L 782.3 EDEMA 06/23/2010 BOEKHOUT PHD, JEN A 782.3 EDEMA 06/23/2010 ROSE DO, GIGI K 782.3 EDEMA 06/23/2010 BOEKHOUT PHD, JEN A 782.3 EDEMA 06/23/2010 BOEKHOUT PHD, JEN A 782.3 EDEMA 06/24/2010 BOEOUT PHD, JEN A 726.10 DISORDERS OF BURSAE AND TENDONS IN SHOULDER REGION UNSPECIFIED 06/24/2010 726.10 DISORDERS OF BURSAE AND TENDONS IN SHOULDER REGION UNSPECIFIED 06/24/2010 726.10 DISORDERS OF BURSAE AND TENDONS IN SHOULDER REGION UNSPECIFIED 06/24/2010 JENNIFER SANDERSON, JOSEFINA 726.10 DISORDERS OF BURSAE AND TENDONS IN SHOULDER REGION UNSPECIFIED 06/24/2010 726.10 DISORDERS OF BURSAE AND TENDONS IN SHOULDER REGION UNSPECIFIED 06/24/2010 ALY PHD, JEN Odom 726.10 DISORDERS OF BURSAE AND TENDONS IN SHOULDER REGION UNSPECIFIED 06/24/2010 JOSEFINA RODRIGUEZ MD 726.10 DISORDERS OF BURSAE AND TENDONS IN SHOULDER REGION UNSPECIFIED 06/24/2010 JENNIFER IGLESIAS APRN 726.10 DISORDERS OF BURSAE AND TENDONS IN SHOULDER REGION UNSPECIFIED 06/24/2010 726.10 DISORDERS OF BURSAE AND TENDONS IN SHOULDER REGION UNSPECIFIED 06/24/2010 JOSEFINA RODRIGUEZ MD 726.10 DISORDERS OF BURSAE AND TENDONS IN SHOULDER REGION UNSPECIFIED 06/24/2010 JOSEFINA RODRIGUEZ MD 726.10 DISORDERS OF BURSAE AND TENDONS IN SHOULDER REGION UNSPECIFIED 06/24/2010 726.10 DISORDERS OF BURSAE AND TENDONS IN SHOULDER REGION UNSPECIFIED 06/24/2010 JOSEFINA RODRIGUEZ MD 726.10 DISORDERS OF BURSAE AND TENDONS IN SHOULDER REGION UNSPECIFIED 06/24/2010 MOSHE BEAULIEU 726.10 DISORDERS OF BURSAE AND TENDONS IN SHOULDER REGION UNSPECIFIED 06/24/2010 JENNIFER IGLESIAS APRN 726.10 DISORDERS OF BURSAE AND TENDONS IN SHOULDER REGION UNSPECIFIED 06/24/2010 726.10 DISORDERS OF BURSAE AND TENDONS IN SHOULDER REGION UNSPECIFIED 06/24/2010 726.10 DISORDERS OF BURSAE AND TENDONS IN SHOULDER REGION UNSPECIFIED 06/24/2010 726.10 DISORDERS OF BURSAE AND TENDONS IN SHOULDER REGION UNSPECIFIED 06/24/2010 726.10 DISORDERS OF BURSAE AND TENDONS IN SHOULDER REGION UNSPECIFIED 06/24/2010 726.10 DISORDERS OF BURSAE AND TENDONS IN SHOULDER REGION UNSPECIFIED 06/24/2010 726.10 DISORDERS OF BURSAE AND TENDONS IN SHOULDER REGION UNSPECIFIED 06/24/2010 726.10 DISORDERS OF BURSAE AND TENDONS IN SHOULDER REGION UNSPECIFIED 06/24/2010 726.10 DISORDERS OF BURSAE AND TENDONS IN SHOULDER REGION UNSPECIFIED 06/24/2010 726.10 DISORDERS OF BURSAE AND TENDONS IN SHOULDER REGION UNSPECIFIED 06/24/2010 726.10 DISORDERS OF BURSAE AND TENDONS IN SHOULDER REGION UNSPECIFIED 06/24/2010 726.10 DISORDERS OF BURSAE AND TENDONS IN SHOULDER REGION UNSPECIFIED 06/24/2010 726.10 DISORDERS OF BURSAE AND TENDONS IN SHOULDER REGION UNSPECIFIED 06/24/2010 GIGI ROSE DO 726.10 DISORDERS OF BURSAE AND TENDONS IN SHOULDER REGION UNSPECIFIED 06/24/2010 JEN LU PHD 726.10 DISORDERS OF BURSAE AND TENDONS IN SHOULDER REGION UNSPECIFIED 06/24/2010 LATASHA GRIJALVA APRN 726.10 DISORDERS OF BURSAE AND TENDONS IN SHOULDER REGION UNSPECIFIED 06/24/2010 GIGI ROSE DO 726.10 DISORDERS OF BURSAE AND TENDONS IN SHOULDER REGION UNSPECIFIED 06/24/2010 JEN LU PHD 726.10 DISORDERS OF BURSAE AND TENDONS IN SHOULDER REGION UNSPECIFIED 06/24/2010 GIGI ROSE DO 726.10 DISORDERS OF BURSAE AND TENDONS IN SHOULDER REGION UNSPECIFIED 06/24/2010 JENNIFER IGLESIAS APRN 726.10 DISORDERS OF BURSAE AND TENDONS IN SHOULDER REGION UNSPECIFIED 06/24/2010 JEN LU PHD 726.10 DISORDERS OF BURSAE AND TENDONS IN SHOULDER REGION UNSPECIFIED 06/24/2010 JENNIFER IGLESIAS APRN 726.10 DISORDERS OF BURSAE AND TENDONS IN SHOULDER REGION UNSPECIFIED 06/24/2010 JEN LU PHD 726.10 DISORDERS OF BURSAE AND TENDONS IN SHOULDER REGION UNSPECIFIED 06/24/2010 JENNIFER IGLESIAS APRN 726.10 DISORDERS OF BURSAE AND TENDONS IN SHOULDER REGION UNSPECIFIED 06/24/2010 JEN LU PHD 726.10 DISORDERS OF BURSAE AND TENDONS IN SHOULDER REGION UNSPECIFIED 06/24/2010 GIGI ROSE DO 726.10 DISORDERS OF BURSAE AND TENDONS IN SHOULDER REGION UNSPECIFIED 06/24/2010 JENNIFER IGLESIAS APRN 726.10 DISORDERS OF BURSAE AND TENDONS IN SHOULDER REGION UNSPECIFIED 06/24/2010 JEN LU PHD 726.10 DISORDERS OF BURSAE AND TENDONS IN SHOULDER REGION UNSPECIFIED 06/24/2010 GIGI ROSE DO 726.10 DISORDERS OF BURSAE AND TENDONS IN SHOULDER REGION UNSPECIFIED 06/24/2010 JENNIFER IGLESIAS APRN 726.10 DISORDERS OF BURSAE AND TENDONS IN SHOULDER REGION UNSPECIFIED 06/24/2010 JEN LU PHD 726.10 DISORDERS OF BURSAE AND TENDONS IN SHOULDER REGION UNSPECIFIED 06/24/2010 JENNIFER IGLESIAS APRN 726.10 DISORDERS OF BURSAE AND TENDONS IN SHOULDER REGION UNSPECIFIED 06/24/2010 JEN LU PHD 726.10 DISORDERS OF BURSAE AND TENDONS IN SHOULDER REGION UNSPECIFIED 06/24/2010 JENNIFER IGLESIAS APRN 726.10 DISORDERS OF BURSAE AND TENDONS IN SHOULDER REGION UNSPECIFIED 06/24/2010 GIGI ROSE DO 726.10 DISORDERS OF BURSAE AND TENDONS IN SHOULDER REGION UNSPECIFIED 06/24/2010 JEN LU PHD 726.10 DISORDERS OF BURSAE AND TENDONS IN SHOULDER REGION UNSPECIFIED 06/24/2010 GIGI ROSE DO 726.10 DISORDERS OF BURSAE AND TENDONS IN SHOULDER REGION UNSPECIFIED 06/24/2010 JEN LU PHD 726.10 DISORDERS OF BURSAE AND TENDONS IN SHOULDER REGION UNSPECIFIED 06/24/2010 JEN LU PHD 726.10 DISORDERS OF BURSAE AND TENDONS IN SHOULDER REGION UNSPECIFIED 06/24/2010 GIGI ROSE DO 726.10 DISORDERS OF BURSAE AND TENDONS IN SHOULDER REGION UNSPECIFIED 06/24/2010 JEN LU PHD 726.10 DISORDERS OF BURSAE AND TENDONS IN SHOULDER REGION UNSPECIFIED 06/24/2010 JENNIFER IGLESIAS APRN 726.10 DISORDERS OF BURSAE AND TENDONS IN SHOULDER REGION UNSPECIFIED 06/24/2010 JEN LU PHD 726.10 DISORDERS OF BURSAE AND TENDONS IN SHOULDER REGION UNSPECIFIED 06/24/2010 GINA ROBISON DPM 726.10 DISORDERS OF BURSAE AND TENDONS IN SHOULDER REGION UNSPECIFIED 06/24/2010 GIGI ROSE DO 726.10 DISORDERS OF BURSAE AND TENDONS IN SHOULDER REGION UNSPECIFIED 06/24/2010 JENNIFER IGLESIAS APRN 726.10 DISORDERS OF BURSAE AND TENDONS IN SHOULDER REGION UNSPECIFIED 06/24/2010 JEN LU PHD 726.10 DISORDERS OF BURSAE AND TENDONS IN SHOULDER REGION UNSPECIFIED 06/24/2010 GIGI ROSE DO 726.10 DISORDERS OF BURSAE AND TENDONS IN SHOULDER REGION UNSPECIFIED 06/24/2010 JEN LU PHD 726.10 DISORDERS OF BURSAE AND TENDONS IN SHOULDER REGION UNSPECIFIED 06/24/2010 ALY PHD, JEN Odom 726.10 DISORDERS OF BURSAE AND TENDONS IN SHOULDER REGION UNSPECIFIED 07/16/2010 ALY BENITEZ, JEN Odom 110.1 ONYCHOMYCOSIS 07/16/2010 ALY BENITEZ, JEN Odom 356.9 POLYNEUROPATHY 07/16/2010 110.1 ONYCHOMYCOSIS 07/16/2010 356.9 POLYNEUROPATHY 07/16/2010 110.1 ONYCHOMYCOSIS 07/16/2010 356.9 POLYNEUROPATHY 07/16/2010 JENNIFER SANDERSON, JOSEFINA 110.1 ONYCHOMYCOSIS 07/16/2010 JOSEFINA RODRIGUEZ MD 356.9 POLYNEUROPATHY 07/16/2010 110.1 ONYCHOMYCOSIS 07/16/2010 356.9 POLYNEUROPATHY 07/16/2010 ALY BENITEZ, JEN Odom 110.1 ONYCHOMYCOSIS 07/16/2010 ALY BENITEZ, JEN Odom 356.9 POLYNEUROPATHY 07/16/2010 JOSEFINA RODRIGUEZ MD 110.1 ONYCHOMYCOSIS 07/16/2010 JOSEFINA RODRIGUEZ MD 356.9 POLYNEUROPATHY 07/16/2010 EATON RN BSN, JENNIFER L 110.1 ONYCHOMYCOSIS 07/16/2010 EATON RN BSN, JENNIFER L 356.9 POLYNEUROPATHY 07/16/2010 110.1 ONYCHOMYCOSIS 07/16/2010 356.9 POLYNEUROPATHY 07/16/2010 JOSEFINA RODRIGUEZ MD 110.1 ONYCHOMYCOSIS 07/16/2010 JOSEFINA RODRIGUEZ MD 356.9 POLYNEUROPATHY 07/16/2010 JOSEFINA RODRIGUEZ MD 110.1 ONYCHOMYCOSIS 07/16/2010 JOSEFINA RODRIGUEZ MD 356.9 POLYNEUROPATHY 07/16/2010 110.1 ONYCHOMYCOSIS 07/16/2010 356.9 POLYNEUROPATHY 07/16/2010 JOSEFINA RODRIGUEZ MD 110.1 ONYCHOMYCOSIS 07/16/2010 JOSEFINA RODRIGUEZ MD 356.9 POLYNEUROPATHY 07/16/2010 BAQIRTIFFANIEZ 110.1 ONYCHOMYCOSIS 07/16/2010 BAQIRTIFFANIEZ 356.9 POLYNEUROPATHY 07/16/2010 EATON RN BSN, JENNIFER L 110.1 ONYCHOMYCOSIS 07/16/2010 EATON RN BSN, JENNIFER L 356.9 POLYNEUROPATHY 07/16/2010 110.1 ONYCHOMYCOSIS 07/16/2010 356.9 POLYNEUROPATHY 07/16/2010 110.1 ONYCHOMYCOSIS 07/16/2010 356.9 POLYNEUROPATHY 07/16/2010 110.1 ONYCHOMYCOSIS 07/16/2010 356.9 POLYNEUROPATHY 07/16/2010 110.1 ONYCHOMYCOSIS 07/16/2010 356.9 POLYNEUROPATHY 07/16/2010 110.1 ONYCHOMYCOSIS 07/16/2010 356.9 POLYNEUROPATHY 07/16/2010 110.1 ONYCHOMYCOSIS 07/16/2010 356.9 POLYNEUROPATHY 07/16/2010 110.1 ONYCHOMYCOSIS 07/16/2010 356.9 POLYNEUROPATHY 07/16/2010 110.1 ONYCHOMYCOSIS 07/16/2010 356.9 POLYNEUROPATHY 07/16/2010 110.1 ONYCHOMYCOSIS 07/16/2010 356.9 POLYNEUROPATHY 07/16/2010 110.1 ONYCHOMYCOSIS 07/16/2010 356.9 POLYNEUROPATHY 07/16/2010 110.1 ONYCHOMYCOSIS 07/16/2010 356.9 POLYNEUROPATHY 07/16/2010 110.1 ONYCHOMYCOSIS 07/16/2010 356.9 POLYNEUROPATHY 07/16/2010 GIGI ROSE DO K 110.1 ONYCHOMYCOSIS 07/16/2010 GIGI ROSE DO K 356.9 POLYNEUROPATHY 07/16/2010 ALY PHD, JEN Odom 110.1 ONYCHOMYCOSIS 07/16/2010 ALY PHD, JEN Odom 356.9 POLYNEUROPATHY 07/16/2010 VALENTINE RN BSN, LATASHA S 110.1 ONYCHOMYCOSIS 07/16/2010 VALENTINE RN BSN, LATASHA S 356.9 POLYNEUROPATHY 07/16/2010 ROSE DO GIGI K 110.1 ONYCHOMYCOSIS 07/16/2010 ROSE HERNANDEZ GIGI K 356.9 POLYNEUROPATHY 07/16/2010 ALY PHD, JEN A 110.1 ONYCHOMYCOSIS 07/16/2010 ALY PHD, JEN Odom 356.9 POLYNEUROPATHY 07/16/2010 ROSE HERNANDEZ GIGI K 110.1 ONYCHOMYCOSIS 07/16/2010 ROSE DO GIGI K 356.9 POLYNEUROPATHY 07/16/2010 EATON RN BSN, JENNIFER L 110.1 ONYCHOMYCOSIS 07/16/2010 EATON RN BSN, JENNIFER L 356.9 POLYNEUROPATHY 07/16/2010 BOEANSHUL PHD, JEN A 110.1 ONYCHOMYCOSIS 07/16/2010 BOEANSHUL PHD, JEN A 356.9 POLYNEUROPATHY 07/16/2010 EATON RN BSN, JENNIFER L 110.1 ONYCHOMYCOSIS 07/16/2010 EATON RN BSN, JENNIFER L 356.9 POLYNEUROPATHY 07/16/2010 BOEANSHUL PHD, JEN A 110.1 ONYCHOMYCOSIS 07/16/2010 ALY PHD, JEN A 356.9 POLYNEUROPATHY 07/16/2010 EATON RN BSN, JENNIFER L 110.1 ONYCHOMYCOSIS 07/16/2010 EATON RN BSN, JENNIFER L 356.9 POLYNEUROPATHY 07/16/2010 ALY PHD, JEN A 110.1 ONYCHOMYCOSIS 07/16/2010 ALY PHD, JEN A 356.9 POLYNEUROPATHY 07/16/2010 ROSE DO, GIGI K 110.1 ONYCHOMYCOSIS 07/16/2010 ROSE DO, GIGI K 356.9 POLYNEUROPATHY 07/16/2010 EATON RN BSN, JENNIFER L 110.1 ONYCHOMYCOSIS 07/16/2010 EATON RN BSN, JENNIFER L 356.9 POLYNEUROPATHY 07/16/2010 ALY PHD, JEN A 110.1 ONYCHOMYCOSIS 07/16/2010 ALY PHD, JEN A 356.9 POLYNEUROPATHY 07/16/2010 ROSE DO, GIGI K 110.1 ONYCHOMYCOSIS 07/16/2010 ROSE DO, GIGI K 356.9 POLYNEUROPATHY 07/16/2010 EATON RN BSN, JENNIFER L 110.1 ONYCHOMYCOSIS 07/16/2010 EATON RN BSN, JENNIFER L 356.9 POLYNEUROPATHY 07/16/2010 ALY PHD, JEN A 110.1 ONYCHOMYCOSIS 07/16/2010 ALY PHD, JEN A 356.9 POLYNEUROPATHY 07/16/2010 EATON RN BSN, JENNIFER L 110.1 ONYCHOMYCOSIS 07/16/2010 EATON RN BSN, JENNIFER L 356.9 POLYNEUROPATHY 07/16/2010 BOEANSHUL PHD, JEN A 110.1 ONYCHOMYCOSIS 07/16/2010 BOEANSHUL PHD, JEN A 356.9 POLYNEUROPATHY 07/16/2010 EATON RN BSN, JENNIFER L 110.1 ONYCHOMYCOSIS 07/16/2010 EATON RN BSN, JENNIFER L 356.9 POLYNEUROPATHY 07/16/2010 ROSE DO, GIGI K 110.1 ONYCHOMYCOSIS 07/16/2010 ROSE DO, GIGI K 356.9 POLYNEUROPATHY 07/16/2010 BOEANSHUL PHD, JEN A 110.1 ONYCHOMYCOSIS 07/16/2010 BOEANSHUL PHD, JEN A 356.9 POLYNEUROPATHY 07/16/2010 ROSE DO, GIGI K 110.1 ONYCHOMYCOSIS 07/16/2010 ROSE DO, GIGI K 356.9 POLYNEUROPATHY 07/16/2010 BOEANSHUL PHD, JEN A 110.1 ONYCHOMYCOSIS 07/16/2010 BOEANSHUL PHD, JEN A 356.9 POLYNEUROPATHY 07/16/2010 BOEANSHUL PHD, JEN A 110.1 ONYCHOMYCOSIS 07/16/2010 BOEANSHUL PHD, JEN A 356.9 POLYNEUROPATHY 07/16/2010 ROSE DO, GIGI K 110.1 ONYCHOMYCOSIS 07/16/2010 ROSE DO, GIGI K 356.9 POLYNEUROPATHY 07/16/2010 BOEANSHUL PHD, JEN A 110.1 ONYCHOMYCOSIS 07/16/2010 BOEANSHUL PHD, JEN A 356.9 POLYNEUROPATHY 07/16/2010 EATON RN BSN, JENNIFER L 110.1 ONYCHOMYCOSIS 07/16/2010 EATON RN BSN, JENNIFER L 356.9 POLYNEUROPATHY 07/16/2010 BOEANSHUL PHD, JEN A 110.1 ONYCHOMYCOSIS 07/16/2010 BOEANSHUL PHD, JEN A 356.9 POLYNEUROPATHY 07/16/2010 TRAE DPM, GINA 110.1 ONYCHOMYCOSIS 07/16/2010 TRAE DPM, GINA 356.9 POLYNEUROPATHY 07/16/2010 ROSE DO, GIGI K 110.1 ONYCHOMYCOSIS 07/16/2010 ROSE DO, GIGI K 356.9 POLYNEUROPATHY 07/16/2010 EATON RN BSN, JENNIFER L 110.1 ONYCHOMYCOSIS 07/16/2010 JENNIFER IGLESIAS APRN 356.9 POLYNEUROPATHY 07/16/2010 BOEANSHUL PHD, JEN A 110.1 ONYCHOMYCOSIS 07/16/2010 BOEANSHUL PHD, JEN A 356.9 POLYNEUROPATHY 07/16/2010 ROSE DO, GIGI K 110.1 ONYCHOMYCOSIS 07/16/2010 ROSE DO, GIGI K 356.9 POLYNEUROPATHY 07/16/2010 BOEANSHUL PHD, JEN A 110.1 ONYCHOMYCOSIS 07/16/2010 BOEANSHUL PHD, JEN A 356.9 POLYNEUROPATHY 07/16/2010 BOEANSHUL PHD, JEN A 110.1 ONYCHOMYCOSIS 07/16/2010 BOEANSHUL PHD, JEN A 356.9 POLYNEUROPATHY 08/12/2010 BOEANSHUL PHD, JEN A 354.0 Carpal Tunnel Syndrome 08/12/2010 354.0 Carpal Tunnel Syndrome 08/12/2010 354.0 Carpal Tunnel Syndrome 08/12/2010 JOSEFINA RODRIGUEZ MD 354.0 Carpal Tunnel Syndrome 08/12/2010 354.0 Carpal Tunnel Syndrome 08/12/2010 ALY PHD, JEN A 354.0 Carpal Tunnel Syndrome 08/12/2010 JOSEFINA RODRIGUEZ MD 354.0 Carpal Tunnel Syndrome 08/12/2010 JENNIFER IGLESIAS APRN 354.0 Carpal Tunnel Syndrome 08/12/2010 354.0 Carpal Tunnel Syndrome 08/12/2010 JOSEFINA RODRIGUEZ MD 354.0 Carpal Tunnel Syndrome 08/12/2010 JOSEFINA RODRIGUEZ MD 354.0 Carpal Tunnel Syndrome 08/12/2010 354.0 Carpal Tunnel Syndrome 08/12/2010 JOSEFINA RODRIGUEZ MD 354.0 Carpal Tunnel Syndrome 08/12/2010 MOSHE BEAULIEU 354.0 Carpal Tunnel Syndrome 08/12/2010 JENNIFER IGLESIAS APRN 354.0 Carpal Tunnel Syndrome 08/12/2010 354.0 Carpal Tunnel Syndrome 08/12/2010 354.0 Carpal Tunnel Syndrome 08/12/2010 354.0 Carpal Tunnel Syndrome 08/12/2010 354.0 Carpal Tunnel Syndrome 08/12/2010 354.0 Carpal Tunnel Syndrome 08/12/2010 354.0 Carpal Tunnel Syndrome 08/12/2010 354.0 Carpal Tunnel Syndrome 08/12/2010 354.0 Carpal Tunnel Syndrome 08/12/2010 354.0 Carpal Tunnel Syndrome 08/12/2010 354.0 Carpal Tunnel Syndrome 08/12/2010 354.0 Carpal Tunnel Syndrome 08/12/2010 354.0 Carpal Tunnel Syndrome 08/12/2010 GIGI ROSE DO K 354.0 Carpal Tunnel Syndrome 08/12/2010 ALY PHD, JEN Odom 354.0 Carpal Tunnel Syndrome 08/12/2010 VALENTINE RN BSN, LATASHA S 354.0 Carpal Tunnel Syndrome 08/12/2010 GIGI ROSE DO K 354.0 Carpal Tunnel Syndrome 08/12/2010 ALY PHD, JEN Odom 354.0 Carpal Tunnel Syndrome 08/12/2010 GIGI ROSE DO K 354.0 Carpal Tunnel Syndrome 08/12/2010 EATON RN BSN, JENNIFER L 354.0 Carpal Tunnel Syndrome 08/12/2010 ALY PHD, JEN Odom 354.0 Carpal Tunnel Syndrome 08/12/2010 EATON RN BSN, JENNIFER L 354.0 Carpal Tunnel Syndrome 08/12/2010 BOEANSHUL PHD, JEN Odom 354.0 Carpal Tunnel Syndrome 08/12/2010 EATON RN BSN, JENNIFER L 354.0 Carpal Tunnel Syndrome 08/12/2010 ALY PHD, JEN A 354.0 Carpal Tunnel Syndrome 08/12/2010 GIGI ROSE DO K 354.0 Carpal Tunnel Syndrome 08/12/2010 EATON RN BSN, JENNIFER L 354.0 Carpal Tunnel Syndrome 08/12/2010 ALY PHD, JEN A 354.0 Carpal Tunnel Syndrome 08/12/2010 GIGI ROSE DO K 354.0 Carpal Tunnel Syndrome 08/12/2010 EATON RN BSN, JENNIFER L 354.0 Carpal Tunnel Syndrome 08/12/2010 ALY PHD, JEN A 354.0 Carpal Tunnel Syndrome 08/12/2010 EATON RN BSN, JENNIFER L 354.0 Carpal Tunnel Syndrome 08/12/2010 ALY PHD, JEN A 354.0 Carpal Tunnel Syndrome 08/12/2010 EATON RN BSN, JENNIFER L 354.0 Carpal Tunnel Syndrome 08/12/2010 GIGI ROSE DO K 354.0 Carpal Tunnel Syndrome 08/12/2010 ALY PHD, JEN A 354.0 Carpal Tunnel Syndrome 08/12/2010 ROSE DO, GIGI K 354.0 Carpal Tunnel Syndrome 08/12/2010 BOEGIGIOUT PHD, JEN A 354.0 Carpal Tunnel Syndrome 08/12/2010 BOEGIGIOUT PHD, JEN A 354.0 Carpal Tunnel Syndrome 08/12/2010 ROSE DO, GIGI K 354.0 Carpal Tunnel Syndrome 08/12/2010 BOEGIGIOUT PHD, JEN A 354.0 Carpal Tunnel Syndrome 08/12/2010 EATON RN BSN, JENNIFER L 354.0 Carpal Tunnel Syndrome 08/12/2010 BOEGIGIOUT PHD, JEN A 354.0 Carpal Tunnel Syndrome 08/12/2010 TRAE DPM, GINA 354.0 Carpal Tunnel Syndrome 08/12/2010 ROSE DO, GIGI K 354.0 Carpal Tunnel Syndrome 08/12/2010 KELSIE RN BSN, JENNIFER L 354.0 Carpal Tunnel Syndrome 08/12/2010 [facility] J[facility] A 354.0 Carpal Tunnel Syndrome 08/12/2010 ROSE DO, GIGI K 354.0 Carpal Tunnel Syndrome 08/12/2010 [facility] JEN A 354.0 Carpal Tunnel Syndrome 08/12/2010 BOEANSHUL PHD, JEN A 354.0 Carpal Tunnel Syndrome 09/01/2010 ALY PHD, JEN A 477.0 ALLERGIC RHINITIS - POLLEN 09/01/2010 477.0 ALLERGIC RHINITIS - POLLEN 09/01/2010 477.0 ALLERGIC RHINITIS - POLLEN 09/01/2010 JENNIFER SANDERSON, JOSEFINA 477.0 ALLERGIC RHINITIS - POLLEN 09/01/2010 477.0 ALLERGIC RHINITIS - POLLEN 09/01/2010 ALY PHD, JEN A 477.0 ALLERGIC RHINITIS - POLLEN 09/01/2010 JENNIFER SANDERSON, JOSEFINA 477.0 ALLERGIC RHINITIS - POLLEN 09/01/2010 EATENA GILLESPIE, JENNIFER L 477.0 ALLERGIC RHINITIS - POLLEN 09/01/2010 477.0 ALLERGIC RHINITIS - POLLEN 09/01/2010 JENNIFER SANDERSON, JOSEFINA 477.0 ALLERGIC RHINITIS - POLLEN 09/01/2010 JENNIFER SANDERSON, JOSEFINA 477.0 ALLERGIC RHINITIS - POLLEN 09/01/2010 477.0 ALLERGIC RHINITIS - POLLEN 09/01/2010 JENNIFER SANDERSON, JOSEFINA 477.0 ALLERGIC RHINITIS - POLLEN 09/01/2010 MOSHE BEAULIEU 477.0 ALLERGIC RHINITIS - POLLEN 09/01/2010 EATON RN BSN, JENNIFER L 477.0 ALLERGIC RHINITIS - POLLEN 09/01/2010 477.0 ALLERGIC RHINITIS - POLLEN 09/01/2010 477.0 ALLERGIC RHINITIS - POLLEN 09/01/2010 477.0 ALLERGIC RHINITIS - POLLEN 09/01/2010 477.0 ALLERGIC RHINITIS - POLLEN 09/01/2010 477.0 ALLERGIC RHINITIS - POLLEN 09/01/2010 477.0 ALLERGIC RHINITIS - POLLEN 09/01/2010 477.0 ALLERGIC RHINITIS - POLLEN 09/01/2010 477.0 ALLERGIC RHINITIS - POLLEN 09/01/2010 477.0 ALLERGIC RHINITIS - POLLEN 09/01/2010 477.0 ALLERGIC RHINITIS - POLLEN 09/01/2010 477.0 ALLERGIC RHINITIS - POLLEN 09/01/2010 477.0 ALLERGIC RHINITIS - POLLEN 09/01/2010 ROSE DO, GIGI K 477.0 ALLERGIC RHINITIS - POLLEN 09/01/2010 ALY PHD, JEN A 477.0 ALLERGIC RHINITIS - POLLEN 09/01/2010 PEDRO GRIJALVA APRNA S 477.0 ALLERGIC RHINITIS - POLLEN 09/01/2010 ROSE DO, GIGI K 477.0 ALLERGIC RHINITIS - POLLEN 09/01/2010 ALY PHD, JEN A 477.0 ALLERGIC RHINITIS - POLLEN 09/01/2010 ROSE DO, GIGI K 477.0 ALLERGIC RHINITIS - POLLEN 09/01/2010 EATON RN BSN, JENNIFER L 477.0 ALLERGIC RHINITIS - POLLEN 09/01/2010 ALY PHD, JEN A 477.0 ALLERGIC RHINITIS - POLLEN 09/01/2010 EATON RN BSN, JENNIFER L 477.0 ALLERGIC RHINITIS - POLLEN 09/01/2010 ALY PHD, JEN A 477.0 ALLERGIC RHINITIS - POLLEN 09/01/2010 EATON RN BSN, JENNIFER L 477.0 ALLERGIC RHINITIS - POLLEN 09/01/2010 ALY PHD, JEN A 477.0 ALLERGIC RHINITIS - POLLEN 09/01/2010 ROSE DO, GIGI K 477.0 ALLERGIC RHINITIS - POLLEN 09/01/2010 EATON RN BSN, JENNIFER L 477.0 ALLERGIC RHINITIS - POLLEN 09/01/2010 ALY PHD, JEN A 477.0 ALLERGIC RHINITIS - POLLEN 09/01/2010 ROSE DO, GIGI K 477.0 ALLERGIC RHINITIS - POLLEN 09/01/2010 EATON RN BSN, JENNIFER L 477.0 ALLERGIC RHINITIS - POLLEN 09/01/2010 [facility] PHD, JEN A 477.0 ALLERGIC RHINITIS - POLLEN 09/01/2010 EATON RN BSN, JENNIFER L 477.0 ALLERGIC RHINITIS - POLLEN 09/01/2010 BOEOUT PHD, JEN A 477.0 ALLERGIC RHINITIS - POLLEN 09/01/2010 EATON RN BSN, JENNIFER L 477.0 ALLERGIC RHINITIS - POLLEN 09/01/2010 ROSE DO, GIGI K 477.0 ALLERGIC RHINITIS - POLLEN 09/01/2010 [facility] PHD, JEN A 477.0 ALLERGIC RHINITIS - POLLEN 09/01/2010 ROSE DO, GIGI K 477.0 ALLERGIC RHINITIS - POLLEN 09/01/2010 BOEOUT PHD, JEN A 477.0 ALLERGIC RHINITIS - POLLEN 09/01/2010 [facility] PHD, JEN A 477.0 ALLERGIC RHINITIS - POLLEN 09/01/2010 ROSE DO, GIGI K 477.0 ALLERGIC RHINITIS - POLLEN 09/01/2010 [facility] PHD, JEN A 477.0 ALLERGIC RHINITIS - POLLEN 09/01/2010 EATON RN BSN, JENNIFER L 477.0 ALLERGIC RHINITIS - POLLEN 09/01/[facility] PHD, JEN A 477.0 ALLERGIC RHINITIS - POLLEN 09/01/2010 TRAE DPM, GINA 477.0 ALLERGIC RHINITIS - POLLEN 09/01/2010 ROSE DO, GIGI K 477.0 ALLERGIC RHINITIS - POLLEN 09/01/2010 EATON RN BSN, JENNIFER L 477.0 ALLERGIC RHINITIS - POLLEN 09/01/2010 [facility] PHD, JEN A 477.0 ALLERGIC RHINITIS - POLLEN 09/01/2010 ROSE DO, GIGI K 477.0 ALLERGIC RHINITIS - POLLEN 09/01/2010 [facility] PHD, JEN A 477.0 ALLERGIC RHINITIS - POLLEN 09/01/2010 [facility] PHD, JEN A 477.0 ALLERGIC RHINITIS - POLLEN 09/09/2010 [facility] PHD, JEN A 354.2 LESION OF ULNAR NERVE 09/09/2010 354.2 LESION OF ULNAR NERVE 09/09/2010 354.2 LESION OF ULNAR NERVE 09/09/2010 JOSEFINA RODRIGUEZ MD 354.2 LESION OF ULNAR NERVE 09/09/2010 354.2 LESION OF ULNAR NERVE 09/09/2010 JEN LU PHD 354.2 LESION OF ULNAR NERVE 09/09/2010 JOSEFINA RODRIGUEZ MD 354.2 LESION OF ULNAR NERVE 09/09/2010 JENNIFER IGLESIAS APRN 354.2 LESION OF ULNAR NERVE 09/09/2010 354.2 LESION OF ULNAR NERVE 09/09/2010 JOSEFINA RODRIGUEZ MD 354.2 LESION OF ULNAR NERVE 09/09/2010 JOSEFINA RODRIGUEZ MD 354.2 LESION OF ULNAR NERVE 09/09/2010 354.2 LESION OF ULNAR NERVE 09/09/2010 JOSEFINA RODRIGUEZ MD 354.2 LESION OF ULNAR NERVE 09/09/2010 MOSHE BEAULIEU 354.2 LESION OF ULNAR NERVE 09/09/2010 JENNIFER IGLESIAS APRN 354.2 LESION OF ULNAR NERVE 09/09/2010 354.2 LESION OF ULNAR NERVE 09/09/2010 354.2 LESION OF ULNAR NERVE 09/09/2010 354.2 LESION OF ULNAR NERVE 09/09/2010 354.2 LESION OF ULNAR NERVE 09/09/2010 354.2 LESION OF ULNAR NERVE 09/09/2010 354.2 LESION OF ULNAR NERVE 09/09/2010 354.2 LESION OF ULNAR NERVE 09/09/2010 354.2 LESION OF ULNAR NERVE 09/09/2010 354.2 LESION OF ULNAR NERVE 09/09/2010 354.2 LESION OF ULNAR NERVE 09/09/2010 354.2 LESION OF ULNAR NERVE 09/09/2010 354.2 LESION OF ULNAR NERVE 09/09/2010 GIGI ROSE DO 354.2 LESION OF ULNAR NERVE 09/09/2010 JEN LU PHD 354.2 LESION OF ULNAR NERVE 09/09/2010 LATASHA GRIJALVA APRN 354.2 LESION OF ULNAR NERVE 09/09/2010 GIGI ROSE DO 354.2 LESION OF ULNAR NERVE 09/09/2010 JEN LU PHD 354.2 LESION OF ULNAR NERVE 09/09/2010 GIGI ROSE DO 354.2 LESION OF ULNAR NERVE 09/09/2010 JENNIFER IGLESIAS APRN 354.2 LESION OF ULNAR NERVE 09/09/2010 JEN LU PHD 354.2 LESION OF ULNAR NERVE 09/09/2010 EATON RN BSN, JENNIFER L 354.2 LESION OF ULNAR NERVE 09/09/2010 BOEKHOUT PHD, JEN A 354.2 LESION OF ULNAR NERVE 09/09/2010 EATON RN BSN, JENNIFER L 354.2 LESION OF ULNAR NERVE 09/09/2010 BOEKHOUT PHD, JEN A 354.2 LESION OF ULNAR NERVE 09/09/2010 ROSE DO, GIGI K 354.2 LESION OF ULNAR NERVE 09/09/2010 EATON RN BSN, JENNIFER L 354.2 LESION OF ULNAR NERVE 09/09/2010 BOEKHOUT PHD, JEN A 354.2 LESION OF ULNAR NERVE 09/09/2010 ROSE DO, GIGI K 354.2 LESION OF ULNAR NERVE 09/09/2010 EATON RN BSN, JENNIFER L 354.2 LESION OF ULNAR NERVE 09/09/2010 BOEKHOUT PHD, JEN A 354.2 LESION OF ULNAR NERVE 09/09/2010 EATON RN BSN, JENNIFER L 354.2 LESION OF ULNAR NERVE 09/09/2010 BOEKHOUT PHD, JEN A 354.2 LESION OF ULNAR NERVE 09/09/2010 EATON RN BSN, JENNIFER L 354.2 LESION OF ULNAR NERVE 09/09/2010 ROSE DO, GIGI K 354.2 LESION OF ULNAR NERVE 09/09/2010 BOEKHOUT PHD, JEN A 354.2 LESION OF ULNAR NERVE 09/09/2010 ROSE DO, GIGI K 354.2 LESION OF ULNAR NERVE 09/09/2010 BOEKHOUT PHD, JEN A 354.2 LESION OF ULNAR NERVE 09/09/2010 BOEKHOUT PHD, JEN A 354.2 LESION OF ULNAR NERVE 09/09/2010 ROSE DO, GIIG K 354.2 LESION OF ULNAR NERVE 09/09/2010 BOEKHOUT PHD, JEN A 354.2 LESION OF ULNAR NERVE 09/09/2010 EATON RN BSN, JENNIFER L 354.2 LESION OF ULNAR NERVE 09/09/2010 BOEKHOUT PHD, JEN A 354.2 LESION OF ULNAR NERVE 09/09/2010 TRAE DPM, GINA 354.2 LESION OF ULNAR NERVE 09/09/2010 ROSE DO, GIGI K 354.2 LESION OF ULNAR NERVE 09/09/2010 EATON RN BSN, JENNIFER L 354.2 LESION OF ULNAR NERVE 09/09/2010 BOEKHOUT PHD, JEN A 354.2 LESION OF ULNAR NERVE 09/09/2010 GIGI ROSE DO 354.2 LESION OF ULNAR NERVE 09/09/2010 ALY BENITEZ, JEN Odom 354.2 LESION OF ULNAR NERVE 09/09/2010 ALY BENITEZ, JEN Odom 354.2 LESION OF ULNAR NERVE 12/22/2010 Ot 250.00 DIAB JEFFRYE WO COMPL, TYPE II OR UNSPEC TY 12/22/2010 Ot 354.2 ULNAR NERVE LESION 12/30/2010 ALY BENITEZ, JEN Odom 272.4 HYPERLIPIDEMIA 12/30/2010 ALY BENITEZ, JEN Odom 401.9 HYPERTENSION, UNSPECIFIED ESSENTIAL 12/30/2010 272.4 HYPERLIPIDEMIA 12/30/2010 401.9 HYPERTENSION, UNSPECIFIED ESSENTIAL 12/30/2010 272.4 HYPERLIPIDEMIA 12/30/2010 401.9 HYPERTENSION, UNSPECIFIED ESSENTIAL 12/30/2010 JOSEFINA RODRIGUEZ MD 272.4 DYSLIPIDEMIA 12/30/2010 JOSEFINA RODRIGUEZ MD 401.9 HYPERTENSION, UNSPECIFIED ESSENTIAL 12/30/2010 272.4 DYSLIPIDEMIA 12/30/2010 401.9 HYPERTENSION, UNSPECIFIED ESSENTIAL 12/30/2010 ALY BENITEZ, JEN Odom 272.4 DYSLIPIDEMIA 12/30/2010 ALY BENITEZ, JEN Odom 401.9 HYPERTENSION, UNSPECIFIED ESSENTIAL 12/30/2010 JOSEFINA RODRIGUEZ MD 272.4 DYSLIPIDEMIA 12/30/2010 JOSEFINA RODRIGUEZ MD 401.9 HYPERTENSION, UNSPECIFIED ESSENTIAL 12/30/2010 JENNIFER IGLESIAS APRN L 272.4 DYSLIPIDEMIA 12/30/2010 YINKA IGLESIAS APRNSON L 401.9 HYPERTENSION, UNSPECIFIED ESSENTIAL 12/30/2010 272.4 DYSLIPIDEMIA 12/30/2010 401.9 HYPERTENSION, UNSPECIFIED ESSENTIAL 12/30/2010 JOSEFINA RODRIGUEZ MD 272.4 DYSLIPIDEMIA 12/30/2010 JOSEFINA RODRIGUEZ MD 401.9 HYPERTENSION, UNSPECIFIED ESSENTIAL 12/30/2010 JOSEFINA RODRIGUEZ MD 272.4 DYSLIPIDEMIA 12/30/2010 JOSEFINA RODRIGUEZ MD 401.9 HYPERTENSION, UNSPECIFIED ESSENTIAL 12/30/2010 272.4 DYSLIPIDEMIA 12/30/2010 401.9 HYPERTENSION, UNSPECIFIED ESSENTIAL 12/30/2010 JOSEFINA RODRIGUEZ MD 272.4 DYSLIPIDEMIA 12/30/2010 JOSEFINA RODRIGUEZ MD 401.9 HYPERTENSION, UNSPECIFIED ESSENTIAL 12/30/2010 BAQIR MOSHE 272.4 DYSLIPIDEMIA 12/30/2010 MOSHE BEAULIEU 401.9 HYPERTENSION, UNSPECIFIED ESSENTIAL 12/30/2010 EATON RN BSN, JENNIFER L 272.4 DYSLIPIDEMIA 12/30/2010 BOBON RN BSN, JENNIFER L 401.9 HYPERTENSION, UNSPECIFIED ESSENTIAL 12/30/2010 272.4 DYSLIPIDEMIA 12/30/2010 401.9 HYPERTENSION, UNSPECIFIED ESSENTIAL 12/30/2010 272.4 DYSLIPIDEMIA 12/30/2010 401.9 HYPERTENSION, UNSPECIFIED ESSENTIAL 12/30/2010 272.4 DYSLIPIDEMIA 12/30/2010 401.9 HYPERTENSION, UNSPECIFIED ESSENTIAL 12/30/2010 272.4 DYSLIPIDEMIA 12/30/2010 401.9 HYPERTENSION, UNSPECIFIED ESSENTIAL 12/30/2010 272.4 DYSLIPIDEMIA 12/30/2010 401.9 HYPERTENSION, UNSPECIFIED ESSENTIAL 12/30/2010 272.4 DYSLIPIDEMIA 12/30/2010 401.9 HYPERTENSION, UNSPECIFIED ESSENTIAL 12/30/2010 272.4 DYSLIPIDEMIA 12/30/2010 401.9 HYPERTENSION, UNSPECIFIED ESSENTIAL 12/30/2010 272.4 DYSLIPIDEMIA 12/30/2010 401.9 HYPERTENSION, UNSPECIFIED ESSENTIAL 12/30/2010 272.4 DYSLIPIDEMIA 12/30/2010 401.9 HYPERTENSION, UNSPECIFIED ESSENTIAL 12/30/2010 272.4 DYSLIPIDEMIA 12/30/2010 401.9 HYPERTENSION, UNSPECIFIED ESSENTIAL 12/30/2010 272.4 DYSLIPIDEMIA 12/30/2010 401.9 HYPERTENSION, UNSPECIFIED ESSENTIAL 12/30/2010 272.4 DYSLIPIDEMIA 12/30/2010 401.9 HYPERTENSION, UNSPECIFIED ESSENTIAL 12/30/2010 ROSE DO, GIGI K 272.4 DYSLIPIDEMIA 12/30/2010 ROSE DO, GIGI K 401.9 HYPERTENSION, UNSPECIFIED ESSENTIAL 12/30/2010 ALY PHD, JEN A 272.4 DYSLIPIDEMIA 12/30/2010 ALY PHD, JEN Odom 401.9 HYPERTENSION, UNSPECIFIED ESSENTIAL 12/30/2010 VALENTINE RN BSN, LATASHA S 272.4 DYSLIPIDEMIA 12/30/2010 VALENTINE RN BSN, LATASHA S 401.9 HYPERTENSION, UNSPECIFIED ESSENTIAL 12/30/2010 ROSE DO, GIGI K 272.4 DYSLIPIDEMIA 12/30/2010 ROSE DO, GIGI K 401.9 HYPERTENSION, UNSPECIFIED ESSENTIAL 12/30/2010 ALY PHD, JEN A 272.4 DYSLIPIDEMIA 12/30/2010 ALY BENITEZ, JEN A 401.9 HYPERTENSION, UNSPECIFIED ESSENTIAL 12/30/2010 ROSE DO, GIGI K 272.4 DYSLIPIDEMIA 12/30/2010 ROSE DO, GIGI K 401.9 HYPERTENSION, UNSPECIFIED ESSENTIAL 12/30/2010 EATON RN BSN, JENNIFER L 272.4 DYSLIPIDEMIA 12/30/2010 EATON RN BSN, JENNIFER L 401.9 HYPERTENSION, UNSPECIFIED ESSENTIAL 12/30/2010 BOEGIGIOUT PHD, JEN A 272.4 DYSLIPIDEMIA 12/30/2010 BOEGIGIOUT PHD, JEN A 401.9 HYPERTENSION, UNSPECIFIED ESSENTIAL 12/30/2010 EATON RN BSN, JENNIFER L 272.4 DYSLIPIDEMIA 12/30/2010 EATON RN BSN, JENNIFER L 401.9 HYPERTENSION, UNSPECIFIED ESSENTIAL 12/30/2010 BOEGIGIOUT PHD, JEN A 272.4 DYSLIPIDEMIA 12/30/2010 BOEGIGIOUT PHD, JEN A 401.9 HYPERTENSION, UNSPECIFIED ESSENTIAL 12/30/2010 EATON RN BSN, JENNIFER L 272.4 DYSLIPIDEMIA 12/30/2010 EATON RN BSN, JENNIFER L 401.9 HYPERTENSION, UNSPECIFIED ESSENTIAL 12/30/2010 BOEGIGIOUT PHD, JEN A 272.4 DYSLIPIDEMIA 12/30/2010 BOEGIGIOUT PHD, JEN A 401.9 HYPERTENSION, UNSPECIFIED ESSENTIAL 12/30/2010 ROSE DO, GIGI K 272.4 DYSLIPIDEMIA 12/30/2010 ROSE DO, GIGI K 401.9 HYPERTENSION, UNSPECIFIED ESSENTIAL 12/30/2010 EATON RN BSN, JENNIFER L 272.4 DYSLIPIDEMIA 12/30/2010 EATON RN BSN, JENNIFER L 401.9 HYPERTENSION, UNSPECIFIED ESSENTIAL 12/30/2010 BOEANSHUL PHD, JEN A 272.4 DYSLIPIDEMIA 12/30/2010 BOEGIGIOUT PHD, JEN A 401.9 HYPERTENSION, UNSPECIFIED ESSENTIAL 12/30/2010 ROSE DO, GIGI K 272.4 DYSLIPIDEMIA 12/30/2010 ROSE DO, GIGI K 401.9 HYPERTENSION, UNSPECIFIED ESSENTIAL 12/30/2010 EATON RN BSN, JENNIFER L 272.4 DYSLIPIDEMIA 12/30/2010 EATON RN BSN, JENNIFER L 401.9 HYPERTENSION, UNSPECIFIED ESSENTIAL 12/30/2010 BOEGIGIOUT PHD, JEN A 272.4 DYSLIPIDEMIA 12/30/2010 BOEANSHUL PHD, JEN A 401.9 HYPERTENSION, UNSPECIFIED ESSENTIAL 12/30/2010 EATON RN BSN, JENNIFER L 272.4 HYPERLIPIDEMIA 12/30/2010 EATON RN BSN, JENNIFER L 401.9 HYPERTENSION, UNSPECIFIED ESSENTIAL 12/30/2010 [facility] PHD, JEN A 272.4 HYPERLIPIDEMIA 12/30/2010 BOEOUT PHD, JEN A 401.9 HYPERTENSION, UNSPECIFIED ESSENTIAL 12/30/2010 EATON RN BSN, JENNIFER L 272.4 HYPERLIPIDEMIA 12/30/2010 EATON RN BSN, JENNIFER L 401.9 HYPERTENSION, UNSPECIFIED ESSENTIAL 12/30/2010 ROSE DO, GIGI K 272.4 HYPERLIPIDEMIA 12/30/2010 ROSE DO, GIGI K 401.9 HYPERTENSION, UNSPECIFIED ESSENTIAL 12/30/2010 [facility] PHD, JEN A 272.4 HYPERLIPIDEMIA 12/30/2010 BOEOUT PHD, JEN A 401.9 HYPERTENSION, UNSPECIFIED ESSENTIAL 12/30/2010 ROSE DO, GIGI K 272.4 HYPERLIPIDEMIA 12/30/2010 ROSE DO, GIGI K 401.9 HYPERTENSION, UNSPECIFIED ESSENTIAL 12/30/2010 BOEOUT PHD, JNE A 272.4 HYPERLIPIDEMIA 12/30/2010 [facility] PHD, JEN A 401.9 HYPERTENSION, UNSPECIFIED ESSENTIAL 12/30/2010 BOEOUT PHD, JEN A 272.4 HYPERLIPIDEMIA 12/30/2010 [facility] PHD, JEN A 401.9 HYPERTENSION, UNSPECIFIED ESSENTIAL 12/30/2010 ROSE DO, GIGI K 272.4 HYPERLIPIDEMIA 12/30/2010 ROSE DO, GIGI K 401.9 HYPERTENSION, UNSPECIFIED ESSENTIAL 12/30/2010 BOEOUT PHD, JEN A 272.4 HYPERLIPIDEMIA 12/30/2010 [facility] PHD, JEN A 401.9 HYPERTENSION, UNSPECIFIED ESSENTIAL 12/30/2010 EATON RN BSN, JENNIFER L 272.4 HYPERLIPIDEMIA 12/30/2010 EATON RN BSN, JENNIFER L 401.9 HYPERTENSION, UNSPECIFIED ESSENTIAL 12/30/2010 [facility] PHD, JEN A 272.4 HYPERLIPIDEMIA 12/30/2010 [facility] 401.9 HYPERTENSION, UNSPECIFIED ESSENTIAL 12/30/2010 TRAE DPM, GINA 272.4 HYPERLIPIDEMIA 12/30/2010 TRAE DPM, GINA 401.9 HYPERTENSION, UNSPECIFIED ESSENTIAL 12/30/2010 ROSE DO, GIGI K 272.4 HYPERLIPIDEMIA 12/30/2010 ROSE DO, GIGI K 401.9 HYPERTENSION, UNSPECIFIED ESSENTIAL 12/30/2010 EATON RN BSN, JENNIFER L 272.4 HYPERLIPIDEMIA 12/30/2010 EATON RN BSN, JENNIFER L 401.9 HYPERTENSION, UNSPECIFIED ESSENTIAL 12/30/2010 [facility], J[facility] A 272.4 HYPERLIPIDEMIA 12/30/2010 BOEKHOUT PHD, JEN A 401.9 HYPERTENSION, UNSPECIFIED ESSENTIAL 12/30/2010 ROSE DO, GIGI K 272.4 HYPERLIPIDEMIA 12/30/2010 ROSE DO, GIGI K 401.9 HYPERTENSION, UNSPECIFIED ESSENTIAL 12/30/2010 BOEKHOUT PHD, JEN A 272.4 HYPERLIPIDEMIA 12/30/2010 BOEOUT PHD, JEN A 401.9 HYPERTENSION, UNSPECIFIED ESSENTIAL 12/30/2010 BOEOUT PHD, JEN A 272.4 HYPERLIPIDEMIA 12/30/2010 [facility] PHD, JEN A 401.9 HYPERTENSION, UNSPECIFIED ESSENTIAL 01/03/2011 BOEOUT PHD, JEN A 998.31 Disruption Of Internal Operation (surgical) Wound 01/03/2011 ALY BENITEZ, JEN A 998.59 Other Postoperative Infection 01/03/2011 998.31 Disruption Of Internal Operation (surgical) Wound 01/03/2011 998.59 Other Postoperative Infection 01/03/2011 998.31 Disruption Of Internal Operation (surgical) Wound 01/03/2011 998.59 Other Postoperative Infection 01/03/2011 JOSEFINA RODRIGUEZ MD 998.31 Disruption Of Internal Operation (surgical) Wound 01/03/2011 JOSEFINA RODRIGUEZ MD 998.59 Other Postoperative Infection 01/03/2011 998.31 Disruption Of Internal Operation (surgical) Wound 01/03/2011 998.59 Other Postoperative Infection 01/03/2011 ALY BENITEZ, JEN A 998.31 Disruption Of Internal Operation (surgical) Wound 01/03/2011 ESHAANGELA BENITEZ, JEN A 998.59 Other Postoperative Infection 01/03/2011 JOSEFINA RODRIGUEZ MD 998.31 Disruption Of Internal Operation (surgical) Wound 01/03/2011 JOSEFINA RODRIGUEZ MD 998.59 Other Postoperative Infection 01/03/2011 EATENA RN BSN, JENNIFER L 998.31 Disruption Of Internal Operation (surgical) Wound 01/03/2011 EATON RN BSNJENNIFER L 998.59 Other Postoperative Infection 01/03/2011 998.31 Disruption Of Internal Operation (surgical) Wound 01/03/2011 998.59 Other Postoperative Infection 01/03/2011 JOSEFINA RODRIGUEZ MD 998.31 Disruption Of Internal Operation (surgical) Wound 01/03/2011 JOSEFINA RODRIGUEZ MD 998.59 Other Postoperative Infection 01/03/2011 JOSEFINA RODRIGUEZ MD 998.31 Disruption Of Internal Operation (surgical) Wound 01/03/2011 JOSEFINA RODRIGUEZ MD 998.59 Other Postoperative Infection 01/03/2011 998.31 Disruption Of Internal Operation (surgical) Wound 01/03/2011 998.59 Other Postoperative Infection 01/03/2011 JOSEFINA RODRIGUEZ MD 998.31 Disruption Of Internal Operation (surgical) Wound 01/03/2011 JOSEFINA RODRIGUEZ MD 998.59 Other Postoperative Infection 01/03/2011 MOSHE BEAULIEU 998.31 Disruption Of Internal Operation (surgical) Wound 01/03/2011 MOSHE BEAULIEU 998.59 Other Postoperative Infection 01/03/2011 JENNIFER IGLESIAS APRN L 998.31 Disruption Of Internal Operation (surgical) Wound 01/03/2011 JENNIFER IGLESIAS APRN L 998.59 Other Postoperative Infection 01/03/2011 998.31 Disruption Of Internal Operation (surgical) Wound 01/03/2011 998.59 Other Postoperative Infection 01/03/2011 998.31 Disruption Of Internal Operation (surgical) Wound 01/03/2011 998.59 Other Postoperative Infection 01/03/2011 998.31 Disruption Of Internal Operation (surgical) Wound 01/03/2011 998.59 Other Postoperative Infection 01/03/2011 998.31 Disruption Of Internal Operation (surgical) Wound 01/03/2011 998.59 Other Postoperative Infection 01/03/2011 998.31 Disruption Of Internal Operation (surgical) Wound 01/03/2011 998.59 Other Postoperative Infection 01/03/2011 998.31 Disruption Of Internal Operation (surgical) Wound 01/03/2011 998.59 Other Postoperative Infection 01/03/2011 998.31 Disruption Of Internal Operation (surgical) Wound 01/03/2011 998.59 Other Postoperative Infection 01/03/2011 998.31 Disruption Of Internal Operation (surgical) Wound 01/03/2011 998.59 Other Postoperative Infection 01/03/2011 998.31 Disruption Of Internal Operation (surgical) Wound 01/03/2011 998.59 Other Postoperative Infection 01/03/2011 998.31 Disruption Of Internal Operation (surgical) Wound 01/03/2011 998.59 Other Postoperative Infection 01/03/2011 998.31 Disruption Of Internal Operation (surgical) Wound 01/03/2011 998.59 Other Postoperative Infection 01/03/2011 998.31 Disruption Of Internal Operation (surgical) Wound 01/03/2011 998.59 Other Postoperative Infection 01/03/2011 ROSE DO GIGI K 998.31 Disruption Of Internal Operation (surgical) Wound 01/03/2011 ROSE DO, GIGI K 998.59 Other Postoperative Infection 01/03/2011 JEN LU PHD 998.31 Disruption Of Internal Operation (surgical) Wound 01/03/2011 JEN LU PHD 998.59 Other Postoperative Infection 01/03/2011 VALENTINE RN BSN, LATASHA S 998.31 Disruption Of Internal Operation (surgical) Wound 01/03/2011 VALENTINE RN BSN, LATASHA S 998.59 Other Postoperative Infection 01/03/2011 ROSE DO GIGI K 998.31 Disruption Of Internal Operation (surgical) Wound 01/03/2011 ROSE DO, GIGI K 998.59 Other Postoperative Infection 01/03/2011 JEN LU PHD 998.31 Disruption Of Internal Operation (surgical) Wound 01/03/2011 JEN LU PHD 998.59 Other Postoperative Infection 01/03/2011 ROSE DO GIGI K 998.31 Disruption Of Internal Operation (surgical) Wound 01/03/2011 ROSE DO GIGI K 998.59 Other Postoperative Infection 01/03/2011 BOBON RN BSNYINKAJENNIFER L 998.31 Disruption Of Internal Operation (surgical) Wound 01/03/2011 BOBON RN BSN, JENNIFER L 998.59 Other Postoperative Infection 01/03/2011 JEN LU PHD 998.31 Disruption Of Internal Operation (surgical) Wound 01/03/2011 JEN LU PHD 998.59 Other Postoperative Infection 01/03/2011 EATON RN BSN, JENNIFER L 998.31 Disruption Of Internal Operation (surgical) Wound 01/03/2011 BOBON RN BSN JENNIFER L 998.59 Other Postoperative Infection 01/03/2011 BOEKHOUT PHD, JEN A 998.31 Disruption Of Internal Operation (surgical) Wound 01/03/2011 ALY BENITEZ JEN A 998.59 Other Postoperative Infection 01/03/2011 EATON RN BSN, JENNIFER L 998.31 Disruption Of Internal Operation (surgical) Wound 01/03/2011 EATON RN BSN, JENNIFER L 998.59 Other Postoperative Infection 01/03/2011 JEN LU PHD A 998.31 Disruption Of Internal Operation (surgical) Wound 01/03/2011 [place] [facility] PHDCK A 998.59 Other Postoperative Infection 01/03/2011 ROSE DO, GIGI K 998.31 Disruption Of Internal Operation (surgical) Wound 01/03/2011 ROSE DO, GIGI K 998.59 Other Postoperative Infection 01/03/2011 EATON RN BSN, JENNIFER L 998.31 Disruption Of Internal Operation (surgical) Wound 01/03/2011 EATON RN BSN, JENNIFER L 998.59 Other Postoperative Infection 01/03/2011 JEN LU PHD A 998.31 Disruption Of Internal Operation (surgical) Wound 01/03/2011 [place] [facility] PHDCK A 998.59 Other Postoperative Infection 01/03/2011 ROSE DO, GIGI K 998.31 Disruption Of Internal Operation (surgical) Wound 01/03/2011 ROSE DO, GIGI K 998.59 Other Postoperative Infection 01/03/2011 BOBON RN BSN, JENNIFER L 998.31 Disruption Of Internal Operation (surgical) Wound 01/03/2011 EATON RN BSN, JENNIFER L 998.59 Other Postoperative Infection 01/03/2011 JEN LU PHD A 998.31 Disruption Of Internal Operation (surgical) Wound 01/03/2011 [place] [facility] PHDCK A 998.59 Other Postoperative Infection 01/03/2011 EATON RN BSN, JENNIFER L 998.31 Disruption Of Internal Operation (surgical) Wound 01/03/2011 EATON RN BSN, JENNIFER L 998.59 Other Postoperative Infection 01/03/2011 [place] [facility] PHDCK A 998.31 Disruption Of Internal Operation (surgical) Wound 01/03/2011 ALY BENITEZ JEN A 998.59 Other Postoperative Infection 01/03/2011 EATON RN BSN, JENNIFER L 998.31 Disruption Of Internal Operation (surgical) Wound 01/03/2011 BOBON RN BSN JENNIFER L 998.59 Other Postoperative Infection 01/03/2011 ROSE DO, GIGI K 998.31 Disruption Of Internal Operation (surgical) Wound 01/03/2011 ROSE DO, GIGI K 998.59 Other Postoperative Infection 01/03/2011 JEN LU PHD A 998.31 Disruption Of Internal Operation (surgical) Wound 01/03/2011 ALY BENITEZ, JEN A 998.59 Other Postoperative Infection 01/03/2011 ROSE DO, GIGI K 998.31 Disruption Of Internal Operation (surgical) Wound 01/03/2011 ROSE DO, GIGI K 998.59 Other Postoperative Infection 01/03/2011 ALY BENITEZ, JEN A 998.31 Disruption Of Internal Operation (surgical) Wound 01/03/2011 ALY BENITEZ, JEN A 998.59 Other Postoperative Infection 01/03/2011 JEN LU PHD A 998.31 Disruption Of Internal Operation (surgical) Wound 01/03/2011 [place] [facility] PHDCK A 998.59 Other Postoperative Infection 01/03/2011 ROSE DO, GIGI K 998.31 Disruption Of Internal Operation (surgical) Wound 01/03/2011 ROSE DO, GIGI K 998.59 Other Postoperative Infection 01/03/2011 JEN LU PHD A 998.31 Disruption Of Internal Operation (surgical) Wound 01/03/2011 ALY BENITEZ, JEN A 998.59 Other Postoperative Infection 01/03/2011 BOBON RN BSNYINKAJENNIFER L 998.31 Disruption Of Internal Operation (surgical) Wound 01/03/2011 KELSIE RN BSNYINKAJENNIFER L 998.59 Other Postoperative Infection 01/03/2011 JEN LU PHD A 998.31 Disruption Of Internal Operation (surgical) Wound 01/03/2011 ALY BENITEZ JEN A 998.59 Other Postoperative Infection 01/03/2011 TRAE DPM, GINA 998.31 Disruption Of Internal Operation (surgical) Wound 01/03/2011 TRAE DPM, GINA 998.59 Other Postoperative Infection 01/03/2011 ROSE DO, GIGI K 998.31 Disruption Of Internal Operation (surgical) Wound 01/03/2011 ROSE DO, GIGI K 998.59 Other Postoperative Infection 01/03/2011 JENNIFER IGLESIAS APRN 998.31 Disruption Of Internal Operation (surgical) Wound 01/03/2011 JENNIFER IGLESIAS APRN L 998.59 Other Postoperative Infection 01/03/2011 JEN LU PHD 998.31 Disruption Of Internal Operation (surgical) Wound 01/03/2011 JEN LU PHD 998.59 Other Postoperative Infection 01/03/2011 ROSE DO, GIGI K 998.31 Disruption Of Internal Operation (surgical) Wound 01/03/2011 ROSE DO, GIGI K 998.59 Other Postoperative Infection 01/03/2011 JEN LU PHD A 998.31 Disruption Of Internal Operation (surgical) Wound 01/03/2011 JEN LU PHD 998.59 Other Postoperative Infection 01/03/2011 JEN LU PHD 998.31 Disruption Of Internal Operation (surgical) Wound 01/03/2011 JEN LU PHD 998.59 Other Postoperative Infection 01/04/2011 JEN LU PHD 401.9 HYPERTENSION (SYSTEMIC) 01/04/2011 401.9 HYPERTENSION ( SYSTEMIC) 01/04/2011 401.9 HYPERTENSION ( SYSTEMIC) 01/04/2011 JOSEFINA RODRIGUEZ MD 401.9 ESSENTIAL HYPERTENSION 01/04/2011 401.9 ESSENTIAL HYPERTENSION 01/04/2011 JEN LU PHD 401.9 ESSENTIAL HYPERTENSION 01/04/2011 JOSEFINA RODRIGUEZ MD 401.9 ESSENTIAL HYPERTENSION 01/04/2011 JENNIFER IGLESIAS APRN 401.9 ESSENTIAL HYPERTENSION 01/04/2011 401.9 ESSENTIAL HYPERTENSION 01/04/2011 JOSEFINA RODRIGUEZ MD 401.9 ESSENTIAL HYPERTENSION 01/04/2011 JOSEFINA RODRIGUEZ MD 401.9 ESSENTIAL HYPERTENSION 01/04/2011 401.9 ESSENTIAL HYPERTENSION 01/04/2011 JOSEFINA RODRIGUEZ MD 401.9 ESSENTIAL HYPERTENSION 01/04/2011 MOSHE BEAULIEU 401.9 ESSENTIAL HYPERTENSION 01/04/2011 JENNIFER IGLESIAS APRN 401.9 ESSENTIAL HYPERTENSION 01/04/2011 401.9 ESSENTIAL HYPERTENSION 01/04/2011 401.9 ESSENTIAL HYPERTENSION 01/04/2011 401.9 ESSENTIAL HYPERTENSION 01/04/2011 401.9 ESSENTIAL HYPERTENSION 01/04/2011 401.9 ESSENTIAL HYPERTENSION 01/04/2011 401.9 ESSENTIAL HYPERTENSION 01/04/2011 401.9 ESSENTIAL HYPERTENSION 01/04/2011 401.9 ESSENTIAL HYPERTENSION 01/04/2011 401.9 ESSENTIAL HYPERTENSION 01/04/2011 401.9 ESSENTIAL HYPERTENSION 01/04/2011 401.9 ESSENTIAL HYPERTENSION 01/04/2011 401.9 ESSENTIAL HYPERTENSION 01/04/2011 ROSE DO, GIGI K 401.9 ESSENTIAL HYPERTENSION 01/04/2011 ALY PHD, JEN A 401.9 ESSENTIAL HYPERTENSION 01/04/2011 LATASHA GRIJALVA APRN S 401.9 ESSENTIAL HYPERTENSION 01/04/2011 ROSE DO, GIGI K 401.9 ESSENTIAL HYPERTENSION 01/04/2011 ALY PHD, JEN A 401.9 ESSENTIAL HYPERTENSION 01/04/2011 ROSE DO, GIGI K 401.9 ESSENTIAL HYPERTENSION 01/04/2011 KELSIE VILLARREALN, JENNIFER L 401.9 ESSENTIAL HYPERTENSION 01/04/2011 ALY PHD, JEN A 401.9 ESSENTIAL HYPERTENSION 01/04/2011 KELSIE VILLARREALN, JENNIFER L 401.9 ESSENTIAL HYPERTENSION 01/04/2011 ALY PHD, JEN A 401.9 ESSENTIAL HYPERTENSION 01/04/2011 KELSIE VILLARREALN, JENNIFER L 401.9 ESSENTIAL HYPERTENSION 01/04/2011 ALY PHD, JEN A 401.9 ESSENTIAL HYPERTENSION 01/04/2011 ROSE DO, GIGI K 401.9 ESSENTIAL HYPERTENSION 01/04/2011 KELSIE RN BSN, JENNIFER L 401.9 ESSENTIAL HYPERTENSION 01/04/2011 ALY PHD, JEN A 401.9 ESSENTIAL HYPERTENSION 01/04/2011 ROSE DO, GIGI K 401.9 ESSENTIAL HYPERTENSION 01/04/2011 KELSIE VILLARREALN, JENNIFER L 401.9 ESSENTIAL HYPERTENSION 01/04/2011 ALY PHD, JEN A 401.9 ESSENTIAL HYPERTENSION 01/04/2011 KELSIE RN BSN, JENNIFER L 401.9 ESSENTIAL HYPERTENSION 01/04/2011 ALY PHD, JEN A 401.9 ESSENTIAL HYPERTENSION 01/04/2011 EATENA VILLARREALN, JENNIFER L 401.9 ESSENTIAL HYPERTENSION 01/04/2011 ROSE DO, GIGI K 401.9 ESSENTIAL HYPERTENSION 01/04/2011 ALY PHD, JEN A 401.9 ESSENTIAL HYPERTENSION 01/04/2011 ROSE DO, GIGI K 401.9 ESSENTIAL HYPERTENSION 01/04/2011 ALY PHD, JEN A 401.9 ESSENTIAL HYPERTENSION 01/04/2011 ALY PHD, JEN Odom 401.9 ESSENTIAL HYPERTENSION 01/04/2011 ROSE DO, GIGI K 401.9 ESSENTIAL HYPERTENSION 01/04/2011 ALY BENITEZ, JEN Odom 401.9 ESSENTIAL HYPERTENSION 01/04/2011 JENNIFER IGLESIAS APRN 401.9 ESSENTIAL HYPERTENSION 01/04/2011 ALY BENITEZ, JEN Odom 401.9 ESSENTIAL HYPERTENSION 01/04/2011 TRAE DPM, GINA 401.9 ESSENTIAL HYPERTENSION 01/04/2011 ROSE DO, GIGI K 401.9 ESSENTIAL HYPERTENSION 01/04/2011 JENNIFER IGLESIAS APRN 401.9 ESSENTIAL HYPERTENSION 01/04/2011 ALY PHD, JEN A 401.9 ESSENTIAL HYPERTENSION 01/04/2011 ROSE DO, GIGI K 401.9 ESSENTIAL HYPERTENSION 01/04/2011 ALY BENITEZ, JEN A 401.9 ESSENTIAL HYPERTENSION 01/04/2011 ALY BENITEZ, JEN A 401.9 ESSENTIAL HYPERTENSION 01/06/2011 Ot 813.42 FX DISTAL RADIUS NEC-CL 01/06/2011 Ot 959.3 ELB/FOREARM/ WRST INJ NOS 01/06/2011 Ot E000.8 OTHER EXTERNAL CAUSE STATUS 01/06/2011 Ot E849.0 ACCIDENT IN HOME 01/06/2011 Ot E885.9 FALL FROM SLIPPING, TRIPPING, OR STUMBLI 01/07/2011 Ot 250.00 DIAB JEFFREY WO COMPL, TYPE II OR UNSPEC TY 01/07/2011 Ot 813.42 FX DISTAL RADIUS NEC-CL 01/07/2011 Ot E000.8 OTHER EXTERNAL CAUSE STATUS 01/07/2011 Ot E849.0 ACCIDENT IN HOME 01/07/2011 Ot E885.9 FALL FROM SLIPPING, TRIPPING, OR STUMBLI 01/31/2011 JEN LU PHD 564.00 Unspecified Constipation 01/31/2011 564.00 Unspecified Constipation 01/31/2011 564.00 Unspecified Constipation 01/31/2011 JOSEFINA RODRIGUEZ MD 564.00 Unspecified Constipation 01/31/2011 564.00 Unspecified Constipation 01/31/2011 JEN LU PHD 564.00 Unspecified Constipation 01/31/2011 JOSEFINA RODRIGUEZ MD 564.00 Unspecified Constipation 01/31/2011 JENNIFER IGLESIAS APRN 564.00 Unspecified Constipation 01/31/2011 564.00 Unspecified Constipation 01/31/2011 JENNIFER SANDERSON, JOSEFINA 564.00 Unspecified Constipation 01/31/2011 JENNIFER SANDERSON, JOSEFINA 564.00 Unspecified Constipation 01/31/2011 564.00 Unspecified Constipation 01/31/2011 JENNIFER SANDERSON, JOSEFINA 564.00 Unspecified Constipation 01/31/2011 BRITTNEEMOSHE 564.00 Unspecified Constipation 01/31/2011 JENNIFER IGLESIAS APRN 564.00 Unspecified Constipation 01/31/2011 564.00 Unspecified Constipation 01/31/2011 564.00 Unspecified Constipation 01/31/2011 564.00 Unspecified Constipation 01/31/2011 564.00 Unspecified Constipation 01/31/2011 564.00 Unspecified Constipation 01/31/2011 564.00 Unspecified Constipation 01/31/2011 564.00 Unspecified Constipation 01/31/2011 564.00 Unspecified Constipation 01/31/2011 564.00 Unspecified Constipation 01/31/2011 564.00 Unspecified Constipation 01/31/2011 564.00 Unspecified Constipation 01/31/2011 564.00 Unspecified Constipation 01/31/2011 ROSE DODANIELA K 564.00 Unspecified Constipation 01/31/2011 ALY BENITEZ, JEN Odom 564.00 Unspecified Constipation 01/31/2011 LATASHA GRIJALVA APRN 564.00 Unspecified Constipation 01/31/2011 ROSE DANIEL HERNANDEZA K 564.00 Unspecified Constipation 01/31/2011 ALY BENITEZ, JEN A 564.00 Unspecified Constipation 01/31/2011 ROSE DO GIGI K 564.00 Unspecified Constipation 01/31/2011 JENNIFER IGLESIAS APRN 564.00 Unspecified Constipation 01/31/2011 ALY BENITEZ, JEN Odom 564.00 Unspecified Constipation 01/31/2011 JENNIFER IGLESIAS APRN 564.00 Unspecified Constipation 01/31/2011 ALY BENITEZ, JEN Odom 564.00 Unspecified Constipation 01/31/2011 JENNIFER IGLESIAS APRN 564.00 Unspecified Constipation 01/31/2011 ALY BENITEZ, JEN Odom 564.00 Unspecified Constipation 01/31/2011 ROSE DO, GIGI K 564.00 Unspecified Constipation 01/31/2011 EATON RN BSN, JENNIFER L 564.00 Unspecified Constipation 01/31/2011 BOEGIGIOUT PHD, JEN A 564.00 Unspecified Constipation 01/31/2011 ROSE DO, GIGI K 564.00 Unspecified Constipation 01/31/2011 EATON RN BSN, JENNIFER L 564.00 Unspecified Constipation 01/31/2011 BOEGIGIOUT PHD, JEN A 564.00 Unspecified Constipation 01/31/2011 EATON RN BSN, JENNIFER L 564.00 Unspecified Constipation 01/31/2011 BOEGIGIOUT PHD, JEN A 564.00 Unspecified Constipation 01/31/2011 EATON RN BSN, JENNIFER L 564.00 Unspecified Constipation 01/31/2011 ROSE DO, GIGI K 564.00 Unspecified Constipation 01/31/2011 BOEANSHUL PHD, JEN A 564.00 Unspecified Constipation 01/31/2011 ROSE DO, GIGI K 564.00 Unspecified Constipation 01/31/2011 BOEGIGIOUT PHD, JEN A 564.00 Unspecified Constipation 01/31/2011 BOEGIGIOUT PHD, JEN A 564.00 Unspecified Constipation 01/31/2011 ROSE DO, GIGI K 564.00 Unspecified Constipation 01/31/2011 BOEGIGIOUT PHD, JEN A 564.00 Unspecified Constipation 01/31/2011 EATON RN BSN, JENNIFER L 564.00 Unspecified Constipation 01/31/2011 BOEANSHUL PHD, JEN A 564.00 Unspecified Constipation 01/31/2011 TRAE DPM, GINA 564.00 Unspecified Constipation 01/31/2011 ROSE DO, GIGI K 564.00 Unspecified Constipation 01/31/2011 EATON RN BSN, JENNIFER L 564.00 Unspecified Constipation 01/31/2011 BOEANSHUL PHD, JEN A 564.00 Unspecified Constipation 01/31/2011 ROSE DO, GIGI K 564.00 Unspecified Constipation 01/31/2011 BOEGIGIOUT PHD, JEN A 564.00 Unspecified Constipation 01/31/2011 ALY PHD, JEN A 564.00 Unspecified Constipation 03/21/2011 BOEANSHUL PHD, JEN A 553.3 HIATAL HERNIA 03/21/2011 ALY BENITEZ, JEN A 787.01 Nausea With Vomiting 03/21/2011 ALY BENITEZ, JEN Odom 787.1 HEARTBURN 03/21/2011 553.3 HIATAL HERNIA 03/21/2011 787.01 Nausea With Vomiting 03/21/2011 787.1 HEARTBURN 03/21/2011 553.3 HIATAL HERNIA 03/21/2011 787.01 Nausea With Vomiting 03/21/2011 787.1 HEARTBURN 03/21/2011 JOSEFINA RODRIGUEZ MD 553.3 HIATAL HERNIA 03/21/2011 JOSEFINA RODRIGUEZ MD 787.01 Nausea With Vomiting 03/21/2011 JOSEFINA RODRIGUEZ MD 787.1 HEARTBURN 03/21/2011 553.3 HIATAL HERNIA 03/21/2011 787.01 Nausea With Vomiting 03/21/2011 787.1 HEARTBURN 03/21/2011 JEN LU PHD A 553.3 HIATAL HERNIA 03/21/2011 ALY BENITEZ, JEN Odom 787.01 Nausea With Vomiting 03/21/2011 ALY BENITEZ, JEN A 787.1 HEARTBURN 03/21/2011 JOSEFINA RODRIGUEZ MD 553.3 HIATAL HERNIA 03/21/2011 JOSEFINA RODRIGUEZ MD 787.01 Nausea With Vomiting 03/21/2011 JOSEFINA RODRIGUEZ MD 787.1 HEARTBURN 03/21/2011 JENNIFER IGLESIAS APRN L 553.3 HIATAL HERNIA 03/21/2011 YINKA IGLESIAS APRNSON L 787.01 Nausea With Vomiting 03/21/2011 YINKA IGLESIAS APRNSON L 787.1 HEARTBURN 03/21/2011 553.3 HIATAL HERNIA 03/21/2011 787.01 Nausea With Vomiting 03/21/2011 787.1 HEARTBURN 03/21/2011 JOSEFINA RODRIGUEZ MD 553.3 HIATAL HERNIA 03/21/2011 JOSEFINA RODRIGUEZ MD 787.01 Nausea With Vomiting 03/21/2011 JOSEFINA RODRIGUEZ MD 787.1 HEARTBURN 03/21/2011 JOSEFINA RODRIGUEZ MD 553.3 HIATAL HERNIA 03/21/2011 JOSEFINA RODRIGUEZ MD 787.01 Nausea With Vomiting 03/21/2011 JOSEFINA RODRIGUEZ MD 787.1 HEARTBURN 03/21/2011 553.3 HIATAL HERNIA 03/21/2011 787.01 Nausea With Vomiting 03/21/2011 787.1 HEARTBURN 03/21/2011 JOSEFINA RODRIGUEZ MD 553.3 HIATAL HERNIA 03/21/2011 JOSEFINA RODRIGUEZ MD 787.01 Nausea With Vomiting 03/21/2011 JENNIFER SANDERSON, JOSEFINA 787.1 HEARTBURN 03/21/2011 BAQIR, MOSHE 553.3 HIATAL HERNIA 03/21/2011 BAQIR MOSHE 787.01 Nausea With Vomiting 03/21/2011 BAQIR, MOSHE 787.1 HEARTBURN 03/21/2011 JENNIFER IGLESIAS APRN L 553.3 HIATAL HERNIA 03/21/2011 JENNIFER IGLESIAS APRN L 787.01 Nausea With Vomiting 03/21/2011 JENNIFER IGLESIAS APRN L 787.1 HEARTBURN 03/21/2011 553.3 HIATAL HERNIA 03/21/2011 787.01 Nausea With Vomiting 03/21/2011 787.1 HEARTBURN 03/21/2011 553.3 HIATAL HERNIA 03/21/2011 787.01 Nausea With Vomiting 03/21/2011 787.1 HEARTBURN 03/21/2011 553.3 HIATAL HERNIA 03/21/2011 787.01 Nausea With Vomiting 03/21/2011 787.1 HEARTBURN 03/21/2011 553.3 HIATAL HERNIA 03/21/2011 787.01 Nausea With Vomiting 03/21/2011 787.1 HEARTBURN 03/21/2011 553.3 HIATAL HERNIA 03/21/2011 787.01 Nausea With Vomiting 03/21/2011 787.1 HEARTBURN 03/21/2011 553.3 HIATAL HERNIA 03/21/2011 787.01 Nausea With Vomiting 03/21/2011 787.1 HEARTBURN 03/21/2011 553.3 HIATAL HERNIA 03/21/2011 787.01 Nausea With Vomiting 03/21/2011 787.1 HEARTBURN 03/21/2011 553.3 HIATAL HERNIA 03/21/2011 787.01 Nausea With Vomiting 03/21/2011 787.1 HEARTBURN 03/21/2011 553.3 HIATAL HERNIA 03/21/2011 787.01 Nausea With Vomiting 03/21/2011 787.1 HEARTBURN 03/21/2011 553.3 HIATAL HERNIA 03/21/2011 787.01 Nausea With Vomiting 03/21/2011 787.1 HEARTBURN 03/21/2011 553.3 HIATAL HERNIA 03/21/2011 787.01 Nausea With Vomiting 03/21/2011 787.1 HEARTBURN 03/21/2011 553.3 HIATAL HERNIA 03/21/2011 787.01 Nausea With Vomiting 03/21/2011 787.1 HEARTBURN 03/21/2011 ROSE DO GIGI K 553.3 HIATAL HERNIA 03/21/2011 ROSE DO, GIGI K 787.01 Nausea With Vomiting 03/21/2011 ROSE DO GIGI K 787.1 HEARTBURN 03/21/2011 JEN LU PHD 553.3 HIATAL HERNIA 03/21/2011 JEN LU PHD 787.01 Nausea With Vomiting 03/21/2011 JEN LU PHD 787.1 HEARTBURN 03/21/2011 PEDRO GRIJALVA APRNA S 553.3 HIATAL HERNIA 03/21/2011 MADYSON GRIJALVA APRNNDA S 787.01 Nausea With Vomiting 03/21/2011 PEDRO GRIJALVA APRNA S 787.1 HEARTBURN 03/21/2011 ROSE DO GIGI K 553.3 HIATAL HERNIA 03/21/2011 ROSE DO GIGI K 787.01 Nausea With Vomiting 03/21/2011 ROSE DO GIGI K 787.1 HEARTBURN 03/21/2011 JEN LU PHD A 553.3 HIATAL HERNIA 03/21/2011 ALY PHDJEN 787.01 Nausea With Vomiting 03/21/2011 ALY BENITEZ, JEN A 787.1 HEARTBURN 03/21/2011 ROSE DO GIGI K 553.3 HIATAL HERNIA 03/21/2011 ROSE DO GIGI K 787.01 Nausea With Vomiting 03/21/2011 ROSE DO GIGI K 787.1 HEARTBURN 03/21/2011 EATJENNIFER SUTHERLAND APRN L 553.3 HIATAL HERNIA 03/21/2011 EATJENNIFER SUTHERLAND APRN L 787.01 Nausea With Vomiting 03/21/2011 EATON RN BSN, JENNIFER L 787.1 HEARTBURN 03/21/2011 ALY BENITEZ, JEN A 553.3 HIATAL HERNIA 03/21/2011 ALY BENITEZ, JEN A 787.01 Nausea With Vomiting 03/21/2011 ALY PHD, JEN A 787.1 HEARTBURN 03/21/2011 EATON RN BSN, JENNIFER L 553.3 HIATAL HERNIA 03/21/2011 EATON RN BSN, JENNIFER L 787.01 Nausea With Vomiting 03/21/2011 EATON RN BSN, JENNIFER L 787.1 HEARTBURN 03/21/2011 [facility] , JEN A 553.3 HIATAL HERNIA 03/21/2011 [facility] , JEN A 787.01 Nausea With Vomiting 03/21/2011 [facility] , JEN A 787.1 HEARTBURN 03/21/2011 EATON RN BSN, JENNIFER L 553.3 HIATAL HERNIA 03/21/2011 EATON RN BSN, JENNIFER L 787.01 Nausea With Vomiting 03/21/2011 EATON RN BSN, JENNIFER L 787.1 HEARTBURN 03/21/2011 ALY BENITEZ, JEN A 553.3 HIATAL HERNIA 03/21/2011 ALY BENITEZ, JEN A 787.01 Nausea With Vomiting 03/21/2011 ALY BENITEZ, JEN A 787.1 HEARTBURN 03/21/2011 ROSE DO, GIGI K 553.3 HIATAL HERNIA 03/21/2011 ROSE DO, GIGI K 787.01 Nausea With Vomiting 03/21/2011 ROSE DO, GIGI K 787.1 HEARTBURN 03/21/2011 EATON RN BSN, JENNIFER L 553.3 HIATAL HERNIA 03/21/2011 EATON RN BSN, JENNIFER L 787.01 Nausea With Vomiting 03/21/2011 EATON RN BSN, JENNIFER L 787.1 HEARTBURN 03/21/2011 ALY BENITEZ, JEN A 553.3 HIATAL HERNIA 03/21/2011 ALY BENITEZ, JEN A 787.01 Nausea With Vomiting 03/21/2011 ALY BENITEZ, JEN A 787.1 HEARTBURN 03/21/2011 ROSE DO, GIGI K 553.3 HIATAL HERNIA 03/21/2011 ROSE DO, GIGI K 787.01 Nausea With Vomiting 03/21/2011 ROSE DO, GIGI K 787.1 HEARTBURN 03/21/2011 EATON RN BSNJENNIFER L 553.3 HIATAL HERNIA 03/21/2011 EATON RN BSN, JENNIFER L 787.01 Nausea With Vomiting 03/21/2011 EATON RN BSN, JENNIFER L 787.1 HEARTBURN 03/21/2011 ALY BENITEZ, JEN A 553.3 HIATAL HERNIA 03/21/2011 ALY PHD, JEN A 787.01 Nausea With Vomiting 03/21/2011 ALY PHD, JEN A 787.1 HEARTBURN 03/21/2011 EATON RN BSNJENNIFER Miles L 553.3 HIATAL HERNIA 03/21/2011 EATON RN BSN, JENNIFER L 787.01 Nausea With Vomiting 03/21/2011 EATON RN BSNJENNIFER L 787.1 HEARTBURN 03/21/2011 JEN LU PHD A 553.3 HIATAL HERNIA 03/21/2011 ALY PHD, JEN A 787.01 Nausea With Vomiting 03/21/2011 ALY PHD, JEN A 787.1 HEARTBURN 03/21/2011 EATON RN BSNJENNIFER Miles L 553.3 HIATAL HERNIA 03/21/2011 EATON RN BSN, JENNIFER L 787.01 Nausea With Vomiting 03/21/2011 EATON RN BSN JENNIFER L 787.1 HEARTBURN 03/21/2011 ROSE DO, GIGI K 553.3 HIATAL HERNIA 03/21/2011 ROSE DO, GIGI K 787.01 Nausea With Vomiting 03/21/2011 ROSE DO, GIGI K 787.1 HEARTBURN 03/21/2011 ALY PHD, JEN A 553.3 HIATAL HERNIA 03/21/2011 ALY BENITEZ, JEN A 787.01 Nausea With Vomiting 03/21/2011 ALY BENITEZ, JEN A 787.1 HEARTBURN 03/21/2011 ROSE DO, GIGI K 553.3 HIATAL HERNIA 03/21/2011 ROSE DO, GIGI K 787.01 Nausea With Vomiting 03/21/2011 ROSE DO, GIGI K 787.1 HEARTBURN 03/21/2011 [facility] PHD, JEN A 553.3 HIATAL HERNIA 03/21/2011 [facility], JEN A 787.01 Nausea With Vomiting 03/21/2011 [facility] , JEN A 787.1 HE[facility]BURN 03/21/2011 [facility], JEN A 553.3 HIATAL HERNIA 03/21/2011 [facility] , JEN A 787.01 Nausea With Vomiting 03/21/2011 [facility] , JEN A 787.1 HEARTBURN 03/21/2011 ROSE DO, GIGI K 553.3 HIATAL HERNIA 03/21/2011 ROSE DO, GIGI K 787.01 Nausea With Vomiting 03/21/2011 ROSE DO, GIGI K 787.1 HEARTBURN 03/21/2011 [facility] , JEN A 553.3 HIATAL HERNIA 03/21/2011 [facility] , JEN Odom 787.01 Nausea With Vomiting 03/21/2011 [facility] , JEN Odom 787.1 HEARTBURN 03/21/2011 EATON RN BSN JENNIFER L 553.3 HIATAL HERNIA 03/21/2011 EATON RN BSN, JENNIFER L 787.01 Nausea With Vomiting 03/21/2011 EATON RN BSN, JENNIFER L 787.1 HEARTBURN 03/21/2011 [facility] JEN BENITEZ A 553.3 HIATAL HERNIA 03/21/2011 [facility] , JEN A 787.01 Nausea With Vomiting 03/21/2011 [facility] , JEN Odom 787.1 HEARTBURN 03/21/2011 TRAE DPM, GINA 553.3 HIATAL HERNIA 03/21/2011 TRAE DPM, GINA 787.01 Nausea With Vomiting 03/21/2011 TRAE DPM, GINA 787.1 HEARTBURN 03/21/2011 ROSE DO, GIGI K 553.3 HIATAL HERNIA 03/21/2011 ROSE DO, GIGI K 787.01 Nausea With Vomiting 03/21/2011 ROSE DO, GIGI K 787.1 HEARTBURN 03/21/2011 EATON RN BSN, JENNIFER L 553.3 HIATAL HERNIA 03/21/2011 EATON RN BSN, JENNIFER L 787.01 Nausea With Vomiting 03/21/2011 JENNIFER IGLESIAS APRN 787.1 HEARTBURN 03/21/2011 JEN LU PHD 553.3 HIATAL HERNIA 03/21/2011 JEN LU PHD 787.01 Nausea With Vomiting 03/21/2011 JEN LU PHD 787.1 HEARTBURN 03/21/2011 ROSE DO GIGI K 553.3 HIATAL HERNIA 03/21/2011 ROSE DO, GIGI K 787.01 Nausea With Vomiting 03/21/2011 ROSE DO, GIGI K 787.1 HEARTBURN 03/21/2011 JEN LU PHD 553.3 HIATAL HERNIA 03/21/2011 JEN LU PHD 787.01 Nausea With Vomiting 03/21/2011 JEN LU PHD 787.1 HEARTBURN 03/21/2011 JEN LU PHD 553.3 HIATAL HERNIA 03/21/2011 JEN LU PHD 787.01 Nausea With Vomiting 03/21/2011 JEN LU PHD 787.1 HEARTBURN 04/18/2011 Ot 250.00 DIAB JEFFREY WO COMPL, TYPE II OR UNSPEC TY 04/18/2011 Ot 272.4 HYPERLIPIDEMIA NEC/NOS 04/18/2011 Ot 311 DEPRESSIVE DISORDER NEC 04/18/2011 Ot 401.9 HYPERTENSION NOS 04/18/2011 Ot 492.8 EMPHYSEMA NEC 04/18/2011 Ot 530.81 ESOPHAGEAL REFLUX 04/18/2011 Ot 714.0 RHEUMATOID ARTHRITIS 05/04/2011 Ot V54.12 [employer] [facility] TRAUMATIC FX LOWER ARM 05/04/2011 Ot V57.21 ENCOUNTER FOR OCCUPATIONAL THERAPY 05/12/2011 JEN LU PHD 112.3 CANDIDIASIS OF SKIN AND NAILS 05/12/2011 112.3 CANDIDIASIS OF SKIN AND NAILS 05/12/2011 112.3 CANDIDIASIS OF SKIN AND NAILS 05/12/2011 JOSEFINA RODRIGUEZ MD 112.3 CANDIDIASIS OF SKIN AND NAILS 05/12/2011 112.3 CANDIDIASIS OF SKIN AND NAILS 05/12/2011 JEN LU PHD 112.3 CANDIDIASIS OF SKIN AND NAILS 05/12/2011 JOSEFINA RODRIGUEZ MD 112.3 CANDIDIASIS OF SKIN AND NAILS 05/12/2011 JENNIFER IGLESIAS APRN 112.3 CANDIDIASIS OF SKIN AND NAILS 05/12/2011 112.3 CANDIDIASIS OF SKIN AND NAILS 05/12/2011 JOSEFINA RODRIGUEZ MD 112.3 CANDIDIASIS OF SKIN AND NAILS 05/12/2011 JOSEFINA RODRIGUEZ MD 112.3 CANDIDIASIS OF SKIN AND NAILS 05/12/2011 112.3 CANDIDIASIS OF SKIN AND NAILS 05/12/2011 JOSEFINA RODRIGUEZ MD 112.3 CANDIDIASIS OF SKIN AND NAILS 05/12/2011 MOSHE BEAULIEU 112.3 CANDIDIASIS OF SKIN AND NAILS 05/12/2011 JENNIFER IGLESIAS APRN 112.3 CANDIDIASIS OF SKIN AND NAILS 05/12/2011 112.3 CANDIDIASIS OF SKIN AND NAILS 05/12/2011 112.3 CANDIDIASIS OF SKIN AND NAILS 05/12/2011 112.3 CANDIDIASIS OF SKIN AND NAILS 05/12/2011 112.3 CANDIDIASIS OF SKIN AND NAILS 05/12/2011 112.3 CANDIDIASIS OF SKIN AND NAILS 05/12/2011 112.3 CANDIDIASIS OF SKIN AND NAILS 05/12/2011 112.3 CANDIDIASIS OF SKIN AND NAILS 05/12/2011 112.3 CANDIDIASIS OF SKIN AND NAILS 05/12/2011 112.3 CANDIDIASIS OF SKIN AND NAILS 05/12/2011 112.3 CANDIDIASIS OF SKIN AND NAILS 05/12/2011 112.3 CANDIDIASIS OF SKIN AND NAILS 05/12/2011 112.3 CANDIDIASIS OF SKIN AND NAILS 05/12/2011 GIGI ROSE DO 112.3 CANDIDIASIS OF SKIN AND NAILS 05/12/2011 JEN LU PHD 112.3 CANDIDIASIS OF SKIN AND NAILS 05/12/2011 LATASHA GRIJALVA APRN 112.3 CANDIDIASIS OF SKIN AND NAILS 05/12/2011 GIGI ROSE DO 112.3 CANDIDIASIS OF SKIN AND NAILS 05/12/2011 JEN LU PHD 112.3 CANDIDIASIS OF SKIN AND NAILS 05/12/2011 GIGI ROSE DO 112.3 CANDIDIASIS OF SKIN AND NAILS 05/12/2011 JENNIFER IGLESIAS APRN 112.3 CANDIDIASIS OF SKIN AND NAILS 05/12/2011 JEN LU PHD 112.3 CANDIDIASIS OF SKIN AND NAILS 05/12/2011 JENNIFER IGLESIAS APRN 112.3 CANDIDIASIS OF SKIN AND NAILS 05/12/2011 JEN LU PHD 112.3 CANDIDIASIS OF SKIN AND NAILS 05/12/2011 JENNIFER IGLESIAS APRN 112.3 CANDIDIASIS OF SKIN AND NAILS 05/12/2011 JEN LU PHD A 112.3 CANDIDIASIS OF SKIN AND NAILS 05/12/2011 DANIEL ROSE DOA K 112.3 CANDIDIASIS OF SKIN AND NAILS 05/12/2011 JENNIFER IGLESIAS APRN 112.3 CANDIDIASIS OF SKIN AND NAILS 05/12/2011 JEN LU PHD A 112.3 CANDIDIASIS OF SKIN AND NAILS 05/12/2011 DANIEL ROSE DOA K 112.3 CANDIDIASIS OF SKIN AND NAILS 05/12/2011 JENNIFER IGLESIAS APRN 112.3 CANDIDIASIS OF SKIN AND NAILS 05/12/2011 JEN LU PHD A 112.3 CANDIDIASIS OF SKIN AND NAILS 05/12/2011 JENNIFER IGLESIAS APRN 112.3 CANDIDIASIS OF SKIN AND NAILS 05/12/2011 JEN LU PHD 112.3 CANDIDIASIS OF SKIN AND NAILS 05/12/2011 JENNIFER IGLESIAS APRN 112.3 CANDIDIASIS OF SKIN AND NAILS 05/12/2011 DANIEL ROSE DOA K 112.3 CANDIDIASIS OF SKIN AND NAILS 05/12/2011 JEN LU PHD A 112.3 CANDIDIASIS OF SKIN AND NAILS 05/12/2011 DANIEL ROSE DOA K 112.3 CANDIDIASIS OF SKIN AND NAILS 05/12/2011 JEN LU PHD A 112.3 CANDIDIASIS OF SKIN AND NAILS 05/12/2011 JEN LU PHD 112.3 CANDIDIASIS OF SKIN AND NAILS 05/12/2011 DANIEL ROSE DOA K 112.3 CANDIDIASIS OF SKIN AND NAILS 05/12/2011 JEN LU PHD A 112.3 CANDIDIASIS OF SKIN AND NAILS 05/12/2011 JENNIFER IGLESIAS APRN 112.3 CANDIDIASIS OF SKIN AND NAILS 05/12/2011JEN LANDERS PHD A 112.3 CANDIDIASIS OF SKIN AND NAILS 05/12/2011 TRAE DPM, GINA 112.3 CANDIDIASIS OF SKIN AND NAILS 05/12/2011 ROSE DO GIGI K 112.3 CANDIDIASIS OF SKIN AND NAILS 05/12/2011 JENNIFER IGLESIAS APRN 112.3 CANDIDIASIS OF SKIN AND NAILS 05/12/2011 ALY PHD, JEN Odom 112.3 CANDIDIASIS OF SKIN AND NAILS 05/12/2011 ROSE HERNANDEZ GIGI Elvie 112.3 CANDIDIASIS OF SKIN AND NAILS 05/12/2011 ALY PHD, JEN Odmo 112.3 CANDIDIASIS OF SKIN AND NAILS 05/12/2011 ALY BENITEZ, JEN Odom 112.3 CANDIDIASIS OF SKIN AND NAILS 05/16/2011 ALY BENITEZ, JEN Odom 530.85 MORRIS'S ESOPHAGUS 05/16/2011 ALY BENITEZ, JEN Odom 535.50 GASTRITIS UNSPEC 05/16/2011 530.85 MORRIS'S ESOPHAGUS 05/16/2011 535.50 GASTRITIS UNSPEC 05/16/2011 530.85 MORRIS'S ESOPHAGUS 05/16/2011 535.50 GASTRITIS UNSPEC 05/16/2011 JOSEFINA RODRIGUEZ MD 530.85 MORRIS'S ESOPHAGUS 05/16/2011 JOSEFINA RODRIGUEZ MD 535.50 GASTRITIS UNSPEC 05/16/2011 530.85 MORRIS'S ESOPHAGUS 05/16/2011 535.50 GASTRITIS UNSPEC 05/16/2011 ALY BENITEZ, JEN Odom 530.85 MORRIS'S ESOPHAGUS 05/16/2011 ALY BENITEZ, JEN Odom 535.50 GASTRITIS UNSPEC 05/16/2011 JOSEFINA RODRIGUEZ MD 530.85 MORRIS'S ESOPHAGUS 05/16/2011 JOSEFINA RODRIGUEZ MD 535.50 GASTRITIS UNSPEC 05/16/2011 JENNIFER IGLESIAS APRN 530.85 MORRIS'S ESOPHAGUS 05/16/2011 JENNIFER IGLESIAS APRN 535.50 GASTRITIS UNSPEC 05/16/2011 530.85 MORRIS'S ESOPHAGUS 05/16/2011 535.50 GASTRITIS UNSPEC 05/16/2011 JOSEFINA RODRIGUEZ MD 530.85 MORRIS'S ESOPHAGUS 05/16/2011 JOSEFINA RODRIGUEZ MD 535.50 GASTRITIS UNSPEC 05/16/2011 JOSEFINA RODRIGUEZ MD 530.85 MORRIS'S ESOPHAGUS 05/16/2011 JOSEFINA RODRIGUEZ MD 535.50 GASTRITIS UNSPEC 05/16/2011 530.85 MORRIS'S ESOPHAGUS 05/16/2011 535.50 GASTRITIS UNSPEC 05/16/2011 JOSEFINA RODRIGUEZ MD 530.85 MORRIS'S ESOPHAGUS 05/16/2011 JOSEFINA RODRIGUEZ MD 535.50 GASTRITIS UNSPEC 05/16/2011 MOSHE BEAULIEU 530.85 MORRIS'S ESOPHAGUS 05/16/2011 MOSHE BEAULIEU 535.50 GASTRITIS UNSPEC 05/16/2011 KELSIE JENNIFER GILLESPIE 530.85 MORRIS'S ESOPHAGUS 05/16/2011 KELSIE JENNIFER GILLESPIE 535.50 GASTRITIS UNSPEC 05/16/2011 530.85 MORRIS'S ESOPHAGUS 05/16/2011 535.50 GASTRITIS UNSPEC 05/16/2011 530.85 MORRIS'S ESOPHAGUS 05/16/2011 535.50 GASTRITIS UNSPEC 05/16/2011 530.85 MORRIS'S ESOPHAGUS 05/16/2011 535.50 GASTRITIS UNSPEC 05/16/2011 530.85 MORRIS'S ESOPHAGUS 05/16/2011 535.50 GASTRITIS UNSPEC 05/16/2011 530.85 MORRIS'S ESOPHAGUS 05/16/2011 535.50 GASTRITIS UNSPEC 05/16/2011 530.85 MORRIS'S ESOPHAGUS 05/16/2011 535.50 GASTRITIS UNSPEC 05/16/2011 530.85 MORRIS'S ESOPHAGUS 05/16/2011 535.50 GASTRITIS UNSPEC 05/16/2011 530.85 MORRIS'S ESOPHAGUS 05/16/2011 535.50 GASTRITIS UNSPEC 05/16/2011 530.85 MORRIS'S ESOPHAGUS 05/16/2011 535.50 GASTRITIS UNSPEC 05/16/2011 530.85 MORRIS'S ESOPHAGUS 05/16/2011 535.50 GASTRITIS UNSPEC 05/16/2011 530.85 MORRIS'S ESOPHAGUS 05/16/2011 535.50 GASTRITIS UNSPEC 05/16/2011 530.85 MORRIS'S ESOPHAGUS 05/16/2011 535.50 GASTRITIS UNSPEC 05/16/2011 GIGI ROSE DO 530.85 MORRIS'S ESOPHAGUS 05/16/2011 GIGI ROSE DO 535.50 GASTRITIS UNSPEC 05/16/2011 JEN LU PHD 530.85 MORRIS'S ESOPHAGUS 05/16/2011 JEN LU PHD 535.50 GASTRITIS UNSPEC 05/16/2011 LATASHA GRIJALVA APRN S 530.85 MORRIS'S ESOPHAGUS 05/16/2011 LATASHA GRIJALVA APRN S 535.50 GASTRITIS UNSPEC 05/16/2011 GIGI ROSE DO 530.85 MORRIS'S ESOPHAGUS 05/16/2011 GIGI ROSE DO 535.50 GASTRITIS UNSPEC 05/16/2011 JEN LU PHD 530.85 MORRIS'S ESOPHAGUS 05/16/2011 ALY BENITEZ, JEN A 535.50 GASTRITIS UNSPEC 05/16/2011 ROSE DO, GIGI K 530.85 MORRIS'S ESOPHAGUS 05/16/2011 ROSE DO, GIGI K 535.50 GASTRITIS UNSPEC 05/16/2011 EATON RN BSN, JENNIFER L 530.85 MORRIS'S ESOPHAGUS 05/16/2011 EATON RN BSN, JENNIFER L 535.50 GASTRITIS UNSPEC 05/16/2011 ALY PHD, JEN A 530.85 MORRIS'S ESOPHAGUS 05/16/2011 ALY PHD, JEN A 535.50 GASTRITIS UNSPEC 05/16/2011 EATON RN BSN, JENNIFER L 530.85 MORRIS'S ESOPHAGUS 05/16/2011 EATON RN BSN, JENNIFER L 535.50 GASTRITIS UNSPEC 05/16/2011 ALY BENITEZ, JEN A 530.85 MORRIS'S ESOPHAGUS 05/16/2011 ALY PHD, JEN A 535.50 GASTRITIS UNSPEC 05/16/2011 EATON RN BSN, JENNIFER L 530.85 MORRIS'S ESOPHAGUS 05/16/2011 EATON RN BSN, JENNIFER L 535.50 GASTRITIS UNSPEC 05/16/2011 ALY BENITEZ, JEN A 530.85 MORRIS'S ESOPHAGUS 05/16/2011 ALY PHD, JEN A 535.50 GASTRITIS UNSPEC 05/16/2011 ROSE DO, GIGI K 530.85 MORRIS'S ESOPHAGUS 05/16/2011 ROSE DO, GIGI K 535.50 GASTRITIS UNSPEC 05/16/2011 EATON RN BSN, JENNIFER L 530.85 MORRIS'S ESOPHAGUS 05/16/2011 EATENA RN BSN, JENNIFER L 535.50 GASTRITIS UNSPEC 05/16/2011 ALY BENITEZ, JEN A 530.85 MORRIS'S ESOPHAGUS 05/16/2011 ALY BENITEZ, JEN A 535.50 GASTRITIS UNSPEC 05/16/2011 ROSE DO, GIGI K 530.85 MORRIS'S ESOPHAGUS 05/16/2011 ROSE DO, GIGI K 535.50 GASTRITIS UNSPEC 05/16/2011 EATON RN BSN, JENNIFER L 530.85 MORRIS'S ESOPHAGUS 05/16/2011 EATON RN BSN, JENNIFER L 535.50 GASTRITIS UNSPEC 05/16/2011 ALY BENITEZ, JEN A 530.85 MORRIS'S ESOPHAGUS 05/16/2011 ALY BENITEZ, JEN A 535.50 GASTRITIS UNSPEC 05/16/2011 EATON RN BSN, JENNIFER L 530.85 MORRIS'S ESOPHAGUS 05/16/2011 EATON RN BSN, JENNIFER L 535.50 GASTRITIS UNSPEC 05/16/2011 ALY BENITEZ, JEN A 530.85 MORRIS'S ESOPHAGUS 05/16/2011 ALY PHD, JEN A 535.50 GASTRITIS UNSPEC 05/16/2011 EATON RN BSN, JENNIFER L 530.85 MORRIS'S ESOPHAGUS 05/16/2011 EATON RN BSN, JENNIFER L 535.50 GASTRITIS UNSPEC 05/16/2011 ROSE DO, GIGI K 530.85 MORRIS'S ESOPHAGUS 05/16/2011 ROSE DO, GIGI K 535.50 GASTRITIS UNSPEC 05/16/2011 ALY BENITEZ, JEN A 530.85 MORRIS'S ESOPHAGUS 05/16/2011 ALY BENITEZ, JEN A 535.50 GASTRITIS UNSPEC 05/16/2011 ROSE DO, GIGI K 530.85 MORRIS'S ESOPHAGUS 05/16/2011 ROSE DO, GIGI K 535.50 GASTRITIS UNSPEC 05/16/2011 ALY BENITEZ, JEN A 530.85 MORRIS'S ESOPHAGUS 05/16/2011 ALY PHD, JEN A 535.50 GASTRITIS UNSPEC 05/16/2011 ALY BENITEZ, JEN A 530.85 MORRIS'S ESOPHAGUS 05/16/2011 ALY BENITEZ, JEN A 535.50 GASTRITIS UNSPEC 05/16/2011 ROSE DO, GIGI K 530.85 MORRIS'S ESOPHAGUS 05/16/2011 ROSE DO, GIGI K 535.50 GASTRITIS UNSPEC 05/16/2011 ALY BENITEZ, JEN A 530.85 MORRIS'S ESOPHAGUS 05/16/2011 ALY BENITEZ, JEN A 535.50 GASTRITIS UNSPEC 05/16/2011 EATON RN BSN, JENNIFER L 530.85 MORRIS'S ESOPHAGUS 05/16/2011 EATON RN BSN, JENNIFER L 535.50 GASTRITIS UNSPEC 05/16/2011 ALY BENITEZ, JEN A 530.85 MORRIS'S ESOPHAGUS 05/16/2011 ALY BENITEZ, JEN A 535.50 GASTRITIS UNSPEC 05/16/2011 TRAE DPM, GINA 530.85 MORRIS'S ESOPHAGUS 05/16/2011 TRAE DPM, GINA 535.50 GASTRITIS UNSPEC 05/16/2011 ROSE DO, GIGI K 530.85 MORRIS'S ESOPHAGUS 05/16/2011 ROSE DO, GIGI K 535.50 GASTRITIS UNSPEC 05/16/2011 JENNIFER IGLESIAS APRN 530.85 MORRIS'S ESOPHAGUS 05/16/2011 JENNIFER IGLESIAS APRN 535.50 GASTRITIS UNSPEC 05/16/2011 ALY BENITEZ, JEN Odom 530.85 MORRIS'S ESOPHAGUS 05/16/2011 ALY PHD, JEN Odom 535.50 GASTRITIS UNSPEC 05/16/2011 ROSE DO, GIGI K 530.85 MORRIS'S ESOPHAGUS 05/16/2011 ROSE DO, GIGI K 535.50 GASTRITIS UNSPEC 05/16/2011 ALY PHD, JEN Odom 530.85 MORRIS'S ESOPHAGUS 05/16/2011 ALY PHD, JEN Odom 535.50 GASTRITIS UNSPEC 05/16/2011 ALY PHD, JEN Odom 530.85 MORRIS'S ESOPHAGUS 05/16/2011 ALY PHD, JEN Odom 535.50 GASTRITIS UNSPEC 06/09/2011 JEN LU PHD 251.2 HYPOGLYCEMIA 06/09/2011 251.2 HYPOGLYCEMIA 06/09/2011 251.2 HYPOGLYCEMIA 06/09/2011 JOSEFINA RODRIGUEZ MD 251.2 HYPOGLYCEMIA 06/09/2011 251.2 HYPOGLYCEMIA 06/09/2011 JEN LU PHD 251.2 HYPOGLYCEMIA 06/09/2011 JOSEFINA RODRIGUEZ MD 251.2 HYPOGLYCEMIA 06/09/2011 JENNIFER IGLESIAS APRN 251.2 HYPOGLYCEMIA 06/09/2011 251.2 HYPOGLYCEMIA 06/09/2011 JOSEFINA RODRIGUEZ MD 251.2 HYPOGLYCEMIA 06/09/2011 JOSEFINA RODRIGUEZ MD 251.2 HYPOGLYCEMIA 06/09/2011 251.2 HYPOGLYCEMIA 06/09/2011 JOSEFINA RODRIGUEZ MD 251.2 HYPOGLYCEMIA 06/09/2011 MOSHE BEAULIEU 251.2 HYPOGLYCEMIA 06/09/2011 JENNIFER IGLESIAS APRN 251.2 HYPOGLYCEMIA 06/09/2011 251.2 HYPOGLYCEMIA 06/09/2011 251.2 HYPOGLYCEMIA 06/09/2011 251.2 HYPOGLYCEMIA 06/09/2011 251.2 HYPOGLYCEMIA 06/09/2011 251.2 HYPOGLYCEMIA 06/09/2011 251.2 HYPOGLYCEMIA 06/09/2011 251.2 HYPOGLYCEMIA 06/09/2011 251.2 HYPOGLYCEMIA 06/09/2011 251.2 HYPOGLYCEMIA 06/09/2011 251.2 HYPOGLYCEMIA 06/09/2011 251.2 HYPOGLYCEMIA 06/09/2011 251.2 HYPOGLYCEMIA 06/09/2011 ROSE DO, GIGI K 251.2 HYPOGLYCEMIA 06/09/2011 BOEKHOUT PHD, JEN A 251.2 HYPOGLYCEMIA 06/09/2011 VALENTINE RN BSNLATASHA 251.2 HYPOGLYCEMIA 06/09/2011 ROSE DO, GIGI K 251.2 HYPOGLYCEMIA 06/09/2011 BOEKHOUT PHD, EJN A 251.2 HYPOGLYCEMIA 06/09/2011 ROSE DO, GIGI K 251.2 HYPOGLYCEMIA 06/09/2011 EATON RN BSN, JENNIFER L 251.2 HYPOGLYCEMIA 06/09/2011 BOEKHOUT PHD, JEN A 251.2 HYPOGLYCEMIA 06/09/2011 EATON RN BSN, JENNIFER L 251.2 HYPOGLYCEMIA 06/09/2011 BOEKHOUT PHD, JEN A 251.2 HYPOGLYCEMIA 06/09/2011 EATON RN BSN, JENNIFER L 251.2 HYPOGLYCEMIA 06/09/2011 BOEKHOUT PHD, JEN A 251.2 HYPOGLYCEMIA 06/09/2011 ROSE DO, GIGI K 251.2 HYPOGLYCEMIA 06/09/2011 EATON RN BSN, JENNIFER L 251.2 HYPOGLYCEMIA 06/09/2011 BOEGIGIOUT PHD, JEN A 251.2 HYPOGLYCEMIA 06/09/2011 ROSE DO, GIGI K 251.2 HYPOGLYCEMIA 06/09/2011 EATON RN BSN, JENNIFER L 251.2 HYPOGLYCEMIA 06/09/2011 BOEKHOUT PHD, JEN A 251.2 HYPOGLYCEMIA 06/09/2011 EATON RN BSN, JENNIFER L 251.2 HYPOGLYCEMIA 06/09/2011 BOEKHOUT PHD, JEN A 251.2 HYPOGLYCEMIA 06/09/2011 EATON RN BSN, JENNIFER L 251.2 HYPOGLYCEMIA 06/09/2011 ROSE DO, GIGI K 251.2 HYPOGLYCEMIA 06/09/2011 BOEKHOUT PHD, JEN A 251.2 HYPOGLYCEMIA 06/09/2011 ROSE DO, GIGI K 251.2 HYPOGLYCEMIA 06/09/2011 BOEKHOUT PHD, JEN A 251.2 HYPOGLYCEMIA 06/09/2011 BOEKHOUT PHD, JEN A 251.2 HYPOGLYCEMIA 06/09/2011 ROSE DO, GIGI K 251.2 HYPOGLYCEMIA 06/09/2011 BOEKHOUT PHD, JEN A 251.2 HYPOGLYCEMIA 06/09/2011 EATON RN BSN, JENNIFER L 251.2 HYPOGLYCEMIA 06/09/2011 BOEKHOUT PHD, JEN A 251.2 HYPOGLYCEMIA 06/09/2011 TRAE DPMGINA 251.2 HYPOGLYCEMIA 06/09/2011 ROSE DO, GIGI K 251.2 HYPOGLYCEMIA 06/09/2011 JENNIFER IGLESIAS APRN 251.2 HYPOGLYCEMIA 06/09/2011 ALY PHD, JEN Odom 251.2 HYPOGLYCEMIA 06/09/2011 ROSE DO, GIGI K 251.2 HYPOGLYCEMIA 06/09/2011 ALY PHD, JEN A 251.2 HYPOGLYCEMIA 06/09/2011 ALY PHD, JEN Odom 251.2 HYPOGLYCEMIA 06/20/2011 ALY BENITEZ, JEN Odom 781.0 involuntary movements [Sx] 06/20/2011 781.0 involuntary movements [Sx] 06/20/2011 781.0 involuntary movements [Sx] 06/20/2011 JOSEFINA RODRIGUEZ MD 781.0 involuntary movements [Sx] 06/20/2011 781.0 involuntary movements [Sx] 06/20/2011 JEN LU PHD 781.0 involuntary movements [Sx] 06/20/2011 JOSEFINA RODRIGUEZ MD 781.0 involuntary movements [Sx] 06/20/2011 JENNIFER IGLESIAS APRN 781.0 involuntary movements [Sx] 06/20/2011 781.0 involuntary movements [Sx] 06/20/2011 JOSEFINA RODRIGUEZ MD 781.0 involuntary movements [Sx] 06/20/2011 JOSEFINA RODRIGUEZ MD 781.0 involuntary movements [Sx] 06/20/2011 781.0 involuntary movements [Sx] 06/20/2011 JOSEFINA RODRIGUEZ MD 781.0 involuntary movements [Sx] 06/20/2011 MOSHE BEAULIEU 781.0 involuntary movements [Sx] 06/20/2011 JENNIFER IGLESIAS APRN 781.0 involuntary movements [Sx] 06/20/2011 781.0 involuntary movements [Sx] 06/20/2011 781.0 involuntary movements [Sx] 06/20/2011 781.0 involuntary movements [Sx] 06/20/2011 781.0 involuntary movements [Sx] 06/20/2011 781.0 involuntary movements [Sx] 06/20/2011 781.0 involuntary movements [Sx] 06/20/2011 781.0 involuntary movements [Sx] 06/20/2011 781.0 involuntary movements [Sx] 06/20/2011 781.0 involuntary movements [Sx] 06/20/2011 781.0 involuntary movements [Sx] 06/20/2011 781.0 involuntary movements [Sx] 06/20/2011 781.0 involuntary movements [Sx] 06/20/2011 ROSE DO, GIGI K 781.0 involuntary movements [Sx] 06/20/2011 ALY BENITEZ, JEN A 781.0 involuntary movements [Sx] 06/20/2011 VALENTINE RN BSNLATASHA Miles S 781.0 involuntary movements [Sx] 06/20/2011 ROSE DO, GIGI K 781.0 involuntary movements [Sx] 06/20/2011 ALY BENITEZ, JEN A 781.0 involuntary movements [Sx] 06/20/2011 ROSE DO, GIGI K 781.0 involuntary movements [Sx] 06/20/2011 EATON RN BSN, JENNIFER L 781.0 involuntary movements [Sx] 06/20/2011 ALY BENITEZ, JEN A 781.0 involuntary movements [Sx] 06/20/2011 EATON RN BSN, JENNIFER L 781.0 involuntary movements [Sx] 06/20/2011 ALY BENITEZ, JEN A 781.0 involuntary movements [Sx] 06/20/2011 EATON RN BSN, JENNIFER L 781.0 involuntary movements [Sx] 06/20/2011 ALY BENITEZ, JEN A 781.0 involuntary movements [Sx] 06/20/2011 ROSE DO, GIGI K 781.0 involuntary movements [Sx] 06/20/2011 EATON RN BSN, JENNIFER L 781.0 involuntary movements [Sx] 06/20/2011 ALY BENITEZ, JEN A 781.0 involuntary movements [Sx] 06/20/2011 ROSE DO, GIGI K 781.0 involuntary movements [Sx] 06/20/2011 EATON RN BSN, JENNIFER L 781.0 involuntary movements [Sx] 06/20/2011 ALY BENITEZ, JEN A 781.0 involuntary movements [Sx] 06/20/2011 EATON RN BSN, JENNIFER L 781.0 involuntary movements [Sx] 06/20/2011 ALY BENITEZ, JEN A 781.0 involuntary movements [Sx] 06/20/2011 KELSIE JNENIFER GILLESPIE L 781.0 involuntary movements [Sx] 06/20/2011 ROSE DO, GIGI K 781.0 involuntary movements [Sx] 06/20/2011 ALY BENITEZ, JEN A 781.0 involuntary movements [Sx] 06/20/2011 ROSE DO, GIGI K 781.0 involuntary movements [Sx] 06/20/2011 ALY PHD, JEN A 781.0 involuntary movements [Sx] 06/20/2011 ALY BENITEZ, JEN A 781.0 involuntary movements [Sx] 06/20/2011 ROSE DO, GIGI K 781.0 involuntary movements [Sx] 06/20/2011 ALY BENITEZ, JEN A 781.0 involuntary movements [Sx] 06/20/2011 JENNIFER IGLESIAS APRN L 781.0 involuntary movements [Sx] 06/20/2011 ALY BENITEZ, JEN A 781.0 involuntary movements [Sx] 06/20/2011 TRAE DPM GINA 781.0 involuntary movements [Sx] 06/20/2011 ROSE DO, GIGI K 781.0 involuntary movements [Sx] 06/20/2011 BOBENA JENNIFER GILLESPIE L 781.0 involuntary movements [Sx] 06/20/2011 ALY BENIETZ, JEN A 781.0 involuntary movements [Sx] 06/20/2011 ROSE DO, GIGI K 781.0 involuntary movements [Sx] 06/20/2011 ALY BENITEZ, JEN A 781.0 involuntary movements [Sx] 06/20/2011 JEN LU PHD A 781.0 involuntary movements [Sx] 06/24/2011 Ot 719.51 JT STIFFNESS NEC-SHLDER 06/24/2011 Ot 726.10 BURSAE TENDONS DIS SHLDER NOS 06/24/2011 Ot V57.1 PHYSICAL THERAPY NEC 08/29/2011 JEN LU PHD 327.23 OBSTRUCTIVE SLEEP APNEA (ADULT) (PEDIATRIC) 08/29/2011 JEN LU PHD V72.84 PRE-OPERATIVE EXAMINATION UNSPECIFIED 08/29/2011 327.23 OBSTRUCTIVE SLEEP APNEA (ADULT) (PEDIATRIC) 08/29/2011 V72.84 PRE- OPERATIVE EXAMINATION UNSPECIFIED 08/29/2011 327.23 OBSTRUCTIVE SLEEP APNEA (ADULT) (PEDIATRIC) 08/29/2011 V72.84 PRE- OPERATIVE EXAMINATION UNSPECIFIED 08/29/2011 JOSEFINA RODRIGUEZ MD 327.23 OBSTRUCTIVE SLEEP APNEA (ADULT) (PEDIATRIC) 08/29/2011 JOSEFINA RODRIGUEZ MD V72.84 PRE-OPERATIVE EXAMINATION UNSPECIFIED 08/29/2011 327.23 OBSTRUCTIVE SLEEP APNEA (ADULT) (PEDIATRIC) 08/29/2011 V72.84 PRE- OPERATIVE EXAMINATION UNSPECIFIED 08/29/2011 ALY BENITEZ, JEN Odom 327.23 OBSTRUCTIVE SLEEP APNEA (ADULT) (PEDIATRIC) 08/29/2011 ALY BENITEZ, JEN Odom V72.84 PRE-OPERATIVE EXAMINATION UNSPECIFIED 08/29/2011 JOSEFINA RODRIGUEZ MD 327.23 OBSTRUCTIVE SLEEP APNEA (ADULT) (PEDIATRIC) 08/29/2011 JOSEFINA RODRIGUEZ MD V72.84 PRE-OPERATIVE EXAMINATION UNSPECIFIED 08/29/2011 JENNIFER IGLESIAS APRN L 327.23 OBSTRUCTIVE SLEEP APNEA (ADULT) (PEDIATRIC) 08/29/2011 JENNIFER IGLESIAS APRN L V72.84 PRE-OPERATIVE EXAMINATION UNSPECIFIED 08/29/2011 327.23 OBSTRUCTIVE SLEEP APNEA (ADULT) (PEDIATRIC) 08/29/2011 V72.84 PRE- OPERATIVE EXAMINATION UNSPECIFIED 08/29/2011 JOSEFINA RODRIGUEZ MD 327.23 OBSTRUCTIVE SLEEP APNEA (ADULT) (PEDIATRIC) 08/29/2011 JOSEFINA RODRIGUEZ MD V72.84 PRE-OPERATIVE EXAMINATION UNSPECIFIED 08/29/2011 JOSEFINA RODRIGUEZ MD 327.23 OBSTRUCTIVE SLEEP APNEA (ADULT) (PEDIATRIC) 08/29/2011 JOSEFINA RODRIGUEZ MD V72.84 PRE-OPERATIVE EXAMINATION UNSPECIFIED 08/29/2011 327.23 OBSTRUCTIVE SLEEP APNEA (ADULT) (PEDIATRIC) 08/29/2011 V72.84 PRE- OPERATIVE EXAMINATION UNSPECIFIED 08/29/2011 JOSEFINA RODRIGUEZ MD 327.23 OBSTRUCTIVE SLEEP APNEA (ADULT) (PEDIATRIC) 08/29/2011 JOSEFINA RODRIGUEZ MD V72.84 PRE-OPERATIVE EXAMINATION UNSPECIFIED 08/29/2011 BAQIRTIFFANIEZ 327.23 OBSTRUCTIVE SLEEP APNEA (ADULT) (PEDIATRIC) 08/29/2011 BAQIR, MOSHE V72.84 PRE -OPERATIVE EXAMINATION UNSPECIFIED 08/29/2011 JENNIFER IGLESIAS APRN 327.23 OBSTRUCTIVE SLEEP APNEA (ADULT) (PEDIATRIC) 08/29/2011 JENNIFER IGLESIAS APRN V72.84 PRE-OPERATIVE EXAMINATION UNSPECIFIED 08/29/2011 327.23 OBSTRUCTIVE SLEEP APNEA (ADULT) (PEDIATRIC) 08/29/2011 V72.84 PRE- OPERATIVE EXAMINATION UNSPECIFIED 08/29/2011 327.23 OBSTRUCTIVE SLEEP APNEA (ADULT) (PEDIATRIC) 08/29/2011 V72.84 PRE- OPERATIVE EXAMINATION UNSPECIFIED 08/29/2011 327.23 OBSTRUCTIVE SLEEP APNEA (ADULT) (PEDIATRIC) 08/29/2011 V72.84 PRE- OPERATIVE EXAMINATION UNSPECIFIED 08/29/2011 327.23 OBSTRUCTIVE SLEEP APNEA (ADULT) (PEDIATRIC) 08/29/2011 V72.84 PRE- OPERATIVE EXAMINATION UNSPECIFIED 08/29/2011 327.23 OBSTRUCTIVE SLEEP APNEA (ADULT) (PEDIATRIC) 08/29/2011 V72.84 PRE- OPERATIVE EXAMINATION UNSPECIFIED 08/29/2011 327.23 OBSTRUCTIVE SLEEP APNEA (ADULT) (PEDIATRIC) 08/29/2011 V72.84 PRE- OPERATIVE EXAMINATION UNSPECIFIED 08/29/2011 327.23 OBSTRUCTIVE SLEEP APNEA (ADULT) (PEDIATRIC) 08/29/2011 V72.84 PRE- OPERATIVE EXAMINATION UNSPECIFIED 08/29/2011 327.23 OBSTRUCTIVE SLEEP APNEA (ADULT) (PEDIATRIC) 08/29/2011 V72.84 PRE- OPERATIVE EXAMINATION UNSPECIFIED 08/29/2011 327.23 OBSTRUCTIVE SLEEP APNEA (ADULT) (PEDIATRIC) 08/29/2011 V72.84 PRE- OPERATIVE EXAMINATION UNSPECIFIED 08/29/2011 327.23 OBSTRUCTIVE SLEEP APNEA (ADULT) (PEDIATRIC) 08/29/2011 V72.84 PRE- OPERATIVE EXAMINATION UNSPECIFIED 08/29/2011 327.23 OBSTRUCTIVE SLEEP APNEA (ADULT) (PEDIATRIC) 08/29/2011 V72.84 PRE- OPERATIVE EXAMINATION UNSPECIFIED 08/29/2011 327.23 OBSTRUCTIVE SLEEP APNEA (ADULT) (PEDIATRIC) 08/29/2011 V72.84 PRE- OPERATIVE EXAMINATION UNSPECIFIED 08/29/2011 GIGI ROSE DO 327.23 OBSTRUCTIVE SLEEP APNEA (ADULT) (PEDIATRIC) 08/29/2011 GIGI ROSE DO V72.84 PRE-OPERATIVE EXAMINATION UNSPECIFIED 08/29/2011 ALY BENITEZ, JEN A 327.23 OBSTRUCTIVE SLEEP APNEA (ADULT) (PEDIATRIC) 08/29/2011 ALY BENITEZ, JEN A V72.84 PRE-OPERATIVE EXAMINATION UNSPECIFIED 08/29/2011 VALENTINEMADYSON ELLER APRNNDA S 327.23 OBSTRUCTIVE SLEEP APNEA (ADULT) (PEDIATRIC) 08/29/2011 VALENTINE RN BSNMADYSON MilesNDA S V72.84 PRE-OPERATIVE EXAMINATION UNSPECIFIED 08/29/2011 ROSE DO, GIGI K 327.23 OBSTRUCTIVE SLEEP APNEA (ADULT) (PEDIATRIC) 08/29/2011 ROSE DO, GIGI K V72.84 PRE-OPERATIVE EXAMINATION UNSPECIFIED 08/29/2011 ALY BENITEZ, JEN A 327.23 OBSTRUCTIVE SLEEP APNEA (ADULT) (PEDIATRIC) 08/29/2011 ALY BENITEZ JEN A V72.84 PRE-OPERATIVE EXAMINATION UNSPECIFIED 08/29/2011 ROSE DO, GIGI K 327.23 OBSTRUCTIVE SLEEP APNEA (ADULT) (PEDIATRIC) 08/29/2011 ROSE DO, GIGI K V72.84 PRE-OPERATIVE EXAMINATION UNSPECIFIED 08/29/2011 EATENA RN BSN, JENNIFER L 327.23 OBSTRUCTIVE SLEEP APNEA (ADULT) (PEDIATRIC) 08/29/2011 EATENA RN BSN, JENNIFER L V72.84 PRE-OPERATIVE EXAMINATION UNSPECIFIED 08/29/2011 JEN LU PHD A 327.23 OBSTRUCTIVE SLEEP APNEA (ADULT) (PEDIATRIC) 08/29/2011 ALY BENITEZ, JEN A V72.84 PRE-OPERATIVE EXAMINATION UNSPECIFIED 08/29/2011 EATON RN BSN, JENNIFER L 327.23 OBSTRUCTIVE SLEEP APNEA (ADULT) (PEDIATRIC) 08/29/2011 EATENA GILLESPIE JENNIFER L V72.84 PRE-OPERATIVE EXAMINATION UNSPECIFIED 08/29/2011 ALY BENITEZ JEN A 327.23 OBSTRUCTIVE SLEEP APNEA (ADULT) (PEDIATRIC) 08/29/2011 ALY BENITEZ, JEN A V72.84 PRE-OPERATIVE EXAMINATION UNSPECIFIED 08/29/2011 EATON RN BSN, JENNIFER L 327.23 OBSTRUCTIVE SLEEP APNEA (ADULT) (PEDIATRIC) 08/29/2011 EATON RN BSN, JENNIFER L V72.84 PRE-OPERATIVE EXAMINATION UNSPECIFIED 08/29/2011 ALY BENITEZ JEN A 327.23 OBSTRUCTIVE SLEEP APNEA (ADULT) (PEDIATRIC) 08/29/2011 ALY BENITEZ JEN A V72.84 PRE-OPERATIVE EXAMINATION UNSPECIFIED 08/29/2011 DANIEL ROSE DOA K 327.23 OBSTRUCTIVE SLEEP APNEA (ADULT) (PEDIATRIC) 08/29/2011 DANIEL ROSE DOA K V72.84 PRE-OPERATIVE EXAMINATION UNSPECIFIED 08/29/2011 EATENA GILLESPIE, JENNIFER L 327.23 OBSTRUCTIVE SLEEP APNEA (ADULT) (PEDIATRIC) 08/29/2011 EATENA GILLESPIE, JENNIFER L V72.84 PRE-OPERATIVE EXAMINATION UNSPECIFIED 08/29/2011 JEN LU PHD A 327.23 OBSTRUCTIVE SLEEP APNEA (ADULT) (PEDIATRIC) 08/29/2011 JEN LU PHD A V72.84 PRE-OPERATIVE EXAMINATION UNSPECIFIED 08/29/2011 DANIEL ROSE DOA K 327.23 OBSTRUCTIVE SLEEP APNEA (ADULT) (PEDIATRIC) 08/29/2011 DANIEL ROSE DOA K V72.84 PRE-OPERATIVE EXAMINATION UNSPECIFIED 08/29/2011 EATENA RN BSN, JENNIFER L 327.23 OBSTRUCTIVE SLEEP APNEA (ADULT) (PEDIATRIC) 08/29/2011 YINKA IGLESIAS APRNSON L V72.84 PRE-OPERATIVE EXAMINATION UNSPECIFIED 08/29/2011 JEN LU PHD A 327.23 OBSTRUCTIVE SLEEP APNEA (ADULT) (PEDIATRIC) 08/29/2011 JEN LU PHD A V72.84 PRE-OPERATIVE EXAMINATION UNSPECIFIED 08/29/2011 YINKA IGLESIAS APRNSON L 327.23 OBSTRUCTIVE SLEEP APNEA (ADULT) (PEDIATRIC) 08/29/2011 KELSIE GILLESPIE JENNIFER L V72.84 PRE-OPERATIVE EXAMINATION UNSPECIFIED 08/29/2011 JEN LU PHD A 327.23 OBSTRUCTIVE SLEEP APNEA (ADULT) (PEDIATRIC) 08/29/2011 JEN LU PHD A V72.84 PRE-OPERATIVE EXAMINATION UNSPECIFIED 08/29/2011 EATENA GILLESPIE, JENNIFER L 327.23 OBSTRUCTIVE SLEEP APNEA (ADULT) (PEDIATRIC) 08/29/2011 KELSIE GILLESPIE JENNIFER L V72.84 PRE-OPERATIVE EXAMINATION UNSPECIFIED 08/29/2011 DANIEL ROSE DOA K 327.23 OBSTRUCTIVE SLEEP APNEA (ADULT) (PEDIATRIC) 08/29/2011 DANIEL ROSE DOA K V72.84 PRE-OPERATIVE EXAMINATION UNSPECIFIED 08/29/2011 JEN LU PHD A 327.23 OBSTRUCTIVE SLEEP APNEA (ADULT) (PEDIATRIC) 08/29/2011 JEN LU PHD A V72.84 PRE-OPERATIVE EXAMINATION UNSPECIFIED 08/29/2011 ROSE DO GIGI K 327.23 OBSTRUCTIVE SLEEP APNEA (ADULT) (PEDIATRIC) 08/29/2011 ROSE DO GIGI K V72.84 PRE-OPERATIVE EXAMINATION UNSPECIFIED 08/29/2011 JEN LU PHD A 327.23 OBSTRUCTIVE SLEEP APNEA (ADULT) (PEDIATRIC) 08/29/2011 JEN LU PHD A V72.84 PRE-OPERATIVE EXAMINATION UNSPECIFIED 08/29/2011 JEN LU PHD A 327.23 OBSTRUCTIVE SLEEP APNEA (ADULT) (PEDIATRIC) 08/29/2011 JEN LU PHD A V72.84 PRE-OPERATIVE EXAMINATION UNSPECIFIED 08/29/2011 DANIEL ROSE DOA K 327.23 OBSTRUCTIVE SLEEP APNEA (ADULT) (PEDIATRIC) 08/29/2011 DANIEL ROSE DOA K V72.84 PRE-OPERATIVE EXAMINATION UNSPECIFIED 08/29/2011 JEN LU PHD A 327.23 OBSTRUCTIVE SLEEP APNEA (ADULT) (PEDIATRIC) 08/29/2011 JEN LU PHD A V72.84 PRE-OPERATIVE EXAMINATION UNSPECIFIED 08/29/2011 EATENA RN BSN, JENNIFER L 327.23 OBSTRUCTIVE SLEEP APNEA (ADULT) (PEDIATRIC) 08/29/2011 EATENA GILLESPIE JENNIFER L V72.84 PRE-OPERATIVE EXAMINATION UNSPECIFIED 08/29/2011 JEN LU PHD A 327.23 OBSTRUCTIVE SLEEP APNEA (ADULT) (PEDIATRIC) 08/29/2011 JEN LU PHD A V72.84 PRE-OPERATIVE EXAMINATION UNSPECIFIED 08/29/2011 TRAE DPM, GINA 327.23 OBSTRUCTIVE SLEEP APNEA (ADULT) (PEDIATRIC) 08/29/2011 TRAE DPM, GINA V72.84 PRE-OPERATIVE EXAMINATION UNSPECIFIED 08/29/2011 ROSE DO GIGI K 327.23 OBSTRUCTIVE SLEEP APNEA (ADULT) (PEDIATRIC) 08/29/2011 ROSE DO GIGI K V72.84 PRE-OPERATIVE EXAMINATION UNSPECIFIED 08/29/2011 EATON RN BSN, JENNIFER L 327.23 OBSTRUCTIVE SLEEP APNEA (ADULT) (PEDIATRIC) 08/29/2011 EATON RN BSN, JENNIFER L V72.84 PRE-OPERATIVE EXAMINATION UNSPECIFIED 08/29/2011 JEN LU PHD 327.23 OBSTRUCTIVE SLEEP APNEA (ADULT) (PEDIATRIC) 08/29/2011 JEN LU PHD V72.84 PRE-OPERATIVE EXAMINATION UNSPECIFIED 08/29/2011 ROSE GIGI 327.23 OBSTRUCTIVE SLEEP APNEA (ADULT) (PEDIATRIC) 08/29/2011 ROSE HERNANDEZ GIGI Elvie V72.84 PRE-OPERATIVE EXAMINATION UNSPECIFIED 08/29/2011 JEN LU PHD 327.23 OBSTRUCTIVE SLEEP APNEA (ADULT) (PEDIATRIC) 08/29/2011 JEN LU PHD V72.84 PRE-OPERATIVE EXAMINATION UNSPECIFIED 08/29/2011 JEN LU PHD 327.23 OBSTRUCTIVE SLEEP APNEA (ADULT) (PEDIATRIC) 08/29/2011 JEN LU PHD V72.84 PRE-OPERATIVE EXAMINATION UNSPECIFIED 09/21/2011 Ot 250.00 DIAB JEFFREY WO COMPL, TYPE II OR UNSPEC TY 09/21/2011 Ot 305.1 TOBACCO USE DISORDER 09/21/2011 Ot 334.9 SPINOCEREBELLAR DIS NOS 09/21/2011 Ot 492.8 EMPHYSEMA NEC 09/21/2011 Ot 726.2 SHOULDER REGION DIS NEC 09/21/2011 Ot 840.7 (SLAP) SUPERIOR GLENOID LABRUM LESIONS 09/21/2011 Ot E000.8 OTHER EXTERNAL CAUSE STATUS 09/21/2011 Ot E849.0 ACCIDENT IN HOME 09/21/2011 Ot E888.9 FALL NOS 09/21/2011 Ot V12.59 HX- CIRCULATORY SYST DIS,NEC 09/21/2011 Ot V58.66 LONG-TERM ( CURRENT) USE OF ASPIRIN 09/21/2011 Ot V58.69 OTH MED,LT, CURRENT USE 09/27/2011 JEN UL PHD 311 DEPRESSIVE DISORDER NOS 09/27/2011 311 DEPRESSIVE DISORDER NOS 09/27/2011 311 DEPRESSIVE DISORDER NOS 09/27/2011 JOSEFINA RODRIGUEZ MD 311 DEPRESSIVE DISORDER NOS 09/27/2011 311 DEPRESSIVE DISORDER NOS 09/27/2011 JEN LU PHD 311 DEPRESSIVE DISORDER NOS 09/27/2011 JOSEFINA RODRIGUEZ MD 311 DEPRESSIVE DISORDER NOS 09/27/2011 JENNIFER IGLESIAS APRN 311 DEPRESSIVE DISORDER NOS 09/27/2011 311 DEPRESSIVE DISORDER NOS 09/27/2011 JOSEFINA RODRIGUEZ MD 311 DEPRESSIVE DISORDER NOS 09/27/2011 JOSEFINA RODRIGUEZ MD 311 DEPRESSIVE DISORDER NOS 09/27/2011 311 DEPRESSIVE DISORDER NOS 09/27/2011 JOSEFINA RODRIGUEZ MD 311 DEPRESSIVE DISORDER NOS 09/27/2011 MOSHE BEAULIEU 311 DEPRESSIVE DISORDER NOS 09/27/2011 EATJENNIFER SUTHERLAND APRN L 311 DEPRESSIVE DISORDER NOS 09/27/2011 311 DEPRESSIVE DISORDER NOS 09/27/2011 311 DEPRESSIVE DISORDER NOS 09/27/2011 311 DEPRESSIVE DISORDER NOS 09/27/2011 311 DEPRESSIVE DISORDER NOS 09/27/2011 311 DEPRESSIVE DISORDER NOS 09/27/2011 311 DEPRESSIVE DISORDER NOS 09/27/2011 311 DEPRESSIVE DISORDER NOS 09/27/2011 311 DEPRESSIVE DISORDER NOS 09/27/2011 311 DEPRESSIVE DISORDER NOS 09/27/2011 311 DEPRESSIVE DISORDER NOS 09/27/2011 311 DEPRESSIVE DISORDER NOS 09/27/2011 311 DEPRESSIVE DISORDER NOS 09/27/2011 DANIEL ROSE DOA K 311 DEPRESSIVE DISORDER NOS 09/27/2011 ALY PHD, JEN A 311 DEPRESSIVE DISORDER NOS 09/27/2011 LATASHA GRIJALVA APRN 311 DEPRESSIVE DISORDER NOS 09/27/2011 DANIEL ROSE DOA K 311 DEPRESSIVE DISORDER NOS 09/27/2011 ALY PHD, JEN A 311 DEPRESSIVE DISORDER NOS 09/27/2011 ROSE DANIEL HERNANDEZA K 311 DEPRESSIVE DISORDER NOS 09/27/2011 YINKA IGLESIAS APRNSON L 311 DEPRESSIVE DISORDER NOS 09/27/2011 ALY PHD, JEN A 311 DEPRESSIVE DISORDER NOS 09/27/2011 YINKA IGLESIAS APRNSON L 311 DEPRESSIVE DISORDER NOS 09/27/2011 ALY PHD, JEN A 311 DEPRESSIVE DISORDER NOS 09/27/2011 YINKA IGLESIAS APRNSON L 311 DEPRESSIVE DISORDER NOS 09/27/2011 ALY PHD, JEN A 311 DEPRESSIVE DISORDER NOS 09/27/2011 GIGI ROSE DO K 311 DEPRESSIVE DISORDER NOS 09/27/2011 KELSIE GILLESPIE JENNIFER L 311 DEPRESSIVE DISORDER NOS 09/27/2011 ALY PHD, JEN A 311 DEPRESSIVE DISORDER NOS 09/27/2011 GIGI ROSE DO K 311 DEPRESSIVE DISORDER NOS 09/27/2011 KELSIE GILLESPIE JENNIFER L 311 DEPRESSIVE DISORDER NOS 09/27/2011 ALY PHD, JEN A 311 DEPRESSIVE DISORDER NOS 09/27/2011 YINKA IGLESIAS APRNSON L 311 DEPRESSIVE DISORDER NOS 09/27/2011 ALY PHD, JEN A 311 DEPRESSIVE DISORDER NOS 09/27/2011 KELSIE RN BSN, JENNIFER L 311 DEPRESSIVE DISORDER NOS 09/27/2011 ROSE DO, GIGI K 311 DEPRESSIVE DISORDER NOS 09/27/2011 ALY PHD, JEN A 311 DEPRESSIVE DISORDER NOS 09/27/2011 ROSE DO, GIGI K 311 DEPRESSIVE DISORDER NOS 09/27/2011 ALY PHD, JEN A 311 DEPRESSIVE DISORDER NOS 09/27/2011 ALY BENITEZ, JEN A 311 DEPRESSIVE DISORDER NOS 09/27/2011 ROSE DO, GIGI K 311 DEPRESSIVE DISORDER NOS 09/27/2011 ALY PHD, JEN A 311 DEPRESSIVE DISORDER NOS 09/27/2011 KELSIE RN BSN, JENNIFER L 311 DEPRESSIVE DISORDER NOS 09/27/2011 ALY PHD, JEN A 311 DEPRESSIVE DISORDER NOS 09/27/2011 GINA ROBISON DPM 311 DEPRESSIVE DISORDER NOS 09/27/2011 ROSE DO, GIGI K 311 DEPRESSIVE DISORDER NOS 09/27/2011 BOBENA RN BSN, JENNIFER L 311 DEPRESSIVE DISORDER NOS 09/27/2011 ALY PHD, JEN A 311 DEPRESSIVE DISORDER NOS 09/27/2011 ROSE DO, GIGI K 311 DEPRESSIVE DISORDER NOS 09/27/2011 ALY PHD, JEN A 311 DEPRESSIVE DISORDER NOS 09/27/2011 ALY PHD, JEN A 311 DEPRESSIVE DISORDER NOS 10/27/2011 Ot V57.1 PHYSICAL THERAPY NEC 10/27/2011 Ot V58.78 AFTERCARE POST SURGERY MUSCULOSKELETAL S 01/04/2012 JEN LU PHD 338.29 CHRONIC PAIN 01/04/2012 JEN LU PHD V58.69 taking high-risk medication 01/04/2012 338.29 CHRONIC PAIN 01/04/2012 V58.69 taking high- risk medication 01/04/2012 338.29 CHRONIC PAIN 01/04/2012 V58.69 taking high- risk medication 01/04/2012 JOSEFINA RODRIGUEZ MD 338.29 CHRONIC PAIN 01/04/2012 JOSEFINA RODRIGUEZ MD V58.69 taking high-risk medication 01/04/2012 338.29 CHRONIC PAIN 01/04/2012 V58.69 taking high- risk medication 01/04/2012 JEN LU PHD 338.29 CHRONIC PAIN 01/04/2012 JEN LU PHD V58.69 taking high-risk medication 01/04/2012 JOSEFINA RODRIGUEZ MD 338.29 CHRONIC PAIN 01/04/2012 JOSEFINA RODRIGUEZ MD V58.69 taking high-risk medication 01/04/2012 JENNIFER IGLESIAS APRN 338.29 CHRONIC PAIN 01/04/2012 JENNIFER IGLESIAS APRN V58.69 taking high-risk medication 01/04/2012 338.29 CHRONIC PAIN 01/04/2012 V58.69 taking high- risk medication 01/04/2012 JOSEFINA RODRIGUEZ MD 338.29 CHRONIC PAIN 01/04/2012 JOSEFINA RODRIGUEZ MD V58.69 taking high-risk medication 01/04/2012 JOSEFINA RODRIGUEZ MD 338.29 CHRONIC PAIN 01/04/2012 JOSEFINA RODRIGUEZ MD V58.69 taking high-risk medication 01/04/2012 338.29 CHRONIC PAIN 01/04/2012 V58.69 taking high- risk medication 01/04/2012 JOSEFINA RODRIGUEZ MD 338.29 CHRONIC PAIN 01/04/2012 JOSEFINA RODRIGUEZ MD V58.69 taking high-risk medication 01/04/2012 MOSHE BEAULIEU 338.29 CHRONIC PAIN 01/04/2012 MOSHE BEAULIEU V58.69 taking high-risk medication 01/04/2012 JENNIFER IGLESIAS APRN 338.29 CHRONIC PAIN 01/04/2012 JENNIFER IGLESIAS APRN V58.69 taking high-risk medication 01/04/2012 338.29 CHRONIC PAIN 01/04/2012 V58.69 taking high- risk medication 01/04/2012 338.29 CHRONIC PAIN 01/04/2012 V58.69 taking high- risk medication 01/04/2012 338.29 CHRONIC PAIN 01/04/2012 V58.69 taking high- risk medication 01/04/2012 338.29 CHRONIC PAIN 01/04/2012 V58.69 taking high- risk medication 01/04/2012 338.29 CHRONIC PAIN 01/04/2012 V58.69 taking high- risk medication 01/04/2012 338.29 CHRONIC PAIN 01/04/2012 V58.69 taking high- risk medication 01/04/2012 338.29 CHRONIC PAIN 01/04/2012 V58.69 taking high- risk medication 01/04/2012 338.29 CHRONIC PAIN 01/04/2012 V58.69 taking high- risk medication 01/04/2012 338.29 CHRONIC PAIN 01/04/2012 V58.69 taking high- risk medication 01/04/2012 338.29 CHRONIC PAIN 01/04/2012 V58.69 taking high- risk medication 01/04/2012 338.29 CHRONIC PAIN 01/04/2012 V58.69 taking high- risk medication 01/04/2012 338.29 CHRONIC PAIN 01/04/2012 V58.69 taking high- risk medication 01/04/2012 GIGI ROSE DO K 338.29 CHRONIC PAIN 01/04/2012 ROSE GIGI HERNANDEZ K V58.69 taking high-risk medication 01/04/2012 JEN LU PHD A 338.29 CHRONIC PAIN 01/04/2012 ALY BENITEZ, JEN Odom V58.69 taking high-risk medication 01/04/2012 PEDRO GRIJALVA APRNA S 338.29 CHRONIC PAIN 01/04/2012 PEDRO GRIJALVA APRNA S V58.69 taking high-risk medication 01/04/2012 ROSE GIGI HERNANDEZ K 338.29 CHRONIC PAIN 01/04/2012 DANIEL ROSE DOA K V58.69 taking high-risk medication 01/04/2012 JEN LU PHD 338.29 CHRONIC PAIN 01/04/2012 ALY BENITEZ, JEN Odom V58.69 taking high-risk medication 01/04/2012 GIGI ROSE DO K 338.29 CHRONIC PAIN 01/04/2012 GIGI ROSE DO K V58.69 taking high-risk medication 01/04/2012 JENNIFER IGLESIAS APRN 338.29 CHRONIC PAIN 01/04/2012 JENNIFER IGLESIAS APRN V58.69 taking high-risk medication 01/04/2012 JEN LU PHD 338.29 CHRONIC PAIN 01/04/2012 JEN LU PHD V58.69 taking high-risk medication 01/04/2012 JENNIFER IGLESIAS APRN 338.29 CHRONIC PAIN 01/04/2012 JENNIFER IGLESIAS APRN V58.69 taking high-risk medication 01/04/2012 JEN LU PHD A 338.29 CHRONIC PAIN 01/04/2012 JEN LU PHD V58.69 taking high-risk medication 01/04/2012 JENNIFER IGLESIAS APRN 338.29 CHRONIC PAIN 01/04/2012 JENNIFER IGLESIAS APRN V58.69 taking high-risk medication 01/04/2012 JEN LU PHD 338.29 CHRONIC PAIN 01/04/2012 ALY BENITEZ, JEN Odom V58.69 taking high-risk medication 01/04/2012 ROSE DO GIGI K 338.29 CHRONIC PAIN 01/04/2012 ROSE DO GIGI K V58.69 taking high-risk medication 01/04/2012 EATJENNIFER SUTHERLAND APRN L 338.29 CHRONIC PAIN 01/04/2012 EATENA RN BSN, EJNNIFER L V58.69 taking high-risk medication 01/04/2012 ALY BENITEZ, JEN Odom 338.29 CHRONIC PAIN 01/04/2012 JEN LU PHD V58.69 taking high-risk medication 01/04/2012 ROSE DO GIGI K 338.29 CHRONIC PAIN 01/04/2012 ROSE DO GIGI K V58.69 taking high-risk medication 01/04/2012 JENNIFER IGLESIAS APRN L 338.29 CHRONIC PAIN 01/04/2012 JENNIFER IGLESIAS APRN V58.69 taking high-risk medication 01/04/2012 JEN LU PHD 338.29 CHRONIC PAIN 01/04/2012 JEN LU PHD V58.69 taking high-risk medication 01/04/2012 KELSIE GILLESPIE JENNIFER L 338.29 CHRONIC PAIN 01/04/2012 KELSIE GILLESPIE JENNIFER L V58.69 taking high-risk medication 01/04/2012 JEN LU PHD 338.29 CHRONIC PAIN 01/04/2012 JEN LU PHD V58.69 taking high-risk medication 01/04/2012 KELSIE GILLESPIE JENNIFER L 338.29 CHRONIC PAIN 01/04/2012 JENNIFER IGLESIAS APRN L V58.69 taking high-risk medication 01/04/2012 ROSE DO GIGI K 338.29 CHRONIC PAIN 01/04/2012 ROSE DO GIGI K V58.69 taking high-risk medication 01/04/2012 JEN LU PHD 338.29 CHRONIC PAIN 01/04/2012 JEN LU PHD V58.69 taking high-risk medication 01/04/2012 ROSE DO GIGI K 338.29 CHRONIC PAIN 01/04/2012 GIGI ROSE DO K V58.69 taking high-risk medication 01/04/2012 ALY BENITEZ, JEN Odom 338.29 CHRONIC PAIN 01/04/2012 ALY BENITEZ, JEN Odom V58.69 taking high-risk medication 01/04/2012 ALY BENITEZ, JEN Odom 338.29 CHRONIC PAIN 01/04/2012 BOEANSHUL BENITEZ, JEN Odom V58.69 taking high-risk medication 01/04/2012 GIGI ROSE DO K 338.29 CHRONIC PAIN 01/04/2012 GIGI ROSE DO K V58.69 taking high-risk medication 01/04/2012 ALY BENITEZ, JEN Odom 338.29 CHRONIC PAIN 01/04/2012 ALY BENITEZ, JEN Odom V58.69 taking high-risk medication 01/04/2012 JENNIFER IGLESIAS APRN L 338.29 CHRONIC PAIN 01/04/2012 JENNIFER IGLESIAS APRN V58.69 taking high-risk medication 01/04/2012 ALY BENITEZ, JEN Odom 338.29 CHRONIC PAIN 01/04/2012 ALY BENITEZ, JEN Odom V58.69 taking high-risk medication 01/04/2012 TRAE DPMitzi, GINA 338.29 CHRONIC PAIN 01/04/2012 TRAE DPMitzi, GINA V58.69 taking high-risk medication 01/04/2012 GIGI ROSE DO K 338.29 CHRONIC PAIN 01/04/2012 GIGI ROSE DO K V58.69 taking high-risk medication 01/04/2012 JENNIFER IGLESIAS APRN L 338.29 CHRONIC PAIN 01/04/2012 JENNIFER IGLESIAS APRN L V58.69 taking high-risk medication 01/04/2012 JEN LU PHD 338.29 CHRONIC PAIN 01/04/2012 ALY BENITEZ, JEN Odom V58.69 taking high-risk medication 01/04/2012 GIGI ROSE DO K 338.29 CHRONIC PAIN 01/04/2012 GIGI ROSE DO K V58.69 taking high-risk medication 01/04/2012 ALY BENITEZ, JEN Odom 338.29 CHRONIC PAIN 01/04/2012 ALY BENITEZ, JEN Odom V58.69 taking high-risk medication 01/04/2012 ALY BENITEZ, JEN Odom 338.29 CHRONIC PAIN 01/04/2012 ALY PHD, JEN Odom V58.69 taking high-risk medication 01/19/2012 ALY BENITEZ, JEN Odom V04.81 FLU DX (MEDICARE ONLY) 01/19/2012 V04.81 FLU DX ( MEDICARE ONLY) 01/19/2012 V04.81 FLU DX ( MEDICARE ONLY) 01/19/2012 JENNIFER SANDERSON, JOSEFINA V04.81 FLU DX (MEDICARE ONLY) 01/19/2012 V04.81 FLU DX ( MEDICARE ONLY) 01/19/2012 ALY BENITEZ, JEN Odom V04.81 FLU DX (MEDICARE ONLY) 01/19/2012 JENNIFER SANDERSON, JOSEFINA V04.81 FLU DX (MEDICARE ONLY) 01/19/2012 JENNIFER IGLESIAS APRN V04.81 FLU DX (MEDICARE ONLY) 01/19/2012 V04.81 FLU DX ( MEDICARE ONLY) 01/19/2012 JENNIFER SANDERSON, JOSEFINA V04.81 FLU DX (MEDICARE ONLY) 01/19/2012 JOSEFINA RODRIGUEZ MD V04.81 FLU DX (MEDICARE ONLY) 01/19/2012 V04.81 FLU DX ( MEDICARE ONLY) 01/19/2012 JOSEFINA RODRIGUEZ MD V04.81 FLU DX (MEDICARE ONLY) 01/19/2012 MOSHE BEAULIEU V04.81 FLU DX (MEDICARE ONLY) 01/19/2012 JENNIFER IGLESIAS APRN V04.81 FLU DX (MEDICARE ONLY) 01/19/2012 V04.81 FLU DX ( MEDICARE ONLY) 01/19/2012 V04.81 FLU DX ( MEDICARE ONLY) 01/19/2012 V04.81 FLU DX ( MEDICARE ONLY) 01/19/2012 V04.81 FLU DX ( MEDICARE ONLY) 01/19/2012 V04.81 FLU DX ( MEDICARE ONLY) 01/19/2012 V04.81 FLU DX ( MEDICARE ONLY) 01/19/2012 V04.81 FLU DX ( MEDICARE ONLY) 01/19/2012 V04.81 FLU DX ( MEDICARE ONLY) 01/19/2012 V04.81 FLU DX ( MEDICARE ONLY) 01/19/2012 V04.81 FLU DX ( MEDICARE ONLY) 01/19/2012 V04.81 FLU DX ( MEDICARE ONLY) 01/19/2012 V04.81 FLU DX ( MEDICARE ONLY) 01/19/2012 ROSE DO, GIGI K V04.81 FLU DX (MEDICARE ONLY) 01/19/2012 ALY BENITEZ, JEN A V04.81 FLU DX (MEDICARE ONLY) 01/19/2012 LATASHA GRIJALVA APRN V04.81 FLU DX (MEDICARE ONLY) 01/19/2012 ROSE DO, GGII K V04.81 FLU DX (MEDICARE ONLY) 01/19/2012 ALY BENITEZ, JEN A V04.81 FLU DX (MEDICARE ONLY) 01/19/2012 ROSE DO, GIGI K V04.81 FLU DX (MEDICARE ONLY) 01/19/2012 EATON RN BSN, JENNIFER L V04.81 FLU DX (MEDICARE ONLY) 01/19/2012 ALY BENITEZ, JEN A V04.81 FLU DX (MEDICARE ONLY) 01/19/2012 EATON RN BSN, JENNIFER L V04.81 FLU DX (MEDICARE ONLY) 01/19/2012 ALY BENITEZ, JEN A V04.81 FLU DX (MEDICARE ONLY) 01/19/2012 KELSIE RN BSN, JENNIFER L V04.81 FLU DX (MEDICARE ONLY) 01/19/2012 ALY BENITEZ, JEN A V04.81 FLU DX (MEDICARE ONLY) 01/19/2012 ROSE DO, GIGI K V04.81 FLU DX (MEDICARE ONLY) 01/19/2012 EATON RN BSN, JENNIFER L V04.81 FLU DX (MEDICARE ONLY) 01/19/2012 ALY BENITEZ, JEN A V04.81 FLU DX (MEDICARE ONLY) 01/19/2012 ROSE DO, GIGI K V04.81 FLU DX (MEDICARE ONLY) 01/19/2012 EATON RN BSN, JENNIFER L V04.81 FLU DX (MEDICARE ONLY) 01/19/2012 ALY BENITEZ, JEN A V04.81 FLU DX (MEDICARE ONLY) 01/19/2012 EATON RN BSN, JENNIFER L V04.81 FLU DX (MEDICARE ONLY) 01/19/2012 ALY BENITEZ, JEN A V04.81 FLU DX (MEDICARE ONLY) 01/19/2012 EATON RN BSN, JENNIFER L V04.81 FLU DX (MEDICARE ONLY) 01/19/2012 ROSE DO, GIGI K V04.81 FLU DX (MEDICARE ONLY) 01/19/2012 LAY BENITEZ, JEN A V04.81 FLU DX (MEDICARE ONLY) 01/19/2012 ROSE DO, GIGI K V04.81 FLU DX (MEDICARE ONLY) 01/19/2012 ALY BENITEZ, JEN A V04.81 FLU DX (MEDICARE ONLY) 01/19/2012 ALY BENITEZ, JEN A V04.81 FLU DX (MEDICARE ONLY) 01/19/2012 ROSE DO, GIGI K V04.81 FLU DX (MEDICARE ONLY) 01/19/2012 ALY BENITEZ, JEN A V04.81 FLU DX (MEDICARE ONLY) 01/19/2012 JENNIFER IGLESIAS APRN L V04.81 FLU DX (MEDICARE ONLY) 01/19/2012 ALY BENITEZ, JEN A V04.81 FLU DX (MEDICARE ONLY) 01/19/2012 TRAE OBREGONMGINA V04.81 FLU DX (MEDICARE ONLY) 01/19/2012 ROSE DO, GIGI K V04.81 FLU DX (MEDICARE ONLY) 01/19/2012 JENNIFER IGLESIAS APRN V04.81 FLU DX (MEDICARE ONLY) 01/19/2012 JEN LU PHD A V04.81 FLU DX (MEDICARE ONLY) 01/19/2012 ROSE DO, GIGI K V04.81 FLU DX (MEDICARE ONLY) 01/19/2012 JEN LU PHD A V04.81 FLU DX (MEDICARE ONLY) 01/19/2012 JEN LU PHD A V04.81 FLU DX (MEDICARE ONLY) 03/02/2012 JEN LU PHD 799.21 feeling nervous 03/02/2012 799.21 feeling nervous 03/02/2012 799.21 feeling nervous 03/02/2012 JOSEFINA RODRIGUEZ MD 799.21 feeling nervous 03/02/2012 799.21 feeling nervous 03/02/2012 JEN LU PHD 799.21 feeling nervous 03/02/2012 JOSEFINA RODRIGUEZ MD 799.21 feeling nervous 03/02/2012 JENNIFER IGLESIAS APRN 799.21 feeling nervous 03/02/2012 799.21 feeling nervous 03/02/2012 JOSEFINA RORDIGUEZ MD 799.21 feeling nervous 03/02/2012 JOSEFINA RODRIGUEZ MD 799.21 feeling nervous 03/02/2012 799.21 feeling nervous 03/02/2012 JENNIFER SANDERSON, JOSEFINA 799.21 feeling nervous 03/02/2012 MOSHE BEAULIEU 799.21 feeling nervous 03/02/2012 JENNIFER IGLESIAS APRN 799.21 feeling nervous 03/02/2012 799.21 feeling nervous 03/02/2012 799.21 feeling nervous 03/02/2012 799.21 feeling nervous 03/02/2012 799.21 feeling nervous 03/02/2012 799.21 feeling nervous 03/02/2012 799.21 feeling nervous 03/02/2012 799.21 feeling nervous 03/02/2012 799.21 feeling nervous 03/02/2012 799.21 feeling nervous 03/02/2012 799.21 feeling nervous 03/02/2012 799.21 feeling nervous 03/02/2012 799.21 feeling nervous 03/02/2012 GIGI ROSE DO 799.21 feeling nervous 03/02/2012 ALY BENITEZ, JEN Odom 799.21 feeling nervous 03/02/2012 LATASHA GRIJALVA APRN 799.21 feeling nervous 03/02/2012 GIGI ROSE DO 799.21 feeling nervous 03/02/2012 ALY BENITEZ, JEN A 799.21 feeling nervous 03/02/2012 GIGI ROSE DO 799.21 feeling nervous 03/02/2012 JENNIFER IGLESIAS APRN 799.21 feeling nervous 03/02/2012 ALY BENITEZ, JEN A 799.21 feeling nervous 03/02/2012 JENNIFER IGLESIAS APRN 799.21 feeling nervous 03/02/2012 ALY BENITEZ, JEN A 799.21 feeling nervous 03/02/2012 JENNIFER IGLESIAS APRN 799.21 feeling nervous 03/02/2012 ALY BENITEZ, JEN A 799.21 feeling nervous 03/02/2012 ROSE GIGI HERNANDEZ K 799.21 feeling nervous 03/02/2012 JENNIFER IGLESIAS APRN 799.21 feeling nervous 03/02/2012 ALY BENITEZ, JEN A 799.21 feeling nervous 03/02/2012 ROSE GIGI HERNANDEZ 799.21 feeling nervous 03/02/2012 EATJENNIFER SUTHERLAND APRN 799.21 feeling nervous 03/02/2012 ALY BENITEZ, JEN Odom 799.21 feeling nervous 03/02/2012 JENNIFER IGLESIAS APRN 799.21 feeling nervous 03/02/2012 ALY BENITEZ, JEN Odom 799.21 feeling nervous 03/02/2012 JENNIFER IGLESIAS APRN 799.21 feeling nervous 03/02/2012 ROSE DO, GIGI K 799.21 feeling nervous 03/02/2012 BOEANSHUL BENITEZ, JEN A 799.21 feeling nervous 03/02/2012 ROSE DO, GIGI K 799.21 feeling nervous 03/02/2012 BOEANSHUL BENIETZ, JEN A 799.21 feeling nervous 03/02/2012 BOEANSHUL BENITEZ, JEN Odom 799.21 feeling nervous 03/02/2012 ROSE DO, GIGI K 799.21 feeling nervous 03/02/2012 BOEJEN LANDERS PHD 799.21 feeling nervous 03/02/2012 JENNIFER IGLESIAS APRN 799.21 feeling nervous 03/02/2012 ALY BENITEZ, JEN A 799.21 feeling nervous 03/02/2012 GINA ROBISON DPM 799.21 feeling nervous 03/02/2012 ROSE DO, GIGI K 799.21 feeling nervous 03/02/2012 JENNIFER IGLESIAS APRN 799.21 feeling nervous 03/02/2012 ALY BENITEZ, JEN A 799.21 feeling nervous 03/02/2012 ROSE DO, GIGI K 799.21 feeling nervous 03/02/2012 JEN LU PHD 799.21 feeling nervous 03/02/2012 JEN LU PHD 799.21 feeling nervous 03/28/2012 JEN LU PHD 112.0 CANDIDIASIS ORAL THRUSH 03/28/2012 112.0 CANDIDIASIS ORAL THRUSH 03/28/2012 112.0 CANDIDIASIS ORAL THRUSH 03/28/2012 JOSEFINA RODRIGUEZ MD 112.0 CANDIDIASIS ORAL THRUSH 03/28/2012 112.0 CANDIDIASIS ORAL THRUSH 03/28/2012 JEN LU PHD 112.0 CANDIDIASIS ORAL THRUSH 03/28/2012 JOSEFINA RODRIGUEZ MD 112.0 CANDIDIASIS ORAL THRUSH 03/28/2012 JENNIFER IGLESIAS APRN 112.0 CANDIDIASIS ORAL THRUSH 03/28/2012 112.0 CANDIDIASIS ORAL THRUSH 03/28/2012 JOSEFINA RODRIGUEZ MD 112.0 CANDIDIASIS ORAL THRUSH 03/28/2012 JOSEFINA RODRIGUEZ MD 112.0 CANDIDIASIS ORAL THRUSH 03/28/2012 112.0 CANDIDIASIS ORAL THRUSH 03/28/2012 JOSEFINA RODRIGUEZ MD 112.0 CANDIDIASIS ORAL THRUSH 03/28/2012 MOSHE BEAULIEU 112.0 CANDIDIASIS ORAL THRUSH 03/28/2012 JENNIFER IGLESIAS APRN 112.0 CANDIDIASIS ORAL THRUSH 03/28/2012 112.0 CANDIDIASIS ORAL THRUSH 03/28/2012 112.0 CANDIDIASIS ORAL THRUSH 03/28/2012 112.0 CANDIDIASIS ORAL THRUSH 03/28/2012 112.0 CANDIDIASIS ORAL THRUSH 03/28/2012 112.0 CANDIDIASIS ORAL THRUSH 03/28/2012 112.0 CANDIDIASIS ORAL THRUSH 03/28/2012 112.0 CANDIDIASIS ORAL THRUSH 03/28/2012 112.0 CANDIDIASIS ORAL THRUSH 03/28/2012 112.0 CANDIDIASIS ORAL THRUSH 03/28/2012 112.0 CANDIDIASIS ORAL THRUSH 03/28/2012 112.0 CANDIDIASIS ORAL THRUSH 03/28/2012 112.0 CANDIDIASIS ORAL THRUSH 03/28/2012 DANIEL ROSE DOA K 112.0 CANDIDIASIS ORAL THRUSH 03/28/2012 JEN LU PHD 112.0 CANDIDIASIS ORAL THRUSH 03/28/2012 LATASHA GRIJALVA APRN 112.0 CANDIDIASIS ORAL THRUSH 03/28/2012 ROSE HERNANDEZ GIGI K 112.0 CANDIDIASIS ORAL THRUSH 03/28/2012 JEN LU PHD 112.0 CANDIDIASIS ORAL THRUSH 03/28/2012 ROSE HERNANDEZ GIGI K 112.0 CANDIDIASIS ORAL THRUSH 03/28/2012 JENNIFER GILESIAS APRN 112.0 CANDIDIASIS ORAL THRUSH 03/28/2012 JEN LU PHD 112.0 CANDIDIASIS ORAL THRUSH 03/28/2012 JENNIFER IGLESIAS APRN 112.0 CANDIDIASIS ORAL THRUSH 03/28/2012 JEN LU PHD 112.0 CANDIDIASIS ORAL THRUSH 03/28/2012 JENNIFER IGLESIAS APRN 112.0 CANDIDIASIS ORAL THRUSH 03/28/2012 JEN LU PHD 112.0 CANDIDIASIS ORAL THRUSH 03/28/2012 ROSE DO, GIGI K 112.0 CANDIDIASIS ORAL THRUSH 03/28/2012 EATON RN BSN, JENNIFER L 112.0 CANDIDIASIS ORAL THRUSH 03/28/2012 BOEJEN LANDERS PHD A 112.0 CANDIDIASIS ORAL THRUSH 03/28/2012 ROSE DO, GIGI K 112.0 CANDIDIASIS ORAL THRUSH 03/28/2012 EATON RN BSN, JENNIFER L 112.0 CANDIDIASIS ORAL THRUSH 03/28/2012 BOEANSHUL BENITEZ, JEN A 112.0 CANDIDIASIS ORAL THRUSH 03/28/2012 EATON RN BSN, JENNIFER L 112.0 CANDIDIASIS ORAL THRUSH 03/28/2012 BOEANSHUL BENITEZ, JEN A 112.0 CANDIDIASIS ORAL THRUSH 03/28/2012 EATON RN BSN, JENNIFER L 112.0 CANDIDIASIS ORAL THRUSH 03/28/2012 ROSE DO, GIGI K 112.0 CANDIDIASIS ORAL THRUSH 03/28/2012 JEN LU PHD 112.0 CANDIDIASIS ORAL THRUSH 03/28/2012 ROSE DO, GIGI K 112.0 CANDIDIASIS ORAL THRUSH 03/28/2012 BOEJEN LANDERS PHD 112.0 CANDIDIASIS ORAL THRUSH 03/28/2012 BOEJEN LANDERS PHD 112.0 CANDIDIASIS ORAL THRUSH 03/28/2012 ROSE DO, GIGI K 112.0 CANDIDIASIS ORAL THRUSH 03/28/2012 JEN LU PHD 112.0 CANDIDIASIS ORAL THRUSH 03/28/2012 KELSIE GILLESPIE, JENNIFER L 112.0 CANDIDIASIS ORAL THRUSH 03/28/2012 JEN LU PHD 112.0 CANDIDIASIS ORAL THRUSH 03/28/2012 TRAE GILLETTE, GINA 112.0 CANDIDIASIS ORAL THRUSH 03/28/2012 ROSE DO, GIGI K 112.0 CANDIDIASIS ORAL THRUSH 03/28/2012 EATENA RN BSN, JENNIFER L 112.0 CANDIDIASIS ORAL THRUSH 03/28/2012 BOEJEN LANDERS PHD 112.0 CANDIDIASIS ORAL THRUSH 03/28/2012 ROSE DO, GIGI K 112.0 CANDIDIASIS ORAL THRUSH 03/28/2012 JEN LU PHD 112.0 CANDIDIASIS ORAL THRUSH 03/28/2012 JEN LU PHD 112.0 CANDIDIASIS ORAL THRUSH 04/12/2012 BOEJEN LANDERS PHD 414.00 CAD 04/12/2012 JEN LU PHD A 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 04/12/2012 JOSEFINA RODRIGUEZ MD 414.00 CAD 04/12/2012 JOSEFINA RODRIGUEZ MD 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 04/12/2012 JENNIFER IGLESIAS APRN 414.00 CAD 04/12/2012 JENNIFER IGLESIAS APRN 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 04/12/2012 414.00 CAD 04/12/2012 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 04/12/2012 JOSEFINA RODRIGUEZ MD 414.00 CAD 04/12/2012 JOSEFINA RODRIGUEZ MD 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 04/12/2012 JOSEFINA RODRIGUEZ MD 414.00 CAD 04/12/2012 JOSEFINA RODRIGUEZ MD 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 04/12/2012 414.00 CAD 04/12/2012 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 04/12/2012 JOSEFINA RODRIGUEZ MD 414.00 CAD 04/12/2012 JOSEFINA RODRIGUEZ MD 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 04/12/2012 MOSHE BEAULIEU 414.00 CAD 04/12/2012 MOSHE BEAULIEU 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 04/12/2012 JENNIFER IGLESIAS APRN 414.00 CAD 04/12/2012 JENNIFER IGLESIAS APRN 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 04/12/2012 414.00 CAD 04/12/2012 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 04/12/2012 414.00 CAD 04/12/2012 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 04/12/2012 414.00 CAD 04/12/2012 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 04/12/2012 414.00 CAD 04/12/2012 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 04/12/2012 414.00 CAD 04/12/2012 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 04/12/2012 414.00 CAD 04/12/2012 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 04/12/2012 414.00 CAD 04/12/2012 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 04/12/2012 414.00 CAD 04/12/2012 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 04/12/2012 414.00 CAD 04/12/2012 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 04/12/2012 414.00 CAD 04/12/2012 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 04/12/2012 414.00 CAD 04/12/2012 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 04/12/2012 414.00 CAD 04/12/2012 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 04/12/2012 ROSE DO GIGI K 414.00 CAD 04/12/2012 ORSE DO, GIGI K 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 04/12/2012 JEN LU PHD 414.00 CAD 04/12/2012 JEN LU PHD 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 04/12/2012 VALENTINEPEDRO ALVES APRNA S 414.00 CAD 04/12/2012 LATASHA GRIJALVA APRN S 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 04/12/2012 ROSE , GIGI K 414.00 CAD 04/12/2012 ROSE , GIGI K 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 04/12/2012 JEN LU PHD 414.00 CAD 04/12/2012 JEN LU PHD 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 04/12/2012 ROSE DANIEL HERNANDEZA K 414.00 CAD 04/12/2012 ROSE DO, GIGI K 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 04/12/2012 JENNIFER IGLESIAS APRN L 414.00 CORONARY ARTERY DISEASE 04/12/2012 JENNIFER IGLESIAS APRN L 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 04/12/2012 JEN LU PHD 414.00 CORONARY ARTERY DISEASE 04/12/2012 EJN LU PHD 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 04/12/2012 JENNIFER IGLESIAS APRN L 414.00 CORONARY ARTERY DISEASE 04/12/2012 JENNIFER IGLESIAS APRN L 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 04/12/2012 JEN LU PHD 414.00 CORONARY ARTERY DISEASE 04/12/2012 JEN LU PHD 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 04/12/2012 JENNIFER IGLESIAS APRN L 414.00 CORONARY ARTERY DISEASE 04/12/2012 JENNIFER IGLESIAS APRN L 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 04/12/2012 JEN LU PHD 414.00 CORONARY ARTERY DISEASE 04/12/2012 ALY BENITEZ, JEN Odom 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 04/12/2012 ROSE DO, GIGI K 414.00 CORONARY ARTERY DISEASE 04/12/2012 ROSE DO, GIGI K 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 04/12/2012 KELSIE GILLESPIE JENNIFER L 414.00 CORONARY ARTERY DISEASE 04/12/2012 JENNIFER IGLESIAS APRN L 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 04/12/2012 JEN LU PHD A 414.00 CORONARY ARTERY DISEASE 04/12/2012 ALY BENITEZ, JEN Odom 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 04/12/2012 ROSE DO, GIGI K 414.00 CORONARY ARTERY DISEASE 04/12/2012 ROSE DO, GIGI K 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 04/12/2012 JENNIFER IGLESIAS APRN L 414.00 CORONARY ARTERY DISEASE 04/12/2012 JENNIFER IGLESIAS APRN L 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 04/12/2012 JEN LU PHD 414.00 CORONARY ARTERY DISEASE 04/12/2012 JEN LU PHD 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 04/12/2012 JENNIFER IGLESIAS APRN L 414.00 CORONARY ARTERY DISEASE 04/12/2012 JENNIFER IGLESIAS APRN L 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 04/12/2012 JEN LU PHD 414.00 CORONARY ARTERY DISEASE 04/12/2012 JEN LU PHD 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 04/12/2012 JENNIFER IGLESIAS APRN L 414.00 CORONARY ARTERY DISEASE 04/12/2012 JENNIFER IGLESIAS APRN L 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 04/12/2012 ROSE DO GIGI K 414.00 CORONARY ARTERY DISEASE 04/12/2012 DANIEL ROSE DOA K 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 04/12/2012 JEN LU PHD 414.00 CORONARY ARTERY DISEASE 04/12/2012 JEN LU PHD 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 04/12/2012 ROSE DO, GIGI K 414.00 CORONARY ARTERY DISEASE 04/12/2012 ROSE DO, GIGI K 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 04/12/2012 BOEKHOUT PHD, JEN A 414.00 CORONARY ARTERY DISEASE 04/12/2012 ALY BENITEZ, JEN A 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 04/12/2012 ALY BENITEZ, JEN Odom 414.00 CORONARY ARTERY DISEASE 04/12/2012 JEN LU PHD 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 04/12/2012 ROSE DODANIELA K 414.00 CORONARY ARTERY DISEASE 04/12/2012 ROSE DO, GIGI K 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 04/12/2012 JEN LU PHD 414.00 CORONARY ARTERY DISEASE 04/12/2012 JEN LU PHD 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 04/12/2012 JENNIFER IGLESIAS APRN L 414.00 CORONARY ARTERY DISEASE 04/12/2012 JENNIFER IGLESIAS APRN L 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 04/12/2012 JEN LU PHD 414.00 CORONARY ARTERY DISEASE 04/12/2012 JEN LU PHD 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 04/12/2012 TRAE DPM, GINA 414.00 CORONARY ARTERY DISEASE 04/12/2012 TRAE DPMitzi, GINA 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 04/12/2012 ROSE DO GIGI K 414.00 CORONARY ARTERY DISEASE 04/12/2012 ROSE DODANIELA K 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 04/12/2012 BOBENA GILLESPIE JENNIFER L 414.00 CORONARY ARTERY DISEASE 04/12/2012 JENNIFER IGLESIAS APRN L 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 04/12/2012 JEN LU PHD 414.00 CORONARY ARTERY DISEASE 04/12/2012 JEN LU PHD 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 04/12/2012 ROSE DODANIELA K 414.00 CORONARY ARTERY DISEASE 04/12/2012 ROSE DODANIELA K 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 04/12/2012 JEN LU PHD 414.00 CORONARY ARTERY DISEASE 04/12/2012 JEN LU PHD 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 04/12/2012 JEN LU PHD 414.00 CORONARY ARTERY DISEASE 04/12/2012 JEN LU PHD 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 05/12/2012 465.9 UPPER RESPIRATORY INFECTION 05/12/2012 ALY PHD, JNE A 465.9 UPPER RESPIRATORY INFECTION 05/12/2012 JENNIFER SANDERSON, JOSEFINA 465.9 UPPER RESPIRATORY INFECTION 05/12/2012 JENNIFER IGLESIAS APRN L 465.9 UPPER RESPIRATORY INFECTION 05/12/2012 465.9 UPPER RESPIRATORY INFECTION 05/12/2012 JENNIFER SANDERSON, JOSEFINA 465.9 UPPER RESPIRATORY INFECTION 05/12/2012 JENNIFER SANDERSON, JOSEFINA 465.9 UPPER RESPIRATORY INFECTION 05/12/2012 465.9 UPPER RESPIRATORY INFECTION 05/12/2012 JENNIFER SANDERSON, JOSEFINA 465.9 UPPER RESPIRATORY INFECTION 05/12/2012 MOSHE BEAULIEU 465.9 UPPER RESPIRATORY INFECTION 05/12/2012 JENNIFER IGLESIAS APRN L 465.9 UPPER RESPIRATORY INFECTION 05/12/2012 465.9 UPPER RESPIRATORY INFECTION 05/12/2012 465.9 UPPER RESPIRATORY INFECTION 05/12/2012 465.9 UPPER RESPIRATORY INFECTION 05/12/2012 465.9 UPPER RESPIRATORY INFECTION 05/12/2012 465.9 UPPER RESPIRATORY INFECTION 05/12/2012 465.9 UPPER RESPIRATORY INFECTION 05/12/2012 465.9 UPPER RESPIRATORY INFECTION 05/12/2012 465.9 UPPER RESPIRATORY INFECTION 05/12/2012 465.9 UPPER RESPIRATORY INFECTION 05/12/2012 465.9 UPPER RESPIRATORY INFECTION 05/12/2012 465.9 UPPER RESPIRATORY INFECTION 05/12/2012 465.9 UPPER RESPIRATORY INFECTION 05/12/2012 ROSE DODANIELA K 465.9 UPPER RESPIRATORY INFECTION 05/12/2012 ALY PHD, JEN A 465.9 UPPER RESPIRATORY INFECTION 05/12/2012 LATASHA GRIJALVA APRN 465.9 UPPER RESPIRATORY INFECTION 05/12/2012 ROSE DODANIELA K 465.9 UPPER RESPIRATORY INFECTION 05/12/2012 ALY PHD, JEN A 465.9 UPPER RESPIRATORY INFECTION 05/12/2012 ROSE DO GIGI K 465.9 UPPER RESPIRATORY INFECTION 05/12/2012 YINKA IGLESIAS APRNSON L 465.9 UPPER RESPIRATORY INFECTION 05/12/2012 ALY PHD, JEN A 465.9 UPPER RESPIRATORY INFECTION 05/12/2012 KELSIE GILLESPIE, JENNIFER L 465.9 UPPER RESPIRATORY INFECTION 05/12/2012 ALY BENITEZ, JEN A 465.9 UPPER RESPIRATORY INFECTION 05/12/2012 YINKA IGLESIAS APRNSON L 465.9 UPPER RESPIRATORY INFECTION 05/12/2012 BOEKHOUT PHD, JEN A 465.9 UPPER RESPIRATORY INFECTION 05/12/2012 ROSE DO, GIGI K 465.9 UPPER RESPIRATORY INFECTION 05/12/2012 EATON RN BSN, JENNIFER L 465.9 UPPER RESPIRATORY INFECTION 05/12/2012 BOEKHOUT PHD, JEN A 465.9 UPPER RESPIRATORY INFECTION 05/12/2012 ROSE DO, GIGI K 465.9 UPPER RESPIRATORY INFECTION 05/12/2012 EATON RN BSN, JENNIFER L 465.9 UPPER RESPIRATORY INFECTION 05/12/2012 BOEKHOUT PHD, JEN A 465.9 UPPER RESPIRATORY INFECTION 05/12/2012 EATON RN BSN, JENNIFER L 465.9 UPPER RESPIRATORY INFECTION 05/12/2012 BOEKHOUT PHD, JEN A 465.9 UPPER RESPIRATORY INFECTION 05/12/2012 EATON RN BSN, JENNIFER L 465.9 UPPER RESPIRATORY INFECTION 05/12/2012 ROSE DO, GIGI K 465.9 UPPER RESPIRATORY INFECTION 05/12/2012 BOEOUT PHD, JEN A 465.9 UPPER RESPIRATORY INFECTION 05/12/2012 ROSE DO, GIGI K 465.9 UPPER RESPIRATORY INFECTION 05/12/2012 BOEOUT PHD, JEN A 465.9 UPPER RESPIRATORY INFECTION 05/12/2012 BOEOUT PHD, JEN A 465.9 UPPER RESPIRATORY INFECTION 05/12/2012 ROSE DO, GIGI K 465.9 UPPER RESPIRATORY INFECTION 05/12/2012 BOEKHOUT PHD, JEN A 465.9 UPPER RESPIRATORY INFECTION 05/12/2012 EATON RN BSN, JENNIFER L 465.9 UPPER RESPIRATORY INFECTION 05/12/2012 BOEOUT PHD, JEN A 465.9 UPPER RESPIRATORY INFECTION 05/12/2012 TRAE DPM, GINA 465.9 UPPER RESPIRATORY INFECTION 05/12/2012 ROSE DO, GIGI K 465.9 UPPER RESPIRATORY INFECTION 05/12/2012 EATON RN BSN, JENNIFER L 465.9 UPPER RESPIRATORY INFECTION 05/12/2012 BOEOUT PHD, JEN A 465.9 UPPER RESPIRATORY INFECTION 05/12/2012 ROSE DO, GIGI K 465.9 UPPER RESPIRATORY INFECTION 05/12/2012 BOEKHOUT PHD, JEN A 465.9 UPPER RESPIRATORY INFECTION 05/12/2012 BOEOUT PHD, JEN A 465.9 UPPER RESPIRATORY INFECTION 05/25/2012 JENNIFER SANDERSON, JOSEFINA 530.11 ESOPHAGITIS CHRONIC REFLUX 05/25/2012 JOSEFINA RODRIGUEZ MD 719.45 joint pain in the left hip 05/25/2012 JENNIFER IGLESIAS APRN 530.11 ESOPHAGITIS CHRONIC REFLUX 05/25/2012 JENNIFER IGLESIAS APRN 719.45 joint pain in the left hip 05/25/2012 530.11 ESOPHAGITIS CHRONIC REFLUX 05/25/2012 719.45 joint pain in the left hip 05/25/2012 JOSEFINA RODRIGUEZ MD 530.11 ESOPHAGITIS CHRONIC REFLUX 05/25/2012 JOSEFINA RODRIGUEZ MD 719.45 joint pain in the left hip 05/25/2012 JOSEFINA RODRIGUEZ MD 530.11 ESOPHAGITIS CHRONIC REFLUX 05/25/2012 JOSEFINA RODRIGUEZ MD 719.45 joint pain in the left hip 05/25/2012 530.11 ESOPHAGITIS CHRONIC REFLUX 05/25/2012 719.45 joint pain in the left hip 05/25/2012 JOSEFINA RODRIGUEZ MD 530.11 ESOPHAGITIS CHRONIC REFLUX 05/25/2012 JOSEFINA RODRIGUEZ MD 719.45 joint pain in the left hip 05/25/2012 MOSHE BEAULIEU 530.11 ESOPHAGITIS CHRONIC REFLUX 05/25/2012 MOSHE BEAULIEU 719.45 joint pain in the left hip 05/25/2012 JENNIFER IGLESIAS APRN 530.11 ESOPHAGITIS CHRONIC REFLUX 05/25/2012 JENNIFER IGLESIAS APRN 719.45 joint pain in the left hip 05/25/2012 530.11 ESOPHAGITIS CHRONIC REFLUX 05/25/2012 719.45 joint pain in the left hip 05/25/2012 530.11 ESOPHAGITIS CHRONIC REFLUX 05/25/2012 719.45 joint pain in the left hip 05/25/2012 530.11 ESOPHAGITIS CHRONIC REFLUX 05/25/2012 719.45 joint pain in the left hip 05/25/2012 530.11 ESOPHAGITIS CHRONIC REFLUX 05/25/2012 719.45 joint pain in the left hip 05/25/2012 530.11 ESOPHAGITIS CHRONIC REFLUX 05/25/2012 719.45 joint pain in the left hip 05/25/2012 530.11 ESOPHAGITIS CHRONIC REFLUX 05/25/2012 719.45 joint pain in the left hip 05/25/2012 530.11 ESOPHAGITIS CHRONIC REFLUX 05/25/2012 719.45 joint pain in the left hip 05/25/2012 530.11 ESOPHAGITIS CHRONIC REFLUX 05/25/2012 719.45 joint pain in the left hip 05/25/2012 530.11 ESOPHAGITIS CHRONIC REFLUX 05/25/2012 719.45 joint pain in the left hip 05/25/2012 530.11 ESOPHAGITIS CHRONIC REFLUX 05/25/2012 719.45 joint pain in the left hip 05/25/2012 530.11 ESOPHAGITIS CHRONIC REFLUX 05/25/2012 719.45 joint pain in the left hip 05/25/2012 530.11 ESOPHAGITIS CHRONIC REFLUX 05/25/2012 719.45 joint pain in the left hip 05/25/2012 ROSE DO GIGI K 530.11 ESOPHAGITIS CHRONIC REFLUX 05/25/2012 ROSE DO GIGI K 719.45 joint pain in the left hip 05/25/2012 ALY PHD, JEN Odom 530.11 ESOPHAGITIS CHRONIC REFLUX 05/25/2012 ALY BENITEZ, JEN Odom 719.45 joint pain in the left hip 05/25/2012 PEDRO GRIJALVA APRNA S 530.11 ESOPHAGITIS CHRONIC REFLUX 05/25/2012 VALENTINE GILLESPIE LATASHA S 719.45 joint pain in the left hip 05/25/2012 ROSE DO GIGI K 530.11 ESOPHAGITIS CHRONIC REFLUX 05/25/2012 ROSE DO GIGI K 719.45 joint pain in the left hip 05/25/2012 ALY BENITEZ, JEN A 530.11 ESOPHAGITIS CHRONIC REFLUX 05/25/2012 ALY BENITEZ, JEN Odom 719.45 joint pain in the left hip 05/25/2012 ROSE DO GIGI K 530.11 ESOPHAGITIS CHRONIC REFLUX 05/25/2012 ROSE HERNANDEZ GIGI K 719.45 joint pain in the left hip 05/25/2012 JENNIFER IGLESIAS APRN L 530.11 ESOPHAGITIS CHRONIC REFLUX 05/25/2012 JENNIFER IGLESIAS APRN 719.45 joint pain in the left hip 05/25/2012 ALY BENITEZ, JEN A 530.11 ESOPHAGITIS CHRONIC REFLUX 05/25/2012 ALY BENITEZ, JEN Odom 719.45 joint pain in the left hip 05/25/2012 JENNIFER IGLESIAS APRN L 530.11 ESOPHAGITIS CHRONIC REFLUX 05/25/2012 EATON RN BSN, JENNIFER L 719.45 joint pain in the left hip 05/25/2012 ALY PHD, JEN A 530.11 ESOPHAGITIS CHRONIC REFLUX 05/25/2012 [facility] PHD, JEN A 719.45 joint pain in the left hip 05/25/2012 EATON RN BSN, JENNIFER L 530.11 ESOPHAGITIS CHRONIC REFLUX 05/25/2012 EATON RN BSN, JENNIFER L 719.45 joint pain in the left hip 05/25/2012 [facility] A 530.11 ESOPHAGITIS CHRONIC REFLUX 05/25/2012 [facility] PHD, JEN A 719.45 joint pain in the left hip 05/25/2012 ROSE DO, GIGI K 530.11 ESOPHAGITIS CHRONIC REFLUX 05/25/2012 ROSE DO, GIGI K 719.45 joint pain in the left hip 05/25/2012 EATON RN BSN, JENNIFER L 530.11 ESOPHAGITIS CHRONIC REFLUX 05/25/2012 EATON RN BSN, JENNIFER L 719.45 joint pain in the left hip 05/25/2012 ALY PHD, JEN A 530.11 ESOPHAGITIS CHRONIC REFLUX 05/25/2012 [facility] PHD, JEN A 719.45 joint pain in the left hip 05/25/2012 ROSE DO, GIGI K 530.11 ESOPHAGITIS CHRONIC REFLUX 05/25/2012 ROSE DO, GIGI K 719.45 joint pain in the left hip 05/25/2012 EATON RN BSN, JENNIFER L 530.11 ESOPHAGITIS CHRONIC REFLUX 05/25/2012 EATON RN BSN, JENNIFER L 719.45 joint pain in the left hip 05/25/2012 ALY PHD, JEN A 530.11 ESOPHAGITIS CHRONIC REFLUX 05/25/2012 [facility], JEN A 719.45 joint pain in the left hip 05/25/2012 EATON RN BSN, JENNIFER L 530.11 ESOPHAGITIS CHRONIC REFLUX 05/25/2012 EATON RN BSN, JENNIFER L 719.45 joint pain in the left hip 05/25/2012 [facility] JEN A 530.11 ESOPHAGITIS CHRONIC REFLUX 05/25/2012 ALY PHD, JEN A 719.45 joint pain in the left hip 05/25/2012 EATON RN BSN, JENNIFER L 530.11 ESOPHAGITIS CHRONIC REFLUX 05/25/2012 JENNIFER IGLESIAS APRN 719.45 joint pain in the left hip 05/25/2012 ROSE DO, GIGI K 530.11 ESOPHAGITIS CHRONIC REFLUX 05/25/2012 ROSE DO, GIGI K 719.45 joint pain in the left hip 05/25/2012 [facility] PHD, JEN A 530.11 ESOPHAGITIS CHRONIC REFLUX 05/25/2012 [facility] PHD, JEN A 719.45 joint pain in the left hip 05/25/2012 ROSE DO, GIGI K 530.11 ESOPHAGITIS CHRONIC REFLUX 05/25/2012 ROSE DO, GIGI K 719.45 joint pain in the left hip 05/25/2012 [facility] PHD, JEN A 530.11 ESOPHAGITIS CHRONIC REFLUX 05/25/2012 [facility] PHD, JEN A 719.45 joint pain in the left hip 05/25/2012 [facility] PHD, JEN A 530.11 ESOPHAGITIS CHRONIC REFLUX 05/25/2012 [facility] PHD, JEN A 719.45 joint pain in the left hip 05/25/2012 ROSE DO, GIGI K 530.11 ESOPHAGITIS CHRONIC REFLUX 05/25/2012 ROSE DO, GIGI K 719.45 joint pain in the left hip 05/25/2012 [facility] PHD, JEN A 530.11 ESOPHAGITIS CHRONIC REFLUX 05/25/2012 [facility] PHD, JEN A 719.45 joint pain in the left hip 05/25/2012 JENNIFER IGLESIAS APRN L 530.11 ESOPHAGITIS CHRONIC REFLUX 05/25/2012 JENNIFER IGLESIAS APRN 719.45 joint pain in the left hip 05/25/2012 [facility] PHD, JEN A 530.11 ESOPHAGITIS CHRONIC REFLUX 05/25/2012 [facility] PHD, JEN A 719.45 joint pain in the left hip 05/25/2012 TRAE DPM, GINA 530.11 ESOPHAGITIS CHRONIC REFLUX 05/25/2012 TRAE DPM, GINA 719.45 joint pain in the left hip 05/25/2012 ROSE DO, GIGI K 530.11 ESOPHAGITIS CHRONIC REFLUX 05/25/2012 ROSE DO, GIGI K 719.45 joint pain in the left hip 05/25/2012 EATON RN BSNYINKA MilesSON L 530.11 ESOPHAGITIS CHRONIC REFLUX 05/25/2012 JENNIFER IGLESIAS APRN 719.45 joint pain in the left hip 05/25/2012 ALY PHD, JEN A 530.11 ESOPHAGITIS CHRONIC REFLUX 05/25/2012 ALY PHD, JEN A 719.45 joint pain in the left hip 05/25/2012 GIGI ROSE DO K 530.11 ESOPHAGITIS CHRONIC REFLUX 05/25/2012 ROSE DO, GIGI K 719.45 joint pain in the left hip 05/25/2012 ALY PHD, JEN A 530.11 ESOPHAGITIS CHRONIC REFLUX 05/25/2012 [facility] PHD, JEN A 719.45 joint pain in the left hip 05/25/2012 ALY PHD, JEN A 530.11 ESOPHAGITIS CHRONIC REFLUX 05/25/2012 ALY PHD, JEN A 719.45 joint pain in the left hip 06/22/2012 JOSEFINA RODRIGUEZ MD 787.02 nausea 06/22/2012 JOSEFINA RODRIGUEZ MD 787.02 nausea 06/22/2012 787.02 nausea 06/22/2012 JOSEFINA RODRIGUEZ MD 787.02 nausea 06/22/2012 MOSHE BEAULIEU 787.02 nausea 06/22/2012 JENNIFER IGLESIAS APRN 787.02 nausea 06/22/2012 787.02 nausea 06/22/2012 787.02 nausea 06/22/2012 787.02 nausea 06/22/2012 787.02 nausea 06/22/2012 787.02 nausea 06/22/2012 787.02 nausea 06/22/2012 787.02 nausea 06/22/2012 787.02 nausea 06/22/2012 787.02 nausea 06/22/2012 787.02 nausea 06/22/2012 787.02 nausea 06/22/2012 787.02 nausea 06/22/2012 GIGI ROSE DO 787.02 nausea 06/22/2012 JEN LU PHD 787.02 nausea 06/22/2012 LATASHA GRIJALVA APRN 787.02 nausea 06/22/2012 GIGI ROSE DO 787.02 nausea 06/22/2012 JEN LU PHD 787.02 nausea 06/22/2012 GIGI ROSE DO 787.02 nausea 06/22/2012 YINKA IGLESIAS APRNSON L 787.02 nausea 06/22/2012 [facility] PHD, JEN A 787.02 nausea 06/22/2012 EATON RN BSN, JENNIFER L 787.02 nausea 06/22/2012 [facility] PHD, JEN A 787.02 nausea 06/22/2012 EATON RN BSN, JENNIFER L 787.02 nausea 06/22/2012 [facility] PHD, JEN A 787.02 nausea 06/22/2012 ROSE DO, GIGI K 787.02 nausea 06/22/2012 EATON RN BSN, JENNIFER L 787.02 nausea 06/22/2012 [facility] PHD, JEN A 787.02 nausea 06/22/2012 ROSE DO, GIGI K 787.02 nausea 06/22/2012 EATON RN BSN, JENNIFER L 787.02 nausea 06/22/2012 [facility] PHD, JEN A 787.02 nausea 06/22/2012 EATON RN BSN, JENNIFER L 787.02 NAUSEA 06/22/2012 [facility] PHD, JEN A 787.02 NAUSEA 06/22/2012 EATON RN BSN, JENNIFER L 787.02 NAUSEA 06/22/2012 ROSE DO, GIGI K 787.02 NAUSEA 06/22/2012 [facility] PHD, JEN A 787.02 NAUSEA 06/22/2012 ROSE DO, GIGI K 787.02 NAUSEA 06/22/2012 [facility] PHD, JEN A 787.02 NAUSEA 06/22/2012 [facility] PHD, JEN A 787.02 NAUSEA 06/22/2012 ROSE DO, GIGI K 787.02 NAUSEA 06/22/2012 [facility] PHD, JEN A 787.02 NAUSEA 06/22/2012 EATON RN BSN, JENNIFER L 787.02 NAUSEA 06/22/2012 [facility] PHD, JEN A 787.02 NAUSEA 06/22/2012 TRAE DPGINA Cartagena 787.02 NAUSEA 06/22/2012 ROSE DO, GIGI K 787.02 NAUSEA 06/22/2012 EATON RN BSN, JENNIFER L 787.02 NAUSEA 06/22/2012 [facility] PHD, JEN A 787.02 NAUSEA 06/22/2012 ROSE DO, GIGI K 787.02 NAUSEA 06/22/2012 ALY BENITEZ, JEN Odom 787.02 NAUSEA 06/22/2012 ALY BENITEZ, JEN Odom 787.02 NAUSEA 08/09/2012 JENNIFER IGLESIAS APRN 034.0 PHARYNGITIS STREPTOCOCCUS, GROUP A: BETA HEMOLYTIC 08/09/2012 034.0 PHARYNGITIS STREPTOCOCCUS, GROUP A: BETA HEMOLYTIC 08/09/2012 034.0 PHARYNGITIS STREPTOCOCCUS, GROUP A: BETA HEMOLYTIC 08/09/2012 034.0 PHARYNGITIS STREPTOCOCCUS, GROUP A: BETA HEMOLYTIC 08/09/2012 034.0 PHARYNGITIS STREPTOCOCCUS, GROUP A: BETA HEMOLYTIC 08/09/2012 034.0 PHARYNGITIS STREPTOCOCCUS, GROUP A: BETA HEMOLYTIC 08/09/2012 034.0 PHARYNGITIS STREPTOCOCCUS, GROUP A: BETA HEMOLYTIC 08/09/2012 034.0 PHARYNGITIS STREPTOCOCCUS, GROUP A: BETA HEMOLYTIC 08/09/2012 034.0 PHARYNGITIS STREPTOCOCCUS, GROUP A: BETA HEMOLYTIC 08/09/2012 034.0 PHARYNGITIS STREPTOCOCCUS, GROUP A: BETA HEMOLYTIC 08/09/2012 034.0 PHARYNGITIS STREPTOCOCCUS, GROUP A: BETA HEMOLYTIC 08/09/2012 034.0 PHARYNGITIS STREPTOCOCCUS, GROUP A: BETA HEMOLYTIC 08/09/2012 034.0 PHARYNGITIS STREPTOCOCCUS, GROUP A: BETA HEMOLYTIC 08/09/2012 GIGI ROSE DO 034.0 PHARYNGITIS STREPTOCOCCUS, GROUP A: BETA HEMOLYTIC 08/09/2012 ALY BENITEZ, JEN Odom 034.0 PHARYNGITIS STREPTOCOCCUS, GROUP A: BETA HEMOLYTIC 08/09/2012 LATASHA GRIJALVA APRN 034.0 PHARYNGITIS STREPTOCOCCUS, GROUP A: BETA HEMOLYTIC 08/09/2012 GIGI ROSE DO 034.0 PHARYNGITIS STREPTOCOCCUS, GROUP A: BETA HEMOLYTIC 08/09/2012 ALY BENITEZ, JEN Odom 034.0 PHARYNGITIS STREPTOCOCCUS, GROUP A: BETA HEMOLYTIC 08/09/2012 GIGI ROSE DO 034.0 PHARYNGITIS STREPTOCOCCUS, GROUP A: BETA HEMOLYTIC 08/09/2012 JENNIFER IGLESIAS APRN 034.0 PHARYNGITIS STREPTOCOCCUS, GROUP A: BETA HEMOLYTIC 08/09/2012 ALY BENITEZ, JEN Odom 034.0 PHARYNGITIS STREPTOCOCCUS, GROUP A: BETA HEMOLYTIC 08/09/2012 KELSIE GILLESPIE, JENNIFER L 034.0 PHARYNGITIS STREPTOCOCCUS, GROUP A: BETA HEMOLYTIC 08/09/2012 ALY BENITEZ, JEN A 034.0 PHARYNGITIS STREPTOCOCCUS, GROUP A: BETA HEMOLYTIC 08/09/2012 KELSIE GILLESPIE, JENNIFER L 034.0 PHARYNGITIS STREPTOCOCCUS, GROUP A: BETA HEMOLYTIC 08/09/2012 ALY BENITEZ, JEN A 034.0 PHARYNGITIS STREPTOCOCCUS, GROUP A: BETA HEMOLYTIC 08/09/2012 ROSE DO, GIGI K 034.0 PHARYNGITIS STREPTOCOCCUS, GROUP A: BETA HEMOLYTIC 08/09/2012 KELSIE GILLESPIE, JENNIFER L 034.0 PHARYNGITIS STREPTOCOCCUS, GROUP A: BETA HEMOLYTIC 08/09/2012 ALY BENITEZ, JEN A 034.0 PHARYNGITIS STREPTOCOCCUS, GROUP A: BETA HEMOLYTIC 08/09/2012 ROSE DO, GIGI K 034.0 PHARYNGITIS STREPTOCOCCUS, GROUP A: BETA HEMOLYTIC 08/09/2012 YINKA IGLESIAS APRNSON L 034.0 PHARYNGITIS STREPTOCOCCUS, GROUP A: BETA HEMOLYTIC 08/09/2012 ALY BENITEZ, JEN A 034.0 PHARYNGITIS STREPTOCOCCUS, GROUP A: BETA HEMOLYTIC 08/09/2012 YINKA IGLESIAS APRNSON L 034.0 PHARYNGITIS STREPTOCOCCUS, GROUP A: BETA HEMOLYTIC 08/09/2012 ALY BENITEZ, JEN A 034.0 PHARYNGITIS STREPTOCOCCUS, GROUP A: BETA HEMOLYTIC 08/09/2012 YINKA IGLESIAS APRNSON L 034.0 PHARYNGITIS STREPTOCOCCUS, GROUP A: BETA HEMOLYTIC 08/09/2012 ROSE DO, GIGI K 034.0 PHARYNGITIS STREPTOCOCCUS, GROUP A: BETA HEMOLYTIC 08/09/2012 ALY PHD, JEN A 034.0 PHARYNGITIS STREPTOCOCCUS, GROUP A: BETA HEMOLYTIC 08/09/2012 ROSE DO, GIGI K 034.0 PHARYNGITIS STREPTOCOCCUS, GROUP A: BETA HEMOLYTIC 08/09/2012 ALY PHD, JEN A 034.0 PHARYNGITIS STREPTOCOCCUS, GROUP A: BETA HEMOLYTIC 08/09/2012 ALY PHD, JEN A 034.0 PHARYNGITIS STREPTOCOCCUS, GROUP A: BETA HEMOLYTIC 08/09/2012 ROSE DO, GIGI K 034.0 PHARYNGITIS STREPTOCOCCUS, GROUP A: BETA HEMOLYTIC 08/09/2012 ALY BENITEZ, JEN A 034.0 PHARYNGITIS STREPTOCOCCUS, GROUP A: BETA HEMOLYTIC 08/09/2012 JENNIFER IGLESIAS APRN 034.0 PHARYNGITIS STREPTOCOCCUS, GROUP A: BETA HEMOLYTIC 08/09/2012 ALY BENITEZ, JEN A 034.0 PHARYNGITIS STREPTOCOCCUS, GROUP A: BETA HEMOLYTIC 08/09/2012 TRAE DPM, GINA 034.0 PHARYNGITIS STREPTOCOCCUS, GROUP A: BETA HEMOLYTIC 08/09/2012 ROSE DOGIGI K 034.0 PHARYNGITIS STREPTOCOCCUS, GROUP A: BETA HEMOLYTIC 08/09/2012 JENNIFER IGLESIAS APRN 034.0 PHARYNGITIS STREPTOCOCCUS, GROUP A: BETA HEMOLYTIC 08/09/2012 ALY BENITEZ, JEN A 034.0 PHARYNGITIS STREPTOCOCCUS, GROUP A: BETA HEMOLYTIC 08/09/2012 GIGI ROSE DO K 034.0 PHARYNGITIS STREPTOCOCCUS, GROUP A: BETA HEMOLYTIC 08/09/2012 ALY BENITEZ, JEN A 034.0 PHARYNGITIS STREPTOCOCCUS, GROUP A: BETA HEMOLYTIC 08/09/2012 ALY BENITEZ, JEN A 034.0 PHARYNGITIS STREPTOCOCCUS, GROUP A: BETA HEMOLYTIC 08/24/2012 Ot 034.0 STREP SORE THROAT 08/24/2012 Ot 250.62 DIAB W NEURO MANIFEST, TYPE II OR UNSPEC 08/24/2012 Ot 272.4 HYPERLIPIDEMIA NEC/NOS 08/24/2012 Ot 300.00 ANXIETY STATE NOS 08/24/2012 Ot 305.1 TOBACCO USE DISORDER 08/24/2012 Ot 311 DEPRESSIVE DISORDER NEC 08/24/2012 Ot 345.90 EPILEPSY UNSPEC W/O MENTION INTRACTABLE 08/24/2012 Ot 357.2 NEUROPATHY IN DIABETES 08/24/2012 Ot 401.9 HYPERTENSION NOS 08/24/2012 Ot 414.01 CORONARY ATHEROSCLEROSIS OF [place] CORON 08/24/2012 Ot 492.8 EMPHYSEMA NEC 08/24/2012 Ot 493.90 ASTHMA, UNSPECIFIED 08/24/2012 Ot 530.81 ESOPHAGEAL REFLUX 08/24/2012 Ot 733.00 OSTEOPOROSIS NOS 08/24/2012 Ot 786.59 CHEST PAIN NEC 08/24/2012 Ot V12.54 PERSONAL HX OF TIA, CEREBRAL INFARCTION 09/04/2012 V06.1 TDAP DX 09/04/2012 V06.1 TDAP DX 09/04/2012 V06.1 TDAP DX 09/04/2012 V06.1 TDAP DX 09/04/2012 V06.1 TDAP DX 09/04/2012 V06.1 TDAP DX 09/04/2012 V06.1 TDAP DX 09/04/2012 V06.1 TDAP DX 09/04/2012 V06.1 TDAP DX 09/04/2012 V06.1 TDAP DX 09/04/2012 ROSE DO, GIGI K V06.1 TDAP DX 09/04/2012 ALY PHD, JEN A V06.1 TDAP DX 09/04/2012 VALENTINE RN BSN, LATASHA S V06.1 TDAP DX 09/04/2012 ROSE DO, GIGI K V06.1 TDAP DX 09/04/2012 ALY PHD, JEN A V06.1 TDAP DX 09/04/2012 ROSE DO, GIGI K V06.1 TDAP DX 09/04/2012 EATON RN BSN, JENNIFER L V06.1 TDAP DX 09/04/2012 ALY PHD, JEN A V06.1 TDAP DX 09/04/2012 EATON RN BSN, JENNIFER L V06.1 TDAP DX 09/04/2012 ALY PHD, JEN A V06.1 TDAP DX 09/04/2012 EATON RN BSN, JENNIFER L V06.1 TDAP DX 09/04/2012 ALY PHD, JEN A V06.1 TDAP DX 09/04/2012 ROSE DO, GIGI K V06.1 TDAP DX 09/04/2012 EATON RN BSN, JENNIFER L V06.1 TDAP DX 09/04/2012 ALY PHD, JEN A V06.1 TDAP DX 09/04/2012 ROSE DO, GIGI K V06.1 TDAP DX 09/04/2012 EATON RN BSN, JENNIFER L V06.1 TDAP DX 09/04/2012 ALY PHD, JEN A V06.1 TDAP DX 09/04/2012 EATON RN BSN, JENNIFER L V06.1 TDAP DX 09/04/2012 ALY PHD, JEN A V06.1 TDAP DX 09/04/2012 EATON RN BSN, JENNIFER L V06.1 TDAP DX 09/04/2012 ROSE DO, GIGI K V06.1 TDAP DX 09/04/2012 ALY PHD, JEN A V06.1 TDAP DX 09/04/2012 ROSE DO, GIGI K V06.1 TDAP DX 09/04/2012 ALY PHD, JEN A V06.1 TDAP DX 09/04/2012 ALY PHD, JEN A V06.1 TDAP DX 09/04/2012 ROSE DO, GIGI K V06.1 TDAP DX 09/04/2012 ALY PHD, JEN A V06.1 TDAP DX 09/04/2012 BOBENA VILLARREALNJENNIFER L V06.1 TDAP DX 09/04/2012 ALY PHD, JEN A V06.1 TDAP DX 09/04/2012 TRAE DPM, GINA V06.1 TDAP DX 09/04/2012 DO, GIGI K V06.1 TDAP DX 09/04/2012 BOBENA VILLARREALNJENNIFER L V06.1 TDAP DX 09/04/2012 ALY PHD, JEN A V06.1 TDAP DX 09/04/2012 ROSE DO, GIGI K V06.1 TDAP DX 09/04/2012 ALY PHD, JEN A V06.1 TDAP DX 09/04/2012 ALY PHD, JEN A V06.1 TDAP DX 10/11/2012 MARCELO DOLAN Ot 438.89 OTH LATE EFFECT-CEREBROVASCULAR DISEASE 10/11/2012 MARCELO DOLAN PHARMACY OPERATIONS MANAGER Ot 724.6 DISORDERS OF SACRUM 10/11/2012 MARCELO DOLAN PHARMACY OPERATIONS MANAGER Ot 726.5 ENTHESOPATHY OF HIP 10/11/2012 MARCELO DOLAN PHARMACY OPERATIONS MANAGER Ot 728.87 MUSCLE WEAKNESS (GENERALIZED) 10/11/2012 MARCELO DLOANP Ot 781.2 ABNORMALITY OF GAIT 10/11/2012 MARCELO DOLANP Ot V57.1 PHYSICAL THERAPY NEC 12/07/2012 703.0 INGROWING NAIL WITH INFECTION 12/07/2012 703.0 INGROWING NAIL WITH INFECTION 12/07/2012 703.0 INGROWING NAIL WITH INFECTION 12/07/2012 703.0 INGROWING NAIL WITH INFECTION 12/07/2012 ROSE DO, GIGI K 703.0 INGROWING NAIL WITH INFECTION 12/07/2012 BO[facility] PHD, JEN A 703.0 INGROWING NAIL WITH INFECTION 12/07/2012 VALENTINE RN BSN, LATASHA S 703.0 INGROWING NAIL WITH INFECTION 12/07/2012 ROSE DO, GIGI K 703.0 INGROWING NAIL WITH INFECTION 12/07/2012 [facility] PHD, JEN A 703.0 INGROWING NAIL WITH INFECTION 12/07/2012 ROSE DO, GIGI K 703.0 INGROWING NAIL WITH INFECTION 12/07/2012 EATON RN BSN, JENNIFER L 703.0 INGROWING NAIL WITH INFECTION 12/07/2012 BOEG[facility] PHD, JEN A 703.0 INGROWING NAIL WITH INFECTION 12/07/2012 EATON RN BSN, JENNIFER L 703.0 INGROWING NAIL WITH INFECTION 12/07/2012 [facility] PHD, JEN A 703.0 INGROWING NAIL WITH INFECTION 12/07/2012 EATON RN BSN, JENNIFER L 703.0 INGROWING NAIL WITH INFECTION 12/07/2012 BOEANSHUL PHD, JEN A 703.0 INGROWING NAIL WITH INFECTION 12/07/2012 ROSE DO, GIGI K 703.0 INGROWING NAIL WITH INFECTION 12/07/2012 EATON RN BSN, JENNIFER L 703.0 INGROWING NAIL WITH INFECTION 12/07/2012 ALY PHD, JEN A 703.0 INGROWING NAIL WITH INFECTION 12/07/2012 ROSE DO, GIGI K 703.0 INGROWING NAIL WITH INFECTION 12/07/2012 EATON RN BSN, JENNIFER L 703.0 INGROWING NAIL WITH INFECTION 12/07/2012 BOEGIGIOUT PHD, JEN A 703.0 INGROWING NAIL WITH INFECTION 12/07/2012 EATON RN BSN, JENNIFER L 703.0 INGROWING NAIL WITH INFECTION 12/07/2012 BOEGIGIOUT PHD, JEN A 703.0 INGROWING NAIL WITH INFECTION 12/07/2012 EATON RN BSN, JENNIFER L 703.0 INGROWING NAIL WITH INFECTION 12/07/2012 ROSE DO, GIGI K 703.0 INGROWING NAIL WITH INFECTION 12/07/2012 ALY PHD, JEN A 703.0 INGROWING NAIL WITH INFECTION 12/07/2012 ROSE DO, GIGI K 703.0 INGROWING NAIL WITH INFECTION 12/07/2012 BOEANSHUL PHD, JEN A 703.0 INGROWING NAIL WITH INFECTION 12/07/2012 BOEANSHUL PHD, JEN A 703.0 INGROWING NAIL WITH INFECTION 12/07/2012 ROSE DO, GIGI K 703.0 INGROWING NAIL WITH INFECTION 12/07/2012ANSHUL PHD, JEN A 703.0 INGROWING NAIL WITH INFECTION 12/07/2012 EATON RN BSN, JENNIFER L 703.0 INGROWING NAIL WITH INFECTION 12/07/2012ANSHUL PHD, JEN A 703.0 INGROWING NAIL WITH INFECTION 12/07/2012 TRAE DPM, GINA 703.0 INGROWING NAIL WITH INFECTION 12/07/2012 ROSE DO, GIGI K 703.0 INGROWING NAIL WITH INFECTION 12/07/2012 EATON RN BSN, JENNIFER L 703.0 INGROWING NAIL WITH INFECTION 12/07/2012ANSHUL PHD, JEN A 703.0 INGROWING NAIL WITH INFECTION 12/07/2012 ROSE DO, GIGI K 703.0 INGROWING NAIL WITH INFECTION 12/07/2012 ALY PHD, JEN A 703.0 INGROWING NAIL WITH INFECTION 12/07/2012 ALY PHD, JEN A 703.0 INGROWING NAIL WITH INFECTION 12/31/2012 V76.12 Mammogram Screening 12/31/2012 V76.51 visit for: screening malignant neoplasm colon 12/31/2012 V76.12 Mammogram Screening 12/31/2012 V76.51 visit for: screening malignant neoplasm colon 12/31/2012 V76.12 Mammogram Screening 12/31/2012 V76.51 visit for: screening malignant neoplasm colon 12/31/2012 GIGI ROSE DO V76.12 Mammogram Screening 12/31/2012 GIGI ROSE DO V76.51 visit for: screening malignant neoplasm colon 12/31/2012 ALY PHD, JEN Odom V76.12 Mammogram Screening 12/31/2012 ALY BENITEZ, JEN Odom V76.51 visit for: screening malignant neoplasm colon 12/31/2012 VALENTINE GILLESPIE LATASHA S V76.12 Mammogram Screening 12/31/2012 VALENTINE GILLESPIE LATASHA S V76.51 visit for: screening malignant neoplasm colon 12/31/2012 ROSE DO, GIGI K V76.12 Mammogram Screening 12/31/2012 ROSE DO, GIGI K V76.51 visit for: screening malignant neoplasm colon 12/31/2012 JEN LU PHD A V76.12 Mammogram Screening 12/31/2012 JEN LU PHD V76.51 visit for: screening malignant neoplasm colon 12/31/2012 ROSE DO, GIGI K V76.12 Mammogram Screening 12/31/2012 ROSE DO GIGI K V76.51 visit for: screening malignant neoplasm colon 12/31/2012 JENNIFER IGLESIAS APRN L V76.12 Mammogram Screening 12/31/2012 JENNIFER IGLESIAS APRN L V76.51 visit for: screening malignant neoplasm colon 12/31/2012 JEN LU PHD A V76.12 Mammogram Screening 12/31/2012 JEN LU PHD V76.51 visit for: screening malignant neoplasm colon 12/31/2012 JENNIFER IGLESIAS APRN L V76.12 Mammogram Screening 12/31/2012 YINKA IGLESIAS APRNSON L V76.51 visit for: screening malignant neoplasm colon 12/31/2012 JEN LU PHD A V76.12 Mammogram Screening 12/31/2012 JEN LU PHD V76.51 visit for: screening malignant neoplasm colon 12/31/2012 YINKA IGLESIAS APRNSON L V76.12 Mammogram Screening 12/31/2012 YINKA IGLESIAS APRNSON L V76.51 visit for: screening malignant neoplasm colon 12/31/2012 JEN LU PHD A V76.12 Mammogram Screening 12/31/2012 JEN LU PHD V76.51 visit for: screening malignant neoplasm colon 12/31/2012 ROSE DO, GIGI K V76.12 Mammogram Screening 12/31/2012 ROSE DO GIGI K V76.51 visit for: screening malignant neoplasm colon 12/31/2012 KELSIE GILLESPIE JENNIFER L V76.12 Mammogram Screening 12/31/2012 KELSIE RN BSN, JENNIFER L V76.51 visit for: screening malignant neoplasm colon 12/31/2012 ALY BENITEZ, JEN A V76.12 Mammogram Screening 12/31/2012 ALY BENITEZ, JEN A V76.51 visit for: screening malignant neoplasm colon 12/31/2012 ROSE DO GIGI K V76.12 Mammogram Screening 12/31/2012 ROSE HERNANDEZ GIGI K V76.51 visit for: screening malignant neoplasm colon 12/31/2012 KELSIE GILLESPIE JENNIFER L V76.12 Mammogram Screening 12/31/2012 JENNIFER IGLESIAS APRN L V76.51 visit for: screening malignant neoplasm colon 12/31/2012 JEN LU PHD A V76.12 Mammogram Screening 12/31/2012 JEN LU PHD A V76.51 visit for: screening malignant neoplasm colon 12/31/2012 KELSIE GILLESPIE JENNIFER L V76.12 Mammogram Screening 12/31/2012 JENNIFER IGLESIAS APRN L V76.51 visit for: screening malignant neoplasm colon 12/31/2012 JEN LU PHD A V76.12 Mammogram Screening 12/31/2012 JEN LU PHD A V76.51 visit for: screening malignant neoplasm colon 12/31/2012 KELSIE GILLESPIE JENNIFER L V76.12 Mammogram Screening 12/31/2012 JENNIFER IGLESIAS APRN L V76.51 visit for: screening malignant neoplasm colon 12/31/2012 ROSE DO GIGI K V76.12 Mammogram Screening 12/31/2012 ROSE DO GIGI K V76.51 visit for: screening malignant neoplasm colon 12/31/2012 ALY BENITEZ, JEN A V76.12 Mammogram Screening 12/31/2012 JEN LU PHD A V76.51 visit for: screening malignant neoplasm colon 12/31/2012 ROSE DO GIGI K V76.12 Mammogram Screening 12/31/2012 ROSE DO GIGI K V76.51 visit for: screening malignant neoplasm colon 12/31/2012 JEN LU PHD A V76.12 Mammogram Screening 12/31/2012 JEN LU PHD A V76.51 visit for: screening malignant neoplasm colon 12/31/2012 JEN LU PHD A V76.12 Mammogram Screening 12/31/2012 JEN LU PHD A V76.51 visit for: screening malignant neoplasm colon 12/31/2012 ROSE DO, GIGI K V76.12 Mammogram Screening 12/31/2012 ROSE DO GIGI K V76.51 visit for: screening malignant neoplasm colon 12/31/2012 JEN LU PHD A V76.12 Mammogram Screening 12/31/2012 JEN LU PHD V76.51 visit for: screening malignant neoplasm colon 12/31/2012 JENNIFER IGLESIAS APRN L V76.12 Mammogram Screening 12/31/2012 JENNIFER IGLESIAS APRN L V76.51 visit for: screening malignant neoplasm colon 12/31/2012 JEN LU PHD A V76.12 Mammogram Screening 12/31/2012 JEN LU PHD V76.51 visit for: screening malignant neoplasm colon 12/31/2012 TRAE DPM, GINA V76.12 Mammogram Screening 12/31/2012 TRAE DPM, GINA V76.51 visit for: screening malignant neoplasm colon 12/31/2012 ROSE DO GIGI K V76.12 Mammogram Screening 12/31/2012 ROSE DO GIGI K V76.51 visit for: screening malignant neoplasm colon 12/31/2012 YINKA IGLESIAS APRNSON L V76.12 Mammogram Screening 12/31/2012 YINKA IGLESIAS APRNSON L V76.51 visit for: screening malignant neoplasm colon 12/31/2012 JEN LU PHD A V76.12 Mammogram Screening 12/31/2012 JEN LU PHD V76.51 visit for: screening malignant neoplasm colon 12/31/2012 ROSE DO GIGI K V76.12 Mammogram Screening 12/31/2012 ROSE DO GIGI K V76.51 visit for: screening malignant neoplasm colon 12/31/2012 JEN LU PHD A V76.12 Mammogram Screening 12/31/2012 JEN LU PHD V76.51 visit for: screening malignant neoplasm colon 12/31/2012 JEN LU PHD A V76.12 Mammogram Screening 12/31/2012 ALY BENITEZ, JEN Odom V76.51 visit for: screening malignant neoplasm colon 04/12/2013 ROSE DO, GIGI K 703.8 ONYCHOCRYPTOSIS 04/12/2013 EATON RN BSN, JENNIFER L 703.8 ONYCHOCRYPTOSIS 04/12/2013 ALY PHD, JEN A 703.8 ONYCHOCRYPTOSIS 04/12/2013 EATON RN BSN, JENNIFER L 703.8 ONYCHOCRYPTOSIS 04/12/2013 ALY PHD, JEN A 703.8 ONYCHOCRYPTOSIS 04/12/2013 EATON RN BSN, JENNIFER L 703.8 ONYCHOCRYPTOSIS 04/12/2013 ALY PHD, JEN A 703.8 ONYCHOCRYPTOSIS 04/12/2013 ROSE DO, GIGI K 703.8 ONYCHOCRYPTOSIS 04/12/2013 EATENA RN BSN, JENNIFER L 703.8 ONYCHOCRYPTOSIS 04/12/2013 ALY PHD, JEN A 703.8 ONYCHOCRYPTOSIS 04/12/2013 ROSE DO, GIGI K 703.8 ONYCHOCRYPTOSIS 04/12/2013 EATENA RN BSN, JENNIFER L 703.8 ONYCHOCRYPTOSIS 04/12/2013 ALY PHD, JEN A 703.8 ONYCHOCRYPTOSIS 04/12/2013 EATENA RN BSN, JENNIFER L 703.8 ONYCHOCRYPTOSIS 04/12/2013 ALY PHD, JEN A 703.8 ONYCHOCRYPTOSIS 04/12/2013 EATON RN BSN, JENNIFER L 703.8 ONYCHOCRYPTOSIS 04/12/2013 ROSE DO, GIGI K 703.8 ONYCHOCRYPTOSIS 04/12/2013 ALY PHD, JEN A 703.8 ONYCHOCRYPTOSIS 04/12/2013 ROSE DO, GIGI K 703.8 ONYCHOCRYPTOSIS 04/12/2013 ALY PHD, JEN A 703.8 ONYCHOCRYPTOSIS 04/12/2013 ALY PHD, JEN A 703.8 ONYCHOCRYPTOSIS 04/12/2013 ROSE DO, GIGI K 703.8 ONYCHOCRYPTOSIS 04/12/2013 ALY PHD, JEN A 703.8 ONYCHOCRYPTOSIS 04/12/2013 JENNIFER IGLESIAS APRN 703.8 ONYCHOCRYPTOSIS 04/12/2013 ALY PHD, JEN A 703.8 ONYCHOCRYPTOSIS 04/12/2013 GINA ROBISON DPM 703.8 ONYCHOCRYPTOSIS 04/12/2013 ROSE DO, GIGI K 703.8 ONYCHOCRYPTOSIS 04/12/2013 JENNIFER IGLESIAS APRN L 703.8 ONYCHOCRYPTOSIS 04/12/2013 ALY PHD, JEN A 703.8 ONYCHOCRYPTOSIS 04/12/2013 GIGI ROSE DO K 703.8 ONYCHOCRYPTOSIS 04/12/2013 ALY PHD, JEN A 703.8 ONYCHOCRYPTOSIS 04/12/2013 ALY PHD, JEN A 703.8 ONYCHOCRYPTOSIS 04/23/2013 JENNIFER IGLESIAS APRN 681.11 ONYCHIA AND PARONYCHIA OF TOE 04/23/2013 ALY PHD, JEN A 681.11 ONYCHIA AND PARONYCHIA OF TOE 04/23/2013 JENNIFER IGLESIAS APRN L 681.11 ONYCHIA AND PARONYCHIA OF TOE 04/23/2013 ALY PHD, JEN A 681.11 ONYCHIA AND PARONYCHIA OF TOE 04/23/2013 JENNIFER IGLESIAS APRN L 681.11 ONYCHIA AND PARONYCHIA OF TOE 04/23/2013 ALY PHD, JEN A 681.11 ONYCHIA AND PARONYCHIA OF TOE 04/23/2013 GIGI ROSE DO K 681.11 ONYCHIA AND PARONYCHIA OF TOE 04/23/2013 JENNIFER IGLESIAS APRN 681.11 ONYCHIA AND PARONYCHIA OF TOE 04/23/2013 ALY PHD, JEN A 681.11 ONYCHIA AND PARONYCHIA OF TOE 04/23/2013 GIGI ROSE DO K 681.11 ONYCHIA AND PARONYCHIA OF TOE 04/23/2013 JENNIFER IGLESIAS APRN 681.11 ONYCHIA AND PARONYCHIA OF TOE 04/23/2013 [facility] PH[facility], JEN A 681.11 ONYCHIA AND PARONYCHIA OF TOE 04/23/2013 JENNIFER IGLESIAS APRN 681.11 ONYCHIA AND PARONYCHIA OF TOE 04/23/2013 [facility] PHD, JEN A 681.11 ONYCHIA AND PARONYCHIA OF TOE 04/23/2013 JENNIFER IGLESIAS APRN 681.11 ONYCHIA AND PARONYCHIA OF TOE 04/23/2013 GIGI ROSE DO K 681.11 ONYCHIA AND PARONYCHIA OF TOE 04/23/2013 [facility] PHD, JEN A 681.11 ONYCHIA AND PARONYCHIA OF TOE 04/23/2013 GIGI ROSE DO 681.11 ONYCHIA AND PARONYCHIA OF TOE 04/23/2013 [facility] PHD, JEN A 681.11 ONYCHIA AND PARONYCHIA OF TOE 04/23/2013 [facility] PHD, JEN A 681.11 ONYCHIA AND PARONYCHIA OF TOE 04/23/2013 GIGI ROSE DO K 681.11 ONYCHIA AND PARONYCHIA OF TOE 04/23/2013 [facility] PHD, JEN A 681.11 ONYCHIA AND PARONYCHIA OF TOE 04/23/2013 JENNIFER IGLESIAS APRN 681.11 ONYCHIA AND PARONYCHIA OF TOE 04/23/2013 [facility] PHD, JEN A 681.11 ONYCHIA AND PARONYCHIA OF TOE 04/23/2013 GINA ROBISON DPM 681.11 ONYCHIA AND PARONYCHIA OF TOE 04/23/2013 GIGI ROSE DO 681.11 ONYCHIA AND PARONYCHIA OF TOE 04/23/2013 JENNIFER IGLESIAS APRN 681.11 ONYCHIA AND PARONYCHIA OF TOE 04/23/2013 [facility] PHD, JEN A 681.11 ONYCHIA AND PARONYCHIA OF TOE 04/23/2013 GIGI ROSE DO K 681.11 ONYCHIA AND PARONYCHIA OF TOE 04/23/2013 [facility] PHD, JEN A 681.11 ONYCHIA AND PARONYCHIA OF TOE 04/23/2013 ALY PHD, JEN A 681.11 ONYCHIA AND PARONYCHIA OF TOE 07/22/2013 SCOTT SANDERSON, VICTORIANO M Ot 250.00 DIAB JEFFREY WO COMPL, TYPE II OR UNSPEC TY 07/22/2013 SCOTT SANDERSON, VICTORIANO M Ot 401.9 HYPERTENSION NOS 07/22/2013 SCOTT SANDERSON, VICTORIANO M Ot 531.90 STOMACH ULCER NOS 07/22/2013 SCOTT SANDERSON, VICTORIANO Cartagena Ot 535.40 OTH SPECIFIED GASTRITIS,W/O MENTION OF H 07/22/2013 SCOTT SANDERSON, VICTORIANO Cartagena Ot V12.72 PERSONAL HISTORY OF COLONIC POLYPS 07/29/2013 JENNIFER IGLESIAS APRN 786.05 SHORTNESS OF BREATH 07/29/2013 ALY BENITEZ, JEN A 786.05 SHORTNESS OF BREATH 07/29/2013 ROSE HERNANDEZ GIGI K 786.05 SHORTNESS OF BREATH 07/29/2013 JENNIFER IGLESIAS APRN L 786.05 SHORTNESS OF BREATH 07/29/2013 ALY BENITEZ, JEN A 786.05 SHORTNESS OF BREATH 07/29/2013 JENNIFER IGLESIAS APRN L 786.05 SHORTNESS OF BREATH 07/29/2013 ALY BENITEZ, JEN A 786.05 SHORTNESS OF BREATH 07/29/2013 JENNIFER IGLESIAS APRN L 786.05 SHORTNESS OF BREATH 07/29/2013 ROSE , GIGI K 786.05 SHORTNESS OF BREATH 07/29/2013 ALY PHD, JEN A 786.05 SHORTNESS OF BREATH 07/29/2013 ROSE DO, GIGI K 786.05 SHORTNESS OF BREATH 07/29/2013 ALY PHD, JEN A 786.05 SHORTNESS OF BREATH 07/29/2013 ALY PHD, JEN A 786.05 SHORTNESS OF BREATH 07/29/2013 ROSE DO, GIGI K 786.05 SHORTNESS OF BREATH 07/29/2013 ALY PHD, JEN A 786.05 SHORTNESS OF BREATH 07/29/2013 JENNIFER IGLESIAS APRN L 786.05 SHORTNESS OF BREATH 07/29/2013 ALY PHD, JEN A 786.05 SHORTNESS OF BREATH 07/29/2013 TRAE DPM, GINA 786.05 SHORTNESS OF BREATH 07/29/2013 ROSE DO, GIGI K 786.05 SHORTNESS OF BREATH 07/29/2013 EATON RN BSN, JENNIFER L 786.05 SHORTNESS OF BREATH 07/29/2013 [facility] PHD, JEN A 786.05 SHORTNESS OF BREATH 07/29/2013 ROSE DO, GIGI K 786.05 SHORTNESS OF BREATH 07/29/2013 [facility] PHD, JEN A 786.05 SHORTNESS OF BREATH 07/29/2013 [facility] PHD, JEN A 786.05 SHORTNESS OF BREATH 09/11/2013 EATON RN BSN, JENNIFER L 780.99 ANHEDONIA 09/11/2013 [facility] PHD, JEN A 780.99 ANHEDONIA 09/11/2013 EATON RN BSN, JENNIFER L 780.99 ANHEDONIA 09/11/2013 ROSE DO, GIGI K 780.99 ANHEDONIA 09/11/2013 [facility] PHD, JEN A 780.99 ANHEDONIA 09/11/2013 ROSE DO, GIGI K 780.99 ANHEDONIA 09/11/2013 [facility] PHD, JEN A 780.99 ANHEDONIA 09/11/2013 [facility] PHD, JEN A 780.99 ANHEDONIA 09/11/2013 ROSE DO, GIGI K 780.99 ANHEDONIA 09/11/2013 [facility] PHD, JEN A 780.99 ANHEDONIA 09/11/2013 EATON RN BSN, JENNIFER L 780.99 ANHEDONIA 09/11/2013 [facility] PHD, JEN A 780.99 ANHEDONIA 09/11/2013 TRAE DPM, GINA 780.99 ANHEDONIA 09/11/2013 ROSE DO, GIGI K 780.99 ANHEDONIA 09/11/2013 EATON RN BSN, JENNIFER L 780.99 ANHEDONIA 09/11/2013 [facility] PHD, JEN A 780.99 ANHEDONIA 09/11/2013 ROSE DO, GIGI K 780.99 ANHEDONIA 09/11/2013 [facility] PHD, JEN A 780.99 ANHEDONIA 09/11/2013 [facility] PHD, JEN A 780.99 ANHEDONIA 10/01/2013 ROSE DODANIELA K 719.43 joint pain in the left wrist 10/01/2013 [facility] PHD, JEN Odom 719.43 joint pain in the left wrist 10/01/2013 ROSE GIGI HERNANDEZ 719.43 joint pain in the left wrist 10/01/2013 ALY BENITEZ, JEN A 719.43 joint pain in the left wrist 10/01/2013 ALY BENITEZ, JEN A 719.43 joint pain in the left wrist 10/01/2013 ROSE DANIEL HERNANDEZA K 719.43 joint pain in the left wrist 10/01/2013 ALY PHD, JEN A 719.43 joint pain in the left wrist 10/01/2013 JENNIFER IGLESIAS APRN L 719.43 joint pain in the left wrist 10/01/2013 ALY PHD, JEN A 719.43 joint pain in the left wrist 10/01/2013 GINA ROBISON DPM 719.43 joint pain in the left wrist 10/01/2013 ROSE DODANIELA K 719.43 joint pain in the left wrist 10/01/2013 JENNIFER IGLESIAS APRN L 719.43 joint pain in the left wrist 10/01/2013 ALY BENITEZ, JEN A 719.43 joint pain in the left wrist 10/01/2013 GIGI ROSE DO K 719.43 joint pain in the left wrist 10/01/2013 ALY BENITEZ, JEN A 719.43 joint pain in the left wrist 10/01/2013 ALY BENITEZ, JEN A 719.43 joint pain in the left wrist 10/03/2013 TOM BRIGHT MD Ot V45.89 POSTSURGICAL STATES NEC 10/03/2013 TOM BRIGHT MD Ot V57.1 PHYSICAL THERAPY NEC 10/03/2013 TOM BRIGHT MD Ot V58.78 AFTERCARE POST SURGERY MUSCULOSKELETAL S 10/04/2013 SRINIVAS DUNBAR MD Ot 278.01 MORBID OBESITY 10/04/2013 SRINIVAS DUNBAR MD Ot 719.45 JOINT PAIN-PELVIS 10/04/2013 SRINIVAS DUNBAR MD Ot 721.3 LUMBOSACRAL SPONDYLOSIS 10/04/2013 SRINIVAS DUNBAR MD Ot 724.6 DISORDERS OF SACRUM 10/04/2013 SRINIVAS DUNBAR MD Ot 729.1 MYALGIA AND MYOSITIS NOS 10/04/2013 SRINIVAS DUNBAR MD Ot V58.69 OTH MED,LT,CURRENT USE 10/04/2013 SRINIVAS DUNBAR MD Ot V85.41 BODY MASS INDEX 40.0-44.9, ADULT 10/21/[facility], JEN A 813.05 FRACTURE OF HEAD OF RADIUS CLOSED 10/21/2013 GIGI ROSE DO K 813.05 FRACTURE OF HEAD OF RADIUS CLOSED 10/21/2013 [facility] PHD, JEN A 813.05 FRACTURE OF HEAD OF RADIUS CLOSED 10/21/2013 [facility] PHD, JEN A 813.05 FRACTURE OF HEAD OF RADIUS CLOSED 10/21/2013 GIGI ROSE DO K 813.05 FRACTURE OF HEAD OF RADIUS CLOSED 10/21/[facility] PHD, JEN A 813.05 FRACTURE OF HEAD OF RADIUS CLOSED 10/21/2013 JENNIFER IGLESIAS APRN 813.05 FRACTURE OF HEAD OF RADIUS CLOSED 10/21/2013 PHD, JEN A 813.05 FRACTURE OF HEAD OF RADIUS CLOSED 10/21/2013 TRAE DPM, GINA 813.05 FRACTURE OF HEAD OF RADIUS CLOSED 10/21/2013 GIGI ROSE DO 813.05 FRACTURE OF HEAD OF RADIUS CLOSED 10/21/2013 JENNIFER IGLESIAS APRN 813.05 FRACTURE OF HEAD OF RADIUS CLOSED 10/21/2013 [facility] PHD, JEN A 813.05 FRACTURE OF HEAD OF RADIUS CLOSED 10/21/2013 GIGI ROSE DO K 813.05 FRACTURE OF HEAD OF RADIUS CLOSED 10/21/2013 [facility] PHD, JEN A 813.05 FRACTURE OF HEAD OF RADIUS CLOSED 10/21/2013 [facility] PHD, JEN A 813.05 FRACTURE OF HEAD OF RADIUS CLOSED 10/25/2013 GIGI ROSE DO 735.4 HAMMER TOE (ACQUIRED) 10/25/[facility], JEN Odom 735.4 HAMMER TOE (ACQUIRED) 10/25/2013 [facility] , JEN A 735.4 HAMMER TOE (ACQUIRED) 10/25/2013 GIGI ROSE DO 735.4 HAMMER TOE (ACQUIRED) 10/25/[facility] PHD, JEN A 735.4 HAMMER TOE (ACQUIRED) 10/25/2013 JENNIFER IGLESIAS APRN 735.4 HAMMER TOE (ACQUIRED) 10/25/[facility] PHD, JEN A 735.4 HAMMER TOE (ACQUIRED) 10/25/2013 TRAE GILLETTE, GINA 735.4 HAMMER TOE (ACQUIRED) 10/25/2013 GIGI ROSE DO 735.4 HAMMER TOE (ACQUIRED) 10/25/2013 JENNIFER IGLESIAS APRN 735.4 HAMMER TOE (ACQUIRED) 10/25/2013 JEN LU PHD 735.4 HAMMER TOE (ACQUIRED) 10/25/2013 GIGI ROSE DO 735.4 HAMMER TOE (ACQUIRED) 10/25/2013 JEN LU PHD 735.4 HAMMER TOE (ACQUIRED) 10/25/2013 JEN LU PHD 735.4 HAMMER TOE (ACQUIRED) 12/27/2013 SRINIVAS DUNBAR MD Ot 278.01 MORBID OBESITY 12/27/2013 SRINIVAS DNUBAR MD Ot 719.45 JOINT PAIN-PELVIS 12/27/2013 SRINIVAS DUNBAR MD Ot 721.3 LUMBOSACRAL SPONDYLOSIS 12/27/2013 SRINIVAS DUNBAR MD Ot 722.52 LUMB/LUMBOSAC DISC DEGEN 12/27/2013 SRINIVAS DUNBAR MD Ot 724.6 DISORDERS OF SACRUM 12/27/2013 SRINIVAS DUNBAR MD Ot 729.1 MYALGIA AND MYOSITIS NOS 12/27/2013 SRINIVAS DUNBAR MD Ot V58.69 OTH MED,LT,CURRENT USE 12/27/2013 SRINIVAS DUNBAR MD Ot V85.41 BODY MASS INDEX 40.0-44.9, ADULT 01/21/2014 GIGI ROSE DO 780.50 SLEEP DISTURBANCE, UNSPECIFIED 01/21/2014 JEN LU PHD 780.50 SLEEP DISTURBANCE, UNSPECIFIED 01/21/2014 JENNIFER IGLESIAS APRN 780.50 SLEEP DISTURBANCE, UNSPECIFIED 01/21/2014 JEN LU PHD 780.50 SLEEP DISTURBANCE, UNSPECIFIED 01/21/2014 TRAE GILLETTE, GINA 780.50 SLEEP DISTURBANCE, UNSPECIFIED 01/21/2014 GIGI ROSE DO 780.50 SLEEP DISTURBANCE, UNSPECIFIED 01/21/2014 JENNIFER IGLESIAS APRN 780.50 SLEEP DISTURBANCE, UNSPECIFIED 01/21/2014 [facility] PHD, JEN A 780.50 SLEEP DISTURBANCE, UNSPECIFIED 01/21/2014 GIGI ROSE DO K 780.50 SLEEP DISTURBANCE, UNSPECIFIED 01/21/2014 ALY BENITEZ, JEN Odom 780.50 SLEEP DISTURBANCE, UNSPECIFIED 01/21/2014 ALY PHD, JEN Odom 780.50 SLEEP DISTURBANCE, UNSPECIFIED 03/19/2014 JENNIFER IGLESIAS APRN 278.01 OBESITY, MORBID (BMI >40) 03/19/2014 ALY BENITEZ, JEN Odom 278.01 OBESITY, MORBID (BMI >40) 03/19/2014 GINA ROBISON DPM 278.01 OBESITY, MORBID (BMI >40) 03/19/2014 DANIEL ROSE DOA K 278.01 OBESITY, MORBID (BMI >40) 03/19/2014 JENNIFER IGLESIAS APRN 278.01 OBESITY, MORBID (BMI >40) 03/19/2014 JEN LU PHD 278.01 OBESITY, MORBID (BMI >40) 03/19/2014 GIGI ROSE DO K 278.01 OBESITY, MORBID (BMI >40) 03/19/2014 JEN LU PHD 278.01 OBESITY, MORBID (BMI >40) 03/19/2014 JEN LU PHD 278.01 OBESITY, MORBID (BMI >40) 04/16/2014 DANIEL ROSE DOA K V72.31 INSTRUCTIONAL MATERIALS DIRECTOR EXAM, ROUTINE 04/16/2014 ROSE DO GIGI K V76.10 BREAST CANCER SCREENING 04/16/2014 JENNIFER IGLESIAS APRN V72.31 INSTRUCTIONAL MATERIALS DIRECTOR EXAM, ROUTINE 04/16/2014 JENNIFER IGLESIAS APRN V76.10 BREAST CANCER SCREENING 04/16/2014 JEN LU PHD A V72.31 INSTRUCTIONAL MATERIALS DIRECTOR EXAM, ROUTINE 04/16/2014 JEN LU PHD A V76.10 BREAST CANCER SCREENING 04/16/2014 ROSE DO GIGI K V72.31 INSTRUCTIONAL MATERIALS DIRECTOR EXAM, ROUTINE 04/16/2014 ROSE DO GIGI K V76.10 BREAST CANCER SCREENING 04/16/2014 JEN LU PHD A V72.31 INSTRUCTIONAL MATERIALS DIRECTOR EXAM, ROUTINE 04/16/2014 JEN LU PHD A V76.10 BREAST CANCER SCREENING 04/16/2014 JEN LU PHD A V72.31 INSTRUCTIONAL MATERIALS DIRECTOR EXAM, ROUTINE 04/16/2014 ALY BENITEZ, JEN Odom V76.10 BREAST CANCER SCREENING 04/25/2014 SRINIVAS DUNBAR MD Ot 278.01 MORBID OBESITY 04/25/2014 SRINIVAS DUNBAR MD Ot 721.3 LUMBOSACRAL SPONDYLOSIS 04/25/2014 SRINIVAS DUNBAR MD Ot 724.6 DISORDERS OF SACRUM 04/25/2014 SRINIVAS DUNBAR MD Ot 729.1 MYALGIA AND MYOSITIS NOS 04/25/2014 SRINIVAS DUNBAR MD Ot V58.69 OTH MED,LT,CURRENT USE 04/25/2014 SRINIVAS DUNBAR MD Ot V85.41 BODY MASS INDEX 40.0-44.9, ADULT 05/13/2014 POLLO SANDERSON, CAROLINA Leyva Ot 272.4 05/13/2014 POLLO SANDERSON, CAROLINA Leyva Ot 397.0 05/13/2014 CAROLINA ABAD MD Ot 401.9 05/13/2014 POLLO SANDERSON, CAROLINA J Ot 424.0 05/13/2014 POLLO SANDERSON, CAROLINA J Ot 780.4 05/13/2014 POLLO SANDERSON, CAROLINA Leyva Ot 785.1 05/13/2014 POLLO SANDERSON, CAROLINA J Ot 272.4 05/13/2014 POLLO SANDERSON, CAROLINA J Ot 397.0 05/13/2014 POLLO SANDERSON, CAROLINA J Ot 401.9 05/13/2014 POLLO SANDERSON, CAROLINA J Ot 424.0 05/13/2014 POLLO SANDERSON, CAROLINA J Ot 780.4 05/13/2014 POLLO SANDERSON, CAROLINA Leyva Ot 785.1 05/16/2014 ZOE MARSH APRN Ot V76.12 06/02/2014 ZOE MARSH APRN Ot V76.12 06/18/2014 GIGI ROSE DO 799.24 EMOTIONAL LABILITY 06/18/2014 JEN LU PHD 799.24 EMOTIONAL LABILITY 06/18/2014 JEN LU PHD 799.24 EMOTIONAL LABILITY 08/07/2014 Ot 272.4 08/07/2014 Ot 401.9 08/07/2014 Ot 785.1 08/07/2014 Ot V12.54 08/13/2014 CAROLINA ABAD MD Ot 250.00 DIAB JEFFREY WO COMPL, TYPE II OR UNSPEC TY 08/13/2014 CAROLINA ABAD MD Ot 272.4 HYPERLIPIDEMIA NEC/NOS 08/13/2014 CAROLINA ABAD MD Ot 401.9 HYPERTENSION NOS 08/13/2014 CAROLINA ABAD MD Ot 414.01 CORONARY ATHEROSCLEROSIS OF [place] CORON 08/13/2014 CAROLINA ABAD MD Ot 794.39 ABN CARDIOVASC STUDY NEC 08/18/2014 Ot 272.4 08/18/2014 Ot 401.9 08/18/2014 Ot 785.1 08/18/2014 Ot V12.54 10/10/2014 SRINIVAS DUNBAR MD Ot 278.01 MORBID OBESITY 10/10/2014 SRINIVAS DUNBAR MD Ot 721.3 LUMBOSACRAL SPONDYLOSIS 10/10/2014 SRINIVAS DUNBAR MD Ot 724.6 DISORDERS OF SACRUM 10/10/2014 SRINIVAS UDNBAR MD Ot 729.1 MYALGIA AND MYOSITIS NOS 10/10/2014 SRINIVAS DUNBAR MD Ot V58.69 OTH MED,LT,CURRENT USE 10/10/2014 SRINIVAS DUNBAR MD Ot V85.41 BODY MASS INDEX 40.0-44.9, ADULT 11/06/2014 JENNIFER IGLESIAS PHARMACY OPERATIONS MANAGER Ot 493.90 11/18/2014 JENNIFER IGLESIAS PHARMACY OPERATIONS MANAGER Ot 493.90 01/23/2015 SRINIVAS DUNBAR MD Ot 724.6 DISORDERS OF SACRUM 05/07/2015 Ot 715.31 05/07/2015 Ot 959.2 05/07/2015 Ot E000.8 05/07/2015 Ot E849.0 05/07/2015 Ot E888.9 05/07/2015 Ot 354.2 05/07/2015 Ot V72.63 05/07/2015 Ot V72.81 05/07/2015 Ot V74.8 05/07/2015 Ot 813.42 05/07/2015 Ot E000.8 05/07/2015 Ot E849.0 05/07/2015 Ot E888.9 05/07/2015 Ot V72.83 05/07/2015 Ot 733.90 05/07/2015 Ot 719.61 05/07/2015 Ot V72.63 05/07/2015 Ot V74.8 05/07/2015 Ot V76.12 05/07/2015 Ot 719.45 05/07/2015 Ot 721.2 05/07/2015 Ot 721.3 05/07/2015 Ot 719.45 05/07/2015 SAUD DUTTA APRN Ot V76.12 05/07/2015 BETTINA SANDERSON, SRINIVAS Leyva Ot 719.45 05/07/2015 SCOTT SANDERSON, VICTORIANO Cartagena Ot V72.84 05/07/2015 JENNIFER IGLESIAS Frandy PHARMACY OPERATIONS MANAGER Ot 278.00 05/07/2015 JENNIFER IGLESIAS Frandy PHARMACY OPERATIONS MANAGER Ot 338.29 05/07/2015 EATJENNIFER SUTHERLAND Frandy PHARMACY OPERATIONS MANAGER Ot 813.05 05/07/2015 JENNIFER IGLESIAS Frandy PHARMACY OPERATIONS MANAGER Ot E928.9 05/07/2015 KELSIE JENNIFER Frandy PHARMACY OPERATIONS MANAGER Ot V82.81 05/07/2015 POLLO SANDERSON, CAROLIAN Leyva Ot 272.4 05/07/2015 POLLO SANDERSON, CAROLINA Leyva Ot 397.0 05/07/2015 POLLO SANDERSON, CAROLINA Leyva Ot 401.9 05/07/2015 POLLO SANDERSON, CAROLINA Leyva Ot 424.0 05/07/2015 POLLO SANDERSON, CAROLINA Leyva Ot 780.4 05/07/2015 POLLO SANDERSON, CAROLINA Leyva Ot 785.1 05/07/2015 ZOE MARSH APRN Ot V76.12 05/07/2015 Ot 272.4 05/07/2015 Ot 401.9 05/07/2015 Ot 785.1 05/07/2015 Ot V12.54 05/07/2015 BOBENA JENNIFER Frandy PHARMACY OPERATIONS MANAGER Ot 493.90 06/03/2015 BOBENA JENNIFER Frandy PHARMACY OPERATIONS MANAGER Ot Z12.31 05/05/2016 KELSIE JENNIFER Frandy PHARMACY OPERATIONS MANAGER Ot M81.0 AGE-RELATED OSTEOPOROSIS W/O CURRENT PAT 05/17/2016 BOBENA JENNIFER Frandy PHARMACY OPERATIONS MANAGER Ot Z12.31 ENCNTR SCREEN MAMMOGRAM FOR MALIGNANT NE 05/19/2016 Ot 354.2 ULNAR NERVE LESION 05/19/2016 Ot V72.63 PRE- PROCEDURAL LABORATORY EXAMINATION 05/19/2016 Ot V72.81 EXAM-PRE- OPERATIVE CARDIOVASCULAR 05/19/2016 Ot V74.8 SCREEN- BACTERIAL DIS NEC 05/19/2016 Ot 813.42 FX DISTAL RADIUS NEC-CL 05/19/2016 Ot E000.8 OTHER EXTERNAL CAUSE STATUS 05/19/2016 Ot E849.0 ACCIDENT IN HOME 05/19/2016 Ot E888.9 FALL NOS 05/19/2016 Ot V72.83 EXAM PRE- OPERATIVE NEC 05/19/2016 Ot 733.90 BONE CARTILAGE DIS NOS 05/19/2016 Ot 719.61 JOINT SYMPTOM NEC-SHLDER 05/19/2016 Ot V72.63 PRE- PROCEDURAL LABORATORY EXAMINATION 05/19/2016 Ot V74.8 SCREEN- BACTERIAL DIS NEC 05/19/2016 Ot V76.12 OTH SCREEN MAMMO-MALIGN NEOPLASM OF ARMEN 05/19/2016 Ot 719.45 JOINT PAIN- PELVIS 05/19/2016 Ot 721.2 THORACIC SPONDYLOSIS 05/19/2016 Ot 721.3 LUMBOSACRAL SPONDYLOSIS 05/19/2016 Ot 719.45 JOINT PAIN- PELVIS 05/19/2016 SAUD DUTTA APRN Ot V76.12 OTH SCREEN MAMMO-MALIGN NEOPLASM OF ARM[place] 05/19/2016 BETTINA SANDERSON, SRINIVAS Leyva Ot 719.45 JOINT PAIN-PELVIS 05/19/2016 SCOTT SANDERSON, VICTORIANO Cartagena Ot V72.84 EXAM PRE-OPERATIVE NOS 05/19/2016 JENNIFER IGLESIAS PHARMACY OPERATIONS MANAGER Ot 278.00 OBESITY, NOS 05/19/2016 JENNIFER IGLESIAS PHARMACY OPERATIONS MANAGER Ot 338.29 OTHER CHRONIC PAIN 05/19/2016 JENNIFER IGLESIAS PHARMACY OPERATIONS MANAGER Ot 813.05 FX RADIUS HEAD-CLOSED 05/19/2016 JENNIFER IGLESIAS PHARMACY OPERATIONS MANAGER Ot E928.9 ACCIDENT NOS 05/19/2016 JENNIFER IGLESIAS PHARMACY OPERATIONS MANAGER Ot V82.81 SCREENING FOR OSTEOPOROSIS 05/19/2016 POLLO SANDERSON, CAROLINA Leyva Ot 272.4 HYPERLIPIDEMIA NEC/NOS 05/19/2016 CAROLINA ABAD MD Ot 397.0 TRICUSPID VALVE DISEASE 05/19/2016 CAROLINA ABAD MD Ot 401.9 HYPERTENSION NOS 05/19/2016 CAROLINA ABAD MD Ot 424.0 MITRAL VALVE DISORDER 05/19/2016 CAROLINA ABAD MD Ot 780.4 DIZZINESS AND GIDDINESS 05/19/2016 CAROLINA ABAD MD Ot 785.1 PALPITATIONS 05/19/2016 SALMA, ZOE A RN BSN Ot V76.12 OTH SCREEN MAMMO-MALIGN NEOPLASM OF ARM[place] 05/19/2016 Ot 272.4 HYPERLIPIDEMIA NEC/NOS 05/19/2016 Ot 401.9 HYPERTENSION NOS 05/19/2016 Ot 785.1 PALPITATIONS 05/19/2016 Ot V12.54 PERSONAL HX OF TIA, CEREBRAL INFARCTION 05/19/2016 JENNIFER IGLESIAS PHARMACY OPERATIONS MANAGER Ot 493.90 ASTHMA, UNSPECIFIED 05/19/2016 JENNIFER IGLESIAS PHARMACY OPERATIONS MANAGER Ot Z12.31 ENCNTR SCREEN MAMMOGRAM FOR MALIGNANT NE 05/19/2016 JENNIFER IGLESIAS PHARMACY OPERATIONS MANAGER Ot Z12.31 ENCNTR SCREEN MAMMOGRAM FOR MALIGNANT NE 05/20/2016 JENNIEFR IGLESIAS PHARMACY OPERATIONS MANAGER Ot M85.88 OTH DISRD OF BONE DENSITY AND STRUCTURE, 05/20/2016 JENNIFER IGLESIAS PHARMACY OPERATIONS MANAGER Ot Z12.31 ENCNTR SCREEN MAMMOGRAM FOR MALIGNANT NE 06/09/2016 JENNIFER IGLESIAS PHARMACY OPERATIONS MANAGER Ot M85.88 OTH DISRD OF BONE DENSITY AND STRUCTURE, 06/09/2016 JENNIFER IGLESIAS PHARMACY OPERATIONS MANAGER Ot Z12.31 ENCNTR SCREEN MAMMOGRAM FOR MALIGNANT NE 06/15/2016 JENNIFER IGLESIAS PHARMACY OPERATIONS MANAGER Ot M85.88 OTH DISRD OF BONE DENSITY AND STRUCTURE, 06/15/2016 JENNIFER IGLESIAS PHARMACY OPERATIONS MANAGER Ot Z12.31 ENCNTR SCREEN MAMMOGRAM FOR MALIGNANT NE 10/10/2016 Ot 733.90 BONE CARTILAGE DIS NOS 10/10/2016 Ot 719.61 JOINT SYMPTOM NEC-SHLDER 10/10/2016 Ot V72.63 PRE- PROCEDURAL LABORATORY EXAMINATION 10/10/2016 Ot V74.8 SCREEN- BACTERIAL DIS NEC 10/10/2016 Ot V76.12 OTH SCREEN MAMMO-MALIGN NEOPLASM OF [place] 10/10/2016 Ot 719.45 JOINT PAIN- PELVIS 10/10/2016 Ot 721.2 THORACIC SPONDYLOSIS 10/10/2016 Ot 721.3 LUMBOSACRAL SPONDYLOSIS 10/10/2016 Ot 719.45 JOINT PAIN- PELVIS 10/10/2016 SAUD DUTTA RN BSN Ot V76.12 OTH SCREEN MAMMO-MALIGN NEOPLASM OF [place] 10/10/2016 SRINIVAS DUNBAR MD Ot 719.45 JOINT PAIN-PELVIS 10/10/2016 SCOTT SANDERSON, VICTORIANO Cartagena Ot V72.84 EXAM PRE-OPERATIVE NOS 10/10/2016 JENNIFER IGLESIAS Frandy PHARMACY OPERATIONS MANAGER Ot 278.00 OBESITY, NOS 10/10/2016 JENNIFER IGLESIAS Frandy PHARMACY OPERATIONS MANAGER Ot 338.29 OTHER CHRONIC PAIN 10/10/2016 JENNIFER IGLESIAS Frandy PHARMACY OPERATIONS MANAGER Ot 813.05 FX RADIUS HEAD-CLOSED 10/10/2016 JENNIFER IGLESIAS Frandy PHARMACY OPERATIONS MANAGER Ot E928.9 ACCIDENT NOS 10/10/2016 JENNIFER IGLESIAS Frandy PHARMACY OPERATIONS MANAGER Ot V82.81 SCREENING FOR OSTEOPOROSIS 10/10/2016 CAROLINA ABAD MD Ot 272.4 HYPERLIPIDEMIA NEC/NOS 10/10/2016 CAROLINA ABAD MD Ot 397.0 TRICUSPID VALVE DISEASE 10/10/2016 CAROLINA ABAD MD Ot 401.9 HYPERTENSION NOS 10/10/2016 CAROLINA ABAD MD Ot 424.0 MITRAL VALVE DISORDER 10/10/2016 CAROLINA ABAD MD Ot 780.4 DIZZINESS AND GIDDINESS 10/10/2016 CAROLINA ABAD MD Ot 785.1 PALPITATIONS 10/10/2016 ZOE MARSH APRN Ot V76.12 OTH SCREEN MAMMO-MALIGN NEOPLASM OF [place] 10/10/2016 Ot 272.4 HYPERLIPIDEMIA NEC/NOS 10/10/2016 Ot 401.9 HYPERTENSION NOS 10/10/2016 Ot 785.1 PALPITATIONS 10/10/2016 Ot V12.54 PERSONAL HX OF TIA, CEREBRAL INFARCTION 10/10/2016 BOBENA JENNIFER L PHARMACY OPERATIONS MANAGER Ot 493.90 ASTHMA, UNSPECIFIED 10/10/2016 BOBENA JENNIFER L PHARMACY OPERATIONS MANAGER Ot Z12.31 ENCNTR SCREEN MAMMOGRAM FOR MALIGNANT NE 10/10/2016 BOBJENNIFER SUTHERLAND PHARMACY OPERATIONS MANAGER Ot M85.88 OTH DISRD OF BONE DENSITY AND STRUCTURE, 10/10/2016 JENNIFER IGLESIAS PHARMACY OPERATIONS MANAGER Ot Z12.31 ENCNTR SCREEN MAMMOGRAM FOR MALIGNANT NE 10/14/2016 KAMINI ORTIZ Ot E66.01 MORBID (SEVERE) OBESITY DUE TO EXCESS CA 10/14/2016 KAMINI ORTIZ Ot E78.2 MIXED HYPERLIPIDEMIA 10/14/2016 KAMINI ORTIZ Ot I08.1 RHEUMATIC DISORDERS OF BOTH MITRAL AND T 10/14/2016 KAMINI ORTIZ Ot I25.10 ATHSCL HEART DISEASE OF [place] CORONARY 10/14/2016 KAMINI ORTIZ Ot R00.2 PALPITATIONS 10/14/2016 KAMINI ORTIZ Ot E66.01 MORBID (SEVERE) OBESITY DUE TO EXCESS CA 10/14/2016 KAMINI ORTIZ Ot E78.2 MIXED HYPERLIPIDEMIA 10/14/2016 KAMINI ORTIZ Ot I08.1 RHEUMATIC DISORDERS OF BOTH [place] AND T 10/14/2016 KAMINI ORTIZ Ot I25.10 ATHSCL HEART DISEASE OF [place] CORONARY 10/14/2016 KAMINI ORTIZ Ot R00.2 PALPITATIONS 11/03/2016 KAMINI ORTIZ Ot E66.01 MORBID (SEVERE) OBESITY DUE TO EXCESS CA 11/03/2016 KAMINI ORTIZ Ot E78.2 MIXED HYPERLIPIDEMIA 11/03/2016 KAMINI ORTIZ Ot I08.1 RHEUMATIC DISORDERS OF BOTH [place] AND T 11/03/2016 KAMINI ORTIZ Ot I25.10 ATHSCL HEART DISEASE OF [place] CORONARY 11/03/2016 KAMINI ORTIZ Ot R00.2 PALPITATIONS 11/14/2016 KAMINI ORTIZ Ot E66.01 MORBID (SEVERE) OBESITY DUE TO EXCESS CA 11/14/2016 KAMINI ORTIZ Ot E78.2 MIXED HYPERLIPIDEMIA 11/14/2016 KAMINI ORTIZ Ot I08.1 RHEUMATIC DISORDERS OF BOTH [place] AND T 11/14/2016 KAMINI ORTIZ Ot I25.10 ATHSCL HEART DISEASE OF [place] CORONARY 11/14/2016 KAMINI ORTIZ Ot R00.2 PALPITATIONS 12/29/2016 KAMINI ORTIZ Ot E66.01 MORBID (SEVERE) OBESITY DUE TO EXCESS CA 12/29/2016 KAMINI ORTIZ Ot E78.2 MIXED HYPERLIPIDEMIA 12/29/2016 KAMINI ORTIZ Ot I25.10 ATHSCL HEART DISEASE OF [place] CORONARY 12/29/2016 KAMINI ORTIZ Ot R00.2 PALPITATIONS 12/29/2016 KAMINI ORTIZ Ot Z68.41 BODY MASS INDEX (BMI) 40.0-44.9, ADULT 01/19/2017 KAMINI ORTIZ Ot E66.01 MORBID (SEVERE) OBESITY DUE TO EXCESS CA 01/19/2017 KAMINI ORTIZ Ot E78.2 MIXED HYPERLIPIDEMIA 01/19/2017 KAMINI ORTIZ Ot I25.10 ATHSCL HEART DISEASE OF [place] CORONARY 01/19/2017 KAMINI ORTIZ Ot R00.2 PALPITATIONS 01/19/2017 KAMINI ORTIZ Ot Z68.41 BODY MASS INDEX (BMI) 40.0-44.9, ADULT 01/24/2017 KAMINI ORTIZ Ot E66.01 MORBID (SEVERE) OBESITY DUE TO EXCESS CA 01/24/2017 KAMINI ORTIZ Ot E78.2 MIXED HYPERLIPIDEMIA 01/24/2017 KAMINI ORTIZ Ot I25.10 ATHSCL HEART DISEASE OF [place] CORONARY 01/24/2017 KAMINI ORTIZ Ot R00.2 PALPITATIONS 01/24/2017 KAMINI ORTIZ Ot Z68.41 BODY MASS INDEX (BMI) 40.0-44.9, ADULT 05/16/2017 JENNIFER IGLESIAS Ot Z12.31 ENCNTR SCREEN MAMMOGRAM FOR MALIGNANT NE 05/18/2017 Ot 719.45 JOINT PAIN- PELVIS 05/18/2017 Ot 721.2 THORACIC SPONDYLOSIS 05/18/2017 Ot 721.3 LUMBOSACRAL SPONDYLOSIS 05/18/2017 Ot 719.45 JOINT PAIN- PELVIS 05/18/2017 SAUD DUTTA APRN Ot V76.12 OT SCREEN MAMMO-MALIGN NEOPLASM OF [place] 05/18/2017 BETTINA SANDERSON, SRINIVAS Leyva Ot 719.45 JOINT PAIN-PELVIS 05/18/2017 SCOTT SANDERSON, VICTORIANO Cartagena Ot V72.84 EXAM PRE-OPERATIVE NOS 05/18/2017 JENNIFER IGLESIAS PHARMACY OPERATIONS MANAGER Ot 278.00 OBESITY, NOS 05/18/2017 JENNIFER IGLESIAS PHARMACY OPERATIONS MANAGER Ot 338.29 OTHER CHRONIC PAIN 05/18/2017 JENNIFER IGLESIAS PHARMACY OPERATIONS MANAGER Ot 813.05 FX RADIUS HEAD-CLOSED 05/18/2017 JENNIFER IGLESIAS PHARMACY OPERATIONS MANAGER Ot E928.9 ACCIDENT NOS 05/18/2017 JENNIFER IGLESIAS PHARMACY OPERATIONS MANAGER Ot V82.81 SCREENING FOR OSTEOPOROSIS 05/18/2017 POLLO SANDERSON, CAROLINA Leyva Ot 272.4 HYPERLIPIDEMIA NEC/NOS 05/18/2017 POLLO SANDERSON, CAROLINA Leyva Ot 397.0 TRICUSPID VALVE DISEASE 05/18/2017 CAROLINA ABAD MD Ot 401.9 HYPERTENSION NOS 05/18/2017 CAROLINA ABAD MD Ot 424.0 MITRAL VALVE DISORDER 05/18/2017 CAROLINA ABAD MD Ot 780.4 DIZZINESS AND GIDDINESS 05/18/2017 CAROLINA ABAD MD Ot 785.1 PALPITATIONS 05/18/2017 ZOE MARSH APRN Ot V76.12 OTH SCREEN MAMMO-MALIGN NEOPLASM OF [place] 05/18/2017 Ot 272.4 HYPERLIPIDEMIA NEC/NOS 05/18/2017 Ot 401.9 HYPERTENSION NOS 05/18/2017 Ot 785.1 PALPITATIONS 05/18/2017 Ot V12.54 PERSONAL HX OF TIA, CEREBRAL INFARCTION 05/18/2017 JENNIFER IGLESIAS PHARMACY OPERATIONS MANAGER Ot 493.90 ASTHMA, UNSPECIFIED 05/18/2017 JENNIFER IGLESIAS PHARMACY OPERATIONS MANAGER Ot Z12.31 ENCNTR SCREEN MAMMOGRAM FOR MALIGNANT NE 05/18/2017 JENNIFER IGLESIAS Frandy PHARMACY OPERATIONS MANAGER Ot M85.88 OTH DISRD OF BONE DENSITY AND STRUCTURE, 05/18/2017 JENNIFER IGLESIAS PHARMACY OPERATIONS MANAGER Ot Z12.31 ENCNTR SCREEN MAMMOGRAM FOR MALIGNANT NE 05/18/2017 KAMINI ORTIZ Ot E66.01 MORBID (SEVERE) OBESITY DUE TO EXCESS CA 05/18/2017 KAMINI ORTIZ Ot E78.2 MIXED HYPERLIPIDEMIA 05/18/2017 KAMINI ORTIZ Ot I08.1 RHEUMATIC DISORDERS OF BOTH MITR[place] AND T 05/18/2017 KAMINI ORTIZ Ot I25.10 ATHSCL HEART DISEASE OF [place] CORONARY 05/18/2017 KAMINI ORTIZ Ot R00.2 PALPITATIONS 05/18/2017 KAMINI ORTIZ Ot E66.01 MORBID (SEVERE) OBESITY DUE TO EXCESS CA 05/18/2017 KAMINI ORTIZ Ot E78.2 MIXED HYPERLIPIDEMIA 05/18/2017 KAMINI ORTIZ Ot I25.10 ATHSCL HEART DISEASE OF [place] CORONARY 05/18/2017 KAMINI ORTIZ Ot R00.2 PALPITATIONS 05/18/2017 KAMINI ORTIZ Ot Z68.41 BODY MASS INDEX (BMI) 40.0-44.9, ADULT 05/18/2017 JENNIFER IGLESIAS PHARMACY OPERATIONS MANAGER Ot Z12.31 ENCNTR SCREEN MAMMOGRAM FOR MALIGNANT NE 05/25/2017 JENNIFER IGLESIAS PHARMACY OPERATIONS MANAGER Ot Z87.891 PERSONAL HISTORY OF NICOTINE DEPENDENCE 05/30/2017 JENNIFER IGLESIAS PHARMACY OPERATIONS MANAGER Ot Z87.891 PERSONAL HISTORY OF NICOTINE DEPENDENCE 06/13/2017 JENNIFER IGLESIAS PHARMACY OPERATIONS MANAGER Ot Z12.31 ENCNTR SCREEN MAMMOGRAM FOR MALIGNANT NE 06/21/2017 JENNIFER IGLESIAS PHARMACY OPERATIONS MANAGER Ot Z12.2 ENCNTR SCREEN FOR MALIGNANT NEOPLASM OF 06/21/2017 JENNIFER IGLESIAS PHARMACY OPERATIONS MANAGER Ot Z87.891 PERSONAL HISTORY OF NICOTINE DEPENDENCE 06/21/2017 JENNIFER IGLESIAS PHARMACY OPERATIONS MANAGER Ot Z12.31 ENCNTR SCREEN MAMMOGRAM FOR MALIGNANT NE 06/28/2017 JENNIFER IGLESIAS PHARMACY OPERATIONS MANAGER Ot Z12.2 ENCNTR SCREEN FOR MALIGNANT NEOPLASM OF 06/28/2017 JENNIFER IGLESIAS PHARMACY OPERATIONS MANAGER Ot Z87.891 PERSONAL HISTORY OF NICOTINE DEPENDENCE Procedures Code [place] [address] URINE DRUG SCREEN (IN-HOUSE ) 03/28/2012 68635 XRAY THORACIC SPINE 3 VIEWS 03/28/2012 60758 XRAY LUMBAR SPINE MIN 4 VIEWS 03/28/2012 75904 XRAY HIP RIGHT UNILATERAL MIN 2 VIEWS 03/28/2012 93401 INDIV PSYTX 45/50 MIN 04/10/2012 50429 ROUTINE VENIPUNCTURE 04/25/2012 01819 A1C (IN-HOUSE) 04/25/2012 06005 URINE DRUG SCREEN (IN-HOUSE ) 04/25/2012 34115 LIVER PANEL (LFT) 04/25/2012 92859 LIPID PANEL 04/25/2012 65241 MEASURE BLOOD OXYGEN LEVEL 05/12/2012 07271 PSYTX PT&/FAMILY 45 MINUTES 05/22/2012 62307 URINE DRUG SCREEN (IN-HOUSE ) 05/25/2012 78573 XRAY HIP LEFT UNILATERAL 1 VIEW 05/25/2012 URINEDRUG URINE DRUG SCREEN (CON'F ) 05/25/2012 56470 PSYTX PT&/FAMILY 45 MINUTES 06/05/2012 73009 URINE DRUG SCREEN (IN-HOUSE ) 06/22/2012 32782 JOINT INJECTION- LARGE JOINT (SPECIFY MEDCIN DESCRIPTION) 06/22/2012 67107 PSYTX PT&/FAMILY 45 MINUTES 07/12/2012 84076 ROUTINE VENIPUNCTURE 07/13/2012 50009 URINE DRUG SCREEN (IN-HOUSE ) 07/13/2012 33450 A1C (IN-HOUSE) 07/13/2012 26901 LIVER PANEL (LFT) 07/13/2012 31506 LIPID PANEL 07/13/2012 Erasto Zimmerman 07/13/2012 14657 OXIMETRY 07/24/2012 40103 NUCLEAR STRESS TESTING 07/24/2012 35711 ECHO 2D 07/24/2012 45768 STREP A (IN-HOUSE) 08/09/2012 54830 GLUCOSE 08/09/2012 47047 URINE DRUG SCREEN (IN-HOUSE ) 08/17/2012 11580 PSYTX PT&/FAMILY 45 MINUTES 08/17/2012 47574 STREP A (IN-HOUSE) 09/14/2012 71655 CULTURE THROAT 09/14/2012 25769 URINE DRUG SCREEN (IN-HOUSE ) 09/14/2012 00664 MICRO ALBUMIN-IN HOUSE 10/26/2012 67880 A1C (IN-HOUSE) 10/26/2012 68041 URINE DRUG SCREEN (IN-HOUSE ) 10/26/2012 02087 MICROALBUMIN 10/26/2012 61376 PSYTX PT&/FAMILY 45 MINUTES 10/27/2012 Podiatry Gina Robsion 12/15/2012 52075 ROUTINE VENIPUNCTURE 12/31/2012 08342 URINE DRUG SCREEN (IN-HOUSE ) 12/31/2012 91711 CBC 12/31/2012 0294366 GFR CALC (RESULT ONLY) 12/31/2012 93250 MAGNESIUM 12/31/2012 89462 CMP 12/31/2012 67525 TSH 12/31/2012 95033 MAMMOGRAM, SCREENING 01/01/2013 Cardiolog Cardiology 01/01/2013 16616 PSYTX PT&/FAMILY 45 MINUTES 01/03/2013 00010 PSYTX PT&/FAMILY 45 MINUTES 02/07/2013 85344 MICRO ALBUMIN-IN HOUSE 02/12/2013 09184 A1C (IN-HOUSE) 02/12/2013 G0008 FLU ADMINISTRATION ( MEDICARE ONLY) 02/12/2013 70677 PSYTX PT&/FAMILY 45 MINUTES 03/14/2013 65219 DEBRIDE NAIL 1-5 04/12/2013 78515 EKG, TRACING (IN-HOUSE) 04/23/2013 Cardiolog iYnka Mann 04/23/2013 52434 URINE DRUG SCREEN (IN-HOUSE ) 04/23/2013 Marcelo Martínez 05/03/2013 91060 PSYTX PT&/FAMILY 45 MINUTES 05/21/2013 60897 PSYTX PT&/FAMILY 45 MINUTES 06/11/2013 07686 A1C (IN-HOUSE) 06/12/2013 01540 ROUTINE VENIPUNCTURE 06/26/2013 81323 EGD 06/26/2013 G0121 COLONOSCOPY, SCREENING 06/26/2013 General S Victoriano Escalera 06/26/2013 45747 CBC 06/26/2013 6695943 GFR CALC (RESULT ONLY) 06/26/2013 25124 CMP 06/26/2013 58469 LIPID PANEL 06/26/2013 76970 TSH 06/26/2013 57184 PSYTX PT&/FAMILY 45 MINUTES 07/03/2013 21031 PULMONARY FUNCTION TEST (IN- HOUSE) 07/29/2013 23180 RESPIRATORY FLOW VOLUME LOOP 07/29/2013 02220 PULMONARY EDUCATION 07/29/2013 46920 PSYTX PT&/FAMILY 45 MINUTES 2013 68741 DEBRIDE NAIL 1-5 08/02/2013 12562 PSYTX PT&/FAMILY 45 MINUTES 08/20/2013 06974 A1C (IN-HOUSE) 09/11/2013 27017 US CAROTID DOPPLER 09/11/2013 73871 OXIMETRY 09/11/2013 34791 PSYTX PT&/FAMILY 45 MINUTES 09/18/2013 17978 DEXA BONE DENSITY, AXIAL 10/18/2013 53736 PSYTX PT&/FAMILY 45 MINUTES 10/18/2013 45418 DEBRIDE NAIL 1-5 10/25/2013 94835 PSYTX PT&/FAMILY 45 MINUTES 11/19/2013 60300 PSYTX PT&/FAMILY 45 MINUTES 01/14/2014 88717 ROUTINE VENIPUNCTURE 01/21/2014 25560 CMP 01/21/2014 79648 LIPID PANEL 01/21/2014 17733 SLEEP STUDY (HOSPITAL- SLEEP STUDY) 01/21/2014 OtErasto Sheth 01/21/2014 90413 PSYTX PT&/FAMILY 45 MINUTES 02/05/2014 56081 A1C (IN-HOUSE) 03/19/2014 73320 MICRO ALBUMIN-IN HOUSE 03/19/2014 47111 URINE DRUG SCREEN (IN-HOUSE ) 03/19/2014 81596 MICROALBUMIN 03/19/2014 61882 PSYTX PT&/FAMILY 45 MINUTES 03/25/2014 31570 DEBRIDE NAIL 1-5 03/28/2014 73056 MAMMOGRAM, SCREENING 04/22/2014 36440 PSYTX PT&/FAMILY 45 MINUTES 05/15/2014 17877 PSYTX PT&/FAMILY 45 MINUTES 08/04/2014 21902 PSYTX PT&/FAMILY 45 MINUTES 08/18/2014 Results Test Result Range CBC - 06/08/17 09:56 WHITE BLOOD CELL COUNT 7.0 Thousand/uL 3.8-10.8 RED BLOOD CELL COUNT 5.07 Million/uL 3.80-5.10 HEMOGLOBIN 13.6 g/dL 11.7-15.5 HEMATOCRIT 42.7 % 35.0-45.0 MCV 84.2 fL 80.0-100.0 MCH 26.8 pg 27.0-33.0 MCHC 31.9 g/dL 32.0-36.0 RDW 15.4 % 11.0-15.0 PLATELET COUNT 281 Thousand/uL 140-400 MPV 12.8 fL 7.5-12.5 ABSOLUTE NEUTROPHILS 5243 cells/uL 0132-1027 ABSOLUTE LYMPHOCYTES 1225 cells/uL 850-3900 ABSOLUTE MONOCYTES 392 cells/uL 200-950 ABSOLUTE EOSINOPHILS 112 cells/uL 15-500 ABSOLUTE BASOPHILS 28 cells/uL 0-200 NEUTROPHILS 74.9 % NRG LYMPHOCYTES 17.5 % NRG MONOCYTES 5.6 % NRG EOSINOPHILS 1.6 % NRG BASOPHILS 0.4 % NRG Encounters ACCT No. Visit Date/Time Discharge Status Pt. Type Provider Facility Loc./Unit Complaint [id number] 08/18/2014 12:41:00 08/18/2014 23:59:59 CLS Outpatient JEN LU PHD [id number] 08/04/2014 12:25:00 08/04/2014 23:59:59 CLS Outpatient JEN LU PHD [id number] 06/18/2014 09:39:00 06/18/2014 23:59:59 CLS Outpatient GIGI ROSE DO [id number] 05/15/2014 09:42:00 05/15/2014 23:59:59 CLS Outpatient JEN LU PHD [id number] 04/16/2014 09:12:00 04/16/2014 23:59:59 CLS Outpatient GIGI ROSE DO [id number] 03/28/2014 08:23:00 03/28/2014 23:59:59 CLS Outpatient GINA ROBISON DPM [id number] 03/25/2014 10:12:00 03/25/2014 23:59:59 CLS Outpatient JEN LU PHD [id number] 03/19/2014 08:15:00 03/19/2014 23:59:59 CLS Outpatient JENNIFER IGLESIAS APRN [id number] 03/19/2014 08:15:00 03/19/2014 23:59:59 CLS Outpatient JENNIFER IGLESIAS APRN [id number] 02/05/2014 13:35:00 02/05/2014 23:59:59 CLS Outpatient JEN LU PHD [id number] 01/21/2014 10:21:00 01/21/2014 23:59:59 CLS Outpatient GIGI ROSE DO [id number] 01/14/2014 08:51:00 01/14/2014 23:59:59 CLS Outpatient JEN LU PHD [id number] 11/18/2013 09:37:00 11/18/2013 23:59:59 CLS Outpatient JEN LU PHD [id number] 10/25/2013 08:41:00 10/25/2013 23:59:59 CLS Outpatient ROSE DO GIGI Bermeo [id number] 10/18/2013 10:49:00 10/18/2013 23:59:59 CLS Outpatient JEN LU PHD [id number] 10/01/2013 12:41:00 10/01/2013 23:59:59 CLS Outpatient ROSE DODANIELLei Bermeo [id number] 09/18/2013 09:39:00 09/18/2013 23:59:59 CLS Outpatient JEN LU PHD [id number] 09/11/2013 09:18:00 09/11/2013 23:59:59 CLS Outpatient EATON RN BSNJENNIFER Miles [id number] 09/11/2013 09:18:00 09/11/2013 23:59:59 CLS Outpatient EATON RN BSNJENNIFER Miles [id number] 08/19/2013 14:59:00 08/19/2013 23:59:59 CLS Outpatient JEN LU PHD [id number] 08/13/2013 09:49:00 08/13/2013 23:59:59 CLS Outpatient EATON RN BSNJENNIFER Miles [id number] 08/02/2013 09:14:00 08/02/2013 23:59:59 CLS Outpatient ROSE DO GIGI Bermeo [id number] 07/31/2013 10:58:00 07/31/2013 23:59:59 CLS Outpatient JEN LU PHD [id number] 07/29/2013 12:33:00 07/29/2013 23:59:59 CLS Outpatient EATON RN BSNJENNIFER Miles [id number] 07/02/2013 12:41:00 07/02/2013 23:59:59 CLS Outpatient JEN LU PHD [id number] 06/26/2013 09:55:00 06/26/2013 23:59:59 CLS Outpatient ROSE DO GIGI Bermeo [id number] 06/12/2013 14:10:00 06/12/2013 23:59:59 CLS Outpatient EATON RN BSNJENNIFER Miles [id number] 06/10/2013 12:35:00 06/10/2013 23:59:59 CLS Outpatient JEN LU PHD [id number] 05/20/2013 11:52:00 05/20/2013 23:59:59 CLS Outpatient JEN LU PHD [id number] 04/23/2013 09:01:00 04/23/2013 23:59:59 CLS Outpatient JENNIFER IGLESIAS APRN Frandy [id number] 04/23/2013 09:01:00 04/23/2013 23:59:59 CLS Outpatient JENNIFER IGLESIAS APRN Frandy [id number] 04/12/2013 08:57:00 04/12/2013 23:59:59 CLS Outpatient GIGI ROSE DO [id number] 03/13/2013 10:28:00 03/13/2013 23:59:59 CLS Outpatient JEN LU PHD [id number] 02/12/2013 13:16:00 02/12/2013 23:59:59 CLS Outpatient GIGI ROSE DO [id number] 02/12/2013 13:16:00 02/12/2013 23:59:59 CLS Outpatient VALENTINE RN BSNLATASHA Noemi [id number] 02/06/2013 09:35:00 02/06/2013 23:59:59 CLS Outpatient JEN LU PHD [id number] 12/31/2012 10:31:00 12/31/2012 23:59:59 CLS Outpatient GIGI ROSE DO [id number] 08/09/2012 15:33:00 08/09/2012 23:59:59 CLS Outpatient YINKA IGLESIAS APRNASH Wise [id number] 07/24/2012 14:49:00 07/24/2012 23:59:59 CLS Outpatient MOSHE BEAULIEU [id number] 07/13/2012 09:16:00 07/13/2012 23:59:59 CLS Outpatient JOSEFINA RODRIGUEZ MD [id number] 07/11/2012 09:58:00 07/11/2012 23:59:59 CLS Outpatient [id number] 06/22/2012 09:21:00 06/22/2012 23:59:59 CLS Outpatient JOSEFINA RODRIGUEZ MD [id number] 06/22/2012 09:21:00 06/22/2012 23:59:59 CLS Outpatient JOSEFINA RODRIGUEZ MD [id number] 06/04/2012 10:57:00 06/04/2012 23:59:59 CLS Outpatient [id number] 05/25/2012 10:56:00 05/25/2012 23:59:59 CLS Outpatient JOSEFINA RODRIGUEZ MD [id number] 05/21/2012 10:46:00 05/21/2012 23:59:59 CLS Outpatient JEN LU PHD [id number] 05/12/2012 10:30:00 05/12/2012 23:59:59 CLS Outpatient KELSIE JENNIFER GILLESPIE [id number] 05/12/2012 10:30:00 05/12/2012 23:59:59 CLS Outpatient [id number] 04/25/2012 09:54:00 04/25/2012 23:59:59 CLS Outpatient JOSEFINA RODRIGUEZ MD [id number] 04/10/2012 10:42:00 04/10/2012 23:59:59 CLS Outpatient [id number] 03/28/2012 08:51:00 03/28/2012 23:59:59 CLS Outpatient [id number] 03/02/2012 09:45:00 03/02/2012 23:59:59 CLS Outpatient JEN LU PHD [id number] 01/02/2013 09:36:00 Document Registration [id number] 12/31/2012 10:31:00 Document Registration [id number] 12/14/2012 16:20:00 Document Registration [id number] 12/07/2012 14:14:00 Document Registration [id number] 10/26/2012 13:17:00 Document Registration [id number] 10/16/2012 15:06:00 Document Registration [id number] 09/28/2012 14:50:00 Document Registration [id number] 09/14/2012 09:37:00 Document Registration [id number] 09/14/2012 09:37:00 Document Registration [id number] 08/17/2012 14:53:00 Document Registration [id number] 08/17/2012 14:53:00 Document Registration [id number] 07/24/2012 14:49:00 Document Registration [id number] 09/27/2017 10:20:00 09/27/2017 23:59:59 CLS Outpatient BOBJENNIFER SUTHERLAND APRN [facility] [id number] 06/08/2017 09:00:00 Document Registration [id number] 01/23/2015 07:04:48 ACT Document Registration [id number] 05/31/2017 11:26:00 05/31/2017 23:59:59 CLS Outpatient BOBJENNIFER SUTHERLAND PHARMACY OPERATIONS MANAGER [facility] RAD SCREENING [id number] 05/18/2017 08:59:00 05/18/2017 23:59:59 CLS Outpatient BOBJENNIFER SUTHERLAND [facility] RAD SCREENING [id number] 12/28/2016 07:30:00 12/28/2016 23:59:59 CLS Outpatient KAMINI ORTIZ [facility] CARD I25.10 CAD [id number] 10/13/2016 11:06:00 10/13/2016 23:59:59 CLS Outpatient KAMINI ORTIZ [facility] CARD I25.10 CAD [id number] 05/19/2016 10:16:00 05/19/2016 23:59:59 CLS Outpatient JENNIFER IGLESIAS [facility] RAD BREAST CANCER SCREENING,OSTEOPENIA [id number] 05/07/2015 09:03:00 05/07/2015 23:59:59 CLS Outpatient JENNIFER IGLESIAS [facility] RAD ROUTINE MAMMOGRAM SCREENING [id number] 01/23/2015 07:01:00 01/23/2015 07:50:00 DIS Outpatient SRINIVAS DUNBAR MD [facility] CARD SACROILIAC JOINT DYSFUNCTION [id number] 10/15/2014 12:32:00 10/15/2014 23:59:59 CLS Outpatient JENNIFER IGLESIASP [facility] RT ASTHMA [id number] 10/10/2014 08:17:00 10/10/2014 09:45:00 DIS Outpatient SRINIVAS DUNBAR MD [facility] CARD SIJD [id number] 08/13/2014 06:47:00 08/13/2014 15:30:00 DIS Outpatient CAROLINA ABAD MD [facility] CATH ABNORMAL STRESS CAD HTN HLE CHEST PAIN DIABETES [id number] 04/25/2014 10:19:00 04/25/2014 23:59:59 CLS Outpatient ZOE MARSH APRN [facility] RAD SCREENING [id number] 04/25/2014 07:02:00 04/25/2014 07:50:00 DIS Outpatient SRINIVAS DUNBAR MD [facility] CARD SACROILIAC JOINT DYSFUNCTION [id number] 04/10/2014 09:14:00 04/10/2014 23:59:59 CLS Outpatient CAROLINA ABAD MD [facility] CARD DIZZINESS,PALPITATIONS, HLP,HTN [id number] 12/27/2013 08:22:00 12/27/2013 09:12:00 DIS Outpatient SRINIVAS DUNBAR MD [facility] CARD SJD [id number] 10/31/2013 09:41:00 10/31/2013 23:59:59 CLS Outpatient JENNIFER IGLESIAS [facility] RAD CLOSED FX HEAD OF RADIUS,CHRONIC PAIN [id number] 10/04/2013 09:36:00 10/04/2013 11:09:00 DIS Outpatient SRINIVAS DUNBAR MD [facility] CARD SACRALLIAC JOINT DSYFUNCTION [id number] 10/03/2013 10:00:00 10/03/2013 11:29:00 DIS Outpatient TOM BRIGHT MD [facility] REHAB FX R TIBIA [id number] 07/22/2013 08:31:00 07/22/2013 10:55:00 DIS Outpatient VICTORIANO ESCALERA MD [facility] SDC BARRX;HISTORY OF POLYPS [id number] 07/17/2013 07:42:00 07/17/2013 23:59:59 CLS Outpatient VICTORIANO ESCALERA MD [facility] PREOP BARRX;HISTORY OF POLYPS [id number] 03/20/2013 11:43:00 03/20/2013 23:59:59 CLS Outpatient SRINIVAS DUNBAR MD [facility] RAD FALL,NEW ONSET OF HIP LT HIP PAIN [id number] 01/09/2013 09:26:00 01/09/2013 23:59:59 CLS Outpatient SAUD DUTTA APRN [facility] RAD SCREENING [id number] 10/05/2012 09:56:00 10/11/2012 15:43:00 DIS Outpatient MARCELO DOLAN [facility] REHAB LT TROCHANTERIC BURSITIS SI DYSFUNCTION [id number] 11/22/2017 09:32:00 ACT Emergency WELL[place] SANDERSON, CRISTELA Hansen [facility] ER LEFT FOOT INJ [id number] 05/07/2015 09:03:00 Document Registration [id number] 07/16/2014 07:25:00 Document Registration [id number] 08/22/2012 17:19:00 Document Registration [id number] 05/29/2012 11:28:00 Document Registration [id number] 04/10/2012 12:13:00 Document Registration [id number] 10/27/2011 12:45:00 Document Registration [id number] 10/14/2011 10:51:00 Document Registration [id number] 09/21/2011 05:42:00 Document Registration [id number] 09/13/2011 11:55:00 Document Registration [id number] 08/18/2011 09:37:00 Document Registration [id number] 06/23/2011 10:56:00 Document Registration [id number] 05/03/2011 09:07:00 Document Registration [id number] 04/18/2011 06:05:00 Document Registration [id number] 01/07/2011 05:32:00 Document Registration [id number] 01/06/2011 13:49:00 Document Registration [id number] 01/06/2011 05:09:00 Document Registration [id number] 12/22/2010 05:36:00 Document Registration [id number] 12/16/2010 11:50:00 Document Registration [id number] 06/15/2010 12:01:00 Document Registration [id number] 04/12/2010 13:30:00 Document Registration [id number] 01/12/2010 12:45:00 Document Registration
--- NOTE | 2017-11-22 10:25 | ED Lower Extremity ---
General Chief Complaint: Lower Extremity Stated Complaint: LEFT FOOT INJ Nursing Triage Note: TO ROOM PER W/C REPORTS WAS GETTING ON SCALE TO WEIGH TWISTED ANKLE AND HEARD A POP. HYDROCODONE 5 MG ARE NOT HELPING. POST OP SHOE ON L FOOT. Nursing Sepsis Screen: No Definite Risk Source: patient Exam Limitations: no limitations History of Present Illness Date Seen by Provider: Nov 22, 2017 Time Seen by Provider: 09:40 Initial Comments Here with report of left foot pain after she twisted it when stepping on a scale to check her weight. She felt and heard a pop in her foot and is concerned that she broke something. She took a hydrocodone 5 mg tablet and this did not help her pain. Denies other injury. Onset: this morning Severity: mild Pain/Injury Location: left foot Method of Injury: twisted Modifying Factors: Improves With Immobilization; Worse With Movement Allergies and Home Medications Allergies Coded Allergies: Erythromycin Base (Unverified Allergy, Mild, 03/22/09) acetaminophen (Unverified Allergy, Mild, 03/22/09) carbamazepine (Unverified Allergy, Mild, 03/22/09) pentazocine (Unverified Allergy, Mild, 03/22/09) phenytoin (Unverified Allergy, Mild, 03/22/09) propoxyphene (Unverified Allergy, Mild, 03/22/09) theophylline (Unverified Allergy, Mild, 03/22/09) Home Medications Albuterol 8.5 Gm Hfa.aer.ad, 2 PUFF IH QID PRN for WHEEZING, (Reported) Albuterol/Ipratropium 3 Ml Nebu, 3 ML INH TID, (Reported) Alendronate Sodium 70 Mg Tablet, 70 MG PO WEEKLY, (Reported) Aspirin 325 Mg Tab, 325 MG PO DAILY, (Reported) Cholecalciferol 1,000 Unit Tab, 1,000 UNIT PO DAILY, (Reported) Docusate Sodium 100 Mg Cap, 100 MG PO BID, (Reported) Esomeprazole Mag Trihydrate 40 Mg Capsule.dr, 40 MG PO BID, (Reported) Gabapentin 800 Mg Tablet, 800 MG PO QID, (Reported) Glipizide 5 Mg Tablet, 5 MG PO BID, (Reported) Hydrochlorothiazide 25 Mg Tablet, 25 MG PO DAILY, (Reported) Hydrocodone Bit/Acetaminophen 1 Tab Tablet, 1 TAB PO TID, (Reported) Lisinopril 2.5 Mg Tablet, 2.5 MG PO DAILY, (Reported) Loratadine 10 Mg Tab, 10 MG PO DAILY, (Reported) Metoprolol Tartrate 25 Mg Tablet, 25 MG PO HS, (Reported) TAKES 2 (25MG) TABLETS IN THE MORNING AND TAKES 1 (25MG) TABLET IN THE EVENING Metoprolol Tartrate 25 Mg Tablet, 50 MG PO DAILY, (Reported) TAKES 2 (25MG) TABLETS IN THE MORNING AND TAKES 1 (25MG) TABLET IN THE EVENING Mirtazapine 45 Mg Tablet, 45 MG PO HS, (Reported) [place]-3/Dha/Epa/Fish Oil 1 Each Capsule, 2,000 MG PO DAILY, (Reported) TAKES 4 (500MG) CAPSULES Pregabalin 100 Mg Capsule, 100 MG PO BID, (Reported) Rosuvastatin Calcium 40 Mg Tablet, 40 MG PO DAILY, (Reported) Sertraline Hcl 100 Mg Tab, 150 MG PO DAILY, (Reported) TAKES 1 & 1/2 (100MG) TABLET Sucralfate 1 Gm Tab, 1 GM PO ACHS, (Reported) 30 MINUTES BEFORE MEALS AND AT BEDTIME Tizanidine Hcl 4 Mg Capsule, 8 MG PO TID, (Reported) [Azmacort] , 1 PUFF INH BID, (Reported) Patient Home Medication List Home Medication List Reviewed: Yes Constitutional: no symptoms reported; No chills, No fever Respiratory: no symptoms reported Musculoskeletal: joint pain, joint swelling Skin: no symptoms reported Psychiatric/Neurological: No Symptoms Reported Past Nbgcjdu-Vqtgew-Nbfovt Hx Past Med/Social Hx: Reviewed Nursing Past Med/Soc Hx Patient Social History Alcohol Use: Denies Use Recreational Drug Use: No (2PPD SMOKER) Recent Foreign Travel: No Contact w/Someone Who Travel: No Recent Infectious Disease Expo: No Recent Hopitalizations: Yes Immunizations Up To Date Tetanus Booster (TDap): More than 5yrs Date of Pneumonia Vaccine: Jan 15, 2009 Date of Influenza Vaccine: Jan 18, 2012 Past Medical History Surgeries: Yes Respiratory: Yes Emphysema Cardiac: No Neurological: Yes (CEREBELLAR DEGENERATION) Reproductive Disorders: Yes (HYSTERECTOMY 1993) Female Reproductive Disorders: Polycystic Ovarian Dis Sexually Transmitted Disease: No Gastrointestinal: Yes Gastroesophageal Reflux, Ulcer, Gall Bladder Disease Musculoskeletal: Yes Osteoporosis, Arthritis Endocrine: Yes Diabetes, Non-Insulin dep Cataract Loss of Vision: Denies Hearing Impairment: Hard of Hearing Cancer: Yes Cervical Psychosocial: Yes Sleep Difficulties, Anxiety, Depression Integumentary: Yes Eczema Blood Disorders: No Family Medical History Reviewed Nursing Family Hx Physical Exam Vital Signs Vital Signs - First Documented 11/22/17 09:35 Temp 95.0 Pulse 89 Resp 18 B/P (MAP) 111/7 (41) Pulse Ox 96 Capillary Refill : Less Than 3 Seconds Height, Weight, BMI Height: 5'5.00" Weight: 250lbs. 0.0oz. 113.932785or; 41.6 BMI Method:Stated General Appearance: WD/WN, no apparent distress Neck: full range of motion, supple Cardiovascular: regular rate, rhythm, no murmur Respiratory: lungs clear, normal breath sounds Gastrointestinal: non tender, soft Back: normal inspection, no vertebral tenderness Ankles: bilateral ankle non-tender, bilateral ankle normal inspection, bilateral ankle normal range of motion Feet: left foot ecchymosis (questionable bruising to the mid foot and medial aspect.), left foot pain, left foot soft tissue tenderness, left foot swelling, left foot other (tender at the bridge of the foot.) Neurologic/Psychiatric: alert, oriented x 3 Skin: normal color, warm/dry Progress/Results/Core Measures Results/Orders My Orders Orders - CRISTELA PARIS MD Foot, Left, 3 Views (11/22/17 09:41) Vital Signs/I&O 11/22/17 09:35 Temp 95.0 Pulse 89 Resp 18 B/P (MAP) 111/7 (41) Pulse Ox 96 Blood Pressure Mean: 41 Progress Progress Note : Progress Note Seen and evaluated. X-ray left foot. Monitor patient. 1025: No acute fracture. Discharged home with return precautions. Patient verbalize understanding instructions and agreement with plan. She does have postop shoe. Diagnostic Imaging Diagonstic Imaging: Xray Plain Films/CT/US/NM/MRI: other Comments NAME: HOWIE LIMA Frandy MED REC#: [id number] PT STATUS: REG ER : 1960 PHYSICIAN: CRISTELA PARIS MD ADMIT DATE: 11/22/17/ER Signed Date of Exam: 11/22/17 FOOT, LEFT, 3 VIEWS Indication: Fall. Pain. Comparison: None Findings: Three views of the left foot are obtained. There is a deformity irregularity of the distal third and fourth metatarsals which is likely old healed trauma. No acute fracture, malalignment or osseous destructive process is seen. There are postoperative changes of the distal tibia and fibula. There is mild generalized osteopenia. Impression: No acute abnormality is demonstrated. Dictated by: Dictated on workstation # [id number] Dict: 11/22/17 1005 Trans: 11/22/17 1009 Interpreted by: KELI KRISHNAN DO Electronically signed by: KELI KRISHNAN DO 11/22/17 1009 Departure Impression Primary Impression: Sprain and strain of foot Disposition: HOME, SELF-CARE Condition: Stable Departure-Patient Inst. Decision time for Depature: 10:28 Referrals: GIGI ROES DO (PCP) Primary Care Physician JENNIFER IGLESIAS (Family) Primary Care Physician Patient Instructions: Sprain (DC) Add. Discharge Instructions: All discharge instructions reviewed with patient and/or family. Voiced understanding. Use postop shoe as needed for pain and stability. You may take your typical pain medicine as needed for pain. You may use ice packs to affected area 20 minutes per hour as needed. Follow-up with your Dr. in a few days for recheck. Return for worse pain, swelling, weakness or other concerns as needed. CRISTELA PARIS MD Nov 22, 2017 10:25
[2017-11-22 10:38] VITALS: BP 111/7
== END 2017-11-22 10:38 | disposition home or self-care (01) ==
LOC: EDUNIT# 09:30 → ER 09:32
DX: S96.912A Strain of unspecified muscle and tendon at ankle and foot level, left foot, initial encounter (principal); J43.9 Emphysema, unspecified; K21.9 Gastro-esophageal reflux disease without esophagitis; M81.0 Age-related osteoporosis without current pathological fracture; E11.9 Type 2 diabetes mellitus without complications; F41.9 Anxiety disorder, unspecified; F32.9 Major depressive disorder, single episode, unspecified; F17.210 Nicotine dependence, cigarettes, uncomplicated; Z88.1 Allergy status to other antibiotic agents; Z90.710 Acquired absence of both cervix and uterus; Z85.41 Personal history of malignant neoplasm of cervix uteri; Z87.19 Personal history of other diseases of the digestive system; Z88.0 Allergy status to penicillin; Z88.8 Allergy status to other drugs, medicaments and biological substances; Z79.51 Long term (current) use of inhaled steroids; Z79.82 Long term (current) use of aspirin; Z79.84 Long term (current) use of oral hypoglycemic drugs; X50.0XXA Overexertion from strenuous movement or load, initial encounter
CPT/HCPCS: 73630

== ENCOUNTER → 2018-06-12 | Outpatient (CLI) | payer MEDICARE, MEDICAID ==
--- NOTE | 2018-06-12 12:30 | Diagnostic Imaging Report ---
INDICATION: 57-year-old female, postmenopausal. Screening for osteoporosis. COMPARISON: May 19, 2016. FINDINGS: AP Spine L1-L4: [BMD (g/cm2): 1.034] [T-Score: -1.4] [Z-Score: -1.5] [BMD Previous: 1.060] [BMD % Change: -2.5] LT Hip Neck: [BMD (g/cm2): 0.886] [T-Score: -1.1] [Z-Score: -0.7] LT Hip Total: [BMD (g/cm2):0.987] [T-Score:-0.2] [Z-Score: -0.1] [BMD Previous: 0.978] [BMD % Change: N/A] RT Hip Neck: [BMD (g/cm2):0.819] [T-Score:-1.6] [Z-Score:-1.1] RT Hip Total: [BMD (g/cm2):0.971] [T-score:-0.3] [Z-Score:-0.3] [BMD Previous:0.928] [BMD % Change:N/A] *Indicates significant change from prior examination based on 95% confidence level. World Health Organization criteria for BMD interpretation classify patients as Normal (T-score at or above -1.0), Osteopenic (T-score between -1.0 and -2.5) or Osteoporotic (T-score at or below -2.5). LIMITATIONS AND MODIFICATION: None. IMPRESSION: 1. Osteopenia (Low bone mass). 2. No significant change in bone mineral density since prior examination. 3. See below National Osteoporosis Foundation guidelines on when to potentially initiate pharmacologic therapy. Based on the National Osteoporosis Foundation Guidelines, pharmacologic treatment should be initiated in any of the following, unless clinical conditions suggest otherwise: * Any patient with prior fragility fracture of the hip or vertebrae. A spine fracture indicates 5X risk for subsequent spine fracture and 2X risk for subsequent hip fracture. * Osteoporosis (T-score <-2.5). * Postmenopausal women and men age 50 and older with low bone mass/osteopenia (T-score between -1.0 and -2.5) by DXA and 10-year major osteoporotic fracture greater than 20% or a 10-year probability of hip fracture greater than 3%. These fracture risks are supplied above in the FRAX score, if applicable. * Clinician judgement and/or patient preferences may indicate treatment for people with 10-year fracture probabilities above or below these levels. Dictated by: Dictated on workstation # [id number]
--- NOTE | 2018-06-12 13:19 | Diagnostic Imaging Report ---
INDICATION: Routine screening. Comparison is made with prior mammograms from 05/18/2017 and 05/19/2016. 2-D and 3-D bilateral screening mammography was performed with computer-aided Detection (CAD) system. FINDINGS: Scattered fibroglandular densities are identified bilaterally. The parenchymal pattern is stable. No dominant mass or malignant-appearing microcalcifications are seen. There are scattered benign calcifications throughout both breasts. The axillae are unremarkable. IMPRESSION: No mammographic features suspicious for malignancy are identified. ACR BI-RADS Category 2: Benign findings. Result letter will be mailed to the patient. Note: At least 10% of breast cancer is not imaged by mammography. Dictated by: Dictated on workstation # [id number]
== END ==
LOC: RAD 10:11
PROVIDERS: ATTEND Nurse Practitioner Family
DX: Z12.31 Encounter for screening mammogram for malignant neoplasm of breast (principal); Z13.820 Encounter for screening for osteoporosis; M85.89 Other specified disorders of bone density and structure, multiple sites; Z78.0 Asymptomatic menopausal state
CPT/HCPCS: 77067; 77080

== ENCOUNTER → 2018-07-11 | Outpatient (CLI) | payer MEDICARE, MEDICAID ==
--- NOTE | 2018-07-11 18:05 | Diagnostic Imaging Report ---
INDICATION: 13-xsng-hnhs smoking history, cessation 2010. FINDINGS: There is suboptimal inspiratory expansion of the lungs crowding the lung markings with some perihilar partial atelectasis. No lung mass or suspicious nodule. No effusion or pneumothorax. No thoracic aneurysm. No acute chest wall abnormality. IMPRESSION: No suspicious mass or acute finding. LUNG-RADS CATEGORY: 1 - Negative. No lung nodules. Continued low-dose CT follow-up in one year's time recommended. Dictated by: Dictated on workstation # [id number]
== END ==
LOC: RAD 10:35
PROVIDERS: ATTEND Nurse Practitioner Family
DX: Z12.2 Encounter for screening for malignant neoplasm of respiratory organs (principal); Z87.891 Personal history of nicotine dependence

== ENCOUNTER → 2018-09-17 | Outpatient (CLI) | payer MEDICARE, MEDICAID ==
--- NOTE | 2018-09-17 10:12 | Diagnostic Imaging Report ---
Indication: Left ankle sprain Comparison: Radiographs left foot dated 11/22/2017. Technique: Three radiographs of the left ankle dated September 17, 2018 Findings: Lateral plate and screw fixation of the distal fibula is present. Postsurgical changes associated with the medial malleolus and posterior malleolus are also identified. There is no evidence of hardware complication. Chronic calcifications involving the syndesmosis are present. Small well-corticated ossific density is identified adjacent to the tip of the lateral malleolus. No acute fracture or dislocation. No destructive osseous process. Talar dome is unremarkable. Ankle mortise is symmetric. No suspicious radiopaque foreign body. Degenerative changes about the ankle joint. Impression: Postsurgical and degenerative changes are present without acute osseous abnormality or evidence of hardware complication. Dictated by: Dictated on workstation # [id number]
== END ==
LOC: RAD 09:07
PROVIDERS: ATTEND Nurse Practitioner Family
DX: S93.402A Sprain of unspecified ligament of left ankle, initial encounter (principal); M19.072 Primary osteoarthritis, left ankle and foot; Z98.890 Other specified postprocedural states
CPT/HCPCS: 73610

== ENCOUNTER 2018-12-28 10:57 | Emergency (ER) | payer MEDICARE, MEDICAID ==
[~2018-12-28] VITALS: Ht 165.1 cm; Wt 97.5 kg
[2018-12-28] MEDS ORDERED: HYDROcodone/APAP 7.5 MG/325 MG (LORTAB, LORCET PLUS) TABLET PO STA (12:07)
--- NOTE | 2018-12-28 12:19 | ED Lower Extremity ---
General Chief Complaint: Lower Extremity Stated Complaint: FOOT PAIN Nursing Triage Note: PATIENT STATES THAT SHE FELL IN HER HOME LAST NIGHT AFTER SHE TRIPPED. SHE IS HAVING SIGNIFICANT PAIN IN HER RIGHT FOOT AND IS HAVING PROBLEMS BARING WEIGHT ON THE SIDE. Nursing Sepsis Screen: No Definite Risk Source: patient Exam Limitations: no limitations History of Present Illness Date Seen by Provider: Dec 28, 2018 Time Seen by Provider: 11:54 Initial Comments 58-year-old female patient presents to the emergency department with complaints of right foot pain after falling at home last night. Patient reports tripping and falling onto her buttocks last night. Patient reports right foot pain and swelling. Difficulty bearing weight on the right foot. Patient denies hitting her head, loss of consciousness, headache, dizziness, neck pain, back pain, bowel incontinence, bladder incontinence, or hip pain. Patient states she does have Lortab at home, but denies taking anything for pain. Denies using bole-rxa-tibhesg Tylenol or ibuprofen. Patient states she does not remember when she took her last Lortab. Location Injury Occurred: home Onset: other (2099 last night) Pain/Injury Location: right foot Method of Injury: fell Modifying Factors: Worse With Movement, Worse With Other (pain is worse with palpation and ambulation) Allergies and Home Medications Allergies Coded Allergies: carbamazepine (Unverified Allergy, Mild, 03/22/09) erythromycin base (Unverified Allergy, Mild, 03/22/09) pentazocine (Unverified Allergy, Mild, 03/22/09) phenytoin (Unverified Allergy, Mild, 03/22/09) propoxyphene (Unverified Allergy, Mild, 03/22/09) theophylline (Unverified Allergy, Mild, 03/22/09) Home Medications Albuterol 8.5 Gm Hfa.aer.ad, 2 PUFF IH QID PRN for WHEEZING, (Reported) Albuterol/Ipratropium 3 Ml Nebu, 3 ML INH TID, (Reported) Alendronate Sodium 70 Mg Tablet, 70 MG PO WEEKLY, (Reported) Aspirin 325 Mg Tab, 325 MG PO DAILY, (Reported) Cholecalciferol 1,000 Unit Tab, 1,000 UNIT PO DAILY, (Reported) Docusate Sodium 100 Mg Cap, 100 MG PO BID, (Reported) Esomeprazole Mag Trihydrate 40 Mg Capsule.dr, 40 MG PO BID, (Reported) Gabapentin 800 Mg Tablet, 800 MG PO QID, (Reported) Glipizide 5 Mg Tablet, 5 MG PO BID, (Reported) Hydrochlorothiazide 25 Mg Tablet, 25 MG PO DAILY, (Reported) Hydrocodone Bit/Acetaminophen 1 Tab Tablet, 1 TAB PO TID, (Reported) Lisinopril 2.5 Mg Tablet, 2.5 MG PO DAILY, (Reported) Loratadine 10 Mg Tab, 10 MG PO DAILY, (Reported) Metoprolol Tartrate 25 Mg Tablet, 25 MG PO HS, (Reported) TAKES 2 (25MG) TABLETS IN THE MORNING AND TAKES 1 (25MG) TABLET IN THE EVENING Metoprolol Tartrate 25 Mg Tablet, 50 MG PO DAILY, (Reported) TAKES 2 (25MG) TABLETS IN THE MORNING AND TAKES 1 (25MG) TABLET IN THE EVENING Mirtazapine 45 Mg Tablet, 45 MG PO HS, (Reported) Huntley-3/Dha/Epa/Fish Oil 1 Each Capsule, 2,000 MG PO DAILY, (Reported) TAKES 4 (500MG) CAPSULES Pregabalin 100 Mg Capsule, 100 MG PO BID, (Reported) Rosuvastatin Calcium 40 Mg Tablet, 40 MG PO DAILY, (Reported) Sertraline Hcl 100 Mg Tab, 150 MG PO DAILY, (Reported) TAKES 1 & 1/2 (100MG) TABLET Sucralfate 1 Gm Tab, 1 GM PO ACHS, (Reported) 30 MINUTES BEFORE MEALS AND AT BEDTIME Tizanidine Hcl 4 Mg Capsule, 8 MG PO TID, (Reported) [Azmacort] , 1 PUFF INH BID, (Reported) Patient Home Medication List Home Medication List Reviewed: Yes Review of Systems Constitutional: no symptoms reported EENTM: no symptoms reported Respiratory: no symptoms reported Cardiovascular: no symptoms reported Gastrointestinal: no symptoms reported Genitourinary: no symptoms reported Musculoskeletal: No back pain; joint pain (right foot pain), joint swelling (Right foot swelling); No neck pain Skin: no symptoms reported Psychiatric/Neurological: Denies Headache; Pre-Existing Deficit (Neuropathy bilateral feet); Denies Weakness All Other Systems Reviewed Negative Unless Noted: Yes (Negative excepted noted.) Past Ovslmnz-Grdqls-Djrruc Hx Past Med/Social Hx: Reviewed and Corrections made Patient Social History Alcohol Use: Denies Use Recreational Drug Use: No (2PPD SMOKER) Smoking Status: Former Smoker 2nd Hand Smoke Exposure: No Recent Foreign Travel: No Contact w/Someone Who Travel: No Recent Infectious Disease Expo: No Recent Hopitalizations: Yes Immunizations Up To Date Tetanus Booster (TDap): More than 5yrs Date of Pneumonia Vaccine: Jan 15, 2009 Date of Influenza Vaccine: Jan 18, 2012 Past Medical History Surgeries: Yes (OVARIAN CYST, CARPAL TUNNEL, ) Coronary Stent, Gallbladder, Hysterectomy, Orthopedic, Tubal Ligation Respiratory: Yes Emphysema Cardiac: Yes Hypertension Neurological: Yes (CEREBELLAR DEGENERATION) Neuropathy, Stroke Reproductive Disorders: Yes (HYSTERECTOMY 1993) Female Reproductive Disorders: Polycystic Ovarian Dis Sexually Transmitted Disease: No Gastrointestinal: Yes Gastroesophageal Reflux, Ulcer, Gall Bladder Disease Musculoskeletal: Yes Osteoporosis, Arthritis Endocrine: Yes Diabetes, Non-Insulin dep Cataract Loss of Vision: Denies Hearing Impairment: Hard of Hearing Cancer: Yes Cervical Psychosocial: Yes Sleep Difficulties, Anxiety, Depression Integumentary: Yes Eczema Blood Disorders: No Family Medical History Reviewed Nursing Family Hx No Pertinent Family Hx Physical Exam Vital Signs Vital Signs - First Documented 12/28/18 11:01 Pulse 79 Resp 18 B/P (MAP) 127/71 (89) Pulse Ox 99 Capillary Refill : Less Than 3 Seconds Height, Weight, BMI Height: 5'5.00" Weight: 215lbs. 0oz. [id number]; 41.6 BMI Method:Stated General Appearance: WD/WN, no apparent distress HEENT: PERRL/EOMI, pharynx normal Neck: non-tender, full range of motion, supple, normal inspection Cardiovascular: normal peripheral pulses, regular rate, rhythm, no edema, no gallop, no murmur Respiratory: lungs clear, normal breath sounds, no respiratory distress, no accessory muscle use Hips: bilateral hip non-tender, bilateral hip normal inspection, bilateral hip normal range of motion, bilateral hip no evidence of injury Legs: bilateral leg non-tender, bilateral leg normal inspection, bilateral leg normal range of motion, bilateral leg no evidence of injury Knees: bilateral knee non-tender, bilateral knee normal range of motion; right knee ecchymosis (Subacute ecchymosis right anterior knee (patient reports bruising is from a fall 1 weeks ago)); left knee other (abrasion to the left anterior knee without swelling, tenderness, or deformity.) Ankles: bilateral ankle non-tender, bilateral ankle normal inspection, bilateral ankle normal range of motion, bilateral ankle no evidence of injury Feet: left foot non-tender, left foot normal inspection, left foot normal range of motion, left foot no evidence of injury; right foot bone tenderness (Right third, fourth, and fifth distal metatarsals TTP with mild swelling. no evidence of ecchymosis noted.) Neurologic/Tendon: normal sensation, normal motor functions, normal tendon func tions, responds to pain, no evidence tendon injury Neurologic/Psychiatric: no motor/sensory deficits, alert, normal mood/affect, oriented x 3 Skin: normal color, warm/dry; No ecchymosis Progress/Results/Core Measures Results/Orders My Orders Orders - VIVIAN ANDINO Hydrocodone/Apap 7.5/325 Tab (Lortab 7. (12/28/18 12:07) Foot, Right, 3 View (12/28/18 12:07) Vital Signs/I&O 12/28/18 11:01 Pulse 79 Resp 18 B/P (MAP) 127/71 (89) Pulse Ox 99 Blood Pressure Mean: 89 Diagnostic Imaging Diagonstic Imaging: Xray Plain Films/CT/US/NM/MRI: other (right foot) Comments Date of Exam:12/28/18 FOOT, RIGHT, 3 VIEW INDICATION: Pain and swelling in the right foot in the region of the fourth and fifth MTP joints. TIME OF EXAM: 12:23 p.m. Three views of the right foot were obtained. FINDINGS: There is an acute appearing fracture involving the distal fourth metatarsal. No significant displa cement or angulation is seen. There is an age-indeterminate fracture of the distal fifth metatarsal. No displacement is seen. The first through third metatarsals are intact. The phalanges are intact. Midfoot and hindfoot are unremarkable. IMPRESSION: Acute, nondisplaced distal fourth metatarsal fracture. There is a distal fifth metatarsal fracture, although this could potentially be chronic. Clinical correlation for pain at this location is recommended. No other significant abnormality is seen. Dictated on workstation # [id number] Reviewed: Reviewed by Me (Radiology report reviewed by me) Departure Communication (Admissions) Patient seen and evaluated. Diagnostic study findings discussed with the helder childs. Plan for discharge to home. Patient placed in a steplite boot and given crutches. Impression Primary Impression: Fracture of fifth metatarsal bone of right foot Qualified Codes: S92.354A - Nondisplaced fracture of fifth metatarsal bone, right foot, initial encounter for closed fracture Additional Impression: Fracture of fourth metatarsal bone of right foot Qualified Codes: S92.344A - Nondisplaced fracture of fourth metatarsal bone, right foot, initial encounter for closed fracture Disposition: HOME, SELF-CARE Condition: Improved Departure-Patient Inst. Decision time for Depature: 12:44 Referrals: GIGI ROSE DO (PCP) Primary Care Physician MAXIME IZQUIERDO (Family) Primary Care Physician NELSON HENAO MD Patient Instructions: Foot Fracture (DC) Add. Discharge Instructions: All discharge instructions reviewed with patient and/or family. Voiced understan ding. Continue usual home medications including hydrocodone for pain. Boot and crutches as instructed. Partial weightbearing on the right foot. You may remove the boot to shower. Follow-up with Dr. Henao or the orthopedic surgeon of your choice within the next 7 days. Call Monday for appointment time. Follow-up with Kyra Harrison as regularly scheduled. Return to the emergency department for worsened symptoms or any other concerns. VIVIAN ANDINO Dec 28, 2018 12:19
--- NOTE | 2018-12-28 12:39 | Diagnostic Imaging Report ---
INDICATION: Pain and swelling in the right foot in the region of the fourth and fifth MTP joints. TIME OF EXAM: 12:23 p.m. Three views of the right foot were obtained. FINDINGS: There is an acute appearing fracture involving the distal fourth metatarsal. No significant displacement or angulation is seen. There is an age-indeterminate fracture of the distal fifth metatarsal. No displacement is seen. The first through third metatarsals are intact. The phalanges are intact. Midfoot and hindfoot are unremarkable. IMPRESSION: Acute, nondisplaced distal fourth metatarsal fracture. There is a distal fifth metatarsal fracture, although this could potentially be chronic. Clinical correlation for pain at this location is recommended. No other significant abnormality is seen. Dictated by: Dictated on workstation # [id number]
[2018-12-28 13:06] VITALS: BP 127/71
== END 2018-12-28 12:58 | disposition home or self-care (01) ==
LOC: EDUNIT# 10:57 → ER 10:59
DX: S92.354A Nondisplaced fracture of fifth metatarsal bone, right foot, initial encounter for closed fracture (principal); S92.344A Nondisplaced fracture of fourth metatarsal bone, right foot, initial encounter for closed fracture; I10 Essential (primary) hypertension; E11.40 Type 2 diabetes mellitus with diabetic neuropathy, unspecified; J43.9 Emphysema, unspecified; F41.9 Anxiety disorder, unspecified; F32.9 Major depressive disorder, single episode, unspecified; K21.9 Gastro-esophageal reflux disease without esophagitis; Z85.41 Personal history of malignant neoplasm of cervix uteri; Z95.5 Presence of coronary angioplasty implant and graft; Z86.73 Personal history of transient ischemic attack (TIA), and cerebral infarction without residual deficits; Z90.710 Acquired absence of both cervix and uterus; Z98.51 Tubal ligation status; Z87.891 Personal history of nicotine dependence; Z79.82 Long term (current) use of aspirin; Z88.1 Allergy status to other antibiotic agents; Z88.8 Allergy status to other drugs, medicaments and biological substances; W01.0XXA Fall on same level from slipping, tripping and stumbling without subsequent striking against object, initial encounter; Y92.009 Unspecified place in unspecified non-institutional (private) residence as the place of occurrence of the external cause
CPT/HCPCS: 73630

== ENCOUNTER → 2019-05-21 | Outpatient (CLI) | payer MEDICARE, MEDICAID ==
--- NOTE | 2019-05-21 13:01 | Diagnostic Imaging Report ---
PROCEDURE: US left lower extremity venous. TECHNIQUE: Multiple real-time grayscale images were obtained over the left lower extremity in various projections. Additional duplex Doppler and color Doppler images were also obtained. INDICATION: Left calf pain. FINDINGS: There is no evidence of left lower extremity DVT. Left lower extremity deep venous system shows normal compressibility with normal response to augmentation and Valsalva. No fluid collection or mass is seen. IMPRESSION: No evidence of left lower extremity DVT. Dictated by: Dictated on workstation # [id number]
== END ==
LOC: RAD 11:30
PROVIDERS: ATTEND Nurse Practitioner Family
DX: M79.662 Pain in left lower leg (principal)

== ENCOUNTER → 2019-10-07 | Outpatient (CLI) | payer MEDICARE, MEDICAID ==
--- NOTE | 2019-10-07 17:32 | Diagnostic Imaging Report ---
CT Lung Screening INDICATION:35 pack-year smoking history. TECHNIQUE: Noncontrast, low-dose CT imaging performed according to the lung cancer screening protocol. Auto Exposure Controls were utilize during the CT exam to meet ALARA standards for radiation dose reduction. COMPARISON: CT low-dose lung cancer screening exam of 07/11/2018. FINDINGS: The previous CT low-dose lung cancer screening exam of 07/11/2018 failed to show any parenchymal lung mass that would suggest neoplastic disease. On this study, there is still no sign of a parenchymal lung mass. The scar formation and chronic atelectasis involving the lingula noted on the prior study are again evident and no different. There is no sign of pneumonia, failure, or pleural effusion to indicate an acute abnormality. The heart size is within normal limits. Coronary artery calcifications are noted. There is no obvious mediastinal or hilar adenopathy. The aorta is not abnormally dilated. There is no definite breast mass visualized. The thyroid gland is partially obscured by streak artifact. The sections through the upper abdomen failed to show any sign of an acute abnormality. The bone windows are unremarkable for a fracture or for a destructive lesion. IMPRESSION: 1. There is still no evidence for a parenchymal lung mass that would suggest neoplastic disease. A follow-up low-dose lung cancer screening exam in one year would be recommended for continued evaluation. 2. The chronic pulmonary changes involving the lingula seen previously are again evident and no different. There is no sign of an acute cardiopulmonary abnormality. 3. There is coronary artery disease. LUNG-RADS CATEGORY:1 MODIFIER: OTHER SIGNIFICANT FINDINGS: Dictated by: Dictated on workstation # [id number]
== END ==
LOC: RAD 13:17
PROVIDERS: ATTEND Nurse Practitioner Family
DX: Z12.2 Encounter for screening for malignant neoplasm of respiratory organs (principal); I25.10 Atherosclerotic heart disease of native coronary artery without angina pectoris; J98.4 Other disorders of lung; Z87.891 Personal history of nicotine dependence

== ENCOUNTER → 2020-08-11 | Outpatient (CLI) | payer MEDICARE, MEDICAID | LOC: CARD 08:39 | PROVIDERS: ATTEND Physician Assistant | DX: I25.10 Atherosclerotic heart disease of native coronary artery without angina pectoris (principal); I34.0 Nonrheumatic mitral (valve) insufficiency; I10 Essential (primary) hypertension | CPT/HCPCS: 93306 ==

== ENCOUNTER → 2020-09-07 | Outpatient (CLI) | payer MEDICARE, MEDICAID ==
[~2020-09-07] VITALS: Ht 165 cm; Wt 94.0 kg
[~2020-09-07] MED LIST changes: +CATHETER FLUSH 10 ML SYR IV PRN; +REGADENOSON 0.4 MG/5 ML SYR (LEXISCAN) IV ONE
[2020-09-07 09:18] VITALS: BP 113/82
--- NOTE | 2020-09-07 11:00 | Cardiology Stress Test Report ---
Stress Test Report Date of Procedure/Referring: Date of Procedure: September 07, 2020 Marleny Tenorio Admitting Physician Indira Skaggs DO Indications: CAD Baseline Heart Rate: 73 Baseline Blood Pressure: Blood Pressure Systolic: 113 Blood Pressure Diastolic: 82 Baseline Vitals Vital Signs Date Time Temp Pulse Resp B/P (MAP) Pulse Ox O2 Delivery O2 Flow Rate FiO2 09/07/20 09:18 73 113/82 (92) 93 Summary After explaining the procedure to the patient, she signed a consent and then brought to the stress nuclear laboratory. Patient received 0.4 mg Lexiscan for stress test, ECG, heart rate and blood pressure were monitored continuously. Resting and stress dose of radio tracer were injected, imaging was acquired and reviewed in short axis, horizontal long axis and vertical long axis views. TID: 1.02 SSS: 2 SDS: 2 EF: 60 1. Patient tolerated Lexiscan well 2. No ischemia or infarction on SPECT images 3. Normal left ventricular size, EF 60% CAROLINA ABAD MD September 07, 2020 11:00
== END ==
LOC: CARD 07:45
PROVIDERS: ATTEND Physician Assistant
DX: I25.10 Atherosclerotic heart disease of native coronary artery without angina pectoris (principal); I10 Essential (primary) hypertension
CPT/HCPCS: 78452; 93017

== ENCOUNTER → 2020-10-06 | Outpatient (CLI) | payer MEDICARE, MEDICAID ==
[~2020-10-06] MED LIST changes: -CATHETER FLUSH 10 ML SYR IV PRN; -REGADENOSON 0.4 MG/5 ML SYR (LEXISCAN) IV ONE
--- NOTE | 2020-10-06 11:08 | Diagnostic Imaging Report ---
INDICATION: Postmenopausal state. COMPARISON: June 12, 2018. FINDINGS: AP Spine L1-L4: [BMD (g/cm2): 0.984] [T-Score: -1.8] [Z-Score: -1.5] [BMD Previous: 1.034] [BMD % Change: -4.8] LT Hip Neck: [BMD (g/cm2): 0.864] [T-Score: -1.3] [Z-Score: -0.6] LT Hip Total: [BMD (g/cm2):0.969] [T-Score:-0.3] [Z-Score: 0.0] [BMD Previous: 0.987] [BMD % Change: -1.8] RT Hip Neck: [BMD (g/cm2):0.843] [T-Score:-1.4] [Z-Score:-0.8] RT Hip Total: [BMD (g/cm2):0.993] [T-score:-0.1] [Z-Score:0.2] [BMD Previous:0.971] [BMD % Change:2.3] *Indicates significant change from prior examination based on 95% confidence level. World Health Organization criteria for BMD interpretation classify patients as Normal (T-score at or above -1.0), Osteopenic (T-score between -1.0 and -2.5) or Osteoporotic (T-score at or below -2.5). LIMITATIONS AND MODIFICATION: None. FRACTURE RISK (FRAX SCORE): The ten year probability of (%): Major Osteoporotic Fracture: [12.7] Hip Fracture: [1.0] IMPRESSION: 1. Osteopenia (Low bone mass). 2. No significant change in bone mineral density since prior examination. 3. See below National Osteoporosis Foundation guidelines on when to potentially initiate pharmacologic therapy. Based on the National Osteoporosis Foundation Guidelines, pharmacologic treatment should be initiated in any of the following, unless clinical conditions suggest otherwise: * Any patient with prior fragility fracture of the hip or vertebrae. A spine fracture indicates 5X risk for subsequent spine fracture and 2X risk for subsequent hip fracture. * Osteoporosis (T-score <-2.5). * Postmenopausal women and men age 50 and older with low bone mass/osteopenia (T-score between -1.0 and -2.5) by DXA and 10-year major osteoporotic fracture greater than 20% or a 10-year probability of hip fracture greater than 3%. These fracture risks are supplied above in the FRAX score, if applicable. * Clinician judgement and/or patient preferences may indicate treatment for people with 10-year fracture probabilities above or below these levels. Dictated by: Dictated on workstation # [id number]
--- NOTE | 2020-10-06 15:19 | Diagnostic Imaging Report ---
INDICATION: Routine screening. COMPARISON: 06/12/2018 and 05/18/2017. TECHNIQUE: 2D and 3D bilateral screening mammography was performed with CAD. FINDINGS: Scattered fibroglandular densities are identified bilaterally. There are benign calcifications in both breasts. No mass or malignant appearing microcalcifications are seen. The axillae are unremarkable. IMPRESSION: No mammographic features suspicious for malignancy are identified. ACR BI-RADS Category 2: Benign findings. Result letter will be mailed to the patient. Note: At least 10% of breast cancer is not imaged by mammography. Dictated by: Dictated on workstation # [id number]
== END ==
LOC: RAD 10:15
PROVIDERS: ATTEND Nurse Practitioner Family
DX: Z12.31 Encounter for screening mammogram for malignant neoplasm of breast (principal); M85.80 Other specified disorders of bone density and structure, unspecified site; Z78.0 Asymptomatic menopausal state
CPT/HCPCS: 77063; 77067; 77080

== ENCOUNTER 2021-07-30 13:15 | Emergency (ER) | payer MEDICARE, MEDICAID ==
[~2021-07-30] VITALS: Ht 165.1 cm; Wt 96.2 kg
[2021-07-30] MEDS ORDERED: CLINDAMYCIN 900 MG/50 ML IVPB 50 ML IV ONE (13:30)
[2021-07-30] MEDS ORDERED: ACYCLOVIR INJECTION 800 MG in NS (IVPB) 250 ML IV ONE (13:30)
--- NOTE | 2021-07-30 13:37 | ED General ---
General Stated Complaint: R EAR SWELLING Source of Information: Patient Exam Limitations: No Limitations History of Present Illness Date Seen by Provider: Jul 30, 2021 Time Seen by Provider: 13:32 Initial Comments To ER by private vehicle from [facility] with reports of right ear/facial swelling x3 days no fevers. She had something similar to this 3 years ago at [facility] in [place] and was diagnosed with a salivary gland infection she states. She was seen by [facility] this morning and was referred to the emergency room for an IV she states. Timing/Duration: 1-2 Days Severity: Moderate Associated Systoms: Denies Symptoms Allergies and Home Medications Allergies Coded Allergies: carbamazepine (Unverified Allergy, Mild, 03/22/09) erythromycin base (Unverified Allergy, Mild, 03/22/09) pentazocine (Unverified Allergy, Mild, 03/22/09) phenytoin (Unverified Allergy, Mild, 03/22/09) propoxyphene (Unverified Allergy, Mild, 03/22/09) theophylline (Unverified Allergy, Mild, 03/22/09) Patient Home Medication List Home Medication List Reviewed: Yes Albuterol (Proair Hfa) 8.5 Gm Hfa.aer.ad, 2 PUFF IH QID PRN for WHEEZING, (Reported) Entered as Reported by: NICO RODAS on 08/22/122322 Albuterol/Ipratropium (Duoneb Rt) 3 Ml Nebu, 3 ML INH TID, (Reported) Entered as Reported by: NICO RODAS on 08/22/122322 Alendronate Sodium (Fosamax) 70 Mg Tablet, 70 MG PO WEEKLY, (Reported) Entered as Reported by: MACI MATTHEWS on 08/13/14739 Aspirin (Aspirin 325 Mg Tab) 325 Mg Tab, 325 MG PO DAILY, (Reported) Entered as Reported by: MACI SALGADO on 12/16/10 1518 Cholecalciferol (Vitamin D) 1,000 Unit Tab, 1,000 UNIT PO DAILY, (Reported) Entered as Reported by: MACI MATTHEWS on 08/13/14739 Docusate Sodium (Colace) 100 Mg Cap, 100 MG PO BID, (Reported) Entered as Reported by: MACI MATTHEWS on 08/13/14 07 Esomeprazole Mag Trihydrate (Nexium) 40 Mg Capsule.dr, 40 MG PO BID, (Reported) Entered as Reported by: LAMBERT CALLAWAY on 09/14/11 1423 Gabapentin (Neurontin) 800 Mg Tablet, 800 MG PO QID, (Reported) Entered as Reported by: MARQUISE MURILLO on 07/22/13 1037 Glipizide (Glipizide) 5 Mg Tablet, 5 MG PO BID, (Reported) Entered as Reported by: MACI MATTHEWS on 08/13/14 07 Hydrochlorothiazide (Hydrochlorothiazide) 25 Mg Tablet, 25 MG PO DAILY, (Reported) Entered as Reported by: NICO RODAS on 08/22/12 2323 Hydrocodone Bit/Acetaminophen (Hydrocodone-Apap 7.5/325 Tab) 1 Tab Tablet, 1 TAB PO TID, (Reported) Entered as Reported by: MACI MATTHEWS on 08/13/14 07 Lisinopril (Zestril) 2.5 Mg Tablet, 2.5 MG PO DAILY, (Reported) Entered as Reported by: MACI SALGADO on 12/16/10 1518 Loratadine (Claritin) 10 Mg Tab, 10 MG PO DAILY, (Reported) Entered as Reported by: NICO RODAS on 08/22/12 2323 Metoprolol Tartrate (Metoprolol Tartrate 25 Mg) 25 Mg Tablet, 25 MG PO HS, (Reported) Entered as Reported by: NICO RODAS on 08/22/12 2323 Metoprolol Tartrate (Metoprolol Tartrate 25 Mg) 25 Mg Tablet, 50 MG PO DAILY, (Reported) Entered as Reported by: NICO RODAS on 08/22/12 2323 Mirtazapine (Mirtazapine 45 Mg) 45 Mg Tablet, 45 MG PO HS, (Reported) Entered as Reported by: MACI MATTHEWS on 08/13/14 07 [place]-3/Dha/Epa/Fish Oil (Fish Oil 500 Mg Softgel) 1 Each Capsule, 2,000 MG PO DAILY, (Reported) Entered as Reported by: MARQUISE MURILLO on 07/22/13 1037 Pregabalin (Lyrica) 100 Mg Capsule, 100 MG PO BID, (Reported) Entered as Reported by: MACI MATTHEWS on 08/13/14 07 Rosuvastatin Calcium (Crestor) 40 Mg Tablet, 40 MG PO DAILY, (Reported) Entered as Reported by: NICO RODAS on 08/22/12 2323 Sertraline Hcl (Zoloft) 100 Mg Tab, 150 MG PO DAILY, (Reported) Entered as Reported by: NICO RODAS on 08/22/12 232 Sucralfate (Carafate) 1 Gm Tab, 1 GM PO ACHS, (Reported) Entered as Reported by: LAMBERT CALLAWAY on 09/14/11 1423 Tizanidine Hcl (Zanaflex) 4 Mg Capsule, 8 MG PO TID, (Reported) Entered as Reported by: MARQUISE MURILLO on 07/22/13 1037 [Azmacort] , 1 PUFF INH BID, (Reported) Entered as Reported by: MACI MATTHEWS on 08/13/14 0740 Review of Systems Review of Systems Constitutional: see HPI EENTM: see HPI Respiratory: no symptoms reported Cardiovascular: no symptoms reported Genitourinary: no symptoms reported Musculoskeletal: no symptoms reported Skin: no symptoms reported Psychiatric/Neurological: No Symptoms Reported Hematologic/Lymphatic: No Symptoms Reported Past Iysezaj-Kxqqdg-Yulkns Hx Immunizations Up To Date Tetanus Booster (TDap): More than 5yrs Past Medical History Surgeries: Yes (OVARIAN CYST, CARPAL TUNNEL, ) Coronary Stent, Gallbladder, Hysterectomy, Orthopedic, Tubal Ligation Respiratory: Yes Emphysema Cardiac: Yes Hypertension Neurological: Yes (CEREBELLAR DEGENERATION) Neuropathy, Stroke Reproductive Disorders: Yes (HYSTERECTOMY 1993) Female Reproductive Disorders: Polycystic Ovarian Dis Sexually Transmitted Disease: No Gastrointestinal: Yes Gastroesophageal Reflux, Ulcer, Gall Bladder Disease Musculoskeletal: Yes Osteoporosis, Arthritis Endocrine: Yes Diabetes, Non-Insulin dep Cataract Loss of Vision: Denies Hearing Impairment: Hard of Hearing Cancer: Yes Cervical Psychosocial: Yes Sleep Difficulties, Anxiety, Depression Integumentary: Yes Eczema Blood Disorders: No Family Medical History No Pertinent Family Hx Physical Exam Vital Signs Vital Signs - First Documented 07/30/21 13:24 Temp 38.0 Pulse 78 Resp 19 B/P (MAP) 131/74 (93) Pulse Ox 98 O2 Delivery Room Air Capillary Refill : Height, Weight, BMI Height: 5'5.00" Weight: 215lbs. 0oz. [id number]; 34.52 BMI Method:Stated General Appearance: No Apparent Distress, WD/WN Eyes: Bilateral Eye Normal Inspection, Bilateral Eye PERRL, Bilateral Eye EOMI HEENT: PERRL/EOMI, TMs Normal, Other (Right side of the face starting just anterior and superior to the tragus of the right ear there is an indurated area of erythema. There are a few small areas of ulceration with honey colored crust overlying this. The entire external ear is erythematous and edematous. Posterior aspect of the external ear has a cluster of vesicles. She reports this is very painful. This does seem to cross the midline of her forehead and spread slightly to the left side of the forehead as well but to a lesser degree. There are no vesicles within the ear canal and there is no right-sided facial droop or asymmetry.) Neck: Full Range of Motion, Normal Inspection Respiratory: No Accessory Muscle Use Cardiovascular: Regular Rate, Rhythm, Normal Peripheral Pulses Gastrointestinal: Normal Bowel Sounds, Non Tender, Soft Extremity: Normal Capillary Refill, Normal Inspection Neurologic/Psychiatric: Alert, Oriented x3 Skin: Normal Color, Warm/Dry Progress/Results/Core Measures Suspected Sepsis SIRS Temperature: Pulse: Respiratory Rate: Laboratory Tests 07/30/21 14:00: White Blood Count 9.9 Blood Pressure / Mean: Laboratory Tests 07/30/21 14:00: Creatinine 0.94, Platelet Count 180, Total Bilirubin 0.6 Results/Orders Lab Results Laboratory Tests Test 07/30/21 14:00 Range/Units White Blood Count 9.9 4.3-11.0 10^3/uL Red Blood Count 5.09 3.80-5.11 10^6/uL Hemoglobin 13.6 11.5-16.0 g/dL Hematocrit 43 35-52 % Mean Corpuscular Volume 85 80-99 fL Mean Corpuscular Hemoglobin 27 25-34 pg Mean Corpuscular Hemoglobin Concent 32 32-36 g/dL Red Cell Distribution Width 16.2 H 10.0-14.5 % Platelet Count 180 130-400 10^3/uL Mean Platelet Volume 10.6 9.0-12.2 fL Immature Granulocyte % (Auto) 1 % Neutrophils (%) (Auto) 90 H 42-75 % Lymphocytes (%) (Auto) 6 L 12-44 % Monocytes (%) (Auto) 3 0-12 % Eosinophils (%) (Auto) 0 0-10 % Basophils (%) (Auto) 0 0-10 % Neutrophils # (Auto) 8.9 H 1.8-7.8 10^3/uL Lymphocytes # (Auto) 0.6 L 1.0-4.0 10^3/uL Monocytes # (Auto) 0.3 0.0-1.0 10^3/uL Eosinophils # (Auto) 0.0 0.0-0.3 10^3/uL Basophils # (Auto) 0.0 0.0-0.1 10^3/uL Immature Granulocyte # (Auto) 0.1 0.0-0.1 10^3/uL Neutrophils % (Manual) 91 % Lymphocytes % (Manual) 7 % Monocytes % (Manual) 1 % Band Neutrophils 1 % Percent Immature Platelet Fraction 3.9 0.0-7.6 % Blood Morphology Comment NORMAL Sodium Level 133 L 135-145 MMOL/L Potassium Level 4.0 3.6-5.0 MMOL/L Chloride Level 92 L 98-107 MMOL/L Carbon Dioxide Level 24 21-32 MMOL/L Anion Gap 17 H 5-14 MMOL/L Blood Urea Nitrogen 17 7-18 MG/DL Creatinine 0.94 0.60-1.30 MG/DL Estimat Glomerular Filtration Rate 69 BUN/Creatinine Ratio 18 Glucose Level 110 H 70-105 MG/DL Calcium Level 10.1 8.5-10.1 MG/DL Corrected Calcium 9.8 8.5-10.1 MG/DL Total Bilirubin 0.6 0.1-1.0 MG/DL Aspartate Amino Transf (AST/SGOT) 164 H 5-34 U/L Alanine Aminotransferase (ALT/SGPT) 117 H 0-55 U/L Alkaline Phosphatase 88 40-136 U/L Total Protein 8.3 H 6.4-8.2 GM/DL Albumin 4.4 3.2-4.5 GM/DL My Orders Orders - EVANS ROGEL APRN Cbc With Automated Diff (07/30/21 13:29) Comprehensive Metabolic Panel (07/30/21 13:29) Ed Iv/Invasive Line Start (07/30/21 13:29) Clindamycin 900 Mg/50 Ml Ivpb (Cleocin P (07/30/21 13:30) Acyclovir Injection (Zovirax Injection) (07/30/21 13:30) Manual Differential (07/30/21 14:00) Ct Maxillofacial Wo (07/30/21 14:39) Medications Given in ED Current Medications Medications Dose Ordered Sig/Celso Route Start Time Stop Time Status Last Admin Dose Admin Clindamycin Phosphate/Dextrose 50 ml @ 100 mls/hr ONCE ONCE IV 07/30/21 13:30 07/30/21 13:59 DC 07/30/21 15:18 100 MLS/HR Vital Signs/I&O 07/30/21 13:24 Temp 38.0 Pulse 78 Resp 19 B/P (MAP) 131/74 (93) Pulse Ox 98 O2 Delivery Room Air Capillary Refill : Departure Communication (Admissions) 1335-differential includes facial cellulitis versus herpes zoster oticus. There are no lesions on the eye and there is no eye pain or tearing or conjunctivitis. Empiric clindamycin and acyclovir IV ordered. Labs pending. Impression Primary Impression: Herpes zoster oticus Disposition: HOME, SELF-CARE Condition: Stable Departure-Patient Inst. Decision time for Depature: 15:51 Referrals: GIGI ROSE DO (PCP) Primary Care Physician MAXIME IZQUIERDO (Family) Primary Care Physician Patient Instructions: Shingles Add. Discharge Instructions: 1. Continue the oral antibiotics and the pain medicine given yesterday. Add the steroids and the antiviral called Natalia acyclovir starting later today. Return promptly to ER for any drainage of the right eye, matting of the right eye, pain in the right eye or vision changes. Follow-up with your doctor next week for recheck. Scripts Prednisone (Prednisone) 20 Mg Tab 20 MG PO DAILY, #11 TAB Take 3 tabs(60mg)daily, decrease by 1/2 tab(10mg)daily. Prov: EVANS ROGEL APRN 07/30/21 Valacyclovir HCl (Valacyclovir) 1,000 Mg Tablet 1000 MG PO TID, #21 TAB Prov: EVANS ROGEL APRN 07/30/21 EVANS ROGEL APRN Jul 30, 2021 13:37
[2021-07-30 14:06] LABS: BASOPHILS % (AUTO) 0 % (0-10); EOSINOPHILS % (AUTO) 0 % (0-10); HEMATOCRIT 43 % (35-52); LYMPHOCYTES # (AUTO) 0.6 10^3/uL (1.0-4.0); LYMPHOCYTES % (AUTO) 6 % (12-44); MEAN CORPUSCULAR HEMOGLOBIN 27 pg (25-34); MEAN CORPUSCULAR HGB CONC 32 g/dL (32-36); MEAN CORPUSCULAR VOLUME 85 fL (80-99); MEAN PLATELET VOLUME 10.6 fL (9.0-12.2); MONOCYTES # (AUTO) 0.3 10^3/uL (0.0-1.0); MONOCYTES % (AUTO) 3 % (0-12); NEUTROPHILS % (AUTO) 90 % (42-75)
[2021-07-30 14:08] LABS: HEMOGLOBIN 13.6 g/dL (11.5-16.0); PLATELET COUNT 180 10^3/uL (130-400); WHITE BLOOD COUNT 9.9 10^3/uL (4.3-11.0)
[2021-07-30 14:09] LABS: NEUTROPHILS # (AUTO) 8.9 10^3/uL (1.8-7.8)
[2021-07-30 14:21] LABS: ALBUMIN 4.4 GM/DL (3.2-4.5)
[2021-07-30 14:22] LABS: CALCIUM 10.1 MG/DL (8.5-10.1)
[2021-07-30 14:24] LABS: TOTAL PROTEIN 8.3 GM/DL (6.4-8.2)
[2021-07-30 14:26] LABS: BILIRUBIN,TOTAL 0.6 MG/DL (0.1-1.0)
[2021-07-30 14:27] LABS: CREATININE SERUM 0.94 MG/DL (0.60-1.30)
[2021-07-30 14:46] LABS: BAND NEUTROPHILS 1 %; LYMPHOCYTES % (MANUAL) 7 %; MONOCYTES % (MANUAL) 1 %; NEUTROPHILS % (MANUAL) 91 %; RBC MORPH NORMAL
--- NOTE | 2021-07-30 15:11 | Diagnostic Imaging Report ---
PROCEDURE: CT maxillofacial without contrast. TECHNIQUE: Multiple contiguous axial images were obtained through the facial bones without the use of intravenous contrast. Auto Exposure Controls were utilized during the CT exam to meet ALARA standards for radiation dose reduction. INDICATION: Facial and right-sided periauricular pain and swelling. FINDINGS: The intracranial contents are suboptimally evaluated owing to technique and only partially included in the [id number]. There is likely area of encephalomalacia in the left frontal lobe. It could be an arachnoid cyst. Frontal sinuses are clear. The orbital contents and orbital burgess are intact. Nasal bones and bony nasal septum are intact. The maxillary sinuses are clear. Sphenoid sinuses are clear. The partially visualized mastoid air cells that are included in the [id number] are clear. Left middle ear cavity is clear. The right middle ear cavity and both external auditory canals are largely outside the [id number]. The mandible is intact. There are intracranial atherosclerotic carotid vascular calcifications. No acute finding identified. IMPRESSION: Clear paranasal sinuses. Unremarkable orbital contents. No facial fracture or fluid collection. The partially visualized mastoids showed no effusion. Dictated by: Dictated on workstation # [id number]
[2021-07-30] MEDS ORDERED: VALA10007 PO (15:53)
[2021-07-30] MEDS ORDERED: PRD20T PO (15:53)
[2021-07-30 17:59] VITALS: BP 112/65
== END 2021-07-30 17:59 | disposition home or self-care (01) ==
LOC: EDUNIT# 13:15 → ER 13:16
DX: B02.21 Postherpetic geniculate ganglionitis (principal)
CPT/HCPCS: 36415; 70486; 80053; 85007; 85027

== ENCOUNTER → 2022-04-20 | Outpatient (CLI) | payer MEDICARE, MEDICAID ==
[~2022-04-20] MED LIST changes: +CATHETER FLUSH 10 ML SYR IVP PRN; +PRD20T PO; +REGADENOSON 0.4 MG/5 ML SYR (LEXISCAN) IV ONE; +VALA10007 PO
[2022-04-20 13:09] VITALS: BP 144/92
--- NOTE | 2022-04-20 16:08 | Cardiology Stress Test Report ---
Stress Test Report Date of Procedure/Referring: Date of Procedure: Apr 20, 2022 PCP Indira Skaggs DO Admitting Physician Admitting Physician: Attending Physician: Carolina Lee MD Baseline Heart Rate: 75 Baseline Blood Pressure: Blood Pressure Systolic: 144 Blood Pressure Diastolic: 92 Baseline Vitals Vital Signs Date Time Temp Pulse Resp B/P (MAP) Pulse Ox O2 Delivery O2 Flow Rate FiO2 04/20/22 13:09 95 99 144/92 (109) Room Air Baseline EKG: Baseline EKG: NSR Summary After explaining the procedure to the patient, she signed a consent and then brought to the stress nuclear laboratory. Patient received 0.4 mg Lexiscan for stress test, ECG, heart rate and blood pressure were monitored continuously. Resting and stress dose of radio tracer were injected, imaging was acquired and reviewed in short axis, horizontal long axis and vertical long axis views. TID: 1.18 SSS: 4 SDS: 4 EF: 67 1. Patient tolerated Lexiscan well 2. Breast attenuation with mild decrease uptake at the basal to mid anterior wall with mild reversibility most probably secondary to breast attenuation 3. No significant ischemia or infarction noted on SPECT images 4. Normal left ventricular size, ejection fraction 67% Copy Copies To 1: [facility] CAROLINA LEE MD Apr 20, 2022 16:08
== END ==
LOC: CARD 09:50
PROVIDERS: ATTEND Internal Medicine Cardiovascular Disease
DX: I34.0 Nonrheumatic mitral (valve) insufficiency (principal); I25.10 Atherosclerotic heart disease of native coronary artery without angina pectoris; I10 Essential (primary) hypertension
CPT/HCPCS: 78452; 93017; 93306